=== PATIENT | female | born 1935 | race Caucasian/White ===

== ENCOUNTER 2017-09-15 11:22 | Emergency (ER) | payer OTHER ==
[~2017-09-15] VITALS: Ht 152.4 cm; Wt 72.0 kg
[2017-09-15 11:27] VITALS: TEMP 36.4; Ht 152.4 cm; Wt 72.0 kg
[2017-09-15] MEDS ORDERED: ALBUT/IPRATROP 3MG/0.5MG NEB 3 ML VIAL INH ONE (12:15)
[2017-09-15] MEDS ORDERED: VNTHFA/IN INH ×2 (12:16→14:04)
[2017-09-15] MEDS ORDERED: METF-841 PO (12:16)
[2017-09-15] MEDS ORDERED: FLUT115A INH (12:16)
[2017-09-15] MEDS ORDERED: ATOR-22 PO (12:16)
[2017-09-15] MEDS ORDERED: CARV6.252 PO (12:16)
[2017-09-15] MEDS ORDERED: INSU1INJ33 SQ (12:16)
[2017-09-15] MEDS ORDERED: CLOP1TAB15 PO (12:16)
[2017-09-15] MEDS ORDERED: LISI2.5T5 PO (12:16)
[2017-09-15] MEDS ORDERED: LEVO88TA PO (12:16)
[2017-09-15] MEDS ORDERED: CEFU1TAB33 PO (12:16)
--- NOTE | 2017-09-15 12:17 | EMERGENCY ROOM VISIT NOTE ---
History Report prepared by Anila: Jamir Ly Under the Supervision of: Dr. Edwin Pak M.D. First contact with patient: 11:57 Chief Complaint: FLU LIKE SX Stated Complaint: COUGH,CONGESTION,WEAKNESS,FEVER,BODY ACHES History of Present Illness The patient is an 81 year old female who presents to the Emergency Room with complaints of a constant illness for the past week. The patient is complaining of congestion, weakness, fever, body aches, and she states that she is coughing up green phlegm. The patient states that she was given cefuroxime three days ago , and she was negative for the flu. She additionally is on inhalers at home, though she is not on oxygen. The patient notes that she is having some abdominal soreness, and she is unsure if it is due to the coughing. She is currently on Plavix for her stents. The patient used to smoke, though she no longer does. Source of History: patient Onset: a week ago Position: other (global) Quality: other (illness) Timing: constant Associated Symptoms: + fevers, + cough, + weakness Note: Associated symptoms: congestion, body aches Review of Systems See HPI for pertinent positives & negatives. A total of 10 systems reviewed and were otherwise negative. Past Medical & Surgical Surgical Problems: (1) History of intravascular stent placement Family History Cancer Diabetes mellitus Hypertension Social History Smoking Status: Former Smoker Marital Status: Occupation Status: retired Current/Historical Medications Scheduled Albuterol Hfa (Ventolin Hfa), 2-4 PUFFS INH Q6H Atorvastatin (Lipitor), 20 MG PO DAILY Carvedilol (Coreg), 6.25 MG PO BID Cefuroxime Axetil (Cefuroxime Axetil), 250 MG PO BID Clopidogrel (Plavix), 75 MG PO DAILY Insulin Degludec (Tresiba Flextouch), 120 UNITS SQ DAILY Levothyroxine Sodium (Synthroid), 88 MCG PO DAILY Lisinopril (Lisinopril), 2.5 MG PO DAILY Metformin HCl (Metformin HCl ER), 1,000 MG PO HS Prednisone (Prednisone Tab), 0 PO DAILY Scheduled PRN Albuterol Hfa (Ventolin Hfa), 2-4 PUFFS INH Q6H PRN for SOB/Wheezing Fluticasone-Salmeterol 115/21 Mcg (Advair Hfa 115/21 Mcg), 1 PUFF INH BID PRN for SOB/Wheezing Hydrocodone W/ Homatropine (Hycodan 5/1.5MG 5 Ml), 5 ML PO HS PRN for Cough Allergies Coded Allergies: Amoxicillin (Unverified Allergy, Unknown, ., 09/15/17) Clavulanic Acid (Unverified Allergy, Unknown, ., 09/15/17) Vitamin E (Unverified Allergy, Unknown, ., 09/15/17) Physical Exam Vital Signs Date Time Temp Pulse Resp B/P (MAP) Pulse Ox O2 Delivery O2 Flow Rate FiO2 09/15/17 14:20 61 18 172/51 96 09/15/17 14:03 61 18 172/51 96 Room Air 09/15/17 13:59 Room Air 09/15/17 12:34 56 16 95 Room Air 09/15/17 12:20 Room Air 09/15/17 11:27 36.4 56 21 139/62 95 Room Air Physical Exam GENERAL: Patient is a healthy-appearing well-nourished female HEAD: Normocephalic atraumatic EYES: Ocular movements intact pupils equal and react to light OROPHARYNX mucous membranes are moist no exudates present no erythema or edema present NECK: Supple no nuchal rigidity CHEST: Good equal expansion LUNGS: Clear and equal to auscultation CARDIAC: Normal S1 and S2 ABDOMEN: Soft nontender no guarding BACK: No CVA tenderness EXTREMITIES: No pain upon palpation normal muscle strength in all groups no clubbing cyanosis or edema NEURO: Patient is following commands is answering questions appropriately. Alert and oriented x3 Cranial Nerves 2-12 grossly intact Medical Decision & Procedures ER Provider Diagnostic Interpretation: Radiology results as stated below per my review and radiologist interpretation: CHEST ONE VIEW PORTABLE HISTORY: Short of breath. COMPARISON: None. FINDINGS: Left subclavian stent is noted. Small linear scarlike density within the right upper lobe. The lungs are otherwise clear. The heart is normal in size. No pleural effusions. No pneumothorax. IMPRESSION: No acute process. Electronically signed by: Sunday Enciso M.D. 09/15/2017 12:33 PM Dictated Date/Time: 09/15/2017 12:32 PM Laboratory Results 09/15/17 12:30 Red Blood Count 4.84, Mean Corpuscular Volume 89.7, Mean Corpuscular Hemoglobin 30.2, Mean Corpuscular Hemoglobin Concent 33.6, Mean Platelet Volume 9.9, Neutrophils (%) (Auto) 56.5, Lymphocytes (%) (Auto) 29.9, Monocytes (%) (Auto) 9.3, Eosinophils (%) (Auto) 3.5, Basophils (%) (Auto) 0.3, Neutrophils # (Auto) 5.19, Lymphocytes # (Auto) 2.75, Monocytes # (Auto) 0.86, Eosinophils # (Auto) 0.32, Basophils # (Auto) 0.03 09/15/17 12:30 Test 09/15/17 12:15 09/15/17 12:23 09/15/17 12:30 Influenza Type A (RT-PCR) Neg for Influ A (NEG) Influenza Type A Antigen Neg for Influ A (NEG) Influenza Type B Antigen Neg for Influ B (NEG) Influenza Type B (RT-PCR) Neg for Influ B (NEG) White Blood Count 9.20 K/uL (4.8-10.8) Red Blood Count 4.84 M/uL (4.2-5.4) Hemoglobin 14.6 g/dL (12.0-16.0) Hematocrit 43.4 % (37-47) Mean Corpuscular Volume 89.7 fL (80-100) Mean Corpuscular Hemoglobin 30.2 pg (25-34) Mean Corpuscular Hemoglobin Concent 33.6 g/dl (32-36) Platelet Count 219 K/uL (130-400) Mean Platelet Volume 9.9 fL (7.4-10.4) Neutrophils (%) (Auto) 56.5 % Lymphocytes (%) (Auto) 29.9 % Monocytes (%) (Auto) 9.3 % Eosinophils (%) (Auto) 3.5 % Basophils (%) (Auto) 0.3 % Neutrophils # (Auto) 5.19 K/uL (1.4-6.5) Lymphocytes # (Auto) 2.75 K/uL (1.2-3.4) Monocytes # (Auto) 0.86 K/uL (0.11-0.59) Eosinophils # (Auto) 0.32 K/uL (0-0.5) Basophils # (Auto) 0.03 K/uL (0-0.2) RDW Standard Deviation 44.2 fL (36.4-46.3) RDW Coefficient of Variation 13.4 % (11.5-14.5) Immature Granulocyte % (Auto) 0.5 % Immature Granulocyte # (Auto) 0.05 K/uL (0.00-0.02) Anion Gap 6.0 mmol/L (3-11) Est Creatinine Clear Calc Drug Dose 40.5 ml/min Estimated GFR () 63.1 Estimated GFR (Non- 54.5 BUN/Creatinine Ratio 26.8 (10-20) Calcium Level 9.5 mg/dl (8.5-10.1) Total Bilirubin 0.6 mg/dl (0.2-1) Direct Bilirubin 0.2 mg/dl (0-0.2) Aspartate Amino Transf (AST/SGOT) 25 U/L (15-37) Alanine Aminotransferase (ALT/SGPT) 33 U/L (12-78) Alkaline Phosphatase 111 U/L (45-117) Total Creatine Kinase 92 U/L (26-192) Creatine Kinase MB 3.0 ng/ml (0.5-3.6) Creatine Kinase MB Ratio 3.3 (0-3.0) Troponin I 0.022 ng/ml (0-0.045) Pro-B-Type Natriuretic Peptide 99 pg/ml (0-1800) Total Protein 7.8 gm/dl (6.4-8.2) Albumin 3.7 gm/dl (3.4-5.0) Labs reviewed by ED physician. Medications Administered Medications (Trade) Dose Ordered Sig/Judy Route Start Time Stop Time Status Last Admin Dose Admin Albuterol/ Ipratropium (Duoneb) 12 ml ONE ONCE INH 09/15/17 12:15 09/15/17 12:16 DC 09/15/17 12:29 12 ML Methylprednisolone Sodium Succinate (Solu-Medrol IV) 60 mg NOW STAT IV 09/15/17 13:41 09/15/17 13:42 DC 09/15/17 13:59 60 MG ED Course 1157: Past medical records reviewed. The patient was evaluated in room B5. A complete history and physical examination was performed. 1215: DuoNeb 12ml INH 1341: Solu-Medrol 60mg IV 1410: Upon reexamination the patient is doing well. I discussed results and treatment plan with the patient. She verbalizes agreement and understanding. The patient is ready for discharge. Medical Decision Differential diagnosis: Etiologies such as infections, reactive airway disease, pneumonia, pneumothorax , COPD, CHF, cardiac ischemia, pulmonary embolism, musculoskeletal, gastrointestinal, as well as others were entertained. This is an 81-year-old female who presents emergency department complaining of respiratory like symptoms. The patient has had a cough for the past several days. She is already on cefepime. I will note that the patient is not tachycardic or hypoxic. She was given an hour-long breathing treatment in the emergency department. Her chest x-ray does not show any evidence of pneumonia and the patient does not have an elevation in her white blood cell count. I did discuss starting the patient on steroids and using shared medical decision- making the patient was in agreement with this. I reviewed the risks and benefits. I will put place her on a short steroid taper and encouraged her to continue her cefepime. Patient and daughter were in agreement with the treatment plan. Medication Reconcilliation Current Medication List: was personally reviewed by me Blood Pressure Screening Patient's blood pressure: Elevated blood pressure Blood pressure disposition: Referred to PCP Impression Primary Impression: Acute bronchitis Scribe Attestation The scribe's documentation has been prepared under my direction and personally reviewed by me in its entirety. I confirm that the note above accurately reflects all work, treatment, procedures, and medical decision making performed by me. Departure Information Dispostion Home / Self-Care Prescriptions Albuterol Hfa (VENTOLIN HFA) 200 Puffs/75729 Mcg Aers 2-4 PUFFS INH Q6H, #1 INHALER Prov: Edwin Pak MD 09/15/17 Hydrocodone W/ Homatropine (HYCODAN 5/1.5MG 5 ML) 1 Syp Syp 5 ML PO HS Y for Cough, #120 ML Prov: Edwin Pak MD 09/15/17 Prednisone (Prednisone Tab) 20 Mg Tab 0 PO DAILY, #7 TAB 2 TABS DAILY FOR 2 DAYS, THEN 1 TAB DAILY FOR 2 DAYS, THEN 1/2 TAB DAILY FOR 2 DAYS. Prov: Edwin Pak MD 09/15/17 Referrals Guido Valera M.D. (PCP) Forms HOME CARE DOCUMENTATION FORM, IMPORTANT VISIT INFORMATION, School Instructions, Work Instructions Patient Instructions Bronchitis Acute, [employer] Additional Instructions Use inhaler twice every 6 hours YetYou were found to have an elevated blood pressure today (>120 sytolic or >90 diastolic). Per medicare guidelines, you need to follow up with this blood pressure screening with your Primary Care Physician (PCP). For a new PCP call [phone]. You received narcotic or benzodiazepene medication while in the emergency room today. This is an addictive medication that may cause drowziness as well as constipation. Do not drive, operate heavy machinery, or drink alcohol under the influence of this medication. You have been examined and treated today on an emergency basis only. This is not a substitute for, or an effort to provide, complete comprehensive medical care. It is impossible to recognize and treat all injuries or illnesses in a single emergency department visit. It is therefore important that you follow up closely with Dr Valera. Call as soon as possible for an appointment. Thank you for your time and consideration. I look forward to speaking with you again soon. Please don't hesitate to call us if you have any questions. Problem Qualifiers Primary Impression: Acute bronchitis Bronchitis organism: unspecified organism Qualified Codes: J20.9 - Acute bronchitis, unspecified
[2017-09-15 12:34] VITALS: PULSE 56; O2SAT 95
--- NOTE | 2017-09-15 12:35 | DIAGNOSTIC IMAGING REPORT ---
CHEST ONE VIEW PORTABLE HISTORY: Short of breath. COMPARISON: None. FINDINGS: Left subclavian stent is noted. Small linear scarlike density within the right upper lobe. The lungs are otherwise clear. The heart is normal in size. No pleural effusions. No pneumothorax. IMPRESSION: No acute process. Electronically signed by: Sunday Enciso M.D. 09/15/2017 12:33 PM Dictated Date/Time: 09/15/2017 12:32 PM
[2017-09-15 13:06] LABS: BASO % 0.3 %; BASO ABS # 0.03 K/uL (0-0.2); COMPLETE YES; EOS % 3.5 %; HEMATOCRIT 43.4 % (37-47); IG% 0.5 %; LYMPH % 29.9 %; LYMPH ABS # 2.75 K/uL (1.2-3.4); MEAN CELL VOLUME 89.7 fL (80-100); MEAN CORPUSCULAR HEMOGLOBIN 30.2 pg (25-34); MEAN CORPUSCULAR HGB CONC 33.6 g/dl (32-36); MEAN PLATELET VOLUME 9.9 fL (7.4-10.4); MONO % 9.3 %; NEUT % 56.5 %; PLATELET COUNT 219 K/uL (130-400); RED BLOOD COUNT 4.84 M/uL (4.2-5.4)
[2017-09-15 13:23] LABS: BUN/CREATININE RATIO 26.8 (10-20); CALCIUM 9.5 mg/dl (8.5-10.1); CREATININE 0.98 mg/dl (0.60-1.20); POTASSIUM 4.7 mmol/L (3.5-5.1)
[2017-09-15 13:28] LABS: CKMB/CK RATIO 3.3 (0-3.0)
[2017-09-15] MEDS ORDERED: METHYLPREDNISOLONE 125 MG VIAL IV STA (13:41)
[2017-09-15] MEDS ORDERED: HYDR5SYP11 PO (14:02)
[2017-09-15] MEDS ORDERED: PRED20TA2 PO (14:02)
[2017-09-15 14:20] VITALS: BP 172/51; PULSE 61; O2SAT 96
[2017-09-15 14:48] LABS: INFLUENZA A PCR Neg for Influ A (NEG); INFLUENZA B PCR Neg for Influ B (NEG)
== END 2017-09-15 14:20 | disposition home or self-care (01) ==
LOC: C.EDB 11:25
DX: J20.9 Acute bronchitis, unspecified (principal); Z95.5 Presence of coronary angioplasty implant and graft; Z79.01 Long term (current) use of anticoagulants; Z87.891 Personal history of nicotine dependence; Z83.3 Family history of diabetes mellitus; Z82.49 Family history of ischemic heart disease and other diseases of the circulatory system; Z79.4 Long term (current) use of insulin; Z79.84 Long term (current) use of oral hypoglycemic drugs

== ENCOUNTER → 2018-02-13 | Outpatient (CLI) | payer OTHER ==
[~2018-02-13] MED LIST: ATOR-22 PO; CARV6.252 PO; CEFU1TAB33 PO; CLOP1TAB15 PO; FLUT115A INH; HYDR5SYP11 PO; INSU1INJ33 SQ; LEVO88TA PO; LISI-1116 PO; METF-841 PO; OPTIRAY 320 IV PRN; PRED20TA2 PO; VNTHFA/IN INH
--- NOTE | 2018-02-13 13:28 | DIAGNOSTIC IMAGING REPORT ---
[facility] RUNOFF CLINICAL HISTORY: 82 years-old Female presenting with CLAUDICATION B/L LEGS, extensive postsurgical changes of the vasculature with stenting. TECHNIQUE: Multidetector CT angiography of the abdomen and pelvis with bilateral lower extremity runoff was performed before and after the administration of intravenous contrast. 3-D volumetric and/or maximum intensity projection (MIP) images were subsequently reconstructed for review. IV contrast: 120 mL of Optiray 320. A dose lowering technique was used consistent with the principles of ALARA (as low as reasonably achievable). Stenosis measurements were based on NASCET-like criteria. COMPARISON: None. CT DOSE (mGy.cm): The estimated cumulative dose is 2559.67 mGy.cm. FINDINGS: Export Manager topogram: Unremarkable. Abdomen and pelvis vasculature: Abdominal aorta: Extensive calcified and noncalcified atherosclerotic plaque. Aneurysmal dilatation of the infrarenal portion measuring up to 3.6 cm in diameter. Celiac artery: Patent. Conventional hepatic arterial anatomy. No splenic arterial aneurysm. Superior mesenteric artery: Stent at the origin and proximal portion is patent. Remainder of the SMA also patent. Right renal artery: Atherosclerotic plaque narrows the origin of the single right main renal artery. The remainder of the vessel is patent. No aneurysm. Left renal artery: Atherosclerotic plaque narrows the origin (at least 50% stenosis). The remainder of the single left main renal artery is patent. Inferior mesenteric artery: Stenosis at the origin though the remainder of the vessel is patent. Right iliac arteries: Extensive plaque throughout the patent right common, external, and internal iliac arteries. However, nearly 50% stenosis of the right external iliac artery noted with a minimum diameter of less than 3 mm. Left iliac arteries: Patent stent in place in the left common iliac artery. Patent stent in place in the left external iliac artery. Extensive plaque throughout the patent left internal iliac artery. Right lower extremity vasculature: Right femoral arteries: Diminutive caliber with extensive atherosclerotic plaque of the right common femoral artery. Deep femoral artery patent. Superficial femoral artery occluded from the proximal to midportion and distally. The artery is reconstituted at the level of the abductor hiatus/proximal popliteal artery. Right popliteal artery: Extensive plaque though patent. Right lower leg arteries: Tibioperoneal trunk patent. Posterior tibial artery patent. Anterior tibial and peroneal arteries extremely diminutive and potentially occluded, especially in the distal portions. Right foot: Patent plantar vessels. Dorsalis pedis not opacified, possibly occluded. Left lower extremity vasculature: Left femoral arteries: Diminutive caliber with extensive atherosclerotic plaque of the left common femoral artery. Deep femoral artery patent. Superficial femoral artery patent in the proximal to midportion but occluded in the mid to distal portion. Reconstitution of minimal flow at the level of the abductor hiatus/proximal popliteal artery. Left popliteal artery: Extremely diminutive and irregular proximal popliteal artery with occlusion of the midportion at the level of surgical clips. The artery is reconstituted at the level of the knee joint, where it remains patent for the remainder of the course. Left lower leg arteries: Extensive plaque in the patent tibioperoneal trunk. Posterior tibial artery patent. Anterior tibial artery patent though extremely diminutive in the distal portion. Peroneal artery patent only to the midportion, where the artery is extremely diminutive and cannot be confirmed as patent in the remaining portion. Left foot: Plantar arteries patent. Dorsalis pedis not opacified and potentially occluded. Remaining abdomen and pelvis: Lung bases: Minimal basilar opacities, likely atelectasis. Normal heart size. No pericardial or pleural effusion. Liver: Normal morphology. No focal lesion allowing for arterial phase of contrast to menstrual hepatic arterial anatomy. Biliary: No gross evidence of intrahepatic or extra hepatic biliary ductal dilatation allowing for the phase of contrast. Gallbladder contains gallstones. Pancreas: Mild parenchymal atrophy. Spleen: Normal. Adrenal glands: Nodular thickening of the left adrenal gland, nonspecific. Right adrenal gland normal. Kidneys and ureters: Prominent well-defined hypodensity in the left kidney, likely simple cyst. No hydronephrosis. No nephrolithiasis. Bladder: Incompletely evaluated secondary to underdistention. Pelvic organs: Normal noncontrast appearance. Bowel: Diverticulosis of the sigmoid colon. No pericolonic inflammatory change. Scattered diverticula also noted throughout the colon. Appendiceal stump normal. No bowel obstruction. Peritoneal cavity: No free fluid or intraperitoneal gas. Lymph nodes: No enlarged lymph nodes in the abdomen or pelvis. Abdominal wall: Normal. Musculoskeletal: Degenerative changes of the spine. Osteopenia. IMPRESSION: 1. 3.6 cm infrarenal abdominal aortic aneurysm. 2. Patent SMA stent. 3. 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 4. Nearly 50% stenosis of the right external iliac artery with a minimum diameter of less than 3 mm. 5. Patent left common iliac artery stent. 6. Occluded right SFA from the proximal to midportion and distally with reconstitution at the right popliteal artery. 7. Extremely diminutive and potentially occluded right anterior tibial and peroneal arteries, especially in their distal portions. 8. Possibly occluded right dorsalis pedis artery. 9. Occluded left SFA in the mid to distal portion with reconstitution of flow at the left popliteal artery. 10. Occluded left popliteal artery at the level of surgical clips with distal reconstitution of flow. 11. Extremely diminutive or occluded left peroneal artery. 12. Possibly occluded left dorsalis pedis artery. Electronically signed by: Yoni Scherer M.D. 02/13/2018 1:22 PM Dictated Date/Time: 02/13/2018 12:59 PM
== END | disposition home or self-care (01) ==
LOC: C.CTS 12:05
PROVIDERS: ATTEND Surgery Vascular Surgery
DX: I73.9 Peripheral vascular disease, unspecified (principal); I71.4 Abdominal aortic aneurysm, without rupture; I70.1 Atherosclerosis of renal artery; I77.1 Stricture of artery; I74.3 Embolism and thrombosis of arteries of the lower extremities

== ENCOUNTER 2021-03-29 10:37 | Inpatient (IN) ==
[2021-03-29 12:15] LABS: Hematocrit (blood only) 23.4 % (37-47); Hemoglobin 6.9 g/dL (12.0-16.0); Mean Corpuscular Hemoglobin 24.5 pg (25-34); Mean Corpuscular Hgb Conc 29.5 g/dL (32-36); Mean Platelet Volume 10.8 fL (7.4-10.4); Platelet Count 102 K/uL (130-400); RDW Coefficient of Variation 16.4 % (11.5-14.5); RDW Standard Deviation 50.6 fL (36.4-46.3); Red Blood Count 2.82 M/uL (4.2-5.4); White Blood Count 4.25 K/uL (4.8-10.8)
[2021-03-29 12:16] LABS: Alanine Aminotransferase 30 U/L (12-78); Albumin Level 3.6 gm/dl (3.4-5.0); Aspartate Aminotransferase 17 U/L (15-37); Blood Urea Nitrogen 20 mg/dl (7-18); Calcium 9.3 mg/dl (8.5-10.1); Carbon Dioxide 18 mmol/L (21-32); Chloride 117 mmol/L (98-107); Est GFR (African American) 63.7 ml/min; Glucose 95 mg/dl (70-99); Lipase 182 U/L (73-393); Sodium 141 mmol/L (136-145)
[2021-03-29 12:20] LABS: Albumin Globulin Ratio 1.1 (0.9-2); Alkaline Phosphatase 81 U/L (45-117); Bilirubin,Total 0.7 mg/dl (0.2-1); Globulin 3.2 gm/dl (2.5-4.0); Total Protein 6.8 gm/dl (6.4-8.2); Troponin I < 0.015 ng/ml (0-0.045)
[2021-03-29] MEDS ORDERED: SODIUM CHLORIDE 0.9% 250 ML IV PRN ×2 (12:24→21:33)
[2021-03-29 12:34] LABS: Basophils # (auto) 0.01 K/uL (0-0.2); Basophils % (auto) 0.2 %; Eosinophils # (auto) 0.12 K/uL (0-0.5); Eosinophils % (auto) 2.8 %; Giant Platelets 1+; Hypochromasia Present; Lymphocytes # (auto) 1.33 K/uL (1.2-3.4); Lymphocytes % (auto) 31.3 %; Monocytes # (auto) 0.43 K/uL (0.11-0.59); Monocytes % (auto) 10.1 %; Neutrophils # (auto) 2.36 K/uL (1.4-6.5); Neutrophils % (auto) 55.6 %
--- NOTE | 2021-03-29 12:56 | CT Scan Report ---
CT SCAN OF THE ABDOMEN AND PELVIS WITHOUT IV CONTRAST CLINICAL HISTORY: Generalized abdominal pain. Left flank pain. COMPARISON STUDY: Abdominal CT dated 12/16/2020. TECHNIQUE: CT scan of the abdomen and pelvis is performed from the lung bases to the proximal femora. Images are reviewed in the axial, sagittal, and coronal planes. IV contrast was not administered for this examination. A dose lowering technique was utilized adhering to the principles of ALARA. CT DOSE: 527.98 mGy.cm FINDINGS: Lung bases: The heart is normal in size and without pericardial effusion. The coronary arteries are d ensely calcified. The lung bases are clear noting bibasilar scarring/atelectasis. There is a small hi atal hernia. Liver: The unenhanced liver is cirrhotic in morphology and heterogeneous in attenuation. There is nod ularity of the hepatic surface contour. There is no intrahepatic biliary ductal dilatation. Gallbladder: The gallbladder is mildly distended and there are numerous calcified gallstones. Althoug h gallstones are seen in the region of the gallbladder neck, there is no CT evidence of acute cholecy stitis. Spleen: The spleen is top normal in size measuring 13.1 cm in length. Pancreas: The unenhanced pancreas is moderately atrophic and grossly unremarkable. Adrenal glands: Unremarkable. Kidneys: The unenhanced kidneys are atrophic and without hydronephrosis. There are no renal calculi i dentified. A 3.6 cm cyst is noted in the interpolar left kidney. Abdominal vasculature: There is advanced atherosclerotic calcification of the abdominal aorta. An inf rarenal abdominal aortic aneurysm measures 3.7 x 3.9 cm (AP x transverse). Stents are noted in the hall perior mesenteric artery and the left iliac artery. Bowel: There is moderate colonic diverticulosis without CT evidence of acute diverticulitis. No bowel obstruction is identified. Fecal retention is noted in the right colon. The appendix is not identif ied and reported surgically absent. Peritoneum: No intraperitoneal free air is identified. There is trace abdominopelvic ascites. There i s a fat-containing umbilical hernia. Lymphadenopathy: None. Pelvic viscera: The bladder, uterus, and adnexa are normal as visualized. There is a fat-containing r ight inguinal hernia. Skeletal structures: The skeletal structures are osteopenic. There is mild to moderate lumbosacral sp ondylosis. No lytic or blastic lesions are seen. IMPRESSION: 1. Cirrhotic liver morphology. 2. Trace abdominopelvic ascites suggest portal hypertension. 3. The gallbladder is mildly distended with numerous calcified gallstones. Although there are gallsto alba in the region of the gallbladder neck, there is no clear CT evidence of acute cholecystitis. If t here is clinical concern for acute cholecystitis a right upper quadrant ultrasound should be consider ed. 4. Colonic diverticulosis without CT evidence of acute diverticulitis. 5. There is a 3.7 x 3.9 cm infrarenal abdominal aortic aneurysm. 6. Additional findings as above. ACT 112: Negative or not required by law. Electronically signed by: Luis Peña M.D. 03/29/2021 12:55 PM
--- NOTE | 2021-03-29 13:54 | Emergency Department Note ---
History of Present Illness General Chief complaint: Abdominal Pain Stated complaint: ABDOMINAL PAIN, BACK PAIN, TROUBLE BREATHING Time Seen by Provider: 03/29/21 11:46 Source: patient Mode of arrival: ambulatory Limitations: no limitations History of Present Illness Provider complaint: Abdominal pain Maximum Pain Intensity: 0 This is an 85-year-old female who presents to the ED with a chief complaint of some generalized abdominal pain. The patient states that her symptoms are worse with standing. The pain was initially in the right side and now is in the left flank area. She also states that she is primarily concerned about possible anemia. She states that she had anemia with similar symptoms back December. The patient had a EGD at that time that did not show any variceal bleeding. She was supposed to have a colonoscopy but this was not scheduled during her stay and is scheduled in April. The patient does not notice any blood in her stool. She does state that her symptoms that she is having today are similar to her symptoms back in December. Home Medications Medication Instructions Recorded Confirmed Type Tresiba FlexTouch U-200 60 unit SUBCUT QA 04/10/19 03/29/21 History albuterol sulfate [Ventolin HFA] 2 - 4 puff INHALATION Q4H PRN 04/10/19 03/29/21 History aspirin [Aspirin Low Dose] 81 mg PO QAM 04/10/19 03/29/21 History atorvastatin 20 mg PO QAM 04/10/19 03/29/21 History carvedilol 6.25 mg PO BID 04/10/19 03/29/21 History clopidogrel 75 mg PO QAM 04/10/19 03/29/21 History levothyroxine 88 mcg PO QAM 04/10/19 03/29/21 History losartan 50 mg PO HS 04/10/19 03/29/21 History metformin 1,000 mg PO ACHS 04/10/19 03/29/21 History ferrous sulfate [FeroSul] 325 mg PO DAILY #30 tab 12/21/20 03/29/21 Rx famotidine 40 mg PO HS 03/29/21 03/29/21 History Allergies Allergy/AdvReac Type Severity Reaction Status Date / Time amoxicillin Allergy Unknown . Unverified 03/29/21 11:47 clavulanic acid Allergy Unknown . Unverified 03/29/21 11:47 vitamin E (d-alpha Allergy Unknown . Unverified 03/29/21 11:47 tocopherol) Past Med/Surg History Medical History Anemia Emphysema Epigastric abdominal pain HLD (hyperlipidemia) Shortness of breath Surgical History History of appendectomy History of intravascular stent placement Reported Left subclavian, superior mesenteric artery, L iliac, L fempop bypass - Dr Lupe Mann [place] Family History Other Diabetes Hypertension Social History Smoking Status: Former smoker Hx Alcohol Use: No Hx Substance Use: No Preferred Language: Nepali Communication Ability: Effective Chief Scientist Required: No Beliefs That Will Affect Care: None Current Living Situation: Alone How many Children do You have: 4 Feels Safe at Home: Yes Assistive Devices: Denture - Upper and Denture - Lower Review of Systems A total of 10 systems reviewed and were otherwise negative Physical Exam Vital Signs Vital Signs - 24 hr 03/29/21 10:52 03/29/21 11:18 03/29/21 12:09 Temperature 36.5 C Temperature Source Temporal Artery Scan Pulse Rate 65 61 62 Pulse Rate from SpO2 Sensor 59 L 62 Respiratory Rate 17 18 19 Respiratory Effort / Characteristics Non-Labored Spontaneous Respiratory Depth Normal Respiratory Pattern Regular Blood Pressure 133/78 165/43 H 172/66 H Blood Pressure Mean 96 83 101 Blood Pressure Position Sitting Pulse Oximetry 97 98 100 Oxygen Delivery Method Room Air Sepsis Recent Fever Within 48 Hours No Sepsis New/Unexplained Change in Mental Status No Sepsis Action Taken by Nursing No Action Required 03/29/21 12:40 Temperature Temperature Source Pulse Rate 64 Pulse Rate from SpO2 Sensor 64 Respiratory Rate 18 Respiratory Effort / Characteristics Respiratory Depth Respiratory Pattern Blood Pressure 191/59 H Blood Pressure Mean 103 Blood Pressure Position Pulse Oximetry 99 Oxygen Delivery Method Sepsis Recent Fever Within 48 Hours Sepsis New/Unexplained Change in Mental Status Sepsis Action Taken by Nursing CONSTITUTIONAL/VITAL SIGNS: Reviewed / noted above. GENERAL: Non-toxic in appearance. INTEGUMENTARY: Warm, dry, and [place]. HEAD: Normocephalic. EYES: without scleral icterus or trauma. ENT/OROPHARYNX: clear and moist. LYMPHADENOPATHY/NECK: Is supple without lymphadenopathy or meningismus. RESPIRATORY: Lungs clear and equal. CARDIOVASCULAR: Regular rate and rhythm. GI/ABDOMEN: Soft and minimally tender diffusely.. No organomegaly or pulsatile mass. No rebound or guarding. Normal bowel sounds. EXTREMITIES: Warm and well perfused. BACK: No CVA tenderness. NEUROLOGICAL: Intact without focal deficits. PSYCHIATRIC: normal affect. MUSCULOSKELETAL: Normally developed with good muscle tone. TRIAGE NURSING DOCUMENTATION REVIEWED. Critical Care Time Critical Care Time: Yes Total Critical Care Time: 35 I have personally spent 35 minutes of critical care time in the direct management of this patient. This includes bedside care, interpretation of diagnostic studies, and testing, discussion with consultants, patient, and family members, and other required patient management activities. This 30 5minutes is in excess of all separately billable procedures. Medical Decision Making Differential Diagnosis Differential considered: pancreatitis, hepatitis, acute cholecystitis, AAA, UTI, pyelonephritis, kidney stones, appendicitis, diverticulitis, shingles, bowel obstruction, mesenteric ischemia, intussusception,hernia. Medical Records Attestation: I reviewed the patient's medical records. Home Medications Current Medication List: was personally reviewed by me Laboratory Data Attestation: I reviewed the patient's lab results. Result diagrams: 03/29/21 11:25 03/29/21 11:25 Lab Results 03/29/21 03/29/21 03/29/21 Range/Units 11:25 11:25 12:51 WBC 4.25 L (4.8-10.8) K/uL RBC 2.82 L (4.2-5.4) M/uL Hgb 6.9 L* (12.0-16.0) g/dL Hct 23.4 L (37-47) % MCV 83.0 (80-100) fL MCH 24.5 L (25-34) pg MCHC 29.5 L (32-36) g/dL RDW Std Deviation 50.6 H (36.4-46.3) fL RDW Coeff of Daniela 16.4 H (11.5-14.5) % Plt Count 102 L (130-400) K/uL MPV 10.8 H (7.4-10.4) fL Immature Gran % (Auto) 0.0 % Neut % (Auto) 55.6 % Lymph % (Auto) 31.3 % Gregory % (Auto) 10.1 % Eos % (Auto) 2.8 % Baso % (Auto) 0.2 % Neut # (Auto) 2.36 (1.4-6.5) K/uL Lymph # (Auto) 1.33 (1.2-3.4) K/uL Gregory # (Auto) 0.43 (0.11-0.59) K/uL Eos # (Auto) 0.12 (0-0.5) K/uL Baso # (Auto) 0.01 (0-0.2) K/uL Immature Gran # (Auto) 0.00 (0.00-0.02) K/uL Giant Platelets 1+ Hypochromasia Present Sodium 141 (136-145) mmol/L Potassium 6.0 H (3.5-5.1) mmol/L Chloride 117 H (98-107) mmol/L Carbon Dioxide 18 L (21-32) mmol/L Anion Gap 6.0 (3-11) BUN 20 H (7-18) mg/dl Creatinine 0.95 (0.6-1.2) mg/dl Est Cr Clr Drug Dosing Not Reportable Est GFR ( Amer) 63.7 ml/min Est GFR (Non-Af Amer) 55.0 ml/min BUN/Creatinine Ratio 21.0 H (10-20) Glucose 95 (70-99) mg/dl Calcium 9.3 (8.5-10.1) mg/dl Total Bilirubin 0.7 (0.2-1) mg/dl AST 17 (15-37) U/L ALT 30 (12-78) U/L Alkaline Phosphatase 81 (45-117) U/L Troponin I < 0.015 (0-0.045) ng/ml Total Protein 6.8 (6.4-8.2) gm/dl Albumin 3.6 (3.4-5.0) gm/dl Globulin 3.2 (2.5-4.0) gm/dl Albumin/Globulin Ratio 1.1 (0.9-2) Lipase 182 (73-393) U/L Blood Type B Positive Antibody Screen NEGATIVE Crossmatch See Detail Imaging Data Radiologist's Impression: Abdomen/Pelvis CT 03/29/21 11:58 CT SCAN OF THE ABDOMEN AND PELVIS WITHOUT IV CONTRAST CLINICAL HISTORY: Generalized abdominal pain. Left flank pain. COMPARISON STUDY: Abdominal CT dated 12/16/2020. TECHNIQUE: CT scan of the abdomen and pelvis is performed from the lung bases to the proximal femora. Images are reviewed in the axial, sagittal, and coronal planes. IV contrast was not administered for this examination. A dose lowering technique was utilized adhering to the principles of ALARA. CT DOSE: 527.98 mGy.cm FINDINGS: Lung bases: The heart is normal in size and without pericardial effusion. The coronary arteries are densely calcified. The lung bases are clear noting bibasilar scarring/atelectasis. There is a small hiatal hernia. Liver: The unenhanced liver is cirrhotic in morphology and heterogeneous in attenuation. There is nodularity of the hepatic surface contour. There is no intrahepatic biliary ductal dilatation. Gallbladder: The gallbladder is mildly distended and there are numerous calcified gallstones. Although gallstones are seen in the region of the gallbladder neck, there is no CT evidence of acute cholecystitis. Spleen: The spleen is top normal in size measuring 13.1 cm in length. Pancreas: The unenhanced pancreas is moderately atrophic and grossly unremarkable. Adrenal glands: Unremarkable. Kidneys: The unenhanced kidneys are atrophic and without hydronephrosis. There are no renal calculi identified. A 3.6 cm cyst is noted in the interpolar left kidney. Abdominal vasculature: There is advanced atherosclerotic calcification of the abdominal aorta. An infrarenal abdominal aortic aneurysm measures 3.7 x 3.9 cm (AP x transverse). Stents are noted in the superior mesenteric artery and the left iliac artery. Bowel: There is moderate colonic diverticulosis without CT evidence of acute diverticulitis. No bowel obstruction is identified. Fecal retention is noted in the right colon. The appendix is not identified and reported surgically absent. Peritoneum: No intraperitoneal free air is identified. There is trace abdominopelvic ascites. There is a fat-containing umbilical hernia. Lymphadenopathy: None. Pelvic viscera: The bladder, uterus, and adnexa are normal as visualized. There is a fat-containing right inguinal hernia. Skeletal structures: The skeletal structures are osteopenic. There is mild to moderate lumbosacral spondylosis. No lytic or blastic lesions are seen. IMPRESSION: 1. Cirrhotic liver morphology. 2. Trace abdominopelvic ascites suggest portal hypertension. 3. The gallbladder is mildly distended with numerous calcified gallstones. Although there are gallstones in the region of the gallbladder neck, there is no clear CT evidence of acute cholecystitis. If there is clinical concern for acute cholecystitis a right upper quadrant ultrasound should be considered. 4. Colonic diverticulosis without CT evidence of acute diverticulitis. 5. There is a 3.7 x 3.9 cm infrarenal abdominal aortic aneurysm. 6. Additional findings as above. ACT 112: Negative or not required by law. Electronically signed by: Luis Peña M.D. 03/29/2021 12:55 PM ECG Data Attestation: I personally reviewed and interpreted this ECG as follows: Indication: + abdominal pain Rate (beats per minute): 62 Rhythm: + normal sinus ECG Intervals/blocks: + First degree AV block and + Normal QT-c ECG ST segments: no ST elevation ECG Findings: no PVCs MDM Narrative Patient presents to the ED with a chief complaint of abdominal pain. Details listed above. The patient's hemoglobin today is 6.9. Chemistry panel shows a potassium of 6. EKG shows a normal sinus rhythm. Chemistry panel, troponin and lipase were unremarkable. CT scan of the abdomen pelvis reveals a cirrhotic liver. Gallbladder is mildly distended. Gallstones. No CT evidence of acute cholecystitis. The patient was typed and screened. She will be transfused 1 unit of blood in the emergency department. Guaiac testing of her stool shows trace guaiac positive but no significant amount of stool was obtained on testing. She did have a previous guaiac stool on her previous admission. She states that she was scheduled to have a colonoscopy in April. She was unable to have it back in December when she was here. Impression & Plan Anemia, Abdominal pain, GI bleed Discharge Plan Visit Data Chief Complaint: Abdominal Pain Stated Complaint: ABDOMINAL PAIN, BACK PAIN, TROUBLE BREATHING ED Provider: Edwin Armijo Discharge Problem: Anemia, Abdominal pain, GI bleed Patient Disposition: Being Evaluated by Hospitalist Forms Stand Alone Forms: My [facility] Prescriptions Prescriptions: No Action ferrous sulfate [FeroSul] 325 mg (65 mg iron) tablet 325 mg PO DAILY Qty: 30 RF: 0 losartan 50 mg tablet 50 mg PO HS RF: 0 metformin 500 mg tablet 1,000 mg PO ACHS RF: 0 carvedilol 6.25 mg tablet 6.25 mg PO BID RF: 0 atorvastatin 20 mg tablet 20 mg PO QAM RF: 0 clopidogrel 75 mg tablet 75 mg PO QAM RF: 0 aspirin [Aspirin Low Dose] 81 mg Tablet,Delayed Release (Dr/Ec) 81 mg PO QAM RF: 0 levothyroxine 88 mcg tablet 88 mcg PO QAM RF: 0 albuterol sulfate [Ventolin HFA] 90 mcg/actuation HFA aerosol inhaler 2 - 4 puff inhalation Q4H PRN (Reason: Shortness Of Breath) RF: 0 Tresiba FlexTouch U-200 200 unit/mL (3 mL) insulin pen 60 unit subcut QAM RF: 0 famotidine 40 mg tablet 40 mg PO HS RF: 0 Referrals Referrals: Guido Valera [Primary Care Provider] - Discharge Problem: Anemia Qualifiers: Anemia type: unspecified type Qualified Code(s): D64.9 - Anemia, unspecified Abdominal pain Qualifiers: Abdominal location: generalized Qualified Code(s): R10.84 - Generalized abdominal pain
--- NOTE | 2021-03-29 13:58 | History & Physical Report ---
Date of Service March 29, 2021 Assessment & Plan (1) Abdominal pain: -Admit to PCU for potential GI bleed, cirrhosis, anemia with hemoglobin of 6.9 -GI consulted for possible C-scope -Continue n.p.o., last time she ate was small bite of protein bar while in the ER this afternoon. Okay with sips and chips for now. -On Plavix and aspirin for history of stenting in Left subclavian, SMA, left iliac L fempop bypass, will continue due to risk of holding these medications -Guiac all stools, trace positive in the ER -Repeat hgb this evening (2) Anemia: -Hemoglobin of 6.9 on admission, previously 12 in October, required a unit of blood transfusion during her December hospitalization -Betsy and cross, blood consented -Continue ASA and plavix due to hx of stents for now since only trace heme positive on ELIO, no acute bloody stools, hematemesis (3) HLD (hyperlipidemia): -Continue atorvastatin 20 mg daily (4) PAD (peripheral artery disease): (5) History of intravascular stent placement: - hx of multiple stents (Left subclavian, SMA, left iliac L fempop bypass) by Dr. Pringle with [facility] - Will continue plavix and asa as above. - Continue carvedilol 6.25 mg BID, losartan 50 mg HS (6) Hyperkalemia: - elevated at 6.0 on admission - Glucose stable at ~120. Continue tresiba 60 U QAM. - EKG reviewed, T wave changes present compared to December. - Will order D50, calcium and insulin now. Recheck BMP this evening and hydrate with LR at 100 mL/hr. (7) COPD (chronic obstructive pulmonary disease): -History of such, does not wear O2 at baseline, continue nebulizer (8) Graves disease: -Continue levothyroid 88 mcg daily (9) DM II (diabetes mellitus, type II), controlled: -Continue ISS with Accu-Cheks AC at bedtime -Holding metformin -No longer on Januvia as outpatient -Cont tresiba 60 U QAM DVT ppx: - teds, scds, Plavix and aspirin as above CODE: Full code Dispo: From home, likely to remain in the hospital x 1-2 days. History of Present Illness Primary Care Provider: Guido Valera This is an 85-year-old female with PMHx of PAD s/p stent L subclavian, superior mesenteric artery, L iliac and fempop bypass, infrarenal AAA measuring 3.9 cm, HTN, HLD, CKD III, insulin dependent DM II, COPD, and Graves disease. She was previously admitted on December 18 through December 21 for chest pain, shortness of breath, abdominal pain and anemia. She is on Plavix and aspirin for history of stenting as mentioned above and follows with Dr. Pringle with [facility] vascular surgery. During her previous hospitalization at [facility], she required 1 unit of PRBCs and had an EGD completed showing grade 1 esophageal varices however did not have any evidence of active bleeding. This also showed cirrhosis. At that time she was recommended to have an outpatient colonoscopy as one was not able to be done in the inpatient setting, however that has not been scheduled until the end of April. Today the patient presents with similar abdominal pain as compared to her last admission. It began anterior on bilateral sides and seemed to wrap around to her back. She admits to lightheadedness and weakness over the past month worse whenever she goes from a sitting to standing position. Her appetite has been poor recently, and today felt nauseous, no vomiting. She denies any changes in stool, no diarrhea, no BRBPR, blood streaking or dark tarry stools. She is found to have a hemoglobin of 6.9 on admission and is ordered to get 1 unit PRBCs in the ER. She is trace guaiac positive on Hemoccult testing. Her daughter is present with her at bedside and helps support the history. Allergies Allergy/AdvReac Type Severity Reaction Status Date / Time amoxicillin Allergy Unknown . Unverified 03/29/21 11:47 clavulanic acid Allergy Unknown . Unverified 03/29/21 11:47 vitamin E (d-alpha Allergy Unknown . Unverified 03/29/21 11:47 tocopherol) Home Medications Medication Instructions Recorded Confirmed Type Tresiba FlexTouch U-200 60 unit SUBCUT QAM 04/10/19 03/29/21 History albuterol sulfate [Ventolin HFA] 2 - 4 puff INHALATION Q4H PRN 04/10/19 03/29/21 History aspirin [Aspirin Low Dose] 81 mg PO QAM 04/10/19 03/29/21 History atorvastatin 20 mg PO QAM 04/10/19 03/29/21 History carvedilol 6.25 mg PO BID 04/10/19 03/29/21 History clopidogrel 75 mg PO QAM 04/10/19 03/29/21 History levothyroxine 88 mcg PO QAM 04/10/19 03/29/21 History losartan 50 mg PO HS 04/10/19 03/29/21 History metformin 1,000 mg PO ACHS 04/10/19 03/29/21 History ferrous sulfate [FeroSul] 325 mg PO DAILY #30 tab 12/21/20 03/29/21 Rx famotidine 40 mg PO HS 03/29/21 03/29/21 History Past Med/Surg History Medical History Anemia Emphysema Epigastric abdominal pain HLD (hyperlipidemia) Shortness of breath Surgical History History of appendectomy History of intravascular stent placement Reported Left subclavian, superior mesenteric artery, L iliac, L fempop bypass - Dr Andrade [facility] Family History Other Diabetes Hypertension Social History Smoking Status: Former smoker Hx Alcohol Use: No Hx Substance Use: No Preferred Language: [place] Communication Ability: Effective Child Care Leader Required: No Beliefs That Will Affect Care: None Current Living Situation: Alone How many Children do You have: 4 Feels Safe at Home: Yes Assistive Devices: Denture - Upper and Denture - Lower Review of Systems Review of Systems: Constitutional: No fever, sweats or chills Eyes: No diplopia, no worsening or blurred vision ENT: normal hearing, no trouble swallowing Respiratory: No cough, sputum, dyspnea at rest or on exertion Cardiovascular: No chest pain, tightness or palpitations Abdomen: + As per HPI, + pain, + nausea, vomiting, no bowel changes or diarrhea or constipation, no blood Musculoskeletal: No joint pain, calf pain, swelling Neurologic: No weakness, numbness/tingling, or balance problems Psychiatric: No anxiety or depression Skin: No rash or itch Physical Exam Physical Exam: General: awake, alert, no apparent distress, + pallor Head: Normocephalic, atraumatic ENT: PERRL, EOMI, no pharyngeal exudate, mucous membranes moist Chest: Faint crackles at bases, on room air with O2 sats 99%, no wheezing or rails Cardiac: Regular rate and rhythm, no murmur, no JVD, normal peripheral pulses, good capillary refill Abdominal: NABS x 4 quadrants, soft, nondistended, + tender to palpation in epigastric region and suprapubic, no rebound or guarding, no flank pain or CVA tenderness Extremities: Normal inspection, no peripheral edema or erythema, calfs nontender to palpation Psych: Normal mood and affect Neuro: AAO x 3, strength intact bilaterally and rated 5/5, no motor deficits, speech is clear, no peripheral sensory deficits Results & Data Results & Data ([facility]) Vital Signs (Past 12 Hours) Vital Signs Temp Pulse Resp BP Pulse Ox 03/29/21 12:40 64 18 191/59 H 99 03/29/21 12:09 62 19 172/66 H 100 03/29/21 11:18 61 18 165/43 H 98 03/29/21 10:52 36.5 C 65 17 133/78 97 Diagnostic Findings Abdomen/Pelvis CT 03/29/21 11:58 CT SCAN OF THE ABDOMEN AND PELVIS WITHOUT IV CONTRAST CLINICAL HISTORY: Generalized abdominal pain. Left flank pain. COMPARISON STUDY: Abdominal CT dated 12/16/2020. TECHNIQUE: CT scan of the abdomen and pelvis is performed from the lung bases to the proximal femora. Images are reviewed in the axial, sagittal, and coronal planes. IV contrast was not administered for this examination. A dose lowering technique was utilized adhering to the principles of ALARA. CT DOSE: 527.98 mGy.cm FINDINGS: Lung bases: The heart is normal in size and without pericardial effusion. The c oronary arteries are densely calcified. The lung bases are clear noting bibasilar scarring/atelectasis. There is a small hiatal hernia. Liver: The unenhanced liver is cirrhotic in morphology and heterogeneous in attenuation. There is nodularity of the hepatic surface contour. There is no intrahepatic biliary ductal dilatation. Gallbladder: The gallbladder is mildly distended and there are numerous calcified gallstones. Although gallstones are seen in the region of the gallbladder neck, there is no CT evidence of acute cholecystitis. Spleen: The spleen is top normal in size measuring 13.1 cm in length. Pancreas: The unenhanced pancreas is moderately atrophic and grossly unremarkable. Adrenal glands: Unremarkable. Kidneys: The unenhanced kidneys are atrophic and without hydronephrosis. There are no renal calculi identified. A 3.6 cm cyst is noted in the interpolar left kidney. Abdominal vasculature: There is advanced atherosclerotic calcification of the abdominal aorta. An infrarenal abdominal aortic aneurysm measures 3.7 x 3.9 cm (AP x transverse). Stents are noted in the superior mesenteric artery and the left iliac artery. Bowel: There is moderate colonic diverticulosis without CT evidence of acute diverticulitis. No bowel obstruction is identified. Fecal retention is noted in the right colon. The appendix is not identified and reported surgically absent. Peritoneum: No intraperitoneal free air is identified. There is trace abdominopelvic ascites. There is a fat-containing umbilical hernia. Lymphadenopathy: None. Pelvic viscera: The bladder, uterus, and adnexa are normal as visualized. There is a fat-containing right inguinal hernia. Skeletal structures: The skeletal structures are osteopenic. There is mild to moderate lumbosacral spondylosis. No lytic or blastic lesions are seen. IMPRESSION: 1. Cirrhotic liver morphology. 2. Trace abdominopelvic ascites suggest portal hypertension. 3. The gallbladder is mildly distended with numerous calcified gallstones. Although there are gallstones in the region of the gallbladder neck, there is no clear CT evidence of acute cholecystitis. If there is clinical concern for acute cholecystitis a right upper quadrant ultrasound should be considered. 4. Colonic diverticulosis without CT evidence of acute diverticulitis. 5. There is a 3.7 x 3.9 cm infrarenal abdominal aortic aneurysm. 6. Additional findings as above. ACT 112: Negative or not required by law. Electronically signed by: Luis Peña M.D. 03/29/2021 12:55 PM ECG Additional Comments: Vent. Rate : 062 BPM Atrial Rate : 062 BPM P-R Int : 204 ms QRS Dur : 096 ms QT Int : 420 ms P-R-T Axes : 040 -13 104 degrees QTc Int : 426 ms Normal sinus rhythm Left ventricular hypertrophy with repolarization abnormality Abnormal ECG When compared with ECG of 17-DEC-2020 07:17, T wave inversion less evident in Lateral leads Code Status & VTE Plan Code Status Full code-discussed with patient and daughter at bedside Supervising Physician Co-Signing Physician Notes I saw this patient with the physician resident assistant, I participated in the history, physical, review of systems, and physical exam. I reviewed the medications with the patient and the physician resident assistant and helped reconcile the medications. I helped take a detailed family and social history as well. I formulated the assessment and plan personally with the physician resident assistant and went over it with the patient. Physical Exam Gen-AAO x 3, NAD, Afebrile Head-NCAT, EOMI, PERRLA, Anicteric Sclera, No Posterior Pharyngeal Erythema Neck-Supple, No JVD, No Thyromegaly, No Masses, No LAD, No Bruits Lungs-Clear to Auscultation Bilaterally, No Rales, No Rhonchi, No Wheezing, No Crepitus Chest-No S4, +S1, +S2, No S3, No Murmurs, No Rubs, No Gallops, No Ectopy Abdomen-Soft, Bowel Sounds Present, Non Tender, Non Distended, No Hepatomegaly, No Splenomegaly, No Palpable Masses, No Rebound, No Rigidity, No Guarding Musculoskeletal-Full Range of Motion Bilaterally, No CVAT Extremities-No Cyanosis, No Clubbing, No Edema Nuero-Cranial Nerves II-XII grossly intact, Motor WNL, DTRs WNL, Strength WNL, Non Focal Psych-Normal Mood (1) Anemia Anemia type: unspecified type Qualified Code(s): D64.9 - Anemia, unspecified (2) Abdominal pain Abdominal location: generalized Qualified Code(s): R10.84 - Generalized abdominal pain
--- NOTE | 2021-03-29 14:44 | Electrocardiogram Report ---
Test Reason : Blood Pressure : / mmHG Vent. Rate : 062 BPM Atrial Rate : 062 BPM P-R Int : 204 ms QRS Dur : 096 ms QT Int : 420 ms P-R-T Axes : 040 -13 104 degrees QTc Int : 426 ms Normal sinus rhythm Left ventricular hypertrophy with repolarization abnormality Abnormal ECG When compared with ECG of 17-DEC-2020 07:17, T wave inversion less evident in Lateral leads Confirmed by Evans Washington ([id number]) on 03/29/2021 2:44:24 PM Referred By: Confirmed By:Evans Washington
[2021-03-29] MEDS ORDERED: DEXTROSE 50% 50 ML SYRINGE IV ONE ×3 (15:12→23:10)
[2021-03-29] MEDS ORDERED: NovoLIN-R INSULIN PER UNIT CHARGE IV STA (15:12)
[2021-03-29] MEDS ORDERED: CALCIUM GLUCONATE 10% 10 ML VIAL IV STA (16:04)
[2021-03-29] MEDS ORDERED: CALCIUM GLUCONATE 1,000 MG/60 ML BAG IV STA (16:42)
[2021-03-29 17:48] LABS: Appearance Urine Clear (Clear); Bacteria Urine Automated 4+ (Negative); Bilirubin Urine Negative (Negative); Blood Urine Negative (Negative); Color Urine Yellow; Epithelial Cell Urine Auto >30 /lpf (0-5); Glucose Urine UA Negative (Negative); Ketones Urine Negative (Negative); Leukocyte Esterase Urine 2+ (Negative); Nitrite Urine Negative (Negative); Protein Urine 1+ (Negative); Specific Gravity Urine 1.015 (1.000-1.030); Urobilinogen Urine Negative (Negative); WBC Urine Automated >30 /hpf (0-5); pH Urine 6.5 (4.5-7.5)
[2021-03-29] MEDS ORDERED: DEXTROSE 50% 50 ML SYRINGE IV PRN (19:06)
[2021-03-29] MEDS ORDERED: CARBOHYDRATES FOR HYPOGLYCEMIA PO PRN (19:06)
[2021-03-29] MEDS ORDERED: GLUCAGON FOR INJ 1 MG VIAL SQ PRN (19:06)
[2021-03-29] MEDS ORDERED: GLUCOSE 10 TABS/TUBE PO PRN (19:06)
[2021-03-29] MEDS ORDERED: GLUCOSE 40% GEL 15 GM TUBE PO PRN (19:06)
[2021-03-29] MEDS ORDERED: ALBUTEROL HFA 8 GM INHALER INH PRN (19:06)
[2021-03-29] MEDS ORDERED: ONDANSETRON INJ 2 MG/ML 2 ML VIAL IV PRN (19:06)
[2021-03-29] MEDS ORDERED: LACTATED RINGER'S 1,000 ML IV SCH (20:00)
[2021-03-29] MEDS: INSULIN ASPART 100 UNITS/ML 3 ML PEN SC SCH ×2 (20:06→20:14)
[2021-03-29] MEDS: FAMOTIDINE 20 MG in SYRINGE 3 ML IV SCH (20:20)
[2021-03-29] MEDS: carvediloL 6.25 MG TAB PO SCH (20:31)
[2021-03-29] MEDS ORDERED: LOSARTAN POTASSIUM 50 MG TAB PO SCH (21:00)
[2021-03-29 21:26] LABS: Calcium 9.6 mg/dl (8.5-10.1); Creatinine Clr Calc Pharmacy 41.9 ml/min; Est GFR (African American) 71.9 ml/min
--- NOTE | 2021-03-29 21:48 | XRay Report ---
SINGLE VIEW CHEST CLINICAL HISTORY: Hypertension. FINDINGS: An AP, portable, upright chest radiograph is compared to chest x-ray and chest CT dated 12/07. The examination is degraded by portable technique and apical lordotic positioning. Vascular s tents project over the left thoracic outlet. The heart is mildly enlarged noting atherosclerotic calc ification of the thoracic aorta. Chronic interstitial thickening is similar to previous. There is bib asilar scarring/atelectasis. No airspace consolidation or large pleural effusion is identified. No pn eumothorax is seen. The skeletal structures are osteopenic. The bony thorax is grossly intact. Arthri tic change is noted in the shoulders. IMPRESSION: No acute cardiopulmonary abnormality. ACT 112: Negative or not required by law. Electronically signed by: Luis Peña M.D. 03/29/2021 9:47 PM
[2021-03-29 22:16] LABS: Potassium 4.9 mmol/L (3.5-5.1)
[2021-03-29] MEDS: D5W AND 1/2NSS 1,000 ML IV SCH (23:17)
[2021-03-29] MEDS: ACETAMINOPHEN 325 MG TAB PO PRN (23:28)
[2021-03-29] MEDS: amLODIPine BESYLATE 5 MG TAB PO SCH (23:56)
[2021-03-30] MEDS: LEVOTHYROXINE SODIUM 88 MCG TABLET PO SCH (06:17)
[2021-03-30 06:33] LABS: Mean Corpuscular Hemoglobin 25.4 pg (25-34); Mean Corpuscular Volume 81.9 fL (80-100); RDW Coefficient of Variation 15.5 % (11.5-14.5); RDW Standard Deviation 46.5 fL (36.4-46.3); Red Blood Count 3.54 M/uL (4.2-5.4); White Blood Count 4.55 K/uL (4.8-10.8)
[2021-03-30 07:06] LABS: Mean Platelet Volume 10.3 fL (7.4-10.4); Platelet Count 84 K/uL (130-400); Platelet Estimate Decreased (Normal)
[2021-03-30 07:07] LABS: Albumin Level 3.5 gm/dl (3.4-5.0); BUN Creatinine Ratio 21.5 (10-20); Calcium 9.7 mg/dl (8.5-10.1); Est GFR (African American) 82.2 ml/min; Est GFR (Non-African American) 70.9 ml/min; Magnesium 2.1 mg/dl (1.8-2.4); Potassium 5.3 mmol/L (3.5-5.1)
[2021-03-30 07:11] LABS: Albumin Globulin Ratio 1.1 (0.9-2); Bilirubin,Total 3.1 mg/dl (0.2-1); Globulin 3.1 gm/dl (2.5-4.0); Phosphorus 3.6 mg/dl (2.5-4.9); Total Protein 6.6 gm/dl (6.4-8.2)
[2021-03-30 07:15] LABS: Estimated Average Glucose 128 mg/dl; Hemoglobin A1C 6.1 % (4.5-5.6)
--- NOTE | 2021-03-30 07:28 | Communication Note ---
Date of Service: March 30, 2021 Late entry: Amlodipine added to Coreg for BP control while Losartan on hold secondary to hyperkalemia.
[2021-03-30] MEDS: INSULIN ASPART 100 UNITS/ML 3 ML PEN SC SCH ×4 (07:29→20:19)
[2021-03-30] MEDS: FAMOTIDINE 20 MG in SYRINGE 3 ML IV SCH ×2 (07:38→20:25)
[2021-03-30] MEDS: carvediloL 6.25 MG TAB PO SCH ×2 (07:39→20:26)
[2021-03-30] MEDS: ASPIRIN 81 MG ECTAB PO SCH (07:39)
[2021-03-30] MEDS: ATORVASTATIN 20 MG TAB PO SCH (07:39)
[2021-03-30] MEDS: FERROUS SULFATE 325 MG TAB PO SCH ×2 (07:39→07:46)
[2021-03-30] MEDS ORDERED: INSULIN GLARGINE SOLOSTAR 100 UNITS/ML 3 ML PEN SC ONE (09:00)
[2021-03-30] MEDS ORDERED: CLOPIDOGREL BISULFATE 75 MG TAB PO SCH (09:00)
--- NOTE | 2021-03-30 10:34 | History & Physical Report ---
Date of Service March 30, 2021 Assessment & Plan (1) Anemia: This is an 85 y/o female with h/o cirrhosis with G1EV, admitted with acute on chronic anemia and abd pain. Anemia has improved after 1 unit pRBC and she's not had any obvious GIB. Etiology for her presentation is unclear, however her tbili is elevated today raising the question of biliary source such as stone/sludge. She recently had EGD in December for anemia without source of GIB identified. She may have occult GIB from PHG or other source such as the SB or colon. - I discussed pt with her daughter Melany per pt wishes - Recommend US ABD today to evaluate biliary region and pt and daughter are agreeable. - Continue analgesia PRN - Supportive care with IVF - Please monitor and correct electrolytes - Trend H&H, transfuse PRN - Discussed possible endoscopy with pt and daughter; offered EGD however they decline; her daughter would like to proceed with colonoscopy during this admission to evaluate her anemia (rather than as an outpt next month has scheduled). However it was explained to her that she would need to have Plavix held for several days prior to procedure so would aim for later in the week. Her daughter states that she would like to take her mother home as soon as possible so she may not be agreeable to keeping her here for several more days to obtain inpt colonoscopy. As it doesn't appear she is actively bleeding, having an outpt colonoscopy as scheduled next month would seem appropriate depending on their wishes. - For now, would continue to hold Plavix until plans are more defined - Can have a diet after her US ABD - Further recommendations to follow US results Thank you for allowing us to participate in the care of this patient. Please call with any acute changes, questions or concerns. Please see addendum below with additional recommendation from my supervising physician. 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 On admission, labs notable for HGB 6.9 (was 9.9 in Feb), BUN not significantly elevated, no leukocytosis, hyperkalemia noted. She was transfused 1 unit pRBC. CTAP with gallstones but no IHDD. Today HGB 9.0; overnight tbili bumped to 3.1 with normal transaminases; still having some hyperkalemia. She states the pain can migrate along both sides of the abdomen and up into her chest; can be made worse with movement. She tells me she is scheduled for outpt colonoscopy next month however is not sure she will do this. She has chronic wheezing, dyspnea from her COPD; denies chest pain. Denies melena, hematochezia, hematemesis, fever, chills. EGD 12/18/20 for iron deficiency anemia by Dr. Burdick - Grade I esophageal varices. These were without any evidence of active or recent bleeding. - Portal hypertensive gastropathy. - Normal examined duodenum. - No specimens collected. Allergies Allergy/AdvReac Type Severity Reaction Status Date / Time amoxicillin Allergy Unknown . Unverified 03/29/21 11:47 clavulanic acid Allergy Unknown . Unverified 03/29/21 11:47 vitamin E (d-alpha Allergy Unknown . Unverified 03/29/21 11:47 tocopherol) Home Medications Medication Instructions Recorded Confirmed Type Tresiba FlexTouch U-200 60 unit SUBCUT QA 04/10/19 03/29/21 History albuterol sulfate [Ventolin HFA] 2 - 4 puff INHALATION Q4H PRN 04/10/19 03/29/21 History aspirin [Aspirin Low Dose] 81 mg PO QAM 04/10/19 03/29/21 History atorvastatin 20 mg PO QAM 04/10/19 03/29/21 History carvedilol 6.25 mg PO BID 04/10/19 03/29/21 History clopidogrel 75 mg PO QAM 04/10/19 03/29/21 History levothyroxine 88 mcg PO QAM 04/10/19 03/29/21 History losartan 50 mg PO HS 04/10/19 03/29/21 History metformin 1,000 mg PO ACHS 04/10/19 03/29/21 History ferrous sulfate [FeroSul] 325 mg PO DAILY #30 tab 12/21/20 03/29/21 Rx famotidine 40 mg PO HS 03/29/21 03/29/21 History Past Med/Surg History Medical History Anemia Emphysema Epigastric abdominal pain HLD (hyperlipidemia) Shortness of breath Surgical History History of appendectomy History of intravascular stent placement Reported Left subclavian, superior mesenteric artery, L iliac, L fempop bypass - Dr Andrade [facility], [place], [facility] Family History Other Diabetes Hypertension Social History Smoking Status: Former smoker Hx Alcohol Use: No Hx Substance Use: No Preferred Language: Togolese Communication Ability: Effective It Program Engagement Director Required: No Beliefs That Will Affect Care: None Current Living Situation: Alone How many Children do You have: 4 Other Information That Helps Us Care for You: No Feels Safe at Home: Yes Safety Concerns: Feels Safe At This Time Assistive Devices: Denture - Upper, Denture - Lower and Glasses Review of Systems All systems reviewed & are unremarkable except as noted in HPI & below Physical Exam Constitutional: WD/WN, vitals as above Eyes: + anicteric sclerae Respiratory: normal respiratory effort + scattered crackles Cardiovascular: RRR, no murmur, no edema Gastrointestinal (Abdomen): Inspection/Auscultation: abdomen normal to inspection and normal bowel sounds; abdomen not distended Percussion/Palpation: abdomen nontender and no guarding no significant ascites Skin: no rashes, warm and dry no jaundice Psychiatric: A+Ox3, euthymic affect Results & Data ([facility]) Vital Signs (Past 12 Hours) Vital Signs Temp Pulse Pulse Resp BP BP Pulse Ox 03/30/21 09:38 66 03/30/21 07:28 36.9 C 62 18 197/63 H 93 03/30/21 03:45 36.4 C L 66 18 179/61 H 93 03/30/21 01:36 36.5 C 64 20 208/71 H 93 03/30/21 00:54 36.6 C 54 L 18 199/73 H 93 03/30/21 00:35 66 03/29/21 23:54 36.4 C L 55 L 20 183/58 H 94 03/29/21 22:54 36.4 C L 54 L 20 95 03/29/21 22:26 35.8 C L 60 17 180/57 H 96 03/29/21 22:24 35.8 C L 60 18 180/57 H 96 Laboratory Results 03/30/21 03/30/21 03/30/21 Range/Units 07:27 06:09 06:09 WBC (4.8-10.8) K/uL RBC (4.2-5.4) M/uL Hgb (12.0-16.0) g/dL Hct (37-47) % MCV (80-100) fL MCH (25-34) pg MCHC (32-36) g/dL RDW Std Deviation (36.4-46.3) fL RDW Coeff of Daniela (11.5-14.5) % Plt Count (130-400) K/uL MPV (7.4-10.4) fL Immature Gran % (Auto) % Neut % (Auto) % Lymph % (Auto) % [place] % (Auto) % Eos % (Auto) % Baso % (Auto) % Neut # (Auto) (1.4-6.5) K/uL Lymph # (Auto) (1.2-3.4) K/uL [place] # (Auto) (0.11-0.59) K/uL Eos # (Auto) (0-0.5) K/uL Baso # (Auto) (0-0.2) K/uL Immature Gran # (Auto) (0.00-0.02) K/uL Platelet Estimate (Normal) Giant Platelets Hypochromasia Sodium 141 (136-145) mmol/L Potassium 5.3 H (3.5-5.1) mmol/L Chloride 116 H (98-107) mmol/L Carbon Dioxide 19 L (21-32) mmol/L Anion Gap 6.0 (3-11) BUN 16 (7-18) mg/dl Creatinine 0.77 (0.6-1.2) mg/dl Est Cr Clr Drug Dosing 46.0 Est GFR ( Amer) 82.2 ml/min Est GFR (Non-Af Amer) 70.9 ml/min BUN/Creatinine Ratio 21.5 H (10-20) Glucose 70 (70-99) mg/dl POC Glucose 79 (70-99) mg/dl Estimat Average Glucose 128 mg/dl Hemoglobin A1c 6.1 H (4.5-5.6) % Calcium 9.7 (8.5-10.1) mg/dl Phosphorus 3.6 (2.5-4.9) mg/dl Magnesium 2.1 (1.8-2.4) mg/dl Total Bilirubin 3.1 H D (0.2-1) mg/dl AST 17 (15-37) U/L ALT 27 (12-78) U/L Alkaline Phosphatase 80 (45-117) U/L Total Creatine Kinase (26-192) U/L Troponin I (0-0.045) ng/ml Total Protein 6.6 (6.4-8.2) gm/dl Albumin 3.5 (3.4-5.0) gm/dl Globulin 3.1 (2.5-4.0) gm/dl Albumin/Globulin Ratio 1.1 (0.9-2) Lipase (73-393) U/L Urine Color Urine Appearance (Clear) Urine pH (4.5-7.5) Ur Specific [place] (1.000-1.030) Urine Protein (Negative) Urine Glucose (UA) (Negative) Urine Ketones (Negative) Urine Blood (Negative) Urine Nitrite (Negative) Urine Bilirubin (Negative) Urine Urobilinogen (Negative) Ur Leukocyte Esterase (Negative) Urine WBC (Auto) (0-5) /hpf Urine RBC (Auto) (0-4) /hpf U Hyaline Cast (Auto) (0-5) /lpf U Epithel Cells (Auto) (0-5) /lpf Urine Bacteria (Auto) (Negative) COVID-19 Eval Order SARS-CoV-2 (PCR) (Negative) Blood Type Antibody Screen Crossmatch 03/30/21 03/30/21 03/29/21 Range/Units 06:09 04:18 23:57 WBC 4.55 L (4.8-10.8) K/uL RBC 3.54 L (4.2-5.4) M/uL Hgb 9.0 L (12.0-16.0) g/dL Hct 29.0 L (37-47) % MCV 81.9 (80-100) fL MCH 25.4 (25-34) pg MCHC 31.0 L (32-36) g/dL RDW Std Deviation 46.5 H (36.4-46.3) fL RDW Coeff of Daniela 15.5 H (11.5-14.5) % Plt Count 84 L (130-400) K/uL MPV 10.3 (7.4-10.4) fL Immature Gran % (Auto) % Neut % (Auto) % Lymph % (Auto) % Hudson % (Auto) % Eos % (Auto) % Baso % (Auto) % Neut # (Auto) (1.4-6.5) K/uL Lymph # (Auto) (1.2-3.4) K/uL [place] # (Auto) (0.11-0.59) K/uL Eos # (Auto) (0-0.5) K/uL Baso # (Auto) (0-0.2) K/uL Immature Gran # (Auto) (0.00-0.02) K/uL Platelet Estimate Decreased L (Normal) Giant Platelets Hypochromasia Sodium (136-145) mmol/L Potassium (3.5-5.1) mmol/L Chloride (98-107) mmol/L Carbon Dioxide (21-32) mmol/L Anion Gap (3-11) BUN (7-18) mg/dl Creatinine (0.6-1.2) mg/dl Est Cr Clr Drug Dosing Est GFR ( Amer) ml/min Est GFR (Non-Af Amer) ml/min BUN/Creatinine Ratio (10-20) Glucose (70-99) mg/dl POC Glucose 95 105 H (70-99) mg/dl Estimat Average Glucose mg/dl Hemoglobin A1c (4.5-5.6) % Calcium (8.5-10.1) mg/dl Phosphorus (2.5-4.9) mg/dl Magnesium (1.8-2.4) mg/dl Total Bilirubin (0.2-1) mg/dl AST (15-37) U/L ALT (12-78) U/L Alkaline Phosphatase (45-117) U/L Total Creatine Kinase (26-192) U/L Troponin I (0-0.045) ng/ml Total Protein (6.4-8.2) gm/dl Albumin (3.4-5.0) gm/dl Globulin (2.5-4.0) gm/dl Albumin/Globulin Ratio (0.9-2) Lipase (73-393) U/L Urine Color Urine Appearance (Clear) Urine pH (4.5-7.5) Ur Specific [place] (1.000-1.030) Urine Protein (Negative) Urine Glucose (UA) (Negative) Urine Ketones (Negative) Urine Blood (Negative) Urine Nitrite (Negative) Urine Bilirubin (Negative) Urine Urobilinogen (Negative) Ur Leukocyte Esterase (Negative) Urine WBC (Auto) (0-5) /hpf Urine RBC (Auto) (0-4) /hpf U Hyaline Cast (Auto) (0-5) /lpf U Epithel Cells (Auto) (0-5) /lpf Urine Bacteria (Auto) (Negative) COVID-19 Eval Order SARS-CoV-2 (PCR) (Negative) Blood Type Antibody Screen Crossmatch 03/29/21 03/29/21 03/29/21 Range/Units 23:27 22:45 22:41 WBC (4.8-10.8) K/uL RBC (4.2-5.4) M/uL Hgb (12.0-16.0) g/dL Hct (37-47) % MCV (80-100) fL MCH (25-34) pg MCHC (32-36) g/dL RDW Std Deviation (36.4-46.3) fL RDW Coeff of Daniela (11.5-14.5) % Plt Count (130-400) K/uL MPV (7.4-10.4) fL Immature Gran % (Auto) % Neut % (Auto) % Lymph % (Auto) % [place] % (Auto) % Eos % (Auto) % Baso % (Auto) % Neut # (Auto) (1.4-6.5) K/uL Lymph # (Auto) (1.2-3.4) K/uL [place] # (Auto) (0.11-0.59) K/uL Eos # (Auto) (0-0.5) K/uL Baso # (Auto) (0-0.2) K/uL Immature Gran # (Auto) (0.00-0.02) K/uL Platelet Estimate (Normal) Giant Platelets Hypochromasia Sodium (136-145) mmol/L Potassium (3.5-5.1) mmol/L Chloride (98-107) mmol/L Carbon Dioxide (21-32) mmol/L Anion Gap (3-11) BUN (7-18) mg/dl Creatinine (0.6-1.2) mg/dl Est Cr Clr Drug Dosing Est GFR ( Amer) ml/min Est GFR (Non-Af Amer) ml/min BUN/Creatinine Ratio (10-20) Glucose (70-99) mg/dl POC Glucose 125 H 61 L* 65 L* (70-99) mg/dl Estimat Average Glucose mg/dl Hemoglobin A1c (4.5-5.6) % Calcium (8.5-10.1) mg/dl Phosphorus (2.5-4.9) mg/dl Magnesium (1.8-2.4) mg/dl Total Bilirubin (0.2-1) mg/dl AST (15-37) U/L ALT (12-78) U/L Alkaline Phosphatase (45-117) U/L Total Creatine Kinase (26-192) U/L Troponin I (0-0.045) ng/ml Total Protein (6.4-8.2) gm/dl Albumin (3.4-5.0) gm/dl Globulin (2.5-4.0) gm/dl Albumin/Globulin Ratio (0.9-2) Lipase (73-393) U/L Urine Color Urine Appearance (Clear) Urine pH (4.5-7.5) Ur Specific [place] (1.000-1.030) Urine Protein (Negative) Urine Glucose (UA) (Negative) Urine Ketones (Negative) Urine Blood (Negative) Urine Nitrite (Negative) Urine Bilirubin (Negative) Urine Urobilinogen (Negative) Ur Leukocyte Esterase (Negative) Urine WBC (Auto) (0-5) /hpf Urine RBC (Auto) (0-4) /hpf U Hyaline Cast (Auto) (0-5) /lpf U Epithel Cells (Auto) (0-5) /lpf Urine Bacteria (Auto) (Negative) COVID-19 Eval Order SARS-CoV-2 (PCR) (Negative) Blood Type Antibody Screen Crossmatch 03/29/21 03/29/21 03/29/21 Range/Units 20:27 20:03 20:02 WBC (4.8-10.8) K/uL RBC (4.2-5.4) M/uL Hgb (12.0-16.0) g/dL Hct (37-47) % MCV (80-100) fL MCH (25-34) pg MCHC (32-36) g/dL RDW Std Deviation (36.4-46.3) fL RDW Coeff of Daniela (11.5-14.5) % Plt Count (130-400) K/uL MPV (7.4-10.4) fL Immature Gran % (Auto) % Neut % (Auto) % Lymph % (Auto) % [place] % (Auto) % Eos % (Auto) % Baso % (Auto) % Neut # (Auto) (1.4-6.5) K/uL Lymph # (Auto) (1.2-3.4) K/uL [place] # (Auto) (0.11-0.59) K/uL Eos # (Auto) (0-0.5) K/uL Baso # (Auto) (0-0.2) K/uL Immature Gran # (Auto) (0.00-0.02) K/uL Platelet Estimate (Normal) Giant Platelets Hypochromasia Sodium (136-145) mmol/L Potassium (3.5-5.1) mmol/L Chloride (98-107) mmol/L Carbon Dioxide (21-32) mmol/L Anion Gap (3-11) BUN (7-18) mg/dl Creatinine (0.6-1.2) mg/dl Est Cr Clr Drug Dosing Est GFR ( Amer) ml/min Est GFR (Non-Af Amer) ml/min BUN/Creatinine Ratio (10-20) Glucose (70-99) mg/dl POC Glucose 93 61 L* (70-99) mg/dl Estimat Average Glucose mg/dl Hemoglobin A1c (4.5-5.6) % Calcium (8.5-10.1) mg/dl Phosphorus (2.5-4.9) mg/dl Magnesium (1.8-2.4) mg/dl Total Bilirubin (0.2-1) mg/dl AST (15-37) U/L ALT (12-78) U/L Alkaline Phosphatase (45-117) U/L Total Creatine Kinase 39 (26-192) U/L Troponin I (0-0.045) ng/ml Total Protein (6.4-8.2) gm/dl Albumin (3.4-5.0) gm/dl Globulin (2.5-4.0) gm/dl Albumin/Globulin Ratio (0.9-2) Lipase (73-393) U/L Urine Color Urine Appearance (Clear) Urine pH (4.5-7.5) Ur Specific [place] (1.000-1.030) Urine Protein (Negative) Urine Glucose (UA) (Negative) Urine Ketones (Negative) Urine Blood (Negative) Urine Nitrite (Negative) Urine Bilirubin (Negative) Urine Urobilinogen (Negative) Ur Leukocyte Esterase (Negative) Urine WBC (Auto) (0-5) /hpf Urine RBC (Auto) (0-4) /hpf U Hyaline Cast (Auto) (0-5) /lpf U Epithel Cells (Auto) (0-5) /lpf Urine Bacteria (Auto) (Negative) COVID-19 Eval Order SARS-CoV-2 (PCR) (Negative) Blood Type Antibody Screen Crossmatch 03/29/21 03/29/21 03/29/21 Range/Units 20:02 20:02 20:01 WBC (4.8-10.8) K/uL RBC (4.2-5.4) M/uL Hgb 7.1 L (12.0-16.0) g/dL Hct (37-47) % MCV (80-100) fL MCH (25-34) pg MCHC (32-36) g/dL RDW Std Deviation (36.4-46.3) fL RDW Coeff of Daniela (11.5-14.5) % Plt Count (130-400) K/uL MPV (7.4-10.4) fL Immature Gran % (Auto) % Neut % (Auto) % Lymph % (Auto) % [place] % (Auto) % Eos % (Auto) % Baso % (Auto) % Neut # (Auto) (1.4-6.5) K/uL Lymph # (Auto) (1.2-3.4) K/uL [place] # (Auto) (0.11-0.59) K/uL Eos # (Auto) (0-0.5) K/uL Baso # (Auto) (0-0.2) K/uL Immature Gran # (Auto) (0.00-0.02) K/uL Platelet Estimate (Normal) Giant Platelets Hypochromasia Sodium 142 (136-145) mmol/L Potassium 4.9 D (3.5-5.1) mmol/L Chloride 116 H (98-107) mmol/L Carbon Dioxide 21 (21-32) mmol/L Anion Gap 5.0 (3-11) BUN 19 H (7-18) mg/dl Creatinine 0.86 (0.6-1.2) mg/dl Est Cr Clr Drug Dosing 41.9 Est GFR ( Amer) 71.9 ml/min Est GFR (Non-Af Amer) 62.0 ml/min BUN/Creatinine Ratio 22.0 H (10-20) Glucose 51 L* (70-99) mg/dl POC Glucose 59 L* (70-99) mg/dl Estimat Average Glucose mg/dl Hemoglobin A1c (4.5-5.6) % Calcium 9.6 (8.5-10.1) mg/dl Phosphorus (2.5-4.9) mg/dl Magnesium (1.8-2.4) mg/dl Total Bilirubin (0.2-1) mg/dl AST (15-37) U/L ALT (12-78) U/L Alkaline Phosphatase (45-117) U/L Total Creatine Kinase (26-192) U/L Troponin I (0-0.045) ng/ml Total Protein (6.4-8.2) gm/dl Albumin (3.4-5.0) gm/dl Globulin (2.5-4.0) gm/dl Albumin/Globulin Ratio (0.9-2) Lipase (73-393) U/L Urine Color Urine Appearance (Clear) Urine pH (4.5-7.5) Ur Specific [place] (1.000-1.030) Urine Protein (Negative) Urine Glucose (UA) (Negative) Urine Ketones (Negative) Urine Blood (Negative) Urine Nitrite (Negative) Urine Bilirubin (Negative) Urine Urobilinogen (Negative) Ur Leukocyte Esterase (Negative) Urine WBC (Auto) (0-5) /hpf Urine RBC (Auto) (0-4) /hpf U Hyaline Cast (Auto) (0-5) /lpf U Epithel Cells (Auto) (0-5) /lpf Urine Bacteria (Auto) (Negative) COVID-19 Eval Order SARS-CoV-2 (PCR) (Negative) Blood Type Antibody Screen Crossmatch 03/29/21 03/29/21 03/29/21 Range/Units 17:54 17:36 17:21 WBC (4.8-10.8) K/uL RBC (4.2-5.4) M/uL Hgb (12.0-16.0) g/dL Hct (37-47) % MCV (80-100) fL MCH (25-34) pg MCHC (32-36) g/dL RDW Std Deviation (36.4-46.3) fL RDW Coeff of Daniela (11.5-14.5) % Plt Count (130-400) K/uL MPV (7.4-10.4) fL Immature Gran % (Auto) % Neut % (Auto) % Lymph % (Auto) % [place] % (Auto) % Eos % (Auto) % Baso % (Auto) % Neut # (Auto) (1.4-6.5) K/uL Lymph # (Auto) (1.2-3.4) K/uL [place] # (Auto) (0.11-0.59) K/uL Eos # (Auto) (0-0.5) K/uL Baso # (Auto) (0-0.2) K/uL Immature Gran # (Auto) (0.00-0.02) K/uL Platelet Estimate (Normal) Giant Platelets Hypochromasia Sodium (136-145) mmol/L Potassium (3.5-5.1) mmol/L Chloride (98-107) mmol/L Carbon Dioxide (21-32) mmol/L Anion Gap (3-11) BUN (7-18) mg/dl Creatinine (0.6-1.2) mg/dl Est Cr Clr Drug Dosing Est GFR ( Amer) ml/min Est GFR (Non-Af Amer) ml/min BUN/Creatinine Ratio (10-20) Glucose (70-99) mg/dl POC Glucose 196 H 98 (70-99) mg/dl Estimat Average Glucose mg/dl Hemoglobin A1c (4.5-5.6) % Calcium (8.5-10.1) mg/dl Phosphorus (2.5-4.9) mg/dl Magnesium (1.8-2.4) mg/dl Total Bilirubin (0.2-1) mg/dl AST (15-37) U/L ALT (12-78) U/L Alkaline Phosphatase (45-117) U/L Total Creatine Kinase (26-192) U/L Troponin I (0-0.045) ng/ml Total Protein (6.4-8.2) gm/dl Albumin (3.4-5.0) gm/dl Globulin (2.5-4.0) gm/dl Albumin/Globulin Ratio (0.9-2) Lipase (73-393) U/L Urine Color Yellow Urine Appearance Clear (Clear) Urine pH 6.5 (4.5-7.5) Ur Specific [place] 1.015 (1.000-1.030) Urine Protein 1+ H (Negative) Urine Glucose (UA) Negative (Negative) Urine Ketones Negative (Negative) Urine Blood Negative (Negative) Urine Nitrite Negative (Negative) Urine Bilirubin Negative (Negative) Urine Urobilinogen Negative (Negative) Ur Leukocyte Esterase 2+ H (Negative) Urine WBC (Auto) >30 H (0-5) /hpf Urine RBC (Auto) 10-30 H (0-4) /hpf U Hyaline Cast (Auto) 1-5 (0-5) /lpf U Epithel Cells (Auto) >30 H (0-5) /lpf Urine Bacteria (Auto) 4+ H (Negative) COVID-19 Eval Order SARS-CoV-2 (PCR) (Negative) Blood Type Antibody Screen Crossmatch 03/29/21 03/29/21 03/29/21 Range/Units 17:03 14:40 14:40 WBC (4.8-10.8) K/uL RBC (4.2-5.4) M/uL Hgb (12.0-16.0) g/dL Hct (37-47) % MCV (80-100) fL MCH (25-34) pg MCHC (32-36) g/dL RDW Std Deviation (36.4-46.3) fL RDW Coeff of Daniela (11.5-14.5) % Plt Count (130-400) K/uL MPV (7.4-10.4) fL Immature Gran % (Auto) % Neut % (Auto) % Lymph % (Auto) % [place] % (Auto) % Eos % (Auto) % Baso % (Auto) % Neut # (Auto) (1.4-6.5) K/uL Lymph # (Auto) (1.2-3.4) K/uL [place] # (Auto) (0.11-0.59) K/uL Eos # (Auto) (0-0.5) K/uL Baso # (Auto) (0-0.2) K/uL Immature Gran # (Auto) (0.00-0.02) K/uL Platelet Estimate (Normal) Giant Platelets Hypochromasia Sodium (136-145) mmol/L Potassium (3.5-5.1) mmol/L Chloride (98-107) mmol/L Carbon Dioxide (21-32) mmol/L Anion Gap (3-11) BUN (7-18) mg/dl Creatinine (0.6-1.2) mg/dl Est Cr Clr Drug Dosing Est GFR ( Amer) ml/min Est GFR (Non-Af Amer) ml/min BUN/Creatinine Ratio (10-20) Glucose (70-99) mg/dl POC Glucose 60 L* (70-99) mg/dl Estimat Average Glucose mg/dl Hemoglobin A1c (4.5-5.6) % Calcium (8.5-10.1) mg/dl Phosphorus (2.5-4.9) mg/dl Magnesium (1.8-2.4) mg/dl Total Bilirubin (0.2-1) mg/dl AST (15-37) U/L ALT (12-78) U/L Alkaline Phosphatase (45-117) U/L Total Creatine Kinase (26-192) U/L Troponin I (0-0.045) ng/ml Total Protein (6.4-8.2) gm/dl Albumin (3.4-5.0) gm/dl Globulin (2.5-4.0) gm/dl Albumin/Globulin Ratio (0.9-2) Lipase (73-393) U/L Urine Color Urine Appearance (Clear) Urine pH (4.5-7.5) Ur Specific [place] (1.000-1.030) Urine Protein (Negative) Urine Glucose (UA) (Negative) Urine Ketones (Negative) Urine Blood (Negative) Urine Nitrite (Negative) Urine Bilirubin (Negative) Urine Urobilinogen (Negative) Ur Leukocyte Esterase (Negative) Urine WBC (Auto) (0-5) /hpf Urine RBC (Auto) (0-4) /hpf U Hyaline Cast (Auto) (0-5) /lpf U Epithel Cells (Auto) (0-5) /lpf Urine Bacteria (Auto) (Negative) COVID-19 Eval Order Covid19 at [facility] SARS-CoV-2 (PCR) NEGATIVE (Negative) Blood Type Antibody Screen Crossmatch 03/29/21 03/29/21 03/29/21 Range/Units 12:51 11:25 11:25 WBC 4.25 L (4.8-10.8) K/uL RBC 2.82 L (4.2-5.4) M/uL Hgb 6.9 L* (12.0-16.0) g/dL Hct 23.4 L (37-47) % MCV 83.0 (80-100) fL MCH 24.5 L (25-34) pg MCHC 29.5 L (32-36) g/dL RDW Std Deviation 50.6 H (36.4-46.3) fL RDW Coeff of Daniela 16.4 H (11.5-14.5) % Plt Count 102 L (130-400) K/uL MPV 10.8 H (7.4-10.4) fL Immature Gran % (Auto) 0.0 % Neut % (Auto) 55.6 % Lymph % (Auto) 31.3 % [place] % (Auto) 10.1 % Eos % (Auto) 2.8 % Baso % (Auto) 0.2 % Neut # (Auto) 2.36 (1.4-6.5) K/uL Lymph # (Auto) 1.33 (1.2-3.4) K/uL [place] # (Auto) 0.43 (0.11-0.59) K/uL Eos # (Auto) 0.12 (0-0.5) K/uL Baso # (Auto) 0.01 (0-0.2) K/uL Immature Gran # (Auto) 0.00 (0.00-0.02) K/uL Platelet Estimate (Normal) Giant Platelets 1+ Hypochromasia Present Sodium 141 (136-145) mmol/L Potassium 6.0 H (3.5-5.1) mmol/L Chloride 117 H (98-107) mmol/L Carbon Dioxide 18 L (21-32) mmol/L Anion Gap 6.0 (3-11) BUN 20 H (7-18) mg/dl Creatinine 0.95 (0.6-1.2) mg/dl Est Cr Clr Drug Dosing Not Reportable Est GFR ( Amer) 63.7 ml/min Est GFR (Non-Af Amer) 55.0 ml/min BUN/Creatinine Ratio 21.0 H (10-20) Glucose 95 (70-99) mg/dl POC Glucose (70-99) mg/dl Estimat Average Glucose mg/dl Hemoglobin A1c (4.5-5.6) % Calcium 9.3 (8.5-10.1) mg/dl Phosphorus (2.5-4.9) mg/dl Magnesium (1.8-2.4) mg/dl Total Bilirubin 0.7 (0.2-1) mg/dl AST 17 (15-37) U/L ALT 30 (12-78) U/L Alkaline Phosphatase 81 (45-117) U/L Total Creatine Kinase (26-192) U/L Troponin I < 0.015 (0-0.045) ng/ml Total Protein 6.8 (6.4-8.2) gm/dl Albumin 3.6 (3.4-5.0) gm/dl Globulin 3.2 (2.5-4.0) gm/dl Albumin/Globulin Ratio 1.1 (0.9-2) Lipase 182 (73-393) U/L Urine Color Urine Appearance (Clear) Urine pH (4.5-7.5) Ur Specific [place] (1.000-1.030) Urine Protein (Negative) Urine Glucose (UA) (Negative) Urine Ketones (Negative) Urine Blood (Negative) Urine Nitrite (Negative) Urine Bilirubin (Negative) Urine Urobilinogen (Negative) Ur Leukocyte Esterase (Negative) Urine WBC (Auto) (0-5) /hpf Urine RBC (Auto) (0-4) /hpf U Hyaline Cast (Auto) (0-5) /lpf U Epithel Cells (Auto) (0-5) /lpf Urine Bacteria (Auto) (Negative) COVID-19 Eval Order SARS-CoV-2 (PCR) (Negative) Blood Type B Positive Antibody Screen NEGATIVE Crossmatch See Detail Diagnostic Findings CTAP: 1. Cirrhotic liver morphology. 2. Trace abdominopelvic ascites suggest portal hypertension. 3. The gallbladder is mildly distended with numerous calcified gallstones. Although there are gallstones in the region of the gallbladder neck, there is no clear CT evidence of acute cholecystitis. If there is clinical concern for acute cholecystitis a right upper quadrant ultrasound should be considered. 4. Colonic diverticulosis without CT evidence of acute diverticulitis. 5. There is a 3.7 x 3.9 cm infrarenal abdominal aortic aneurysm. 6. Additional findings as above. CXR: IMPRESSION: No acute cardiopulmonary abnormality. Supervising Physician Co-Signing Physician Notes I have seen and examined the patient and discussed the management with Yoana Borrego PA-C. 85 yo with pertinent gi history of being on aspirin and plavix, cirrhosis (thought to be from [place]) with g1ev and phg per last egd done 3 months ago in 12/27. Admitted with abdominal pain- vague in description, ct a/p showing gallstones, labs sig for bili rise, also noted to be anemic without evidence of active gi bleeding and normal bun. PE - alert and oriented elderly fm in nad, no scleral icterus, no palpable ascites or localized ttp in her abdomen Labs reviewed sig for anemia that has improved after 1 unit of prbc, no bun rise, tb elevation with normal lft's CT a/p reviewed during this admission Last egd from 12/27 reviewed Cirrhotic with higher meld currently given bili rise, no ascites on exam or imaging- given gallstones, would obtain abd [facility] Offered egd for further evaluation of anemia though suspect it would be low yield given on reports of active gi bleeding or bun rise- family declined (patient asked we speak with the daughter) would continue with ppi once daily. She has an outpatient appt for a colonoscopy and after discussion with her daughter- this outpt appt will be kept for now which is in a few weeks for further evaluation of anemia. Would empirically hold plavix today. (1) Anemia Anemia type: unspecified type Qualified Code(s): D64.9 - Anemia, unspecified (2) Abdominal pain Abdominal location: generalized Qualified Code(s): R10.84 - Generalized abdominal pain
--- NOTE | 2021-03-30 13:55 | Hospitalist Progress Note ---
Date of Service March 30, 2021 Assessment & Plan (1) Abdominal pain: Present on admission with abdominal tenderness radiated to her back CT abd/pelvis showed gallbladder is mildly distended with numerous calcified gallstones with no clear CT evidence of acute cholecystitis. Colonic diverticu losis without CT evidence of acute diverticulitis. gastro on board Recommended to get an u/s due to elevated bilirubin U/S showed cholelithiasis. Distended gallbladder. Trace pericholecystic fluid. Suboptimal visualization of the common bile duct which measures 7 mm. If there is clinical concern over the presence of a common bile duct calculus U/S finding discussed with patient and daughter at bedside Starting on clear liquid diet Will get an MRCP Unfortunately pt said that she cannot get an MRI because she had stitches in her mouth by Dr. Malone 30 yrs ago and stents placed [address] Henao. Pt said that Dr. Malone and Dr. Henao told her that she could not get an MRI. Daughter will look for the card that radiology can check if compatible to proceed with the MRI Continue monitor closely (2) Anemia: Hemoglobin on admission 6.9 S/P 1 unit PRBC on 03/29/21 Repeat hgb 9 today denies any bloody stool Last EGD on 12/27 showed Grade I esophageal varices. These were without any evidence of active or recent bleeding. Gastro offered to repeat EGD on this admission, but daughter declined Continue PPI daily GI recommended to hold plavix today Family would like pt to get a colonoscopy during this admission, will defer to GI Pt has a colonoscopy schedule outpatient for next month Continue monitor CBC (3) UTI (urinary tract infection): Urine cx grew gram negative bacilli Will start on Azactam since pt is allergy with amoxicillin (Son said that he does not know what was the allergy with the amoxicillin ) (4) HLD (hyperlipidemia): Continue atorvastatin 20 mg daily (5) PAD (peripheral artery disease): (6) History of intravascular stent placement: Hx of multiple stents (Left subclavian, SMA, left iliac L fempop bypass) by Dr. Pringle with [facility] GI suggested to hold plavix for today for possible colonoscopy during this admission Continue carvedilol 6.25 mg BID and aspirin for now (7) Hyperkalemia: Elevated at 6.0 on admission EKG on admission showed T wave changes compared to December. Received D50, calcium and insulin now on admission K 5.2 today Continue monitor BMP (8) COPD (chronic obstructive pulmonary disease): continue nebulizer (9) Graves disease: Continue levothyroid 88 mcg daily (10) DM II (diabetes mellitus, type II), controlled: Continue to holding metformin No longer on Januvia as outpatient Continue insulin sliding scale and Glargine DVT ppx SCD due to low hgb on admission CODE: Full code Disposition Will discharge once medically stable Admission and Anticipated Discharge Date Admission Date: March 29, 2021 Subjective Pt was seen and examined for follow up appointment for abdominal pain and low hemoglobin Lying in bed with no distress. Pt said that she is hungry She said that she continues to have some abdominal tenderness and back pain GI spoke to daughter over the phone and updated her Spoke to son as well over the phone and provided with updates Denies any chest pain, palpitation, dizziness and SOB Review of Systems Review of Systems: All systems reviewed & are unremarkable except as noted in Subjective Physical Exam Physical Exam: General- No acute distress Head- atraumatic Eyes- PERRL, EOMI, ENT- oropharynx clear Neck- supple, no JVD Lungs- clear to auscultation Heart- regular rhythm; no murmur Abdomen- normal bowel sounds, +tenderness Extremities- no calf tenderness Neuro- alert, oriented x 3; PERRL, EOMI; no facial palsy; no dysarthria Skin- warm & dry Results & Data Results & Data ([facility]) Vital Signs (Past 12 Hours) Vital Signs Temp Pulse Pulse Resp BP Pulse Ox 03/30/21 11:44 36.8 C 70 18 161/66 H 96 03/30/21 09:38 66 03/30/21 07:28 36.9 C 62 18 197/63 H 93 03/30/21 03:45 36.4 C L 66 18 179/61 H 93 (1) Anemia Anemia type: unspecified type Qualified Code(s): D64.9 - Anemia, unspecified (2) Abdominal pain Abdominal location: generalized Qualified Code(s): R10.84 - Generalized abdominal pain
--- NOTE | 2021-03-30 14:42 | Ultrasound Report ---
BILIARY ULTRASOUND CLINICAL HISTORY: elevated bilirubin, ? CBD stone COMPARISON STUDY: CT scan dated 03/29/2021, gallbladder ultrasound dated 12/16/2020 FINDINGS: The liver is heterogeneous in appearance with a nodular serosal surface suspicious for cirrhosis. The re is trace perihepatic ascites. No focal hepatic masses are visualized. The pancreas appears sonographically normal. There are multiple gallstones. There is trace pericholecystic fluid. The gallbladder is distended. Only a small portion of the common bile duct was visualized. This measured 7 mm. If there is clinical concern over the presence of a common bile duct calculus, an MRCP would be consi dered the noninvasive test of choice. IMPRESSION: 1. Cholelithiasis. Distended gallbladder. Trace pericholecystic fluid. 2. Suboptimal visualization of the common bile duct which measures 7 mm. If there is clinical concern over the presence of a common bile duct calculus, an MRCP could be obtained in follow-up 3. Cirrhotic liver morphology. Trace perihepatic fluid. ACT 112: Negative or not required by law. Electronically signed by: Rich Julien M.D. 03/30/2021 2:41 PM
[2021-03-30] MEDS: LIDOCAINE 5% 1 PATCH TD SCH (16:30)
[2021-03-30] MEDS: AZTREONAM 1,000 MG in DEXTROSE 5% 100 ML IV SCH (19:28)
[2021-03-30] MEDS: amLODIPine BESYLATE 5 MG TAB PO SCH (20:26)
[2021-03-31] MEDS: D5W AND 1/2NSS 1,000 ML IV SCH (00:01)
[2021-03-31] MEDS: AZTREONAM 1,000 MG in DEXTROSE 5% 100 ML IV SCH ×2 (02:09→11:48)
[2021-03-31] MEDS: LEVOTHYROXINE SODIUM 88 MCG TABLET PO SCH (06:17)
[2021-03-31 06:42] LABS: Hematocrit (blood only) 29.4 % (37-47); Hemoglobin 9.2 g/dL (12.0-16.0); Mean Corpuscular Hemoglobin 25.5 pg (25-34); Mean Corpuscular Hgb Conc 31.3 g/dL (32-36); Mean Corpuscular Volume 81.4 fL (80-100); RDW Standard Deviation 47.6 fL (36.4-46.3); Red Blood Count 3.61 M/uL (4.2-5.4); White Blood Count 5.01 K/uL (4.8-10.8)
[2021-03-31 06:43] LABS: Mean Platelet Volume 10.7 fL (7.4-10.4); Platelet Count 98 K/uL (130-400)
[2021-03-31 07:15] LABS: Albumin Level 3.4 gm/dl (3.4-5.0); BUN Creatinine Ratio 16.4 (10-20); Calcium 9.8 mg/dl (8.5-10.1); Creatinine Clr Calc Pharmacy 38.5 ml/min; Est GFR (African American) 67.1 ml/min; Est GFR (Non-African American) 57.9 ml/min; Potassium 4.7 mmol/L (3.5-5.1)
[2021-03-31 07:19] LABS: Bilirubin,Total 1.5 mg/dl (0.2-1); Globulin 3.4 gm/dl (2.5-4.0); Total Protein 6.8 gm/dl (6.4-8.2)
[2021-03-31] MEDS: ATORVASTATIN 20 MG TAB PO SCH (07:50)
[2021-03-31] MEDS: carvediloL 6.25 MG TAB PO SCH (07:50)
[2021-03-31] MEDS: FERROUS SULFATE 325 MG TAB PO SCH (07:50)
[2021-03-31] MEDS: ASPIRIN 81 MG ECTAB PO SCH (07:50)
[2021-03-31] MEDS: LIDOCAINE 5% 1 PATCH TD SCH (07:51)
[2021-03-31] MEDS: FAMOTIDINE 20 MG in SYRINGE 3 ML IV SCH (07:59)
[2021-03-31] MEDS ORDERED: INSULIN GLARGINE SOLOSTAR 100 UNITS/ML 3 ML PEN SC SCH (09:00)
--- NOTE | 2021-03-31 09:14 | Gastroenterology Progress Note ---
Date of Service March 31, 2021 Assessment & Plan (1) Anemia: This is an 85 y/o female with h/o cirrhosis with G1EV, admitted with acute on chronic anemia and abd pain. Anemia has improved after 1 unit pRBC. She had a bump in her tbili and there was concern for biliary source such as stone/slu dge. US ABd yest = cholelithiasis and distended gallbladder, no significant ascites, suboptimal visualization of the CBD measuring at 7 mm. MRCP was ordered however, patient informed us that she was told she was not to have an MRI due to placement of stents and stitches in the past. Today, bilirubin has improved to 1.5, and she seems to be having moreso low back discomfort than abd discomfort. She's not had any overt GIB and HGB remains stable; abd is soft. - She recently had EGD in December for anemia without source of GIB identified. She may have had occult GIB from PHG or other source such as the SB or colon - Pt is scheduled for outpt colonoscopy next month for h/o anemia. This would be reasonable to keep this appt unless she would have worsening of anemia or obvious GIB. - Would continue to monitor HGB and GI output - With regard to her h/o abd pain and elevated bilirubin, ideally would obtain MRCP however it seems this may not be possible. Could consider EUS if bilirubin rises again or pain worsens. She only had trace ascites on imaging and unlikely to have SBP. Elevated bilirubin may be related to underlying cirrhosis. Thank you for allowing us to participate in the care of this patient. Please call with any acute changes, questions or concerns. Please see addendum below with additional recommendation from my supervising physician. (2) Abdominal pain: Admission and Anticipated Discharge Date Admission Date: March 29, 2021 Supervising Physician Co-Signing Physician Notes No acute changes from yesterday- declined mrcp as abd alix was suboptimal. PE unchanged. hgb remains stable without overt signs of gi bleeding. consider fractionating bilirubin. MRCP if agreeable for further workup, consider blood cultures as well as tbili could be high from infection. Despite gallstones and distended gallbladder on imaging, lft's remains normal. On pepcid and aztreonam Agree with futher plan of care as below. Subjective Patient seen and examined, chart reviewed. She is feeling about the same today; no acute events overnight. MRCP was ordered yesterday for elevated bilirubin, however, this was not done as patient informed staff that when she had intervascular stents placed and also oral stitches some years ago, she was not to have an MRI in the future. She states abdominal pain tends to come and go and more so has some back pain with laying in the hospital bed. Bilirubin has improved to 1.5, HGB stable at 9.2. She had a formed brown BM this AM. Denies nausea vomiting, hematemesis, melena or hematochezia, fevers or chills. Review of Systems Review of Systems: All systems reviewed & are unremarkable except as noted in HPI & below Physical Exam Constitutional: WD/WN, vitals as above Eyes: + anicteric sclerae Respiratory: normal respiratory effort Cardiovascular: RRR, no murmur, no edema Gastrointestinal (Abdomen): Inspection/Auscultation: abdomen normal to inspection and normal bowel sounds; abdomen not distended Percussion/Palpation: abdomen soft; abdomen nontender and no guarding Skin: no rashes, warm and dry no jaundice Psychiatric: A+Ox3, euthymic affect Results & Data ([facility]) Vital Signs (Past 12 Hours) Vital Signs Temp Pulse Pulse Resp BP Pulse Ox 03/31/21 07:07 36.4 C L 60 18 170/60 H 96 03/31/21 03:00 36.8 C 62 18 178/48 H 94 03/30/21 23:45 56 L 03/30/21 22:47 36.5 C 56 L 19 151/81 H 95 Laboratory Results 03/31/21 03/31/21 03/31/21 Range/Units 07:36 06:04 06:04 WBC 5.01 (4.8-10.8) K/uL RBC 3.61 L (4.2-5.4) M/uL Hgb 9.2 L (12.0-16.0) g/dL Hct 29.4 L (37-47) % MCV 81.4 (80-100) fL MCH 25.5 (25-34) pg MCHC 31.3 L (32-36) g/dL RDW Std Deviation 47.6 H (36.4-46.3) fL RDW Coeff of Daniela 16.0 H (11.5-14.5) % Plt Count 98 L (130-400) K/uL MPV 10.7 H (7.4-10.4) fL Sodium 140 (136-145) mmol/L Potassium 4.7 (3.5-5.1) mmol/L Chloride 113 H (98-107) mmol/L Carbon Dioxide 22 (21-32) mmol/L Anion Gap 5.0 (3-11) BUN 15 (7-18) mg/dl Creatinine 0.91 (0.6-1.2) mg/dl Est Cr Clr Drug Dosing 38.5 ml/min Est GFR ( Amer) 67.1 ml/min Est GFR (Non-Af Amer) 57.9 ml/min BUN/Creatinine Ratio 16.4 (10-20) Glucose 89 (70-99) mg/dl POC Glucose 105 H (70-99) mg/dl Calcium 9.8 (8.5-10.1) mg/dl Total Bilirubin 1.5 H D (0.2-1) mg/dl AST 20 (15-37) U/L ALT 26 (12-78) U/L Alkaline Phosphatase 77 (45-117) U/L Total Protein 6.8 (6.4-8.2) gm/dl Albumin 3.4 (3.4-5.0) gm/dl Globulin 3.4 (2.5-4.0) gm/dl Albumin/Globulin Ratio 1.0 (0.9-2) 03/30/21 03/30/21 03/30/21 Range/Units 20:04 16:32 11:22 WBC (4.8-10.8) K/uL RBC (4.2-5.4) M/uL Hgb (12.0-16.0) g/dL Hct (37-47) % MCV (80-100) fL MCH (25-34) pg MCHC (32-36) g/dL RDW Std Deviation (36.4-46.3) fL RDW Coeff of Daniela (11.5-14.5) % Plt Count (130-400) K/uL MPV (7.4-10.4) fL Sodium (136-145) mmol/L Potassium (3.5-5.1) mmol/L Chloride (98-107) mmol/L Carbon Dioxide (21-32) mmol/L Anion Gap (3-11) BUN (7-18) mg/dl Creatinine (0.6-1.2) mg/dl Est Cr Clr Drug Dosing ml/min Est GFR ( Amer) ml/min Est GFR (Non-Af Amer) ml/min BUN/Creatinine Ratio (10-20) Glucose (70-99) mg/dl POC Glucose 161 H 287 H 80 (70-99) mg/dl Calcium (8.5-10.1) mg/dl Total Bilirubin (0.2-1) mg/dl AST (15-37) U/L ALT (12-78) U/L Alkaline Phosphatase (45-117) U/L Total Protein (6.4-8.2) gm/dl Albumin (3.4-5.0) gm/dl Globulin (2.5-4.0) gm/dl Albumin/Globulin Ratio (0.9-2) Diagnostic Findings US ABD: 1. Cholelithiasis. Distended gallbladder. Trace pericholecystic fluid. 2. Suboptimal visualization of the common bile duct which measures 7 mm. If there is clinical concern over the presence of a common bile duct calculus, an MRCP could be obtained in follow-up 3. Cirrhotic liver morphology. Trace perihepatic fluid. (1) Anemia Anemia type: unspecified type Qualified Code(s): D64.9 - Anemia, unspecified (2) Abdominal pain Abdominal location: generalized Qualified Code(s): R10.84 - Generalized abdominal pain
[2021-03-31 12:35] LABS: Bilirubin Direct 0.2 mg/dl (0-0.2)
[2021-03-31] MEDS ORDERED: amLODIPine BESYLATE 5 MG TAB PO ONE (12:40)
[2021-03-31] MEDS ORDERED: LOSARTAN POTASSIUM 50 MG TAB PO SCH (12:45)
[2021-03-31] MEDS ORDERED: cephALEXin 500 MG CAP PO ONE (14:00)
--- NOTE | 2021-03-31 14:26 | Hospitalist Progress Note ---
Date of Service March 31, 2021 Assessment & Plan (1) Abdominal pain: Present on admission with abdominal tenderness radiated to her back Possible biliary colic? Symptoms has completely resolved, no nausea no post prandial discomfort CT abd/pelvis showed gallbladder is mildly distended with numerous calcified gallstones with no clear CT evidence of acute cholecystitis. Colonic diverticulosis without CT evidence of acute diverticulitis. Patient follows with [facility] gastrology for chronic liver disease. Gastroenterology consulted, appreciate input Gallbladder ultrasound: Cholelithiasis. Distended gallbladder. Trace pericholecystic fluid. Suboptimal visualization of the common bile duct which measures 7 mm. If there is clinical concern over the presence of a common bile duct calculus Patient has metallic anderson in her mouth by ENT Not a candidate for MRCP [facility] gastroenterology updated. Patient is ordered diet, plan for outpatient clinic follow-up, Patient may benefit with a possible HIDA scan, GI will discussed the indication for test after clinic visit Stable to be discharged home today (2) Anemia: Chronic iron deficiency anemia, low MCV No evidence of any active GI bleed on admission. No hematemesis or melena Hemoglobin on admission 6.9 S/P 1 unit PRBC on 03/29/21 Last EGD on 12/27 showed Grade I esophageal varices. These were without any evidence of active or recent bleeding. Gastro offered to repeat EGD on this admission, but daughter declined Hemoglobin has been stable posttransfusion, no dark or tarry stool Stable hemodynamically Patient is scheduled for outpatient colonoscopy on 04/27/2021. Daughter updated, and urethral outpatient procedure, (3) UTI (urinary tract infection): Urine culture: Gram-negative bacilli/Proteus Started on p.o. Keflex per sensitivity (4) HLD (hyperlipidemia): Continue atorvastatin 20 mg daily (5) PAD (peripheral artery disease): (6) History of intravascular stent placement: Hx of multiple stents (Left subclavian, SMA, left iliac L fempop bypass) by Dr. Pringle with [facility] Patient is on aspirin and Plavix which is continued (7) Hyperkalemia: Resolved, patient was given insulin and dextrose Losartan kept on hold, Potassium level normalized today, with stable creatinine Losartan resumed on discharge Hypertensive urgency: Possible due to holding home dose of losartan 50 mg daily? Losartan resumed, added Norvasc 5 mg daily, Continue Coreg 6.25 mg twice daily (8) COPD (chronic obstructive pulmonary disease): He has chronically scrotal patient's baseline continue nebulizer (9) Graves disease: Continue levothyroid 88 mcg daily (10) DM II (diabetes mellitus, type II), controlled: Patient had hypoglycemic episodes at home Appreciate input from life educator, Metformin dose reduced to 500 mg twice daily, Tresiba dose reduced to 42 units daily Follow-up with family physician clinic DVT ppx SCD due to low hgb on admission CODE: Full code Disposition Stable to be discharged home today Admission and Anticipated Discharge Date Admission Date: March 29, 2021 Subjective Follow-up visit for abdominal pain, anemia Patient reports feeling fine, does not have any abdominal pain, no nausea, had normal bowel movement today, Fever or chills no shortness of breath Wants to be discharged home today, Review of Systems Review of Systems: All systems reviewed & are unremarkable except as noted in Subjective Physical Exam Physical Exam: Physical exam: General: No acute distress, alert awake oriented x3 HEENT: PERRLA, EOMI, Heart: Regular S1-S2, no carotid bruit, no JVD, no lower extremity edema Lungs: Clear to auscultate, no wheeze or rales Abdomen: Soft nontender, mildly distended Extremity: No cyanosis, no deformity, normal strength 5 out of 5 with upper and lower Neuro: No focal neurological deficit normal speech, normal visual field, Motor strength : normal both upper and lower extremity, sensation intact Psych: Alert awake oriented x3, normal affect Results & Data Results & Data ([facility]) Vital Signs (Past 12 Hours) Vital Signs Temp Pulse Resp BP Pulse Ox 03/31/21 13:39 36.3 C L 58 L 18 171/71 H 96 03/31/21 11:09 36.3 C L 58 L 18 171/71 H 96 03/31/21 07:07 36.4 C L 60 18 170/60 H 96 03/31/21 03:00 36.8 C 62 18 178/48 H 94 (1) Abdominal pain Abdominal location: generalized Qualified Code(s): R10.84 - Generalized abdominal pain (2) Anemia Anemia type: unspecified type Qualified Code(s): D64.9 - Anemia, unspecified
--- NOTE | 2021-03-31 14:28 | Discharge Summary ---
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 On admission, labs notable for HGB 6.9 (was 9.9 in Feb), BUN not significantly elevated, no leukocytosis, hyperkalemia noted. She was transfused 1 unit pRBC. CTAP with gallstones but no IHDD. Today HGB 9.0; overnight tbili bumped to 3.1 with normal transaminases; still having some hyperkalemia. She states the pain can migrate along both sides of the abdomen and up into her chest; can be made worse with movement. She tells me she is scheduled for outpt colonoscopy next month however is not sure she will do this. She has chronic wheezing, dyspnea from her COPD; denies chest pain. Denies melena, hematochezia, hematemesis, fever, chills. EGD 12/18/20 for iron deficiency anemia by Dr. Burdick - Grade I esophageal varices. These were without any evidence of active or recent bleeding. - Portal hypertensive gastropathy. - Normal examined duodenum. - No specimens collected. Principal Diagnosis Urine tract infection: Proteus Type 2 diabetes Abdominal pain Anemia COPD Chronic emphysema Peripheral vascular disease Discharge Exam Constitutional WD/WN, vitals as above Eyes + anicteric sclerae Respiratory normal respiratory effort Cardiovascular RRR, no murmur, no edema Gastrointestinal (Abdomen) Inspection/Auscultation: abdomen normal to inspection and normal bowel sounds; abdomen not distended Percussion/Palpation: abdomen soft; abdomen nontender and no guarding Skin no rashes, warm and dry no jaundice Psychiatric A+Ox3, euthymic affect Discharge Data Allergies Allergy/AdvReac Type Severity Reaction Status Date / Time amoxicillin Allergy Unknown . Unverified 03/29/21 11:47 clavulanic acid Allergy Unknown . Unverified 03/29/21 11:47 vitamin E (d-alpha Allergy Unknown . Unverified 03/29/21 11:47 tocopherol) Consultations 03/29/21 14:12 ED Decision to Admit Stat 03/29/21 19:06 Consult Gastroenterology Routine Ordered Studies 03/29/21 11:58 CT abd pelvis wo con Stat 03/30/21 14:00 US abdomen limited Urgent Hospital Course (1) Abdominal pain: Present on admission with abdominal tenderness radiated to her back Possible biliary colic? Symptoms has completely resolved, no nausea no post prandial discomfort CT abd/pelvis showed gallbladder is mildly distended with numerous calcified gallstones with no clear CT evidence of acute cholecystitis. Colonic diverticulosis without CT evidence of acute diverticulitis. Patient follows with [facility] gastrology for chronic liver disease. Gastroenterology consulted, appreciate input Gallbladder ultrasound: Cholelithiasis. Distended gallbladder. Trace pericholecystic fluid. Suboptimal visualization of the common bile duct which measures 7 mm. If there is clinical concern over the presence of a common bile duct calculus Patient has metallic anderson in her mouth by ENT Not a candidate for MRCP [facility] gastroenterology updated. Patient is ordered diet, plan for outpatient clinic follow-up, Patient may benefit with a possible HIDA scan, GI will discussed the indication for test after clinic visit Stable to be discharged home today (2) Anemia: Patient for acute blood loss anemia, with possible GI bleed No evidence of any active GI bleed on admission. No hematemesis or melena Hemoglobin on admission 6.9 S/P 1 unit PRBC on 03/29/21 Hemoglobin has been stable posttransfusion, no dark or tarry stool Stable hemodynamically Last EGD on 12/27 showed Grade I esophageal varices. These were without any evidence of active or recent bleeding. Gastro offered to repeat EGD on this admission, but daughter declined Patient is scheduled for outpatient colonoscopy on 04/27/2021. Daughter updated, and urethral outpatient procedure, (3) UTI (urinary tract infection): Urine culture: Gram-negative bacilli/Proteus Started on p.o. Keflex per sensitivity (4) HLD (hyperlipidemia): Continue atorvastatin 20 mg daily (5) PAD (peripheral artery disease): (6) History of intravascular stent placement: Hx of multiple stents (Left subclavian, SMA, left iliac L fempop bypass) by Dr. Pringle with [facility] Patient is on aspirin and Plavix which is continued (7) Hyperkalemia: Resolved, patient was given insulin and dextrose Losartan kept on hold, Potassium level normalized today, with stable creatinine Losartan resumed on discharge Hypertensive urgency: Possible due to holding home dose of losartan 50 mg daily? Losartan resumed, added Norvasc 5 mg daily, Continue Coreg 6.25 mg twice daily (8) COPD (chronic obstructive pulmonary disease): He has chronically scrotal patient's baseline continue nebulizer (9) Graves disease: Continue levothyroid 88 mcg daily (10) DM II (diabetes mellitus, type II), controlled: Patient had hypoglycemic episodes at home Appreciate input from cosmetology educator, Metformin dose reduced to 500 mg twice daily, Tresiba dose reduced to 42 units daily Follow-up with family physician clinic DVT ppx SCD due to low hgb on admission CODE: Full code Disposition Stable to be discharged home today Total Time Total Time Spent Total Time Spent (In Minutes): 35 minutes Total Time Includes: Examination of the Patient, Discharge Planning and Medication Reconciliation Discharge Plan Discharge Items Patient Disposition: Home - Self-Care Reason For Visit: AB PAIN, ANEMIA Discharge Diagnosis: Urine tract infection: Proteus Type 2 diabetes Abdominal pain Anemia COPD Chronic emphysema Peripheral vascular disease Activity: Resume your previous activity Non-emergency contact: Primary Care Provider Call non-emergency contact if: you have any medication questions Follow-up/Referrals: Terell Quijano MD [Physician] - (You are scheduled to have a colonoscopy at 9 AM on 04/27/2021 at [facility] endoscopy suite) Guido Valera [Primary Care Provider] - 04/07/21 10:45 am (Please follow up with Dr. Valera on Monday04/07/21 at 10:45 am. Please arrive to the office at 10:30 am for your appointment. If you are unable to keep this appointment, please call the office to reschedule at [phone].) Diet: Carb Consistent or DM2 Addtl Attending Provider Instructions: Please take all medications as instructed on discharge list below. It is recommended that you follow-up with your primary care physician within 1-2 weeks of hospital discharge to ensure you are still doing well. Please call if you have any questions or problems. You can reach a [facility] hospitalist on duty at [facility] 24 hours a day by calling [phone] Addtl Acid Purifier Provider Instructions: Your blood sugar has been persistently low, Metformin dose reduced to 500 mg 1 tablet twice daily Tresiba dose reduced to 42 Units Please call your family doctor if your blood sugar remains below 100 Antibiotic: Keflex 500 mg 1 capsule twice daily for urine tract infection need 5 days of treatment PLEASE TAKE PROBIOTICS ( OVER THE COUNTER ) WHILE TAKING ANTIBIOTICS TO PREVENT DIARRHEA /LOOSE STOOL Follow-up with gastroenterology in 2-3 weeks, please call to schedule an appointment Gastroenterology team would discuss with you about the indication for HIDA scan test in clinic You are scheduled for routine colonoscopy on 04/27/2021 at 9 AM Do not take group of medications belonging to NSAIDs group CAN CAUSE BLEEDING IN STOMACH AND ANEMIA List Of these medications includes but not limited to: Diclofenac Ibuprofen, Motrin, Advil Toradol,ketorolac Naproxen, Aleve, Naprosyn You can take Tylenol as needed for pain or fever When buying [id number] pain medications please consult with pharmacy if you are not sure regarding ingredients, as a lot of the pain medications have combination of NSAIDs and Tylenol. Pending Studies at Discharge: No Stand-Alone Forms: My [facility], Smoking Cessation Medications and DC Order Prescriptions: New lidocaine 4 % adhesive patch,medicated 1 patch topical DAILY 30 Days Qty: 30 RF: 2 amlodipine [Norvasc] 5 mg tablet 5 mg PO DAILY Qty: 30 RF: 0 cephalexin 500 mg capsule 500 mg PO BID 5 Days Qty: 10 RF: 0 Continued ferrous sulfate [FeroSul] 325 mg (65 mg iron) tablet 325 mg PO DAILY Qty: 30 RF: 0 losartan 50 mg tablet 50 mg PO HS RF: 0 carvedilol 6.25 mg tablet 6.25 mg PO BID RF: 0 atorvastatin 20 mg tablet 20 mg PO QAM RF: 0 clopidogrel 75 mg tablet 75 mg PO QAM RF: 0 aspirin [Aspirin Low Dose] 81 mg Tablet,Delayed Release (Dr/Ec) 81 mg PO QAM RF: 0 levothyroxine 88 mcg tablet 88 mcg PO QAM RF: 0 albuterol sulfate [Ventolin HFA] 90 mcg/actuation HFA aerosol inhaler 2 - 4 puff inhalation Q4H PRN (Reason: Shortness Of Breath) RF: 0 famotidine 40 mg tablet 40 mg PO HS RF: 0 Changed Tresiba FlexTouch U-200 200 unit/mL (3 mL) insulin pen 42 unit subcut QAM Qty: 0 RF: 0 metformin 500 mg tablet 500 mg PO BID Qty: 0 RF: 0 Discharge Orders: Discharge Order (Routine); Ordered 03/31/21 Ordered By: Milady Mcclellan/Other Patient Handouts: Managing Type 2 Diabetes, A1C Admission Data Admit Date/Time: 03/29/21 14:58 Attending Provider: Milady Frank Admit Provider: Kike Barber Primary Care Provider: Guido Valera Other Providers: Amina Lopez ; Kike Barber ; Alice Hernández Other Interventions: Discharge Summary Assessment (RN) Last Done: 03/31/21 15:30
[2021-03-31] MEDS: ACETAMINOPHEN 325 MG TAB PO PRN (14:33)
[2021-03-31] MEDS: INSULIN ASPART 100 UNITS/ML 3 ML PEN SC SCH ×2 (17:37→17:38)
[2021-03-31] MEDS ORDERED: amLODIPine BESYLATE 5 MG TAB PO SCH (21:00)
[2021-03-31] MEDS ORDERED: FAMOTIDINE 40 MG TABLET PO SCH (21:00)
== END 2021-03-31 16:30 | disposition home or self-care (01) | DRG 445 ==
LOC: ED 10:37 → 2S 14:58 → SUATTDRO 14:58 → 2S 18:05

== ENCOUNTER 2021-11-08 14:38 | Inpatient (IN) ==
--- NOTE | 2021-11-08 14:57 | Emergency Department Note ---
Impression & Plan Pneumonia, AMS (altered mental status), Metabolic acidosis, EARL (acute kidney injury), Acute dehydration, Thrombocytopenia ED Provider Note NAME: JIMENEZ SIMMONS AGE: 86 SEX: F : 1935 ARRIVES VIA: Ambulance INFORMANT: Patient, EMS ED PROVIDER(S): Evans Grady DO CHIEF COMPLAINT: Found on the floor HPI: The patient is an 86-year-old female who presented to emergency department for an evaluation of possible injury. The patient was not heard from from her relatives since Monday. They went to check on her today and found her lying on the floor. It is unclear if the patient fell. The patient was confused. She was covered in stool and appeared to be incontinent of stool and urine. There was no reported fever. The patient does not complain of any pain but appears to be somewhat confused. It is unclear if the patient was taking her outpatient medications. Her blood pressure was found be very elevated by prehospital personnel. She was treated with a small fluid bolus. The patient herself denies having any chest pain or difficulty breathing. She denies having any recent fevers. She denies having any abdominal pain. She denies having any extremity pain but reportedly she was unable to stand when the prehospital personnel arrived. The patient reportedly had hypoxia prior to arrival. ROS: See above HPI for pertinent positives & negatives. A total of 10 systems reviewed and were otherwise negative. PAST MEDICAL HISTORY: See Below PAST SURGICAL HISTORY: See Below FAMILY HISTORY: See Below SOCIAL HISTORY: See Below HOME MEDICATIONS: See Below ALLERGIES: See Below VITALS: See Below PHYSICAL EXAMINATION: GENERAL: The patient was awake and looking around the room. She does answer to her name but appears somewhat anxious. EYES: The conjunctivae are clear. The pupils are round and reactive. EARS, NOSE, MOUTH AND THROAT: The nose is without any evidence of any deformity. Mucous membranes are dry. NECK: The neck is nontender and supple. RESPIRATORY: Normal respiratory effort is noted there is no evidence of wheezing rhonchi or rales CARDIOVASCULAR: Regular rate and rhythm noted there no murmurs rubs or gallops normal S1 normal S2. GASTROINTESTINAL: The abdomen is mildly distended. There is no specific guarding or rigidity but the abdomen does appear to be tender to palpation. BACK: No ecchymosis or palpable midline tenderness was appreciated. MUSCULOSKELETAL/EXTREMITIES: There is no evidence of gross deformity full range of motion is noted in the hips and shoulders. SKIN: Skin is cold and mottled. Pulses are symmetric in both feet but diminished bilaterally. NEUROLOGIC: Patient is awake and oriented to person but not place time or situation. The patient moves all extremities well. MEDICAL DECISION MAKING: The patient is an 86-year-old female who presented to emergency department for evaluation of altered mental status. The patient arrived via ambulance. History was obtained from the prehospital personnel. Apparently the patient was found by her family member today. The last time they had seen her was last Monday. The patient normally is awake and alert and able to ambulate on her own. She is able to converse on her own and normally cares for herself. She was very confused upon arrival. The patient was treated with IV fluids and IV antibiotics. A Garza catheter was placed. The patient's condition slowly improved while she was in the emergency department. Family members arrived to be with her and states that she still appears to be somewhat confused compared to her baseline. I [facility] the [facility] have agreed to evaluate the patient in the emergency department for further management and disposition. Triage Nursing notes reviewed. Prior medical records reviewed Vital Signs: reviewed and remarkable for hypertension as well as tachycardia and tachypnea. The patient was also hypoxic. Differential diagnosis: Infection, hypoglycemia, electrolyte abnormalities, overdose, toxicologic, cardiac sources, intracerebral event, neurologic, trauma, as well as other pathologies. ER treatment provided: See below Diagnostics interpreted by me: ECG: EKG was obtained in the emergency department. My interpretation is sinus tachycardia with first-degree AV block. No PVCs were noted. Nonspecific ST se gment abnormalities were noted. This was compared to a tracing from July 022020. No significant changes were noted. Cardiac Monitoring: An order was placed for continuous cardiac monitoring. The monitor shows a rate of 91 bpm with sinus rhythm. Laboratory studies: As stated above and show below. Imaging studies: See below Consultation(s): I discussed this case with Rachel Vieyra who [facility] They will evaluate the patient in the emergency department. Past Med/Surg History Medical History Anemia Emphysema Epigastric abdominal pain HLD (hyperlipidemia) Shortness of breath Surgical History History of appendectomy History of intravascular stent placement Reported Left subclavian, superior mesenteric artery, L iliac, L fempop bypass - Dr Andrade [facility] Family History Other Diabetes Hypertension Social History Smoking Status: Smoker, status unknown Hx Alcohol Use: No Hx Substance Use: No Preferred Language: Romanian Communication Ability: Effective Medical Care Manager Required: No Beliefs That Will Affect Care: None Current Living Situation: Alone How many Children do You have: 4 Feels Safe at Home: Yes Assistive Devices: Glasses Allergies Allergies Allergy/AdvReac Type Severity Reaction Status Date / Time amoxicillin Allergy Intermediate STOMACH Unverified 11/08/21 15:25 UPSET--PER [facility] 09/21/21 ENCOUNTER clavulanic acid Allergy Intermediate STOMACH Unverified 11/08/21 15:25 UPSET--PER [facility] 09/21/21 ENCOUNTER vitamin E (d-alpha Allergy Intermediate ITCHY Unverified 11/08/21 15:25 tocopherol) RASH, HIVES--PER [facility] 09/21/21 ENCOUNTER Home Meds Home Medications Medication Instructions Recorded Confirmed albuterol sulfate 90 mcg/actuation 2 puff INHALATION Q4H PRN 04/10/19 11/08/21 aerosol inhaler (Ventolin HFA) aspirin 81 mg tablet,delayed 81 mg PO QAM 04/10/19 11/08/21 release (Aspirin Low Dose) atorvastatin 20 mg tablet 20 mg PO QAM 04/10/19 11/08/21 carvedilol 6.25 mg tablet 6.25 mg PO BID 04/10/19 11/08/21 clopidogrel 75 mg tablet 75 mg PO QAM 04/10/19 11/08/21 levothyroxine 88 mcg tablet 88 mcg PO QAM 04/10/19 11/08/21 losartan 50 mg tablet 50 mg PO 04/10/19 11/08/21 famotidine 40 mg tablet 40 mg PO HS 03/29/21 11/08/21 gabapentin 300 mg capsule 600 mg PO TID 11/08/21 11/08/21 insulin degludec 200 unit/mL (3 15 unit SUBCUT QAM 11/08/21 11/08/21 mL) subcutaneous pen (Tresiba FlexTouch U-200 insulin) ipratropium 0.5 mg-albuterol 3 mg 3 ml INHALATION DIRECTED 11/08/21 11/08/21 (2.5 mg base)/3 mL nebulization soln potassium chloride 10 mEq 10 meq PO DAILY 11/08/21 11/08/21 capsule,extended release sitagliptin 100 mg tablet (Januvia) 100 mg PO DAILY 11/08/21 11/08/21 umeclidinium 62.5 mcg-vilanterol 1 inh INHALATION DAILY 11/08/21 11/08/21 25 mcg/actuation powdr for inhalation (Anoro Ellipta) Previous Rx's Medication Instructions Recorded ferrous sulfate 325 mg (65 mg 325 mg PO DAILY #30 tab 12/21/20 iron) tablet (FeroSul) lidocaine 4 % topical patch 1 patch TOPICAL DAILY 30 Days #30 03/31/21 ea Results & Data (ED) Vital Signs Vital Signs - 24 hr 11/08/21 14:43 11/08/21 14:54 11/08/21 15:00 Pulse Rate 112 H 103 H 105 H Pulse Rate [Apical] Pulse Rate from SpO2 Sensor 110 H 104 H 105 H Respiratory Rate 19 25 H 17 Respiratory Effort / Characteristics Blood Pressure 187/86 H Blood Pressure [Left Arm] Blood Pressure Mean 119 Blood Pressure Mean [Left Arm] Pulse Oximetry 94 94 93 Oxygen Delivery Method Oxygen Flow Rate Sepsis Recent Fever Within 48 Hours Sepsis New/Unexplained Change in Mental Status Sepsis Action Taken by Nursing 11/08/21 15:11 11/08/21 15:13 11/08/21 15:18 Pulse Rate 106 H Pulse Rate [Apical] 106 H Pulse Rate from SpO2 Sensor Respiratory Rate 24 23 25 H Respiratory Effort / Characteristics Labored Short of Breath Accessory Muscle Use Labored Short of Breath Blood Pressure 187/86 H Blood Pressure [Left Arm] 187/86 H Blood Pressure Mean 119 Blood Pressure Mean [Left Arm] 119 Pulse Oximetry 91 84 L 91 Oxygen Delivery Method Nasal Cannula Room Air Nasal Cannula Oxygen Flow Rate 4 4 Sepsis Recent Fever Within 48 Hours No Sepsis New/Unexplained Change in Mental Status Yes Sepsis Action Taken by Nursing Previously Notified 11/08/21 15:19 11/08/21 15:24 11/08/21 15:27 Pulse Rate 96 H Pulse Rate [Apical] 105 H Pulse Rate from SpO2 Sensor 97 H Respiratory Rate 25 H 35 H Respiratory Effort / Characteristics Blood Pressure 163/112 H Blood Pressure [Left Arm] Blood Pressure Mean 129 Blood Pressure Mean [Left Arm] Pulse Oximetry 91 93 93 Oxygen Delivery Method Nasal Cannula Nasal Cannula Oxygen Flow Rate 4 Sepsis Recent Fever Within 48 Hours Sepsis New/Unexplained Change in Mental Status Sepsis Action Taken by Nursing 11/08/21 15:49 11/08/21 16:00 11/08/21 16:09 Pulse Rate 96 H Pulse Rate [Apical] 96 H Pulse Rate from SpO2 Sensor 96 H 96 H Respiratory Rate 34 H 24 Respiratory Effort / Characteristics Blood Pressure Blood Pressure [Left Arm] 163/112 H Blood Pressure Mean Blood Pressure Mean [Left Arm] 129 Pulse Oximetry 92 94 93 Oxygen Delivery Method Nasal Cannula Oxygen Flow Rate 4 Sepsis Recent Fever Within 48 Hours Sepsis New/Unexplained Change in Mental Status Sepsis Action Taken by Nursing 11/08/21 16:16 11/08/21 16:21 11/08/21 16:23 Pulse Rate 93 H 92 H Pulse Rate [Apical] 96 H Pulse Rate from SpO2 Sensor 93 H 92 H Respiratory Rate 24 25 H 23 Respiratory Effort / Characteristics Labored Short of Breath Blood Pressure 102/59 L 140/37 L Blood Pressure [Left Arm] Blood Pressure Mean 73 71 Blood Pressure Mean [Left Arm] Pulse Oximetry 94 95 95 Oxygen Delivery Method Nasal Cannula Oxygen Flow Rate 4 Sepsis Recent Fever Within 48 Hours Sepsis New/Unexplained Change in Mental Status Sepsis Action Taken by Nursing 11/08/21 16:24 11/08/21 16:30 11/08/21 16:38 Pulse Rate 93 H 93 H Pulse Rate [Apical] 93 H Pulse Rate from SpO2 Sensor 93 H 93 H Respiratory Rate 29 H 36 H Respiratory Effort / Characteristics Labored Blood Pressure 125/47 L Blood Pressure [Left Arm] 140/37 L 125/47 L Blood Pressure Mean 73 Blood Pressure Mean [Left Arm] 71 73 Pulse Oximetry 95 94 Oxygen Delivery Method Nasal Cannula Oxygen Flow Rate 4 Sepsis Recent Fever Within 48 Hours Sepsis New/Unexplained Change in Mental Status Sepsis Action Taken by Nursing 11/08/21 17:00 11/08/21 17:09 11/08/21 17:10 Pulse Rate 98 H Pulse Rate [Apical] 96 H Pulse Rate from SpO2 Sensor 98 H Respiratory Rate 25 H 25 H Respiratory Effort / Characteristics Blood Pressure Blood Pressure [Left Arm] 125/47 L Blood Pressure Mean Blood Pressure Mean [Left Arm] 73 Pulse Oximetry 94 93 92 Oxygen Delivery Method Nasal Cannula Nasal Cannula Oxygen Flow Rate 4 4 Sepsis Recent Fever Within 48 Hours Sepsis New/Unexplained Change in Mental Status Sepsis Action Taken by Nursing 11/08/21 17:30 11/08/21 17:31 11/08/21 18:00 Pulse Rate 103 H Pulse Rate [Apical] Pulse Rate from SpO2 Sensor 99 H 99 H 104 H Respiratory Rate Respiratory Effort / Characteristics Blood Pressure 171/63 H Blood Pressure [Left Arm] Blood Pressure Mean 99 Blood Pressure Mean [Left Arm] Pulse Oximetry 90 88 L 92 Oxygen Delivery Method Oxygen Flow Rate Sepsis Recent Fever Within 48 Hours Sepsis New/Unexplained Change in Mental Status Sepsis Action Taken by Nursing 11/08/21 18:30 11/08/21 19:00 Pulse Rate 94 H 91 H Pulse Rate [Apical] Pulse Rate from SpO2 Sensor 94 H 91 H Respiratory Rate 49 H 26 H Respiratory Effort / Characteristics Blood Pressure Blood Pressure [Left Arm] Blood Pressure Mean Blood Pressure Mean [Left Arm] Pulse Oximetry 95 92 Oxygen Delivery Method Oxygen Flow Rate Sepsis Recent Fever Within 48 Hours Sepsis New/Unexplained Change in Mental Status Sepsis Action Taken by [facility] Medications Current Medication List: was personally reviewed by me Laboratory Data Attestation: I reviewed the patient's lab results. Result diagrams: 11/08/21 14:50 11/08/21 16:15 Lab Results 11/08/21 11/08/21 11/08/21 Range/Units 14:50 14:50 14:50 WBC 22.27 H (4.8-10.8) K/uL RBC 4.39 (4.2-5.4) M/uL Hgb 12.0 (12.0-16.0) g/dL Hct 37.4 (37-47) % MCV 85.2 (80-100) fL MCH 27.3 (25-34) pg MCHC 32.1 (32-36) g/dL RDW Std Deviation 71.2 H (36.4-46.3) fL RDW Coeff of Daniela 23.1 H (11.5-14.5) % Plt Count 101 L (130-400) K/uL Immature Gran % (Auto) 7.5 % Neut % (Auto) 82.7 % Lymph % (Auto) 5.0 % [place] % (Auto) 4.5 % Eos % (Auto) 0.1 % Baso % (Auto) 0.2 % Neut # (Auto) 18.41 H (1.4-6.5) K/uL Lymph # (Auto) 1.12 L (1.2-3.4) K/uL [place] # (Auto) 1.01 H (0.11-0.59) K/uL Eos # (Auto) 0.03 (0-0.5) K/uL Baso # (Auto) 0.04 (0-0.2) K/uL Immature Gran # (Auto) 1.66 H (0.00-0.02) K/uL Toxic Vacuolation 2+ Platelet Estimate Decreased L (Normal) Anisocytosis Present Echinocytes 1+ PT INR APTT PTT Ratio ABG pH (7.35-7.45) ABG pCO2 (35-46) mmHg ABG pO2 (80-95) mmHg ABG HCO3 (19-24) mmol/L ABG O2 Saturation (90-95) % ABG Base Excess (-9-1.8) mEq/L Alan Test (Pos) Barometric Pressure mm/Hg Oxygen Given Sodium Cancelled Potassium Cancelled Chloride Cancelled Carbon Dioxide Cancelled Anion Gap Cancelled BUN Cancelled Creatinine Cancelled Est Cr Clr Drug Dosing Cancelled Est GFR ( Amer) Cancelled Est GFR (Non-Af Amer) Cancelled BUN/Creatinine Ratio Cancelled Glucose Cancelled Lactate Calcium Cancelled Magnesium Cancelled Total Bilirubin Cancelled Direct Bilirubin Cancelled AST Cancelled ALT Cancelled Alkaline Phosphatase Cancelled Total Creatine Kinase Cancelled CK-MB (CK-2) Cancelled CK/CKMB % Calc Cancelled Troponin I Cancelled Total Protein Cancelled Albumin Cancelled Globulin Cancelled Albumin/Globulin Ratio Cancelled Procalcitonin Cancelled TSH Cancelled Urine Color Urine Appearance (Clear) Urine pH (4.5-7.5) Ur Specific [place] (1.000-1.030) Urine Protein (Negative) Urine Glucose (UA) (Negative) Urine Ketones (Negative) Urine Blood (Negative) Urine Nitrite (Negative) Urine Bilirubin (Negative) Urine Urobilinogen (Negative) Ur Leukocyte Esterase (Negative) Urine WBC (Auto) (0-5) /hpf Urine RBC (Auto) (0-4) /hpf U Hyaline Cast (Auto) (0-5) /lpf U Epithel Cells (Auto) (0-5) /lpf Urine Bacteria (Auto) (Negative) Ur Renal Epithelial Cell (0-5) /lpf Urine Yeast SARS-CoV-2 (PCR) (Negative) Influenza Type A (PCR) (Neg) Influenza Type B (PCR) (Neg) RSV (RT-PCR) (Neg) 11/08/21 11/08/21 11/08/21 Range/Units 14:50 14:50 15:12 WBC (4.8-10.8) K/uL RBC (4.2-5.4) M/uL Hgb (12.0-16.0) g/dL Hct (37-47) % MCV (80-100) fL MCH (25-34) pg MCHC (32-36) g/dL RDW Std Deviation (36.4-46.3) fL RDW Coeff of Daniela (11.5-14.5) % Plt Count (130-400) K/uL Immature Gran % (Auto) % Neut % (Auto) % Lymph % (Auto) % [place] % (Auto) % Eos % (Auto) % Baso % (Auto) % Neut # (Auto) (1.4-6.5) K/uL Lymph # (Auto) (1.2-3.4) K/uL [place] # (Auto) (0.11-0.59) K/uL Eos # (Auto) (0-0.5) K/uL Baso # (Auto) (0-0.2) K/uL Immature Gran # (Auto) (0.00-0.02) K/uL Toxic Vacuolation Platelet Estimate (Normal) Anisocytosis Echinocytes PT Cancelled INR Cancelled APTT Cancelled PTT Ratio Cancelled ABG pH (7.35-7.45) ABG pCO2 (35-46) mmHg ABG pO2 (80-95) mmHg ABG HCO3 (19-24) mmol/L ABG O2 Saturation (90-95) % ABG Base Excess (-9-1.8) mEq/L Alan Test (Pos) Barometric Pressure mm/Hg Oxygen Given Sodium Potassium Chloride Carbon Dioxide Anion Gap BUN Creatinine Est Cr Clr Drug Dosing Est GFR ( Amer) Est GFR (Non-Af Amer) BUN/Creatinine Ratio Glucose Lactate Cancelled Calcium Magnesium Total Bilirubin Direct Bilirubin AST ALT Alkaline Phosphatase Total Creatine Kinase CK-MB (CK-2) CK/CKMB % Calc Troponin I Total Protein Albumin Globulin Albumin/Globulin Ratio Procalcitonin TSH Urine Color Urine Appearance (Clear) Urine pH (4.5-7.5) Ur Specific [place] (1.000-1.030) Urine Protein (Negative) Urine Glucose (UA) (Negative) Urine Ketones (Negative) Urine Blood (Negative) Urine Nitrite (Negative) Urine Bilirubin (Negative) Urine Urobilinogen (Negative) Ur Leukocyte Esterase (Negative) Urine WBC (Auto) (0-5) /hpf Urine RBC (Auto) (0-4) /hpf U Hyaline Cast (Auto) (0-5) /lpf U Epithel Cells (Auto) (0-5) /lpf Urine Bacteria (Auto) (Negative) Ur Renal Epithelial Cell (0-5) /lpf Urine Yeast SARS-CoV-2 (PCR) NEGATIVE (Negative) Influenza Type A (PCR) Negative (Neg) Influenza Type B (PCR) Negative (Neg) RSV (RT-PCR) Negative (Neg) 11/08/21 11/08/21 11/08/21 Range/Units 16:00 16:12 16:15 WBC (4.8-10.8) K/uL RBC (4.2-5.4) M/uL Hgb (12.0-16.0) g/dL Hct (37-47) % MCV (80-100) fL MCH (25-34) pg MCHC (32-36) g/dL RDW Std Deviation (36.4-46.3) fL RDW Coeff of Daniela (11.5-14.5) % Plt Count (130-400) K/uL Immature Gran % (Auto) % Neut % (Auto) % Lymph % (Auto) % [place] % (Auto) % Eos % (Auto) % Baso % (Auto) % Neut # (Auto) (1.4-6.5) K/uL Lymph # (Auto) (1.2-3.4) K/uL [place] # (Auto) (0.11-0.59) K/uL Eos # (Auto) (0-0.5) K/uL Baso # (Auto) (0-0.2) K/uL Immature Gran # (Auto) (0.00-0.02) K/uL Toxic Vacuolation Platelet Estimate (Normal) Anisocytosis Echinocytes PT 11.9 INR 1.2 H APTT 35.8 H PTT Ratio 1.4 ABG pH 7.36 (7.35-7.45) ABG pCO2 32 L (35-46) mmHg ABG pO2 84 (80-95) mmHg ABG HCO3 18 L (19-24) mmol/L ABG O2 Saturation 96.5 H (90-95) % ABG Base Excess -6.6 (-9-1.8) mEq/L Alan Test POS (Pos) Barometric Pressure 735.9 mm/Hg Oxygen Given ROOM AIR Sodium Potassium Chloride Carbon Dioxide Anion Gap BUN Creatinine Est Cr Clr Drug Dosing Est GFR ( Amer) Est GFR (Non-Af Amer) BUN/Creatinine Ratio Glucose Lactate Calcium Magnesium Total Bilirubin Direct Bilirubin AST ALT Alkaline Phosphatase Total Creatine Kinase CK-MB (CK-2) CK/CKMB % Calc Troponin I Total Protein Albumin Globulin Albumin/Globulin Ratio Procalcitonin TSH Urine Color Dark Yellow Urine Appearance Cloudy A (Clear) Urine pH 5.0 (4.5-7.5) Ur Specific [place] 1.022 (1.000-1.030) Urine Protein 3+ H (Negative) Urine Glucose (UA) Negative (Negative) Urine Ketones Trace H (Negative) Urine Blood 2+ H (Negative) Urine Nitrite Negative (Negative) Urine Bilirubin Negative (Negative) Urine Urobilinogen Negative (Negative) Ur Leukocyte Esterase Trace H (Negative) Urine WBC (Auto) 10-30 H (0-5) /hpf Urine RBC (Auto) 0-4 (0-4) /hpf U Hyaline Cast (Auto) 5-10 H (0-5) /lpf U Epithel Cells (Auto) >30 H (0-5) /lpf Urine Bacteria (Auto) 1+ H (Negative) Ur Renal Epithelial Cell 0-5 (0-5) /lpf Urine Yeast Not Reportable SARS-CoV-2 (PCR) (Negative) Influenza Type A (PCR) (Neg) Influenza Type B (PCR) (Neg) RSV (RT-PCR) (Neg) 11/08/21 11/08/21 11/08/21 Range/Units 16:15 16:15 17:28 WBC (4.8-10.8) K/uL RBC (4.2-5.4) M/uL Hgb (12.0-16.0) g/dL Hct (37-47) % MCV (80-100) fL MCH (25-34) pg MCHC (32-36) g/dL RDW Std Deviation (36.4-46.3) fL RDW Coeff of Daniela (11.5-14.5) % Plt Count (130-400) K/uL Immature Gran % (Auto) % Neut % (Auto) % Lymph % (Auto) % [place] % (Auto) % Eos % (Auto) % Baso % (Auto) % Neut # (Auto) (1.4-6.5) K/uL Lymph # (Auto) (1.2-3.4) K/uL [place] # (Auto) (0.11-0.59) K/uL Eos # (Auto) (0-0.5) K/uL Baso # (Auto) (0-0.2) K/uL Immature Gran # (Auto) (0.00-0.02) K/uL Toxic Vacuolation Platelet Estimate (Normal) Anisocytosis Echinocytes PT INR APTT PTT Ratio ABG pH (7.35-7.45) ABG pCO2 (35-46) mmHg ABG pO2 (80-95) mmHg ABG HCO3 (19-24) mmol/L ABG O2 Saturation (90-95) % ABG Base Excess (-9-1.8) mEq/L Alan Test (Pos) Barometric Pressure mm/Hg Oxygen Given Sodium 143 Potassium 3.3 L Chloride 114 H Carbon Dioxide 17 L Anion Gap 12.0 H BUN 43 H Creatinine 1.36 H Est Cr Clr Drug Dosing 25.1 Est GFR ( Amer) 41.0 Est GFR (Non-Af Amer) 35.4 BUN/Creatinine Ratio 31.3 H Glucose 111 H Lactate 2.6 H* Calcium 9.4 Magnesium 1.9 Total Bilirubin 3.3 H Direct Bilirubin AST 34 ALT 31 Alkaline Phosphatase 78 D Total Creatine Kinase CK-MB (CK-2) CK/CKMB % Calc Troponin I 0.033 Total Protein 6.9 Albumin 2.7 L Globulin 4.2 H Albumin/Globulin Ratio 0.6 L Procalcitonin 15.79 H TSH Urine Color Urine Appearance (Clear) Urine pH (4.5-7.5) Ur Specific [place] (1.000-1.030) Urine Protein (Negative) Urine Glucose (UA) (Negative) Urine Ketones (Negative) Urine Blood (Negative) Urine Nitrite (Negative) Urine Bilirubin (Negative) Urine Urobilinogen (Negative) Ur Leukocyte Esterase (Negative) Urine WBC (Auto) (0-5) /hpf Urine RBC (Auto) (0-4) /hpf U Hyaline Cast (Auto) (0-5) /lpf U Epithel Cells (Auto) (0-5) /lpf Urine Bacteria (Auto) (Negative) Ur Renal Epithelial Cell (0-5) /lpf Urine Yeast SARS-CoV-2 (PCR) (Negative) Influenza Type A (PCR) (Neg) Influenza Type B (PCR) (Neg) RSV (RT-PCR) (Neg) Administered Medications Discontinued Medications Piperacillin Sod/Tazobactam Sod (Zosyn) 4.5 gm in 120 mls @ 240 mls/hr IV NOW ONE Stop: 11/08/21 16:01 Last Infusion: 11/08/21 17:11 Dose: 0 mls/hr Documented by: [id number] Admin: 11/08/21 16:14 Dose: 240 mls/hr Documented by: [id number] Sodium Chloride (Nss 1000ml) 1,000 mls @ 999 mls/hr IV .Q1H1M ONE Stop: 11/08/21 19:50 Last Admin: 11/08/21 18:52 Dose: 999 mls/hr Documented by: [id number] Imaging Data Radiologist's Impression: Cervical Spine CT 11/08/21 14:38 CT cervical spine wo con CLINICAL HISTORY: 86 years-old Female with fall. Acute head and neck injury status post fall COMPARISON: Head CT of same day TECHNIQUE: Multiple axial CT images of the cervical spine were obtained without contrast. A dose lowering technique was utilized adhering to the principles of ALARA. FINDINGS: Demineralized appearance of the bones. Grade 1 anterolisthesis C3 on C4, C4 on C5, C7 on T1, and T1 on T2 is likely degenerative. Severe degeneration at C1-C2. Multilevel intervertebral disc space narrowing, severe at C5-C6 and C6 or C7. Severe multilevel facet arthrosis. Nuchal ligament calcifications. Multilevel neural foraminal narrowing. No acute fracture or subluxation. Left subclavian endograft. Biapical pleural-parenchymal scarring. Unremarkable soft tissues. There is no prevertebral edema. Calcified plaque of the carotid arteries. Volume loss with partial opacification of the left maxillary sinus. IMPRESSION: No acute cervical spine fracture or subluxation. ACT 112: Negative or not required by law. The above report was generated using voice recognition software. It may contain grammatical, syntax or spelling errors. Electronically signed by: Hector Talamantes M.D. 11/08/2021 4:[address] 11/08/21 14:38 CT head/brain wo con CLINICAL HISTORY: fall Technique: Contiguous axial CT images of the head were acquired from the base of the skull to the vertex without intravenous contrast administration. Images were viewed in brain, subdural and bone windows. Automated dose lowering techniques and/or adjustment according to patient size were utilized for this exam. Comparison: None available at the time of this dictation. Findings: The ventricles, basal cisterns, and cerebral sulci are normal. There is no acute intracranial hemorrhage or evidence of acute territorial infarction. Neither mass effect, shift of the midline structures, nor abnormal extra-axial fluid collections are shown. Imaged portions of the paranasal sinuses and mastoid air cells are clear. The orbits appear normal. There are no acute fractures of the calvaria or scalp swelling. Impression: No acute intracranial hemorrhage, no evidence of acute territorial infarction or other acute intracranial disease process. ACT 112: Negative or not required by law. Electronically signed by: Ayden Patterson M.D. 11/08/2021 4:01 PM Chest X-Ray 11/08/21 14:39 XR chest 1V portable HISTORY: 86 years-old Female SEPSIS acute sepsis COMPARISON: Chest radiograph 03/29/2021 TECHNIQUE: Supine AP view of the chest FINDINGS: Cardiac silhouette is upper limits of normal in size. Calcified plaque the thoracic aorta. Vascular graft the left subclavian distribution redemonstrated. No pneumothorax or large pleural effusion. Asymmetric right hilar prominence. Dense airspace consolidation of the right lung base and right midlung. The left lung is clear. Degenerative changes of the shoulders and spine. IMPRESSION: 1. Dense airspace consolidation of the right midlung and right lung base is suggestive of pneumonia. Follow-up imaging to document resolution is needed. 2. Asymmetric right hilar prominence may represent associated adenopathy. ACT 112: Negative or not required by law. The above report was generated using voice recognition software. It may contain grammatical, syntax or spelling errors. Electronically signed by: Hector Talamantes M.D. 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 Patient is slightly rotated. No acute fracture, dislocation or avascular necrosis. Left iliac vascular stents. Surgical clips of the left inguinal region. IMPRESSION: No acute fracture. ACT 112: Negative or not required by law. The above report was generated using voice recognition software. It may contain grammatical, syntax or spelling errors. Electronically signed by: Hector Talamantes M.D. 11/08/2021 3:[address] 11/08/21 15:36 CT chest diagnostic wo con CLINICAL HISTORY: right sided mass TECHNIQUE: Multidetector row helical CT of the chest was performed. Coronal and sagittal reformations were obtained. Automated dose lowering techniques and/or adjustment according to patient size were utilized for this exam. Comparison: Comparison is made to CT chest 12/16/2020 FINDINGS: Lungs and pleura: There is consolidative opacity at the right lower lobe without significant volume loss. Biapical scarring is seen. Heart and pericardium: Heart size is normal. No pericardial effusion. Vessels: Severe atherosclerotic changes in the aorta and coronary arteries. Mediastinum and didier: Subcentimeter lymph nodes are seen. Chest wall and lower neck: Unremarkable. Abdomen: Cirrhotic morphology of the liver is noted. Bones: Degenerative changes in the thoracic spine. Compression fractures of T6 and T10 are progressed from prior exam. IMPRESSION: 1. Right lower lobe consolidative opacities concerning for pneumonia and/or aspiration. 2. Severe atherosclerotic disease. 3. Compression deformities in the thoracic spine which increased from prior exam. ACT 112: Negative or not required by law. Electronically signed by: Ayden Patterson M.D. 11/08/2021 3:57 PM Discharge Plan Visit Data Chief Complaint: Fall ED Provider: Evans Grady Discharge Problem: Pneumonia, AMS (altered mental status), Metabolic acidosis, EARL (acute kidney injury), Acute dehydration, Thrombocytopenia Patient Disposition: Being Evaluated by Hospitalist Forms Stand Alone Forms: My [facility] Prescriptions Prescriptions: No Action ferrous sulfate [FeroSul] 325 mg (65 mg iron) tablet 325 mg PO DAILY Qty: 30 RF: 0 losartan 50 mg tablet 50 mg PO HS RF: 0 carvedilol 6.25 mg tablet 6.25 mg PO BID RF: 0 atorvastatin 20 mg tablet 20 mg PO QAM RF: 0 clopidogrel 75 mg tablet 75 mg PO QAM RF: 0 aspirin [Aspirin Low Dose] 81 mg Tablet,Delayed Release (Dr/Ec) 81 mg PO QAM RF: 0 levothyroxine 88 mcg tablet 88 mcg PO QAM RF: 0 albuterol sulfate [Ventolin HFA] 90 mcg/actuation HFA aerosol inhaler 2 puff inhalation Q4H PRN (Reason: Wheezing) RF: 0 famotidine 40 mg tablet 40 mg PO HS RF: 0 lidocaine 4 % adhesive patch,medicated 1 patch topical DAILY 30 Days Qty: 30 RF: 2 ipratropium-albuterol 0.5 mg-3 mg(2.5 mg base)/3 mL solution for nebulization 3 ml INHALATION DIRECTED RF: 0 gabapentin 300 mg Capsule 600 mg PO TID RF: 0 potassium chloride 10 mEq Capsule, Extended Release 10 meq PO DAILY RF: 0 Januvia 100 mg Tablet 100 mg PO DAILY RF: 0 Anoro Ellipta 62.5-25 mcg/actuation Blister With Device 1 inh INHALATION DAILY RF: 0 Tresiba FlexTouch U-200 200 unit/mL (3 mL) insulin pen 15 unit subcut QAM RF: 0 Referrals Referrals: Guiod Valera [Primary Care Provider] -
[2021-11-08 15:08] LABS: Mean Corpuscular Hgb Conc 32.1 g/dL (32-36)
--- NOTE | 2021-11-08 15:14 | XRay Report ---
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 Patient is slightly rotated. No acute fracture, dislocation or avascular necrosis. Left iliac vascular stents. Surgical clips of the left inguinal r egion. IMPRESSION: No acute fracture. ACT 112: Negative or not required by law. The above report was generated using voice recognition software. It may contain grammatical, syntax o r spelling errors. Electronically signed by: Hector Talamantes M.D. 11/08/2021 3:12 PM
--- NOTE | 2021-11-08 15:15 | XRay Report ---
XR chest 1V portable HISTORY: 86 years-old Female SEPSIS acute sepsis COMPARISON: Chest radiograph 03/29/2021 TECHNIQUE: Supine AP view of the chest FINDINGS: Cardiac silhouette is upper limits of normal in size. Calcified plaque the thoracic aorta. Vascular g raft the left subclavian distribution redemonstrated. No pneumothorax or large pleural effusion. Asym metric right hilar prominence. Dense airspace consolidation of the right lung base and right midlung. The left lung is clear. Degenerative changes of the shoulders and spine. IMPRESSION: 1. Dense airspace consolidation of the right midlung and right lung base is suggestive of pneumonia. Follow-up imaging to document resolution is needed. 2. Asymmetric right hilar prominence may represent associated adenopathy. ACT 112: Negative or not required by law. The above report was generated using voice recognition software. It may contain grammatical, syntax o r spelling errors. Electronically signed by: Hector Talamantes M.D. 11/08/2021 3:14 PM
[2021-11-08 15:17] LABS: Hematocrit (blood only) 37.4 % (37-47); Mean Corpuscular Hemoglobin 27.3 pg (25-34); Mean Corpuscular Volume 85.2 fL (80-100); RDW Coefficient of Variation 23.1 % (11.5-14.5); RDW Standard Deviation 71.2 fL (36.4-46.3); Red Blood Count 4.39 M/uL (4.2-5.4); White Blood Count 22.27 K/uL (4.8-10.8)
[2021-11-08 15:32] LABS: Platelet Count 101 K/uL (130-400)
[2021-11-08] MEDS ORDERED: PIPERACILL/TAZOBAC CONSULT ACTIVE PRN (15:32)
[2021-11-08] MEDS ORDERED: PIPERACILLIN/TAZOBACTAM 4.5 GM/120 ML BAG IV ONE (15:32)
[2021-11-08 15:33] LABS: Anisocytosis Present; Basophils # (auto) 0.04 K/uL (0-0.2); Basophils % (auto) 0.2 %; Echinocytes 1+; Eosinophils # (auto) 0.03 K/uL (0-0.5); Eosinophils % (auto) 0.1 %; Immature Granulocytes # (auto) 1.66 K/uL (0.00-0.02); Immature Granulocytes % (auto) 7.5 %; Lymphocytes # (auto) 1.12 K/uL (1.2-3.4); Monocytes # (auto) 1.01 K/uL (0.11-0.59); Monocytes % (auto) 4.5 %; Neutrophils # (auto) 18.41 K/uL (1.4-6.5); Neutrophils % (auto) 82.7 %; Platelet Estimate Decreased (Normal); Toxic Vacuolation 2+
--- NOTE | 2021-11-08 15:58 | CT Scan Report ---
CT chest diagnostic wo con CLINICAL HISTORY: right sided mass TECHNIQUE: Multidetector row helical CT of the chest was performed. Coronal and sagittal reformations were obtained. Automated dose lowering techniques and/or adjustment according to patient size were u tilized for this exam. Comparison: Comparison is made to CT chest 12/16/2020 FINDINGS: Lungs and pleura: There is consolidative opacity at the right lower lobe without significant volume l oss. Biapical scarring is seen. Heart and pericardium: Heart size is normal. No pericardial effusion. Vessels: Severe atherosclerotic changes in the aorta and coronary arteries. Mediastinum and didier: Subcentimeter lymph nodes are seen. Chest wall and lower neck: Unremarkable. Abdomen: Cirrhotic morphology of the liver is noted. Bones: Degenerative changes in the thoracic spine. Compression fractures of T6 and T10 are progressed from prior exam. IMPRESSION: 1. Right lower lobe consolidative opacities concerning for pneumonia and/or aspiration. 2. Severe atherosclerotic disease. 3. Compression deformities in the thoracic spine which increased from prior exam. ACT 112: Negative or not required by law. Electronically signed by: Ayden Patterson M.D. 11/08/2021 3:57 PM
--- NOTE | 2021-11-08 16:03 | CT Scan Report ---
CT head/brain wo con CLINICAL HISTORY: fall Technique: Contiguous axial CT images of the head were acquired from the base of the skull to the vish amaury without intravenous contrast administration. Images were viewed in brain, subdural and bone [facility]. Automated dose lowering techniques and/or adjustment according to patient size were utilized for this exam. Comparison: None available at the time of this dictation. Findings: The ventricles, basal cisterns, and cerebral sulci are normal. There is no acute intracranial hemorrh age or evidence of acute territorial infarction. Neither mass effect, shift of the midline structures , nor abnormal extra-axial fluid collections are shown. Imaged portions of the paranasal sinuses and mastoid air cells are clear. The orbits appear normal. There are no acute fractures of the calvaria or scalp swelling. Impression: No acute intracranial hemorrhage, no evidence of acute territorial infarction or other acute intracra nial disease process. ACT 112: Negative or not required by law. Electronically signed by: Ayden Patterson M.D. 11/08/2021 4:01 PM
--- NOTE | 2021-11-08 16:03 | CT Scan Report ---
CT cervical spine wo con CLINICAL HISTORY: 86 years-old Female with fall. Acute head and neck injury status post fall COMPARISON: Head CT of same day TECHNIQUE: Multiple axial CT images of the cervical spine were obtained without contrast. A dose low ering technique was utilized adhering to the principles of ALARA. FINDINGS: Demineralized appearance of the bones. Grade 1 anterolisthesis C3 on C4, C4 on C5, C7 on T1 , and T1 on T2 is likely degenerative. Severe degeneration at C1-C2. Multilevel intervertebral disc s pace narrowing, severe at C5-C6 and C6 or C7. Severe multilevel facet arthrosis. Nuchal ligament calc ifications. Multilevel neural foraminal narrowing. No acute fracture or subluxation. Left subclavian endograft. Biapical pleural-parenchymal scarring. Unremarkable soft tissues. There is no prevertebral edema. Santos cified plaque of the carotid arteries. Volume loss with partial opacification of the left maxillary s inus. IMPRESSION: No acute cervical spine fracture or subluxation. ACT 112: Negative or not required by law. The above report was generated using voice recognition software. It may contain grammatical, syntax o r spelling errors. Electronically signed by: Hector Talamantes M.D. 11/08/2021 4:02 PM
[2021-11-08 16:05] LABS: Influenza A virus by PCR Negative (Neg); Influenza B virus by PCR Negative (Neg); RSV by PCR Negative (Neg); SARS CoV2 RNA(COVID-19) InHosp NEGATIVE (Negative)
[2021-11-08 16:19] LABS: Appearance Urine Cloudy (Clear); Bacteria Urine Automated 1+ (Negative); Bilirubin Urine Negative (Negative); Blood Urine 2+ (Negative); Color Urine Dark Yellow; Epithelial Cell Urine Auto >30 /lpf (0-5); Glucose Urine UA Negative (Negative); Ketones Urine Trace (Negative); Leukocyte Esterase Urine Trace (Negative); Nitrite Urine Negative (Negative); Protein Urine 3+ (Negative); RBC Urine Automated 0-4 /hpf (0-4); Specific Gravity Urine 1.022 (1.000-1.030); Urobilinogen Urine Negative (Negative)
[2021-11-08 16:33] LABS: Allen Test POS (Pos); Base Excess ABG -6.6 mEq/L (-9-1.8); HCO3 ABG 18 mmol/L (19-24); Oxygen Saturation ABG 96.5 % (90-95); PCO2 ABG 32 mmHg (35-46); PO2 ABG 84 mmHg (80-95); pH ABG 7.36 (7.35-7.45)
[2021-11-08 16:38] LABS: Renal Epithelial Cells Urine 0-5 /lpf (0-5)
[2021-11-08] MEDS ORDERED: SODIUM CHLORIDE 0.9% 1000ML 1,000 ML IV ONE (18:50)
[2021-11-08 19:09] LABS: INR 1.2 (0.9-1.1); Partial Thromboplastin Ratio 1.4; Partial Thromboplastin Time 35.8 Seconds (21.0-31.0); Prothrombin Time 11.9 Seconds (9.0-12.0)
[2021-11-08 19:11] LABS: Albumin Level 2.7 gm/dl (3.4-5.0); BUN Creatinine Ratio 31.3 (10-20); Calcium 9.4 mg/dl (8.5-10.1); Creatinine Clr Calc Pharmacy 25.1 ml/min; Est GFR (Non-African American) 35.4 ml/min; Magnesium 1.9 mg/dl (1.8-2.4); Potassium 3.3 mmol/L (3.5-5.1)
[2021-11-08 19:16] LABS: Albumin Globulin Ratio 0.6 (0.9-2); Bilirubin,Total 3.3 mg/dl (0.2-1); Globulin 4.2 gm/dl (2.5-4.0); Total Protein 6.9 gm/dl (6.4-8.2); Troponin I 0.033 ng/ml (0-0.045)
[2021-11-08] MEDS ORDERED: CONSULT PHARMACY STA (20:18)
--- NOTE | 2021-11-08 20:24 | History & Physical Report ---
Date of Service November 08, 2021 Assessment & Plan (1) Acute metabolic encephalopathy: (2) Hypoxia: (3) Sepsis: (4) Pneumonia: Plan: This is an 86yo F with a PMH of PAD s/p stent L subclavian, superior mesenteric artery, L iliac and fempop bypass, infrarenal AAA measuring 3.9 cm, HTN, HLD, CKD III, insulin dependent DM II, COPD, hypothyroidism, history of C. difficile in May 2021 and other medical problems who presents after unwitnessed fall with acute metabolic encephalopathy, sepsis and pneumonia. Saturating at 91% on 5L NC (does not require home O2), leukocytosis of 22.27, lactate 2.6, procalcitonin 15.79 Covid, flu A/B, RSV PCR negative CT chest with right lower lobe consolidative opacities concerning for pneumonia and/or aspiration Started on empiric Zosyn, adding vanco. Follow blood, sputum and urine cultures Expect improvement to mentation with IV fluids and abx. If no improvement by tomorrow, consider brain MRI Continue supplemental O2, nebs as needed (5) Fall: Plan: Unwitnessed fall at home, found on the ground. Likely there for an extended period of time Total creatinine kinase elevated at 328 CT head, cervical spine CT, chest CT, pelvic XR without evidence of acute trauma or fracture Fall precautions, PT OT evaluation (6) Acute kidney injury superimposed on chronic kidney disease: Plan: Cr elevated at 1.36 (baseline ~ 0.9) in setting of dehydration, elevated CK from fall Expect improvement with IV fluids. Avoid nephrotoxic agents. Repeat BMP in the morning (7) PAD (peripheral artery disease): Plan: S/p stent L subclavian, superior mesenteric artery, L iliac and fempop bypass Follows with Dr. Andrade of vascular surgery in [place] Continue aspirin, plavix, statin (8) Cirrhosis: Plan: Diagnosed in January 2021, [place] Last abdominal us in April 2017 with cholelithiasis without cholecystitis, hepatic cirrhosis Will obtain repeat abdominal ultrasound due to abdominal TTP on exam, tbili 3.3, AST,ALT and alk phos wnl (9) DM II (diabetes mellitus, type II), controlled: Plan: A1c 7.8 in Jun 2021. Repeat a1c ordered for AM Basal/bolus insulin while in-patient BSG AC HS (10) COPD (chronic obstructive pulmonary disease): Plan: Does not require O2 at baseline. Former smoker. Continue Anoro Ellipda, Albuterol inh PRN (11) Hypothyroidism: Plan: Continue levothyroxine DVT Ppx: SCDs for now given thrombocytopenia Code status: FULL (discussed with 2 brothers, who confirmed her wishes for full code. Attempted to contact daughter Melany (POElisa) by phone but unable to reach this evening. PCP: [place] Dispo: Admitted to PCU Patient seen in collaboration with Dr. Snigh. Please see addendum. History of Present Illness Chief Complaint: Confusion, unwitnessed fall at home Primary Care Provider: Guido Camarenamohan This is an 86yo F with a PMH of PAD s/p stent L subclavian, superior mesenteric artery, L iliac and fempop bypass, infrarenal AAA measuring 3.9 cm, HTN, HLD, CKD III, insulin dependent DM II, COPD, hypothyroidism, history of C. difficile in May 2021 and other medical problems as a below who presents after being found at her home on the floor by son earlier today. At baseline, patient is independent and lives alone. Has 2 sons and [id number] who are involved in care. Last spoke to her on the phone on Monday and she was in normal state of health. Called multiple times today to no answer, so son stopped by and found patient lying on the floor next to her bed covered with stool and urine. Noted to have significant confusion. Was unable to tell him about nature of fall. Knows who she is but answered other questions with jumbled words, which is very unusual for her. ROS unreliable due to confusion. Follows with Dr. Andrade in [place] for vascular surgery and Dr. Valera for primary care. Allergies Allergy/AdvReac Type Severity Reaction Status Date / Time amoxicillin Allergy Intermediate STOMACH Unverified 11/08/21 15:25 UPSET--PER [facility] 09/21/21 ENCOUNTER clavulanic acid Allergy Intermediate STOMACH Unverified 11/08/21 15:25 UPSET--PER [facility] 09/21/21 ENCOUNTER vitamin E (d-alpha Allergy Intermediate ITCHY Unverified 11/08/21 15:25 tocopherol) RASH, HIVES--PER [facility] 09/21/21 ENCOUNTER Home Medications Medication Instructions Recorded Confirmed Type albuterol sulfate 90 mcg/actuation 2 puff INHALATION Q4H PRN 04/10/19 11/08/21 History aerosol inhaler (Ventolin HFA) aspirin 81 mg tablet,delayed 81 mg PO QAM 04/10/19 11/08/21 History release (Aspirin Low Dose) atorvastatin 20 mg tablet 20 mg PO QAM 04/10/19 11/08/21 History carvedilol 6.25 mg tablet 6.25 mg PO BID 04/10/19 11/08/21 History clopidogrel 75 mg tablet 75 mg PO QAM 04/10/19 11/08/21 History levothyroxine 88 mcg tablet 88 mcg PO QAM 04/10/19 11/08/21 History losartan 50 mg tablet 50 mg PO HS 04/10/19 11/08/21 History ferrous sulfate 325 mg (65 mg 325 mg PO DAILY #30 tab 12/21/20 11/08/21 Rx iron) tablet (FeroSul) famotidine 40 mg tablet 40 mg PO HS 03/29/21 11/08/21 History lidocaine 4 % topical patch 1 patch TOPICAL DAILY 30 Days #30 03/31/21 11/08/21 Rx ea gabapentin 300 mg capsule 600 mg PO TID 11/08/21 11/08/21 History insulin degludec 200 unit/mL (3 15 unit SUBCUT QAM 11/08/21 11/08/21 History mL) subcutaneous pen (Tresiba FlexTouch U-200 insulin) ipratropium 0.5 mg-albuterol 3 mg 3 ml INHALATION DIRECTED 11/08/21 11/08/21 History (2.5 mg base)/3 mL nebulization soln potassium chloride 10 mEq 10 meq PO DAILY 11/08/21 11/08/21 History capsule,extended release sitagliptin 100 mg tablet (Januvia) 100 mg PO DAILY 11/08/21 11/08/21 History umeclidinium 62.5 mcg-vilanterol 1 inh INHALATION DAILY 11/08/21 11/08/21 History 25 mcg/actuation powdr for inhalation (Anoro Ellipta) Past Med/Surg History Medical History (Updated 11/08/21 @ 22:01 by Rachel Vieyra PA-C) Anemia Cirrhosis DM II (diabetes mellitus, type II), controlled Emphysema Epigastric abdominal pain HLD (hyperlipidemia) Hypothyroidism PAD (peripheral artery disease) Shortness of breath Surgical History History of appendectomy History of intravascular stent placement Reported Left subclavian, superior mesenteric artery, L iliac, L fempop bypass - Dr Andrade - [place] Family History Other Diabetes Hypertension Social History Smoking Status: Former smoker Hx Alcohol Use: No Hx Substance Use: No Preferred Language: Swedish Communication Ability: Effective 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 Physical Exam Physical Exam: General Appearance: WD/WN, vitals as above, disheveled appearance, confused, able to follow some commands Head: normocephalic, atraumatic Eyes: normal inspection, PERRL, conjunctivae normal, anicteric sclerae ENT: external ear and nose normal, oropharynx normal Neck: normal visual inspection, trachea midline, no thyromegaly Respiratory: normal respiratory effort, lungs clear to auscultation, no wheeze, rales, rhonchi. No accessory muscle use Cardiovascular: tachycardic rate, regular rhythm, no murmur, normal peripheral pulses, no BLE edema. Vessels: no JVD Chest: normal inspection of chest Abdomen/GI: normal bowel sounds, soft, TTP RUQ, no hepatosplenomegaly Extremities/Musculoskeletal: no cyanosis or clubbing, RUE and RLE 5/5, LUE 5/5, LLE 4/5 (chronic) Neurologic: PERRL, EOMI, accommodation nl, no face palsy, garbling words intermittently, CN's II-XI intact bilaterally and moves all extremities Psychiatric: Alert and oriented to person but not place or time. Skin: no rashes, normal color, warm/dry Results & Data Results & Data ([facility]) Vital Signs (Past 12 Hours) Vital Signs Pulse Pulse Resp BP BP Pulse Ox 11/08/21 19:00 91 H 26 H 92 11/08/21 18:30 94 H 49 H 95 11/08/21 18:00 103 H 92 11/08/21 17:31 171/63 H 88 L 11/08/21 17:30 90 11/08/21 17:10 96 H 25 H 125/47 L 92 11/08/21 17:09 25 H 93 11/08/21 17:00 98 H 94 11/08/21 16:38 93 H 93 H 36 H 125/47 L 125/47 L 94 11/08/21 16:30 93 H 29 H 95 11/08/21 16:24 140/37 L 11/08/21 16:23 92 H 23 140/37 L 95 11/08/21 16:21 93 H 25 H 102/59 L 95 11/08/21 16:16 96 H 24 94 11/08/21 16:09 96 H 24 163/112 H 93 11/08/21 16:00 96 H 34 H 94 11/08/21 15:49 92 11/08/21 15:27 96 H 35 H 163/112 H 93 11/08/21 15:24 93 11/08/21 15:19 105 H 25 H 91 11/08/21 15:18 25 H 91 11/08/21 15:13 106 H 23 187/86 H 84 L 11/08/21 15:11 106 H 24 187/86 H 91 11/08/21 15:00 105 H 17 93 11/08/21 14:54 103 H 25 H 187/86 H 94 11/08/21 14:43 112 H 19 94 Laboratory Results Short CBC 11/08/21 Range/Units 14:50 WBC 22.27 H (4.8-10.8) K/uL Hgb 12.0 (12.0-16.0) g/dL Hct 37.4 (37-47) % Plt Count 101 L (130-400) K/uL BMP 11/08/21 11/08/21 14:50 16:15 Sodium Cancelled 143 Potassium Cancelled 3.3 L Chloride Cancelled 114 H Carbon Dioxide Cancelled 17 L BUN Cancelled 43 H Creatinine Cancelled 1.36 H Glucose Cancelled 111 H Calcium Cancelled 9.4 Cardiac Enzymes 11/08/21 11/08/21 Range/Units 14:50 16:15 Total Creatine Kinase Cancelled 328 H CK-MB (CK-2) Cancelled Troponin I Cancelled 0.033 Liver Function 11/08/21 11/08/21 Range/Units 14:50 16:15 Total Bilirubin Cancelled 3.3 H Direct Bilirubin Cancelled AST Cancelled 34 ALT Cancelled 31 Alkaline Phosphatase Cancelled 78 D Albumin Cancelled 2.7 L Urine 11/08/21 Range/Units 16:00 Urine Color Dark Yellow Urine Appearance Cloudy A (Clear) Urine pH 5.0 (4.5-7.5) Ur Specific [place] 1.022 (1.000-1.030) Urine Protein 3+ H (Negative) Urine Glucose (UA) Negative (Negative) Diagnostic Findings Cervical Spine CT 11/08/21 14:38 CT cervical spine wo con CLINICAL HISTORY: 86 years-old Female with fall. Acute head and neck injury status post fall COMPARISON: Head CT of same day TECHNIQUE: Multiple axial CT images of the cervical spine were obtained without contrast. A dose lowering technique was utilized adhering to the principles of ALARA. FINDINGS: Demineralized appearance of the bones. Grade 1 anterolisthesis C3 on C4, C4 on C5, C7 on T1, and T1 on T2 is likely degenerative. Severe degeneration at C1-C2. Multilevel intervertebral disc space narrowing, severe at C5-C6 and C6 or C7. Severe multilevel facet arthrosis. Nuchal ligament calcifications. Multilevel neural foraminal narrowing. No acute fracture or subluxation. Left subclavian endograft. Biapical pleural-parenchymal scarring. Unremarkable soft tissues. There is no prevertebral edema. Calcified plaque of the carotid arteries. Volume loss with partial opacification of the left maxillary sinus. IMPRESSION: No acute cervical spine fracture or subluxation. ACT 112: Negative or not required by law. The above report was generated using voice recognition software. It may contain grammatical, syntax or spelling errors. Electronically signed by: Hector Talamantes M.D. 11/08/2021 4:[address] 11/08/21 14:38 CT head/brain wo con CLINICAL HISTORY: fall Technique: Contiguous axial CT images of the head were acquired from the base of the skull to the vertex without intravenous contrast administration. Images were viewed in brain, subdural and bone windows. Automated dose lowering techniques and/or adjustment according to patient size were utilized for this exam. Comparison: None available at the time of this dictation. Findings: The ventricles, basal cisterns, and cerebral sulci are normal. There is no acute intracranial hemorrhage or evidence of acute territorial infarction. Neither mass effect, shift of the midline structures, nor abnormal extra-axial fluid collections are shown. Imaged portions of the paranasal sinuses and mastoid air cells are clear. The orbits appear normal. There are no acute fractures of the calvaria or scalp swelling. Impression: No acute intracranial hemorrhage, no evidence of acute territorial infarction or other acute intracranial disease process. ACT 112: Negative or not required by law. Electronically signed by: Ayden Patterson M.D. 11/08/2021 4:01 PM Chest X-Ray 11/08/21 14:39 XR chest 1V portable HISTORY: 86 years-old Female SEPSIS acute sepsis COMPARISON: Chest radiograph 03/29/2021 TECHNIQUE: Supine AP view of the chest FINDINGS: Cardiac silhouette is upper limits of normal in size. Calcified plaque the thoracic aorta. Vascular graft the left subclavian distribution redemonstrated. No pneumothorax or large pleural effusion. Asymmetric right hilar prominence. Dense airspace consolidation of the right lung base and right midlung. The left lung is clear. Degenerative changes of the shoulders and spine. IMPRESSION: 1. Dense airspace consolidation of the right midlung and right lung base is suggestive of pneumonia. Follow-up imaging to document resolution is needed. 2. Asymmetric right hilar prominence may represent associated adenopathy. ACT 112: Negative or not required by law. The above report was generated using voice recognition software. It may contain grammatical, syntax or spelling errors. Electronically signed by: Hector Talamantes M.D. 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 Patient is slightly rotated. No acute fracture, dislocation or avascular necrosis. Left iliac vascular stents. Surgical clips of the left inguinal region. IMPRESSION: No acute fracture. ACT 112: Negative or not required by law. The above report was generated using voice recognition software. It may contain grammatical, syntax or spelling errors. Electronically signed by: Hector Talamantes M.D. 11/08/2021 3:[address] 11/08/21 15:36 CT chest diagnostic wo con CLINICAL HISTORY: right sided mass TECHNIQUE: Multidetector row helical CT of the chest was performed. Coronal and sagittal reformations were obtained. Automated dose lowering techniques and/or adjustment according to patient size were utilized for this exam. Comparison: Comparison is made to CT chest 12/16/2020 FINDINGS: Lungs and pleura: There is consolidative opacity at the right lower lobe without significant volume loss. Biapical scarring is seen. Heart and pericardium: Heart size is normal. No pericardial effusion. Vessels: Severe atherosclerotic changes in the aorta and coronary arteries. Mediastinum and didier: Subcentimeter lymph nodes are seen. Chest wall and lower neck: Unremarkable. Abdomen: Cirrhotic morphology of the liver is noted. Bones: Degenerative changes in the thoracic spine. Compression fractures of T6 and T10 are progressed from prior exam. IMPRESSION: 1. Right lower lobe consolidative opacities concerning for pneumonia and/or aspiration. 2. Severe atherosclerotic disease. 3. Compression deformities in the thoracic spine which increased from prior exam. ACT 112: Negative or not required by law. Electronically signed by: Ayden Patterson M.D. 11/08/2021 3:57 PM Code Status & VTE Plan VTE Prophylaxis Plan VTE Prophylaxis will be ordered: Yes Supervising Physician Co-Signing Physician Notes I have seen and examined the patient and have discussed the case with the provider above. I agree with the assessment and plan as stated. 86 yo F with acute metabolic encephalopathy, likely related to UTI and/or pna. Sepsis present, cont resuscitation efforts and trend lactate overnight. Cont broad spectrum antibiotics This patient was confused and confabulating when I attempted to speak with her. Therefore, ROS was unobtainable. No gross focal d eficits can be seen. Physical reveals a WNWD female who is ill appearing but in no acute distress. Lungs clear but limited exam as patient unable to follow instructions. PERRL, mucous membranes appear dry, cardiac auscultation reveals S1/2 without m/g/r. No peripheral edema and extremities are warm and well perfused. Neuro exam is grossly nonfocal with delirium present. Alert but unable to follow instructions. Cont with sepsis resuscitation efforts overnight and monitor clinical response and cultures which are pending. DO Francisco (1) Pneumonia Laterality: right Lung location: unspecified part of lung Pneumonia type: due to unspecified organism Qualified Code(s): J18.9 - Pneumonia, unspecified organism
[2021-11-08] MEDS ORDERED: VANCOMYCIN CONSULT ACTIVE PRN (20:32)
[2021-11-08] MEDS ORDERED: VANCOMYCIN HCL 1,250 MG in SODIUM CHLORIDE 0.9% 250 ML IV ONE (20:45)
[2021-11-08] MEDS: PIPERACILLIN/TAZOBACTAM 3.375 GM in DEXTROSE 5% 100 ML IV SCH (21:33)
[2021-11-08] MEDS ORDERED: GLUCOSE 10 TABS/TUBE PO PRN (22:18)
[2021-11-08] MEDS ORDERED: GLUCOSE 40% GEL 15 GM TUBE PO PRN (22:18)
[2021-11-08] MEDS ORDERED: PHARMACY GLYCEMIC MGMT CONSULT PRN (22:18)
[2021-11-08] MEDS ORDERED: GLUCAGON FOR INJ 1 MG VIAL SQ PRN (22:18)
[2021-11-08] MEDS ORDERED: CARBOHYDRATES FOR HYPOGLYCEMIA PO PRN (22:18)
[2021-11-08] MEDS ORDERED: DEXTROSE 50% 50 ML SYRINGE IV PRN (22:18)
[2021-11-08] MEDS ORDERED: POTASSIUM CHLORIDE 40 MEQ in SODIUM CHLORIDE 0.9% 1000ML 1,000 ML IV SCH (22:30)
[2021-11-08] MEDS ORDERED: ONDANSETRON INJ 2 MG/ML 2 ML VIAL IV PRN (22:38)
[2021-11-08] MEDS ORDERED: ALBUT/IPRATROP 3MG/0.5MG NEB 3 ML VIAL INH PRN (22:38)
[2021-11-08] MEDS ORDERED: ALBUTEROL HFA 8 GM INHALER INH PRN (22:38)
[2021-11-08] MEDS ORDERED: POLYETHYLENE (MIRALAX) 17 GM PACK PO PRN (22:38)
[2021-11-08] MEDS ORDERED: POTASSIUM CHLORIDE 40 MEQ in SODIUM CHLORIDE 0.45 % 1,000 ML IV SCH (23:45)
[2021-11-09] MEDS ORDERED: methylPREDNISolone 40 MG in SYRINGE 0 ML IV STA (01:28)
[2021-11-09] MEDS ORDERED: XOPENEX/ATROVENT 1.25mg/0.5MG NEB COMBO NEB STA (01:31)
[2021-11-09] MEDS ORDERED: LEVALBUTEROL 1.25MG/0.5ML NEB INH STA (01:34)
[2021-11-09] MEDS ORDERED: IPRATROPIUM BROMIDE NEB SOLN 0.02% 2.5 ML VIAL INH STA (01:34)
[2021-11-09 01:44] LABS: Mean Corpuscular Hgb Conc 32.4 g/dL (32-36)
[2021-11-09] MEDS ORDERED: MAGNESIUM SULFATE / D5W 1 GM/100 ML BAG IV ONE (01:45)
[2021-11-09 02:00] LABS: Hematocrit (blood only) 35.2 % (37-47); Hemoglobin 11.4 g/dL (12.0-16.0); Mean Corpuscular Hemoglobin 27.5 pg (25-34); RDW Coefficient of Variation 22.5 % (11.5-14.5); RDW Standard Deviation 69.1 fL (36.4-46.3); Red Blood Count 4.14 M/uL (4.2-5.4); White Blood Count 15.03 K/uL (4.8-10.8)
[2021-11-09 02:09] LABS: Albumin Globulin Ratio 0.6 (0.9-2); Albumin Level 2.5 gm/dl (3.4-5.0); BUN Creatinine Ratio 29.8 (10-20); Bilirubin,Total 3.6 mg/dl (0.2-1); Creatinine Clr Calc Pharmacy 22.3 ml/min; Est GFR (African American) 35.6 ml/min; Est GFR (Non-African American) 30.7 ml/min; Globulin 4.1 gm/dl (2.5-4.0); Potassium 3.8 mmol/L (3.5-5.1); Total Protein 6.6 gm/dl (6.4-8.2)
[2021-11-09 02:11] LABS: Mean Platelet Volume 10.9 fL (7.4-10.4); Platelet Count 89 K/uL (130-400)
[2021-11-09 02:12] LABS: Platelet Estimate Decreased (Normal)
[2021-11-09] MEDS ORDERED: METOPROLOL TARTRATE 1 MG/ML VIAL IV STA (02:42)
[2021-11-09] MEDS ORDERED: XOPENEX/ATROVENT 1.25mg/0.5MG NEB COMBO NEB PRN (02:43)
[2021-11-09] MEDS ORDERED: LEVALBUTEROL 1.25MG/0.5ML NEB INH PRN (02:45)
[2021-11-09] MEDS ORDERED: IPRATROPIUM BROMIDE NEB SOLN 0.02% 2.5 ML VIAL INH PRN (02:45)
[2021-11-09] MEDS: PIPERACILLIN/TAZOBACTAM 3.375 GM in DEXTROSE 5% 100 ML IV SCH (06:16)
[2021-11-09] MEDS: LEVOTHYROXINE SODIUM 88 MCG TABLET PO SCH (06:30)
--- NOTE | 2021-11-09 07:06 | Ultrasound Report ---
ULTRASOUND RIGHT UPPER QUADRANT ABDOMEN CLINICAL HISTORY: Right upper quadrant abdominal pain. Cirrhosis.. COMPARISON STUDY: Abdominal CT dated 03/29/2021. TECHNIQUE: Real-time, grayscale, and color flow sonography of the right upper quadrant of the abdomen was performed. Images are reviewed in the transverse and longitudinal planes. FINDINGS: Liver: The liver is cirrhotic in morphology and heterogeneous in echotexture. There is nodularity of the hepatic surface contour. There is no intrahepatic biliary ductal dilatation. The main portal vein is patent. Gallbladder: The gallbladder is mildly distended. Shadowing gallstones are noted. The gallbladder wal l is top normal in thickness measuring up to 3 mm. Trace pericholecystic fluid is noted. A sonographi c Pitts's sign is reportedly absent. The common bile duct measures up to 0.4 cm in diameter. Pancreas: Visualized portions of the pancreatic head are normal in appearance. The majority of the pa ncreas was not visualized due to overlying bowel gas. Right kidney: Survey images of the right kidney demonstrate cortical atrophy. There is no hydronephro sis. Ascites: None. IMPRESSION: 1. Cholelithiasis within a distended gallbladder. There is no convincing sonographic evidence of acut e cholecystitis. If there is strong clinical concern a nuclear hepatobiliary scan should be considere d. 2. The gallbladder wall is top normal in thickness, likely related to adjacent hepatocellular disease . 3. Cirrhotic liver morphology. ACT 112: Negative or not required by law. Electronically signed by: Luis Peña M.D. 11/09/2021 7:05 AM
[2021-11-09 07:22] LABS: Estimated Average Glucose 223 mg/dl; Hemoglobin A1C 9.4 % (4.5-5.6)
--- NOTE | 2021-11-09 07:24 | XRay Report ---
XR chest 1V portable CLINICAL HISTORY: pneumonia TECHNIQUE: Single frontal radiograph of the chest was obtained. Comparison: Comparison is made to CT chest 11/08/2021 FINDINGS: Left subclavian stent is unchanged. Calcified aortic knob is seen. Lungs are underinflated. There is interval increase in left lower lung airspace opacity. No pneumothorax is seen. A left effusion canno t be entirely excluded although no effusion was seen on prior exam. IMPRESSION: Stability to mild increase in right lower lung airspace opacity. ACT 112: Negative or not required by law. Electronically signed by: Ayden Patterson M.D. 11/09/2021 7:23 AM
[2021-11-09] MEDS ORDERED: GABAPENTIN 600 MG TAB PO SCH (09:00)
[2021-11-09] MEDS: INSULIN ASPART PER UNIT SC SCH ×4 (09:15→20:56)
[2021-11-09] MEDS: CEFEPIME 1,000 MG in SYRINGE 0 ML IV SCH ×2 (09:43→20:47)
[2021-11-09] MEDS: UMECLIDINIUM/VILANTEROL 62.5/25MCG 7 PUFFS/INHALER INH SCH (09:45)
[2021-11-09] MEDS: POTASSIUM CHLORIDE 10 MEQ TABCR PO SCH (09:47)
[2021-11-09] MEDS: FERROUS SULFATE 325 MG TAB PO SCH (09:47)
[2021-11-09] MEDS: CLOPIDOGREL BISULFATE 75 MG TAB PO SCH (09:47)
[2021-11-09] MEDS: ASPIRIN 81 MG ECTAB PO SCH (09:47)
[2021-11-09] MEDS: ATORVASTATIN 20 MG TAB PO SCH (09:47)
[2021-11-09] MEDS: carvediloL 6.25 MG TAB PO SCH ×2 (09:47→20:47)
[2021-11-09] MEDS: LIDOCAINE 5% 1 PATCH TD SCH (09:55)
[2021-11-09] MEDS: INSULIN GLARGINE SOLOSTAR 100 UNITS/ML 3 ML PEN SC SCH ×2 (10:02→20:56)
[2021-11-09] MEDS ORDERED: OPTIRAY 320 100ml IV ONE (11:37)
--- NOTE | 2021-11-09 11:38 | Electrocardiogram Report ---
Test Reason : Blood Pressure : / mmHG Vent. Rate : 104 BPM Atrial Rate : 104 BPM P-R Int : 216 ms QRS Dur : 102 ms QT Int : 334 ms P-R-T Axes : 085 -39 090 degrees QTc Int : 439 ms Sinus tachycardia with 1st degree A-V block Left atrial enlargement Left axis deviation Incomplete right bundle branch block Septal infarct (cited on or before 02-JUL-2021) Abnormal ECG When compared with ECG of 02-JUL-2021 15:02, Vent. rate has increased BY 40 BPM Incomplete right bundle branch block is now Present Questionable change in initial forces of Septal leads Confirmed by Evans Washington ([id number]) on 11/09/2021 11:38:43 AM Referred By: Confirmed By:Evans Washington
--- NOTE | 2021-11-09 12:06 | CT Scan Report ---
CT SCAN OF THE ABDOMEN AND PELVIS WITH IV CONTRAST CLINICAL HISTORY: Right lower quadrant abdominal pain. COMPARISON STUDY: Abdominal CT dated 03/29/2021. TECHNIQUE: Following the IV administration of 95 cc of Optiray 320, CT scan of the abdomen and pelvi s is performed from the lung bases to the proximal femora. Images are reviewed in the axial, sagittal , and coronal planes. IV contrast was administered without complication. A dose lowering technique wa s utilized adhering to the principles of ALARA. The Examination is degraded by motion artifact, as we ll as by streak artifact from the arms which could not be elevated above the abdomen. CT DOSE: 604.39 mGy.cm FINDINGS: Lung bases: The heart is mildly enlarged and without pericardial effusion. The coronary arteries are densely calcified. There is dense airspace consolidation throughout the right lower lobe. Atelectasis /consolidation is also seen in the lingula. Dependent atelectasis is noted on the left. No pleural ef fusion is identified. A small hiatal hernia is noted. Esophageal varices are identified. Liver: The contrast-enhanced liver is cirrhotic in morphology and heterogeneous in attenuation. There is nodularity of the hepatic surface contour and hypertrophy of the left lobe. There is no intrahepa tic biliary ductal dilatation. The hepatic veins and portal veins are patent. Gallbladder: The gallbladder is distended, and there are calcified gallstones in the region of the ga llbladder neck. There is mild pericholecystic infiltration. Spleen: The spleen is enlarged measuring 15.2 cm in length. Pancreas: Unremarkable. Adrenal glands: The adrenal glands appear hyperemic. Kidneys: The contrast enhanced kidneys are atrophic and without hydronephrosis. The kidneys enhance s ymmetrically. A 3.5 cm cyst is noted on the left. Abdominal vasculature: There is advanced atherosclerotic calcification of the abdominal aorta. An inf rarenal abdominal aortic aneurysm measures 3.6 x 3.8 cm (AP x transverse). Stents are noted in the hall perior mesenteric artery and the left external iliac artery. Bowel: There is mild to moderate colonic diverticulosis without CT evidence of acute diverticulitis. No bowel obstruction is seen. Wall thickening and pericolonic infiltration is suggested involving the right colon. The appendix is not visualized. Peritoneum: Typical for pneumonia. There is trace perisplenic ascites, trace free fluid in the left p aracolic gutter, and a small volume of Pelvic ascites. No intraperitoneal free air is identified. Lymphadenopathy: None. Pelvic viscera: The bladder is decompressed around a Garza catheter and not well evaluated. The endom etrium appears thickened for age measuring up to 1.5 cm. Fibroids are suggested. No adnexal lesion is seen. Skeletal structures: The skeletal structures are osteopenic. There is a mild acute to subacute inferi or endplate compression fracture of T10. Mild to moderate lumbosacral spondylosis is observed. No lyt ic or blastic lesions are seen. IMPRESSION: 1. Streak and motion compromised examination. 2. There is dense airspace consolidation throughout the right lower lobe typical for pneumonia. 3. The gallbladder is distended and there are calcified gallstones in the region of the gallbladder n ivette. There is mild pericholecystic infiltration. Correlate with clinical and laboratory findings for evidence of acute cholecystitis. Right upper quadrant ultrasound could be considered for further asse ssment. 4. There is an acute to subacute inferior endplate compression fracture of T10. 5. The liver is cirrhotic in morphology and heterogeneous in attenuation. 6. Esophageal varices, a small volume of abdominopelvic ascites, and splenomegaly indicate portal hyp ertension. 7. There is wall thickening of the right colon with mild pericolonic infiltration. This could represe nt portal colopathy versus a nonspecific colitis. Clinical correlation will be required. 8. There is a 3.6 x 3.8 cm infrarenal abdominal aortic aneurysm. 9. The endometrium is abnormally thickened for age measuring up to 15 mm. This is not well evaluated by CT. Nonemergent pelvic ultrasound and gynecology evaluation is recommended for further assessment. 10. Additional findings as above. ACT 112: Positive. There are findings on this exam that require communication between the performing entity and the patient following Patient Test Result Information Act ([place] Act 112) guidelines. Electronically signed by: Luis Peña M.D. 11/09/2021 12:05 PM
--- NOTE | 2021-11-09 12:15 | Hospitalist Progress Note ---
Date of Service November 09, 2021 Assessment & Plan (1) Acute metabolic encephalopathy: Plan: appears to be resolved, likely related to sepsis (2) Abdominal pain: Plan: Right upper quadrant pain last night which appears to be improved today followed by left lower quadrant pain today. Abdomen is protuberant but not distended. In setting of cirrhosis and recent sepsis, additional evaluation with CT abdomen pelvis with IV contrast was performed. This revealed distended gallbladder with calcified gallstones in the region of the gallbladder neck. Consulted gastroenterology and general surgery for further recommendations. Additional findings included esophageal varices with a small volume of abdominal pelvic ascites and splenomegaly indicating portal hypertension is present. There is also wall thickening of the right colon with mild pericolic infiltration which could present a nonspecific colitis. She continues on antibiotics and would appreciate gastroenterology thoughts on this. Endometrium is abnormally thickened for age which will be not emergently evaluated with a pelvic ultrasound and [employer] evaluation as outpatient. Cont abx and followup specialty recommendations. (3) Hypoxia: Plan: 2/2 pneumonia. Cont current antibiotics including Vanc and cefepime pending culture results. Pulmonary toilet efforts with incentive spirometer and flutter valve as tolerated. When able ok to ambulate with assistance. Wean oxygen as tolerated. (4) Sepsis: Plan: Leukocytosis improved, potassium improved after replacement. Overall mental status improved and she remains afebrile. With expected hypoxia currently 93% on 6 L/min via nasal cannula. Mental status is oriented but she is not well enough to jump out of bed yet. Continue broad-spectrum antibiotics pending sputum blood and urine culture results which are starting to return. (5) Pneumonia: Plan: Covid, flu A/B, RSV PCR negative, hypoxia as above. CT chest with right lower lobe consolidative opacities concerning for pneumonia and/or aspiration. Started on vanc and Zosyn. Out of concerns for EARL, changed Zosyn to cefepime. Consider adding flagyl if no improvement. Oxygen supplementation, wean as tolerated. Speech evaluation requested out of concern for possible aspiration. (6) Fall: Plan: Patient remembers falling out of her bed -likely related to weakness in setting of metabolic encephalopathy which is now clearing. Min CK elevation expected. Likely improved after IVF resuscitation. CT head, cervical spine CT, chest CT, pelvic XR without evidence of acute trauma or fracture. Cont with Fall precautions, PT OT evaluation (7) Acute kidney injury superimposed on chronic kidney disease: Plan: Cr elevated at 1.36 (baseline ~ 0.9) in setting of dehydration and sepsis. Slightly progressed to 1.5, but this is not unexpected. Cont with IVF periodically and repeat BMP in am. (8) PAD (peripheral artery disease): Plan: chronic, stable. S/p stent L subclavian, superior mesenteric artery, L iliac and fempop bypass Follows with Dr. Andrade of vascular surgery in [place] Continue aspirin, plavix, statin (9) Cirrhosis: Plan: Diagnosed in January 2021, [place] Last abdominal us in April 2017 with cholelithiasis without cholecystitis, hepatic cirrhosis Some initial TTP in RUQ which is not present today prompted RUQ us. This re veals Cholelithiasis and a distended gallbladder with no convincing evidence of cholecystitis. Cirrhotic liver morphology is 3 demonstrated. Persistent abdominal pain today prompted CT a/p with IV contrast today. Results as above. Appreciate GI thoughts. (10) DM II (diabetes mellitus, type II), controlled: Plan: A1c 9.4 reflecting poor overall control. Cont basal/bolus insulin while in- patient. BSG AC HS (11) COPD (chronic obstructive pulmonary disease): Plan: chronic, stable-no wheezing. Does not require O2 at baseline. Former smoker. Continue Anoro Ellipda, Albuterol inh PRN (12) Hypothyroidism: Plan: Continue levothyroxine per home regimen. (13) Thickened endometrium: Plan: Esophageal varices with a small volume of abdominal pelvic ascites and splenomegaly indicating portal hypertension is present. There is also wall thickening of the right colon with mild pericolic infiltration which could present a nonspecific colitis. She continues on antibiotics and would appreciate gastroenterology thoughts on this. Endometrium is abnormally thickened for age which will be not emergently evaluated with a pelvic ultrasound and [employer]ER evaluation as outpatient. (14) Aneurysm of infrarenal abdominal aorta: Plan: incidental finding on CT scan. Follow-up as outpatient for monitoring. (15) DVT prophylaxis: Plan: DVT Ppx: SCDs for now given thrombocytopenia Code status: FULL Dispo-cont PCU, discussed case with Melany, her daughter who is fine with her plan for now and will let me know if there are any further wishes to attempt to transfer her to another facility which was an initial request. Surekha Singh DO [facility] and [facility]tic[facility]ated Discharge Date Admission Date: November 08, 2021 Subjective 86-year-old female presented with acute metabolic encephalopathy secondary to pneumonia and urinary tract infection She is improved today and is mentating closer to her baseline. She is oriented. She denies any pain however there was pain on her left lower quadrant in her abdomen. She reports no history of pain. She also reports not feeling ill prior to becoming sick. She has no history of coughing fevers or chills leading up to this event. She also denies any dysuria or other urinary tract symptoms. I spoke with daughter by phone and she corroborates this and states mom was healthy for the holidays and feeling well. I discussed the case and the care plan with her daughter who verbalized understanding and all questions were answered to her satisfaction. Review of Systems Review of Systems: All systems were reviewed and negative except as indicated above. Physical Exam Physical Exam: CONSTITUTIONAL: WNWD, vitals as above, generally NAD EYES: pupils are round and equal bilaterally, normal conjunctivae, no scleral icterus ENT: external ear and nose normal, producing thick green sputum while talking NECK: trachea midline RESPIRATORY: clear to auscultation bilaterally, no crackles, rales or wheezes, normal respiratory effort CARDIOVASCULAR: regular rate and rhythm, S1 and 2 heard without murmurs, gallops or rubs, no JVD, no peripheral edema GASTROINTESTINAL: soft, protuberant but nondistended, LLQ pain and slight guarding. MUSCULOSKELETAL: strength 5/5 throughout, head is normocephalic and atraumatic SKIN: warm and dry NEUROLOGIC: CN 2-12 grossly intact, no sensory deficit, normal cognition, normal speech, no tremor, no gross focal deficits. PSYCHIATRIC: alert cooperative and oriented to person, place and time. Results & Data Results & Data ([facility]) Vital Signs (Past 12 Hours) Vital Signs Pulse Resp BP Pulse Ox 11/09/21 07:00 82 20 135/61 93 11/09/21 06:00 87 29 H 123/58 L 96 11/09/21 05:00 85 29 H 118/41 L 91 11/09/21 03:30 141/58 H 11/09/21 03:03 90 27 H 131/50 L 92 11/09/21 02:02 108 H 27 H 171/56 H 95 11/09/21 01:59 109 H 25 H 93 11/09/21 01:00 99 H 30 H 138/46 L 92 11/09/21 00:48 32 H 92 Laboratory Results Short CBC 11/08/21 11/09/21 Range/Units 14:50 01:36 WBC 22.27 H 15.03 H (4.8-10.8) K/uL Hgb 12.0 11.4 L (12.0-16.0) g/dL Hct 37.4 35.2 L (37-47) % Plt Count 101 L 89 L (130-400) K/uL BMP 11/08/21 11/08/21 11/09/21 14:50 16:15 01:36 Sodium Cancelled 143 144 Potassium Cancelled 3.3 L 3.8 D Chloride Cancelled 114 H 116 H Carbon Dioxide Cancelled 17 L 18 L BUN Cancelled 43 H 46 H Creatinine Cancelled 1.36 H 1.53 H Glucose Cancelled 111 H 111 H Calcium Cancelled 9.4 9.0 Cardiac Enzymes 11/08/21 11/08/21 Range/Units 14:50 16:15 Total Creatine Kinase Cancelled 328 H CK-MB (CK-2) Cancelled Troponin I Cancelled 0.033 Liver Function 11/08/21 11/08/21 11/09/21 Range/Units 14:50 16:15 01:36 Total Bilirubin Cancelled 3.3 H 3.6 H Direct Bilirubin Cancelled AST Cancelled 34 39 H ALT Cancelled 31 28 Alkaline Phosphatase Cancelled 78 D 60 Albumin Cancelled 2.7 L 2.5 L Urine 11/08/21 Range/Units 16:00 Urine Color Dark Yellow Urine Appearance Cloudy A (Clear) Urine pH 5.0 (4.5-7.5) Ur Specific [place] 1.022 (1.000-1.030) Urine Protein 3+ H (Negative) Urine Glucose (UA) Negative (Negative) Diagnostic Findings Liver Ultrasound 11/08/21 22:38 ULTRASOUND RIGHT UPPER QUADRANT ABDOMEN CLINICAL HISTORY: Right upper quadrant abdominal pain. Cirrhosis.. COMPARISON STUDY: Abdominal CT dated 03/29/2021. TECHNIQUE: Real-time, grayscale, and color flow sonography of the right upper quadrant of the abdomen was performed. Images are reviewed in the transverse and longitudinal planes. FINDINGS: Liver: The liver is cirrhotic in morphology and heterogeneous in echotexture. There is nodularity of the hepatic surface contour. There is no intrahepatic biliary ductal dilatation. The main portal vein is patent. Gallbladder: The gallbladder is mildly distended. Shadowing gallstones are noted. The gallbladder wall is top normal in thickness measuring up to 3 mm. Trace pericholecystic fluid is noted. A sonographic Pitts's sign is reportedly absent. The common bile duct measures up to 0.4 cm in diameter. Pancreas: Visualized portions of the pancreatic head are normal in appearance. The majority of the pancreas was not visualized due to overlying bowel gas. Right kidney: Survey images of the right kidney demonstrate cortical atrophy. There is no hydronephrosis. Ascites: None. IMPRESSION: 1. Cholelithiasis within a distended gallbladder. There is no convincing sonographic evidence of acute cholecystitis. If there is strong clinical concern a nuclear hepatobiliary scan should be considered. 2. The gallbladder wall is top normal in thickness, likely related to adjacent hepatocellular disease. 3. Cirrhotic liver morphology. ACT 112: Negative or not required by law. Electronically signed by: Luis Peña M.D. 11/09/2021 7:05 AM Chest X-Ray 11/09/21 07:00 XR chest 1V portable CLINICAL HISTORY: pneumonia TECHNIQUE: Single frontal radiograph of the chest was obtained. Comparison: Comparison is made to CT chest 11/08/2021 FINDINGS: Left subclavian stent is unchanged. Calcified aortic knob is seen. Lungs are underinflated. There is interval increase in left lower lung airspace opacity. No pneumothorax is seen. A left effusion cannot be entirely excluded although no effusion was seen on prior exam. IMPRESSION: Stability to mild increase in right lower lung airspace opacity. ACT 112: Negative or not required by law. Electronically signed by: Ayden Patterson M.D. 11/09/2021 7:23 AM Abdomen/Pelvis CT 11/09/21 10:25 CT SCAN OF THE ABDOMEN AND PELVIS WITH IV CONTRAST CLINICAL HISTORY: Right lower quadrant abdominal pain. COMPARISON STUDY: Abdominal CT dated 03/29/2021. TECHNIQUE: Following the IV administration of 95 cc of Optiray 320, CT scan of the abdomen and pelvis is performed from the lung bases to the proximal femora. Images are reviewed in the axial, sagittal, and coronal planes. IV contrast was administered without complication. A dose lowering technique was utilized adhering to the principles of ALARA. The Examination is degraded by motion artifact, as well as by streak artifact from the arms which could not be elevated above the abdomen. CT DOSE: 604.39 mGy.cm FINDINGS: Lung bases: The heart is mildly enlarged and without pericardial effusion. The coronary arteries are densely calcified. There is dense airspace consolidation throughout the right lower lobe. Atelectasis/consolidation is also seen in the lingula. Dependent atelectasis is noted on the left. No pleural effusion is identified. A small hiatal hernia is noted. Esophageal varices are identified. Liver: The contrast-enhanced liver is cirrhotic in morphology and heterogeneous in attenuation. There is nodularity of the hepatic surface contour and hypertrophy of the left lobe. There is no intrahepatic biliary ductal dilatation. The hepatic veins and portal veins are patent. Gallbladder: The gallbladder is distended, and there are calcified gallstones in the region of the gallbladder neck. There is mild pericholecystic infiltration. Spleen: The spleen is enlarged measuring 15.2 cm in length. Pancreas: Unremarkable. Adrenal glands: The adrenal glands appear hyperemic. Kidneys: The contrast enhanced kidneys are atrophic and without hydronephrosis. The kidneys enhance symmetrically. A 3.5 cm cyst is noted on the left. Abdominal vasculature: There is advanced atherosclerotic calcification of the abdominal aorta. An infrarenal abdominal aortic aneurysm measures 3.6 x 3.8 cm (AP x transverse). Stents are noted in the superior mesenteric artery and the left external iliac artery. Bowel: There is mild to moderate colonic diverticulosis without CT evidence of acute diverticulitis. No bowel obstruction is seen. Wall thickening and pericolonic infiltration is suggested involving the right colon. The appendix is not visualized. Peritoneum: Typical for pneumonia. There is trace perisplenic ascites, trace free fluid in the left paracolic gutter, and a small volume of Pelvic ascites. No intraperitoneal free air is identified. Lymphadenopathy: None. Pelvic viscera: The bladder is decompressed around a Garza catheter and not well evaluated. The endometrium appears thickened for age measuring up to 1.5 cm. Fibroids are suggested. No adnexal lesion is seen. Skeletal structures: The skeletal structures are osteopenic. There is a mild acute to subacute inferior endplate compression fracture of T10. Mild to moderate lumbosacral spondylosis is observed. No lytic or blastic lesions are seen. IMPRESSION: 1. Streak and motion compromised examination. 2. There is dense airspace consolidation throughout the right lower lobe typical for pneumonia. 3. The gallbladder is distended and there are calcified gallstones in the region of the gallbladder neck. There is mild pericholecystic infiltration. Correlate with clinical and laboratory findings for evidence of acute cholecystitis. Right upper quadrant ultrasound could be considered for further assessment. 4. There is an acute to subacute inferior endplate compression fracture of T10. 5. The liver is cirrhotic in morphology and heterogeneous in attenuation. 6. Esophageal varices, a small volume of abdominopelvic ascites, and splenomegaly indicate portal hypertension. 7. There is wall thickening of the right colon with mild pericolonic infiltration. This could represent portal colopathy versus a nonspecific colitis. Clinical correlation will be required. 8. There is a 3.6 x 3.8 cm infrarenal abdominal aortic aneurysm. 9. The endometrium is abnormally thickened for age measuring up to 15 mm. This is not well evaluated by CT. Nonemergent pelvic ultrasound and gynecology ev aluation is recommended for further assessment. 10. Additional findings as above. ACT 112: Positive. There are findings on this exam that require communication between the performing entity and the patient following Patient Test Result Information Act ([place] Act 112) guidelines. Electronically signed by: Luis Peña M.D. 11/09/2021 12:05 PM Medications Administered Current Inpatient Medications Acetaminophen (Acetaminophen 325 Mg Tab) 650 mg PO Q4H PRN PRN Reason: Pain or Fever Stop: 12/08/21 22:37 Albuterol (Albuterol Hfa 8 Gm Inhaler) 2 puffs INH Q4H PRN PRN Reason: Wheezing Stop: 12/08/21 22:37 Aspirin (Aspirin 81 Mg Ectab) [facility] [place] Stop: 12/09/21 08:59 Last Admin: 11/09/21 09:47 Dose: 81 mg Documented by: Atorvastatin Calcium (Atorvastatin 20 Mg Tab) 20 mg PO QAM [facility] Stop: 12/09/21 08:59 Last Admin: 11/09/21 09:47 Dose: 20 mg Documented by: Carvedilol (Carvedilol 6.25 Mg Tab) 6.25 mg PO BID [facility] Stop: 12/09/21 08:59 Last Admin: 11/09/21 09:47 Dose: 6.25 mg Documented by: Clopidogrel Bisulfate (Clopidogrel Bisulfate 75 Mg Tab) 75 mg PO QAM [facility] Stop: 12/09/21 08:59 Last Admin: 11/09/21 09:47 Dose: 75 mg Documented by: Dextrose (Dextrose 50% 50 Ml Syringe) 25 - 50 ml IV UD PRN; Protocol PRN Reason: Hypoglycemia Protocol Stop: 12/08/21 22:17 Famotidine (Famotidine 40 Mg Tablet) 40 mg PO HS [facility] Stop: 12/09/21 20:59 Ferrous Sulfate (Ferrous Sulfate 325 Mg Tab) 325 mg PO DAILY [facility] Stop: 12/09/21 08:59 Last Admin: 11/09/21 09:47 Dose: 325 mg Documented by: Glucagon (Glucagon For Inj 1 Mg Vial) 1 mg SQ UD PRN; Protocol PRN Reason: Hypoglycemia Protocol Stop: 12/08/21 22:17 Glucose (Glucose 10 Tabs/Tube) 4 - 8 tabs PO UD PRN; Protocol PRN Reason: Hypoglycemia Protocol Stop: 12/08/21 22:17 Glucose (Glucose 40% Gel 15 Gm Tube) 15 - 30 gm PO UD PRN; Protocol PRN Reason: Hypoglycemia Protocol Stop: 12/08/21 22:17 Cefepime HCl 1,000 mg/ Syringe 11.3 mls @ 5.5 mls/min IV Q12H [facility] Stop: 11/16/21 08:59 Last Admin: 11/09/21 09:43 Dose: 5.5 mls/min Documented by: Insulin Aspart (Insulin Aspart Per Unit) 0 units SC ACHS [facility] Stop: 12/09/21 07:29 Last Admin: 11/09/21 09:15 Dose: Not Given Documented by: Insulin Glargine (Insulin Glargine Solostar 100 Units/Ml 3 Ml Pen) 0 - 8 units SC BID [facility]; Protocol Stop: 12/09/21 08:59 Last Admin: 11/09/21 10:02 Dose: Not Given Documented by: Ipratropium [place] (Ipratropium [place] Neb Soln 0.02% 2.5 Ml Vial) 0.5 mg INH Q4H PRN PRN Reason: SOB, WHEEZE Stop: 12/09/21 02:44 Levalbuterol HCl (Levalbuterol 1.25mg/0.5ml Neb) 1.25 mg INH Q4H PRN PRN Reason: SOB, WHEEZE Stop: 12/09/21 02:44 Levothyroxine Sodium (Levothyroxine Sodium 88 Mcg Tablet) 88 mcg PO DAILYBB [facility] Stop: 12/09/21 06:29 Last Admin: 11/09/21 06:30 Dose: 88 mcg Documented by: Lidocaine (Lidocaine 5% 1 Patch) 1 patch TD DAILY [facility] Stop: 12/09/21 08:59 Last Admin: 11/09/21 09:55 Dose: Not Given Documented by: Miscellaneous (Carbohydrates For Hypoglycemia ) 15 - 30 gm PO UD PRN PRN Reason: Hypoglycemia Protocol Stop: 12/08/21 22:17 Miscellaneous (Remove Lidoderm Patch) 1 ea N/A DAILY@2100 [facility] Stop: 12/09/21 20:59 Miscellaneous Information (Vancomycin Consult Active) 1 ea N/A UD PRN PRN Reason: Consult Stop: 12/08/21 20:31 Ondansetron HCl (Ondansetron Inj 2 Mg/Ml 2 Ml Vial) 4 mg IV Q6H PRN PRN Reason: Nausea Stop: 12/08/21 22:37 Polyethylene Glycol (Polyethylene (Miralax) 17 Gm Pack) 17 gm PO DAILY PRN PRN Reason: Constipation Stop: 12/08/21 22:37 Potassium Chloride (Potassium Chloride 10 Meq Tabcr) 10 meq PO DAILY [facility] Stop: 12/09/21 08:59 Last Admin: 11/09/21 09:47 Dose: 10 meq Documented by: Umeclidinium/Vilanterol (Umeclidinium/Vilanterol 62.5/25mcg 7 Puffs/Inhaler) 1 puffs INH DAILY [facility] Stop: 12/09/21 08:59 Last Admin: 11/09/21 09:45 Dose: 1 puffs Documented by: (1) Pneumonia Laterality: right Lung location: unspecified part of lung Pneumonia type: due to unspecified organism Qualified Code(s): J18.9 - Pneumonia, unspecified organism
--- NOTE | 2021-11-09 13:36 | Gastrointestinal Consultation ---
Date of Consultation November 09, 2021 Assessment & Plan (1) Cholelithiasis: (2) Cirrhosis: (3) Total bilirubin, elevated: Her elevated total bili and tender abd may be secondary to infection/sepsis (pneumonia, UTI) vs decompensated cirrhosis. Would expect to improve with tx of infection/sepsis. She may also have mild rhabdo (was found laying on the floor - unsure how long and CK and creatinine are elevated) though with rhabdo would expect transaminase elevation. Regarding possible cholecystitis, she may have cholecystitis and OP records mention that she has been seen by surgery in the past at an [facility] for abd pain and cholecystectomy was deferred due to cirrhosis. As she improves from the pneumonia and UTI if RUQ pain becomes apparent, then would consider HIDA scan to r/o acute cholecystitis, but at this time, no compelling evidence of cholecystitis. Her bile ducts are normal on imaging, thus no signs of cholelithiasis. If cholecystitis becomes apparent that she would be a candidate for Axios stent placement to drain the gallbladder but would tx pneumonia/ and UTI first. Regarding CT suggesting right sided colon wall thickening, this is likely secondary to portal colopathy. - Would check LFTs tomorrow with a direct bilirubin level. - Appreciate hospitalists management of pneumonia/UTI. - No current plan for GI procedures so no GI contraindication to eating though with her confusions likely a risk for aspiration. - If pain/tenderness more clearly RUQ then would check A HIDA w/o CCK. Will follow along. History of Present Illness Reason for Consultation: cirrhotic with abd pain, ascites, colitis? Requesting Physician: Dr. Singh Attending Physician: Surekha Singh, DO History of Present Illness Ms. Jenkins is an 86 yr old female pt of Dr. Valera with a hx of HTN, DM-2 CKD-3, PVD, 3.9cm infrarenal AAA measuring 3.9 cm, HTN, HLD, CKD III, COPD, hypothyroidism, diverticulitis and C-diff in April 2021. She was seen once in 2020 in the [facility] clinic for [place] cirrhosis. EGD at that time with Grade I EV and PHG. Records state that she was found by relatives yesterday morning, laying on the floor of her home, having been incontinent of stool and urine, w/o evidence of trauma. 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 She was transported to [facility] ED and admitted on 11/08/20. On arrival, CT with gallstones, distended gallbladder, elevated total bili at 3.6->3.3 today though transaminases and alk phos w/o significant elevation. Bile ducts appear normal on CT. Leukocytosis present at 22->15. Lactate elevated. CXR with right sided pneumonia, urine WBCs/bacteria and cx growing entercoccus. Blood Cx (-) thus far. D bili hasn't been measured. On exam, she is awake, alert, responsive but only able to give me her first name, not able to tell me where she is etc. Abd is mildly distended and moderately tender throughout, but no more tender in the RUQ than elsewhere. She is being tx with cefepime and Vanco. Allergies Allergy/AdvReac Type Severity Reaction Status Date / Time amoxicillin Allergy Intermediate STOMACH Unverified 11/08/21 15:25 UPSET--PER [facility] 09/21/21 ENCOUNTER clavulanic acid Allergy Intermediate STOMACH Unverified 11/08/21 15:25 UPSET--PER [facility] 09/21/21 ENCOUNTER vitamin E (d-alpha Allergy Intermediate ITCHY Unverified 11/08/21 15:25 tocopherol) RASH, HIVES--PER [facility] 09/21/21 ENCOUNTER Home Medications Medication Instructions Recorded Confirmed Type albuterol sulfate 90 mcg/actuation 2 puff INHALATION Q4H PRN 04/10/19 11/08/21 History aerosol inhaler (Ventolin HFA) aspirin 81 mg tablet,delayed 81 mg PO QAM 04/10/19 11/08/21 History release (Aspirin Low Dose) atorvastatin 20 mg tablet 20 mg PO QAM 04/10/19 11/08/21 History carvedilol 6.25 mg tablet 6.25 mg PO BID 04/10/19 11/08/21 History clopidogrel 75 mg tablet 75 mg PO QAM 04/10/19 11/08/21 History levothyroxine 88 mcg tablet 88 mcg PO QAM 04/10/19 11/08/21 History losartan 50 mg tablet 50 mg PO HS 04/10/19 11/08/21 History ferrous sulfate 325 mg (65 mg 325 mg PO DAILY #30 tab 12/21/20 11/08/21 Rx iron) tablet (FeroSul) famotidine 40 mg tablet 40 mg PO HS 03/29/21 11/08/21 History lidocaine 4 % topical patch 1 patch TOPICAL DAILY 30 Days #30 03/31/21 11/08/21 Rx ea gabapentin 300 mg capsule 600 mg PO TID 11/08/21 11/08/21 History insulin degludec 200 unit/mL (3 15 unit SUBCUT QAM 11/08/21 11/08/21 History mL) subcutaneous pen (Tresiba FlexTouch U-200 insulin) ipratropium 0.5 mg-albuterol 3 mg 3 ml INHALATION DIRECTED 11/08/21 11/08/21 History (2.5 mg base)/3 mL nebulization soln potassium chloride 10 mEq 10 meq PO DAILY 11/08/21 11/08/21 History capsule,extended release sitagliptin 100 mg tablet (Januvia) 100 mg PO DAILY 11/08/21 11/08/21 History umeclidinium 62.5 mcg-vilanterol 1 inh INHALATION DAILY 11/08/21 11/08/21 History 25 mcg/actuation powdr for inhalation (Anoro Ellipta) Patient History Medical History Abdominal pain Anemia Cirrhosis DM II (diabetes mellitus, type II), controlled Emphysema Epigastric abdominal pain HLD (hyperlipidemia) Hypothyroidism PAD (peripheral artery disease) Shortness of breath Surgical History History of appendectomy History of intravascular stent placement Reported Left subclavian, superior mesenteric artery, L iliac, L fempop bypass - [facility] Andrade [facility] Family History Other Diabetes Hypertension Social History Smoking Status: Former smoker Hx Alcohol Use: No Hx Substance Use: No Preferred Language: Kazakh Communication Ability: Effective Telephone Maintainer Required: No Beliefs That Will Affect Care: None marital status: / Current Living Situation: Alone How many Children do You have: 3 Feels Safe at Home: Yes Assistive Devices: Nebulizer Review of Systems Review of Systems: Unable to obtain ROS from the pt. Physical Exam Constitutional: well developed, + ill appearing, + thin and cooperative Eyes: PERRL, conjunctivae normal, anicteric sclerae ENMT: external ear and nose normal, oropharynx normal Neck: trachea midline, no thyromegaly Respiratory: normal respiratory effort (on 6L O2 by NC); no respiratory distress, no labored breathing, does not use accessory muscles and no cough Cardiovascular: RRR, no murmur, no edema Gastrointestinal (Abdomen): Inspection/Auscultation: + abdomen distended (mildly) and + hypoactive bowel sounds Percussion/Palpation: + abdomen tender (diffuse/moderate tenderness over the entire abdomen); no guarding, no hepatosplenomegaly and no ascites Skin: normal turgor and + jaundice Neurologic: awake Psychiatric: Orientation: alert and cooperative Results & Data ([facility]) Vital Signs (Past 12 Hours) Vital Signs Pulse Resp BP Pulse Ox 11/09/21 07:00 82 20 135/61 93 11/09/21 06:00 87 29 H 123/58 L 96 11/09/21 05:00 85 29 H 118/41 L 91 11/09/21 03:30 141/58 H 11/09/21 03:03 90 27 H 131/50 L 92 11/09/21 02:02 108 H 27 H 171/56 H 95 11/09/21 01:59 109 H 25 H 93 Laboratory Results WBC 15, Hb 11, Hct 35, Plts 89, PT 35, INR 12, Na 144, K 3.8, Cl 116, CO2 18, BUN 46, Cr 1.53, glucose 111. Diagnostic Findings CTA 11/09/2021: 1. Streak and motion compromised examination. 2. There is dense airspace consolidation throughout the right lower lobe typical for pneumonia. 3. The gallbladder is distended and there are calcified gallstones in the region of the gallbladder neck. There is mild pericholecystic infiltration. Correlate with clinical and laboratory findings for evidence of acute cholecystitis. Right upper quadrant ultrasound could be considered for further assessment. 4. There is an acute to subacute inferior endplate compression fracture of T10. 5. The liver is cirrhotic in morphology and heterogeneous in attenuation. 6. Esophageal varices, a small volume of abdominopelvic ascites, and splenomegaly indicate portal hypertension. 7. There is wall thickening of the right colon with mild pericolonic infiltration. This could represent portal colopathy versus a nonspecific colitis. Clinical correlation will be required. 8. There is a 3.6 x 3.8 cm infrarenal abdominal aortic aneurysm. 9. The endometrium is abnormally thickened for age measuring up to 15 mm. This is not well evaluated by CT. Nonemergent pelvic ultrasound and gynecology evalua tion is recommended for further assessment. 10. Additional findings as above.
--- NOTE | 2021-11-09 13:37 | Surgery Consultation ---
Date of Consultation November 09, 2021 Assessment & Plan (1) Cholelithiasis: This is an 86y F with multiple medical issues including PAD w/ history of vascular stenting on plavix, HTN, DM2, CKD, COPD, cirrhosis who presented to the [facility] ED on 11/08 after being found down from a fall. She is currently being treated with abx for pneumonia and UTI. Imaging with RUQ US and CT a/p show a distended gallbladder with cholelithiasis and mild pericholecystic infiltration, without convincing evidence of acute cholecystitis. Looking back at her prior imaging these findings are consistent with an US and CT performed back in march. She tells me that she previously has not had any trouble eating or belly pain. On exam she does have some tenderness in the RUQ, this could be related to her cirrhosis and colitis. LFTs are elevated Tb:3.6, AST: 39, ALT: 28, AlkP:60. GI has been consulted and we will await their input. Regardless we do not plan on surgical intervention at this time. We will continue to follow for the meantime. She may continue a diet and plavix for now from our standpoint. History of Present Illness Attending Physician: Surekha Singh, History of Present Illness This is an 86y F with multiple medical issues including PAD w/ history of vascular stenting on plavix, HTN, DM2, CKD, COPD, cirrhosis who presented to the [facility] on 11/08 after being found down from a fall. Workup found she is + for pneumonia and a UTI which she is being treated for. Surgery was consulted today for concern of belly pain and distended gallbladder with stones found on im aging. On interview patient is somnolent but says she does not have any belly pain. Reports previously tolerating a regular diet. She has been aware she has gallstones. She denies f/c, n/v, cp/sob. Imaging with RUQ US and CT a/p show a distended gallbladder with cholelithiasis and mild pericholecystic infiltration, without convincing evidence of acute cholecystitis. Allergies Allergy/AdvReac Type Severity Reaction Status Date / Time amoxicillin Allergy Intermediate STOMACH Unverified 11/08/21 15:25 UPSET--PER [facility] 09/21/21 ENCOUNTER clavulanic acid Allergy Intermediate STOMACH Unverified 11/08/21 15:25 UPSET--PER [facility] 09/21/21 ENCOUNTER vitamin E (d-alpha Allergy Intermediate ITCHY Unverified 11/08/21 15:25 tocopherol) RASH, HIVES--PER [facility] 09/21/21 ENCOUNTER Home Medications Medication Instructions Recorded Confirmed Type albuterol sulfate 90 mcg/actuation 2 puff INHALATION Q4H PRN 04/10/19 11/08/21 History aerosol inhaler (Ventolin HFA) aspirin 81 mg tablet,delayed 81 mg PO QAM 04/10/19 11/08/21 History release (Aspirin Low Dose) atorvastatin 20 mg tablet 20 mg PO QAM 04/10/19 11/08/21 History carvedilol 6.25 mg tablet 6.25 mg PO BID 04/10/19 11/08/21 History clopidogrel 75 mg tablet 75 mg PO QAM 04/10/19 11/08/21 History levothyroxine 88 mcg tablet 88 mcg PO QAM 04/10/19 11/08/21 History losartan 50 mg tablet 50 mg PO HS 04/10/19 11/08/21 History ferrous sulfate 325 mg (65 mg 325 mg PO DAILY #30 tab 12/21/20 11/08/21 Rx iron) tablet (FeroSul) famotidine 40 mg tablet 40 mg PO HS 03/29/21 11/08/21 History lidocaine 4 % topical patch 1 patch TOPICAL DAILY 30 Days #30 03/31/21 11/08/21 Rx ea gabapentin 300 mg capsule 600 mg PO TID 11/08/21 11/08/21 History insulin degludec 200 unit/mL (3 15 unit SUBCUT QAM 11/08/21 11/08/21 History mL) subcutaneous pen (Tresiba FlexTouch U-200 insulin) ipratropium 0.5 mg-albuterol 3 mg 3 ml INHALATION DIRECTED 11/08/21 11/08/21 History (2.5 mg base)/3 mL nebulization soln potassium chloride 10 mEq 10 meq PO DAILY 11/08/21 11/08/21 History capsule,extended release sitagliptin 100 mg tablet (Januvia) 100 mg PO DAILY 11/08/21 11/08/21 History umeclidinium 62.5 mcg-vilanterol 1 inh INHALATION DAILY 11/08/21 11/08/21 History 25 mcg/actuation powdr for inhalation (Anoro Ellipta) Patient History Medical History Abdominal pain Anemia Cirrhosis DM II (diabetes mellitus, type II), controlled Emphysema Epigastric abdominal pain HLD (hyperlipidemia) Hypothyroidism PAD (peripheral artery disease) Shortness of breath Surgical History History of appendectomy History of intravascular stent placement Reported Left subclavian, superior mesenteric artery, L iliac, L fempop bypass - [facility] Andrade [facility] Family History Other Diabetes Hypertension Social History Smoking Status: Unknown if ever smoked Hx Alcohol Use: No Hx Substance Use: No Preferred Language: Tajik Communication Ability: Effective 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 [employer] 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 Beliefs That Will Affect Care: None marital status: / Current Living Situation: Alone Current Living Situation Comment: unable to determine How many Children do You have: 3 Feels Safe at Home: Yes Assistive Devices: Nebulizer and Oxygen - Continuous Review of Systems Respiratory: no dyspnea Cardiovascular: no chest pain Gastrointestinal: + abdominal pain (no pain at rest); no nausea, no vomiting and no change in bowel habits Physical Exam Physical Exam: somnolent Gastrointestinal (Abdomen): Inspection/Auscultation: abdomen not distended Percussion/Palpation: + abdomen tender (some discomfort elicited to palpation in RUQ/epigastric region) and abdomen soft Results & Data ([facility]) Vital Signs (Past 12 Hours) Vital Signs Pulse Resp BP Pulse Ox 11/09/21 07:00 82 20 135/61 93 11/09/21 06:00 87 29 H 123/58 L 96 11/09/21 05:00 85 29 H 118/41 L 91 11/09/21 03:30 141/58 H 11/09/21 03:03 90 27 H 131/50 L 92 11/09/21 02:02 108 H 27 H 171/56 H 95 11/09/21 01:59 109 H 25 H 93 Diagnostic Findings ULTRASOUND RIGHT UPPER QUADRANT ABDOMEN CLINICAL HISTORY: Right upper quadrant abdominal pain. Cirrhosis.. COMPARISON STUDY: Abdominal CT dated 03/29/2021. TECHNIQUE: Real-time, grayscale, and color flow sonography of the right upper quadrant of the abdomen was performed. Images are reviewed in the transverse and longitudinal planes. FINDINGS: Liver: The liver is cirrhotic in morphology and heterogeneous in echotexture. There is nodularity of the hepatic surface contour. There is no intrahepatic biliary ductal dilatation. The main portal vein is patent. Gallbladder: The gallbladder is mildly distended. Shadowing gallstones are noted. The gallbladder wall is top normal in thickness measuring up to 3 mm. Trace pericholecystic fluid is noted. A sonographic Pitts's sign is reportedly absent. The common bile duct measures up to 0.4 cm in diameter. Pancreas: Visualized portions of the pancreatic head are normal in appearance. The majority of the pancreas was not visualized due to overlying bowel gas. Right kidney: Survey images of the right kidney demonstrate cortical atrophy. There is no hydronephrosis. Ascites: None. IMPRESSION: 1. Cholelithiasis within a distended gallbladder. There is no convincing sonographic evidence of acute cholecystitis. If there is strong clinical concern a nuclear hepatobiliary scan should be considered. 2. The gallbladder wall is top normal in thickness, likely related to adjacent hepatocellular disease. 3. Cirrhotic liver morphology. ACT 112: Negative or not required by law. Electronically signed by: Luis Peña M.D. 11/09/2021 7:[address] SCAN OF THE ABDOMEN AND PELVIS WITH IV CONTRAST CLINICAL HISTORY: Right lower quadrant abdominal pain. COMPARISON STUDY: Abdominal CT dated 03/29/2021. TECHNIQUE: Following the IV administration of 95 cc of Optiray 320, CT scan of the abdomen and pelvis is performed from the lung bases to the proximal femora. Images are reviewed in the axial, sagittal, and coronal planes. IV contrast was administered without complication. A dose lowering technique was utilized adhering to the principles of ALARA. The Examination is degraded by motion artifact, as well as by streak artifact from the arms which could not be elevated above the abdomen. CT DOSE: 604.39 mGy.cm FINDINGS: Lung bases: The heart is mildly enlarged and without pericardial effusion. The coronary arteries are densely calcified. There is dense airspace consolidation throughout the right lower lobe. Atelectasis/consolidation is also seen in the lingula. Dependent atelectasis is noted on the left. No pleural effusion is identified. A small hiatal hernia is noted. Esophageal varices are identified. Liver: The contrast-enhanced liver is cirrhotic in morphology and heterogeneous in attenuation. There is nodularity of the hepatic surface contour and hypertrophy of the left lobe. There is no intrahepatic biliary ductal dilatation. The hepatic veins and portal veins are patent. Gallbladder: The gallbladder is distended, and there are calcified gallstones in the region of the gallbladder neck. There is mild pericholecystic infiltration. Spleen: The spleen is enlarged measuring 15.2 cm in length. Pancreas: Unremarkable. Adrenal glands: The adrenal glands appear hyperemic. Kidneys: The contrast enhanced kidneys are atrophic and without hydronephrosis. The kidneys enhance symmetrically. A 3.5 cm cyst is noted on the left. Abdominal vasculature: There is advanced atherosclerotic calcification of the abdominal aorta. An infrarenal abdominal aortic aneurysm measures 3.6 x 3.8 cm (AP x transverse). Stents are noted in the superior mesenteric artery and the left external iliac artery. Bowel: There is mild to moderate colonic diverticulosis without CT evidence of acute diverticulitis. No bowel obstruction is seen. Wall thickening and pericolonic infiltration is suggested involving the right colon. The appendix is not visualized. Peritoneum: Typical for pneumonia. There is trace perisplenic ascites, trace free fluid in the left paracolic gutter, and a small volume of Pelvic ascites. No intraperitoneal free air is identified. Lymphadenopathy: None. Pelvic viscera: The bladder is decompressed around a Garza catheter and not well evaluated. The endometrium appears thickened for age measuring up to 1.5 cm. Fibroids are suggested. No adnexal lesion is seen. Skeletal structures: The skeletal structures are osteopenic. There is a mild acute to subacute inferior endplate compression fracture of T10. Mild to moderate lumbosacral spondylosis is observed. No lytic or blastic lesions are seen. IMPRESSION: 1. Streak and motion compromised examination. 2. There is dense airspace consolidation throughout the right lower lobe typical for pneumonia. 3. The gallbladder is distended and there are calcified gallstones in the region of the gallbladder neck. There is mild pericholecystic infiltration. Correlate with clinical and laboratory findings for evidence of acute cholecystitis. Right upper quadrant ultrasound could be considered for further assessment. 4. There is an acute to subacute inferior endplate compression fracture of T10. 5. The liver is cirrhotic in morphology and heterogeneous in attenuation. 6. Esophageal varices, a small volume of abdominopelvic ascites, and splenomegaly indicate portal hypertension. 7. There is wall thickening of the right colon with mild pericolonic infiltration. This could represent portal colopathy versus a nonspecific colitis. Clinical correlation will be required. 8. There is a 3.6 x 3.8 cm infrarenal abdominal aortic aneurysm. 9. The endometrium is abnormally thickened for age measuring up to 15 mm. This is not well evaluated by CT. Nonemergent pelvic ultrasound and gynecology evaluation is recommended for further assessment. 10. Additional findings as above. ACT 112: Positive. There are findings on this exam that require communication between the performing entity and the patient following Patient Test Result Information Act ([place] Act 112) guidelines. Electronically signed by: Luis Peña M.D. 11/09/2021 12:05 PM PG Care Time/CCT Total # of Minutes Spent Total Time Spent with Patient: Total time spent is greater than 50% in coordination of care (as documented) at patient's floor/unit and/or counseling patient: Coding Level of Care Code 40453 Initial Inpt Care Lvl 3 Diagnoses Cholelithiasis K80.20
--- NOTE | 2021-11-09 13:47 | Pharmacy Report ---
Pharmacy Abx Dose Short Note - Date of Service November 09, 2021 - Assessment & Plan Assessment 86 year old F receiving VANCOMYCIN + CEFEPIME for treatment of sepsis secondary to PNA vs UTI vs intraabd process MRSA nasal swab negative, making MRSA pneumonia unlikely Urine cx growing probable enterococcus BLCX's and sputum cx pending EARL present on admission and slightly worse today SCr 1.36 --> 1.53 (baseline ~0.9) MAPs > 35, however lactate remains elevated (+h/o cirrhosis/[place]) Plan Vancomycin * 1250mg load given last PM at 2128 (~20mg/kg) * Random level drawn this AM ~ 11 hrs later = 11.6 indicating need for redosing * Maint dose: 750mg IV Q 24 hrs is predicted to achieve goal AUC/ARUN of 400-600 (with current renal impairment) with a predicted 14% risk of nephrotoxicity * Will check level prior to 2nd dose given EARL CEFEPIME * eCrCl 11-29cc/min; 1gm IV Q 12 hrs recommended as this regimen achieves better p'kinetic targets vs 2gm Q 24 hr regimen Pharmacy will continue to follow and will adjust dose/frequency as necessary. Thank you.
[2021-11-09 13:53] LABS: iSTAT Blood Urea Nitrogen 42 mg/dl (7-18); iSTAT Carbon Dioxide 18 mmol/L (24-31); iSTAT Chloride 98 mmol/L (101-112); iSTAT Creatinine 1.2 mg/dl (0.6-1.3); iSTAT Hematocrit 31 % (37-47); iSTAT Hemoglobin 10.5 g/dl (12.0-16.0); iSTAT Ionized Calcium 1.05 mmol/l (1.12-1.32); iSTAT Potassium 3.4 mmol/L (3.3-5.0); iSTAT Sodium 136 mmol/L (135-144)
[2021-11-09] MEDS: VANCOMYCIN HCL 750 MG in SODIUM CHLORIDE 0.9% 250 ML IV SCH (15:34)
[2021-11-09] MEDS: FAMOTIDINE 40 MG TABLET PO SCH (20:47)
[2021-11-09 21:00] LABS: Mean Corpuscular Hgb Conc 31.6 g/dL (32-36)
[2021-11-09] MEDS ORDERED: LOSARTAN POTASSIUM 50 MG TAB PO SCH (21:00)
[2021-11-09 21:16] LABS: Hematocrit (blood only) 31.6 % (37-47); Mean Corpuscular Volume 85.4 fL (80-100); RDW Coefficient of Variation 22.5 % (11.5-14.5); White Blood Count 6.82 K/uL (4.8-10.8)
[2021-11-09 21:27] LABS: BUN Creatinine Ratio 36.2 (10-20); Calcium 8.7 mg/dl (8.5-10.1); Creatinine Clr Calc Pharmacy 20.7 ml/min; Est GFR (African American) 32.5 ml/min; Potassium 4.3 mmol/L (3.5-5.1)
[2021-11-09 21:30] LABS: Platelet Count 77 K/uL (130-400); Platelet Estimate Decreased (Normal)
[2021-11-09] MEDS: SODIUM CHLORIDE 0.9% 1000ML 1,000 ML IV SCH (21:59)
[2021-11-10 04:29] LABS: Mean Corpuscular Hgb Conc 31.6 g/dL (32-36)
[2021-11-10 04:50] LABS: Hematocrit (blood only) 32.6 % (37-47); Hemoglobin 10.3 g/dL (12.0-16.0); Mean Corpuscular Hemoglobin 27.2 pg (25-34); Mean Corpuscular Volume 86.2 fL (80-100); RDW Coefficient of Variation 22.7 % (11.5-14.5); RDW Standard Deviation 70.4 fL (36.4-46.3); Red Blood Count 3.78 M/uL (4.2-5.4)
[2021-11-10 04:57] LABS: Platelet Count 67 K/uL (130-400)
[2021-11-10 05:01] LABS: BUN Creatinine Ratio 40.6 (10-20); Creatinine Clr Calc Pharmacy 22.2 ml/min; Est GFR (African American) 35.6 ml/min; Est GFR (Non-African American) 30.7 ml/min; Magnesium 2.5 mg/dl (1.8-2.4); Potassium 4.1 mmol/L (3.5-5.1)
[2021-11-10 05:02] LABS: Platelet Estimate Decreased (Normal)
[2021-11-10 05:09] LABS: Albumin Globulin Ratio 0.5 (0.9-2); Bilirubin,Total 2.2 mg/dl (0.2-1); Globulin 4.4 gm/dl (2.5-4.0); Phosphorus 3.8 mg/dl (2.5-4.9); Total Protein 6.4 gm/dl (6.4-8.2)
[2021-11-10] MEDS: SODIUM CHLORIDE 0.9% 1000ML 1,000 ML IV SCH ×2 (06:05→14:04)
[2021-11-10] MEDS: LEVOTHYROXINE SODIUM 88 MCG TABLET PO SCH (06:07)
--- NOTE | 2021-11-10 08:00 | Surgery Progress Note ---
Date of Service November 10, 2021 Assessment & Plan (1) Total bilirubin, elevated: Plan: LFT's improving I do not believe she has acute cholecystitis. wbc now normal. risk/benefit would not warrant cholecystectomy at this time will s/o. please call if any questions/concerns. (2) Cholelithiasis: Admission and Anticipated Discharge Date Admission Date: November 08, 2021 Subjective pt seen. arousable and will answer some questions but somewhat somnolent. Physical Exam Constitutional: WD/WN, vitals as above no acute distress and not ill appearing Eyes: PERRL, conjunctivae normal, anicteric sclerae EOM intact bilaterally ENMT: external ear and nose normal, oropharynx normal Ears: no hearing impairment Neck: trachea midline, no thyromegaly Respiratory: normal respiratory effort; no respiratory distress and does not use accessory muscles Cardiovascular: Rate/Rhythm: regular rate and regular rhythm Gastrointestinal (Abdomen): soft. tenderness equal in all 4 quadrants. no peritoneal signs. Skin: no rashes, warm and dry Psychiatric: Orientation: alert, oriented x 3 and cooperative Results & Data ([facility]) Vital Signs (Past 12 Hours) Vital Signs Temp Pulse Pulse Resp BP BP Pulse Ox 11/10/21 04:00 36.6 C 66 22 117/39 L 94 11/10/21 02:00 70 19 133/40 L 96 11/10/21 00:00 36.8 C 70 22 130/44 L 94 11/09/21 22:00 66 21 102/34 L 94 11/09/21 21:43 36.7 C 71 20 105/29 L 92 PG Care Time/CCT Total # of Minutes Spent Total Time Spent with Patient: Total time spent is greater than 50% in coordination of care (as documented) at patient's floor/unit and/or counseling patient: Coding Level of Care Code 82811 Subseq Hosp Care Lvl 3 Diagnoses Total bilirubin, elevated R17 Cholelithiasis K80.20
--- NOTE | 2021-11-10 09:43 | Gastroenterology Progress Note ---
Date of Service November 10, 2021 Assessment & Plan (1) Cholelithiasis: Plan: 86 year old female w/ history of HTN, DM, CKD, COPD, cirrhosis admitted w/ metabolic encephalopathy, EARL and fall - GI asked to evaluate for elevated LFTs DDX including secondary to infection/sepsis (pneumonia, UTI) vs decompensated cirrhosis. Regarding CT suggesting right sided colon wall thickening, this is likely secondary to portal colopathy, there is no evidence of biliary obstruction on imaging. - Appreciate hospitalists management of pneumonia/UTI - No current plan for GI procedures - If pain/tenderness more clearly RUQ then would check A HIDA w/o CCK - Can use lactulose titrated to 2-4 BMs daily - Consider Xifaxan 550 BID - Complete infectious workup Thank you for allowing us to participate in the care of this patient. Please call with any acute changes, questions or concerns. Please see addendum below with additional recommendation from my supervising physician. (2) Cirrhosis: (3) Total bilirubin, elevated: Plan: Will follow along. Admission and Anticipated Discharge Date Admission Date: November 08, 2021 Supervising Physician Co-Signing Physician Notes Attending attestation I have seen, examined this patient, and agree with the findings and above by our mid-level provider ADAM Chicas, with the following additions: - Adm with AMS, no overt asterixis on exam. - Etiology may be known infections, LFTs can be explained by underlying disease, cholestasis of sepsis given infection, possibly chronic cholecystitis. May need a HIDA to exclude, will defer to Surgery - Had 4 BM's yesterday, none today, will attempt xifaxin if can not take PO then may need lactulose enemas - Otherwise no signs of obstruction - If has diarrhea check c-diff given yesterdays history and thickening on CT Subjective Pt was seen and evaluated, chart reviewed. She is awake, alert, responding to yes no questions. Unable to provide any history. Review of Systems Review of Systems: Unobtainable due to cognitive status Physical Exam Constitutional: WD/WN, vitals as above Neck: trachea midline; no tracheal deviation Respiratory: normal respiratory effort Cardiovascular: Rate/Rhythm: regular rate and regular rhythm Gastrointestinal (Abdomen): normal bowel sounds, soft, nontender, no hepatosplenomegaly Skin: no rashes, warm and dry Results & Data ([place]) Vital Signs (Past 12 Hours) Vital Signs Temp Pulse Pulse Resp BP BP Pulse Ox 11/10/21 04:00 36.6 C 66 22 117/39 L 94 11/10/21 02:00 70 19 133/40 L 96 11/10/21 00:00 36.8 C 70 22 130/44 L 94 11/09/21 22:00 66 21 102/34 L 94 11/09/21 21:43 36.7 C 71 20 105/29 L 92 Laboratory Results 11/10/21 11/10/21 11/10/21 Range/Units 07:26 04:19 04:19 WBC 6.30 (4.8-10.8) K/uL RBC 3.78 L (4.2-5.4) M/uL Hgb 10.3 L (12.0-16.0) g/dL POC Hgb (12.0-16.0) g/dl Hct 32.6 L (37-47) % POC Hct (37-47) % MCV 86.2 (80-100) fL MCH 27.2 (25-34) pg MCHC 31.6 L (32-36) g/dL RDW Std Deviation 70.4 H (36.4-46.3) fL RDW Coeff of Daniela 22.7 H (11.5-14.5) % Plt Count 67 L (130-400) K/uL Platelet Estimate Decreased L (Normal) POC Sodium (135-144) mmol/L Sodium (136-145) mmol/L POC Potassium (3.3-5.0) mmol/L Potassium (3.5-5.1) mmol/L POC Chloride (101-112) mmol/L Chloride (98-107) mmol/L Carbon Dioxide (21-32) mmol/L POC Total CO2 (24-31) mmol/L Anion Gap (3-11) POC Anion Gap (16-25) mmol/L POC BUN (7-18) mg/dl BUN (7-18) mg/dl Creatinine (0.6-1.2) mg/dl POC Creatinine (0.6-1.3) mg/dl Est Cr Clr Drug Dosing ml/min Est GFR ( Amer) ml/min Est GFR (Non-Af Amer) ml/min BUN/Creatinine Ratio (10-20) Glucose (70-99) mg/dl POC Glucose 121 H (70-99) mg/dl POC Glucose (other) Lactate Calcium (8.5-10.1) mg/dl POC Ioniz Calcium Dimple (1.12-1.32) mmol/l Phosphorus (2.5-4.9) mg/dl Magnesium (1.8-2.4) mg/dl Total Bilirubin (0.2-1) mg/dl Direct Bilirubin (0-0.2) mg/dl AST (15-37) U/L ALT (12-78) Alkaline Phosphatase (45-117) U/L Total Protein (6.4-8.2) gm/dl Albumin (3.4-5.0) gm/dl Globulin (2.5-4.0) gm/dl Albumin/Globulin Ratio (0.9-2) Procalcitonin 39.05 H (0-0.5) ng/ml 11/10/21 11/09/21 11/09/21 Range/Units 04:19 20:53 20:53 WBC 6.82 (4.8-10.8) K/uL RBC 3.70 L (4.2-5.4) M/uL Hgb 10.0 L (12.0-16.0) g/dL POC Hgb (12.0-16.0) g/dl Hct 31.6 L (37-47) % POC Hct (37-47) % MCV 85.4 (80-100) fL MCH 27.0 (25-34) pg MCHC 31.6 L (32-36) g/dL RDW Std Deviation 69.0 H (36.4-46.3) fL RDW Coeff of Daniela 22.5 H (11.5-14.5) % Plt Count 77 L (130-400) K/uL Platelet Estimate Decreased L (Normal) POC Sodium (135-144) mmol/L Sodium 144 144 (136-145) mmol/L POC Potassium (3.3-5.0) mmol/L Potassium 4.1 4.3 (3.5-5.1) mmol/L POC Chloride (101-112) mmol/L Chloride 120 H 119 H (98-107) mmol/L Carbon Dioxide 19 L 18 L (21-32) mmol/L POC Total CO2 (24-31) mmol/L Anion Gap 5.0 8.0 (3-11) POC Anion Gap (16-25) mmol/L POC BUN (7-18) mg/dl BUN 62 H 60 H (7-18) mg/dl Creatinine 1.53 H 1.65 H (0.6-1.2) mg/dl POC Creatinine (0.6-1.3) mg/dl Est Cr Clr Drug Dosing 22.2 20.7 ml/min Est GFR ( Amer) 35.6 32.5 ml/min Est GFR (Non-Af Amer) 30.7 28.0 ml/min BUN/Creatinine Ratio 40.6 H 36.2 H (10-20) Glucose 138 H 184 H (70-99) mg/dl POC Glucose (70-99) mg/dl POC Glucose (other) Lactate Calcium 9.0 8.7 (8.5-10.1) mg/dl POC Ioniz Calcium Dimple (1.12-1.32) mmol/l Phosphorus 3.8 (2.5-4.9) mg/dl Magnesium 2.5 H (1.8-2.4) mg/dl Total Bilirubin 2.2 H (0.2-1) mg/dl Direct Bilirubin 1.0 H (0-0.2) mg/dl AST 36 (15-37) U/L ALT 27 (12-78) Alkaline Phosphatase 43 L (45-117) U/L Total Protein 6.4 (6.4-8.2) gm/dl Albumin 2.0 L (3.4-5.0) gm/dl Globulin 4.4 H (2.5-4.0) gm/dl Albumin/Globulin Ratio 0.5 L (0.9-2) Procalcitonin (0-0.5) ng/ml 11/09/21 11/09/21 11/09/21 Range/Units 20:53 20:44 17:20 WBC (4.8-10.8) K/uL RBC (4.2-5.4) M/uL Hgb (12.0-16.0) g/dL POC Hgb (12.0-16.0) g/dl Hct (37-47) % POC Hct (37-47) % MCV (80-100) fL MCH (25-34) pg MCHC (32-36) g/dL RDW Std Deviation (36.4-46.3) fL RDW Coeff of Daniela (11.5-14.5) % Plt Count (130-400) K/uL Platelet Estimate (Normal) POC Sodium (135-144) mmol/L Sodium (136-145) mmol/L POC Potassium (3.3-5.0) mmol/L Potassium (3.5-5.1) mmol/L POC Chloride (101-112) mmol/L Chloride (98-107) mmol/L Carbon Dioxide (21-32) mmol/L POC Total CO2 (24-31) mmol/L Anion Gap (3-11) POC Anion Gap (16-25) mmol/L POC BUN (7-18) mg/dl BUN (7-18) mg/dl Creatinine (0.6-1.2) mg/dl POC Creatinine (0.6-1.3) mg/dl Est Cr Clr Drug Dosing ml/min Est GFR ( Amer) ml/min Est GFR (Non-Af Amer) ml/min BUN/Creatinine Ratio (10-20) Glucose (70-99) mg/dl POC Glucose 166 H 160 H (70-99) mg/dl POC Glucose (other) Lactate 1.4 Calcium (8.5-10.1) mg/dl POC Ioniz Calcium Dimple (1.12-1.32) mmol/l Phosphorus (2.5-4.9) mg/dl Magnesium (1.8-2.4) mg/dl Total Bilirubin (0.2-1) mg/dl Direct Bilirubin (0-0.2) mg/dl AST (15-37) U/L ALT (12-78) Alkaline Phosphatase (45-117) U/L Total Protein (6.4-8.2) gm/dl Albumin (3.4-5.0) gm/dl Globulin (2.5-4.0) gm/dl Albumin/Globulin Ratio (0.9-2) Procalcitonin (0-0.5) ng/ml 11/09/21 11/09/21 11/09/21 Range/Units 12:24 12:23 09:59 WBC (4.8-10.8) K/uL RBC (4.2-5.4) M/uL Hgb (12.0-16.0) g/dL POC Hgb (12.0-16.0) g/dl Hct (37-47) % POC Hct (37-47) % MCV (80-100) fL MCH (25-34) pg MCHC (32-36) g/dL RDW Std Deviation (36.4-46.3) fL RDW Coeff of Daniela (11.5-14.5) % Plt Count (130-400) K/uL Platelet Estimate (Normal) POC Sodium (135-144) mmol/L Sodium (136-145) mmol/L POC Potassium (3.3-5.0) mmol/L Potassium (3.5-5.1) mmol/L POC Chloride (101-112) mmol/L Chloride (98-107) mmol/L Carbon Dioxide (21-32) mmol/L POC Total CO2 (24-31) mmol/L Anion Gap (3-11) POC Anion Gap (16-25) mmol/L POC BUN (7-18) mg/dl BUN (7-18) mg/dl Creatinine (0.6-1.2) mg/dl POC Creatinine (0.6-1.3) mg/dl Est Cr Clr Drug Dosing ml/min Est GFR ( Amer) ml/min Est GFR (Non-Af Amer) ml/min BUN/Creatinine Ratio (10-20) Glucose (70-99) mg/dl POC Glucose 131 H (70-99) mg/dl POC Glucose (other) Lactate 3.7 H* Cancelled Calcium (8.5-10.1) mg/dl POC Ioniz Calcium Dimple (1.12-1.32) mmol/l Phosphorus (2.5-4.9) mg/dl Magnesium (1.8-2.4) mg/dl Total Bilirubin (0.2-1) mg/dl Direct Bilirubin (0-0.2) mg/dl AST (15-37) U/L ALT (12-78) Alkaline Phosphatase (45-117) U/L Total Protein (6.4-8.2) gm/dl Albumin (3.4-5.0) gm/dl Globulin (2.5-4.0) gm/dl Albumin/Globulin Ratio (0.9-2) Procalcitonin (0-0.5) ng/ml 11/08/21 Range/Units 16:58 WBC (4.8-10.8) K/uL RBC (4.2-5.4) M/uL Hgb (12.0-16.0) g/dL POC Hgb 10.5 L (12.0-16.0) g/dl Hct (37-47) % POC Hct 31 L (37-47) % MCV (80-100) fL MCH (25-34) pg MCHC (32-36) g/dL RDW Std Deviation (36.4-46.3) fL RDW Coeff of Daniela (11.5-14.5) % Plt Count (130-400) K/uL Platelet Estimate (Normal) POC Sodium 136 (135-144) mmol/L Sodium (136-145) mmol/L POC Potassium 3.4 (3.3-5.0) mmol/L Potassium (3.5-5.1) mmol/L POC Chloride 98 L (101-112) mmol/L Chloride (98-107) mmol/L Carbon Dioxide (21-32) mmol/L POC Total CO2 18 L (24-31) mmol/L Anion Gap (3-11) POC Anion Gap 24.0 (16-25) mmol/L POC BUN 42 H (7-18) mg/dl BUN (7-18) mg/dl Creatinine (0.6-1.2) mg/dl POC Creatinine 1.2 (0.6-1.3) mg/dl Est Cr Clr Drug Dosing ml/min Est GFR ( Amer) ml/min Est GFR (Non-Af Amer) ml/min BUN/Creatinine Ratio (10-20) Glucose (70-99) mg/dl POC Glucose (70-99) mg/dl POC Glucose (other) TNP Lactate Calcium (8.5-10.1) mg/dl POC Ioniz Calcium Dimple 1.05 L (1.12-1.32) mmol/l Phosphorus (2.5-4.9) mg/dl Magnesium (1.8-2.4) mg/dl Total Bilirubin (0.2-1) mg/dl Direct Bilirubin (0-0.2) mg/dl AST (15-37) U/L ALT (12-78) Alkaline Phosphatase (45-117) U/L Total Protein (6.4-8.2) gm/dl Albumin (3.4-5.0) gm/dl Globulin (2.5-4.0) gm/dl Albumin/Globulin Ratio (0.9-2) Procalcitonin (0-0.5) ng/ml
[2021-11-10] MEDS: INSULIN ASPART PER UNIT SC SCH ×4 (09:59→20:25)
[2021-11-10] MEDS: carvediloL 6.25 MG TAB PO SCH ×2 (10:18→19:33)
[2021-11-10] MEDS: CLOPIDOGREL BISULFATE 75 MG TAB PO SCH (10:18)
[2021-11-10] MEDS: POTASSIUM CHLORIDE 10 MEQ TABCR PO SCH (10:18)
[2021-11-10] MEDS: FERROUS SULFATE 325 MG TAB PO SCH (10:18)
[2021-11-10] MEDS: ASPIRIN 81 MG ECTAB PO SCH (10:19)
[2021-11-10] MEDS: CEFEPIME 1,000 MG in SYRINGE 0 ML IV SCH ×2 (10:19→21:08)
[2021-11-10] MEDS: ATORVASTATIN 20 MG TAB PO SCH (10:19)
[2021-11-10] MEDS: LIDOCAINE 5% 1 PATCH TD SCH (10:20)
[2021-11-10] MEDS: INSULIN GLARGINE SOLOSTAR 100 UNITS/ML 3 ML PEN SC SCH ×2 (10:20→20:25)
[2021-11-10] MEDS: UMECLIDINIUM/VILANTEROL 62.5/25MCG 7 PUFFS/INHALER INH SCH (10:21)
--- NOTE | 2021-11-10 12:17 | Hospitalist Progress Note ---
Date of Service November 10, 2021 Assessment & Plan (1) Acute metabolic encephalopathy: Plan: appears to be resolved, was likely related to sepsis. Still somnolent but is oriented. (2) Abdominal pain: Plan: Resolved. There was a question of acute cholecystitis based on imaging findings, however, she does not clinically appear to be this per general surgery who has evaluated her. She does have cholelithiasis that appears to be asymptomatic. In the setting of abdominal pain with cirrhosis, hyperbilirubinemia and cholelithiasis she was also seen by gastroenterology. Her elevated total biliru bin and tender abdomen was thought to be possibly secondary to infection or sepsis versus decompensated cirrhosis. As this has improved with treatment of her infection and it was more likely the former. At this point with resolution of pain no further work-up is warranted. CT also found that endometrium is abnormally thickened for age which will be not emergently evaluated with a pelvic ultrasound and [employer] evaluation as outpatient. (3) Hypoxia: Plan: 2/2 pneumonia. Cont current antibiotics including Vanc and cefepime pending culture results. Pulmonary toilet efforts with incentive spirometer and flutter valve as tolerated. When able ok to ambulate with assistance. Wean oxygen as tolerated. (4) Sepsis: Plan: Resuscitated. Continue treatment of pneumonia per plan below. (5) Pneumonia: Plan: Covid, flu A/B, RSV PCR negative, hypoxia as above. CT chest with right lower lobe consolidative opacities concerning for pneumonia and/or aspiration. Started on vanc and Zosyn. Out of concerns for EARL, changed Zosyn to cefepime. Consider adding flagyl if no improvement. Oxygen supplementation, wean as tolerated. Speech evaluation revealed no concerns for aspiration. (6) Fall: Plan: Patient remembers falling out of her bed -likely related to weakness in setting of metabolic encephalopathy which is now clearing. Min CK elevation expected. Likely improved after IVF resuscitation. CT head, cervical spine CT, chest CT, pelvic XR without evidence of acute trauma or fracture. Cont with Fall precautions, PT OT evaluation (7) Acute kidney injury superimposed on chronic kidney disease: Plan: Cr elevated at 1.36 (baseline ~ 0.9) in setting of dehydration and sepsis. Remains 1.5 today, cont with IVF periodically and repeat BMP in am. (8) PAD (peripheral artery disease): Plan: chronic, stable. S/p stent L subclavian, superior mesenteric artery, L iliac and fempop bypass Follows with Dr. Andrade of vascular surgery in [place] Continue aspirin, plavix, statin (9) Cirrhosis: Plan: Diagnosed in January 2021, [place], She is at risk for hypervolemia so we will be cautious with IV fluids. Last abdominal us in April 2017 with cholelithiasis without cholecystitis, hepatic cirrhosis With somnolence this morning we will check an ammonia level. (10) DM II (diabetes mellitus, type II), controlled: Plan: A1c 9.4 reflecting poor overall control. Cont basal/bolus insulin while in- patient. BSG AC HS (11) COPD (chronic obstructive pulmonary disease): Plan: chronic, stable-no wheezing. Does not require O2 at baseline. Former smoker. Continue Anoro Ellipda, Albuterol inh PRN (12) Hypothyroidism: Plan: Continue levothyroxine per home regimen. (13) Thickened endometrium: Plan: Esophageal varices with a small volume of abdominal pelvic ascites and splenomegaly indicating portal hypertension is present. There is also wall thickening of the right colon with mild pericolic infiltration which could present a nonspecific colitis. She continues on antibiotics and would appreciate gastroenterology thoughts on this. Endometrium is abnormally thickened for age which will be not emergently evaluated with a pelvic ultrasound and [employer] evaluation as outpatient. (14) Aneurysm of infrarenal abdominal aorta: Plan: incidental finding on CT scan. Follow-up as outpatient for monitoring. (15) DVT prophylaxis: Plan: DVT Ppx: SCDs for now given thrombocytopenia Code status: FULL Dispo-cont PCU, Surekha Singh DO [facility] Hospitalist Admission and Anticipated Discharge Date Admission Date: November 08, 2021 Subjective 86-year-old female presented with acute metabolic encephalopathy secondary to pneumonia and urinary tract infection She is somnolent and moaning on occasion. She is answering minimal questions and oriented to person and place. She is unwilling to answer all questions and frequently is frustrated with line of questioning and examination. She does deny pain, specifically denying any abdominal pain. Review of Systems Review of Systems: All systems were reviewed and negative except as in indicated above. Physical Exam Physical Exam: CONSTITUTIONAL: WNWD, vitals as above, generally ill-appearing and somnolent. EYES: pupils are round and equal bilaterally, normal conjunctivae, no scleral icterus ENT: external ear and nose normal, producing thick green sputum while talking NECK: trachea midline RESPIRATORY: clear to auscultation bilaterally, no crackles, rales or wheezes, normal respiratory effort CARDIOVASCULAR: regular rate and rhythm, S1 and 2 heard without murmurs, gallops or rubs, no JVD, no peripheral edema GASTROINTESTINAL: soft, protuberant but nondistended, LLQ pain and slight guarding. MUSCULOSKELETAL: strength 5/5 throughout, head is normocephalic and atraumatic SKIN: warm and dry NEUROLOGIC: CN 2-12 grossly intact, no sensory deficit, normal cognition, normal speech, no tremor, no gross focal deficits. PSYCHIATRIC: alert cooperative and oriented to person, place and time. Results & Data Results & Data ([facility]) Vital Signs (Past 12 Hours) Vital Signs Temp Pulse Resp BP Pulse Ox 11/10/21 08:00 37.4 C 66 22 92 11/10/21 04:00 36.6 C 66 22 117/39 L 94 11/10/21 02:00 70 19 133/40 L 96 Laboratory Results Short CBC 11/09/21 11/10/21 Range/Units 20:53 04:19 WBC 6.82 6.30 (4.8-10.8) K/uL Hgb 10.0 L 10.3 L (12.0-16.0) g/dL Hct 31.6 L 32.6 L (37-47) % Plt Count 77 L 67 L (130-400) K/uL BMP 11/09/21 11/10/21 20:53 04:19 Sodium 144 144 Potassium 4.3 4.1 Chloride 119 H 120 H Carbon Dioxide 18 L 19 L BUN 60 H 62 H Creatinine 1.65 H 1.53 H Glucose 184 H 138 H Calcium 8.7 9.0 Liver Function 11/10/21 Range/Units 04:19 Total Bilirubin 2.2 H (0.2-1) mg/dl Direct Bilirubin 1.0 H (0-0.2) mg/dl AST 36 (15-37) U/L ALT 27 (12-78) Alkaline Phosphatase 43 L (45-117) U/L Albumin 2.0 L (3.4-5.0) gm/dl Medications Administered Current Inpatient Medications Acetaminophen (Acetaminophen 325 Mg Tab) 650 mg PO Q4H PRN PRN Reason: Pain or Fever Stop: 12/08/21 22:37 Albuterol (Albuterol Hfa 8 Gm Inhaler) 2 puffs INH Q4H PRN PRN Reason: Wheezing Stop: 12/08/21 22:37 Aspirin (Aspirin 81 Mg Ectab) 81 mg PO QAM [facility] Stop: 12/09/21 08:59 Last Admin: 11/10/21 10:19 Dose: 81 mg Documented by: Atorvastatin Calcium (Atorvastatin 20 Mg Tab) [facility] [place] Stop: 12/09/21 08:59 Last Admin: 11/10/21 10:19 Dose: 20 mg Documented by: Carvedilol (Carvedilol 6.25 Mg Tab) 6.25 mg PO BID [facility] Stop: 12/09/21 08:59 Last Admin: 11/10/21 10:18 Dose: 6.25 mg Documented by: Clopidogrel Bisulfate (Clopidogrel Bisulfate 75 Mg Tab) [facility] [place] Stop: 12/09/21 08:59 Last Admin: 11/10/21 10:18 Dose: 75 mg Documented by: Dextrose (Dextrose 50% 50 Ml Syringe) 25 - 50 ml IV UD PRN; Protocol PRN Reason: Hypoglycemia Protocol Stop: 12/08/21 22:17 Famotidine (Famotidine 40 Mg Tablet) 40 mg PO [facility] Stop: 12/09/21 20:59 Last Admin: 11/09/21 20:47 Dose: 40 mg Documented by: Ferrous Sulfate (Ferrous Sulfate 325 Mg Tab) 325 mg PO DAILY [facility] Stop: 12/09/21 08:59 Last Admin: 11/10/21 10:18 Dose: 325 mg Documented by: Glucagon (Glucagon For Inj 1 Mg Vial) 1 mg SQ UD PRN; Protocol PRN Reason: Hypoglycemia Protocol Stop: 12/08/21 22:17 Glucose (Glucose 10 Tabs/Tube) 4 - 8 tabs PO UD PRN; Protocol PRN Reason: Hypoglycemia Protocol Stop: 12/08/21 22:17 Glucose (Glucose 40% Gel 15 Gm Tube) 15 - 30 gm PO UD PRN; Protocol PRN Reason: Hypoglycemia Protocol Stop: 12/08/21 22:17 Cefepime HCl 1,000 mg/ Syringe 11.3 mls @ 5.5 mls/min IV Q12H [facility] Stop: 11/16/21 08:59 Last Admin: 11/10/21 10:19 Dose: 5.5 mls/min Documented by: Vancomycin HCl 750 mg/ Sodium (Chloride) 265 mls @ 200 mls/hr IV Q24H [facility] Stop: 11/16/21 13:59 Last Infusion: 11/09/21 19:45 Dose: Infused Documented by: Sodium Chloride (Nss 1000ml) 1,000 mls @ 125 mls/hr IV .Q8H [facility] Stop: 11/10/21 21:14 Last Admin: 11/10/21 06:05 Dose: 125 mls/hr Documented by: Insulin Aspart (Insulin Aspart Per Unit) 0 units SC ACHS [facility] Stop: 12/09/21 07:29 Last Admin: 11/10/21 09:59 Dose: Not Given Documented by: Insulin Glargine (Insulin Glargine Solostar 100 Units/Ml 3 Ml Pen) 0 - 8 units SC BID [facility]; Protocol Stop: 12/09/21 08:59 Last Admin: 11/10/21 10:20 Dose: 5 units Documented by: Ipratropium [place] (Ipratropium [place] Neb Soln 0.02% 2.5 Ml Vial) 0.5 mg INH Q4H PRN PRN Reason: SOB, WHEEZE Stop: 12/09/21 02:44 Levalbuterol HCl (Levalbuterol 1.25mg/0.5ml Neb) 1.25 mg INH Q4H PRN PRN Reason: SOB, WHEEZE Stop: 12/09/21 02:44 Levothyroxine Sodium (Levothyroxine Sodium 88 Mcg Tablet) 88 mcg PO DAILYBB [facility] Stop: 12/09/21 06:29 Last Admin: 11/10/21 06:07 Dose: 88 mcg Documented by: Lidocaine (Lidocaine 5% 1 Patch) 1 patch TD DAILY [facility] Stop: 12/09/21 08:59 Last Admin: 11/10/21 10:20 Dose: 1 patch Documented by: Miscellaneous (Carbohydrates For Hypoglycemia ) 15 - 30 gm PO UD PRN PRN Reason: Hypoglycemia Protocol Stop: 12/08/21 22:17 Miscellaneous (Remove Lidoderm Patch) 1 ea N/A DAILY@2100 [facility] Stop: 12/09/21 20:59 Last Admin: 11/09/21 20:39 Dose: Not Given Documented by: Miscellaneous Information (Vancomycin Consult Active) 1 ea N/A UD PRN PRN Reason: Consult Stop: 12/08/21 20:31 Ondansetron HCl (Ondansetron Inj 2 Mg/Ml 2 Ml Vial) 4 mg IV Q6H PRN PRN Reason: Nausea Stop: 12/08/21 22:37 Polyethylene Glycol (Polyethylene (Miralax) 17 Gm Pack) 17 gm PO DAILY PRN PRN Reason: Constipation Stop: 12/08/21 22:37 Potassium Chloride (Potassium Chloride 10 Meq Tabcr) 10 meq PO DAILY [facility] Stop: 12/09/21 08:59 Last Admin: 11/10/21 10:18 Dose: 10 meq Documented by: Umeclidinium/Vilanterol (Umeclidinium/Vilanterol 62.5/25mcg 7 Puffs/Inhaler) 1 puffs INH DAILY [facility] Stop: 12/09/21 08:59 Last Admin: 11/10/21 10:21 Dose: 1 puffs Documented by: (1) Pneumonia Laterality: right Lung location: unspecified part of lung Pneumonia type: due to unspecified organism Qualified Code(s): J18.9 - Pneumonia, unspecified organism
[2021-11-10] MEDS ORDERED: VANCOMYCIN TROUGH ONE (13:30)
[2021-11-10] MEDS: VANCOMYCIN HCL 750 MG in SODIUM CHLORIDE 0.9% 250 ML IV SCH (14:42)
--- NOTE | 2021-11-10 14:54 | Pharmacy Report ---
Pharmacy Vanc AUC Short Note - Date of Service November 10, 2021 - Assessment & Plan Assessment 86 year old F receiving VANCOMYCIN + CEFEPIME for treatment of sepsis secondary to PNA vs UTI vs intraabd process MRSA nasal swab negative, making MRSA pneumonia unlikely Urine cx growing enterococcus faecalis (sensitive to pcn's, vanco, dapo, and nitrofurantoin) Sputum cx growing both strep pn and staph species, sensitivities pending EARL present on admission and appears stable SCr 1.36 --> 1.53-->1.65-->1.53 (baseline ~0.9) Plan Vancomycin * Currently receiving maint dose 750mg IV Q 24 hrs. Trough level prior to today's dose = 10.3. This dose is still predicted to achieve goal AUC/ARUN of 400-600 (with current renal impairment) at steady state with a predicted 13% risk of nephrotoxicity. Will given next dose 6 hours early however as AUC/ARUN would remain less than 400 if next dose not moved forward. * Will check level again in 2-3 days if therapy to continue CEFEPIME * eCrCl 11-29cc/min; 1gm IV Q 12 hrs recommended for pulm infnx as this regimen achieves better p'kinetic targets vs 2gm Q 24 hr regimen Pharmacy will continue to follow and will adjust dose/frequency as necessary. Thank you.
[2021-11-10] MEDS ORDERED: METOPROLOL TARTRATE 1 MG/ML VIAL IV PRN (19:29)
[2021-11-10] MEDS: FAMOTIDINE 40 MG TABLET PO SCH (19:33)
[2021-11-10] MEDS ORDERED: FUROSEMIDE INJ 20 MG/2 ML VIAL IV ONE (19:51)
--- NOTE | 2021-11-10 20:41 | XRay Report ---
SINGLE VIEW CHEST CLINICAL HISTORY: Hypoxia. FINDINGS: An AP, portable, upright chest radiograph is compared to study dated 11/09/2021 and correlate d with chest CT dated 11/08/2021. The examination is degraded by portable technique, apical lordotic po sitioning, and patient rotation. Stents project over the left thoracic outlet. The heart is mildly en larged noting atherosclerotic calcification of the thoracic aorta. There is prominence of the pulmona ry vasculature. Chronic interstitial thickening is similar to previous. There is right basilar consol idation and a small right pleural effusion. Atelectasis is noted at the left lung base. No pneumothor ax is seen. The skeletal structures are osteopenic. There are healed left-sided rib fractures. Arthri tic change is noted in the shoulders. Advanced atherosclerotic calcification is noted in the left car otid bulb. IMPRESSION: 1. Again seen is dense right basilar consolidation with a small right pleural effusion. This is uncha nged to modestly cleared as compared to yesterday. 2. Cardiomegaly with prominence of the pulmonary vasculature. Correlate clinically for evidence of fl uid overload/mild congestive failure. ACT 112: Negative or not required by law. Electronically signed by: Luis Peña M.D. 11/10/2021 8:40 PM
[2021-11-10 22:16] LABS: Alanine Aminotransferase 31 (12-78); Albumin Level 1.9 gm/dl (3.4-5.0); Aspartate Aminotransferase 49 U/L (15-37); BUN Creatinine Ratio 37.8 (10-20); Blood Urea Nitrogen 56 mg/dl (7-18); Calcium 9.1 mg/dl (8.5-10.1); Carbon Dioxide 15 mmol/L (21-32); Chloride 126 mmol/L (98-107); Creatinine Clr Calc Pharmacy 23.1 ml/min; Glucose 90 mg/dl (70-99); Magnesium 2.6 mg/dl (1.8-2.4); Potassium 4.1 mmol/L (3.5-5.1); Sodium 150 mmol/L (136-145)
[2021-11-10 22:21] LABS: Albumin Globulin Ratio 0.4 (0.9-2); Alkaline Phosphatase 68 U/L (45-117); Globulin 4.7 gm/dl (2.5-4.0); Total Protein 6.6 gm/dl (6.4-8.2); Troponin I < 0.015 ng/ml (0-0.045)
[2021-11-10 23:19] LABS: Bilirubin,Total 1.7 mg/dl (0.2-1)
[2021-11-10 23:56] LABS: HCO3 ABG 16 mmol/L (19-24); PCO2 ABG 29 mmHg (35-46); PO2 ABG 75 mmHg (80-95); pH ABG 7.34 (7.35-7.45)
[2021-11-10 23:57] LABS: Allen Test Pos (Pos)
[2021-11-11] MEDS ORDERED: DEXTROSE 5% 1,000 ML IV SCH (00:30)
[2021-11-11] MEDS ORDERED: SODIUM BICARB 8.4% INJ 50 MEQ/50 ML SYR IV STA (00:43)
[2021-11-11] MEDS ORDERED: FUROSEMIDE INJ 20 MG/2 ML VIAL IV ONE (01:17)
[2021-11-11] MEDS ORDERED: METOPROLOL TARTRATE 1 MG/ML VIAL IV PRN (03:15)
[2021-11-11] MEDS ORDERED: METOPROLOL TARTRATE 1 MG/ML VIAL IV ONE (03:26)
[2021-11-11 04:46] LABS: Mean Corpuscular Hgb Conc 32.1 g/dL (32-36)
[2021-11-11 05:00] LABS: Hematocrit (blood only) 35.8 % (37-47); Hemoglobin 11.5 g/dL (12.0-16.0); Mean Corpuscular Hemoglobin 27.4 pg (25-34); Mean Corpuscular Volume 85.4 fL (80-100); RDW Standard Deviation 70.5 fL (36.4-46.3); Red Blood Count 4.19 M/uL (4.2-5.4); White Blood Count 8.16 K/uL (4.8-10.8)
[2021-11-11 05:02] LABS: BUN Creatinine Ratio 38.2 (10-20); Calcium 9.1 mg/dl (8.5-10.1); Est GFR (Non-African American) 30.2 ml/min; Magnesium 2.5 mg/dl (1.8-2.4); Potassium 3.9 mmol/L (3.5-5.1)
[2021-11-11 05:08] LABS: Phosphorus 3.6 mg/dl (2.5-4.9); Troponin I 0.079 ng/ml (0-0.045)
[2021-11-11 05:10] LABS: Platelet Count 76 K/uL (130-400)
[2021-11-11 05:12] LABS: Anisocytosis Present; Basophils # (auto) 0.01 K/uL (0-0.2); Basophils % (auto) 0.1 %; Dohle Bodies 1+; Echinocytes 1+; Immature Granulocytes # (auto) 0.12 K/uL (0.00-0.02); Immature Granulocytes % (auto) 1.5 %; Lymphocytes # (auto) 0.37 K/uL (1.2-3.4); Lymphocytes % (auto) 4.5 %; Monocytes # (auto) 0.44 K/uL (0.11-0.59); Monocytes % (auto) 5.4 %; Neutrophils # (auto) 7.22 K/uL (1.4-6.5); Neutrophils % (auto) 88.5 %; Platelet Estimate Decreased (Normal); Toxic Granulation 1+; Toxic Vacuolation 1+
[2021-11-11] MEDS: LEVOTHYROXINE SODIUM 88 MCG TABLET PO SCH (05:49)
[2021-11-11] MEDS ORDERED: DIGOXIN 125 MCG in SYRINGE 9.5 ML IV STA (06:52)
[2021-11-11] MEDS ORDERED: DIGOXIN 500 MCG/2 ML AMP IV ONE (07:19)
[2021-11-11] MEDS: ATORVASTATIN 20 MG TAB PO SCH (07:41)
[2021-11-11] MEDS: carvediloL 6.25 MG TAB PO SCH ×2 (07:41→21:18)
[2021-11-11] MEDS: ASPIRIN 81 MG ECTAB PO SCH (07:42)
--- NOTE | 2021-11-11 07:47 | Hospitalist Progress Note ---
Date of Service November 11, 2021 Assessment & Plan Admission and Anticipated Discharge Date Admission Date: November 08, 2021 Subjective Sharifa Boone, was requiring more oxygen and she went into rapid a fib Last night. After her home coreq her HR stayed around 110;s. Ordered echo and cardiology consult for am. Didnot ordered anticoagulation because of low platelets. CXR looked same to me . Intially didnot give any lasix as BP was soft. As she was having bigemny on monitor ordered labs and it showed NA 150 and bicarb 15. Ordered abg ph 7.34. Looks like hypercholermic non anion gap metabolic acidosis(? dilutional acidosis) as she seems hyperventilating gave half amp of sodium bicarb and started on d5w@50ml/hr. As BP was better also received a dose of iv lasix 20mg and ordered lopressor prn. Seems drained about 700ml urine but still requiring 12lts oxygen and tachycardic. Talked with son(around 6am) about getting ct chest with contrast to rule out PE. He said he is going to come to hospital by 8am, to call him if anything changes. Discussed with Shahid ICU physicial assistant import manager.Mostly volume overload and recommended bipap and consider lasix with albumin for now and monitor. didnot give any more lasix as BP is on lower side. Consulted Nephrology for hypernatremia and acidosis. Morning labs Na 149, bicarb 18 cr 1.5. Also ordered a dose of digoxin as heart rates were going up .Continue to close monitor Thank you 7:16 AM Results & Data Results & Data ([facility]) Vital Signs (Past 12 Hours) Vital Signs Temp Pulse Resp BP Pulse Ox 11/11/21 07:24 104 H 11/11/21 06:15 116 H 24 94 11/11/21 06:00 117 H 31 H 91/47 L 96 11/11/21 05:43 113 H 29 H 87/44 L 97 11/11/21 05:00 117 H 28 H 133/58 L 88 L 11/11/21 04:00 117 H 25 H 101/54 L 91 11/11/21 03:46 36.7 C 11/11/21 03:29 123 H 127/52 L 11/11/21 03:25 118 H 28 H 127/52 L 90 11/11/21 02:02 106 H 30 H 88 L 11/11/21 02:00 92 H 30 H 108/42 L 89 L 11/11/21 01:43 89 30 H 124/41 L 90 11/11/21 01:13 88 17 158/45 H 92 11/11/21 00:01 92 H 15 131/61 93 11/10/21 23:59 36.9 C 90 11/10/21 22:01 88 28 H 120/36 L 94 11/10/21 21:44 90 20 109/35 L 93 11/10/21 21:25 78 28 H 125/65 93 11/10/21 20:31 111 H 24 117/61 91 11/10/21 20:00 122 H 23 109/66 91 11/10/21 19:56 117 H 26 H 68/49 L 94 11/10/21 19:48 119 H 21 78/55 L 89 L
[2021-11-11] MEDS: VANCOMYCIN HCL 750 MG in SODIUM CHLORIDE 0.9% 250 ML IV SCH (07:49)
[2021-11-11] MEDS: CEFEPIME 1,000 MG in SYRINGE 0 ML IV SCH (07:50)
[2021-11-11] MEDS: FERROUS SULFATE 325 MG TAB PO SCH (07:50)
[2021-11-11] MEDS: POTASSIUM CHLORIDE 10 MEQ TABCR PO SCH (07:50)
[2021-11-11] MEDS: UMECLIDINIUM/VILANTEROL 62.5/25MCG 7 PUFFS/INHALER INH SCH (07:50)
[2021-11-11] MEDS: LIDOCAINE 5% 1 PATCH TD SCH (07:51)
[2021-11-11] MEDS: INSULIN ASPART PER UNIT SC SCH ×3 (08:04→18:15)
[2021-11-11] MEDS ORDERED: STAT IV Infusion **Titration per Protocol STA (08:37)
--- NOTE | 2021-11-11 09:07 | Hospitalist Progress Note ---
Date of Service November 11, 2021 Assessment & Plan (1) Acute metabolic encephalopathy: Plan: Initially resolved after sepsis resuscitation, however, she has become obtunded overnight. Multiple factors likely contributing with worsening hypoxia, hypernatremia, and ongoing infections-not an exhaustive list of contributing factors. (2) Hypoxia: Plan: 2/2 pneumonia. Currently on vanc and cefepime. Notably aspiration was considered, however, speech reported no issues wtih aspiration on her examination and she initially improved on abx. Therefore, flagyl was not added. Now further hypoxia is possibly 2/2 fluid overload after resuscitation efforts and she has already received some Lasix overnight BP is low and she is hypernatremia. On dextrose at a low rate. Echo ordered for this am. Tr ansferred to ICU and phenylephrine started. Cont further management per radio time buyer. (3) Atrial fibrillation with rapid ventricular response: Plan: New onset atrial fibrillation with RVR overnight in setting of pulmonary illness and possible fluid overload after resuscitation from sepsis. Rate in in the low 100s. PE considered as she has not been on anticoagulation this admission 2/2 thrombocytopenia and has an elevated risk of DVT. However, she is too unstable to go to the CT scanner at this point. Cont rate control with metoprolol IV as needed. Echo pending and cardiology was consulted. (4) Pneumonia: Plan: Covid, flu A/B, RSV PCR negative, hypoxia as above. CT chest with right lower lobe consolidative opacities concerning for pneumonia and/or aspiration. Initially was started on vanc and Zosyn. Out of concerns for EARL, changed Zosyn to cefepime. Oxygen supplementation, wean as tolerated. Speech evaluation revealed no concerns for aspiration. Sputum culture reveals strep pneumo and MSSA. Remains on vanc and Cefepime. Antibiotic changes per ICU team at this point. (5) UTI (urinary tract infection): Plan: Vanc sensitive enterococcus. Cont abx with de-escalation per ICU team as able. (6) Sepsis: Plan: Resuscitated. Cont antibiotics. (7) Abdominal pain: Plan: Initially was resolved, however, appeared to withdraw from pain during exam this morning. She is altered and on BIPAP, actively trying to remove her mask and wi th mitts on. She is not a reliable historian at this time. During this admission, in the setting of abdominal pain with cirrhosis, hyperbilirubinemia and cholelithiasis she was also seen by gastroenterology and surgery who felt no further workup or treatments were warranted. Her elevated total bilirubin and tender abdomen was thought to be possibly secondary to infection or sepsis versus decompensated cirrhosis. As this has improved with treatment of her infection and it was more likely the former. Defer further workup to ICU team as needed. CT also found that endometrium is abnormally thickened for age which will be not emergently evaluated with a pelvic ultrasound and HOME M[employer] DISCLOSURE ACT SPECIALIST evaluation as outpatient. (8) Fall: Plan: Patient remembers falling out of her bed -likely related to weakness in setting of metabolic encephalopathy which is now clearing. Min CK elevation expected. Likely improved after IVF resuscitation. CT head, cervical spine CT, chest CT, pelvic XR without evidence of acute trauma or fracture. Cont with Fall precautions, PT OT evaluation (9) Acute kidney injury superimposed on chronic kidney disease: Plan: Cr elevated at 1.36 (baseline ~ 0.9) in setting of dehydration and sepsis. Remains 1.5 today. Lasix given overnight. Would repeat BMP q12h but defer to ICU team (10) PAD (peripheral artery disease): Plan: chronic, stable. S/p stent L subclavian, superior mesenteric artery, L iliac and fempop bypass Follows with Dr. Andrade of vascular surgery in [place] Continue aspirin, plavix, statin (11) Cirrhosis: Plan: Diagnosed in January 2021, [place], She is at risk for hypervolemia so we will be cautious with IV fluids. Possibly more hypervolemic now. Ammonia level was checked yesterday and was <10, so somnolence was not thought to be related to hepatic encephalopathy, however, this could be reassessed with declined mental status today. (12) DM II (diabetes mellitus, type II), controlled: Plan: A1c 9.4 reflecting poor overall control. Cont basal/bolus insulin while in- patient. BSG AC HS, holding Lantus at this time as she is too weak and altered to eat anything. Cont with ICU regimen for glucose control on transition to ICU care. (13) COPD (chronic obstructive pulmonary disease): Plan: chronic, stable-no wheezing. Does not require O2 at baseline. Former smoker. Continue Anoro Ellipda, Albuterol inh PRN (14) Hypothyroidism: Plan: Continue levothyroxine per home regimen. (15) Thickened endometrium: Plan: Esophageal varices with a small volume of abdominal pelvic ascites and splenomegaly indicating portal hypertension is present. There is also wall thickening of the right colon with mild pericolic infiltration which could present a nonspecific colitis. She continues on antibiotics and would appreciate gastroenterology thoughts on this. Endometrium is abnormally thickened for age which will be not emergently evaluated with a pelvic ultrasound and HOME M[employer] DISCLOSURE ACT SPECIALIST evaluation as outpatient. 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 Follow-up as outpatient for monitoring. (17) DVT prophylaxis: Plan: DVT Ppx: SCDs for now given thrombocytopenia Code status: FULL Dispo-transfer to ICU [facility] and Anticipated Discharge Date Admission Date: November 08, 2021 Subjective 86-year-old female presented with acute metabolic encephalopathy secondary to pneumonia and urinary tract infection Overnight events include worsening hypoxia with progression to BIPAP. She converted into atrial fibrillation with anticoagulation held because of low plat elets. CXR last evening appeared unchanged with persistent right sided pneumonia. Her mental status declined and labs revealed hypernatremia at 150; she was started on dextrose around midnight. She was hyperventilating at the time of the ABG and CO2 was low, pH low at 7.34. NAGMA also noted on BMP. She was given a bicarb push and was also given Lasix 20mg IV. Lactate increased to 2.1. Creatinine is still elevated around 1.5 without worsening. Two sons are at the bedside, called in by alonzo to discuss next steps. I explained to them that she was needing additional breathing support in the form of mechanical ventilation. I explained that as a full code, if resuscitation efforts were needed, she would be given compressions that may cause rib fractures and possible shocks to her heart to restart it. I explained that should she be unable to come off of a breathing machine, she may need a tracheostomy, and i explained what that meant. I explained that if we didn't do this, she has a high likelihood of mortality given her age, comorbidities and ongoing infections with new complications. As I was examining her she moaned when I palpated her abdomen, and her sons reacted as if there was something we needed to look into here. I explained to them that we had imaged her abdomen and that the GI and surgical specialists also weighed in because of some migrating abdominal tenderness since she arrived. I explained that we found her gallbladder had stones in it but no one felt this was an infection or should be further addressed. One son pointed out to me that there was a significant workup on her gallbladder last year and ultimately no one thought it should be removed. (CT further suggested R sided colon wall thickening which was felt to be portal colopathy.) When I mentioned that she was tolerating food, having nonbloody BMs and her abdomen was not distended as some of the ways we monitor how someone's abdomen is doing, one son was very quick to question her eating. I mentioned the nurse had fed her some breakfast yesterday, and that her food intake was not likely robust but that was also expected given her level of illness. He became angry and said that she looked worse yesterday than she did when he found her lying on the floor obtunded prior to admission. I tried to express empathy that I understand he would know her better than I, especially r egarding her baseline. He pointed his finger in my face and said "you are bull shitting!, you are a bull shitter!" It was around this same time that the other son mentioned they had wanted her to be at [facility] [place] from the start of the admission. After walking out of the room and informing Dr. Pena of the consult/reviewing the case with him, I went back into the room after ten minutes and asked if keren hawthorne was ok now? The son who had screamed earlier again pointed in my face and said "No! If it were up to me you would be gone!" I asked the other son to join me in the hallway and explained to him that I'm not going to be in the presence of verbal abuse. I further explained to him that regarding the transfer to [facility], I had spoken with sister Melany who was given the option and chose to keep mom there. I had informed her on HD2 when I had that conversation with her, that after she spoke with her brothers, if everyone decided to request the transfer, I would be happy to request it. I explained to him that it was the family who made the decision to keep her here. He asked me not to take it personally, and I explained to him that I care about her as my patient and it is personal. This is a very personal thing, when a family member is sick in the hospital and having complications. It is important for families to be on the same page and for me to communicate what I know about the situation as issues arise, which was what we were trying to accomplish this morning. I further updated him that Dr. Pena would be in to discuss next steps in care, and that I would be transferring her care to a different attending physician. Review of Systems Review of Systems: The patient was unable to give a ROS as she was obtunded. Physical Exam Physical Exam: CONSTITUTIONAL: WNWD, vitals as above, ill appearing, obtunded. EYES: pupils are round and equal bilaterally, normal conjunctivae, no scleral icterus ENT: external ear and nose normal NECK: trachea midline RESPIRATORY: clear to auscultation bilaterally, no crackles, rales or wheezes, normal respiratory effort CARDIOVASCULAR: regular rate and rhythm, S1 and 2 heard without murmurs, gallops or rubs, no JVD, no peripheral edema GASTROINTESTINAL: soft, protuberant but nondistended, RLQ pain to palpation. MUSCULOSKELETAL: strength 5/5 throughout, head is normocephalic and atraumatic SKIN: warm and dry NEUROLOGIC: CN 2-12 grossly intact, no sensory deficit, normal cognition, normal speech, no tremor, no gross focal deficits. PSYCHIATRIC: alert cooperative and oriented to person, place and time. Results & Data Results & Data ([facility]) Vital Signs (Past 12 Hours) Vital Signs Temp Pulse Resp BP Pulse Ox 11/11/21 07:24 104 H 11/11/21 06:15 116 H 24 94 11/11/21 06:00 117 H 31 H 91/47 L 96 11/11/21 05:43 113 H 29 H 87/44 L 97 11/11/21 05:00 117 H 28 H 133/58 L 88 L 11/11/21 04:00 117 H 25 H 101/54 L 91 11/11/21 03:46 36.7 C 11/11/21 03:29 123 H 127/52 L 11/11/21 03:25 118 H 28 H 127/52 L 90 11/11/21 02:02 106 H 30 H 88 L 11/11/21 02:00 92 H 30 H 108/42 L 89 L 11/11/21 01:43 89 30 H 124/41 L 90 11/11/21 01:13 88 17 158/45 H 92 11/11/21 00:01 92 H 15 131/61 93 11/10/21 23:59 36.9 C 90 11/10/21 22:01 88 28 H 120/36 L 94 11/10/21 21:44 90 20 109/35 L 93 11/10/21 21:25 78 28 H 125/65 93 Laboratory Results Short CBC 11/11/21 Range/Units 04:35 WBC 8.16 (4.8-10.8) K/uL Hgb 11.5 L (12.0-16.0) g/dL Hct 35.8 L (37-47) % Plt Count 76 L (130-400) K/uL BMP 11/10/21 11/11/21 21:46 04:35 Sodium 150 H 149 H Potassium 4.1 3.9 Chloride 126 H 123 H Carbon Dioxide 15 L 18 L BUN 56 H 59 H Creatinine 1.48 H 1.55 H Glucose 90 135 H Calcium 9.1 9.1 Cardiac Enzymes 11/10/21 11/11/21 Range/Units 21:46 04:35 Troponin I < 0.015 0.079 H* (0-0.045) ng/ml Liver Function 11/10/21 Range/Units 21:46 Total Bilirubin 1.7 H (0.2-1) mg/dl AST 49 H (15-37) U/L ALT 31 (12-78) Alkaline Phosphatase 68 (45-117) U/L Albumin 1.9 L (3.4-5.0) gm/dl Medications Administered Current Inpatient Medications Acetaminophen (Acetaminophen 325 Mg Tab) 650 mg PO Q4H PRN PRN Reason: Pain or Fever Stop: 12/08/21 22:37 Albuterol (Albuterol Hfa 8 Gm Inhaler) 2 puffs INH Q4H PRN PRN Reason: Wheezing Stop: 12/08/21 22:37 Aspirin (Aspirin 81 Mg Ectab) [facility] Stop: 12/09/21 08:59 Last Admin: 11/11/21 07:42 Dose: Not Given Documented by: Atorvastatin Calcium (Atorvastatin 20 Mg Tab) 20 mg PO QAM [facility] Stop: 12/09/21 08:59 Last Admin: 11/11/21 07:41 Dose: Not Given Documented by: Carvedilol (Carvedilol 6.25 Mg Tab) 6.25 mg PO BID [facility] Stop: 12/09/21 08:59 Last Admin: 11/11/21 07:41 Dose: Not Given Documented by: Clopidogrel Bisulfate (Clopidogrel Bisulfate 75 Mg Tab) 75 mg PO QAM [facility] Stop: 12/09/21 08:59 Last Admin: 11/11/21 09:40 Dose: Not Given Documented by: Dextrose (Dextrose 50% 50 Ml Syringe) 25 - 50 ml IV UD PRN; Protocol PRN Reason: Hypoglycemia Protocol Stop: 12/08/21 22:17 Famotidine (Famotidine 40 Mg Tablet) 40 mg PO HS [facility] Stop: 12/09/21 20:59 Last Admin: 11/10/21 19:33 Dose: 40 mg Documented by: Glucagon (Glucagon For Inj 1 Mg Vial) 1 mg SQ UD PRN; Protocol PRN Reason: Hypoglycemia Protocol Stop: 12/08/21 22:17 Glucose (Glucose 10 Tabs/Tube) 4 - 8 tabs PO UD PRN; Protocol PRN Reason: Hypoglycemia Protocol Stop: 12/08/21 22:17 Glucose (Glucose 40% Gel 15 Gm Tube) 15 - 30 gm PO UD PRN; Protocol PRN Reason: Hypoglycemia Protocol Stop: 12/08/21 22:17 Cefepime HCl 1,000 mg/ Syringe 11.3 mls @ 5.5 mls/min IV Q12H [facility] Stop: 11/16/21 08:59 Last Admin: 11/11/21 07:50 Dose: 5.5 mls/min Documented by: Vancomycin HCl 750 mg/ Sodium (Chloride) 265 mls @ 200 mls/hr IV Q24H [facility] Stop: 11/16/21 13:59 Last Admin: 11/11/21 07:49 Dose: 200 mls/hr Documented by: Dextrose (D5w) 1,000 mls @ 50 mls/hr IV .Q20H [facility] Stop: 12/11/21 00:29 Last Infusion: 11/11/21 02:09 Dose: 50 mls/hr Documented by: Phenylephrine HCl 20 mg/ (Dextrose) 502 mls @ 49.02 mls/hr IV .[id number] [facility]; Protocol Stop: 12/11/21 08:44 Insulin Aspart (Insulin Aspart Per Unit) 0 units SC ACHS [facility] Stop: 12/09/21 07:29 Last Admin: 11/11/21 08:04 Dose: Not Given Documented by: Insulin Glargine (Insulin Glargine Solostar 100 Units/Ml 3 Ml Pen) 0 - 8 units SC BID [facility]; Protocol Stop: 12/09/21 08:59 Last Admin: 11/11/21 09:39 Dose: Not Given Documented by: Ipratropium [place] (Ipratropium [place] Neb Soln 0.02% 2.5 Ml Vial) 0.5 mg INH Q4H PRN PRN Reason: SOB, WHEEZE Stop: 12/09/21 02:44 Levalbuterol HCl (Levalbuterol 1.25mg/0.5ml Neb) 1.25 mg INH Q4H PRN PRN Reason: SOB, WHEEZE Stop: 12/09/21 02:44 Levothyroxine Sodium (Levothyroxine Sodium 88 Mcg Tablet) 88 mcg PO DAILYBB [facility] Stop: 12/09/21 06:29 Last Admin: 11/11/21 05:49 Dose: Not Given Documented by: Metoprolol Tartrate (Metoprolol Tartrate 1 Mg/Ml Vial) 2.5 mg IV Q6H PRN PRN Reason: Tachycardia Stop: 12/11/21 03:14 Miscellaneous (Carbohydrates For Hypoglycemia ) 15 - 30 gm PO UD PRN PRN Reason: Hypoglycemia Protocol Stop: 12/08/21 22:17 Miscellaneous (Icu Protocol For Hyperglycemia) 1 ea N/A PRN PRN; Protocol PRN Reason: Hyperglycemia Protocol Stop: 11/13/21 09:17 Miscellaneous Information (Vancomycin Consult Active) 1 ea N/A UD PRN PRN Reason: Consult Stop: 12/08/21 20:31 Ondansetron HCl (Ondansetron Inj 2 Mg/Ml 2 Ml Vial) 4 mg IV Q6H PRN PRN Reason: Nausea Stop: 12/08/21 22:37 Polyethylene Glycol (Polyethylene (Miralax) 17 Gm Pack) 17 gm PO DAILY PRN PRN Reason: Constipation Stop: 12/08/21 22:37 Potassium Chloride (Potassium Chloride 10 Meq Tabcr) 10 meq PO DAILY AAKASH Stop: 12/09/21 08:59 Last Admin: 11/11/21 07:50 Dose: Not Given Documented by: Umeclidinium/Vilanterol (Umeclidinium/Vilanterol 62.5/25mcg 7 Puffs/Inhaler) 1 puffs INH DAILY AAKASH Stop: 12/09/21 08:59 Last Admin: 11/11/21 07:50 Dose: Not Given Documented by: (1) Pneumonia Laterality: right Lung location: unspecified part of lung Pneumonia type: due to unspecified organism Qualified Code(s): J18.9 - Pneumonia, unspecified organism
--- NOTE | 2021-11-11 09:17 | Gastroenterology Progress Note ---
Date of Service November 11, 2021 Assessment & Plan (1) Cholelithiasis: Plan: 86 year old female w/ history of HTN, DM, CKD, COPD, cirrhosis admitted w/ metabolic encephalopathy, EARL and fall - GI asked to evaluate for elevated LFTs DDX including secondary to infection/sepsis (pneumonia, UTI) vs decompensated cirrhosis. Regarding CT suggesting right sided colon wall thickening, this is likely secondary to portal colopathy, there is no evidence of biliary obstruction on imaging. - Appreciate hospitalists management of pneumonia/UTI - No current plan for GI procedures - If pain/tenderness more clearly RUQ then would check A HIDA w/o CCK - Can use lactulose titrated to 2-4 BMs daily - Consider Xifaxan 550 BID - Complete infectious workup Recall GI as needed. Thank you for allowing us to participate in the care of this patient. Please call with any acute changes, questions or concerns. Please see addendum below with additional recommendation from my supervising physician. (2) Cirrhosis: (3) Total bilirubin, elevated: Plan: Will follow along. Admission and Anticipated Discharge Date Admission Date: November 08, 2021 Supervising Physician Co-Signing Physician Notes Attending attestation I have seen, examined this patient, and agree with the findings and above by our mid-level provider ADAM Chicas, with the following additions: - Adm with AMS, no overt asterixis on exam. Now with worsened O2 requirements, MS likely due to metabolic issues with Na and infection - Etiology may be known infections, LFTs can be explained by underlying disease, cholestasis of sepsis given infection, possibly chronic cholecystitis. May need a HIDA to exclude, will defer to Surgery, has improved - Had 4 BM's yesterday, none today, will attempt xifaxin if can not take PO then may need lactulose enemas - Otherwise no signs of obstruction - If has diarrhea check c-diff given yesterdays history and thickening on CT Subjective Pt was seen, chart reviewed Sons at bedside. No acute changes from liver standpoint. Requiring more O2 overnight. Review of Systems Review of Systems: Unobtainable due to cognitive status Physical Exam Constitutional: WD/WN, vitals as above Respiratory: + labored breathing; no respiratory distress Cardiovascular: Rate/Rhythm: + tachycardic Results & Data ([facility]) Vital Signs (Past 12 Hours) Vital Signs Temp Pulse Resp BP Pulse Ox 11/11/21 07:24 104 H 11/11/21 06:15 116 H 24 94 11/11/21 06:00 117 H 31 H 91/47 L 96 11/11/21 05:43 113 H 29 H 87/44 L 97 11/11/21 05:00 117 H 28 H 133/58 L 88 L 11/11/21 04:00 117 H 25 H 101/54 L 91 11/11/21 03:46 36.7 C 11/11/21 03:29 123 H 127/52 L 11/11/21 03:25 118 H 28 H 127/52 L 90 11/11/21 02:02 106 H 30 H 88 L 11/11/21 02:00 92 H 30 H 108/42 L 89 L 11/11/21 01:43 89 30 H 124/41 L 90 11/11/21 01:13 88 17 158/45 H 92 11/11/21 00:01 92 H 15 131/61 93 11/10/21 23:59 36.9 C 90 11/10/21 22:01 88 28 H 120/36 L 94 11/10/21 21:44 90 20 109/35 L 93 11/10/21 21:25 78 28 H 125/65 93 Laboratory Results 11/11/21 11/11/21 11/11/21 Range/Units 07:59 06:10 04:35 WBC 8.16 (4.8-10.8) K/uL RBC 4.19 L (4.2-5.4) M/uL Hgb 11.5 L (12.0-16.0) g/dL Hct 35.8 L (37-47) % MCV 85.4 (80-100) fL MCH 27.4 (25-34) pg MCHC 32.1 (32-36) g/dL RDW Std Deviation 70.5 H (36.4-46.3) fL RDW Coeff of Daniela 23.0 H (11.5-14.5) % Plt Count 76 L (130-400) K/uL Immature Gran % (Auto) 1.5 % Neut % (Auto) 88.5 % Lymph % (Auto) 4.5 % [place] % (Auto) 5.4 % Eos % (Auto) 0.0 % Baso % (Auto) 0.1 % Neut # (Auto) 7.22 H (1.4-6.5) K/uL Lymph # (Auto) 0.37 L (1.2-3.4) K/uL [place] # (Auto) 0.44 (0.11-0.59) K/uL Eos # (Auto) 0.00 (0-0.5) K/uL Baso # (Auto) 0.01 (0-0.2) K/uL Immature Gran # (Auto) 0.12 H (0.00-0.02) K/uL Toxic Granulation 1+ Toxic Vacuolation 1+ Dohle Bodies 1+ Platelet Estimate Decreased L (Normal) Anisocytosis Present Echinocytes 1+ ABG pH (7.35-7.45) ABG pCO2 (35-46) mmHg ABG pO2 (80-95) mmHg ABG HCO3 (19-24) mmol/L ABG O2 Saturation (90-95) % ABG Base Excess (-9-1.8) mEq/L Alan Test (Pos) Oxygen Given Sodium (136-145) mmol/L Potassium (3.5-5.1) mmol/L Chloride (98-107) mmol/L Carbon Dioxide (21-32) mmol/L Anion Gap (3-11) BUN (7-18) mg/dl Creatinine (0.6-1.2) mg/dl Est Cr Clr Drug Dosing ml/min Est GFR ( Amer) ml/min Est GFR (Non-Af Amer) ml/min BUN/Creatinine Ratio (10-20) Glucose (70-99) mg/dl POC Glucose 130 H (70-99) mg/dl Lactate 2.1 H* (0.4-2.0) mmol/L Calcium (8.5-10.1) mg/dl Phosphorus (2.5-4.9) mg/dl Magnesium (1.8-2.4) mg/dl Total Bilirubin (0.2-1) mg/dl AST (15-37) U/L ALT (12-78) Alkaline Phosphatase (45-117) U/L Ammonia (11-32) umol/L Troponin I (0-0.045) ng/ml Total Protein (6.4-8.2) gm/dl Albumin (3.4-5.0) gm/dl Globulin (2.5-4.0) gm/dl Albumin/Globulin Ratio (0.9-2) TSH Vancomycin Trough (See Comment) mcg/ml 11/11/21 11/11/21 11/10/21 Range/Units 04:35 04:35 23:35 WBC (4.8-10.8) K/uL RBC (4.2-5.4) M/uL Hgb (12.0-16.0) g/dL Hct (37-47) % MCV (80-100) fL MCH (25-34) pg MCHC (32-36) g/dL RDW Std Deviation (36.4-46.3) fL RDW Coeff of Daniela (11.5-14.5) % Plt Count (130-400) K/uL Immature Gran % (Auto) % Neut % (Auto) % Lymph % (Auto) % [place] % (Auto) % Eos % (Auto) % Baso % (Auto) % Neut # (Auto) (1.4-6.5) K/uL Lymph # (Auto) (1.2-3.4) K/uL [place] # (Auto) (0.11-0.59) K/uL Eos # (Auto) (0-0.5) K/uL Baso # (Auto) (0-0.2) K/uL Immature Gran # (Auto) (0.00-0.02) K/uL Toxic Granulation Toxic Vacuolation Dohle Bodies Platelet Estimate (Normal) Anisocytosis Echinocytes ABG pH 7.34 L (7.35-7.45) ABG pCO2 29 L (35-46) mmHg ABG pO2 75 L (80-95) mmHg ABG HCO3 16 L (19-24) mmol/L ABG O2 Saturation 95.0 (90-95) % ABG Base Excess -9.0 (-9-1.8) mEq/L Alan Test Pos (Pos) Oxygen Given 11L Sodium 149 H (136-145) mmol/L Potassium 3.9 (3.5-5.1) mmol/L Chloride 123 H (98-107) mmol/L Carbon Dioxide 18 L (21-32) mmol/L Anion Gap 8.0 (3-11) BUN 59 H (7-18) mg/dl Creatinine 1.55 H (0.6-1.2) mg/dl Est Cr Clr Drug Dosing 22.0 ml/min Est GFR ( Amer) 35.0 ml/min Est GFR (Non-Af Amer) 30.2 ml/min BUN/Creatinine Ratio 38.2 H (10-20) Glucose 135 H (70-99) mg/dl POC Glucose (70-99) mg/dl Lactate (0.4-2.0) mmol/L Calcium 9.1 (8.5-10.1) mg/dl Phosphorus 3.6 (2.5-4.9) mg/dl Magnesium 2.5 H (1.8-2.4) mg/dl Total Bilirubin (0.2-1) mg/dl AST (15-37) U/L ALT (12-78) Alkaline Phosphatase (45-117) U/L Ammonia (11-32) umol/L Troponin I Pending 0.079 H* (0-0.045) ng/ml Total Protein (6.4-8.2) gm/dl Albumin (3.4-5.0) gm/dl Globulin (2.5-4.0) gm/dl Albumin/Globulin Ratio (0.9-2) TSH Pending Vancomycin Trough (See Comment) mcg/ml 11/10/21 11/10/21 11/10/21 Range/Units 21:46 20:24 18:20 WBC (4.8-10.8) K/uL RBC (4.2-5.4) M/uL Hgb (12.0-16.0) g/dL Hct (37-47) % MCV (80-100) fL MCH (25-34) pg MCHC (32-36) g/dL RDW Std Deviation (36.4-46.3) fL RDW Coeff of Daniela (11.5-14.5) % Plt Count (130-400) K/uL Immature Gran % (Auto) % Neut % (Auto) % Lymph % (Auto) % [place] % (Auto) % Eos % (Auto) % Baso % (Auto) % Neut # (Auto) (1.4-6.5) K/uL Lymph # (Auto) (1.2-3.4) K/uL [place] # (Auto) (0.11-0.59) K/uL Eos # (Auto) (0-0.5) K/uL Baso # (Auto) (0-0.2) K/uL Immature Gran # (Auto) (0.00-0.02) K/uL Toxic Granulation Toxic Vacuolation Dohle Bodies Platelet Estimate (Normal) Anisocytosis Echinocytes ABG pH (7.35-7.45) ABG pCO2 (35-46) mmHg ABG pO2 (80-95) mmHg ABG HCO3 (19-24) mmol/L ABG O2 Saturation (90-95) % ABG Base Excess (-9-1.8) mEq/L Alan Test (Pos) Oxygen Given Sodium 150 H (136-145) mmol/L Potassium 4.1 (3.5-5.1) mmol/L Chloride 126 H (98-107) mmol/L Carbon Dioxide 15 L (21-32) mmol/L Anion Gap 9.0 (3-11) BUN 56 H (7-18) mg/dl Creatinine 1.48 H (0.6-1.2) mg/dl Est Cr Clr Drug Dosing 23.1 ml/min Est GFR ( Amer) 37.0 ml/min Est GFR (Non-Af Amer) 32.0 ml/min BUN/Creatinine Ratio 37.8 H (10-20) Glucose 90 (70-99) mg/dl POC Glucose 103 H 114 H (70-99) mg/dl Lactate (0.4-2.0) mmol/L Calcium 9.1 (8.5-10.1) mg/dl Phosphorus (2.5-4.9) mg/dl Magnesium 2.6 H (1.8-2.4) mg/dl Total Bilirubin 1.7 H (0.2-1) mg/dl AST 49 H (15-37) U/L ALT 31 (12-78) Alkaline Phosphatase 68 (45-117) U/L Ammonia (11-32) umol/L Troponin I < 0.015 (0-0.045) ng/ml Total Protein 6.6 (6.4-8.2) gm/dl Albumin 1.9 L (3.4-5.0) gm/dl Globulin 4.7 H (2.5-4.0) gm/dl Albumin/Globulin Ratio 0.4 L (0.9-2) TSH Vancomycin Trough (See Comment) mcg/ml 11/10/21 11/10/21 11/10/21 Range/Units 13:14 12:32 11:33 WBC (4.8-10.8) K/uL RBC (4.2-5.4) M/uL Hgb (12.0-16.0) g/dL Hct (37-47) % MCV (80-100) fL MCH (25-34) pg MCHC (32-36) g/dL RDW Std Deviation (36.4-46.3) fL RDW Coeff of Daniela (11.5-14.5) % Plt Count (130-400) K/uL Immature Gran % (Auto) % Neut % (Auto) % Lymph % (Auto) % [place] % (Auto) % Eos % (Auto) % Baso % (Auto) % Neut # (Auto) (1.4-6.5) K/uL Lymph # (Auto) (1.2-3.4) K/uL [place] # (Auto) (0.11-0.59) K/uL Eos # (Auto) (0-0.5) K/uL Baso # (Auto) (0-0.2) K/uL Immature Gran # (Auto) (0.00-0.02) K/uL Toxic Granulation Toxic Vacuolation Dohle Bodies Platelet Estimate (Normal) Anisocytosis Echinocytes ABG pH (7.35-7.45) ABG pCO2 (35-46) mmHg ABG pO2 (80-95) mmHg ABG HCO3 (19-24) mmol/L ABG O2 Saturation (90-95) % ABG Base Excess (-9-1.8) mEq/L Alan Test (Pos) Oxygen Given Sodium (136-145) mmol/L Potassium (3.5-5.1) mmol/L Chloride (98-107) mmol/L Carbon Dioxide (21-32) mmol/L Anion Gap (3-11) BUN (7-18) mg/dl Creatinine (0.6-1.2) mg/dl Est Cr Clr Drug Dosing ml/min Est GFR ( Amer) ml/min Est GFR (Non-Af Amer) ml/min BUN/Creatinine Ratio (10-20) Glucose (70-99) mg/dl POC Glucose 102 H (70-99) mg/dl Lactate (0.4-2.0) mmol/L Calcium (8.5-10.1) mg/dl Phosphorus (2.5-4.9) mg/dl Magnesium (1.8-2.4) mg/dl Total Bilirubin (0.2-1) mg/dl AST (15-37) U/L ALT (12-78) Alkaline Phosphatase (45-117) U/L Ammonia < 10.0 L (11-32) umol/L Troponin I (0-0.045) ng/ml Total Protein (6.4-8.2) gm/dl Albumin (3.4-5.0) gm/dl Globulin (2.5-4.0) gm/dl Albumin/Globulin Ratio (0.9-2) TSH Vancomycin Trough 10.3 (See Comment) mcg/ml
[2021-11-11] MEDS ORDERED: ICU PROTOCOL FOR HYPERGLYCEMIA PRN (09:18)
--- NOTE | 2021-11-11 09:38 | Nephrology Consultation ---
Date of Consultation November 11, 2021 Assessment & Plan (1) Acute kidney injury superimposed on chronic kidney disease: stable nonoliguric stage 1 erin on early CKD 3 w/ creatinine hovering since admission mid ones and baseline about one. -supportive care including as below (2) Metabolic acidosis: minimal acidemia in the setting of sepsis > favor combined etiologies of lactic acidosis and NAGMA from saline -treat pneumonia -if further hydration indicated avoid chloride rich fluids > favor bicarb gtt to start based on today's chemistries if indicated (3) Disorder of fluid or electrolyte: hypernatremia is from relative dehydration in setting of sepsis; not likely to tolerate more aggressive fluids d/t respiratory status however. -cont D5W; avoid NS as above -monitor bmp q12-24 hr History of Present Illness Reason for Consultation: Hypernatremia, acidosis Requesting Physician: Dr. Sykes Attending Physician: Surekha Singh, History of Present Illness 86-year-old female whom I am asked to evaluate for hypernatremia and acidosis was admitted November 08 for pneumonia with sepsis and metabolic encephalopathy. Past medical history includes CKD 3 a with baseline creatinine most recently 1.0, Bullock cirrhosis, DM 2, COPD referral arterial disease status post left subc lavian, superior mesenteric artery, left iliac and femoropopliteal interventions. She was brought to the hospital after an unwitnessed fall at home, duration of time on the ground unknown. CK levels on admission 328, creatinine 1.4 and holding in the mid ones ever since; serum sodium within normal limits to last evening when it was noted to be 150, at 149 this morning. Serum bicarbonate has run in the high teens since admission. Chloride has climbed from 114 at admission to 123 today, peaked at 126 last evening. pH on ABG 7.34. Patient with chronic hyperchloremia generally just over 110 as an outpatient. Patient has had elevated LFTs treated to sepsis versus decompensated cirrhosis. GI evaluated patient and signed off. No convincing evidence of acute cholecystitis. she is currently on bipap, vanco, cefepime, D5W@ 50 ml/hr. She had 3L NS from 1/4 PM -1/5 PM. phenylephrine had been ordered but not started when I saw her at about 10 AM. She has had SBP in 60-120s range but generally 80-90s. Allergies Allergy/AdvReac Type Severity Reaction Status Date / Time vitamin E (d-alpha Allergy Intermediate ITCHY Unverified 11/08/21 15:25 tocopherol) RASH, HIVES--PER [facility] 09/21/21 ENCOUNTER amoxicillin AdvReac Intermediate STOMACH Unverified 11/10/21 14:44 UPSET--PER [facility] 09/21/21 ENCOUNTER clavulanic acid AdvReac Intermediate STOMACH Unverified 11/10/21 14:44 UPSET--PER [facility] 09/21/21 ENCOUNTER Home Medications Medication Instructions Recorded Confirmed Type albuterol sulfate 90 mcg/actuation 2 puff INHALATION Q4H PRN 04/10/19 11/08/21 History aerosol inhaler (Ventolin HFA) aspirin 81 mg tablet,delayed 81 mg PO QAM 04/10/19 11/08/21 History release (Aspirin Low Dose) atorvastatin 20 mg tablet 20 mg PO QAM 04/10/19 11/08/21 History carvedilol 6.25 mg tablet 6.25 mg PO BID 04/10/19 11/08/21 History clopidogrel 75 mg tablet 75 mg PO QAM 04/10/19 11/08/21 History levothyroxine 88 mcg tablet 88 mcg PO QAM 04/10/19 11/08/21 History losartan 50 mg tablet 50 mg PO HS 04/10/19 11/08/21 History ferrous sulfate 325 mg (65 mg 325 mg PO DAILY #30 tab 12/21/20 11/08/21 Rx iron) tablet (FeroSul) famotidine 40 mg tablet 40 mg PO HS 03/29/21 11/08/21 History lidocaine 4 % topical patch 1 patch TOPICAL DAILY 30 Days #30 03/31/21 11/08/21 Rx ea gabapentin 300 mg capsule 600 mg PO TID 11/08/21 11/08/21 History insulin degludec 200 unit/mL (3 15 unit SUBCUT QAM 11/08/21 11/08/21 History mL) subcutaneous pen (Tresiba FlexTouch U-200 insulin) ipratropium 0.5 mg-albuterol 3 mg 3 ml INHALATION DIRECTED 11/08/21 11/08/21 History (2.5 mg base)/3 mL nebulization soln potassium chloride 10 mEq 10 meq PO DAILY 11/08/21 11/08/21 History capsule,extended release sitagliptin 100 mg tablet (Januvia) 100 mg PO DAILY 11/08/21 11/08/21 History umeclidinium 62.5 mcg-vilanterol 1 inh INHALATION DAILY 11/08/21 11/08/21 History 25 mcg/actuation powdr for inhalation (Anoro Ellipta) Patient History Medical History Abdominal pain Anemia Cirrhosis DM II (diabetes mellitus, type II), controlled Emphysema Epigastric abdominal pain HLD (hyperlipidemia) Hypothyroidism PAD (peripheral artery disease) Shortness of breath Surgical History History of appendectomy History of intravascular stent placement Reported Left subclavian, superior mesenteric artery, L iliac, L fempop bypass - [facility] Andrade [facility] Family History Other Diabetes Hypertension Social History Smoking Status: Unknown if ever smoked Hx Alcohol Use: No Hx Substance Use: No Preferred Language: Kittitian Communication Ability: Effective 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 Beliefs That Will Affect Care: None marital status: / Current Living Situation: Alone Current Living Situation Comment: unable to determine How many Children do You have: 3 Feels Safe at Home: Yes Assistive Devices: Nebulizer and Oxygen - Continuous Review of Systems Review of Systems: Unobtainable due to reduced consciousness Physical Exam Constitutional: well developed, well nourished and + mechanically ventilated (on bipap); no acute distress Eyes: EOM intact bilaterally ENMT: Ears: no external ear abnormality Nose: no external nose abnormality Mouth: + dry oral mucous membranes Neck: no nuchal rigidity Respiratory: normal respiratory effort Auscultation: + diminished lung sounds Cardiovascular: RRR, no murmur, no edema Gastrointestinal (Abdomen): Inspection/Auscultation: normal bowel sounds Percussion/Palpation: abdomen soft; abdomen nontender Musculoskeletal: Extremities: strength 5/5 throughout Skin: no rashes, warm and dry Neurologic: shay, fluent speech, no tremor Genitourinary: isaacs w/ ample urine Results & Data ([facility]) Vital Signs (Past 12 Hours) Vital Signs Temp Pulse Resp BP Pulse Ox 11/11/21 07:24 104 H 11/11/21 06:15 116 H 24 94 11/11/21 06:00 117 H 31 H 91/47 L 96 11/11/21 05:43 113 H 29 H 87/44 L 97 11/11/21 05:00 117 H 28 H 133/58 L 88 L 11/11/21 04:00 117 H 25 H 101/54 L 91 11/11/21 03:46 36.7 C 11/11/21 03:29 123 H 127/52 L 11/11/21 03:25 118 H 28 H 127/52 L 90 11/11/21 02:02 106 H 30 H 88 L 11/11/21 02:00 92 H 30 H 108/42 L 89 L 11/11/21 01:43 89 30 H 124/41 L 90 11/11/21 01:13 88 17 158/45 H 92 11/11/21 00:01 92 H 15 131/61 93 11/10/21 23:59 36.9 C 90 11/10/21 22:01 88 28 H 120/36 L 94 11/10/21 21:44 90 20 109/35 L 93 Laboratory Results 11/11/21 04:35 11/11/21 04:35 Diagnostic Findings TTE this admission Moderate cLVH, EF 55 to 60%, no significant valvular pathology CT abdomen pelvis with IV contrast admission Lung bases: The heart is mildly enlarged and without pericardial effusion. The coronary arteries are densely calcified. There is dense airspace consolidation throughout the right lower lobe. Atelectasis/consolidation is also seen in the lingula. Dependent atelectasis is noted on the left. No pleural effusion is id entified. A small hiatal hernia is noted. Esophageal varices are identified. Liver: The contrast-enhanced liver is cirrhotic in morphology and heterogeneous in attenuation. There is nodularity of the hepatic surface contour and hypertrophy of the left lobe. There is no intrahepatic biliary ductal di latation. The hepatic veins and portal veins are patent. Gallbladder: The gallbladder is distended, and there are calcified gallstones in the region of the gallbladder neck. There is mild pericholecystic infiltration. Spleen: The spleen is enlarged measuring 15.2 cm in length. Pancreas: Unremarkable. Adrenal glands: The adrenal glands appear hyperemic. Kidneys: The contrast enhanced kidneys are atrophic and without hydronephrosis. The kidneys enhance symmetrically. A 3.5 cm cyst is noted on the left. Abdominal vasculature: There is advanced atherosclerotic calcification of the abdominal aorta. An infrarenal abdominal aortic aneurysm measures 3.6 x 3.8 cm (AP x transverse). Stents are noted in the superior mesenteric artery and the left external iliac artery. Bowel: There is mild to moderate colonic diverticulosis without CT evidence of acute diverticulitis. No bowel obstruction is seen. Wall thickening and pericolonic infiltration is suggested involving the right colon. The appendix is not visualized. Peritoneum: Typical for pneumonia. There is trace perisplenic ascites, trace free fluid in the left paracolic gutter, and a small volume of Pelvic ascites. No intraperitoneal free air is identified. Lymphadenopathy: None. Pelvic viscera: The bladder is decompressed around a Isaacs catheter and not well evaluated. The endometrium appears thickened for age measuring up to 1.5 cm. Fi broids are suggested. No adnexal lesion is seen. Skeletal structures: The skeletal structures are osteopenic. There is a mild acute to subacute inferior endplate compression fracture of T10. Mild to m oderate lumbosacral spondylosis is observed. No lytic or blastic lesions are seen. IMPRESSION: 1. Streak and motion compromised examination. 2. There is dense airspace consolidation throughout the right lower lobe typical for pneumonia. 3. The gallbladder is distended and there are calcified gallstones in the region of the gallbladder neck. There is mild pericholecystic infiltration. Correlate with clinical and laboratory findings for evidence of acute cholecystitis. Right upper quadrant ultrasound could be considered for further assessment. 4. There is an acute to subacute inferior endplate compression fracture of T10. 5. The liver is cirrhotic in morphology and heterogeneous in attenuation. 6. Esophageal varices, a small volume of abdominopelvic ascites, and splenomegaly indicate portal hypertension. 7. There is wall thickening of the right colon with mild pericolonic infiltration. This could represent portal colopathy versus a nonspecific colitis. Clinical correlation will be required. 8. There is a 3.6 x 3.8 cm infrarenal abdominal aortic aneurysm. 9. The endometrium is abnormally thickened for age measuring up to 15 mm. This is not well evaluated by CT. Nonemergent pelvic ultrasound and gynecology evaluation is recommended for further assessment. 10. Additional findings as above. cxr 11/10 FINDINGS: An AP, portable, upright chest radiograph is compared to study dated 11/09/2021 and correlated with chest CT dated 11/08/2021. The examination is degraded by portable technique, apical lordotic positioning, and patient rotation. Stents project over the left thoracic outlet. The heart is mildly enlarged noting atherosclerotic calcification of the thoracic aorta. There is prominence of the pulmonary vasculature. Chronic interstitial thickening is similar to previous. There is right basilar consolidation and a small right pleural effusion. Atelectasis is noted at the left lung base. No pneumothorax is seen. The skeletal structures are osteopenic. There are healed left-sided rib fractures. Arthritic change is noted in the shoulders. Advanced atherosclerotic calcification is noted in the left carotid bulb. IMPRESSION: 1. Again seen is dense right basilar consolidation with a small right pleural effusion. This is unchanged to modestly cleared as compared to yesterday. 2. Cardiomegaly with prominence of the pulmonary vasculature. Correlate clinically for evidence of fluid overload/mild congestive failure.
[2021-11-11] MEDS: INSULIN GLARGINE SOLOSTAR 100 UNITS/ML 3 ML PEN SC SCH ×2 (09:39→21:17)
[2021-11-11] MEDS: CLOPIDOGREL BISULFATE 75 MG TAB PO SCH (09:40)
--- NOTE | 2021-11-11 09:51 | Cardiology Consultation ---
Date of Consultation November 11, 2021 Assessment & Plan (1) Atrial fibrillation with rapid ventricular response: (2) Disorder of fluid or electrolyte: (3) Sepsis: (4) Cirrhosis: (5) Acute metabolic encephalopathy: (6) PAD (peripheral artery disease): (7) DM II (diabetes mellitus, type II), controlled: The patient spontaneously converted to normal sinus rhythm. Of note is that she is n.p.o. and not taking any of her oral medications including carvedilol. She has not been able to take Plavix and is on no current anticoagulation even DVT prophylaxis. I will speak to the primary service regarding the above. History of Present Illness Attending Physician: Surekha Singh, History of Present Illness This is an 86-year-old female who lives independently and was in her usual state of health. She has good family support and when her sons could not contact her they went to investigate and found her on the floor. She was not unconscious but just could not get off the floor. Apparently fell out of bed and was too weak to get up. She has been admitted to the hospital. She does have an extensive history of peripheral vascular disease but no cardiac history. The patient has been here for several days being worked up for metabolic encephalopathy. Consideration has been given for pneumonia, UTI and cholecystitis. Last night she went into atrial fibrillation for which we were asked to see her. This morning she spontaneously converted to normal sinus rhythm. She is currently hemodynamically stable on BiPAP. Her sons are at the bedside. She appears to be in no acute distress. Allergies Allergy/AdvReac Type Severity Reaction Status Date / Time vitamin E (d-alpha Allergy Intermediate ITCHY Unverified 11/08/21 15:25 tocopherol) RASH, HIVES--PER [facility] 09/21/21 ENCOUNTER amoxicillin AdvReac Intermediate STOMACH Unverified 11/10/21 14:44 UPSET--PER [facility] 09/21/21 ENCOUNTER clavulanic acid AdvReac Intermediate STOMACH Unverified 11/10/21 14:44 UPSET--PER [facility] 09/21/21 ENCOUNTER Home Medications Medication Instructions Recorded Confirmed Type albuterol sulfate 90 mcg/actuation 2 puff INHALATION Q4H PRN 04/10/19 11/08/21 History aerosol inhaler (Ventolin HFA) aspirin 81 mg tablet,delayed 81 mg PO QAM 04/10/19 11/08/21 History release (Aspirin Low Dose) atorvastatin 20 mg tablet 20 mg PO QAM 04/10/19 11/08/21 History carvedilol 6.25 mg tablet 6.25 mg PO BID 04/10/19 11/08/21 History clopidogrel 75 mg tablet 75 mg PO QAM 04/10/19 11/08/21 History levothyroxine 88 mcg tablet 88 mcg PO QAM 04/10/19 11/08/21 History losartan 50 mg tablet 50 mg PO HS 04/10/19 11/08/21 History ferrous sulfate 325 mg (65 mg 325 mg PO DAILY #30 tab 12/21/20 11/08/21 Rx iron) tablet (FeroSul) famotidine 40 mg tablet 40 mg PO HS 03/29/21 11/08/21 History lidocaine 4 % topical patch 1 patch TOPICAL DAILY 30 Days #30 03/31/21 11/08/21 Rx ea gabapentin 300 mg capsule 600 mg PO TID 11/08/21 11/08/21 History insulin degludec 200 unit/mL (3 15 unit SUBCUT QAM 11/08/21 11/08/21 History mL) subcutaneous pen (Tresiba FlexTouch U-200 insulin) ipratropium 0.5 mg-albuterol 3 mg 3 ml INHALATION DIRECTED 11/08/21 11/08/21 History (2.5 mg base)/3 mL nebulization soln potassium chloride 10 mEq 10 meq PO DAILY 11/08/21 11/08/21 History capsule,extended release sitagliptin 100 mg tablet (Januvia) 100 mg PO DAILY 11/08/21 11/08/21 History umeclidinium 62.5 mcg-vilanterol 1 inh INHALATION DAILY 11/08/21 11/08/21 History 25 mcg/actuation powdr for inhalation (Anoro Ellipta) Patient History Medical History Abdominal pain Anemia Cirrhosis DM II (diabetes mellitus, type II), controlled Emphysema Epigastric abdominal pain HLD (hyperlipidemia) Hypothyroidism PAD (peripheral artery disease) Shortness of breath Surgical History History of appendectomy History of intravascular stent placement Reported Left subclavian, superior mesenteric artery, L iliac, L fempop bypass - Dr Andrade - [place] Family History Other Diabetes Hypertension Social History Smoking Status: Unknown if ever smoked Hx Alcohol Use: No Hx Substance Use: No Preferred Language: Burmese Communication Ability: Effective Application Support Analyst Required: No Beliefs That Will Affect Care: None marital status: / Current Living Situation: Alone Current Living Situation Comment: unable to determine How many Children do You have: 3 Feels Safe at Home: Yes Assistive Devices: Oxygen - Continuous Review of Systems Review of Systems: Review of Systems: See HPI for pertinent positives. All other 10 point review of systems are negative. Physical Exam Physical Exam: General: On BiPAP Head: normocephalic, no masses, lesions, tenderness or abnormalities Eyes: conjunctiva are pink and non-injected, sclera clear Neck: supple, no adenopathy, no bruits, normal jugular venous pulse, no hepatojugular reflux Chest: normal shape and normal respiratory effort Lungs: clear to auscultation and percussion Cardiac Exam: - regular rate & rhythm, no murmurs gallops or rubs - normal S1, normal S2 Pulses: 2(+) throughout Abdomen: abdomen soft, non-tender, no abnormal masses and no hepatosplenomegaly Musculoskeletal: no gait disturbance, no joint inflammation, no deforming arthritis Extremities: no edema and no cyanosis Neuro: grossly normal exam Results & Data ([facility]) Vital Signs (Past 12 Hours) Vital Signs Temp Pulse Resp BP Pulse Ox 11/11/21 09:30 72 27 H 103/52 L 93 11/11/21 09:15 96 H 24 94 11/11/21 09:10 107 H 22 103/52 L 95 11/11/21 09:00 110 H 46 H 102/55 L 96 11/11/21 08:45 119 H 22 90 11/11/21 08:30 116 H 25 H 128/71 88 L 11/11/21 08:15 122 H 23 88 L 11/11/21 08:08 112 H 26 H 122/87 89 L 11/11/21 08:00 36.5 C 116 H 23 66/50 L 91 11/11/21 07:45 100 H 24 96 11/11/21 07:30 95 H 24 61/35 L 95 11/11/21 07:24 104 H 11/11/21 07:15 110 H 26 H 94 11/11/21 06:15 116 H 24 94 11/11/21 06:00 117 H 31 H 91/47 L 96 11/11/21 05:43 113 H 29 H 87/44 L 97 11/11/21 05:00 117 H 28 H 133/58 L 88 L 11/11/21 04:00 117 H 25 H 101/54 L 91 11/11/21 03:46 36.7 C 11/11/21 03:29 123 H 127/52 L 11/11/21 03:25 118 H 28 H 127/52 L 90 11/11/21 02:02 106 H 30 H 88 L 11/11/21 02:00 92 H 30 H 108/42 L 89 L 11/11/21 01:43 89 30 H 124/41 L 90 11/11/21 01:13 88 17 158/45 H 92 11/11/21 00:01 92 H 15 131/61 93 11/10/21 23:59 36.9 C 90 11/10/21 22:01 88 28 H 120/36 L 94 Laboratory Results Laboratory Results - last 24 hr 11/10/21 11/10/21 11/10/21 11:33 12:32 13:14 WBC RBC Hgb Hct MCV MCH MCHC RDW Std Deviation RDW Coeff of Daniela Plt Count Immature Gran % (Auto) Neut % (Auto) Lymph % (Auto) Pine % (Auto) Eos % (Auto) Baso % (Auto) Neut # (Auto) Lymph # (Auto) Pine # (Auto) Eos # (Auto) Baso # (Auto) Immature Gran # (Auto) Toxic Granulation Toxic Vacuolation Dohle Bodies Platelet Estimate Anisocytosis Echinocytes ABG pH ABG pCO2 ABG pO2 ABG HCO3 ABG O2 Saturation ABG Base Excess Alan Test Oxygen Given Sodium Potassium Chloride Carbon Dioxide Anion Gap BUN Creatinine Est Cr Clr Drug Dosing Est GFR ( Amer) Est GFR (Non-Af Amer) BUN/Creatinine Ratio Glucose POC Glucose 102 H Lactate Calcium Phosphorus Magnesium Total Bilirubin AST ALT Alkaline Phosphatase Ammonia < 10.0 L Troponin I Total Protein Albumin Globulin Albumin/Globulin Ratio TSH Vancomycin Trough 10.3 11/10/21 11/10/21 11/10/21 18:20 20:24 21:46 WBC RBC Hgb Hct MCV MCH MCHC RDW Std Deviation RDW Coeff of Daniela Plt Count Immature Gran % (Auto) Neut % (Auto) Lymph % (Auto) Pine % (Auto) Eos % (Auto) Baso % (Auto) Neut # (Auto) Lymph # (Auto) Pine # (Auto) Eos # (Auto) Baso # (Auto) Immature Gran # (Auto) Toxic Granulation Toxic Vacuolation Dohle Bodies Platelet Estimate Anisocytosis Echinocytes ABG pH ABG pCO2 ABG pO2 ABG HCO3 ABG O2 Saturation ABG Base Excess Alan Test Oxygen Given Sodium 150 H Potassium 4.1 Chloride 126 H Carbon Dioxide 15 L Anion Gap 9.0 BUN 56 H Creatinine 1.48 H Est Cr Clr Drug Dosing 23.1 Est GFR ( Amer) 37.0 Est GFR (Non-Af Amer) 32.0 BUN/Creatinine Ratio 37.8 H Glucose 90 POC Glucose 114 H 103 H Lactate Calcium 9.1 Phosphorus Magnesium 2.6 H Total Bilirubin 1.7 H AST 49 H ALT 31 Alkaline Phosphatase 68 Ammonia Troponin I < 0.015 Total Protein 6.6 Albumin 1.9 L Globulin 4.7 H Albumin/Globulin Ratio 0.4 L TSH Vancomycin Trough 11/10/21 11/11/21 11/11/21 23:35 04:35 04:35 WBC RBC Hgb Hct MCV MCH MCHC RDW Std Deviation RDW Coeff of Daniela Plt Count Immature Gran % (Auto) Neut % (Auto) Lymph % (Auto) Pine % (Auto) Eos % (Auto) Baso % (Auto) Neut # (Auto) Lymph # (Auto) Pine # (Auto) Eos # (Auto) Baso # (Auto) Immature Gran # (Auto) Toxic Granulation Toxic Vacuolation Dohle Bodies Platelet Estimate Anisocytosis Echinocytes ABG pH 7.34 L ABG pCO2 29 L ABG pO2 75 L ABG HCO3 16 L ABG O2 Saturation 95.0 ABG Base Excess -9.0 Alan Test Pos Oxygen Given 11L Sodium 149 H Potassium 3.9 Chloride 123 H Carbon Dioxide 18 L Anion Gap 8.0 BUN 59 H Creatinine 1.55 H Est Cr Clr Drug Dosing 22.0 Est GFR ( Amer) 35.0 Est GFR (Non-Af Amer) 30.2 BUN/Creatinine Ratio 38.2 H Glucose 135 H POC Glucose Lactate Calcium 9.1 Phosphorus 3.6 Magnesium 2.5 H Total Bilirubin AST ALT Alkaline Phosphatase Ammonia Troponin I 0.079 H* Pending Total Protein Albumin Globulin Albumin/Globulin Ratio TSH Pending Vancomycin Trough 11/11/21 11/11/21 11/11/21 04:35 06:10 07:59 WBC 8.16 RBC 4.19 L Hgb 11.5 L Hct 35.8 L MCV 85.4 MCH 27.4 MCHC 32.1 RDW Std Deviation 70.5 H RDW Coeff of Daniela 23.0 H Plt Count 76 L Immature Gran % (Auto) 1.5 Neut % (Auto) 88.5 Lymph % (Auto) 4.5 Pine % (Auto) 5.4 Eos % (Auto) 0.0 Baso % (Auto) 0.1 Neut # (Auto) 7.22 H Lymph # (Auto) 0.37 L Pine # (Auto) 0.44 Eos # (Auto) 0.00 Baso # (Auto) 0.01 Immature Gran # (Auto) 0.12 H Toxic Granulation 1+ Toxic Vacuolation 1+ Dohle Bodies 1+ Platelet Estimate Decreased L Anisocytosis Present Echinocytes 1+ ABG pH ABG pCO2 ABG pO2 ABG HCO3 ABG O2 Saturation ABG Base Excess Alan Test Oxygen Given Sodium Potassium Chloride Carbon Dioxide Anion Gap BUN Creatinine Est Cr Clr Drug Dosing Est GFR ( Amer) Est GFR (Non-Af Amer) BUN/Creatinine Ratio Glucose POC Glucose 130 H Lactate 2.1 H* Calcium Phosphorus Magnesium Total Bilirubin AST ALT Alkaline Phosphatase Ammonia Troponin I Total Protein Albumin Globulin Albumin/Globulin Ratio TSH Vancomycin Trough Medications Administered Current Inpatient Medications Acetaminophen (Acetaminophen 325 Mg Tab) 650 mg PO Q4H PRN PRN Reason: Pain or Fever Stop: 12/08/21 22:37 Albuterol (Albuterol Hfa 8 Gm Inhaler) 2 puffs INH Q4H PRN PRN Reason: Wheezing Stop: 12/08/21 22:37 Aspirin (Aspirin 81 Mg Ectab) 81 mg PO [facility] Stop: 12/09/21 08:59 Last Admin: 11/11/21 07:42 Dose: Not Given Documented by: Atorvastatin Calcium (Atorvastatin 20 Mg Tab) [facility] [place] Stop: 12/09/21 08:59 Last Admin: 11/11/21 07:41 Dose: Not Given Documented by: Carvedilol (Carvedilol 6.25 Mg Tab) 6.25 mg PO BID [facility] Stop: 12/09/21 08:59 Last Admin: 11/11/21 07:41 Dose: Not Given Documented by: Clopidogrel Bisulfate (Clopidogrel Bisulfate 75 Mg Tab) 75 mg PO QAM [facility] Stop: 12/09/21 08:59 Last Admin: 11/11/21 09:40 Dose: Not Given Documented by: Dextrose (Dextrose 50% 50 Ml Syringe) 25 - 50 ml IV UD PRN; Protocol PRN Reason: Hypoglycemia Protocol Stop: 12/08/21 22:17 Famotidine (Famotidine 40 Mg Tablet) 40 mg PO HS [facility] Stop: 12/09/21 20:59 Last Admin: 11/10/21 19:33 Dose: 40 mg Documented by: Glucagon (Glucagon For Inj 1 Mg Vial) 1 mg SQ UD PRN; Protocol PRN Reason: Hypoglycemia Protocol Stop: 12/08/21 22:17 Glucose (Glucose 10 Tabs/Tube) 4 - 8 tabs PO UD PRN; Protocol PRN Reason: Hypoglycemia Protocol Stop: 12/08/21 22:17 Glucose (Glucose 40% Gel 15 Gm Tube) 15 - 30 gm PO UD PRN; Protocol PRN Reason: Hypoglycemia Protocol Stop: 12/08/21 22:17 Cefepime HCl 1,000 mg/ Syringe 11.3 mls @ 5.5 mls/min IV Q12H AAKASH Stop: 11/16/21 08:59 Last Admin: 11/11/21 07:50 Dose: 5.5 mls/min Documented by: Vancomycin HCl 750 mg/ Sodium (Chloride) 265 mls @ 200 mls/hr IV Q24H AAKASH Stop: 11/16/21 13:59 Last Admin: 11/11/21 07:49 Dose: 200 mls/hr Documented by: Dextrose (D5w) 1,000 mls @ 50 mls/hr IV .Q20H [facility] Stop: 12/11/21 00:29 Last Infusion: 11/11/21 02:09 Dose: 50 mls/hr Documented by: Phenylephrine HCl 20 mg/ (Dextrose) 502 mls @ 49.02 mls/hr IV .[id number] [facility]; Protocol Stop: 12/11/21 08:44 Insulin Aspart (Insulin Aspart Per Unit) 0 units SC ACHS [facility] Stop: 12/09/21 07:29 Last Admin: 11/11/21 08:04 Dose: Not Given Documented by: Insulin Glargine (Insulin Glargine Solostar 100 Units/Ml 3 Ml Pen) 0 - 8 units SC BID [facility]; Protocol Stop: 12/09/21 08:59 Last Admin: 11/11/21 09:39 Dose: Not Given Documented by: Ipratropium [place] (Ipratropium [place] Neb Soln 0.02% 2.5 Ml Vial) 0.5 mg INH Q4H PRN PRN Reason: SOB, WHEEZE Stop: 12/09/21 02:44 Levalbuterol HCl (Levalbuterol 1.25mg/0.5ml Neb) 1.25 mg INH Q4H PRN PRN Reason: SOB, WHEEZE Stop: 12/09/21 02:44 Levothyroxine Sodium (Levothyroxine Sodium 88 Mcg Tablet) [facility]: 12/09/21 06:29 Last Admin: 11/11/21 05:49 Dose: Not Given Documented by: Metoprolol Tartrate (Metoprolol Tartrate 1 Mg/Ml Vial) 2.5 mg IV Q6H PRN PRN Reason: Tachycardia Stop: 12/11/21 03:14 Miscellaneous (Carbohydrates For Hypoglycemia ) 15 - 30 gm PO UD PRN PRN Reason: Hypoglycemia Protocol Stop: 12/08/21 22:17 Miscellaneous (Icu Protocol For Hyperglycemia) 1 ea N/A PRN PRN; Protocol PRN Reason: Hyperglycemia Protocol Stop: 11/13/21 09:17 Miscellaneous Information (Vancomycin Consult Active) 1 ea N/A UD PRN PRN Reason: Consult Stop: 12/08/21 20:31 Ondansetron HCl (Ondansetron Inj 2 Mg/Ml 2 Ml Vial) 4 mg IV Q6H PRN PRN Reason: Nausea Stop: 12/08/21 22:37 Polyethylene Glycol (Polyethylene (Miralax) 17 Gm Pack) 17 gm PO DAILY PRN PRN Reason: Constipation Stop: 12/08/21 22:37 Potassium Chloride (Potassium Chloride 10 Meq Tabcr) 10 meq PO DAILY [facility] Stop: 12/09/21 08:59 Last Admin: 11/11/21 07:50 Dose: Not Given Documented by: Umeclidinium/Vilanterol (Umeclidinium/Vilanterol 62.5/25mcg 7 Puffs/Inhaler) 1 puffs INH DAILY [facility]AKASH Stop: 12/09/21 08:59 Last Admin: 11/11/21 07:50 Dose: Not Given Documented by:
[2021-11-11 11:04] LABS: Thyroid Stimulating Hormone 1.04 uIu/ml (0.300-4.500); Troponin I 0.077 ng/ml (0-0.045)
--- NOTE | 2021-11-11 11:17 | Critical Care Consultation ---
Date of Consultation November 11, 2021 Assessment & Plan (1) UTI (urinary tract infection): (2) Atrial fibrillation with rapid ventricular response: (3) Acute metabolic encephalopathy: (4) COPD (chronic obstructive pulmonary disease): --Acute hypoxic respiratory failure Secondary to multilobar pneumonia with right-sided pleural effusion Sputum culture growing strep as well as MSSA COVID-19 PCR negative Influenza A/B negative RSV negative Continue with antibiotics --Metabolic encephalopathy Multifactorial likely from underlying sepsis Ammonia level negative Head CT at a time of presentation 11/08/2021 was negative for any active issues Aspiration precautions -- EARL on CKD Likely from sepsis Monitor BUN/creatinine Avoid nephrotoxic medications Strict ins and outs --A. fib with RVR Patient spontaneously converted to sinus rhythm after a sinus pause Continue with beta-blockers for rate control --Liver cirrhosis CT of the abdomen pelvis shows liver with cirrhotic morphology Splenomegaly as well as esophageal varices are appreciated on the CAT scan Patient's labs also go to her cirrhosis --Thrombocytopenia Likely from underlying cirrhosis Continue to monitor --Hypernatremia with hyperchloremia Not a good prognostic sign in the patient with cirrhotic-like features Continue with D5 water --Prophylaxis VTE: IPC GI: Pepcid Lines: Peripheral Diet: N.p.o. Plan: Change antibiotics to Unasyn Aspiration precautions. Patient ammonia is negative. Continue with D5 water Continue with BiPAP right now If there is a clinical worsening will intubate the patient. Case was discussed with family with bedside Case was also discussed with Dr. Singh I have personally spent 61 minutes of critical care time in the direct management of this patient. This is a life/limb threatening event. This includes time spent evaluating patient, direct bedside care, chart review, placing orders, interpretation of diagnostic studies, discussion with consultants, patient, and family members, as well as other required patient management activities. This time is exclusive of all separately billable procedures, and teaching time and separate from and in addition to any other critical care service time. Please note the above document was generated using voice recognition software. It may contain grammatical, syntax or spelling errors. History of Present Illness Attending Physician: Surekha Singh, DO History of Present Illness 86-year-old female past medical history of peripheral artery disease s/p stent to the left subclavian as well as supra mesenteric artery, left iliac and femoropopliteal bypass, hypertension, dyslipidemia, CKD, diabetes, COPD was admitted to the hospital because of sepsis from right lower lobe pneumonia as well as possible cholecystitis and UTI Patient was getting antibiotics on the floor but she was getting more confused and this reason she was transferred to the ICU At the time of examination patient's family which included 2 sons were in the room. She was on BiPAP breathing in the low 20s saturating 91-92% on 40% FiO2 She was waking up but not following commands She denied any headache, no chest pain She had a Garza catheter in place. She was not A. fib. She did have soft blood pressure prior to me seeing her but at the time of examination her map was in the high 60s. Patient is a poor historian. History obtained from family as well as the previous chart Allergies Allergy/AdvReac Type Severity Reaction Status Date / Time vitamin E (d-alpha Allergy Intermediate ITCHY Unverified 11/08/21 15:25 tocopherol) RASH, HIVES--PER [facility] 09/21/21 ENCOUNTER amoxicillin AdvReac Intermediate STOMACH Unverified 11/10/21 14:44 UPSET--PER [facility] 09/21/21 ENCOUNTER clavulanic acid AdvReac Intermediate STOMACH Unverified 11/10/21 14:44 UPSET--PER [facility] 09/21/21 ENCOUNTER Home Medications Medication Instructions Recorded Confirmed Type albuterol sulfate 90 mcg/actuation 2 puff INHALATION Q4H PRN 04/10/19 11/08/21 History aerosol inhaler (Ventolin HFA) aspirin 81 mg tablet,delayed 81 mg PO QAM 04/10/19 11/08/21 History release (Aspirin Low Dose) atorvastatin 20 mg tablet 20 mg PO QAM 04/10/19 11/08/21 History carvedilol 6.25 mg tablet 6.25 mg PO BID 04/10/19 11/08/21 History clopidogrel 75 mg tablet 75 mg PO QAM 04/10/19 11/08/21 History levothyroxine 88 mcg tablet 88 mcg PO QAM 04/10/19 11/08/21 History losartan 50 mg tablet 50 mg PO HS 04/10/19 11/08/21 History ferrous sulfate 325 mg (65 mg 325 mg PO DAILY #30 tab 12/21/20 11/08/21 Rx iron) tablet (FeroSul) famotidine 40 mg tablet 40 mg PO HS 03/29/21 11/08/21 History lidocaine 4 % topical patch 1 patch TOPICAL DAILY 30 Days #30 03/31/21 11/08/21 Rx ea gabapentin 300 mg capsule 600 mg PO TID 11/08/21 11/08/21 History insulin degludec 200 unit/mL (3 15 unit SUBCUT QAM 11/08/21 11/08/21 History mL) subcutaneous pen (Tresiba FlexTouch U-200 insulin) ipratropium 0.5 mg-albuterol 3 mg 3 ml INHALATION DIRECTED 11/08/21 11/08/21 History (2.5 mg base)/3 mL nebulization soln potassium chloride 10 mEq 10 meq PO DAILY 11/08/21 11/08/21 History capsule,extended release sitagliptin 100 mg tablet (Januvia) 100 mg PO DAILY 11/08/21 11/08/21 History umeclidinium 62.5 mcg-vilanterol 1 inh INHALATION DAILY 11/08/21 11/08/21 History 25 mcg/actuation powdr for inhalation (Anoro Ellipta) Patient History Medical History Abdominal pain Anemia Cirrhosis DM II (diabetes mellitus, type II), controlled Emphysema Epigastric abdominal pain HLD (hyperlipidemia) Hypothyroidism PAD (peripheral artery disease) Shortness of breath Surgical History History of appendectomy History of intravascular stent placement Reported Left subclavian, superior mesenteric artery, L iliac, L fempop bypass - 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 Beliefs That Will Affect Care: None marital status: / Current Living Situation: Alone Current Living Situation Comment: unable to determine How many Children do You have: 3 Feels Safe at Home: Yes Assistive Devices: Oxygen - Continuous Review of Systems Review of Systems: Unobtainable due to cognitive status Physical Exam Physical Exam: Constitutional: No acute distress HEENT: EOMI, PERRLA Respiratory system: Decreased air entry bilaterally, no wheeze, rhonchi, positive crackles bilateral lower lobes more on the right side CVS: S1-S2 positive, no murmurs or gallops, irregular Abdomen: Soft, nontender, nondistended, positive bowel sounds x4 Extremities: +2 pulses bilaterally radialis/ dorsalis pedis, no cyanosis, +1 pitting edema Neuro: Opens her eyes to voice but does not follow commands Psych: Unable to assess G/U: Positive Garza Skin: no rashes, warm and dry Lymphatic: no cervical or axillary lymphadenopathy Results & Data Results & Data ([facility]) Vital Signs (Past 12 Hours) Vital Signs Temp Pulse Resp BP Pulse Ox 11/11/21 09:30 72 27 H 103/52 L 93 11/11/21 09:15 96 H 24 94 11/11/21 09:10 107 H 22 103/52 L 95 11/11/21 09:00 110 H 46 H 102/55 L 96 11/11/21 08:45 119 H 22 90 11/11/21 08:30 116 H 25 H 128/71 88 L 11/11/21 08:15 122 H 23 88 L 11/11/21 08:08 112 H 26 H 122/87 89 L 11/11/21 08:00 36.5 C 116 H 23 66/50 L 91 11/11/21 07:45 100 H 24 96 11/11/21 07:30 95 H 24 61/35 L 95 11/11/21 07:24 104 H 11/11/21 07:15 110 H 26 H 94 11/11/21 06:15 116 H 24 94 11/11/21 06:00 117 H 31 H 91/47 L 96 11/11/21 05:43 113 H 29 H 87/44 L 97 11/11/21 05:00 117 H 28 H 133/58 L 88 L 11/11/21 04:00 117 H 25 H 101/54 L 91 11/11/21 03:46 36.7 C 11/11/21 03:29 123 H 127/52 L 11/11/21 03:25 118 H 28 H 127/52 L 90 11/11/21 02:02 106 H 30 H 88 L 01/06/22 02:00 92 H 30 H 108/42 L 89 L 11/11/21 01:43 89 30 H 124/41 L 90 11/11/21 01:13 88 17 158/45 H 92 11/11/21 00:01 92 H 15 131/61 93 11/10/21 23:59 36.9 C 90 Laboratory Results 11/11/21 04:35 11/11/21 04:35 Coding Level of Care Code Critical Care 1st 30-74 mins Diagnoses UTI (urinary tract infection) N39.0 Atrial fibrillation with rapid ventricular response I48.91 Acute metabolic encephalopathy G93.41 COPD (chronic obstructive pulmonary disease) J44.9 Time Spent (min) 61
[2021-11-11] MEDS: AMPICILLIN/SULBACTAM SOD 3,000 MG in 0.9 % SODIUM CHLORIDE 100 ML IV SCH (11:51)
[2021-11-11] MEDS: FAMOTIDINE 40 MG TABLET PO SCH (21:17)
--- NOTE | 2021-11-11 21:47 | Electrocardiogram Report ---
Test Reason : Blood Pressure : / mmHG Vent. Rate : 127 BPM Atrial Rate : 107 BPM P-R Int : 000 ms QRS Dur : 096 ms QT Int : 314 ms P-R-T Axes : 000 -28 078 degrees QTc Int : 456 ms Atrial fibrillation with rapid ventricular response Possible Septal infarct (cited on or before 02-JUL-2021) Abnormal ECG When compared with ECG of 08-NOV-2021 15:03, Atrial fibrillation has replaced Sinus rhythm Incomplete right bundle branch block is no longer Present Questionable change in initial forces of Septal leads Confirmed by Marquise Silva ([id number]) on 11/11/2021 9:46:57 PM Referred By: REFERRED SELF Confirmed By:Marquise Silva
[2021-11-12] MEDS: AMPICILLIN/SULBACTAM SOD 3,000 MG in 0.9 % SODIUM CHLORIDE 100 ML IV SCH ×3 (00:04→23:44)
[2021-11-12] MEDS: INSULIN ASPART PER UNIT SC SCH ×7 (00:04→23:43)
[2021-11-12 00:32] LABS: Cdiff Antigen Positive; Cdiff Toxin A+B Negative Cdiff Toxin (Negative)
[2021-11-12 04:56] LABS: Mean Corpuscular Hgb Conc 30.9 g/dL (32-36); Nucleated RBC # (auto) 0.03 K/uL (0-0); Nucleated RBC % (auto) 0.5 %
[2021-11-12 05:13] LABS: Hematocrit (blood only) 33.7 % (37-47); Hemoglobin 10.4 g/dL (12.0-16.0); Mean Corpuscular Volume 87.5 fL (80-100); RDW Coefficient of Variation 23.3 % (11.5-14.5); RDW Standard Deviation 73.3 fL (36.4-46.3); Red Blood Count 3.85 M/uL (4.2-5.4); White Blood Count 6.28 K/uL (4.8-10.8)
[2021-11-12 05:16] LABS: BUN Creatinine Ratio 36.5 (10-20); Calcium 9.5 mg/dl (8.5-10.1); Creatinine Clr Calc Pharmacy 21.1 ml/min; Est GFR (African American) 32.7 ml/min; Est GFR (Non-African American) 28.2 ml/min; Magnesium 2.7 mg/dl (1.8-2.4); Phosphorus 3.2 mg/dl (2.5-4.9); Potassium 3.4 mmol/L (3.5-5.1)
[2021-11-12 05:31] LABS: Platelet Count 79 K/uL (130-400)
[2021-11-12 05:33] LABS: Anisocytosis Present; Basophils # (auto) 0.01 K/uL (0-0.2); Basophils % (auto) 0.2 %; Echinocytes 1+; Eosinophils # (auto) 0.01 K/uL (0-0.5); Eosinophils % (auto) 0.2 %; Immature Granulocytes # (auto) 0.02 K/uL (0.00-0.02); Immature Granulocytes % (auto) 0.3 %; Lymphocytes # (auto) 0.46 K/uL (1.2-3.4); Lymphocytes % (auto) 7.3 %; Monocytes # (auto) 0.43 K/uL (0.11-0.59); Monocytes % (auto) 6.8 %; Neutrophils # (auto) 5.35 K/uL (1.4-6.5); Neutrophils % (auto) 85.2 %; Platelet Estimate Decreased (Normal)
[2021-11-12] MEDS: POTASSIUM CHLORIDE / WTR 10 MEQ/100 ML PLCT IV SCH ×2 (06:36→08:07)
[2021-11-12] MEDS: LEVOTHYROXINE SODIUM 88 MCG TABLET PO SCH (06:37)
--- NOTE | 2021-11-12 07:59 | XRay Report ---
SINGLE VIEW CHEST CLINICAL HISTORY: Follow-up pleural effusion. FINDINGS: An AP, portable, upright chest radiograph is compared to study dated 11/10/2021 and correlate d with chest CT dated 11/08/2021. The examination is degraded by portable technique, apical lordotic po sitioning, and patient rotation. Stents project over the left thoracic outlet. The heart is mildly en larged noting atherosclerotic calcification of the thoracic aorta. There is prominence of the pulmona ry vasculature. Chronic interstitial thickening is similar to previous. There is a layering right ple ural effusion with airspace consolidation throughout the right lung. Milder consolidation/atelectasis is seen at the left lung base. No pneumothorax is seen. The skeletal structures are osteopenic. Ther e are healed left-sided rib fractures. Arthritic change is noted in the shoulders. IMPRESSION: 1. Again seen is a layering right pleural effusion with airspace consolidation throughout the right l [place]. This has increased as compared to 11/10/2021. 2. Cardiomegaly with prominence of the pulmonary vasculature. Correlate clinically for evidence of fl uid overload/mild congestive failure. 3. Left basilar opacities are unchanged. ACT 112: Negative or not required by law. Electronically signed by: Luis Peña M.D. 11/12/2021 7:58 AM
[2021-11-12] MEDS: ATORVASTATIN 20 MG TAB PO SCH (08:07)
[2021-11-12] MEDS: carvediloL 6.25 MG TAB PO SCH ×2 (08:07→20:29)
[2021-11-12] MEDS: ASPIRIN 81 MG ECTAB PO SCH (08:07)
[2021-11-12] MEDS: CLOPIDOGREL BISULFATE 75 MG TAB PO SCH (08:08)
[2021-11-12] MEDS: INSULIN GLARGINE SOLOSTAR 100 UNITS/ML 3 ML PEN SC SCH ×2 (08:08→20:29)
[2021-11-12] MEDS: UMECLIDINIUM/VILANTEROL 62.5/25MCG 7 PUFFS/INHALER INH SCH (08:08)
[2021-11-12] MEDS: POTASSIUM CHLORIDE 10 MEQ TABCR PO SCH (08:08)
[2021-11-12] MEDS ORDERED: WATER STERILE IV ONE (08:33)
--- NOTE | 2021-11-12 08:48 | Nephrology Progress Note ---
Date of Service November 12, 2021 Assessment & Plan (1) Acute kidney injury superimposed on chronic kidney disease: Plan: stable nonoliguric stage 1 erin on early CKD 3 w/ creatinine hovering since admission mid ones and baseline about one. -supportive care including as below (2) Metabolic acidosis: Plan: minimal acidemia in the setting of sepsis > favor combined etiologies of lactic acidosis and NAGMA from saline; chemistries improved slightly -treat pneumonia -if further hydration indicated avoid chloride rich fluids > favor bicarb gtt to start based on today's chemistries if indicated (3) Disorder of fluid or electrolyte: Plan: hypernatremia is from relative dehydration in setting of sepsis; not likely to tolerate more aggressive fluids d/t respiratory status however. >changed IVF orders this am to D5W w/ 50 mEq/L sodium bicarb and 40 mEq/L K at 125 mL/hr -defer to critical care or primary to monitor BMP q12-24 hr; repeat ordered for 1600 Admission and Anticipated Discharge Date Admission Date: November 08, 2021 Subjective off of bipap and on 02nc when I saw her this am; opens eyes to noxious stimuli; minimally interactive Review of Systems Review of Systems: All systems reviewed & are unremarkable except as noted in Subjective Physical Exam Constitutional: well developed, well nourished and + lethargic; no acute distress Eyes: EOM intact bilaterally ENMT: Ears: no external ear abnormality Nose: no external nose abnormality Mouth: + dry oral mucous membranes Neck: no nuchal rigidity Respiratory: normal respiratory effort Auscultation: + diminished lung sounds Cardiovascular: RRR, no murmur, no edema Gastrointestinal (Abdomen): Inspection/Auscultation: normal bowel sounds Percussion/Palpation: abdomen soft; abdomen nontender Musculoskeletal: Extremities: strength 5/5 throughout Skin: no rashes, warm and dry Neurologic: shay, does not speak Genitourinary: isaacs w/ ample urine Results & Data ([facility]) Vital Signs (Past 12 Hours) Vital Signs Temp Pulse Resp BP Pulse Ox 11/12/21 08:00 61 11/12/21 06:19 37.0 C 11/12/21 06:01 58 L 15 144/48 H 95 11/12/21 05:30 61 16 143/40 H 96 11/12/21 05:00 61 18 150/39 H 95 11/12/21 04:00 60 16 139/49 L 95 11/12/21 03:44 60 29 H 95 11/12/21 03:31 58 L 16 147/63 H 89 L 11/12/21 02:31 58 L 15 115/55 L 95 11/12/21 02:01 63 18 141/68 H 95 11/12/21 01:30 65 18 129/59 L 95 11/12/21 01:00 68 18 174/70 H 94 11/12/21 00:01 66 18 150/66 H 94 11/12/21 00:00 36.8 C 11/11/21 23:59 68 11/11/21 23:30 65 20 148/60 H 94 11/11/21 23:01 59 L 20 95 11/11/21 22:30 63 19 123/49 L 94 11/11/21 22:00 68 17 134/54 L 91 11/11/21 21:31 72 19 159/40 H 93 11/11/21 21:00 74 15 115/85 92 Laboratory Results 11/12/21 03:51 11/12/21 03:51
--- NOTE | 2021-11-12 09:44 | Cardiology Progress Note ---
Date of Service November 12, 2021 Assessment & Plan (1) Disorder of fluid or electrolyte: (2) Sepsis: (3) Cirrhosis: (4) Acute metabolic encephalopathy: (5) PAD (peripheral artery disease): (6) DM II (diabetes mellitus, type II), controlled: (7) PAF (paroxysmal atrial fibrillation): Plan: The patient has been in normal sinus rhythm for 24 hours. The echocardiogram results are on the chart. LV function is well-preserved and no significant valvular pathology. No additional recommendations at this time. Admission and Anticipated Discharge Date Admission Date: November 08, 2021 Subjective The patient remains confused. Review of Systems Review of Systems: Not obtainable Physical Exam Physical Exam: General: Confused Head: normocephalic, no masses, lesions, tenderness or abnormalities Eyes: conjunctiva are pink and non-injected, sclera clear Neck: supple, no adenopathy, no bruits, normal jugular venous pulse, no hepatojugular reflux Chest: normal shape and normal respiratory effort Lungs: clear to auscultation and percussion Cardiac Exam: - regular rate & rhythm, no murmurs gallops or rubs - normal S1, normal S2 Pulses: 2(+) throughout Abdomen: abdomen soft, non-tender, no abnormal masses and no hepatosplenomegaly Musculoskeletal: no gait disturbance, no joint inflammation, no deforming arthritis Extremities: no edema and no cyanosis Neuro: grossly normal exam Results & Data ([facility]) Vital Signs (Past 12 Hours) Vital Signs Temp Pulse Resp BP Pulse Ox 11/12/21 08:00 61 11/12/21 06:19 37.0 C 11/12/21 06:01 58 L 15 144/48 H 95 11/12/21 05:30 61 16 143/40 H 96 11/12/21 05:00 61 18 150/39 H 95 11/12/21 04:00 60 16 139/49 L 95 11/12/21 03:44 60 29 H 95 11/12/21 03:31 58 L 16 147/63 H 89 L 11/12/21 02:31 58 L 15 115/55 L 95 11/12/21 02:01 63 18 141/68 H 95 11/12/21 01:30 65 18 129/59 L 95 11/12/21 01:00 68 18 174/70 H 94 11/12/21 00:01 66 18 150/66 H 94 11/12/21 00:00 36.8 C 11/11/21 23:59 68 11/11/21 23:30 65 20 148/60 H 94 11/11/21 23:01 59 L 20 95 11/11/21 22:30 63 19 123/49 L 94 11/11/21 22:00 68 17 134/54 L 91 Laboratory Results Laboratory Results - last 24 hr 11/11/21 11/11/21 11/11/21 09:37 10:19 11:49 WBC RBC Hgb Hct MCV MCH MCHC RDW Std Deviation RDW Coeff of Daniela Plt Count Immature Gran % (Auto) Neut % (Auto) Lymph % (Auto) Blaine % (Auto) Eos % (Auto) Baso % (Auto) Neut # (Auto) Lymph # (Auto) Blaine # (Auto) Eos # (Auto) Baso # (Auto) Immature Gran # (Auto) Absolute Nucleated RBC Nucleated RBC % (auto) Platelet Estimate Anisocytosis Echinocytes Sodium Potassium Chloride Carbon Dioxide Anion Gap BUN Creatinine Est Cr Clr Drug Dosing Est GFR ( Amer) Est GFR (Non-Af Amer) BUN/Creatinine Ratio Glucose POC Glucose 166 H Calcium Phosphorus Magnesium Ammonia < 10.0 L Troponin I 0.077 H* Procalcitonin TSH 1.040 Stl C. diff Tox B Gene Stl C.difficile Tox A&B 11/11/21 11/11/21 11/11/21 18:09 18:10 21:14 WBC RBC Hgb Hct MCV MCH MCHC RDW Std Deviation RDW Coeff of Daniela Plt Count Immature Gran % (Auto) Neut % (Auto) Lymph % (Auto) Blaine % (Auto) Eos % (Auto) Baso % (Auto) Neut # (Auto) Lymph # (Auto) Blaine # (Auto) Eos # (Auto) Baso # (Auto) Immature Gran # (Auto) Absolute Nucleated RBC Nucleated RBC % (auto) Platelet Estimate Anisocytosis Echinocytes Sodium Potassium Chloride Carbon Dioxide Anion Gap BUN Creatinine Est Cr Clr Drug Dosing Est GFR ( Amer) Est GFR (Non-Af Amer) BUN/Creatinine Ratio Glucose POC Glucose 241 H 255 H 235 H Calcium Phosphorus Magnesium Ammonia Troponin I Procalcitonin TSH Stl C. diff Tox B Gene Stl C.difficile Tox A&B 11/11/21 11/11/2122 22:30 23:59 03:51 WBC RBC Hgb Hct MCV MCH MCHC RDW Std Deviation RDW Coeff of Daniela Plt Count Immature Gran % (Auto) Neut % (Auto) Lymph % (Auto) Blaine % (Auto) Eos % (Auto) Baso % (Auto) Neut # (Auto) Lymph # (Auto) Blaine # (Auto) Eos # (Auto) Baso # (Auto) Immature Gran # (Auto) Absolute Nucleated RBC Nucleated RBC % (auto) Platelet Estimate Anisocytosis Echinocytes Sodium 148 H Potassium 3.4 L Chloride 121 H Carbon Dioxide 20 L Anion Gap 7.0 BUN 60 H Creatinine 1.64 H Est Cr Clr Drug Dosing 21.1 Est GFR ( Amer) 32.7 Est GFR (Non-Af Amer) 28.2 BUN/Creatinine Ratio 36.5 H Glucose 167 H POC Glucose 199 H Calcium 9.5 Phosphorus 3.2 Magnesium 2.7 H Ammonia Troponin I Procalcitonin TSH Stl C. diff Tox B Gene Positive Cdiff Gene H Stl C.difficile Tox A&B Negative Cdiff Toxin 11/12/21 11/12/21 11/12/21 03:51 03:51 04:00 WBC 6.28 RBC 3.85 L Hgb 10.4 L Hct 33.7 L MCV 87.5 MCH 27.0 MCHC 30.9 L RDW Std Deviation 73.3 H RDW Coeff of Daniela 23.3 H Plt Count 79 L Immature Gran % (Auto) 0.3 Neut % (Auto) 85.2 Lymph % (Auto) 7.3 Blaine % (Auto) 6.8 Eos % (Auto) 0.2 Baso % (Auto) 0.2 Neut # (Auto) 5.35 Lymph # (Auto) 0.46 L Blaine # (Auto) 0.43 Eos # (Auto) 0.01 Baso # (Auto) 0.01 Immature Gran # (Auto) 0.02 Absolute Nucleated RBC 0.03 H Nucleated RBC % (auto) 0.5 Platelet Estimate Decreased L Anisocytosis Present Echinocytes 1+ Sodium Potassium Chloride Carbon Dioxide Anion Gap BUN Creatinine Est Cr Clr Drug Dosing Est GFR ( Amer) Est GFR (Non-Af Amer) BUN/Creatinine Ratio Glucose POC Glucose 153 H Calcium Phosphorus Magnesium Ammonia Troponin I Procalcitonin 13.16 H TSH Stl C. diff Tox B Gene Stl C.difficile Tox A&B 11/12/21 07:43 WBC RBC Hgb Hct MCV MCH MCHC RDW Std Deviation RDW Coeff of Daniela Plt Count Immature Gran % (Auto) Neut % (Auto) Lymph % (Auto) Blaine % (Auto) Eos % (Auto) Baso % (Auto) Neut # (Auto) Lymph # (Auto) Blaine # (Auto) Eos # (Auto) Baso # (Auto) Immature Gran # (Auto) Absolute Nucleated RBC Nucleated RBC % (auto) Platelet Estimate Anisocytosis Echinocytes Sodium Potassium Chloride Carbon Dioxide Anion Gap BUN Creatinine Est Cr Clr Drug Dosing Est GFR ( Amer) Est GFR (Non-Af Amer) BUN/Creatinine Ratio Glucose POC Glucose 156 H Calcium Phosphorus Magnesium Ammonia Troponin I Procalcitonin TSH Stl C. diff Tox B Gene Stl C.difficile Tox A&B Medications Administered Current Inpatient Medications Acetaminophen (Acetaminophen 325 Mg Tab) 650 mg PO Q4H PRN PRN Reason: Pain or Fever Stop: 12/08/21 22:37 Albuterol (Albuterol Hfa 8 Gm Inhaler) 2 puffs INH Q4H PRN PRN Reason: Wheezing Stop: 12/08/21 22:37 Aspirin (Aspirin 81 Mg Ectab) 81 mg PO QAM [facility] Stop: 12/09/21 08:59 Last Admin: 11/12/21 08:07 Dose: Not Given Documented by: Atorvastatin Calcium (Atorvastatin 20 Mg Tab) 20 mg PO QAM [facility] Stop: 12/09/21 08:59 Last Admin: 11/12/21 08:07 Dose: Not Given Documented by: Carvedilol (Carvedilol 6.25 Mg Tab) 6.25 mg PO BID [facility] Stop: 12/09/21 08:59 Last Admin: 11/12/21 08:07 Dose: Not Given Documented by: Clopidogrel Bisulfate (Clopidogrel Bisulfate 75 Mg Tab) 75 mg PO QAM [facility] Stop: 12/09/21 08:59 Last Admin: 11/12/21 08:08 Dose: Not Given Documented by: Dextrose (Dextrose 50% 50 Ml Syringe) 25 - 50 ml IV UD PRN; Protocol PRN Reason: Hypoglycemia Protocol Stop: 12/08/21 22:17 Famotidine (Famotidine 40 Mg Tablet) 40 mg PO HS [facility] Stop: 12/09/21 20:59 Last Admin: 11/11/21 21:17 Dose: Not Given Documented by: Glucagon (Glucagon For Inj 1 Mg Vial) 1 mg SQ UD PRN; Protocol PRN Reason: Hypoglycemia Protocol Stop: 12/08/21 22:17 Glucose (Glucose 10 Tabs/Tube) 4 - 8 tabs PO UD PRN; Protocol PRN Reason: Hypoglycemia Protocol Stop: 12/08/21 22:17 Glucose (Glucose 40% Gel 15 Gm Tube) 15 - 30 gm PO UD PRN; Protocol PRN Reason: Hypoglycemia Protocol Stop: 12/08/21 22:17 Heparin Sodium (Porcine) (Heparin Sod 5,000 Unit/0.5 Ml Vial) 5,000 units SQ Q12 AAKASH Stop: 12/12/21 08:59 Phenylephrine HCl 20 mg/ (Dextrose) 502 mls @ 49.02 mls/hr IV .[id number] [facility]; Protocol Stop: 12/11/21 08:44 Ampicillin Sodium/Sulbactam Sodium 3,000 mg/ Sodium Chloride 108 mls @ 216 mls/hr IV Q12H [facility] Stop: 11/18/21 10:59 Last Infusion: 11/12/21 00:44 Dose: Infused Documented by: Sodium Bicarbonate 50 meq/Potassium Acetate 40 meq/Dextrose 1,070 mls @ 125 mls/hr IV .[id number] [facility] Stop: 12/12/21 09:14 Insulin Aspart (Insulin Aspart Per Unit) 0 units SC Q4 [facility] Stop: 12/12/21 00:00 Last Admin: 11/12/21 07:53 Dose: Not Given Documented by: Insulin Glargine (Insulin Glargine Solostar 100 Units/Ml 3 Ml Pen) 0 - 8 units SC BID [facility]; Protocol Stop: 12/09/21 08:59 Last Admin: 11/12/21 08:08 Dose: 5 units Documented by: Ipratropium [place] (Ipratropium [place] Neb Soln 0.02% 2.5 Ml Vial) 0.5 mg INH Q4H PRN PRN Reason: SOB, WHEEZE Stop: 12/09/21 02:44 Levalbuterol HCl (Levalbuterol 1.25mg/0.5ml Neb) 1.25 mg INH Q4H PRN PRN Reason: SOB, WHEEZE Stop: 12/09/21 02:44 Levothyroxine Sodium (Levothyroxine Sodium 88 Mcg Tablet) 88 mcg PO DAILYBB [facility] Stop: 12/09/21 06:29 Last Admin: 11/12/21 06:37 Dose: 88 mcg Documented by: Metoprolol Tartrate (Metoprolol Tartrate 1 Mg/Ml Vial) 2.5 mg IV Q6H PRN PRN Reason: Tachycardia Stop: 12/11/21 03:14 Miscellaneous (Carbohydrates For Hypoglycemia ) 15 - 30 gm PO UD PRN PRN Reason: Hypoglycemia Protocol Stop: 12/08/21 22:17 Miscellaneous (Icu Protocol For Hyperglycemia) 1 ea N/A PRN PRN; Protocol PRN Reason: Hyperglycemia Protocol Stop: 11/13/21 09:17 Ondansetron HCl (Ondansetron Inj 2 Mg/Ml 2 Ml Vial) 4 mg IV Q6H PRN PRN Reason: Nausea Stop: 12/08/21 22:37 Polyethylene Glycol (Polyethylene (Miralax) 17 Gm Pack) 17 gm PO DAILY PRN PRN Reason: Constipation Stop: 12/08/21 22:37 Potassium Chloride (Potassium Chloride 10 Meq Tabcr) 10 meq PO DAILY [facility] Stop: 12/09/21 08:59 Last Admin: 11/12/21 08:08 Dose: Not Given Documented by: Umeclidinium/Vilanterol (Umeclidinium/Vilanterol 62.5/25mcg 7 Puffs/Inhaler) 1 puffs INH DAILY [facility] Stop: 12/09/21 08:59 Last Admin: 11/12/21 08:08 Dose: 1 puffs Documented by:
[2021-11-12] MEDS: SODIUM BICARBONATE IV SCH ×3 (09:47→23:44)
[2021-11-12] MEDS: POTASSIUM ACETATE IV SCH ×3 (09:47→23:44)
[2021-11-12] MEDS: DEXTROSE 5% IV SCH ×3 (09:47→23:44)
[2021-11-12] MEDS ORDERED: PHARMACY GLYCEMIC MGMT CONSULT PRN (10:50)
[2021-11-12] MEDS: PHENYLEPHRINE HCL 20 MG in DEXTROSE 5% 500 ML IV SCH (11:03)
[2021-11-12] MEDS: HEPARIN SOD 5,000 UNIT/0.5 ML VIAL SQ SCH ×2 (11:04→20:29)
[2021-11-12] MEDS: cefTRIAXone SODIUM 1,000 MG in DEXTROSE 5% 50 ML IV SCH (11:20)
--- NOTE | 2021-11-12 11:50 | Pharmacy Report ---
Pharmacy Glycemic Short Note 2 - Date of Service November 12, 2021 - Glycemic Short BSG Results (Last 24 hours): 11/11/21 11/11/21 11/11/21 11:49 18:09 18:10 Glucose POC Glucose 166 H 241 H 255 H 11/11/21 11/11/21 11/12/21 21:14 23:59 03:51 Glucose 167 H POC Glucose 235 H 199 H 11/12/21 11/12/21 04:00 07:43 Glucose POC Glucose 153 H 156 H OUTPATIENT ANTIDIABETIC REGIMEN: * Tresiba 15 units Q AM * Sitagliptin 100mg PO daily * A1c = 9.4% 11/09/21 ASSESSMENT: * Type 2 diabetic admitted for sepsis secondary to multifocal pneumonia, UTI * Patient has been transferred to ICU * Nephrology has ordered dextrose containing IVFs (D5W + 50mEq Bicarb + 40mEq K Tom) to run at 125cc/hr for metabolic acidosis, hypernatremia. * BSGs had been well controlled until yesterday afternoon, suspect deterioration in control was secondary to dextrose provision in IVs used to provide free wa ter. * Plan to continue with scaled Lantus dosing BID in current dose as she has required little basal insulin this admission due to poor PO intake * Plan to adjust Novolog dosing to Q 4 hrs, provide a scheduled dose of Novolog while in goal range on dextrose containing fluids to help cover the 25gm carbs provided every 4 hours. This scale can be converted back to traditional CF/CR dosing when dextrose containing IVFs d/c'd or rate reduced PLAN FOR INPATIENT GLYCEMIC CONTROL: * Hold outpatient oral diabetes medications (sitagliptin) * Basal insulin * Lantus 0-8 units SQ BID per scale * Bolus insulin * NovoLog per scale Q 4 hrs while on current dextrose containing IVFs, please use carb ratio indicated as well: PLAN FOR DISCHARGE: * to be determined
--- NOTE | 2021-11-12 13:52 | Critical Care Progress Note ---
Date of Service November 12, 2021 Assessment & Plan (1) UTI (urinary tract infection): (2) Atrial fibrillation with rapid ventricular response: (3) Acute metabolic encephalopathy: (4) COPD (chronic obstructive pulmonary disease): Plan: --Acute hypoxic respiratory failure Secondary to multilobar pneumonia with right-sided pleural effusion Sputum culture growing strep as well as MSSA On Unasyn Was on vancomycin --> changed to Rocephin for strep coverage on 11/12/2021 COVID-19 PCR negative Influenza A/B negative RSV negative Procalcitonin: 39 --> 13 C. difficile antigen positive, toxin negative Continue with antibiotics --Metabolic encephalopathy Multifactorial likely from underlying sepsis Ammonia level negative Head CT at a time of presentation 11/08/2021 was negative for any active issues Aspiration precautions -- EARL on CKD Likely from sepsis Monitor BUN/creatinine Avoid nephrotoxic medications Strict ins and outs --A. fib with RVR Patient spontaneously converted to sinus rhythm after a sinus pause Continue with beta-blockers for rate control --Hypothyroidism Change levothyroxine to IV --Liver cirrhosis CT of the abdomen pelvis shows liver with cirrhotic morphology Splenomegaly as well as esophageal varices are appreciated on the CAT scan Patient's labs also go to her cirrhosis --COPD Continue with Anoro --Thrombocytopenia Likely from underlying cirrhosis Continue to monitor --Hypernatremia with hyperchloremia Not a good prognostic sign in the patient with cirrhotic-like features Continue with D5 water --Prophylaxis VTE: Heparin GI: Pepcid Lines: Peripheral Diet: N.p.o. Plan: In/out: +158, urine output 1300 Patient's hypokalemia is being replaced Patient has been started on bicarb drip with potassium in it by nephrology. Patient's procalcitonin is improving. Rocephin has been added for strep coverage as we do not have sensitivity of strep. Continue with Unasyn for MSSA Overall prognosis is guarded given the patient has multiorgan failure which includes liver cirrhosis, right pneumonia as well as CKD Strict ins and outs. Levothyroxine will be changed to IV I have personally spent 38 minutes of critical care time in the direct management of this patient. This is a life/limb threatening event. This includes time spent evaluating patient, direct bedside care, chart review, placing orders, interpretation of diagnostic studies, discussion with consultants, patient, and family members, as well as other required patient management activities. This time is exclusive of all separately billable procedures, and teaching time and separate from and in addition to any other critical care service time. Please note the above document was generated using voice recognition software. It may contain grammatical, syntax or spelling errors. Admission and Anticipated Discharge Date Admission Date: November 08, 2021 Subjective Patient seen examined at bedside. No acute distress Patient was on nasal cannula saturating 93-94% at the time of examination She wakes up to her name. Does not follow any commands Denies any headache, no chest pain Review of Systems Review of Systems: All systems reviewed & are unremarkable except as noted in Subjective and Unobtainable due to cognitive status Physical Exam Physical Exam: Constitutional: No acute distress HEENT: EOMI, PERRLA Respiratory system: Decreased air entry bilaterally, no wheeze, rhonchi, positive crackles bilateral lower lobes more on the right side CVS: S1-S2 positive, no murmurs or gallops, irregular Abdomen: Soft, nontender, nondistended, positive bowel sounds x4, obese Extremities: +2 pulses bilaterally radialis/ dorsalis pedis, no cyanosis, +1 pitting edema Neuro: Opens her eyes to voice, oriented to self Psych: Unable to assess G/U: Positive Garza Skin: no rashes, warm and dry Lymphatic: no cervical or axillary lymphadenopathy Results & Data Results & Data ([facility]) Vital Signs (Past 12 Hours) Vital Signs Temp Pulse Resp BP Pulse Ox 11/12/21 11:12 62 18 145/44 H 92 11/12/21 11:00 57 L 21 93 11/12/21 10:30 57 L 24 133/40 L 91 11/12/21 10:00 58 L 16 133/48 L 91 11/12/21 09:30 61 21 157/69 H 94 11/12/21 09:01 60 21 153/51 H 93 11/12/21 09:00 62 18 93 11/12/21 08:30 65 29 H 159/82 H 90 11/12/21 08:00 57 L 20 148/49 H 93 11/12/21 07:30 57 L 10 L 137/46 L 94 11/12/21 07:00 57 L 19 151/53 H 95 11/12/21 06:30 59 L 20 136/43 L 94 11/12/21 06:19 37.0 C 11/12/21 06:01 58 L 15 144/48 H 95 11/12/21 05:30 61 16 143/40 H 96 11/12/21 05:00 61 18 150/39 H 95 11/12/21 04:00 60 16 139/49 L 95 11/12/21 03:44 60 29 H 95 11/12/21 03:31 58 L 16 147/63 H 89 L 11/12/21 02:31 58 L 15 115/55 L 95 11/12/21 02:01 63 18 141/68 H 95 Laboratory Results 11/12/21 03:51 11/12/21 03:51 Coding Level of Care Code Critical Care 1st 30-74 mins Diagnoses UTI (urinary tract infection) N39.0 Atrial fibrillation with rapid ventricular response I48.91 Acute metabolic encephalopathy G93.41 COPD (chronic obstructive pulmonary disease) J44.9 Time Spent (min) 38
--- NOTE | 2021-11-12 16:03 | Communication Note ---
Date of Service: November 12, 2021 Critical CARE addendum: I had a discussion with patient's daughter today at bedside. I discussed patient's current condition as well as comorbidities that the patient had when she came to the hospital. She has better understanding the patient's chronic comorbidities and the current situation. She would like to continue with the treatment that we are giving her but in case of cardiac arrest no CPR and no intubation. The same thing was discussed with patient's son yesterday and they were waiting for patient's sister to come in to make the decision. I will change the patient status of DNR/DNI. We will continue with the current management which we are giving the patient. Please note the above document was generated using voice recognition software. It may contain grammatical, syntax or spelling errors.Any formal questions or concerns about the content, text or information contained within the body of this dictation should be directly addressed to the provider for clarification. Coding Level of Care Code None
[2021-11-12 16:24] LABS: BUN Creatinine Ratio 38.8 (10-20); Calcium 9.2 mg/dl (8.5-10.1); Creatinine Clr Calc Pharmacy 23.1 ml/min; Est GFR (African American) 36.4 ml/min; Est GFR (Non-African American) 31.4 ml/min; Potassium 3.8 mmol/L (3.5-5.1)
--- NOTE | 2021-11-12 17:55 | Hospitalist Progress Note ---
Date of Service November 12, 2021 Assessment & Plan (1) Acute metabolic encephalopathy: Plan: Per Dr. Singh's notes with addendum including below. Initially resolved after sepsis resuscitation, however, she has become obtunded overnight. Multiple factors likely contributing with worsening hypoxia, hypernatremia, and ongoing infections-not an exhaustive list of contributing factors. 11/12/2019 Seems to be improving Monitor closely (2) Hypoxia: Plan: 2/2 pneumonia. Currently on vanc and cefepime. Notably aspiration was considered, however, speech reported no issues wtih aspiration on her ex amination and she initially improved on abx. Therefore, flagyl was not added. Now further hypoxia is possibly 2/2 fluid overload after resuscitation efforts and she has already received some Lasix overnight BP is low and she is hypernatremia. On dextrose at a low rate. Echo ordered for this am. Transferred to ICU and phenylephrine started. Cont further management per machine operator general. 11/12/2021 Transition from CPAP to 3 L of oxygen via nasal cannula Continue Unasyn plus ceftriaxone for pneumonia Fabrication Lead on board (3) Atrial fibrillation with rapid ventricular response: Plan: New onset atrial fibrillation with RVR overnight in setting of pulmonary illness and possible fluid overload after resuscitation from sepsis. Rate in in the low 100s. PE considered as she has not been on anticoagulation this admission 2/2 thrombocytopenia and has an elevated risk of DVT. However, she is too unstable to go to the CT scanner at this point. Cont rate control with metoprolol IV as needed. Echo pending and cardiology was consulted. 11/12/2021 Normal sinus rhythm Cardiology service on board (4) Pneumonia: Plan: Covid, flu A/B, RSV PCR negative, hypoxia as above. CT chest with right lower lobe consolidative opacities concerning for pneumonia and/or aspiration. Initially was started on vanc and Zosyn. Out of concerns for EARL, changed Zosyn to cefepime. Oxygen supplementation, wean as tolerated. Speech evaluation revealed no concerns for aspiration. Sputum culture reveals strep pneumo and MSSA. Remains on vanc and Cefepime. Antibiotic changes per ICU team at this point. 11/12/2021 Continue Unasyn plus ceftriaxone Monitor closely (5) UTI (urinary tract infection): Plan: Vanc sensitive enterococcus. Cont abx with de-escalation per ICU team as able. 11/12/2021 management of antibiotics per above (6) Sepsis: Plan: Resuscitated. Cont antibiotics. (7) Abdominal pain: Plan: Initially was resolved, however, appeared to withdraw from pain during exam this morning. She is altered and on BIPAP, actively trying to remove her mask and wi th mitts on. She is not a reliable historian at this time. During this admission, in the setting of abdominal pain with cirrhosis, hyperbilirubinemia and cholelithiasis she was also seen by gastroenterology and surgery who felt no further workup or treatments were warranted. Her elevated total bilirubin and tender abdomen was thought to be possibly secondary to infection or sepsis versus decompensated cirrhosis. As this has improved with treatment of her infection and it was more likely the former. Defer further workup to ICU team as needed. CT also found that endometrium is abnormally thickened for age which will be not emergently evaluated with a pelvic ultrasound and REPAIR WEAVER evaluation as outpatient. 11/12/2021 Denies abdominal pain (8) Fall: Plan: Patient remembers falling out of her bed -likely related to weakness in setting of metabolic encephalopathy which is now clearing. Min CK elevation expected. Likely improved after IVF resuscitation. CT head, cervical spine CT, chest CT, pelvic XR without evidence of acute trauma or fracture. Cont with Fall precautions, PT OT evaluation 11/12/2021 PT and OT evaluation (9) Acute kidney injury superimposed on chronic kidney disease: Plan: Cr elevated at 1.36 (baseline ~ 0.9) in setting of dehydration and sepsis. Remains 1.5 today. Lasix given overnight. Would repeat BMP q12h but defer to ICU team 11/12/2021 Creatinine remains at 1.7 On a bicarb drip Nephrology service on board (10) PAD (peripheral artery disease): Plan: chronic, stable. S/p stent L subclavian, superior mesenteric artery, L iliac and fempop bypass Follows with Dr. Andrade of vascular surgery in [place] Continue aspirin, plavix, statin (11) Cirrhosis: Plan: Diagnosed in January 2021, [place], She is at risk for hypervolemia so we will be cautious with IV fluids. Possibly more hypervolemic now. Ammonia level was checked yesterday and was <10, so somnolence was not thought t o be related to hepatic encephalopathy, however, this could be reassessed with declined mental status today. 11/12/21 seems to be compensated overall (12) DM II (diabetes mellitus, type II), controlled: Plan: A1c 9.4 reflecting poor overall control. Cont basal/bolus insulin while in- patient. BSG AC HS, holding Lantus at this time as she is too weak and altered to eat anything. Cont with ICU regimen for glucose control on transition to ICU care. Continue Lantus and insulin sliding scale (13) COPD (chronic obstructive pulmonary disease): Plan: chronic, stable-no wheezing. Does not require O2 at baseline. Former smoker. Continue Anoro Ellipda, Albuterol inh PRN (14) Hypothyroidism: Plan: Continue levothyroxine per home regimen. (15) Thickened endometrium: Plan: Esophageal varices with a small volume of abdominal pelvic ascites and splenomegaly indicating portal hypertension is present. There is also wall thic kening of the right colon with mild pericolic infiltration which could present a nonspecific colitis. She continues on antibiotics and would appreciate gastroenterology thoughts on this. Endometrium is abnormally thickened for age which will be not emergently evaluated with a pelvic ultrasound and REPAIR WEAVER evaluation as outpatient. 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 Follow-up as outpatient for monitoring. (17) DVT prophylaxis: Plan: DVT Ppx: SCDs for now given thrombocytopenia Code status: FULL Dispo-pending, may need to transition to acute rehab versus prison facility upon discharge when medically stable Admission and Anticipated Discharge Date Admission Date: November 08, 2021 Subjective ff up for encephalopathy, pneumonia, etc seen with patient's daughter Melany at the bedside Patient on 3 L of oxygen via nasal cannula, comfortable Appears somewhat drowsy but opens eyes to command, able to state daughter's name Denies shortness of breath, chest pain or any other symptoms States she feels cold Other issues per bunch maker of Systems Review of Systems: All systems reviewed & are unremarkable except as noted in Subjective Physical Exam Physical Exam: General- oriented x 1, not in distress, speaks in few words with no effort or accessory muscle use Eyes- anicteric Neck- no JVD Lungs-decreased breath sounds on the right, clear on the left Heart- normal rate, regular rhythm; no murmurs Abdomen- normal bowel sounds, nondistended, soft, nontender Extremities- no pretibial edema, no calf tenderness Neuro-drowsy, somewhat confused, moves all extremities equally No focal neurologic deficits noted Skin- warm & dry Results & Data Results & Data ([facility]) Vital Signs (Past 12 Hours) Vital Signs Temp Pulse Resp BP Pulse Ox 11/12/21 16:02 58 L 17 154/66 H 92 11/12/21 16:00 52 L 18 92 11/12/21 15:31 59 L 20 112/53 L 92 11/12/21 15:00 51 L 18 108/46 L 91 11/12/21 14:30 54 L 21 152/53 H 92 11/12/21 14:00 59 L 21 159/58 H 90 11/12/21 13:31 63 21 166/84 H 91 11/12/21 13:00 55 L 17 161/46 H 90 11/12/21 12:31 59 L 22 171/77 H 91 11/12/21 12:02 57 L 19 131/51 L 91 11/12/21 12:00 60 19 92 11/12/21 11:30 55 L 18 132/41 L 92 11/12/21 11:12 62 18 145/44 H 92 11/12/21 11:00 57 L 21 93 11/12/21 10:30 57 L 24 133/40 L 91 11/12/21 10:00 58 L 16 133/48 L 91 11/12/21 09:30 61 21 157/69 H 94 11/12/21 09:01 60 21 153/51 H 93 11/12/21 09:00 62 18 93 11/12/21 08:30 65 29 H 159/82 H 90 11/12/21 08:00 57 L 20 148/49 H 93 11/12/21 07:30 57 L 10 L 137/46 L 94 11/12/21 07:00 57 L 19 151/53 H 95 11/12/21 06:30 59 L 20 136/43 L 94 11/12/21 06:19 37.0 C 11/12/21 06:01 58 L 15 144/48 H 95 all noted and reviewed including below (1) Pneumonia Laterality: right Lung location: unspecified part of lung Pneumonia type: due to unspecified organism Qualified Code(s): J18.9 - Pneumonia, unspecified organism
[2021-11-12] MEDS: FAMOTIDINE 40 MG TABLET PO SCH (20:29)
[2021-11-12] MEDS ORDERED: INSULIN ASPART PER UNIT SC SCH (22:00)
[2021-11-13] MEDS: INSULIN ASPART PER UNIT SC SCH ×5 (04:01→21:20)
[2021-11-13 06:20] LABS: BUN Creatinine Ratio 36.1 (10-20); Calcium 9.9 mg/dl (8.5-10.1); Creatinine Clr Calc Pharmacy 25.3 ml/min; Est GFR (African American) 40.7 ml/min; Est GFR (Non-African American) 35.1 ml/min; Magnesium 2.5 mg/dl (1.8-2.4); Potassium 4.2 mmol/L (3.5-5.1)
[2021-11-13 06:42] LABS: Phosphorus 1.9 mg/dl (2.5-4.9)
[2021-11-13 07:10] LABS: Anisocytosis Present; Basophils # (auto) 0.04 K/uL (0-0.2); Basophils % (auto) 0.5 %; Echinocytes 2+; Eosinophils # (auto) 0.14 K/uL (0-0.5); Eosinophils % (auto) 1.6 %; Hemoglobin 11.6 g/dL (12.0-16.0); Immature Granulocytes # (auto) 0.03 K/uL (0.00-0.02); Immature Granulocytes % (auto) 0.4 %; Lymphocytes # (auto) 0.83 K/uL (1.2-3.4); Lymphocytes % (auto) 9.7 %; Mean Corpuscular Hemoglobin 27.1 pg (25-34); Mean Corpuscular Hgb Conc 32.2 g/dL (32-36); Mean Corpuscular Volume 84.1 fL (80-100); Monocytes # (auto) 0.51 K/uL (0.11-0.59); Neutrophils % (auto) 81.8 %; Platelet Count 123 K/uL (130-400); RDW Coefficient of Variation 22.9 % (11.5-14.5); Red Blood Count 4.28 M/uL (4.2-5.4); White Blood Count 8.55 K/uL (4.8-10.8)
--- NOTE | 2021-11-13 08:17 | Nephrology Progress Note ---
Date of Service November 13, 2021 Assessment & Plan (1) Hypertension: Plan: markedly worse past 24 hr; but relates I believe to missing meds, pain, agitation >> improved by afternoon/evening -if needed could try low doses enaliprilat if resuming home meds not enough to bring SBP to 150s approx (2) Acute kidney injury superimposed on chronic kidney disease: Plan: slightly improved nonoliguric stage 1 erin on early CKD 3 w/ creatinine hovering since admission mid ones and baseline about one. -supportive care including as below (3) Metabolic acidosis: Plan: resolving/resolved. from combined etiologies of lactic acidosis and NAGMA from saline; chemistries further -treat pneumonia -if further hydration indicated avoid chloride rich fluids (4) Disorder of fluid or electrolyte: Plan: hypernatremia is from relative dehydration in setting of sepsis; >changed IVF orders this am to 1/2 NS w/ 20 mEq/L K at 80 mL/hr Will sign off; pls call if ? Admission and Anticipated Discharge Date Admission Date: November 08, 2021 Subjective signfiicant HTN ON and this am, improving w/ given routine bp meds; also pain w/ SCDs resolved w/ removing them; minimally interactive but agitated Review of Systems Review of Systems: Unobtainable due to reduced consciousness Physical Exam Constitutional: well developed and well nourished; no acute distress Eyes: EOM intact bilaterally ENMT: Ears: no external ear abnormality Nose: no external nose abnormality Mouth: + dry oral mucous membranes Neck: no nuchal rigidity Respiratory: normal respiratory effort Auscultation: + diminished lung sounds Cardiovascular: RRR, no murmur, no edema Gastrointestinal (Abdomen): Inspection/Auscultation: normal bowel sounds Percussion/Palpation: abdomen soft; abdomen nontender Musculoskeletal: Extremities: strength 5/5 throughout Skin: no rashes, warm and dry Neurologic: moaning, disoriented; shay; does not interact/follow commands Genitourinary: isaacs w/ ample urine Results & Data ([facility]) Vital Signs (Past 12 Hours) Vital Signs Pulse Resp BP Pulse Ox 11/13/21 07:58 69 11/13/21 05:00 74 28 H 85 L 11/13/21 04:32 70 27 H 200/161 H 89 L 11/13/21 04:00 67 24 96 11/13/21 03:01 70 21 187/99 H 94 11/13/21 03:00 69 17 93 11/13/21 02:30 73 27 H 198/104 H 85 L 11/13/21 02:00 64 25 H 176/64 H 95 11/13/21 01:31 67 23 179/56 H 95 11/13/21 01:01 64 23 179/53 H 95 11/13/21 01:00 68 15 96 11/13/21 00:31 62 21 95 11/13/21 00:01 63 24 159/61 H 95 11/13/21 00:00 64 18 95 11/12/21 23:30 67 23 195/66 H 88 L 11/12/21 23:00 67 18 95 11/12/21 22:00 66 22 171/84 H 94 11/12/21 21:34 70 27 H 190/84 H 92 11/12/21 21:31 68 23 201/62 H 92 11/12/21 21:00 64 14 93 11/12/21 20:31 59 L 19 140/80 91 Laboratory Results 11/13/21 05:37 11/13/21 05:37
[2021-11-13] MEDS: ASPIRIN 81 MG ECTAB PO SCH (08:22)
[2021-11-13] MEDS: ATORVASTATIN 20 MG TAB PO SCH (08:22)
[2021-11-13] MEDS: carvediloL 6.25 MG TAB PO SCH ×2 (08:22→21:16)
[2021-11-13] MEDS: HEPARIN SOD 5,000 UNIT/0.5 ML VIAL SQ SCH ×2 (08:22→21:17)
[2021-11-13] MEDS: CLOPIDOGREL BISULFATE 75 MG TAB PO SCH (08:22)
[2021-11-13] MEDS: UMECLIDINIUM/VILANTEROL 62.5/25MCG 7 PUFFS/INHALER INH SCH (08:23)
[2021-11-13] MEDS: INSULIN GLARGINE SOLOSTAR 100 UNITS/ML 3 ML PEN SC SCH ×2 (08:25→21:17)
[2021-11-13] MEDS ORDERED: METOPROLOL TARTRATE 1 MG/ML VIAL IV PRN (08:32)
[2021-11-13] MEDS: POTASSIUM ACETATE 20 MEQ in SODIUM CHLORIDE 0.45 % 1,000 ML IV SCH ×2 (08:50→22:23)
[2021-11-13] MEDS: AMPICILLIN/SULBACTAM SOD 3,000 MG in 0.9 % SODIUM CHLORIDE 100 ML IV SCH ×2 (11:40→22:24)
[2021-11-13] MEDS: amLODIPine BESYLATE 5 MG TAB PO SCH (12:04)
[2021-11-13] MEDS: cefTRIAXone SODIUM 1,000 MG in DEXTROSE 5% 50 ML IV SCH (12:11)
--- NOTE | 2021-11-13 12:20 | XRay Report ---
XR chest 1V portable CLINICAL HISTORY: Pleural effusion TECHNIQUE: Single frontal radiograph of the chest was obtained. Comparison: Comparison is made to chest one view 11/12/2021 FINDINGS: Redemonstration of left subclavian stent. The cardiomediastinal silhouette is normal. Right lung base aeration is improved from prior exam. A small left pleural effusion is again seen. IMPRESSION: 1. Interval improvement in aeration of the right lung. Residual atelectasis is noted. 2. Left sided small effusion and underlying atelectasis are unchanged. ACT 112: Negative or not required by law. Electronically signed by: Ayden Patterson M.D. 11/13/2021 12:19 PM
--- NOTE | 2021-11-13 13:37 | Critical Care Progress Note ---
Date of Service November 13, 2021 Assessment & Plan (1) UTI (urinary tract infection): (2) Atrial fibrillation with rapid ventricular response: (3) Acute metabolic encephalopathy: (4) COPD (chronic obstructive pulmonary disease): Plan: --Acute hypoxic respiratory failure Secondary to multilobar pneumonia with right-sided pleural effusion Sputum culture growing strep as well as MSSA On Unasyn Was on vancomycin --> changed to Rocephin for strep coverage on 11/12/2021 COVID-19 PCR negative Influenza A/B negative RSV negative Procalcitonin: 39 --> 13 C. difficile antigen positive, toxin negative Continue with antibiotics --Metabolic encephalopathy Multifactorial likely from underlying sepsis Ammonia level negative Head CT at a time of presentation 11/08/2021 was negative for any active issues Aspiration precautions -- EARL on CKD Likely from sepsis Monitor BUN/creatinine Avoid nephrotoxic medications Strict ins and outs --A. fib with RVR Patient spontaneously converted to sinus rhythm after a sinus pause Continue with beta-blockers for rate control --Hypothyroidism Change levothyroxine to IV --Liver cirrhosis CT of the abdomen pelvis shows liver with cirrhotic morphology Splenomegaly as well as esophageal varices are appreciated on the CAT scan Patient's labs also go to her cirrhosis --COPD Continue with Anoro --Thrombocytopenia Likely from underlying cirrhosis Continue to monitor --Hypernatremia with hyperchloremia Not a good prognostic sign in the patient with cirrhotic-like features Continue with D5 water --DNR/DNI --Prophylaxis VTE: Heparin GI: Pepcid Lines: Peripheral Diet: N.p.o. Plan: In/out: +1103, urine output 1056 Chest x-ray from today still shows right-sided opacity with small bilateral pleural effusion Hypophosphatemia being replaced Hypernatremia is gradually improving. Continue with D5 water. We'll try to give p.o. free water as well. Patient blood pressure is on the higher side. She is able to take p.o. medicatio ns. If she is not able to then we'll give her IV metoprolol and hydralazine on as-needed basis. Continue with antibiotics I have personally spent 36 minutes of critical care time in the direct management of this patient. This is a life/limb threatening event. This includes time spent evaluating patient, direct bedside care, chart review, placing orders, interpretation of diagnostic studies, discussion with consultants, patient, and family members, as well as other required patient management activities. This time is exclusive of all separately billable procedures, and teaching time and separate from and in addition to any other critical care service time. Please note the above document was generated using voice recognition software. It may contain grammatical, syntax or spelling errors. Admission and Anticipated Discharge Date Admission Date: November 08, 2021 Subjective Patient seen and examined at bedside. No acute distress, no adverse events overnight. Patient is again oriented to only self. She does not follow any significant commands. She was saturating 92-93% on 4 L nasal cannula. Her blood pressure has been on the higher side. Not in any respiratory distress Review of Systems Review of Systems: Unobtainable due to cognitive status Physical Exam Physical Exam: Constitutional: No acute distress HEENT: EOMI, PERRLA Respiratory system: Decreased air entry bilaterally, no wheeze, rhonchi, positive crackles bilateral lower lobes more on the right side CVS: S1-S2 positive, no murmurs or gallops Abdomen: Soft, nontender, nondistended, positive bowel sounds x4, obese Extremities: +2 pulses bilaterally radialis/ dorsalis pedis, no cyanosis, +1 pitting edema Neuro: Opens her eyes to voice, oriented to self Psych: Unable to assess G/U: Positive Garza Skin: no rashes, warm and dry Lymphatic: no cervical or axillary lymphadenopathy Results & Data Results & Data ([facility]) Vital Signs (Past 12 Hours) Vital Signs Temp Pulse Pulse Resp BP BP Pulse Ox 11/13/21 12:08 37.0 C 67 28 H 161/59 H 91 11/13/21 12:07 66 32 H 161/59 H 91 11/13/21 12:00 69 26 H 90 11/13/21 11:01 70 31 H 134/71 92 11/13/21 11:00 71 31 H 92 11/13/21 10:11 73 21 178/75 H 92 11/13/21 10:01 73 27 H 92 11/13/21 10:00 76 73 24 178/85 H 92 11/13/21 09:43 91 11/13/21 09:00 77 24 93 11/13/21 08:00 70 28 H 94 11/13/21 07:58 69 11/13/21 07:26 66 23 193/79 H 95 11/13/21 07:24 71 30 H 198/80 H 96 11/13/21 07:00 70 22 95 11/13/21 06:31 67 28 H 111/87 94 11/13/21 06:00 66 21 96 11/13/21 05:31 71 31 H 197/64 H 94 11/13/21 05:00 74 28 H 85 L 11/13/21 04:32 70 27 H 200/161 H 89 L 11/13/21 04:00 67 24 96 11/13/21 03:01 70 21 187/99 H 94 11/13/21 03:00 69 17 93 11/13/21 02:30 73 27 H 198/104 H 85 L 11/13/21 02:00 64 25 H 176/64 H 95 Laboratory Results 11/13/21 05:37 11/13/21 05:37 Coding Level of Care Code Critical Care 1st 30-74 mins Diagnoses UTI (urinary tract infection) N39.0 Atrial fibrillation with rapid ventricular response I48.91 Acute metabolic encephalopathy G93.41 COPD (chronic obstructive pulmonary disease) J44.9 Time Spent (min) 36
--- NOTE | 2021-11-13 13:56 | Hospitalist Progress Note ---
Date of Service November 13, 2021 delayed entry date of service noted above Assessment & Plan (1) Acute metabolic encephalopathy: Plan: Per Dr. Singh's notes with addendum including below. Initially resolved after sepsis resuscitation, however, she has become obtunded overnight. Multiple factors likely contributing with worsening hypoxia, hypernatremia, and ongoing infections-not an exhaustive list of contributing factors. 11/13/2019 somewhat drowsy, confused again today per patient's daughter, patient takes Gabapentin at HS confirmed with outpatient filled medications Gabapentin 300mg HS ordered Monitor closely (2) Hypoxia: Plan: 2/2 pneumonia. Currently on vanc and cefepime. Notably aspiration was considered, however, speech reported no issues wtih aspiration on her examination and she initially improved on abx. Therefore, flagyl was not added. Now further hypoxia is possibly 2/2 fluid overload after resuscitation efforts and she has already received some Lasix overnight BP is low and she is hypernatremia. On dextrose at a low rate. Echo ordered for this am. Transferred to ICU and phenylephrine started. Cont further management per supervisor wet pour. 11/13/2021 Transition from CPAP to 3-4 L of oxygen via nasal cannula Continue Unasyn plus ceftriaxone for pneumonia (3) Atrial fibrillation with rapid ventricular response: Plan: New onset atrial fibrillation with RVR overnight in setting of pulmonary illness and possible fluid overload after resuscitation from sepsis. Rate in in the low 100s. PE considered as she has not been on anticoagulation this admission 2/2 thrombocytopenia and has an elevated risk of DVT. However, she is too unstable to go to the CT scanner at this point. Cont rate control with metoprolol IV as needed. Echo pending and cardiology was consulted. 11/13/2021 Normal sinus rhythm Cardiology service on board (4) Pneumonia: Plan: Covid, flu A/B, RSV PCR negative, hypoxia as above. CT chest with right lower lobe consolidative opacities concerning for pneumonia and/or aspiration. Initially was started on vanc and Zosyn. Out of concerns for EARL, changed Zosyn to cefepime. Oxygen supplementation, wean as tolerated. Speech evaluation revealed no concerns for aspiration. Sputum culture reveals strep pneumo and MSSA. Remains on vanc and Cefepime. Antibiotic changes per ICU team at this point. 11/13/2021 Continue Unasyn plus ceftriaxone Monitor closely (5) UTI (urinary tract infection): Plan: Vanc sensitive enterococcus. Cont abx with de-escalation per ICU team as able. 11/13/2021 management of antibiotics per above (6) Sepsis: Plan: Resuscitated. Cont antibiotics. (7) Abdominal pain: Plan: Initially was resolved, however, appeared to withdraw from pain during exam this morning. She is altered and on BIPAP, actively trying to remove her mask and with mitts on. She is not a reliable historian at this time. During this admission, in the setting of abdominal pain with cirrhosis, hyperbilirubinemia and cholelithiasis she was also seen by gastroenterology and surgery who felt no further workup or treatments were warranted. Her elevated total bilirubin and tender abdomen was thought to be possibly secondary to infection or sepsis versus decompensated cirrhosis. As this has improved with treatment of her infection and it was more likely the former. Defer further workup to ICU team as needed. CT also found that endometrium is abnormally thickened for age which will be not emergently evaluated with a pelvic ultrasound and EXECUTIVE ADMINISTRATOR evaluation as outpatient. 11/13/2021 no signs of abdominal pain (8) Fall: Plan: Patient remembers falling out of her bed -likely related to weakness in setting of metabolic encephalopathy which is now clearing. Min CK elevation expected. Likely improved after IVF resuscitation. CT head, cervical spine CT, chest CT, pelvic XR without evidence of acute trauma or fracture. Cont with Fall precautions, PT OT evaluation PT and OT evaluation (9) Acute kidney injury superimposed on chronic kidney disease: Plan: Cr elevated at 1.36 (baseline ~ 0.9) in setting of dehydration and sepsis. Remains 1.5 today. Lasix given overnight. Would repeat BMP q12h but defer to ICU team Creatinine remains at 1.3 s/p bicarb drip Nephrology service consulted (10) PAD (peripheral artery disease): Plan: chronic, stable. S/p stent L subclavian, superior mesenteric artery, L iliac and fempop bypass Follows with Dr. Andrade of vascular surgery in [place] Continue aspirin, plavix, statin (11) Cirrhosis: Plan: Diagnosed in January 2021, [place], She is at risk for hypervolemia so we will be cautious with IV fluids. Possibly more hypervolemic now. Ammonia level was checked yesterday and was <10, so somnolence was not thought to be related to hepatic encephalopathy, however, this could be reassessed with declined mental status today. 1/8/22 seems to be compensated overall (12) DM II (diabetes mellitus, type II), controlled: Plan: A1c 9.4 reflecting poor overall control. Cont basal/bolus insulin while in- patient. BSG AC HS, holding Lantus at this time as she is too weak and altered to eat anything. Cont with ICU regimen for glucose control on transition to ICU care. Continue Lantus and insulin sliding scale (13) COPD (chronic obstructive pulmonary disease): Plan: chronic, stable-no wheezing. Does not require O2 at baseline. Former smoker. Continue Anoro Ellipda, Albuterol inh PRN (14) Hypothyroidism: Plan: Continue levothyroxine per home regimen. (15) Thickened endometrium: Plan: Esophageal varices with a small volume of abdominal pelvic ascites and splenomegaly indicating portal hypertension is present. There is also wall thickening of the right colon with mild pericolic infiltration which could present a nonspecific colitis. She continues on antibiotics and would appreciate gastroenterology thoughts on this. Endometrium is abnormally thickened for age which will be not emergently evaluated with a pelvic ultrasound and EXECUTIVE ADMINISTRATOR evaluation as outpatient. 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 Follow-up as outpatient for monitoring. (17) DVT prophylaxis: Plan: DVT Ppx: SCDs for now given thrombocytopenia Code status: FULL Dispo-pending, may need to transition to acute rehab versus long-term facility upon discharge when medically stable Admission and Anticipated Discharge Date Admission Date: November 08, 2021 Subjective ff up for encephalopathy, sepsis, pneumonia, uti, etc seen resting in bed, comfortable patient mostly sleeping, moans occasionally confused no signs of pain, distress no other issues per chemical lab technician of Systems Review of Systems: all noted and negative except for above Physical Exam Physical Exam: General-not oriented, breathing with no effort or accessory muscle use Eyes- anicteric Neck- no JVD Lungs- mild crackles on the right side, clear on the left Heart- normal rate, regular rhythm; no murmurs Abdomen- normal bowel sounds, nondistended, soft, nontender Extremities- no pretibial edema, no calf tenderness Neuro- oriented x 0; no gross focal neurologic deficits Skin- warm & dry Results & Data Results & Data ([facility]) Vital Signs (Past 12 Hours) Vital Signs Temp Pulse Pulse Resp BP BP Pulse Ox 11/13/21 12:08 37.0 C 67 28 H 161/59 H 91 11/13/21 12:07 66 32 H 161/59 H 91 11/13/21 12:00 69 26 H 90 11/13/21 11:01 70 31 H 134/71 92 11/13/21 11:00 71 31 H 92 11/13/21 10:11 73 21 178/75 H 92 11/13/21 10:01 73 27 H 92 11/13/21 10:00 76 73 24 178/85 H 92 11/13/21 09:43 91 11/13/21 09:00 77 24 93 11/13/21 08:00 70 28 H 94 11/13/21 07:58 69 11/13/21 07:26 66 23 193/79 H 95 11/13/21 07:24 71 30 H 198/80 H 96 11/13/21 07:00 70 22 95 11/13/21 06:31 67 28 H 111/87 94 11/13/21 06:00 66 21 96 11/13/21 05:31 71 31 H 197/64 H 94 11/13/21 05:00 74 28 H 85 L 11/13/21 04:32 70 27 H 200/161 H 89 L 11/13/21 04:00 67 24 96 11/13/21 03:01 70 21 187/99 H 94 11/13/21 03:00 69 17 93 11/13/21 02:30 73 27 H 198/104 H 85 L 11/13/21 02:00 64 25 H 176/64 H 95 all noted and reviewed including below (1) Pneumonia Laterality: right Lung location: unspecified part of lung Pneumonia type: due to unspecified organism Qualified Code(s): J18.9 - Pneumonia, unspecified organism
[2021-11-13] MEDS: ACETAMINOPHEN 325 MG TAB PO PRN (14:29)
[2021-11-13] MEDS: GABAPENTIN 300 MG CAP PO SCH (21:16)
[2021-11-13] MEDS: FAMOTIDINE 40 MG TABLET PO SCH (21:16)
[2021-11-14] MEDS: INSULIN ASPART PER UNIT SC SCH ×6 (00:07→21:22)
[2021-11-14 07:05] LABS: Hematocrit (blood only) 38.4 % (37-47); Hemoglobin 12.1 g/dL (12.0-16.0); Mean Corpuscular Hemoglobin 26.9 pg (25-34); Mean Corpuscular Hgb Conc 31.5 g/dL (32-36); Mean Corpuscular Volume 85.3 fL (80-100); Platelet Count 181 K/uL (130-400); RDW Standard Deviation 71.1 fL (36.4-46.3); White Blood Count 11.47 K/uL (4.8-10.8)
[2021-11-14 07:22] LABS: Anisocytosis Present; Basophils # (auto) 0.04 K/uL (0-0.2); Basophils % (auto) 0.3 %; Echinocytes 1+; Eosinophils # (auto) 0.37 K/uL (0-0.5); Eosinophils % (auto) 3.2 %; Immature Granulocytes # (auto) 0.07 K/uL (0.00-0.02); Immature Granulocytes % (auto) 0.6 %; Lymphocytes # (auto) 1.59 K/uL (1.2-3.4); Lymphocytes % (auto) 13.9 %; Monocytes # (auto) 0.64 K/uL (0.11-0.59); Monocytes % (auto) 5.6 %; Neutrophils # (auto) 8.76 K/uL (1.4-6.5); Neutrophils % (auto) 76.4 %; Polychromasia 1+
[2021-11-14 07:38] LABS: BUN Creatinine Ratio 41.1 (10-20); Calcium 9.7 mg/dl (8.5-10.1); Creatinine Clr Calc Pharmacy 32.1 ml/min; Est GFR (African American) 54.2 ml/min; Est GFR (Non-African American) 46.8 ml/min; Magnesium 2.4 mg/dl (1.8-2.4); Phosphorus 2.3 mg/dl (2.5-4.9); Potassium 4.5 mmol/L (3.5-5.1)
--- NOTE | 2021-11-14 07:56 | XRay Report ---
XR chest 1V portable CLINICAL HISTORY: Pleural effusion TECHNIQUE: Single frontal radiograph of the chest was obtained. Comparison: Comparison is made to chest one view 11/13/2021 FINDINGS: No lines and tubes are seen. The cardiomediastinal silhouette is stable. Lungs are underinflated. The definite airspace opacities are seen. There is a small left pleural effusion. There is possibly a tr petra right pleural effusion as well. IMPRESSION: Stable small left pleural effusion. Possible trace right pleural effusion. ACT 112: Negative or not required by law. Electronically signed by: Ayden Patterson M.D. 11/14/2021 7:54 AM
[2021-11-14] MEDS: amLODIPine BESYLATE 5 MG TAB PO SCH (08:29)
[2021-11-14] MEDS: carvediloL 6.25 MG TAB PO SCH ×2 (08:29→21:23)
[2021-11-14] MEDS: CLOPIDOGREL BISULFATE 75 MG TAB PO SCH (08:30)
[2021-11-14] MEDS: UMECLIDINIUM/VILANTEROL 62.5/25MCG 7 PUFFS/INHALER INH SCH (08:30)
[2021-11-14] MEDS: ATORVASTATIN 20 MG TAB PO SCH (08:30)
[2021-11-14] MEDS: ASPIRIN 81 MG ECTAB PO SCH (08:30)
[2021-11-14] MEDS: INSULIN GLARGINE SOLOSTAR 100 UNITS/ML 3 ML PEN SC SCH ×2 (08:31→21:19)
[2021-11-14] MEDS: HEPARIN SOD 5,000 UNIT/0.5 ML VIAL SQ SCH ×2 (08:31→21:21)
[2021-11-14] MEDS ORDERED: POTASSIUM PHOS 3 MMOL/1 ML INFUSION IV STA (08:33)
[2021-11-14] MEDS: ACETAMINOPHEN 325 MG TAB PO PRN ×2 (08:53→14:05)
[2021-11-14] MEDS: SODIUM CHLORIDE 0.45 % 1,000 ML IV SCH ×3 (08:53→21:26)
[2021-11-14] MEDS ORDERED: POTASSIUM PHOSPHATE 21 MMOL in SODIUM CHLORIDE 0.9% 500 ML IV ONE (09:15)
--- NOTE | 2021-11-14 09:46 | Critical Care Progress Note ---
Date of Service November 14, 2021 Assessment & Plan (1) UTI (urinary tract infection): (2) Atrial fibrillation with rapid ventricular response: (3) Acute metabolic encephalopathy: (4) COPD (chronic obstructive pulmonary disease): Plan: --Acute hypoxic respiratory failure Secondary to multilobar pneumonia with right-sided pleural effusion Sputum culture growing strep as well as MSSA On Unasyn Was on vancomycin --> changed to Rocephin for strep coverage on 11/12/2021 COVID-19 PCR negative Influenza A/B negative RSV negative Procalcitonin: 39 --> 13 C. difficile antigen positive, toxin negative Continue with antibiotics --Metabolic encephalopathy Multifactorial likely from underlying sepsis Ammonia level negative Head CT at a time of presentation 11/08/2021 was negative for any active issues Aspiration precautions -- EARL on CKD Likely from sepsis Monitor BUN/creatinine Avoid nephrotoxic medications Strict ins and outs --A. fib with RVR Patient spontaneously converted to sinus rhythm after a sinus pause Continue with beta-blockers for rate control --Hypothyroidism Change levothyroxine to IV --Liver cirrhosis CT of the abdomen pelvis shows liver with cirrhotic morphology Splenomegaly as well as esophageal varices are appreciated on the CAT scan Patient's labs also go to her cirrhosis --COPD Continue with Anoro --Thrombocytopenia Likely from underlying cirrhosis Continue to monitor --Hypernatremia with hyperchloremia Not a good prognostic sign in the patient with cirrhotic-like features Continue with D5 water --DNR/DNI --Prophylaxis VTE: Heparin GI: Pepcid Lines: Peripheral Diet: Cardiorenal Plan: In/out: + +1.9 L, urine output 745 No significant change in chest x-ray today. It is a poor inspiratory film. Bilateral small pleural effusion. Hypophosphatemia being replaced. IV fluids has been changed to half NS with 10 of potassium acetate K-Phos also given for the hypophosphatemia Patient is hemodynamically stable to be downgraded to medical floor Case discussed with Please note the above document was generated using voice recognition software. It may contain grammatical, syntax or spelling errors. Admission and Anticipated Discharge Date Admission Date: November 08, 2021 Subjective Patient seen and examined at bedside. No acute distress. Patient is more alert today. She still has her bouts of restlessness. Denies any headache, no chest pain Stated she has pneumonia. Has been afebrile. Tolerating p.o. medications Review of Systems Review of Systems: All systems reviewed & are unremarkable except as noted in Subjective Physical Exam Physical Exam: Constitutional: No acute distress HEENT: EOMI, PERRLA Respiratory system: Decreased air entry bilaterally, no wheeze, rhonchi, positive crackles bilateral lower lobes more on the right side CVS: S1-S2 positive, no murmurs or gallops Abdomen: Soft, nontender, nondistended, positive bowel sounds x4, obese Extremities: +2 pulses bilaterally radialis/ dorsalis pedis, no cyanosis, +1 pitting edema Neuro: Opens her eyes to voice, oriented to self Psych: Unable to assess G/U: Positive Garza Skin: no rashes, warm and dry Lymphatic: no cervical or axillary lymphadenopathy Results & Data Results & Data ([facility]) Vital Signs (Past 12 Hours) Vital Signs Pulse Resp BP Pulse Ox 11/14/21 08:00 72 11/14/21 06:00 68 22 90 11/14/21 05:00 70 33 H 82 L 11/14/21 04:01 65 22 208/101 H 92 11/14/21 04:00 64 25 H 92 11/14/21 03:02 64 20 166/55 H 92 11/14/21 03:00 63 21 92 11/14/21 02:01 59 L 20 87/42 L 90 11/14/21 02:00 60 19 91 11/14/21 01:00 69 26 H 90 11/14/21 00:01 72 26 H 216/93 H 81 L 11/14/21 00:00 72 30 H 83 L 11/13/21 23:00 70 25 H 93 11/13/21 22:00 69 27 H 187/106 H 93 Laboratory Results 11/14/21 06:36 11/14/21 06:36 Coding Level of Care Code 70020 Subseq Hosp Care Lvl 3 Diagnoses UTI (urinary tract infection) N39.0 Atrial fibrillation with rapid ventricular response I48.91 Acute metabolic encephalopathy G93.41 COPD (chronic obstructive pulmonary disease) J44.9
[2021-11-14] MEDS: AMPICILLIN/SULBACTAM SOD 3,000 MG in 0.9 % SODIUM CHLORIDE 100 ML IV SCH ×2 (12:06→23:00)
[2021-11-14] MEDS: cefTRIAXone SODIUM 1,000 MG in DEXTROSE 5% 50 ML IV SCH (12:41)
--- NOTE | 2021-11-14 16:26 | Hospitalist Progress Note ---
Date of Service November 14, 2021 Assessment & Plan (1) Acute metabolic encephalopathy: Plan: Per Dr. Singh's notes with addendum including below. Initially resolved after sepsis resuscitation, however, she has become obtunded overnight. Multiple factors likely contributing with worsening hypoxia, hypernatremia, and ongoing infections-not an exhaustive list of contributing factors. 11/14/2019 more awake, answers more question appropriately per patient's daughter, patient takes Gabapentin at HS confirmed with outpatient filled medications Gabapentin 300mg HS ordered continue to monitor closely Monitor closely (2) Hypoxia: Plan: 2/2 pneumonia. Currently on vanc and cefepime. Notably aspiration was considered, however, speech reported no issues wtih aspiration on her examination and she initially improved on abx. Therefore, flagyl was not added. Now further hypoxia is possibly 2/2 fluid overload after resuscitation efforts and she has already received some Lasix overnight BP is low and she is hypernatremia. On dextrose at a low rate. Echo ordered for this am. Transferred to ICU and phenylephrine started. Cont further management per director underwriter sales. 11/14/2021 Transition from CPAP to 3-4 L of oxygen via nasal cannula Continue Unasyn plus ceftriaxone for pneumonia chest percussion therapy, nebs (3) Atrial fibrillation with rapid ventricular response: Plan: New onset atrial fibrillation with RVR overnight in setting of pulmonary illness and possible fluid overload after resuscitation from sepsis. Rate in in the low 100s. PE considered as she has not been on anticoagulation this admission 2/2 thrombocytopenia and has an elevated risk of DVT. However, she is too unstable to go to the CT scanner at this point. Cont rate control with metoprolol IV as needed. Echo pending and cardiology was consulted. 11/14/2021 Normal sinus rhythm Cardiology service on board (4) Pneumonia: Plan: Covid, flu A/B, RSV PCR negative, hypoxia as above. CT chest with right lower lobe consolidative opacities concerning for pneumonia and/or aspiration. Initially was started on vanc and Zosyn. Out of concerns for EARL, changed Zosyn to cefepime. Oxygen supplementation, wean as tolerated. Speech evaluation revealed no concerns for aspiration. Sputum culture reveals strep pneumo and MSSA. Remains on vanc and Cefepime. Antibiotic changes per ICU team at this point. 11/14/2021 Continue Unasyn plus ceftriaxone Monitor closely (5) UTI (urinary tract infection): Plan: Vanc sensitive enterococcus. Cont abx with de-escalation per ICU team as able. 11/14/2021 management of antibiotics per above (6) Sepsis: Plan: Resuscitated. Cont antibiotics. (7) Abdominal pain: Plan: Initially was resolved, however, appeared to withdraw from pain during exam this morning. She is altered and on BIPAP, actively trying to remove her mask and with mitts on. She is not a reliable historian at this time. During this admission, in the setting of abdominal pain with cirrhosis, hyperbilirubinemia and cholelithiasis she was also seen by gastroenterology and surgery who felt no further workup or treatments were warranted. Her elevated total bilirubin and tender abdomen was thought to be possibly secondary to infection or sepsis versus decompensated cirrhosis. As this has improved with treatment of her infection and it was more likely the former. Defer further workup to ICU team as needed. CT also found that endometrium is abnormally thickened for age which will be not emergently evaluated with a pelvic ultrasound and HOTBED TRANSFER OPERATOR evaluation as outpatient. 11/14/2021 no signs of abdominal pain (8) Fall: Plan: Patient remembers falling out of her bed -likely related to weakness in setting of metabolic encephalopathy which is now clearing. Min CK elevation expected. Likely improved after IVF resuscitation. CT head, cervical spine CT, chest CT, pelvic XR without evidence of acute trauma or fracture. Cont with Fall precautions, PT OT evaluation PT and OT evaluation (9) Acute kidney injury superimposed on chronic kidney disease: Plan: Cr elevated at 1.36 (baseline ~ 0.9) in setting of dehydration and sepsis. Remains 1.5 today. Lasix given overnight. Would repeat BMP q12h but defer to ICU team Creatinine improved, now 1.0 s/p bicarb drip Nephrology service consulted (10) PAD (peripheral artery disease): Plan: chronic, stable. S/p stent L subclavian, superior mesenteric artery, L iliac and fempop bypass Follows with Dr. Andrade of vascular surgery in [place] Continue aspirin, plavix, statin (11) Cirrhosis: Plan: Diagnosed in January 2021, [place], She is at risk for hypervolemia so we will be cautious with IV fluids. Possibly more hypervolemic now. Ammonia level was checked yesterday and was <10, so somnolence was not thought to be related to hepatic encephalopathy, however, this could be reassessed with declined mental status today. 11/14/21 seems to be compensated overall (12) DM II (diabetes mellitus, type II), controlled: Plan: A1c 9.4 reflecting poor overall control. Cont basal/bolus insulin while in- patient. BSG AC HS, holding Lantus at this time as she is too weak and altered to eat anything. Cont with ICU regimen for glucose control on transition to ICU care. Continue Lantus and insulin sliding scale (13) COPD (chronic obstructive pulmonary disease): Plan: chronic, stable-no wheezing. Does not require O2 at baseline. Former smoker. Continue Anoro Ellipda, Albuterol inh PRN (14) Hypothyroidism: Plan: Continue levothyroxine per home regimen. (15) Thickened endometrium: Plan: Esophageal varices with a small volume of abdominal pelvic ascites and splenomegaly indicating portal hypertension is present. There is also wall thickening of the right colon with mild pericolic infiltration which could present a nonspecific colitis. She continues on antibiotics and would appreciate gastroenterology thoughts on this. Endometrium is abnormally thickened for age which will be not emergently evaluated with a pelvic ultrasound and HOTBED TRANSFER OPERATOR evaluation as outpatient. 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 Follow-up as outpatient for monitoring. (17) DVT prophylaxis: Plan: DVT Ppx:heparin q12h Code status: DNR Dispo-pending, may need to transition to acute rehab versus intermediate facility upon discharge when medically stable Admission and Anticipated Discharge Date Admission Date: November 08, 2021 Subjective ff up for encephalopathy, sepsis, etc seen resting in bed, on 2 L NC able to state name, birthday, daughter's name was able to eat breakfast with assistance takes medications as well no other signs/symptoms noted no other issues per early childhood director of Systems Review of Systems: all noted and negative except for above Physical Exam Physical Exam: General- oriented x1-2, not in distress, speaks in sentences with no effort or accessory muscle use eyes mostly closed Eyes- anicteric Neck- no JVD Lungs- mild rales on the left base, no wheezing clear on the right Heart- normal rate, regular rhythm; no murmurs Abdomen- normal bowel sounds, nondistended, soft, nontender Extremities- no pretibial edema, no calf tenderness Neuro- alert, oriented x 1-2; no new gross focal neurologic deficits Skin- warm & dry Results & Data Results & Data ([facility]) Vital Signs (Past 12 Hours) Vital Signs Temp Pulse Pulse Resp BP BP Pulse Ox 11/14/21 16:00 58 L 11/14/21 14:10 65 31 H 157/104 H 93 11/14/21 14:00 64 12 93 11/14/21 13:01 64 26 H 135/68 92 11/14/21 13:00 64 25 H 91 11/14/21 12:01 61 23 122/50 L 95 11/14/21 12:00 36.0 C L 59 L 21 122/50 L 95 11/14/21 11:48 36.0 C L 62 24 93/62 L 94 11/14/21 11:43 58 L 20 93/62 L 92 11/14/21 11:00 59 L 21 92 11/14/21 10:00 70 25 H 91 11/14/21 09:00 72 29 H 90 11/14/21 08:16 72 33 H 209/104 H 87 L 11/14/21 08:04 72 20 189/111 H 87 L 11/14/21 08:01 71 25 H 93 11/14/21 08:00 68 25 H 92 11/14/21 07:01 73 32 H 230/100 H 91 11/14/21 07:00 71 30 H 90 11/14/21 06:01 66 26 H 177/72 H 93 11/14/21 06:00 68 22 90 11/14/21 05:00 70 33 H 82 L (1) Pneumonia Laterality: right Lung location: unspecified part of lung Pneumonia type: due to unspecified organism Qualified Code(s): J18.9 - Pneumonia, unspecified organism
[2021-11-14] MEDS ORDERED: XOPENEX/ATROVENT 1.25mg/0.5MG NEB COMBO NEB SCH (19:00)
[2021-11-14] MEDS: LEVALBUTEROL 1.25MG/0.5ML NEB INH SCH (19:50)
[2021-11-14] MEDS: IPRATROPIUM BROMIDE NEB SOLN 0.02% 2.5 ML VIAL INH SCH (19:50)
[2021-11-14] MEDS ORDERED: HEPARIN SOD 5,000 UNIT/0.5 ML VIAL SQ SCH (21:00)
[2021-11-14] MEDS: GABAPENTIN 300 MG CAP PO SCH (21:23)
[2021-11-14] MEDS: FAMOTIDINE 40 MG TABLET PO SCH (21:24)
[2021-11-15] MEDS: INSULIN ASPART PER UNIT SC SCH ×6 (00:29→20:02)
[2021-11-15] MEDS: hydrALAZINE HCL 20 MG/ML VIAL IV PRN (04:17)
[2021-11-15] MEDS: LEVALBUTEROL 1.25MG/0.5ML NEB INH SCH ×4 (05:38→19:49)
[2021-11-15] MEDS: IPRATROPIUM BROMIDE NEB SOLN 0.02% 2.5 ML VIAL INH SCH ×4 (05:38→19:49)
[2021-11-15] MEDS: INSULIN GLARGINE SOLOSTAR 100 UNITS/ML 3 ML PEN SC SCH ×2 (08:10→20:03)
--- NOTE | 2021-11-15 08:52 | XRay Report ---
XR chest 1V portable HISTORY: 86 years-old Female ff up hypoxia, pneumonia acute shortness breath with pneumonia COMPARISON: Chest radiograph 11/14/2021 TECHNIQUE: Portable AP view of the chest FINDINGS: Cardiac silhouette is enlarged. Atherosclerosis of the aorta. No pneumothorax. Pulmonary vascular con gestion. Left greater than right layering pleural effusions with bibasilar consolidation. There is a line projecting over the right upper lung which is suggestive of a probable skin fold. Degenerative c hanges of the shoulders and spine. Healed chronic left-sided rib fractures. Vascular stents of the le ft subclavian and brachiocephalic distributions. IMPRESSION: 1. Cardiomegaly with pulmonary vascular congestion. 2. Layering left greater than right pleural effusions with bibasilar consolidation appears generally stable from prior. ACT 112: Negative or not required by law. The above report was generated using voice recognition software. It may contain grammatical, syntax o r spelling errors. Electronically signed by: Hector Talamantes M.D. 11/15/2021 8:50 AM
[2021-11-15 09:30] LABS: Hemoglobin 12.1 g/dL (12.0-16.0); Mean Corpuscular Hemoglobin 26.9 pg (25-34); Mean Corpuscular Volume 86.9 fL (80-100); Mean Platelet Volume 10.9 fL (7.4-10.4); Platelet Count 153 K/uL (130-400); RDW Coefficient of Variation 23.2 % (11.5-14.5); Red Blood Count 4.49 M/uL (4.2-5.4)
[2021-11-15 09:54] LABS: Calcium 9.2 mg/dl (8.5-10.1); Creatinine Clr Calc Pharmacy 33.8 ml/min; Est GFR (African American) 56.7 ml/min; Potassium 4.9 mmol/L (3.5-5.1)
[2021-11-15 09:55] LABS: Albumin Globulin Ratio 0.4 (0.9-2); Bilirubin,Total 1.3 mg/dl (0.2-1); Globulin 4.5 gm/dl (2.5-4.0); Total Protein 6.5 gm/dl (6.4-8.2)
[2021-11-15 10:02] LABS: Anisocytosis Present; Basophils # (auto) 0.06 K/uL (0-0.2); Basophils % (auto) 0.5 %; Eosinophils # (auto) 0.32 K/uL (0-0.5); Eosinophils % (auto) 2.6 %; Immature Granulocytes # (auto) 0.12 K/uL (0.00-0.02); Lymphocytes # (auto) 1.48 K/uL (1.2-3.4); Monocytes # (auto) 0.49 K/uL (0.11-0.59); Neutrophils # (auto) 9.83 K/uL (1.4-6.5); Neutrophils % (auto) 79.9 %
[2021-11-15] MEDS: LEVOTHYROXINE SODIUM IV SCH (10:44)
[2021-11-15] MEDS: amLODIPine BESYLATE 5 MG TAB PO SCH (10:44)
[2021-11-15] MEDS: carvediloL 6.25 MG TAB PO SCH ×2 (10:44→20:40)
[2021-11-15] MEDS: CLOPIDOGREL BISULFATE 75 MG TAB PO SCH (10:44)
[2021-11-15] MEDS: UMECLIDINIUM/VILANTEROL 62.5/25MCG 7 PUFFS/INHALER INH SCH (10:45)
[2021-11-15] MEDS: ASPIRIN 81 MG ECTAB PO SCH (10:45)
[2021-11-15] MEDS: HEPARIN SOD 5,000 UNIT/0.5 ML VIAL SQ SCH ×2 (10:45→20:39)
[2021-11-15] MEDS: ATORVASTATIN 20 MG TAB PO SCH (10:45)
[2021-11-15] MEDS: AMPICILLIN/SULBACTAM SOD 3,000 MG in 0.9 % SODIUM CHLORIDE 100 ML IV SCH ×2 (11:41→23:54)
[2021-11-15] MEDS ORDERED: FUROSEMIDE 40 MG/4 ML VIAL IV ONE (12:00)
[2021-11-15] MEDS: cefTRIAXone SODIUM 1,000 MG in DEXTROSE 5% 50 ML IV SCH (12:19)
--- NOTE | 2021-11-15 13:17 | Pharmacy Report ---
Pharmacy Glycemic Short Note 2 - Date of Service November 15, 2021 - Glycemic Short BSG Results (Last 24 hours): 11/14/21 11/14/21 11/15/21 16:05 21:11 00:27 Glucose POC Glucose 166 H 162 H 92 11/15/21 11/15/21 11/15/21 04:58 07:54 08:47 Glucose 91 POC Glucose 90 82 11/15/21 10:54 Glucose POC Glucose 93 OUTPATIENT ANTIDIABETIC REGIMEN: * Tresiba 15 units Q AM * Sitagliptin 100mg PO daily * A1c = 9.4% 11/09/21 ASSESSMENT: 11/15 * Patient well controlled over the past 24 hours, receiving only 5 units of insulin total * Patient's PO intake appears to be minimal. * Will loosen lantus scale and continue with novolog protocol for now 11/12 * Type 2 diabetic admitted for sepsis secondary to multifocal pneumonia, UTI * Patient has been transferred to ICU * Nephrology has ordered dextrose containing IVFs (D5W + 50mEq Bicarb + 40mEq K Tom) to run at 125cc/hr for metabolic acidosis, hypernatremia. * BSGs had been well controlled until yesterday afternoon, suspect deterioration in control was secondary to dextrose provision in IVs used to provide free water. * Plan to continue with scaled Lantus dosing BID in current dose as she has required little basal insulin this admission due to poor PO intake * Plan to adjust Novolog dosing to Q 4 hrs, provide a scheduled dose of Novolog while in goal range on dextrose containing fluids to help cover the 25gm carbs provided every 4 hours. This scale can be converted back to traditional CF/CR dosing when dextrose containing IVFs d/c'd or rate reduced PLAN FOR INPATIENT GLYCEMIC CONTROL: * Hold outpatient oral diabetes medications (sitagliptin) * Basal insulin * Lantus 0-8 units SQ BID per scale * Bolus insulin * NovoLog per scale Q 4 hrs while on current dextrose containing IVFs, please use carb ratio indicated as well: PLAN FOR DISCHARGE: * to be determined
--- NOTE | 2021-11-15 13:19 | Hospitalist Progress Note ---
Date of Service November 15, 2021 Assessment & Plan (1) Acute metabolic encephalopathy: Plan: Per Dr. Singh's notes with addendum including below. Initially resolved after sepsis resuscitation, however, she has become obtunded overnight. Multiple factors likely contributing with worsening hypoxia, hypernatremia, and ongoing infections-not an exhaustive list of contributing factors. 11/15/2019 more conversant, answers more question appropriately continue to monitor (2) Hypoxia: Plan: 2/2 pneumonia. Currently on vanc and cefepime. Notably aspiration was considered, however, speech reported no issues wtih aspiration on her examination and she initially improved on abx. Therefore, flagyl was not added. Now further hypoxia is possibly 2/2 fluid overload after resuscitation efforts and she has already received some Lasix overnight BP is low and she is hypernatremia. On dextrose at a low rate. Echo ordered for this am. Transferred to ICU and phenylephrine started. Cont further management per medical lab specialist. 11/15/2021 Transition from CPAP to 3-4 L of oxygen via nasal cannula--> now on oxymask 12L repeat CXR: (+) BL pleural effusion Lasix 40mg IV now Continue Unasyn plus ceftriaxone for pneumonia chest percussion therapy, nebs (+) hypothermia repeat blood and urine culture TSH normal requested re-eval from Receptionist Clerk/Pulm service (3) Atrial fibrillation with rapid ventricular response: Plan: New onset atrial fibrillation with RVR overnight in setting of pulmonary illness and possible fluid overload after resuscitation from sepsis. Rate in in the low 100s. PE considered as she has not been on anticoagulation this admission 2/2 thrombocytopenia and has an elevated risk of DVT. However, she is too unstable to go to the CT scanner at this point. Cont rate control with metoprolol IV as needed. Echo pending and cardiology was consulted. 11/15/2021 Normal sinus rhythm Cardiology service on board (4) Pneumonia: Plan: Covid, flu A/B, RSV PCR negative, hypoxia as above. CT chest with right lower lobe consolidative opacities concerning for pneumonia and/or aspiration. Initially was started on vanc and Zosyn. Out of concerns for EARL, changed Zosyn to cefepime. Oxygen supplementation, wean as tolerated. Speech evaluation revealed no concerns for aspiration. Sputum culture reveals strep pneumo and MSSA. Remains on vanc and Cefepime. Antibiotic changes per ICU team at this point. 11/15/21 per above (5) UTI (urinary tract infection): Plan: Vanc sensitive enterococcus. Cont abx with de-escalation per ICU team as able. 11/15/21 management of antibiotics per above (6) Sepsis: Plan: Resuscitated. Cont antibiotics. (7) Abdominal pain: Plan: Initially was resolved, however, appeared to withdraw from pain during exam this morning. She is altered and on BIPAP, actively trying to remove her mask and with mitts on. She is not a reliable historian at this time. During this admission, in the setting of abdominal pain with cirrhosis, hyperbilirubinemia and cholelithiasis she was also seen by gastroenterology and surgery who felt no further workup or treatments were warranted. Her elevated total bilirubin and tender abdomen was thought to be possibly secondary to infection or sepsis versus decompensated cirrhosis. As this has improved with treatment of her infection and it was more likely the former. Defer further workup to ICU team as needed. CT also found that endometrium is abnormally thickened for age which will be not emergently evaluated with a pelvic ultrasound and CUSTOMER ACCOUNT SPECIALIST evaluation as outpatient. 11/14/2021 no signs of abdominal pain (8) Fall: Plan: Patient remembers falling out of her bed -likely related to weakness in setting of metabolic encephalopathy which is now clearing. Min CK elevation expected. Likely improved after IVF resuscitation. CT head, cervical spine CT, chest CT, pelvic XR without evidence of acute trauma or fracture. Cont with Fall precautions, PT OT evaluation PT and OT evaluation (9) Acute kidney injury superimposed on chronic kidney disease: Plan: Cr elevated at 1.36 (baseline ~ 0.9) in setting of dehydration and sepsis. Remains 1.5 today. Lasix given overnight. Would repeat BMP q12h but defer to ICU team Creatinine improved, now 1.0 s/p bicarb drip Nephrology service consulted (10) PAD (peripheral artery disease): Plan: chronic, stable. S/p stent L subclavian, superior mesenteric artery, L iliac and fempop bypass Follows with Dr. Andrade of vascular surgery in [place] Continue aspirin, plavix, statin (11) Cirrhosis: Plan: Diagnosed in January 2021, [facility] [place] [facility], She is at risk for hypervolemia so we will be cautious with IV fluids. Possibly more hypervolemic now. Ammonia level was checked yesterday and was <10, so somnolence was not thought to be related to hepatic encephalopathy, however, this could be reassessed with declined mental status today. 11/15/21 seems to be compensated overall (12) DM II (diabetes mellitus, type II), controlled: Plan: A1c 9.4 reflecting poor overall control. Cont basal/bolus insulin while in- patient. BSG AC HS, holding Lantus at this time as she is too weak and altered to eat anything. Cont with ICU regimen for glucose control on transition to ICU care. Continue Lantus and insulin sliding scale (13) COPD (chronic obstructive pulmonary disease): Plan: chronic, stable-no wheezing. Does not require O2 at baseline. Former smoker. Continue Anoro Ellipda, Albuterol inh PRN (14) Hypothyroidism: Plan: Continue levothyroxine per home regimen. (15) Thickened endometrium: Plan: Esophageal varices with a small volume of abdominal pelvic ascites and splenomegaly indicating portal hypertension is present. There is also wall thickening of the right colon with mild pericolic infiltration which could present a nonspecific colitis. She continues on antibiotics and would appreciate gastroenterology thoughts on this. Endometrium is abnormally thickened for age which will be not emergently evaluated with a pelvic ultrasound and CUSTOMER ACCOUNT SPECIALIST evaluation as outpatient. 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 Follow-up as outpatient for monitoring. (17) DVT prophylaxis: Plan: DVT Ppx:heparin q12h Code status: DNR Dispo-pending, may need to transition to acute rehab versus [facility] facility upon discharge when medically stable Admission and Anticipated Discharge Date Admission Date: November 08, 2021 Subjective ff up for sepsis, encephalopathy, etc seen resting in bed, on 12 L oxymask temp 35.6 eyes closed but answering questions appropriately states she has mild dyspnea no cough, chest pain denies pain in her body had PT at bedside today, tolerated well no other symptoms no other issues per proration clerk of Systems Review of Systems: all noted and negative except for above Physical Exam Physical Exam: General- oriented x 2, not in distress, speaks in sentences with no effort or accessory muscle use Eyes- anicteric Neck- no JVD Lungs- decreased breath sounds right, clear on the left Heart- normal rate, regular rhythm; no murmurs Abdomen- normal bowel sounds, nondistended, soft, nontender Extremities- no pretibial edema, no calf tenderness Neuro- alert, oriented x 2; no new gross focal neurologic deficits Skin- warm & dry Results & Data Results & Data ([facility]) Vital Signs (Past 12 Hours) Vital Signs Temp Pulse Pulse Resp BP BP Pulse Ox 11/15/21 12:59 69 22 94 11/15/21 11:41 35.5 C L 94 11/15/21 10:57 35.7 C L 71 22 173/74 H 93 11/15/21 08:33 35.6 C L 157/61 H 98 11/15/21 07:51 63 11/15/21 07:47 35.6 C L 65 22 149/63 H 88 L 11/15/21 05:38 65 22 94 11/15/21 05:00 62 28 H 90 11/15/21 04:46 36.5 C 65 27 H 111/95 91 11/15/21 04:06 64 32 H 193/93 H 88 L 11/15/21 04:04 65 32 H 210/82 H 90 11/15/21 04:00 36.4 C L 63 24 193/93 H 92 all noted and reviewed including below (1) Pneumonia Laterality: right Lung location: unspecified part of lung Pneumonia type: due to unspecified organism Qualified Code(s): J18.9 - Pneumonia, unspecified organism
[2021-11-15] MEDS: GABAPENTIN 300 MG CAP PO SCH (20:39)
[2021-11-15] MEDS: FAMOTIDINE 40 MG TABLET PO SCH (20:39)
[2021-11-16] MEDS: INSULIN ASPART PER UNIT SC SCH ×6 (00:06→21:00)
[2021-11-16] MEDS: IPRATROPIUM BROMIDE NEB SOLN 0.02% 2.5 ML VIAL INH SCH ×5 (01:17→23:41)
[2021-11-16] MEDS: LEVALBUTEROL 1.25MG/0.5ML NEB INH SCH ×5 (01:17→23:41)
[2021-11-16] MEDS ORDERED: FUROSEMIDE INJ 20 MG/2 ML VIAL IV ONE ×3 (04:08→18:14)
[2021-11-16] MEDS: LEVOTHYROXINE SODIUM 88 MCG TABLET PO SCH (04:14)
[2021-11-16 05:03] LABS: Basophils # (auto) 0.02 K/uL (0-0.2); Basophils % (auto) 0.2 %; Eosinophils # (auto) 0.27 K/uL (0-0.5); Eosinophils % (auto) 2.3 %; Hematocrit (blood only) 37.7 % (37-47); Hemoglobin 11.3 g/dL (12.0-16.0); Immature Granulocytes % (auto) 0.8 %; Lymphocytes # (auto) 1.82 K/uL (1.2-3.4); Lymphocytes % (auto) 15.3 %; Mean Corpuscular Volume 86.7 fL (80-100); Mean Platelet Volume 10.6 fL (7.4-10.4); Monocytes # (auto) 0.59 K/uL (0.11-0.59); Neutrophils # (auto) 9.09 K/uL (1.4-6.5); Neutrophils % (auto) 76.4 %; Platelet Count 173 K/uL (130-400); RDW Coefficient of Variation 23.2 % (11.5-14.5); RDW Standard Deviation 72.2 fL (36.4-46.3); Red Blood Count 4.35 M/uL (4.2-5.4); White Blood Count 11.89 K/uL (4.8-10.8)
[2021-11-16 05:22] LABS: BUN Creatinine Ratio 33.6 (10-20); Calcium 8.9 mg/dl (8.5-10.1); Creatinine Clr Calc Pharmacy 27.7 ml/min; Est GFR (African American) 44.6 ml/min; Est GFR (Non-African American) 38.5 ml/min; Potassium 4.7 mmol/L (3.5-5.1)
[2021-11-16 05:25] LABS: Albumin Globulin Ratio 0.4 (0.9-2); Globulin 4.5 gm/dl (2.5-4.0); Total Protein 6.5 gm/dl (6.4-8.2)
[2021-11-16] MEDS: hydrALAZINE HCL 20 MG/ML VIAL IV PRN (05:27)
[2021-11-16 05:31] LABS: Anisocytosis Present; Echinocytes 1+; Ovalocytes 1+
[2021-11-16] MEDS ORDERED: FUROSEMIDE 40 MG/4 ML VIAL IV ONE (07:55)
[2021-11-16] MEDS ORDERED: CONSULT PHARMACY STA (07:59)
[2021-11-16 08:19] LABS: Allen Test Pos (Pos); Base Excess ABG 1.1 mEq/L (-9-1.8); HCO3 ABG 25 mmol/L (19-24); PCO2 ABG 36 mmHg (35-46); PO2 ABG 57 mmHg (80-95); pH ABG 7.45 (7.35-7.45)
--- NOTE | 2021-11-16 08:46 | XRay Report ---
XR chest 1V portable CLINICAL HISTORY: Hypoxia. Follow-up pleural effusions and bibasilar consolidation. COMPARISON STUDY: 11/15/2021 TECHNIQUE: 1 view of the chest FINDINGS: Single frontal view of the chest demonstrates the cardiomediastinal silhouette to be within normal li mits. The patient appears in a more upright position on the current study with what appears to be dec rease in bilateral pleural effusions. There are most likely within the posterior gutter. There is abby dence for bibasilar atelectasis with no definite focal alveolar opacities or air bronchograms. The up per lungs are clear bilaterally. There is no evidence for vascular congestion. There is no acute osse ous pathology. IMPRESSION: Compared to the previous study, the patient is in a more upright position with what appea rs to be decrease in bilateral pleural effusions. However, they're most likely within the posterior g utters. There is bibasilar atelectasis with no confluent alveolar opacities or air bronchograms. ACT 112: Negative or not required by law. Electronically signed by: Todd Dennis M.D. 11/16/2021 8:45 AM
[2021-11-16] MEDS: UMECLIDINIUM/VILANTEROL 62.5/25MCG 7 PUFFS/INHALER INH SCH (11:15)
[2021-11-16] MEDS: amLODIPine BESYLATE 5 MG TAB PO SCH (11:16)
[2021-11-16] MEDS: carvediloL 6.25 MG TAB PO SCH ×2 (11:16→21:52)
[2021-11-16] MEDS: ASPIRIN 81 MG ECTAB PO SCH (11:17)
[2021-11-16] MEDS: CLOPIDOGREL BISULFATE 75 MG TAB PO SCH (11:17)
[2021-11-16] MEDS: ATORVASTATIN 20 MG TAB PO SCH (11:17)
[2021-11-16] MEDS: HEPARIN SOD 5,000 UNIT/0.5 ML VIAL SQ SCH ×2 (11:17→21:50)
[2021-11-16] MEDS: INSULIN GLARGINE SOLOSTAR 100 UNITS/ML 3 ML PEN SC SCH ×2 (11:18→21:24)
[2021-11-16] MEDS: AMPICILLIN/SULBACTAM SOD 3,000 MG in 0.9 % SODIUM CHLORIDE 100 ML IV SCH ×2 (11:59→23:56)
--- NOTE | 2021-11-16 15:52 | Hospitalist Progress Note ---
Date of Service November 16, 2021 Assessment & Plan (1) Acute metabolic encephalopathy: Plan: Per Dr. Singh's notes with addendum including below. Initially resolved after sepsis resuscitation, however, she has become obtunded overnight. Multiple factors likely contributing with worsening hypoxia, hypernatremia, and ongoing infections-not an exhaustive list of contributing factors. 11/16/2019 Continues to be more conversant, answers more question appropriately continue to monitor (2) Hypoxia: Plan: 2/2 pneumonia. Currently on vanc and cefepime. Notably aspiration was considered, however, speech reported no issues wtih aspiration on her examination and she initially improved on abx. Therefore, flagyl was not added. Now further hypoxia is possibly 2/2 fluid overload after resuscitation efforts and she has already received some Lasix overnight BP is low and she is hypernatremia. On dextrose at a low rate. Echo ordered for this am. Transferred to ICU and phenylephrine started. Cont further management per treasury consultant. 11/06/20 Transition from CPAP to 3-4 L of oxygen via nasal cannula--> now on oxymask 1 repeat CXR: (+) BL pleural effusion, bibasilar atelectasis Lasix 40mg IV twice daily today Continue Unasyn plus ceftriaxone for pneumonia chest percussion therapy, nebs (+) hypothermia-resolved: Pending repeat blood and urine culture TSH normal (3) Atrial fibrillation with rapid ventricular response: Plan: New onset atrial fibrillation with RVR overnight in setting of pulmonary illness and possible fluid overload after resuscitation from sepsis. Rate in in the low 100s. PE considered as she has not been on anticoagulation this admission 2/2 thrombocytopenia and has an elevated risk of DVT. However, she is too unstable to go to the CT scanner at this point. Cont rate control with metoprolol IV as needed. Echo pending and cardiology was consulted. 11/15/2021 Normal sinus rhythm Cardiology service on board (4) Pneumonia: Plan: Covid, flu A/B, RSV PCR negative, hypoxia as above. CT chest with right lower lobe consolidative opacities concerning for pneumonia and/or aspiration. Initially was started on vanc and Zosyn. Out of concerns for EARL, changed Zosyn to cefepime. Oxygen supplementation, wean as tolerated. Speech evaluation revealed no concerns for aspiration. Sputum culture reveals strep pneumo and MSSA. Remains on vanc and Cefepime. Antibiotic changes per ICU team at this point. 11/15/21 per above (5) UTI (urinary tract infection): Plan: Vanc sensitive enterococcus. Cont abx with de-escalation per ICU team as able. 11/15/21 management of antibiotics per above (6) Sepsis: Plan: Resuscitated. Cont antibiotics. (7) Abdominal pain: Plan: Initially was resolved, however, appeared to withdraw from pain during exam this morning. She is altered and on BIPAP, actively trying to remove her mask and with mitts on. She is not a reliable historian at this time. During this admission, in the setting of abdominal pain with cirrhosis, hyperbilirubinemia and cholelithiasis she was also seen by gastroenterology and surgery who felt no further workup or treatments were warranted. Her elevated total bilirubin and tender abdomen was thought to be possibly secondary to infection or sepsis versus decompensated cirrhosis. As this has improved with treatment of her infection and it was more likely the former. Defer further workup to ICU team as needed. CT also found that endometrium is abnormally thickened for age which will be not emergently evaluated with a pelvic ultrasound and RN GASTROENTEROLOGY evaluation as outpatient. Currently denies abdominal pain (8) Hypertension: Plan: Amlodipine started, increased to 7.5 mg p.o. daily Usual losartan on hold due to recent acute renal failure, lasix IV currently being given (9) Fall: Plan: Patient remembers falling out of her bed -likely related to weakness in setting of metabolic encephalopathy which is now clearing. Min CK elevation expected. Likely improved after IVF resuscitation. CT head, cervical spine CT, chest CT, pelvic XR without evidence of acute trauma or fracture. Cont with Fall pr ecautions, PT OT evaluation PT and OT evaluation (10) Acute kidney injury superimposed on chronic kidney disease: Plan: Cr elevated at 1.36 (baseline ~ 0.9) in setting of dehydration and sepsis. Remains 1.5 today. Lasix given overnight. Would repeat BMP q12h but defer to ICU team Creatinine improved, now 1.2 s/p bicarb drip Nephrology service consulted (11) PAD (peripheral artery disease): Plan: chronic, stable. S/p stent L subclavian, superior mesenteric artery, L iliac and fempop bypass Follows with Dr. Andrade of vascular surgery in [place] Continue aspirin, plavix, statin (12) Cirrhosis: Plan: Diagnosed in January 2021, [place], She is at risk for hypervolemia so we will be cautious with IV fluids. Possibly more hypervolemic now. Ammonia level was checked yesterday and was <10, so somnolence was not thought to be related to hepatic encephalopathy, however, this could be reassessed with declined mental status today. 11/16/21 seems to be compensated overall (13) DM II (diabetes mellitus, type II), controlled: Plan: A1c 9.4 reflecting poor overall control. Cont basal/bolus insulin while in-patient. BSG AC HS, holding Lantus at this time as she is too weak and altered to eat anything. Cont with ICU regimen for glucose control on transition to ICU care. Continue Lantus and insulin sliding scale (14) COPD (chronic obstructive pulmonary disease): Plan: chronic, stable-no wheezing. Does not require O2 at baseline. Former smoker. Continue Anoro Ellipda, Albuterol inh PRN (15) Hypothyroidism: Plan: Continue levothyroxine per home regimen. (16) Thickened endometrium: Plan: Esophageal varices with a small volume of abdominal pelvic ascites and splenomegaly indicating portal hypertension is present. There is also wall thickening of the right colon with mild pericolic infiltration which could present a nonspecific colitis. She continues on antibiotics and would appreciate gastroenterology thoughts on this. Endometrium is abnormally thickened for age which will be not emergently evaluated with a pelvic ultrasound and RN GASTROENTEROLOGY evaluation as outpatient. (17) Aneurysm of infrarenal abdominal aorta: Plan: incidental finding on CT scan. Follow-up as outpatient for monitoring. (18) DVT prophylaxis: Plan: DVT Ppx:heparin q12h Code status: DNR Dispo-pending, may need to transition to acute rehab versus longterm facility upon discharge when medically stable Admission and Anticipated Discharge Date Admission Date: November 08, 2021 Subjective Follow-up for sepsis, acute hypoxic respiratory failure, pneumonia, UTI, etc. Events overnight noted, had to be placed on CPAP This morning back to oxygen mask on 15 L Patient sleeping but easily awakened Somewhat drowsy but more conversant, oriented x2-3 Answers questions appropriately No active shortness of breath at rest Denies any pain No abdominal pain, nausea or vomiting Had a couple bites of breakfast, able to take her medications today No other symptoms or issues noted per acetylene plant operator of Systems Review of Systems: all noted and negative except for above Physical Exam Physical Exam: General- oriented x 2-3, not in distress, speaks in sentences with no effort or accessory muscle use Eyes- anicteric Neck- no JVD Lungs-positive decreased breath sounds bilaterally, mild crackles on the right, no wheezing Heart- normal rate, regular rhythm; no murmurs Abdomen- normal bowel sounds, nondistended, soft, nontender Extremities- no pretibial edema, no calf tenderness Neuro- alert, oriented x 2-3; no new gross focal neurologic deficits Skin- warm & dry Results & Data Results & Data ([facility]) Vital Signs (Past 12 Hours) Vital Signs Temp Pulse Pulse Resp BP BP Pulse Ox 11/16/21 13:48 67 26 H 94 11/16/21 11:47 75 20 90 11/16/21 08:16 36.5 C 69 27 H 178/74 H 87 L 11/16/21 07:48 59 L 22 88 L 11/16/21 05:23 62 21 171/71 H 93 11/16/21 05:13 61 23 178/64 H 89 L 11/16/21 05:02 60 21 89 L 11/16/21 04:02 63 26 H 171/66 H 88 L 11/16/21 04:00 62 24 90 11/16/21 03:53 58 L 28 H 87 L all noted and reviewed including below (1) Pneumonia Laterality: right Lung location: unspecified part of lung Pneumonia type: due to unspecified organism Qualified Code(s): J18.9 - Pneumonia, unspecified organism
[2021-11-16 19:07] LABS: Base Excess ABG 2.6 mEq/L (-9-1.8); HCO3 ABG 27 mmol/L (19-24); Oxygen Saturation ABG 91.6 % (90-95); PCO2 ABG 41 mmHg (35-46); PO2 ABG 61 mmHg (80-95); pH ABG 7.44 (7.35-7.45)
[2021-11-16 19:09] LABS: Allen Test POS (Pos)
[2021-11-16] MEDS: methylPREDNISolone 40 MG in SYRINGE 0 ML IV SCH (19:14)
[2021-11-16] MEDS: GABAPENTIN 300 MG CAP PO SCH (21:51)
[2021-11-16] MEDS: FAMOTIDINE 40 MG TABLET PO SCH (21:52)
[2021-11-17] MEDS: INSULIN ASPART PER UNIT SC SCH ×6 (00:03→20:05)
[2021-11-17] MEDS: methylPREDNISolone 40 MG in SYRINGE 0 ML IV SCH ×3 (03:25→18:03)
[2021-11-17 05:34] LABS: Basophils # (auto) 0.01 K/uL (0-0.2); Basophils % (auto) 0.1 %; Eosinophils # (auto) 0.02 K/uL (0-0.5); Eosinophils % (auto) 0.2 %; Hematocrit (blood only) 29.8 % (37-47); Hemoglobin 9.1 g/dL (12.0-16.0); Immature Granulocytes # (auto) 0.04 K/uL (0.00-0.02); Immature Granulocytes % (auto) 0.4 %; Lymphocytes # (auto) 1.04 K/uL (1.2-3.4); Lymphocytes % (auto) 10.5 %; Mean Corpuscular Hemoglobin 26.3 pg (25-34); Mean Corpuscular Hgb Conc 30.5 g/dL (32-36); Mean Corpuscular Volume 86.1 fL (80-100); Mean Platelet Volume 11.9 fL (7.4-10.4); Monocytes # (auto) 0.07 K/uL (0.11-0.59); Monocytes % (auto) 0.7 %; Neutrophils # (auto) 8.76 K/uL (1.4-6.5); Neutrophils % (auto) 88.1 %; Platelet Count 211 K/uL (130-400); RDW Coefficient of Variation 23.2 % (11.5-14.5); RDW Standard Deviation 71.8 fL (36.4-46.3); Red Blood Count 3.46 M/uL (4.2-5.4); White Blood Count 9.94 K/uL (4.8-10.8)
[2021-11-17] MEDS: LEVOTHYROXINE SODIUM 88 MCG TABLET PO SCH (06:03)
[2021-11-17 06:25] LABS: Anisocytosis Present; Hypochromasia Present; Toxic Granulation Occasional; Toxic Vacuolation 1+
[2021-11-17 06:26] LABS: Albumin Globulin Ratio 0.6 (0.9-2); Albumin Level 2.3 gm/dl (3.4-5.0); BUN Creatinine Ratio 40.7 (10-20); Bilirubin,Total 1.2 mg/dl (0.2-1.0); Calcium 8.4 mg/dl (8.5-10.1); Creatinine Clr Calc Pharmacy 23.9 ml/min; Est GFR (Non-African American) 32.8 ml/min; Globulin 3.6 gm/dl (2.5-4.0); Potassium 5.5 mmol/L (3.5-5.1); Total Protein 5.9 gm/dl (6.0-8.3)
[2021-11-17] MEDS: IPRATROPIUM BROMIDE NEB SOLN 0.02% 2.5 ML VIAL INH SCH ×3 (07:42→20:25)
[2021-11-17] MEDS: LEVALBUTEROL 1.25MG/0.5ML NEB INH SCH ×3 (07:42→20:26)
[2021-11-17] MEDS: INSULIN GLARGINE SOLOSTAR 100 UNITS/ML 3 ML PEN SC SCH ×2 (08:42→22:09)
[2021-11-17] MEDS: HEPARIN SOD 5,000 UNIT/0.5 ML VIAL SQ SCH (08:46)
[2021-11-17] MEDS: amLODIPine BESYLATE 5 MG TAB PO SCH (08:47)
[2021-11-17] MEDS: ASPIRIN 81 MG ECTAB PO SCH (08:47)
[2021-11-17] MEDS: CLOPIDOGREL BISULFATE 75 MG TAB PO SCH (08:47)
[2021-11-17] MEDS: UMECLIDINIUM/VILANTEROL 62.5/25MCG 7 PUFFS/INHALER INH SCH (08:48)
[2021-11-17] MEDS: carvediloL 6.25 MG TAB PO SCH ×2 (10:18→22:08)
[2021-11-17] MEDS: ATORVASTATIN 20 MG TAB PO SCH (10:18)
[2021-11-17 11:58] LABS: Hematocrit (blood only) 26.4 % (37-47); Hemoglobin 8.2 g/dL (12.0-16.0)
[2021-11-17] MEDS: AMPICILLIN/SULBACTAM SOD 3,000 MG in 0.9 % SODIUM CHLORIDE 100 ML IV SCH ×2 (13:18→22:13)
[2021-11-17] MEDS ORDERED: SODIUM CHLORIDE 0.9% 250 ML IV PRN ×3 (15:07→18:43)
[2021-11-17] MEDS ORDERED: OCTREOTIDE ACETATE 50 MCG in SYRINGE 9.5 ML IV STA (15:29)
[2021-11-17] MEDS ORDERED: PANTOprazole 80 MG in DEXTROSE 5% 100 ML IV STA (15:31)
--- NOTE | 2021-11-17 15:43 | Pharmacy Report ---
Pharmacy Glycemic Short Note 2 - Date of Service November 17, 2021 - Glycemic Short BSG Results (Last 24 hours): 11/16/21 11/16/21 11/16/21 16:14 20:08 23:58 Glucose POC Glucose 136 H 145 H 212 H 11/17/21 11/17/21 11/17/21 03:23 05:15 06:00 Glucose Cancelled 193 H POC Glucose 204 H 11/17/21 11/17/21 07:47 13:12 Glucose POC Glucose 174 H 228 H OUTPATIENT ANTIDIABETIC REGIMEN: * Tresiba 15 units Q AM * Sitagliptin 100mg PO daily * A1c = 9.4% 11/09/21 ASSESSMENT: 11/15 * Patient well controlled over the past 24 hours, receiving only 5 units of insulin total * Patient's PO intake appears to be minimal. * Will loosen lantus scale and continue with novolog protocol for now 11/12 * Type 2 diabetic admitted for sepsis secondary to multifocal pneumonia, UTI * Patient has been transferred to ICU * Nephrology has ordered dextrose containing IVFs (D5W + 50mEq Bicarb + 40mEq K Tom) to run at 125cc/hr for metabolic acidosis, hypernatremia. * BSGs had been well controlled until yesterday afternoon, suspect deterioration in control was secondary to dextrose provision in IVs used to provide free water. * Plan to continue with scaled Lantus dosing BID in current dose as she has required little basal insulin this admission due to poor PO intake * Plan to adjust Novolog dosing to Q 4 hrs, provide a scheduled dose of Novolog while in goal range on dextrose containing fluids to help cover the 25gm carbs provided every 4 hours. This scale can be converted back to traditional CF/CR dosing when dextrose containing IVFs d/c'd or rate reduced PLAN FOR INPATIENT GLYCEMIC CONTROL: * Hold outpatient oral diabetes medications (sitagliptin) * Basal insulin * Lantus 0-8 units SQ BID per scale * Bolus insulin * NovoLog per scale Q 4 hrs while on current dextrose containing IVFs, please use carb ratio indicated as well: PLAN FOR DISCHARGE: * to be determined
[2021-11-17] MEDS ORDERED: MIDAZOLAM HCL 1 MG/ML 2ML VIAL ONE (16:20)
[2021-11-17] MEDS ORDERED: PROPOFOL IV EMULSION 10 MG/ML 20 ML VIAL IV ONE (16:20)
[2021-11-17] MEDS ORDERED: CIPROFLOXACIN / D5W 400 MG/200 ML BAG IV SCH (17:00)
[2021-11-17] MEDS: PANTOprazole 40 MG in DEXTROSE 5% 100 ML IV SCH ×2 (17:21→22:06)
--- NOTE | 2021-11-17 17:23 | Gastroenterology Progress Note ---
Date of Service November 17, 2021 Assessment & Plan Admission and Anticipated Discharge Date Admission Date: November 08, 2021 Subjective Reconsulted on pt for GI bleed. Pt with mult comorbids, cirrhosis with small varices on EGD last year and varices noted on CT this admission. She had 3 episodes of maroon, dark red stool today. Her BP is starting to fall - she was prev hypertensive in the past 2 days, now with systolics 100-110. Her Hgb was 10-12 in the past 1-3 days, is 9 and then 8 today. Her BUN is beginning to increase. She is on high flow oxygen; her recorded sats are in the 80's. Her uop continues to be adequate. She is has been on Plavix, ASA and DVT prophy heparin, now held. She is on Pepcid. On exam, she is awake, pleasant. She has moderate increased WOB, with increased resp rate and some use of accessory muscles. She is able to speak in short phrases. She is fully lucid, clearly comprehending my questions and answering appropriately. Her abdomen is soft and ND. She has no obvious ascites on exam. Her extrem are mildly cool and pale; she is not cyanotic. She has 1 + radial pulses. She has mild pedal edema. Rectal exam shows a moderate amount of dark red blood on bed and staining gown. Plts 211 today, coags normal today. A/P: GIB, cirrhosis, resp failure - Suspect UGIB (PUD, varices), although LGIB also possible. - I had long d/w pt, daughter and family regarding r/b/i of EGD and anesthesia. She was seen by Dr. Granados, who feels that pt's tenuous respiratory status makes her high risk for anesthesia; she would require intubation for EGD and would remain intubated post procedure. The pt has a living will that expresses her wish to be strict DNI. Pt confirms her wish to be DNI during my conversation with her; she states this clearly, forecfully, and repeatedly -- at one point, she even loudly interrupts my conversation with her son to say that she does not want to be intubated. - Pt also states that she does not want an endoscopy. Pt and family are both aware that given her large hgb drop, ongoing bleeding, age and comorbids, that she is likely to continue to bleed if endoscopy is not performed. - Please continue empiric octreotide and PPI gtt for 72 hours, and continue to hold Plavix, ASA, and heparin GTT. Please transfuse for hgb <7. I will sign off, but please reconsult if needed. Results & Data ([facility]) Vital Signs (Past 12 Hours) Vital Signs Pulse Pulse Resp BP Pulse Ox 11/17/21 16:00 72 18 112/43 L 85 L 11/17/21 15:32 74 15 98/50 L 85 L 11/17/21 15:01 74 20 86 L 11/17/21 15:00 74 22 84 L 11/17/21 14:30 73 27 H 87 L 11/17/21 14:00 68 20 87 L 11/17/21 13:00 73 19 96/51 L 83 L 11/17/21 12:35 71 22 11/17/21 12:01 67 20 100/41 L 85 L 11/17/21 12:00 70 21 84 L 11/17/21 11:00 74 20 83 L 11/17/21 10:17 72 23 126/46 L 77 L 11/17/21 10:00 80 24 11/17/21 09:00 74 22 11/17/21 08:00 74 22 92 11/17/21 07:46 72 20 11/17/21 07:00 71 21 134/59 L 89 L 11/17/21 06:00 73 22 122/66 89 L
[2021-11-17] MEDS: OCTREOTIDE ACETATE 500 MCG in 0.9 % SODIUM CHLORIDE 100 ML IV SCH (18:03)
[2021-11-17 18:29] LABS: Hematocrit (blood only) 22.9 % (37-47); Hemoglobin 7.1 g/dL (12.0-16.0)
--- NOTE | 2021-11-17 18:58 | XRay Report ---
XR chest 1V portable HISTORY: 86 years-old Female hypoxia acute shortness of breath COMPARISON: November 16, 2021 TECHNIQUE: Semierect AP view of the chest FINDINGS: Cardiac silhouette is enlarged. Small pleural effusions with mild bibasilar consolidation is similar to prior. Pulmonary vascular congestion. No pneumothorax or overt pulmonary edema. Arterial graft in the region of the left subclavian artery redemonstrated. Degenerative changes of the shoulders and sp ine. IMPRESSION: 1. Cardiomegaly with pulmonary vascular congestion. 2. Unchanged layering pleural effusions with bibasilar consolidation suggestive of atelectasis versus pneumonia. ACT 112: Negative or not required by law. The above report was generated using voice recognition software. It may contain grammatical, syntax o r spelling errors. Electronically signed by: Hector Talamantes M.D. 11/17/2021 6:57 PM
[2021-11-17] MEDS: PHENYLEPHRINE HCL 20 MG in DEXTROSE 5% 500 ML IV SCH (19:42)
--- NOTE | 2021-11-17 21:01 | Hospitalist Progress Note ---
Date of Service November 17, 2021 Assessment & Plan (1) GI bleed: (2) Anemia: Plan: Patient had 3 episode of maroon-colored bowel movement today Hemoglobin dropped from 11 yesterday to 7.1 today GI was notified about the drop in hemoglobin and GI bleed Dr. Armijo discussed the case with daughter, patient and son about EGD Patient will need to get intubated due to respiratory status for the EGD and will remain intubating after the procedure as per anesthesiologist Patient does not want to get intubated for the procedure and pt decided not to proceed with the procedure Dr. Armijo explained to pt and family dennis hgb might continue to drop, ongoing bleeding, if endoscopy is not performed. We will continue PPI drip and octreotide Patient was started on Cipro per GI due to the history of cirrhosis Type and cross done and obtained consent from daughter/patient about blood transfusion We will transfuse 1 unit PRBC now and will place 2 unit on hold in case hemoglobin continued to drop We will continue monitor CBC every 6 hours (3) Acute metabolic encephalopathy: Plan: 86yo F with a PMH of PAD s/p stent L subclavian, superior mesenteric artery, L iliac and fempop bypass, infrarenal AAA measuring 3.9 cm, HTN, HLD, CKD III, insulin dependent DM II, COPD, hypothyroidism, history of C. difficile in May 2021 and other medical problems who presents after unwitnessed fall with acute metabolic encephalopathy, sepsis and pneumonia. Initially resolved after sepsis resuscitation, however, she has become obtunded overnight. Multiple factors likely contributing with worsening hypoxia, hypernatremia, and ongoing infections-not an exhaustive list of contributing factors. CT head on admission showed no acute intracranial hemorrhage, no evidence of acute territorial infarction or other acute intracranial disease process. Clinically improved (4) Pneumonia: (5) Hypoxia: Plan: Possible related to pneumonia initially, and developed fluid overload after resuscitation CT chest on admission showed right lower lobe consolidative opacities concerning for pneumonia and/or aspiration. COVID-19 PCR negative Influenza A/B negative RSV negative Procalcitonin: 39 --> 13 Initially was started on vanc and Zosyn. Out of concerns for EARL, changed Zosyn to cefepime. Sputum culture growing strep as well as MSSA Speech was consulted and reported no issues wtih aspiration on her examination and she initially improved on abx. Then further hypoxia is possibly 2/2 fluid overload after resuscitation efforts Repeat chest x-ray today showed pulmonary vascular congestion. Unchanged layering pleural effusions with bibasilar consolidation suggestive of atelectasis versus pneumonia. Currently on 15 L oxygen supplement via oxygen mask Currently on Unasyn and Solu-Medrol We will hold the Solu-Medrol for now due to the GI bleed in a cirrhosis patient Lasix as needed if BP stable (6) Atrial fibrillation with rapid ventricular response: Plan: New onset atrial fibrillation with RVR overnight in setting of pulmonary illness and possible fluid overload after resuscitation from sepsis. Currently on normal sinus rhythm with rate stable Cardiology on board ECHO showed LV function is well-preserved and no significant valvular pathology. No additional recommendations at this time. Continue carvedilol 6.25 twice daily (7) UTI (urinary tract infection): Plan: Urine culture grew Enterococcus faecalis Received IV Vanco (8) Sepsis: Plan: Resuscitated. Cont antibiotics. (9) Abdominal pain: Plan: Initially was resolved, however, appeared to withdraw from pain during exam this morning. She is altered and on BIPAP, actively trying to remove her mask and with mitts on. She is not a reliable historian at this time. During this admission, in the setting of abdominal pain with cirrhosis, hyperbilirubinemia and cholelithiasis she was also seen by gastroenterology and surgery who felt no further workup or treatments were warranted. Her elevated total bilirubin and tender abdomen was thought to be possibly secondary to infection or sepsis versus decompensated cirrhosis. As this has improved with treatment of her infection and it was more likely the former. Defer further workup to ICU team as needed. CT also found that endometrium is abnormally thickened for age which will be not emergently evaluated with a pelvic ultrasound and DIALS INSPECTOR evaluation as outpatient. Currently denies abdominal pain (10) Hypertension: Plan: We will hold bp meds due to low hemoglobin from GI bleed Continue monitor BP (11) Fall: Plan: Patient remembers falling out of her bed -likely related to weakness in setting of metabolic encephalopathy which is now clearing. Min CK elevation expected. Likely improved after IVF resuscitation. CT head, cervical spine CT, chest CT, pelvic XR without evidence of acute trauma or fracture. Cont with Fall precautions, PT OT evaluation (12) Acute kidney injury superimposed on chronic kidney disease: Plan: Cr elevated at 1.36 (baseline ~ 0.9) in setting of dehydration and sepsis. Creatinine 1.45 today Nephrology on board Continue monitor BMP while getting IV Lasix as needed (13) PAD (peripheral artery disease): Plan: chronic, stable. S/p stent L subclavian, superior mesenteric artery, L iliac and fempop bypass Follows with Dr. Andrade of vascular surgery in [place] Will hold aspirin, plavix, statin due to active GI bleed (14) Cirrhosis: Plan: Diagnosed in January 2021, [place], She is at risk for hypervolemia so we will be cautious with IV fluids. Possibly more hypervolemic now. Ammonia level was checked yesterday and was <10, so somnolence was not thought to be related to hepatic encephalopathy, however, this could be reassessed with declined mental status today. (15) DM II (diabetes mellitus, type II), controlled: Plan: A1c 9.4 reflecting poor overall control. Pharmacy on board for glycemic management Continue monitor blood sugar Continue Lantus and insulin sliding scale (16) COPD (chronic obstructive pulmonary disease): Plan: chronic, stable-no wheezing. Does not require O2 at baseline. Former smoker. Continue Anoro Ellipda, Albuterol inh PRN (17) Hypothyroidism: Plan: Continue levothyroxine per home regimen. (18) Thickened endometrium: Plan: Esophageal varices with a small volume of abdominal pelvic ascites and splenomegaly indicating portal hypertension is present. There is also wall thickening of the right colon with mild pericolic infiltration which could present a nonspecific colitis. She continues on antibiotics and would appreciate gastroenterology thoughts on this. Endometrium is abnormally thickened for age which will be not emergently evaluated with a pelvic ultrasound and DIALS INSPECTOR evaluation as outpatient. (19) Aneurysm of infrarenal abdominal aorta: Plan: incidental finding on CT scan. Follow-up as outpatient for monitoring. (20) DVT prophylaxis: Plan: DVT Ppx: Heparin on hold due to active GI bleed Code status: DNR Dispo-we will discharge once medically stable Admission and Anticipated Discharge Date Admission Date: November 08, 2021 Subjective Patient was seen and examined for follow-up of hypoxia and GI bleed Lying in bed with mild respiratory distress on 15L oxygen supplement Pt had 3 episodes of maroon BM today Her hemoglobin dropped to 7.1 this afternoon Daughter at bedside and provided with update GI was notified about the GI bleed and drop in hemoglobin Dr. Armijo and anesthesiologist discussed the case with daughter about EGD And dr. Armijo spoke to his son as well. Anesthesiology said patient will need to get intubated due to respiratory status for the EGD and will remain intubating after the procedure Patient does not want to get intubated for the procedure and pt decided not to proceed with the procedure Daughter and son agree with patient wishes about no intubation Dr. Armijo explained to pt and family dennis hgb might continue to drop, ongoing bleeding, if endoscopy is not performed. Review of Systems Review of Systems: All systems reviewed & are unremarkable except as noted in Subjective Physical Exam Physical Exam: General-GI bleed with mild respiratory distress Head- atraumatic Eyes- PERRL, EOMI, ENT- oropharynx clear Neck- supple, no JVD Lungs- + diminished breath sounds Heart- regular rhythm; no murmur Abdomen- normal bowel sounds,nontender Extremities- no calf tenderness Neuro- alert, awake and oriented, PERRL, no facial palsy; no dysarthria Skin- warm & dry Results & Data Results & Data ([facility]) Vital Signs (Past 12 Hours) Vital Signs Pulse Pulse Resp BP Pulse Ox 11/17/21 20:28 65 15 88 L 11/17/21 16:00 72 18 112/43 L 85 L 11/17/21 15:32 74 15 98/50 L 85 L 11/17/21 15:01 74 20 86 L 11/17/21 15:00 74 22 84 L 11/17/21 14:30 73 27 H 87 L 11/17/21 14:00 68 20 87 L 11/17/21 13:00 73 19 96/51 L 83 L 11/17/21 12:35 71 22 11/17/21 12:01 67 20 100/41 L 85 L 11/17/21 12:00 70 21 84 L 11/17/21 11:00 74 20 83 L 11/17/21 10:17 72 23 126/46 L 77 L 11/17/21 10:00 80 24 11/17/21 09:00 74 22 (1) Anemia Anemia type: unspecified type Qualified Code(s): D64.9 - Anemia, unspecified (2) Pneumonia Laterality: right Lung location: unspecified part of lung Pneumonia type: due to unspecified organism Qualified Code(s): J18.9 - Pneumonia, unspecified organism
[2021-11-17] MEDS: GABAPENTIN 300 MG CAP PO SCH (22:09)
--- NOTE | 2021-11-18 00:02 | Communication Note ---
Date of Service: November 18, 2021 Made aware by RN of patient/family request to transfer patient to [facility] for second opinion. Case discussed with a.m. provider earlier. Patient initially unwilling to undergo intubation for contemplated EGD procedure after discussion with GI specialist as per AM provider. Spoke to patient at bedside. Patient now agreeable to intubation for endoscopic procedure. Will request AM provider to contact GI service. Patient okay to stay at [facility] for now until patient reevaluated by GI in a.m. Patient's son updated of patient's decision. He requests updates from providers. Shahrzad Ruddy Jenkins, contact #[phone].
[2021-11-18] MEDS: IPRATROPIUM BROMIDE NEB SOLN 0.02% 2.5 ML VIAL INH SCH ×4 (00:23→20:39)
[2021-11-18] MEDS: LEVALBUTEROL 1.25MG/0.5ML NEB INH SCH ×4 (00:23→20:39)
[2021-11-18] MEDS: INSULIN ASPART PER UNIT SC SCH ×7 (00:30→23:49)
[2021-11-18] MEDS: PANTOprazole 40 MG in DEXTROSE 5% 100 ML IV SCH ×5 (03:54→23:23)
[2021-11-18] MEDS: OCTREOTIDE ACETATE 500 MCG in 0.9 % SODIUM CHLORIDE 100 ML IV SCH ×3 (04:27→23:22)
[2021-11-18] MEDS: LEVOTHYROXINE SODIUM 88 MCG TABLET PO SCH (06:59)
[2021-11-18 07:29] LABS: Albumin Globulin Ratio 0.8 (0.9-2); Albumin Level 2.7 gm/dl (3.4-5.0); BUN Creatinine Ratio 44.3 (10-20); Bilirubin,Total 1.3 mg/dl (0.2-1.0); Calcium 8.1 mg/dl (8.5-10.1); Creatinine Clr Calc Pharmacy 18.7 ml/min; Est GFR (African American) 28.3 ml/min; Est GFR (Non-African American) 24.4 ml/min; Globulin 3.3 gm/dl (2.5-4.0); Potassium 4.4 mmol/L (3.5-5.1)
[2021-11-18 08:24] LABS: Nucleated RBC # (auto) 0.02 K/uL (0-0); Nucleated RBC % (auto) 0.2 %
[2021-11-18 08:51] LABS: Echinocytes 1+; Immature Granulocytes # (auto) 0.07 K/uL (0.00-0.02); Immature Granulocytes % (auto) 0.8 %; Lymphocytes # (auto) 0.98 K/uL (1.2-3.4); Lymphocytes % (auto) 10.6 %; Monocytes # (auto) 0.48 K/uL (0.11-0.59); Monocytes % (auto) 5.2 %; Neutrophils # (auto) 7.68 K/uL (1.4-6.5); Neutrophils % (auto) 83.4 %; Polychromasia 1+; Toxic Granulation 1+
[2021-11-18] MEDS: amLODIPine BESYLATE 5 MG TAB PO SCH (08:51)
[2021-11-18 08:52] LABS: Hematocrit (blood only) 29.7 % (37-47); Hemoglobin 9.5 g/dL (12.0-16.0); Mean Corpuscular Hemoglobin 27.9 pg (25-34); Mean Corpuscular Volume 87.1 fL (80-100); RDW Coefficient of Variation 19.9 % (11.5-14.5); RDW Standard Deviation 63.5 fL (36.4-46.3); Red Blood Count 3.41 M/uL (4.2-5.4); White Blood Count 9.21 K/uL (4.8-10.8)
[2021-11-18] MEDS: ATORVASTATIN 20 MG TAB PO SCH (08:52)
[2021-11-18] MEDS: carvediloL 6.25 MG TAB PO SCH ×2 (08:52→20:37)
[2021-11-18] MEDS: UMECLIDINIUM/VILANTEROL 62.5/25MCG 7 PUFFS/INHALER INH SCH (08:53)
[2021-11-18] MEDS: INSULIN GLARGINE SOLOSTAR 100 UNITS/ML 3 ML PEN SC SCH ×2 (08:54→20:45)
[2021-11-18] MEDS: LEVOTHYROXINE SODIUM IV SCH (08:59)
--- NOTE | 2021-11-18 09:21 | Communication Note ---
Date of Service: November 18, 2021 I was asked to reevaluate patient for potential endoscopy procedure today. In brief, patient has a long complicated PMH concerning for worsening respiratory status this admission. She had been fairly certain she did not want to be intubated for this procedure but this morning patient stated she would agree to an intubation if absolutely necessary but wanted to wait for her family to arrive so that they could all be in agreement. I also noted patient was actively eating a cookie when I walked into her ICU room so she is NOT NPO currently. After discussion with patient and GI physician, it appears this patient would likely have to be delayed given that she wasn't NPO unless bleeding intensified or she became more hemodynamically unstable. If so, she would need to be intubated for airway protection. If her H/H stabilizes and she is able to have the EGD done tomorrow AM, she should be made strictly NPO and barring any worsening of her respiratory status, she could possibly be a candidate for sedation in order to prevent intubation and a prolonged ventilator course. Patient agreed with plan but will wait for family to discuss further. Anesth esiologist that will be in charge of endo tomorrow (11/19/21) was made aware and plans to assess patient as well so that we have a solidified plan for tomorrow.
[2021-11-18 09:50] LABS: Mean Platelet Volume 10.8 fL (7.4-10.4); Platelet Count 104 K/uL (130-400)
--- NOTE | 2021-11-18 10:23 | Nephrology Progress Note ---
Date of Service November 18, 2021 Assessment & Plan Admission and Anticipated Discharge Date Admission Date: November 08, 2021 Subjective Assessment & Plan (1) Acute kidney injury superimposed on chronic kidney disease: Plan: Improved but now getting worse again last few days co-inciding with new GI bleed. BP which was previously very high was low multiple times last few days. making urine but decreasing. has CHF on CXR. rec: 1 Daily labs. 2 Agree with lasix 40 iv given CXR findings and she has had quite a lot of fluids and also Blood 3 EARL likely some degree of ATN in pt with liver cirrhosis 4 Minimize fluid if possible. Subjective reconsulted for rising Creat and also ?? about diuretics. Now has Sig GI bleed Review of Systems Review of Systems: Unobtainable due to reduced consciousness Physical Exam Constitutional: well developed and well nourished; no acute distress Eyes: EOM intact bilaterally ENMT: Ears: no external ear abnormality Nose: no external nose abnormality Mouth: + dry oral mucous membranes Neck: no nuchal rigidity Respiratory: normal respiratory effort Auscultation: + diminished lung sounds Cardiovascular: RRR, no murmur, no edema Gastrointestinal (Abdomen): Inspection/Auscultation: normal bowel sounds Percussion/Palpation: abdomen soft; abdomen nontender Musculoskeletal: Extremities: strength 5/5 throughout Skin: no rashes, warm and dry Neurologic: moaning, disoriented; shay; does not interact/follow commands Genitourinary: isaacs w/ ample urine Results & Data ([facility]) Vital Signs (Past 12 Hours) Vital Signs Temp Pulse Pulse Resp BP Pulse Ox 11/18/21 07:27 56 L 23 100 11/18/21 05:00 48 L 16 134/65 100 11/18/21 04:15 55 L 13 128/56 L 99 11/18/21 04:00 57 L 12 100 11/18/21 03:45 57 L 15 121/51 L 97 11/18/21 03:15 55 L 12 128/50 L 98 11/18/21 03:00 54 L 11 L 129/57 L 100 11/18/21 02:45 55 L 13 120/50 L 99 11/18/21 02:30 63 19 115/69 95 11/18/21 02:00 36.7 C 58 L 15 136/48 L 99 11/18/21 01:30 57 L 11 L 133/54 L 100 11/18/21 01:15 62 15 108/48 L 99 11/18/21 01:14 36.7 C 61 17 108/48 L 96 11/18/21 01:00 57 L 12 98 11/18/21 00:24 61 12 98 11/18/21 00:14 36.7 C 60 14 121/48 L 98 11/18/21 00:00 60 14 97 11/17/21 23:59 57 L 11/17/21 23:44 36.7 C 61 14 128/52 L 99 11/17/21 23:29 36.5 C 13 105/51 L 98 11/17/21 23:15 61 15 121/48 L 96 11/17/21 23:12 36.5 C 61 15 140/53 L 11/17/21 23:00 36.5 C 61 15 95 11/17/21 22:56 63 17 140/53 L 93
--- NOTE | 2021-11-18 10:26 | Anesthesiology Consultation ---
Date of Service November 18, 2021 Assessment & Plan (1) Encounter for pre-operative examination: Chart Review Chart Review: Pending: Refer to Additional Notes / Consult section and Patient NOT seen in Pre Admission Testing Patient was not NPO for procedure today. If respiratory status continues to improve, might be able to do procedure with only sedation and prevent possible prolonged intubation. Plan to make patient strictly NPO at midnight. Consults Requested none History Height/Weight Height: 5 ft Weight: 65 kg Allergies Allergy/AdvReac Type Severity Reaction Status Date / Time vitamin E (d-alpha Allergy Intermediate ITCHY Unverified 11/08/21 15:25 tocopherol) RASH, HIVES--PER [facility] 09/21/21 ENCOUNTER amoxicillin AdvReac Intermediate STOMACH Unverified 11/10/21 14:44 UPSET--PER [facility] 09/21/21 ENCOUNTER clavulanic acid AdvReac Intermediate STOMACH Unverified 11/10/21 14:44 UPSET--PER [facility] 09/21/21 ENCOUNTER Medications Home Medications Medication Instructions Recorded Confirmed Last Taken albuterol sulfate 90 mcg/actuation 2 puff INHALATION Q4H PRN 04/10/19 11/08/21 03/29/21 aerosol inhaler (Ventolin HFA) aspirin 81 mg tablet,delayed 81 mg PO QAM 04/10/19 11/08/21 03/29/21 release (Aspirin Low Dose) atorvastatin 20 mg tablet 20 mg PO QAM 04/10/19 11/08/21 03/29/21 carvedilol 6.25 mg tablet 6.25 mg PO BID 04/10/19 11/08/21 03/29/21 clopidogrel 75 mg tablet 75 mg PO QAM 04/10/19 11/08/21 03/29/21 levothyroxine 88 mcg tablet 88 mcg PO QAM 04/10/19 11/08/21 03/29/21 losartan 50 mg tablet 50 mg PO HS 04/10/19 11/08/21 03/28/21 ferrous sulfate 325 mg (65 mg 325 mg PO DAILY #30 tab 12/21/20 11/08/21 03/29/21 iron) tablet (FeroSul) famotidine 40 mg tablet 40 mg PO HS 03/29/21 11/08/21 03/28/21 lidocaine 4 % topical patch 1 patch TOPICAL DAILY 30 Days #30 03/31/21 11/08/21 Unknown ea gabapentin 300 mg capsule 600 mg PO TID 11/08/21 11/08/21 Unknown insulin degludec 200 unit/mL (3 15 unit SUBCUT QAM 11/08/21 11/08/21 Unknown mL) subcutaneous pen (Tresiba FlexTouch U-200 insulin) ipratropium 0.5 mg-albuterol 3 mg 3 ml INHALATION DIRECTED 11/08/21 11/08/21 Unknown (2.5 mg base)/3 mL nebulization soln potassium chloride 10 mEq 10 meq PO DAILY 11/08/21 11/08/21 Unknown capsule,extended release sitagliptin 100 mg tablet (Januvia) 100 mg PO DAILY 11/08/21 11/08/21 Unknown umeclidinium 62.5 mcg-vilanterol 1 inh INHALATION DAILY 11/08/21 11/08/21 Unknown 25 mcg/actuation powdr for inhalation (Anoro Ellipta) Active Medications Generic Name Dose Route Start Last Admin Trade Name Freq PRN Reason Stop Dose Admin Acetaminophen 650 mg 11/08/21 22:38 11/14/21 14:05 Acetaminophen 325 Mg Tab PO 12/08/21 22:37 650 mg Q4H PRN Administration Pain or Fever Amlodipine Besylate 7.5 mg 11/16/21 09:00 11/18/21 08:51 Amlodipine Besylate 5 Mg Tab PO 12/16/21 08:59 7.5 mg QAM AAKASH Administration Aspirin 81 mg 11/09/21 09:00 11/17/21 08:47 Aspirin 81 Mg Ectab PO 12/09/21 08:59 81 mg QAM AAKASH Administration Atorvastatin Calcium 20 mg 11/09/21 09:00 11/18/21 08:52 Atorvastatin 20 Mg Tab PO 12/09/21 08:59 20 mg QAM AAKASH Administration Carvedilol 6.25 mg 11/09/21 09:00 11/18/21 08:52 Carvedilol 6.25 Mg Tab PO 12/09/21 08:59 6.25 mg BID AAKASH Administration Clopidogrel Bisulfate 75 mg 11/09/21 09:00 11/17/21 08:47 Clopidogrel Bisulfate 75 Mg Tab PO 12/09/21 08:59 75 mg QAM AAKASH Administration Gabapentin 300 mg 11/13/21 21:00 11/17/21 22:09 Gabapentin 300 Mg Cap PO 12/13/21 20:59 300 mg HS AAKASH Administration Heparin Sodium (Porcine) 5,000 units 11/12/21 09:00 11/17/21 08:46 Heparin Sod 5,000 Unit/0.5 Ml Vial SQ 12/12/21 08:59 5,000 units Q12 AAKASH Administration Hydralazine HCl 10 mg 11/13/21 08:33 11/16/21 05:27 Hydralazine Hcl 20 Mg/Ml Vial IV 12/13/21 08:32 10 mg Q4 PRN Administration SBP>180 Ampicillin Sodium/Sulbactam 108 mls @ 216 mls/hr 11/11/21 11:00 11/17/21 23:28 Sodium 3,000 mg/ Sodium IV 11/20/21 23:29 Infused Chloride Q12H AAKASH Infusion Levothyroxine Sodium 66 mcg/ 3.3 mls @ 1.65 mls/min 11/15/21 09:00 11/18/21 08:59 Syringe IV 12/15/21 08:59 Not Given Q72H AAKASH Methylprednisolone 40 mg/ 0.64 mls @ 1.5 mls/min 11/16/21 18:45 11/17/21 18:03 Syringe IV 12/16/21 18:44 1.5 mls/min Q8H AAKASH Administration Pantoprazole Sodium 40 mg/ 100 mls @ 20 mls/hr 11/17/21 15:45 11/18/21 08:45 Dextrose IV 12/17/21 15:44 8 mg/hr Q5H AAKASH 20 mls/hr Administration 8 MG/HR Octreotide Acetate 500 mcg/ 105 mls @ 10.5 mls/hr 11/17/21 15:45 11/18/21 04:27 Sodium Chloride IV 12/17/21 15:44 50 mcg/hr .Q10H AAKASH 10.5 mls/hr Administration 50 MCG/HR Insulin Aspart 0 units 11/12/21 12:00 11/18/21 08:48 Insulin Aspart Per Unit SC 12/12/21 11:59 2 units Q4 AAKASH Administration Protocol Insulin Glargine 0 - 8 units 11/09/21 09:00 11/18/21 08:54 Insulin Glargine Solostar 100 Units/Ml 3 Ml Pen SC 12/09/21 08:59 12 units BID AAKASH Administration Protocol Ipratropium [place] 0.5 mg 11/14/21 19:00 11/18/21 07:27 Ipratropium [place] Neb Soln 0.02% 2.5 Ml Vial INH 12/14/21 18:59 0.5 mg Q6R AAKASH Administration Levalbuterol HCl 1.25 mg 11/14/21 19:00 11/18/21 07:27 Levalbuterol 1.25mg/0.5ml Neb INH 12/14/21 18:59 1.25 mg Q6R AAKASH Administration Levothyroxine Sodium 88 mcg 11/16/21 06:30 11/18/21 06:59 Levothyroxine Sodium 88 Mcg Tablet PO 12/16/21 06:29 88 mcg DAILYBB AAKASH Administration Umeclidinium/Vilanterol 1 puffs 11/09/21 09:00 11/18/21 08:53 Umeclidinium/Vilanterol 62.5/25mcg 7 Puffs/Inhaler INH 12/09/21 08:59 1 puffs DAILY AAKASH Administration Past Medical History Medical History (Updated 11/18/21 @ 10:22 by Aldair Crabtree MD) Abdominal pain Acute metabolic encephalopathy Anemia Aneurysm of infrarenal abdominal aorta Cirrhosis COPD (chronic obstructive pulmonary disease) DM II (diabetes mellitus, type II), controlled Emphysema Epigastric abdominal pain GI bleed HLD (hyperlipidemia) Hypertension Hypothyroidism PAD (peripheral artery disease) PAF (paroxysmal atrial fibrillation) Pneumonia Sepsis Shortness of breath Past Family History Family History Other Diabetes Hypertension Past Surgical History Surgical History History of appendectomy History of intravascular stent placement Reported Left subclavian, superior mesenteric artery, L iliac, L fempop bypass - Dr Andrade - [place] Social History Smoking Status: Unknown if ever smoked Hx Alcohol Use: No Hx Substance Use: No Physical Exam Vital Signs Last Vital Signs Temp 36.7 C 11/18/21 02:00 Pulse 56 L 11/18/21 07:27 Resp 23 11/18/21 07:27 BP 134/65 11/18/21 05:00 Pulse Ox 100 11/18/21 07:27 Testing Laboratory Results 11/18/21 08:10 11/18/21 06:02 PT 11.9 Seconds (9.0-12.0) 11/08/21 16:15 INR 1.2 (0.9-1.1) H 11/08/21 16:15 APTT 35.8 Seconds (21.0-31.0) H 11/08/21 16:15 Hemoglobin A1c 9.4 % (4.5-5.6) H 11/09/21 01:36 Urine Color Dark Yellow 11/08/21 16:00 Urine Appearance Cloudy (Clear) A 11/08/21 16:00 Urine pH 5.0 (4.5-7.5) 11/08/21 16:00 Ur Specific [place] 1.022 (1.000-1.030) 11/08/21 16:00 Urine Protein 3+ (Negative) H 11/08/21 16:00 Urine Glucose (UA) Negative (Negative) 11/08/21 16:00 Urine Ketones Trace (Negative) H 11/08/21 16:00 Urine Nitrite Negative (Negative) 11/08/21 16:00 Ur Leukocyte Esterase Trace (Negative) H 11/08/21 16:00 Urine WBC (Auto) 10-30 /hpf (0-5) H 11/08/21 16:00 Urine RBC (Auto) 0-4 /hpf (0-4) 11/08/21 16:00 U Hyaline Cast (Auto) 5-10 /lpf (0-5) H 11/08/21 16:00 U Epithel Cells (Auto) >30 /lpf (0-5) H 11/08/21 16:00 Urine Bacteria (Auto) 1+ (Negative) H 11/08/21 16:00 Blood Type B Positive 11/17/21 15:17 Antibody Screen NEGATIVE 11/17/21 15:17 11/15/21 13:58 Aerobic Blood Culture - Preliminary Blood No growth in Aerobic bottle after 48 hours. Anaerobic Blood Culture - Preliminary No growth in Anaerobic bottle after 48 hours. 11/15/21 12:58 Aerobic Blood Culture - Preliminary Blood No growth in Aerobic bottle after 48 hours. Anaerobic Blood Culture - Preliminary No growth in Anaerobic bottle after 48 hours. 11/15/21 Unknown Urine Culture - Final Urine,Indwelling Cath No growth - less than 1,000 colonies/mL. 11/08/21 14:50 Aerobic Blood Culture - Final Blood No growth in Aerobic bottle after 5 days. Anaerobic Blood Culture - Final No growth in Anaerobic bottle after 5 days. 11/08/21 14:50 Aerobic Blood Culture - Final Blood No growth in Aerobic bottle after 5 days. Anaerobic Blood Culture - Final No growth in Anaerobic bottle after 5 days. 11/08/21 Unknown Gram Stain - Final Sputum, Expectorated Sputum Culture - Final Streptococcus pneumoniae Staphylococcus aureus 11/08/21 16:00 Urine Culture - Final Urine,Straight Cath Enterococcus faecalis 11/18/21 11/18/21 11/18/21 07:27 04:24 00:25 POC Glucose 161 H 202 H 242 H Patient transfused 1 unit pRBC 11/17/21. 2 units available. Electrocardiogram Date: 11/08/21 DICTATED BY:Marquise Silva MD Test Reason : Blood Pressure : / mmHG Vent. Rate : 127 BPM Atrial Rate : 107 BPM P-R Int : 000 ms QRS Dur : 096 ms QT Int : 314 ms P-R-T Axes : 000 -28 078 degrees QTc Int : 456 ms Atrial fibrillation with rapid ventricular response Possible Septal infarct (cited on or before 02-JUL-2021) Abnormal ECG When compared with ECG of 08-NOV-2021 15:03, Atrial fibrillation has replaced Sinus rhythm Incomplete right bundle branch block is no longer Present Questionable change in initial forces of Septal leads Confirmed by Marquise Silva ([id number]) on 11/11/2021 9:46:57 PM Chest X-Ray Date: 11/08/21 XR chest 1V portable HISTORY: 86 years-old Female hypoxia acute shortness of breath COMPARISON: November 16, 2021 TECHNIQUE: Semierect AP view of the chest FINDINGS: Cardiac silhouette is enlarged. Small pleural effusions with mild bibasilar consolidation is similar to prior. Pulmonary vascular congestion. No pneumothorax or overt pulmonary edema. Arterial graft in the region of the left subclavian artery redemonstrated. Degenerative changes of the shoulders and spine. IMPRESSION: 1. Cardiomegaly with pulmonary vascular congestion. 2. Unchanged layering pleural effusions with bibasilar consolidation suggestive of atelectasis versus pneumonia. Echocardiogram Date: 11/11/21 LV is normal in size. Moderate LVH. EF 55-60% RV systolic function is normal. LA size is normal. RA size is normal. No .
[2021-11-18] MEDS ORDERED: FUROSEMIDE 40 MG/4 ML VIAL IV ONE (10:35)
--- NOTE | 2021-11-18 11:31 | Cardiology Progress Note ---
Date of Service November 18, 2021 Assessment & Plan (1) Preoperative cardiovascular examination: Plan: 86-year-old female with past medical history of multiple interventions for lower extremity peripheral arterial disease for which she is on chronic aspirin and clopidogrel. She has been hospitalized in the intensive care unit with previous findings of metabolic derangements, felt to have pneumonia, UTI, and had been receiving aspirin, clopidogrel, and subcutaneous heparin for DVT prophylaxis. She had been receiving corticosteroids. Outpatient medication regimen includes carvedilol 6.25 mg twice daily, likely for treatment of hypertension as well as known small esophageal varices. She has been receiving her carvedilol while hospitalized, most recent dose this morning at 8:52 AM. She had one episode of atrial fibrillation noted on 11/11/2021 in setting of acute systemic noncardiac illness, with spontaneous subsequent conversion to sinus rhythm. Hemoglobin which had been 12 on admission has trended down, with measurement of 7.1 yesterday, 9.5 today, she received a unit of packed red blood cells 11/18/2021, and of note, received previous transfusions in December 2020 in Mar, 2021. She is on a Protonix infusion. Telemetry reveals sinus bradycardia, for the most part the mid 40s. Blood pressure is stable, with multiple systolic blood pressure readings in the last 24 hours in the 120s to 130s, most recently 134/65. She is requiring significant oxygen requirement, pulse oximetry 100% on 15 L nasal cannula. The chest x-ray report describes small layering pleural effusions, her volume status appears relatively stable on exam and per my interpretation of the chest x-ray, I do not think she is in pulmonary edema present. I would recommend that the patient's heart rate is stable, and does not preclude proceeding to endoscopy. There have been multiple conversations previously documented in the chart with regards to support for her tenuous airway status, I believe this has already been addressed by anesthesia. I do not think transfer to a tertiary center would change the patient's options or plans, I agree with holding aspirin and clopidogrel, pending endoscopy. Agree with ongoing treatment with carvedilol with hold parameters for heart rate less than 60 and systolic blood pressure less than 100 mmHg, in an effort to prevent recurrent atrial arrhythmias. Repeat EKG performed today 11/18/2021 at 12:08 PM revealed sinus bradycardia at 50 bpm with first-degree AV block, MD interval 210 ms, compared to the previous tracing, sinus bradycardia has replaced atrial fibrillation with rapid ventricular response. Diffuse nonspecific T wave flattening noted. Chronic poor R wave progression noted, with no evidence of infarction on recent echocardiogram. EKG represents stable findings, anticipate patient is at low risk for issues with regards to her heart rate with endoscopy. Agree with plan as already documented by anesthesia with regards to support of her respiratory status. Admission and Anticipated Discharge Date Admission Date: November 08, 2021 Subjective Patient seen in cardiology reassessment per the request of Dr Lopez and Dr Armijo for cardiac risk stratification prior to proposed EGD. She was initially admitted on 11/08/2021 with sepsis, multifocal pneumonia, electrolyte disturbances. She had been seen in cardiology consultation on 11/11/[address] Patel having been observed to have an episode of atrial fibrillation with subsequent spontaneous conversion to sinus rhythm at baseline. She does not follow with our practice as an outpatient, and details with regards to her past medical history are limited. She has a history of peripheral arterial disease with multiple apparent lower extremity interventions for which she is chronically treated with aspirin and clopidogrel, and has a reported 3.9 cm abdominal aortic aneurysm. She has a history of hepatic cirrhosis due to [place]. Her outpatient medication regimen includes carvedilol 6.25 mg twice daily. Physical Exam Physical Exam: Temp Pulse Resp BP Pulse Ox 36.7 C 56 L 23 134/65 100 11/18/21 02:00 11/18/21 07:27 11/18/21 07:27 11/18/21 05:00 11/18/21 07:27 Constitutional: + ill appearing; no acute distress Respiratory: no cough Coarse breath sounds noted bilaterally at the bases Cardiovascular: Rate/Rhythm: regular rate and regular rhythm Heart Sounds: no murmur Extremities: no edema Gastrointestinal (Abdomen): normal bowel sounds, soft, nontender, no hepatosplenomegaly Neurologic: PERRL, EOMI, accommodation nl, no face palsy, no dysarthria Results & Data ([facility]) Vital Signs (Past 12 Hours) Vital Signs Temp Pulse Pulse Resp BP Pulse Ox 11/18/21 07:27 56 L 23 100 11/18/21 05:00 48 L 16 134/65 100 11/18/21 04:15 55 L 13 128/56 L 99 11/18/21 04:00 57 L 12 100 11/18/21 03:45 57 L 15 121/51 L 97 11/18/21 03:15 55 L 12 128/50 L 98 11/18/21 03:00 54 L 11 L 129/57 L 100 11/18/21 02:45 55 L 13 120/50 L 99 11/18/21 02:30 63 19 115/69 95 11/18/21 02:00 36.7 C 58 L 15 136/48 L 99 11/18/21 01:30 57 L 11 L 133/54 L 100 11/18/21 01:15 62 15 108/48 L 99 11/18/21 01:14 36.7 C 61 17 108/48 L 96 11/18/21 01:00 57 L 12 98 11/18/21 00:24 61 12 98 11/18/21 00:14 36.7 C 60 14 121/48 L 98 11/18/21 00:00 60 14 97 11/17/21 23:59 57 L 11/17/21 23:44 36.7 C 61 14 128/52 L 99 Diagnostic Findings Echocardiogram performed this admission 11/11/2021, LVEF 55 to 60%, mild aortic valve sclerosis without stenosis, mild MR. EKG performed today 11/18/2021, 12:08 PM, reviewed independently: Sinus bradycardia at 50 bpm, with first-degree AV block, MD interval 210 ms poor R wave progression noted in the precordial leads, chronic findings, compared to the previous tracing performed 11/10/2021, sinus rhythm has replaced atrial fibrillation with rapid ventricular spots, and the ventricular rate is decreased by 77 bpm. Nonspecific diffuse T wave flattening noted, stable EKG.
--- NOTE | 2021-11-18 11:34 | Gastroenterology Progress Note ---
Date of Service November 18, 2021 Assessment & Plan Admission and Anticipated Discharge Date Admission Date: November 08, 2021 Subjective Nurses report one large dark BM early this am. Her systolic BP has remained WNL, in the 120's over night. She received 1 U PRBC, with rise in hgb from 7.1 last night to 9.1 this am. Her BUN denis to 82 this am. Her uop remains vigorous, approx 50 cc/hr this am. Per nursing, she has had episodes of asymptomatic sinus vipul to the 30's; cardiology has been consulted. Her O2 sats have improved to 99-100 on 15 L NC. Review of notes show that [place] [facility] [place]; hospitalist this am states that transfer was refused due to lack of available beds [place] [facility] Hospitalist notes now indicate that pt would be willing to undergo EGD and intubation if indicated. When I ask her, she states that she had discussed her medical care with her children, and would now consider an endoscopy. Anesthesia saw her this morning, and noted that she had eaten a cookie and applesauce this morning. PE: Heart rate in the 40's. Afeb. Systolic BP 120's P ox 100 /15 L NC She is more comfortable than yesterday, able to speak more comfortably in short phrases and with less use of accessory muscles. CV: regular rate and rhythm; I am unable to appreciate JVP. Abd: soft NT; no obv ascites Extrem: mildly cool, 1+ radial pulses Labs Na 146, BUN 82, TB 1.3, AP 240, AST 252, ALT 114, ALbumin 2.7 A/P: GI bleed - I spoke to pt about r/b/i of endoscopy. Pt tells me that she would be willing to proceed with endoscopy, but wishes to wait for family before proceeding. I discussed with anesthesia and with ICU attg - her respiratory status remains tenuous, but improved. Anesthesia service and ICU service both anticipate the possibility that a wean off the vent, even after a short procedure, may be difficult. Anesthesia service is willing to consider EGD with deep sedation if pt meets NPO requirement; I also feel that it would be best if we could avoid intubating patient. For now, she is hemodynamically stable, with improved hgb -- will cont PPI and octreotide for now and plan for EGD tomorrow am. Elevated LFTs - DDX = Sludge/stones or DILI (augmentin?), congestive hepatopathy possible but seems less likely. Repeat LFT's, lipase this evening, repeat uls if elevated tomorrow. Consider switch from Augmentin - will d/w primary service, but defer to them. Results & Data ([facility]) Vital Signs (Past 12 Hours) Vital Signs Temp Pulse Pulse Resp BP Pulse Ox 11/18/21 07:27 56 L 23 100 11/18/21 05:00 48 L 16 134/65 100 11/18/21 04:15 55 L 13 128/56 L 99 11/18/21 04:00 57 L 12 100 11/18/21 03:45 57 L 15 121/51 L 97 11/18/21 03:15 55 L 12 128/50 L 98 11/18/21 03:00 54 L 11 L 129/57 L 100 11/18/21 02:45 55 L 13 120/50 L 99 11/18/21 02:30 63 19 115/69 95 11/18/21 02:00 36.7 C 58 L 15 136/48 L 99 11/18/21 01:30 57 L 11 L 133/54 L 100 11/18/21 01:15 62 15 108/48 L 99 11/18/21 01:14 36.7 C 61 17 108/48 L 96 11/18/21 01:00 57 L 12 98 11/18/21 00:24 61 12 98 11/18/21 00:14 36.7 C 60 14 121/48 L 98 11/18/21 00:00 60 14 97 11/17/21 23:59 57 L 11/17/21 23:44 36.7 C 61 14 128/52 L 99 11/17/21 23:29 36.5 C 13 105/51 L 98
[2021-11-18] MEDS: AMPICILLIN/SULBACTAM SOD 3,000 MG in 0.9 % SODIUM CHLORIDE 100 ML IV SCH ×2 (11:35→23:23)
--- NOTE | 2021-11-18 14:45 | Electrocardiogram Report ---
Test Reason : Blood Pressure : / mmHG Vent. 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 rate has decreased BY 77 BPM Confirmed by Aurelio Blood ([id number]) on 11/18/2021 2:45:04 PM Referred By: REFERRED SELF Confirmed By:Aurelio Blood
--- NOTE | 2021-11-18 17:14 | Hospitalist Progress Note ---
Date of Service November 18, 2021 Assessment & Plan (1) GI bleed: (2) Anemia: Plan: Patient had 3 episode of maroon-colored bowel movement today Hemoglobin dropped from 11 yesterday to 7.1 today GI was notified about the drop in hemoglobin and GI bleed Dr. Armijo discussed the case with daughter, patient and son about EGD Patient will need to get intubated due to respiratory status for the EGD and will remain intubating after the procedure as per anesthesiologist Patient does not want to get intubated for the procedure and pt decided not to proceed with the procedure Dr. Armijo explained to pt and family dennis hgb might continue to drop, ongoing bleeding, if endoscopy is not performed. We will continue PPI drip and octreotide Patient was started on Cipro per GI due to the history of cirrhosis Type and cross done and obtained consent from daughter/patient about blood transfusion We will transfuse 1 unit PRBC now and will place 2 unit on hold in case hemoglobin continued to drop We will continue monitor CBC every 6 hours 11/18/21 S/P 1 unit PRBC last night ( 2 unit was placed on hold Hgb 9.5 today Pt had one episode of dark stool today Pt change her mind again to get the EGD done at [facility] Case discussed with hospitalist at [facility] that was not able to accept her for transfer due to lack of bed available She now agreed to get the EGD done at [facility] Continue monitor H/H Continue PPI drip, octreotide and Cipro Will keep NPO (3) Transaminitis: Plan: LFT worsening with AST 252, ALT 114 and Alk 240 Will hold statin Continue monitor CMP (4) Thrombocytopenia: Plan: Platelet dropped to 104 today Possible related to the acute GI bleed, worsening liver enzymes, abx therapy Continue monitor cbc (5) Acute metabolic encephalopathy: Plan: 86yo F with a PMH of PAD s/p stent L subclavian, superior mesenteric artery, L iliac and fempop bypass, infrarenal AAA measuring 3.9 cm, HTN, HLD, CKD III, insulin dependent DM II, COPD, hypothyroidism, history of C. difficile in May 2021 and other medical problems who presents after unwitnessed fall with acute metabolic encephalopathy, sepsis and pneumonia. Initially resolved after sepsis resuscitation, however, she has become obtunded overnight. Multiple factors likely contributing with worsening hypoxia, hypernatremia, and ongoing infections-not an exhaustive list of contributing factors. CT head on admission showed no acute intracranial hemorrhage, no evidence of acute territorial infarction or other acute intracranial disease process. Clinically improved (6) Pneumonia: (7) Hypoxia: Plan: Possible related to pneumonia initially, and developed fluid overload after resuscitation CT chest on admission showed right lower lobe consolidative opacities concerning for pneumonia and/or aspiration. COVID-19 PCR negative Influenza A/B negative RSV negative Procalcitonin: 39 --> 13 Initially was started on vanc and Zosyn. Out of concerns for EARL, changed Zosyn to cefepime. Sputum culture growing strep as well as MSSA Speech was consulted and reported no issues wtih aspiration on her examination and she initially improved on abx. Then further hypoxia is possibly 2/2 fluid overload after resuscitation efforts Repeat chest x-ray today showed pulmonary vascular congestion. Unchanged layering pleural effusions with bibasilar consolidation suggestive of atelectasis versus pneumonia. Currently on 15 L oxygen supplement via oxygen mask Currently on Unasyn and Solu-Medrol Continue to hold the Solu-Medrol for now due to the GI bleed in a cirrhosis patient Lasix as needed if BP stable (8) Atrial fibrillation with rapid ventricular response: Plan: New onset atrial fibrillation with RVR overnight in setting of pulmonary illness and possible fluid overload after resuscitation from sepsis. Currently on normal sinus rhythm with rate stable Cardiology on board ECHO showed LV function is well-preserved and no significant valvular pathology. No additional recommendations at this time. Continue carvedilol 6.25 twice daily Bradycardia HR dropped btw 30 to 40 Asymptomatic Case discussed with cardiology that recommended to continue beta alejo with paramater Continue monitor (9) UTI (urinary tract infection): Plan: Urine culture grew Enterococcus faecalis Received IV Vanco (10) Sepsis: Plan: Resuscitated. Cont antibiotics. (11) Abdominal pain: Plan: Initially was resolved, however, appeared to withdraw from pain during exam this morning. She is altered and on BIPAP, actively trying to remove her mask and with mitts on. She is not a reliable historian at this time. During this admission, in the setting of abdominal pain with cirrhosis, hyperbilirubinemia and cholelithiasis she was also seen by gastroenterology and surgery who felt no further workup or treatments were warranted. Her elevated total bilirubin and tender abdomen was thought to be possibly secondary to infection or sepsis versus decompensated cirrhosis. As this has improved with treatment of her infection and it was more likely the former. Defer further workup to ICU team as needed. CT also found that endometrium is abnormally thickened for age which will be not emergently evaluated with a pelvic ultrasound and [employer] WILDLIFE MANAGER evaluation as outpatient. Currently denies abdominal pain (12) Hypertension: Plan: We will hold bp meds due to low hemoglobin from GI bleed Continue monitor BP (13) Fall: Plan: Patient remembers falling out of her bed -likely related to weakness in setting of metabolic encephalopathy which is now clearing. Min CK elevation expected. Likely improved after IVF resuscitation. CT head, cervical spine CT, chest CT, pelvic XR without evidence of acute trauma or fracture. Cont with Fall precautions, PT OT evaluation (14) Acute kidney injury superimposed on chronic kidney disease: Plan: Cr elevated at 1.36 (baseline ~ 0.9) in setting of dehydration and sepsis. Creatinine 1.8 today Nephrology on board Continue monitor BMP while getting IV Lasix as needed Nephrology was notify about the increase in creatinine (15) PAD (peripheral artery disease): Plan: chronic, stable. S/p stent L subclavian, superior mesenteric artery, L iliac and fempop bypass Follows with Dr. Andrade of vascular surgery in [place] Continue to hold aspirin, plavix, statin due to active GI bleed (16) Cirrhosis: Plan: Diagnosed in January 2021, [place], She is at risk for hypervolemia so we will be cautious with IV fluids. Possibly more hypervolemic now. Ammonia level was checked yesterday and was <10, so somnolence was not thought to be related to hepatic encephalopathy, however, this could be reassessed with declined mental status today. (17) DM II (diabetes mellitus, type II), controlled: Plan: A1c 9.4 reflecting poor overall control. Pharmacy on board for glycemic management Continue monitor blood sugar Continue Lantus and insulin sliding scale (18) COPD (chronic obstructive pulmonary disease): Plan: chronic, stable-no wheezing. Does not require O2 at baseline. Former smoker. Continue Anoro Ellipda, Albuterol inh PRN (19) Hypothyroidism: Plan: Continue levothyroxine per home regimen. (20) Thickened endometrium: Plan: Esophageal varices with a small volume of abdominal pelvic ascites and sple nomegaly indicating portal hypertension is present. There is also wall thickening of the right colon with mild pericolic infiltration which could present a nonspecific colitis. She continues on antibiotics and would appreciate gastroenterology thoughts on this. Endometrium is abnormally thickened for age which will be not emergently evaluated with a pelvic ultrasound and FORE[employer] WILDLIFE MANAGER evaluation as outpatient. (21) Aneurysm of infrarenal abdominal aorta: Plan: incidental finding on CT scan. Follow-up as outpatient for monitoring. (22) DVT prophylaxis: Plan: DVT Ppx: Heparin on hold due to active GI bleed Code status: DNR Dispo Continue to monitor closely Admission and Anticipated Discharge Date Admission Date: November 08, 2021 Subjective Pt was seen and examined for follow up of GI bleed Lying in bed with no acute distress distress Pt said that she wants to get the EGD done but she would like to go to [facility] to get it since she had it done there previously I explained to her that she might still need to get intubated even if EGD performs in [facility] I called daughter to discussed about the case and she asked me to call her br other Sherry ( she is ok with any decision sherry takes) I spoke to Sherry that agreed with pt decision to arrange to transfer to [facility] to get the EGD I spoke to the hospital physician in [facility] about the case, unfortunately there is no bed available and transfer was denied I spoke to our gastro team to inform them pt would like to get the EGD done in [place], but transfer denied Pt agreed to get the EGD done at [facility] with our Gastro, but unfortunately pt ate cookies this morning that was brought by family when she supposed to be NPO Pt said that her breathing seems to get better today Denies any chest pain, palpitation, dizziness and fever Review of Systems Review of Systems: All systems reviewed & are unremarkable except as noted in Subjective Physical Exam Physical Exam: General-GI bleed with mild respiratory distress Head- atraumatic Eyes- PERRL, EOMI, ENT- oropharynx clear Neck- supple, no JVD Lungs- +diminished breath sounds Heart- regular rhythm; no murmur Abdomen- normal bowel sounds,nontender Extremities- no calf tenderness Neuro- alert, awake and oriented, PERRL, no facial palsy; no dysarthria Skin- warm & dry Results & Data Results & Data ([facility]) Vital Signs (Past 12 Hours) Vital Signs Pulse Pulse Resp BP Pulse Ox 11/18/21 16:00 50 L 11/18/21 14:00 50 L 12 127/40 L 95 11/18/21 13:31 37 L 12 97 11/18/21 13:00 40 L 12 112/42 L 96 11/18/21 12:00 40 L 14 122/44 L 99 11/18/21 11:00 42 L 15 106/40 L 99 11/18/21 10:00 56 L 13 129/60 98 11/18/21 09:00 53 L 16 134/70 98 11/18/21 08:00 53 L 13 120/53 L 96 11/18/21 07:27 56 L 23 100 11/18/21 07:00 54 L 16 120/56 L 97 (1) Anemia Anemia type: unspecified type Qualified Code(s): D64.9 - Anemia, unspecified (2) Pneumonia Laterality: right Lung location: unspecified part of lung Pneumonia type: due to unspecified organism Qualified Code(s): J18.9 - Pneumonia, unspecified organism
[2021-11-18] MEDS: GABAPENTIN 300 MG CAP PO SCH (20:37)
[2021-11-18] MEDS ORDERED: INSULIN GLARGINE SOLOSTAR 100 UNITS/ML 3 ML PEN SC ONE (21:00)
[2021-11-19] MEDS: IPRATROPIUM BROMIDE NEB SOLN 0.02% 2.5 ML VIAL INH SCH ×4 (02:04→20:16)
[2021-11-19] MEDS: LEVALBUTEROL 1.25MG/0.5ML NEB INH SCH ×4 (02:04→20:16)
[2021-11-19] MEDS: INSULIN ASPART PER UNIT SC SCH ×6 (04:10→23:45)
[2021-11-19] MEDS: PANTOprazole 40 MG in DEXTROSE 5% 100 ML IV SCH ×3 (04:10→13:05)
[2021-11-19] MEDS: LEVOTHYROXINE SODIUM 88 MCG TABLET PO SCH (04:11)
[2021-11-19 05:18] LABS: Hematocrit (blood only) 27.8 % (37-47); Hemoglobin 8.9 g/dL (12.0-16.0); Mean Corpuscular Hemoglobin 28.1 pg (25-34); Mean Corpuscular Volume 87.7 fL (80-100); RDW Standard Deviation 64.2 fL (36.4-46.3); Red Blood Count 3.17 M/uL (4.2-5.4); White Blood Count 9.24 K/uL (4.8-10.8)
[2021-11-19 05:37] LABS: Albumin Globulin Ratio 0.9 (0.9-2); Albumin Level 2.3 gm/dl (3.4-5.0); BUN Creatinine Ratio 39.6 (10-20); Bilirubin,Total 1.1 mg/dl (0.2-1.0); Calcium 7.3 mg/dl (8.5-10.1); Creatinine Clr Calc Pharmacy 17.1 ml/min; Est GFR (African American) 25.4 ml/min; Est GFR (Non-African American) 21.9 ml/min; Globulin 2.7 gm/dl (2.5-4.0); Potassium 4.2 mmol/L (3.5-5.1)
[2021-11-19 05:50] LABS: Platelet Count 84 K/uL (130-400)
[2021-11-19 05:51] LABS: Anisocytosis Present; Echinocytes 1+; Immature Granulocytes # (auto) 0.06 K/uL (0.00-0.02); Immature Granulocytes % (auto) 0.6 %; Monocytes # (auto) 0.59 K/uL (0.11-0.59); Monocytes % (auto) 6.4 %; Neutrophils # (auto) 7.39 K/uL (1.4-6.5); Platelet Estimate Decreased (Normal)
[2021-11-19] MEDS: OCTREOTIDE ACETATE 500 MCG in 0.9 % SODIUM CHLORIDE 100 ML IV SCH (09:25)
[2021-11-19] MEDS: INSULIN GLARGINE SOLOSTAR 100 UNITS/ML 3 ML PEN SC SCH ×3 (09:26→21:32)
[2021-11-19] MEDS: UMECLIDINIUM/VILANTEROL 62.5/25MCG 7 PUFFS/INHALER INH SCH (09:27)
[2021-11-19] MEDS: amLODIPine BESYLATE 5 MG TAB PO SCH (09:28)
--- NOTE | 2021-11-19 10:41 | Gastroenterology Progress Note ---
Date of Service November 19, 2021 Assessment & Plan (1) Cholelithiasis: Plan: 86 year old female w/ history of HTN, DM, CKD, COPD, cirrhosis admitted w/ metabolic encephalopathy, pneumonia EARL and fall. With melena, Anemia. Plan is for EGD today by Dr. Armijo. For now, Cont Octreotide drip, Pantoprazole drip, Zosyn. Hold ASA, Plavix, Heparin. Keep NPO. Further recommendations to follow EGD. (2) Cirrhosis: (3) Total bilirubin, elevated: Plan: Will follow along. Admission and Anticipated Discharge Date Admission Date: November 08, 2021 Supervising Physician Co-Signing Physician Notes Attg add: I interviewed and examined pt, reviewed chart and labs. No further gross bleeding, hgb stable. BUN remains increased. Will plan EGD today. Subjective 86 yr old female. Hospitalized since 11/08/21 for pneumonia, UTI, metabolic encephalopathy. Developed melena, anemia, (most recent BM small black, loose this morning around 8AM) while maintained on aspirin and clopidogrel (PAD). Carries hx of cirrhosis with grade I EV, PHG, most recent EGD in Dec 2020. Today: Hb 8.9 (received 1 U of RBCs, yesterday's Hb 9.5); Hct today 27.8, BUN 80. Awake, alert. Would like to go forward with EGD. Afebrile, HR 40 (range 40 - 60), Resp 22, O2 by NC at 11L/min . In sinus rhythm. Review of Systems Review of Systems: ROS: Gen: + weakness, No fevers, denies weight loss Eyes: No eye redness, or pain, no recent vision changes Resp: No SOB, no cough Cardio: No palpitations/irregular beats, no chest pain GI: As per HPI, otherwise (-) : Denies pain on urination Skin: No jaundice, itching or new rashes Ext: no edema Physical Exam Constitutional: well developed, + ill appearing, + thin and cooperative Eyes: PERRL, conjunctivae normal, anicteric sclerae ENMT: external ear and nose normal, oropharynx normal Neck: trachea midline, no thyromegaly Respiratory: normal respiratory effort (on 6L O2 by NC); no respiratory distress, no labored breathing, does not use accessory muscles and no cough Cardiovascular: RRR, no murmur, no edema Gastrointestinal (Abdomen): Inspection/Auscultation: abdomen normal to inspection and + hypoactive bowel sounds; abdomen not distended Percussion/Palpation: abdomen nontender, no guarding, no hepatosplenomegaly and no ascites Skin: normal turgor; no jaundice Neurologic: awake Psychiatric: Orientation: alert and cooperative Lymphatic: no cervical or axillary lymphadenopathy Results & Data ([facility]) Vital Signs (Past 12 Hours) Vital Signs Temp Pulse Pulse Resp BP Pulse Ox 11/19/21 08:17 36.4 C L 40 L 22 104/31 L 93 11/19/21 08:00 36 L 11/19/21 07:24 37 L 20 95 11/19/21 04:00 35.5 C L 47 L 14 112/56 L 96 11/19/21 02:04 20 90 11/19/21 00:00 36 C L 44 L 12 134/45 L 91 Laboratory Results WBC 9.2, Hb 8.9, Hct 27.8, Plts 84, Na 140, K 4.2, Cl 107, BUN 25, Cr 2.2 T Bili 1.1, AST 143, ALT 89, ALk Phos 171 Diagnostic Findings CXR 11/17/21: 1. Cardiomegaly with pulmonary vascular congestion. 2. Unchanged layering pleural effusions with bibasilar consolidation suggestive of atelectasis versus pneumonia. CTAP w IV 11/09/21: 1. Streak and motion compromised examination. 2. There is dense airspace consolidation throughout the right lower lobe typical for pneumonia. 3. The gallbladder is distended and there are calcified gallstones in the region of the gallbladder neck. There is mild pericholecystic infiltration. Correlate with clinical and laboratory findings for evidence of acute cholecystitis. Right upper quadrant ultrasound could be considered for further assessment. 4. There is an acute to subacute inferior endplate compression fracture of T10. 5. The liver is cirrhotic in morphology and heterogeneous in attenuation. 6. Esophageal varices, a small volume of abdominopelvic ascites, and splenomegaly indicate portal hypertension. 7. There is wall thickening of the right colon with mild pericolonic infiltration. This could represent portal colopathy versus a nonspecific colitis. Clinical correlation will be required. 8. There is a 3.6 x 3.8 cm infrarenal abdominal aortic aneurysm. 9. The endometrium is abnormally thickened for age measuring up to 15 mm. This is not well evaluated by CT. Nonemergent pelvic ultrasound and gynecology evaluation is recommended for further assessment.
--- NOTE | 2021-11-19 10:48 | Cardiology Progress Note ---
Date of Service November 19, 2021 Assessment & Plan (1) Preoperative cardiovascular examination: (2) Sinus bradycardia: Plan: 86-year-old female with past medical history of multiple interventions for lower extremity peripheral arterial disease for which she is on chronic aspirin and clopidogrel. She has been hospitalized in the intensive care unit with previous findings of metabolic derangements, felt to have pneumonia, UTI, and had been receiving aspirin, clopidogrel, and subcutaneous heparin for DVT prophylaxis. She had been receiving corticosteroids. Outpatient medication regimen includes carvedilol 6.25 mg twice daily, likely for treatment of hypertension as well as known small esophageal varices. She had one episode of atrial fibrillation noted on 11/11/2021 in setting of acute systemic noncardiac illness, with spontaneous subsequent conversion to sinus rhythm. Hemoglobin which had been 12 on admission has trended down, with measurement of 7.1 yesterday, 9.5 today, she received a unit of packed red blood cells 11/18/2021, and of note, received previous transfusions in December 2020 in Mar, 2021. She is on a Protonix infusion. Carvedilol held this morning due to parameters for heart rate less than 60. We will reduce dose of carvedilol to 3.125 mg twice daily, next dose tonight 2100, will hold for heart rate less than 60, systolic blood pressure less than 100. Patient stable for endoscopy from cardiology perspective. Anesthesia co nsidering ventilator support for airway to allow procedure which I think is reasonable. Dr Niels dao, 11/20/21. Admission and Anticipated Discharge Date Admission Date: November 08, 2021 Subjective Patient seen in follow-up. She is alert and conversant. Denies any chest discomfort. Still requiring high oxygen requirements, 11 L/min, nasal cannula. Nursing describes maroon and yue bowel movements. Telemetry reveals sinus bradycardia for the most part in the 40s while awake, down to the 30s while sleeping. No pauses or high-grade AV block noted. Blood pressure relatively stable. Physical Exam Physical Exam: Temp Pulse Resp BP Pulse Ox 36.4 C L 40 L 22 104/31 L 93 11/19/21 08:17 11/19/21 08:17 11/19/21 08:17 11/19/21 08:17 11/19/21 08:17 Constitutional: + ill appearing (Chronically ill in appearance, no acute distress) Respiratory: Mild coarse breath sounds in the bases otherwise clear Cardiovascular: Rate/Rhythm: regular rhythm and + bradycardic Heart Sounds: no murmur Gastrointestinal (Abdomen): normal bowel sounds, soft, nontender, no hepatosplenomegaly Neurologic: PERRL, EOMI, accommodation nl, no face palsy, no dysarthria Results & Data ([facility]) Vital Signs (Past 12 Hours) Vital Signs Temp Pulse Pulse Resp BP Pulse Ox 11/19/21 08:17 36.4 C L 40 L 22 104/31 L 93 11/19/21 08:00 36 L 11/19/21 07:24 37 L 20 95 11/19/21 04:00 35.5 C L 47 L 14 112/56 L 96 11/19/21 02:04 20 90 11/19/21 00:00 36 C L 44 L 12 134/45 L 91 Laboratory Results Cardiac Enzymes 11/19/21 Range/Units 04:43 AST 143 H (13-39) U/L CBC 11/19/21 Range/Units 04:43 WBC 9.24 (4.8-10.8) K/uL RBC 3.17 L (4.2-5.4) M/uL Hgb 8.9 L (12.0-16.0) g/dL Hct 27.8 L (37-47) % Plt Count 84 L (130-400) K/uL Neut # (Auto) 7.39 H (1.4-6.5) K/uL Lymph # (Auto) 1.20 (1.2-3.4) K/uL [place] # (Auto) 0.59 (0.11-0.59) K/uL Eos # (Auto) 0.00 (0-0.5) K/uL Baso # (Auto) 0.00 (0-0.2) K/uL Comprehensive Metabolic Panel 11/19/21 Range/Units 04:43 Sodium 140 (136-145) mmol/L Potassium 4.2 (3.5-5.1) mmol/L Chloride 107 (98-107) mmol/L Carbon Dioxide 25 (21-32) mmol/L BUN 80 H (6-23) mg/dl Creatinine 2.02 H (0.6-1.2) mg/dl Glucose 109 H (70-99) mg/dl Calcium 7.3 L (8.5-10.1) mg/dl AST 143 H (13-39) U/L ALT 89 H (7-52) U/L Alkaline Phosphatase 171 H (34-104) U/L Total Protein 5.0 L D (6.0-8.3) gm/dl Albumin 2.3 L (3.4-5.0) gm/dl Intake and Output 11/18/21 11/19/21 11/19/21 22:59 06:59 14:59 Intake Total 220 / 1017.626 398.534 / 1017.626 Output Total 451 / 954 203 / 954 Balance -231 / 63.626 195.534 / 63.626 Intake: IV 100 / 897.626 398.534 / 897.626 Ampicillin/Sulbactam Sod 3,000 108 / 216 mg In 0.9 % Sodium Chloride 100 ml @ 216 mls/hr IV Q12H AAKASH Rx #:[id number] Octreotide Acetate 500 mcg In 0 102.2 / 198.625 105 / 105 .9 % Sodium Chloride 100 ml @ 50 MCG/HR 10.5 mls/hr IV .Q10H AAKASH Rx#:[id number] PANTOprazole 40 mg In Dextrose 100 / 483.001 188.334 / 483.001 100 / 100 5% 100 ml @ 8 MG/HR 20 mls/hr IV Q5H AAKASH Rx#:[id number] Oral 120 / 120 0 / 120 Output: Urine Amount (Catheter) 450 / 950 200 / 950 Garza/Indwelling 450 / 950 200 / 950 # Bowel Movements 3 Other: Weight 65 kg 68.9 kg Weight Measurement Method Built in [facility]
--- NOTE | 2021-11-19 10:48 | Nephrology Progress Note ---
Date of Service November 19, 2021 Assessment & Plan (1) Acute kidney injury superimposed on chronic kidney disease: Plan: Acute kidney injury on CKD likely due to ischemic ATN in setting of hypotension, GI bleed and bradycardia. Creatinine is uptrending to two. -Avoid hypotension. I have stopped amlodipine. Have reduced Coreg to 3.125 mg twice daily. Patient will likely need pressors particular for the EGD. We unable to give IV fluids due to pulmonary edema -Daily BMP -Avoid nephrotoxin -Monitor input output -Okay to continue Lasix Admission and Anticipated Discharge Date Admission Date: November 08, 2021 Subjective 86 yr old female. Hospitalized since 11/08/21 for pneumonia, UTI, metabolic encephalopathy. Developed melena, anemia, and planned for EGD this afternoon. She denies shortness of breath but remains on oxygen nasal cannula. Blood pressure is low. She received amlodipine this morning. She is also bradycardic. She complains of diarrhea and melena stools Review of Systems Review of Systems: All other systems were reviewed and negative except as noted in HPI Physical Exam Physical Exam: General exam: Appears comfortable, no acute distress.On oxygen nasal cannula HEENT: Pupils are equal and reactive to light Neck: No JVD, neck is supple trachea is midline Respiratory system: Crackles bilaterally. Gastrointestinal: Abdomen is soft, non distended, non tender, bowel sounds are present CVS: Regular rate and rhythm. No murmurs, rubs or gallops Musculoskeletal: No joint or muscle tenderness Extremities: Non tender, no edema, peripheral pulses are present Neuro: Oriented, no tremors, no focal neurological deficits Skin: No rashes Results & Data ([facility]) Vital Signs (Past 12 Hours) Vital Signs Temp Pulse Pulse Resp BP Pulse Ox 11/19/21 08:17 36.4 C L 40 L 22 104/31 L 93 11/19/21 08:00 36 L 11/19/21 07:24 37 L 20 95 11/19/21 04:00 35.5 C L 47 L 14 112/56 L 96 11/19/21 02:04 20 90 11/19/21 00:00 36 C L 44 L 12 134/45 L 91 Laboratory Results 11/19/21 04:43 11/19/21 11/19/21 04:43 04:43 WBC 9.24 RBC 3.17 L MCV 87.7 MCH 28.1 MCHC 32.0 RDW Std Deviation 64.2 H RDW Coeff of Daniela 20.0 H Plt Count 84 L Albumin 2.3 L
--- NOTE | 2021-11-19 11:40 | Hospitalist Progress Note ---
Date of Service November 19, 2021 Assessment & Plan (1) GI bleed: (2) Anemia: Plan: Patient had 3 episode of maroon-colored bowel movement today Hemoglobin dropped from 11 yesterday to 7.1 today GI was notified about the drop in hemoglobin and GI bleed Dr. Armijo discussed the case with daughter, patient and son about EGD Patient will need to get intubated due to respiratory status for the EGD and will remain intubating after the procedure as per anesthesiologist Patient does not want to get intubated for the procedure and pt decided not to proceed with the procedure Dr. Armijo explained to pt and family dennis hgb might continue to drop, ongoing bleeding, if endoscopy is not performed. We will continue PPI drip and octreotide Patient was started on Cipro per GI due to the history of cirrhosis Type and cross done and obtained consent from daughter/patient about blood transfusion We will transfuse 1 unit PRBC now and will place 2 unit on hold in case hemoglobin continued to drop We will continue monitor CBC every 6 hours 11/19/21 S/P 1 unit PRBC last night ( 2 unit was placed on hold Hgb 8.9 today Case discussed with hospitalist Dr. Boland at [facility] that was not able to accept her for transfer due to lack of bed available Plan to get EGD done this morning Continue monitor H/H Continue PPI drip, octreotide and Cipro Keep NPO for now for the EGD Ok from cardiology standpoint to proceed with the EGD (3) Transaminitis: Plan: LFT worsening with AST 252, ALT 114 and Alk 240 Liver enzymes trending with AST 143 and ALT 89 and Alk 171 Continue to hold statin Continue monitor CMP (4) Thrombocytopenia: Plan: Platelet dropped to 84 today Possible related to the acute GI bleed, worsening liver enzymes, abx therapy Continue monitor cbc (5) Acute metabolic encephalopathy: Plan: 86yo F with a PMH of PAD s/p stent L subclavian, superior mesenteric artery, L iliac and fempop bypass, infrarenal AAA measuring 3.9 cm, HTN, HLD, CKD III, insulin dependent DM II, COPD, hypothyroidism, history of C. difficile in May 2021 and other medical problems who presents after unwitnessed fall with acute metabolic encephalopathy, sepsis and pneumonia. Initially resolved after sepsis resuscitation, however, she has become obtunded overnight. Multiple factors likely contributing with worsening hypoxia, hypernatremia, and ongoing infections-not an exhaustive list of contributing factors. CT head on admission showed no acute intracranial hemorrhage, no evidence of acute territorial infarction or other acute intracranial disease process. resolved (6) Pneumonia: (7) Hypoxia: Plan: Possible related to pneumonia initially, and developed fluid overload after resuscitation CT chest on admission showed right lower lobe consolidative opacities concerning for pneumonia and/or aspiration. COVID-19 PCR negative Influenza A/B negative RSV negative Procalcitonin: 39 --> 13 Initially was started on vanc and Zosyn. Out of concerns for EARL, changed Zosyn to cefepime. Sputum culture growing strep as well as MSSA Speech was consulted and reported no issues wtih aspiration on her examination and she initially improved on abx. Then further hypoxia is possibly 2/2 fluid overload after resuscitation efforts Repeat chest x-ray today showed pulmonary vascular congestion. Unchanged layering pleural effusions with bibasilar consolidation suggestive of atelectasis versus pneumonia. Currently on 15 L oxygen supplement via oxygen mask Currently on Unasyn, will complete course today Continue to hold the Solu-Medrol for now due to the GI bleed in a cirrhosis patient Lasix as needed if BP stable (8) Atrial fibrillation with rapid ventricular response: Plan: New onset atrial fibrillation with RVR overnight in setting of pulmonary illness and possible fluid overload after resuscitation from sepsis. Currently on normal sinus rhythm with rate stable Cardiology on board ECHO showed LV function is well-preserved and no significant valvular pathology. No additional recommendations at this time. carvedilol decreased to 3.125 mg BID Bradycardia HR dropped btw 30 to 40 Asymptomatic Carvedilol decreased to 3.125 mg Case discussed with cardiology that recommended to continue beta alejo with parameter Continue monitor (9) UTI (urinary tract infection): Plan: Urine culture grew Enterococcus faecalis Received IV Vanco (10) Sepsis: Plan: Resuscitated. Cont antibiotics. (11) Abdominal pain: Plan: Initially was resolved, however, appeared to withdraw from pain during exam this morning. She is altered and on BIPAP, actively trying to remove her mask and with mitts on. She is not a reliable historian at this time. During this admission, in the setting of abdominal pain with cirrhosis, hyperbilirubinemia and cholelithiasis she was also seen by gastroenterology and surgery who felt no further workup or treatments were warranted. Her elevated total bilirubin and tender abdomen was thought to be possibly secondary to infection or sepsis versus decompensated cirrhosis. As this has improved with treatment of her infection and it was more likely the former. Defer further workup to ICU team as needed. CT also found that endometrium is abnormally thickened for age which will be not emergently evaluated with a pelvic ultrasound and OUTBOARD TECHNICIAN evaluation as outpatient. Currently denies abdominal pain (12) Hypertension: Plan: We will hold bp meds due to low hemoglobin from GI bleed Amlodipine d/c continue monitor BP (13) Fall: Plan: Patient remembers falling out of her bed -likely related to weakness in setting of metabolic encephalopathy which is now clearing. Min CK elevation expected. Likely improved after IVF resuscitation. CT head, cervical spine CT, chest CT, pelvic XR without evidence of acute trauma or fracture. Cont with Fall precautions, PT OT evaluation (14) Acute kidney injury superimposed on chronic kidney disease: Plan: Cr elevated at 1.36 (baseline ~ 0.9) in setting of dehydration and sepsis. Creatinine 2.02 today Nephrology on board Continue monitor BMP while getting IV Lasix as needed Nephrology on board Continue monitor BMP (15) PAD (peripheral artery disease): Plan: chronic, stable. S/p stent L subclavian, superior mesenteric artery, L iliac and fempop bypass Follows with Dr. Andrade of vascular surgery in [place] Continue to hold aspirin, plavix, statin due to active GI bleed (16) Cirrhosis: Plan: Diagnosed in January 2021, [place], She is at risk for hypervolemia so we will be cautious with IV fluids. Possibly more hypervolemic now. Ammonia level was checked yesterday and was <10, so somnolence was not thought to be related to hepatic encephalopathy, however, this could be reassessed with declined mental status today. (17) DM II (diabetes mellitus, type II), controlled: Plan: A1c 9.4 reflecting poor overall control. Pharmacy on board for glycemic management Continue monitor blood sugar Continue Lantus and insulin sliding scale (18) COPD (chronic obstructive pulmonary disease): Plan: chronic, stable-no wheezing. Does not require O2 at baseline. Former smoker. Continue Anoro Ellipda, Albuterol inh PRN (19) Hypothyroidism: Plan: Continue levothyroxine per home regimen. (20) Thickened endometrium: Plan: Esophageal varices with a small volume of abdominal pelvic ascites and splenomegaly indicating portal hypertension is present. There is also wall thickening of the right colon with mild pericolic infiltration which could present a nonspecific colitis. She continues on antibiotics and would appreciate gastroenterology thoughts on this. Endometrium is abnormally thickened for age which will be not emergently evaluated with a pelvic ultrasound and OUTBOARD TECHNICIAN evaluation as outpatient. (21) Aneurysm of infrarenal abdominal aorta: Plan: incidental finding on CT scan. Follow-up as outpatient for monitoring. (22) DVT prophylaxis: Plan: DVT Ppx: Heparin on hold due to active GI bleed Code status: DNR Dispo Continue to monitor closely Admission and Anticipated Discharge Date Admission Date: November 08, 2021 Subjective Pt was seen and examined for follow up of anemia and SOB Lying in bed with no acute distress resting She said that she is thirsty and would like to drink water She is NPO and and scheduled for EGD today Denies any chest pain, palpitation, dizziness and SOB Review of Systems Review of Systems: All systems reviewed & are unremarkable except as noted in Subjective Physical Exam Physical Exam: General-No acute distress Head- atraumatic Eyes- PERRL, EOMI, ENT- oropharynx clear Neck- supple, no JVD Lungs- +diminished breath sounds Heart- regular rhythm; no murmur Abdomen- normal bowel sounds,nontender Extremities- no calf tenderness Neuro- alert, awake and oriented, PERRL, no facial palsy; no dysarthria Skin- warm & dry Results & Data Results & Data ([facility]) Vital Signs (Past 12 Hours) Vital Signs Temp Pulse Pulse Resp BP Pulse Ox 11/19/21 10:47 41 L 12 100/43 L 95 11/19/21 08:17 36.4 C L 40 L 22 104/31 L 93 11/19/21 08:00 36 L 11/19/21 07:24 37 L 20 95 11/19/21 04:00 35.5 C L 47 L 14 112/56 L 96 11/19/21 02:04 20 90 11/19/21 00:00 36 C L 44 L 12 134/45 L 91 (1) Anemia Anemia type: unspecified type Qualified Code(s): D64.9 - Anemia, unspecified (2) Pneumonia Laterality: right Lung location: unspecified part of lung Pneumonia type: due to unspecified organism Qualified Code(s): J18.9 - Pneumonia, unspecified organism
[2021-11-19] MEDS: AMPICILLIN/SULBACTAM SOD 3,000 MG in 0.9 % SODIUM CHLORIDE 100 ML IV SCH ×2 (12:23→23:36)
--- NOTE | 2021-11-19 13:53 | Pharmacy Report ---
Pharmacy Glycemic Short Note 2 - Date of Service November 19, 2021 - Glycemic Short BSG Results (Last 24 hours): 11/18/21 11/18/21 11/18/21 16:01 19:58 23:46 Glucose POC Glucose 146 H 219 H 162 H 11/19/21 11/19/21 11/19/21 04:08 04:43 07:35 Glucose 109 H POC Glucose 125 H 97 11/19/21 12:27 Glucose POC Glucose 105 H OUTPATIENT ANTIDIABETIC REGIMEN: * Tresiba 15 units Q AM * Sitagliptin 100mg PO daily * A1c = 9.4% 11/09/21 ASSESSMENT: 11/19: * Patient received 19 units of lantus yesterday, fasting 97 mg/dL, lantus this AM held per scale and patient is NPO for procedure. Will keep same scale for PM. * Midday BSG 105 mg/dL. * Will continue novolog protocol for now 11/15 * Patient well controlled over the past 24 hours, receiving only 5 units of insulin total * Patient's PO intake appears to be minimal. * Will loosen lantus scale and continue with novolog protocol for now 11/12 * Type 2 diabetic admitted for sepsis secondary to multifocal pneumonia, UTI * Patient has been transferred to ICU * Nephrology has ordered dextrose containing IVFs (D5W + 50mEq Bicarb + 40mEq K Tom) to run at 125cc/hr for metabolic acidosis, hypernatremia. * BSGs had been well controlled until yesterday afternoon, suspect deterioration in control was secondary to dextrose provision in IVs used to provide free water. * Plan to continue with scaled Lantus dosing BID in current dose as she has re quired little basal insulin this admission due to poor PO intake * Plan to adjust Novolog dosing to Q 4 hrs, provide a scheduled dose of Novolog while in goal range on dextrose containing fluids to help cover the 25gm carbs provided every 4 hours. This scale can be converted back to traditional CF/CR dosing when dextrose containing IVFs d/c'd or rate reduced PLAN FOR INPATIENT GLYCEMIC CONTROL: * Hold outpatient oral diabetes medications (sitagliptin) * Basal insulin * Lantus 0-8 units SQ BID per scale * Bolus insulin * NovoLog per scale Q 4 hrs while on current dextrose containing IVFs, please use carb ratio indicated as well: PLAN FOR DISCHARGE: * to be determined
[2021-11-19] MEDS ORDERED: PROPOFOL IV EMULSION 10 MG/ML 20 ML VIAL IV ONE (16:10)
[2021-11-19] MEDS ORDERED: KETAMINE 50 MG/5 ML SYRINGE ONE (16:10)
--- NOTE | 2021-11-19 16:10 | History & Physical Bridge Note ---
Date of Service November 19, 2021 History & Physical Bridge Note I have examined the patient, reviewed the History & Physical and in the interval since the performance of the History & Physical I have noted the following changes of clinical significance: no changes noted
[2021-11-19] MEDS ORDERED: LIDOCAINE 2% 2 ML VIAL/AMP(20MG/ML) INFIL ONE (16:11)
--- NOTE | 2021-11-19 17:04 | GI REPORT ---
Patient Name: Sharifa Jenkins Procedure Date: 11/19/2021 3:57 PM Date of : 1935 Admit Type: Inpatient Age: 86 Gender: Female Attending MD: Sury Armijo MD Procedure: Upper GI endoscopy Providers: Sury Armijo MD Referring MD: HANY SAGE Indications: Hematochezia Medicines: See the Anesthesia note for documentation of the administered medications Complications: No immediate complications. Estimated Blood Loss: Estimated blood loss: none. Procedure: Pre-Anesthesia Assessment: - ASA Grade Assessment: IV - A patient with severe systemic disease that is a constant threat to life. After obtaining informed consent, the endoscope was passed under direct vision. Throughout the procedure, the patient's blood pressure, pulse, and oxygen saturations were monitored continuously. The Endoscope was introduced through the mouth, and advanced to the fourth part of duodenum. The upper GI endoscopy was accomplished without difficulty. The patient tolerated the procedure well. Findings: The Z-line was found 30 cm from the incisors. Grade I varices were found in the lower third of the esophagus. No red casimiro signs were present. Mild portal hypertensive gastropathy was found in the gastric fundus and in the gastric body. The exam of the stomach was otherwise normal. The examined duodenum was normal. Impression: - Z-line, 30 cm from the incisors. - Grade I esophageal varices. - Portal hypertensive gastropathy. - Normal examined duodenum. - No source of UGIB identified. It is possible that this is a LGIB (diverticula, AVM). Recommendation: - Discharge pt to ICU. - Discontinue Protonix drip and Octreotide drip. Will resume stress ulcer prohlyaxis. - Full liquids today, then adv diet as tolerated in no further bleeding in am. - OK to resume ASA. Would hold Plavix for an additional 5 days. OK to resume DVT prophy with heparin if otherwise indicated. - Will sign off, but please reconsult if bleeding recurs. Sury Armijo M.D. Sury Armijo MD 11/19/2021 5:04:07 PM This report has been signed electronically. Note Initiated On: 11/19/2021 3:57 PM Number of Addenda: 0 I attest to the content of the Intraoperative Record and orders documented therein, exceptions below {[id number]}
--- NOTE | 2021-11-19 18:14 | Anesthesiology Progress Note ---
Date of Service November 19, 2021 Anesthesia Post Procedure Vital Signs Vital Signs: Temp Pulse Pulse Resp BP Pulse Ox 11/19/21 18:05 46 L 20 108/44 L 94 11/19/21 17:55 48 L 20 121/44 L 93 11/19/21 17:45 36.0 C L 46 L 20 112/47 L 92 11/19/21 15:43 35.9 C L 43 L 20 103/52 L 94 11/19/21 15:00 48 L 11/19/21 14:36 36.3 C L 11/19/21 14:00 35.9 C L 11/19/21 13:09 35 L 20 94 11/19/21 13:03 35.6 C L 41 L 14 104/50 L 93 11/19/21 10:47 41 L 12 100/43 L 95 11/19/21 08:17 36.4 C L 40 L 22 104/31 L 93 11/19/21 08:00 36 L 11/19/21 07:24 37 L 20 95 11/19/21 04:00 35.5 C L 47 L 14 112/56 L 96 11/19/21 02:04 20 90 11/19/21 00:00 36 C L 44 L 12 134/45 L 91 11/18/21 20:53 35 C L 61 12 92 11/18/21 20:40 52 L 18 91 11/18/21 19:11 35.0 C L 55 L 18 129/46 L 96 Transfer of Care Handoff Completed per policy Notes Patient Amnestic to Procedure: Yes Nausea / Vomiting: adequately controlled Pain: adequately controlled Airway Patency, RR, SpO2: stable & adequate Hydration State: stable & adequate Anesthetic Complications: no major complications apparent and Pt Satisfied with anesthetic care Notes: fm oxygen. sedated. vipul but has been recently. bp stable. tolerated with sedation. central line placed. awaiting post line xray
--- NOTE | 2021-11-19 18:23 | XRay Report ---
XR chest 1V portable CLINICAL HISTORY: central line placement. Evaluate for placement and pneumothorax COMPARISON STUDY: 11/17/2021 TECHNIQUE: 1 view of the chest FINDINGS: Single frontal view of the chest demonstrates the heart to again be enlarged. Right jugular catheter has been placed with its tip extending into the right atrium. The lungs are clear of alveolar opaciti es. There is left basilar atelectasis. There are again bilateral pleural effusions. There is no evide nce for vascular congestion. There is no acute osseous pathology. IMPRESSION: Tip of right jugular catheter extends into the right atrium. Small bilateral pleural effu sions and left basilar atelectasis. ACT 112: Negative or not required by law. Electronically signed by: Todd Dennis M.D. 11/19/2021 6:22 PM
[2021-11-19] MEDS ORDERED: OCTREOTIDE ACETATE 500 MCG in DEXTROSE 5% 100 ML IV SCH (19:00)
--- NOTE | 2021-11-19 19:06 | Anesthesiology Progress Note ---
Date of Service November 19, 2021 Assessment & Plan (1) Encounter for pre-operative examination: Present on Admission?: No Plan: Central Line Note Date and time of procedure: 11/19/21 Indication: Central Access Consent: Informed consent obtained from the patient. The inherent risks, expected benefits, treatment alternatives, as well as the technical aspects of the procedure were discussed with the patient and a full explanation was given. Patient was given the opportunity to ask questions, which were answered to their satisfaction. Time Out: A time-out was performed verifying correct patient with two identifier s, procedure, site, positioning, and special equipment (if needed). Monitors Attached: EKG BP Pulse Oximetry CO2 Pre Medication: Propofol. See anesthesia record. Side: Right Location: Internal Jugular Prep: Chloraprep x2 sterile drape sterile procedures used Central Line Lumen: Triple Procedural Details: Patient was positioned with cannulated vein in dependent position. Vein identified using ultrasound guidance. Good return of dark, nonpulsatile blood after needle placement. Guidewire threaded easily and was verified in the vein by ultrasound. Accessed vessel was transduced prior to dilation. After dilation, the catheter advanced easily over the guide wire. Guide wire was removed and the catheter was sutured in place. Antibiotic disc placed and site covered with occlusive dressing. All ports aspirated and flushed. Post-procedure: Pt hemodynamically stable throughout. Patient tolerated the procedure well without apparent complications. Post placement CXR ordered. Admission and Anticipated Discharge Date Admission Date: November 08, 2021 Subjective Asked by primary team to place central line as its been difficult to obtain necessary access for this patient. See note below. Physical Exam Vital Signs: Last Vital Signs Temp 36.0 C L 11/19/21 17:45 Pulse 48 L 11/19/21 18:15 Resp 20 11/19/21 18:15 BP 113/48 L 11/19/21 18:15 Pulse Ox 94 11/19/21 18:15
[2021-11-19] MEDS: methylPREDNISolone 40 MG in SYRINGE 0 ML IV SCH (19:18)
[2021-11-19] MEDS: carvediloL 3.125 MG TAB PO SCH (20:53)
[2021-11-19] MEDS: GABAPENTIN 300 MG CAP PO SCH (20:54)
[2021-11-19] MEDS: HEPARIN SOD 5,000 UNIT/0.5 ML VIAL SQ SCH (21:09)
[2021-11-20] MEDS: LEVALBUTEROL 1.25MG/0.5ML NEB INH SCH ×4 (01:27→19:58)
[2021-11-20] MEDS: IPRATROPIUM BROMIDE NEB SOLN 0.02% 2.5 ML VIAL INH SCH ×4 (01:27→19:58)
[2021-11-20] MEDS: methylPREDNISolone 40 MG in SYRINGE 0 ML IV SCH ×3 (03:00→18:37)
[2021-11-20 05:29] LABS: Mean Corpuscular Hgb Conc 30.8 g/dL (32-36)
[2021-11-20 05:36] LABS: Hematocrit (blood only) 28.9 % (37-47); Hemoglobin 8.9 g/dL (12.0-16.0); Mean Corpuscular Hemoglobin 27.6 pg (25-34); Mean Corpuscular Volume 89.5 fL (80-100); RDW Coefficient of Variation 20.1 % (11.5-14.5); RDW Standard Deviation 64.9 fL (36.4-46.3); Red Blood Count 3.23 M/uL (4.2-5.4); White Blood Count 8.46 K/uL (4.8-10.8)
[2021-11-20] MEDS: INSULIN ASPART PER UNIT SC SCH ×6 (05:44→21:05)
[2021-11-20 05:45] LABS: Platelet Count 84 K/uL (130-400)
[2021-11-20 05:46] LABS: BUN Creatinine Ratio 38.8 (10-20); Calcium 7.3 mg/dl (8.5-10.1); Creatinine Clr Calc Pharmacy 16.6 ml/min; Est GFR (African American) 23.7 ml/min; Est GFR (Non-African American) 20.5 ml/min; Potassium 4.6 mmol/L (3.5-5.1)
[2021-11-20 05:47] LABS: Anisocytosis Present; Hypochromasia Present; Immature Granulocytes # (auto) 0.06 K/uL (0.00-0.02); Immature Granulocytes % (auto) 0.7 %; Lymphocytes # (auto) 0.49 K/uL (1.2-3.4); Lymphocytes % (auto) 5.8 %; Monocytes # (auto) 0.11 K/uL (0.11-0.59); Monocytes % (auto) 1.3 %; Neutrophils % (auto) 92.2 %; Platelet Estimate Decreased (Normal); Polychromasia 1+
[2021-11-20] MEDS: LEVOTHYROXINE SODIUM 88 MCG TABLET PO SCH (05:47)
[2021-11-20] MEDS: UMECLIDINIUM/VILANTEROL 62.5/25MCG 7 PUFFS/INHALER INH SCH (08:25)
[2021-11-20] MEDS: PANTOprazole 40 MG TAB PO SCH (08:26)
[2021-11-20] MEDS: INSULIN GLARGINE SOLOSTAR 100 UNITS/ML 3 ML PEN SC SCH ×2 (08:26→21:05)
[2021-11-20] MEDS: ATORVASTATIN 20 MG TAB PO SCH (08:30)
[2021-11-20] MEDS: HEPARIN SOD 5,000 UNIT/0.5 ML VIAL SQ SCH ×2 (08:30→20:57)
[2021-11-20] MEDS: ASPIRIN 81 MG ECTAB PO SCH (08:30)
[2021-11-20] MEDS: carvediloL 3.125 MG TAB PO SCH (08:30)
--- NOTE | 2021-11-20 09:52 | Nephrology Progress Note ---
Date of Service November 20, 2021 Assessment & Plan (1) Acute kidney injury superimposed on chronic kidney disease: Plan: Acute kidney injury on CKD likely due to ischemic ATN in setting of hypotension, GI bleed and bradycardia. Creatinine is uptrending to 2.1. -Avoid hypotension. Holding amlodipine and Coreg. -Daily BMP -Avoid nephrotoxin -Monitor input output -Okay to continue Lasix Admission and Anticipated Discharge Date Admission Date: November 08, 2021 Subjective Seen for acute kidney injury. She is making some urine but creatinine is uptrending. She had EGD yesterday but no active source of bleeding Review of Systems Review of Systems: All other systems were reviewed and negative except as noted in HPI Physical Exam Physical Exam: General exam: Appears comfortable, no acute distress.On oxygen nasal cannula HEENT: Pupils are equal and reactive to light Neck: No JVD, neck is supple trachea is midline Respiratory system: Crackles bilaterally. Gastrointestinal: Abdomen is soft, non distended, non tender, bowel sounds are present CVS: Regular rate and rhythm. No murmurs, rubs or gallops Musculoskeletal: No joint or muscle tenderness Extremities: Non tender, no edema, peripheral pulses are present Neuro: Oriented, no tremors, no focal neurological deficits Skin: No rashes Results & Data ([facility]) Vital Signs (Past 12 Hours) Vital Signs Temp Pulse Pulse Resp BP Pulse Ox 11/20/21 08:00 40 L 11/20/21 07:26 48 L 20 94 11/20/21 03:39 36.5 C 43 L 13 125/55 L 97 11/20/21 01:27 47 L 18 92 11/19/21 23:59 45 L 11/19/21 23:57 36.8 C 47 L 18 134/52 L 94 Laboratory Results 11/20/21 05:10 11/20/21 05:10 WBC 8.46 RBC 3.23 L MCV 89.5 MCH 27.6 MCHC 30.8 L RDW Std Deviation 64.9 H RDW Coeff of Daniela 20.1 H Plt Count 84 L
[2021-11-20] MEDS: AMPICILLIN/SULBACTAM SOD 3,000 MG in DEXTROSE 5% 100 ML IV SCH ×2 (11:48→23:10)
--- NOTE | 2021-11-20 12:07 | Pharmacy Report ---
Pharmacy Glycemic Short Note 2 - Date of Service November 20, 2021 - Glycemic Short BSG Results (Last 24 hours): 11/19/21 11/19/21 11/19/21 12:27 15:40 16:06 Glucose POC Glucose 105 H 103 H 98 11/19/21 11/19/21 11/20/21 20:11 23:40 05:10 Glucose 221 H POC Glucose 227 H 206 H 11/20/21 11/20/21 11/20/21 05:42 11:44 11:45 Glucose POC Glucose 229 H > 600 H* 288 H OUTPATIENT ANTIDIABETIC REGIMEN: * Tresiba 15 units Q AM * Sitagliptin 100mg PO daily * A1c = 9.4% 11/09/21 ASSESSMENT: 11/20: * Blood sugars well controlled until starting Solu-Medrol 40mg IV Q8H last evening, now blood sugars in 200s. * Will place NovoLog protocol on hold, as patient is hyperglycemic now and patient responded similarly when steroids were given on 11/16. * NovoLog CF + CR q4h, start at 1400 today 11/19: * Patient received 19 units of Lantus yesterday, fasting 97 mg/dL, Lantus this AM held per scale and patient is NPO for procedure. Will keep same scale for PM. * Midday BSG 105 mg/dL. * Will continue NovoLog protocol for now 11/15 * Patient well controlled over the past 24 hours, receiving only 5 units of insulin total * Patient's PO intake appears to be minimal. * Will loosen Lantus scale and continue with NovoLog protocol for now 11/12 * Type 2 diabetic admitted for sepsis secondary to multifocal pneumonia, UTI * Patient has been transferred to ICU * Nephrology has ordered dextrose containing IVFs (D5W + 50mEq Bicarb + 40mEq K Tom) to run at 125cc/hr for metabolic acidosis, hypernatremia. * BSGs had been well controlled until yesterday afternoon, suspect deterioration in control was secondary to dextrose provision in IVs used to provide free water. * Plan to continue with scaled Lantus dosing BID in current dose as she has required little basal insulin this admission due to poor PO intake * Plan to adjust NovoLog dosing to Q 4 hrs, provide a scheduled dose of NovoLog while in goal range on dextrose containing fluids to help cover the 25gm carbs provided every 4 hours. This scale can be converted back to traditional CF/CR dosing when dextrose containing IVFs d/c'd or rate reduced PLAN FOR INPATIENT GLYCEMIC CONTROL: * Hold outpatient oral diabetes medications (sitagliptin) * Basal insulin * Lantus 0-12 units SQ BID per scale * Bolus insulin * HOLD: * NovoLog per scale Q 4 hrs while on current dextrose containing IVFs, please use carb ratio indicated as well: * Novolog Q4H * Goal range 110-140mg/dl * CF: 10 mg/dL/unit * Carb ratio: 1 unit for every 4 grams CHO consumed PLAN FOR DISCHARGE: * to be determined
[2021-11-20] MEDS ORDERED: INSULIN HUMAN REGULAR IV BOLUS 2.5 UNITS in SYRINGE 0 ML IV ONE (17:00)
[2021-11-20] MEDS ORDERED: INSULIN REGULAR 250 UNITS in SODIUM CHLORIDE 0.9% 247.5 ML IV SCH (17:00)
[2021-11-20] MEDS ORDERED: FUROSEMIDE INJ 20 MG/2 ML VIAL IV ONE (17:57)
[2021-11-20] MEDS ORDERED: INSULIN ASPART 100 UNITS/ML 3 ML PEN SC SCH (18:00)
[2021-11-20] MEDS ORDERED: INSULIN ASPART PER UNIT SC SCH (18:00)
--- NOTE | 2021-11-20 20:47 | Hospitalist Progress Note ---
Date of Service November 20, 2021 Assessment & Plan (1) GI bleed: (2) Anemia: Plan: Patient had 3 episode of maroon-colored bowel movement today Hemoglobin dropped from 11 yesterday to 7.1 today GI was notified about the drop in hemoglobin and GI bleed Dr. Armijo discussed the case with daughter, patient and son about EGD Patient will need to get intubated due to respiratory status for the EGD and will remain intubating after the procedure as per anesthesiologist Patient does not want to get intubated for the procedure and pt decided not to proceed with the procedure Dr. Armijo explained to pt and family dennis hgb might continue to drop, ongoing bleeding, if endoscopy is not performed. We will continue PPI drip and octreotide Patient was started on Cipro per GI due to the history of cirrhosis Type and cross done and obtained consent from daughter/patient about blood transfusion We will transfuse 1 unit PRBC now and will place 2 unit on hold in case hemoglobin continued to drop We will continue monitor CBC every 6 hours 11/20/21 S/P 1 unit PRBC transfusion on 11/17/21 Hgb 8.9 today Case discussed with hospitalist Dr. Boland at [facility] that was not able to accept her for transfer due to lack of bed available EGD done yesterday showed Grade I esophageal varices. Portal hypertensive gastropathy. No source of UGIB identified. It is possible that this is a LGIB (diverticula, AVM). Diet advance as tolerated Will resume resume ASA. Continue to hold Plavix for an additional 5 days. OK to resume DVT prophy with heparin if otherwise indicated as per GI Continue monitor H/H "Continue (3) Transaminitis: Plan: LFT worsening with AST 252, ALT 114 and Alk 240 Liver enzymes trending with AST 143 and ALT 89 and Alk 171 Continue to hold statin Continue monitor CMP (4) Thrombocytopenia: Plan: Platelet dropped to 84 today Possible related to the acute GI bleed, worsening liver enzymes, abx therapy Continue monitor cbc (5) Acute metabolic encephalopathy: Plan: 86yo F with a PMH of PAD s/p stent L subclavian, superior mesenteric artery, L iliac and fempop bypass, infrarenal AAA measuring 3.9 cm, HTN, HLD, CKD III, insulin dependent DM II, COPD, hypothyroidism, history of C. difficile in May 2021 and other medical problems who presents after unwitnessed fall with acute metabolic encephalopathy, sepsis and pneumonia. Initially resolved after sepsis resuscitation, however, she has become obtunded overnight. Multiple factors likely contributing with worsening hypoxia, hypernatremia, and ongoing infections-not an exhaustive list of contributing factors. CT head on admission showed no acute intracranial hemorrhage, no evidence of acute territorial infarction or other acute intracranial disease process. resolved (6) Pneumonia: (7) Hypoxia: Plan: Possible related to pneumonia initially, and developed fluid overload after resuscitation CT chest on admission showed right lower lobe consolidative opacities concerning for pneumonia and/or aspiration. COVID-19 PCR negative Influenza A/B negative RSV negative Procalcitonin: 39 --> 13 Initially was started on vanc and Zosyn. Out of concerns for EARL, changed Zosyn to cefepime. Sputum culture growing strep as well as MSSA Speech was consulted and reported no issues wtih aspiration on her examination and she initially improved on abx. Then further hypoxia is possibly 2/2 fluid overload after resuscitation efforts Repeat chest x-ray today showed pulmonary vascular congestion. Unchanged layering pleural effusions with bibasilar consolidation suggestive of atelectasis versus pneumonia. Currently on 15 L oxygen supplement via oxygen mask Currently on Unasyn, will complete course today Continue to hold the Solu-Medrol for now due to the GI bleed in a cirrhosis patient Lasix as needed if BP stable (8) Atrial fibrillation with rapid ventricular response: Plan: New onset atrial fibrillation with RVR overnight in setting of pulmonary illness and possible fluid overload after resuscitation from sepsis. Currently on normal sinus rhythm with rate stable Cardiology on board ECHO showed LV function is well-preserved and no significant valvular pathology. No additional recommendations at this time. carvedilol decreased to 3.125 mg BID Bradycardia HR dropped btw 30 to 40 Asymptomatic Carvedilol decreased to 3.125 mg Case discussed with cardiology that recommended to continue beta alejo with parameter Continue monitor (9) UTI (urinary tract infection): Plan: Urine culture grew Enterococcus faecalis Received IV Vanco (10) Sepsis: Plan: Resuscitated. Cont antibiotics. (11) Abdominal pain: Plan: Initially was resolved, however, appeared to withdraw from pain during exam this morning. She is altered and on BIPAP, actively trying to remove her mask and with mitts on. She is not a reliable historian at this time. During this admission, in the setting of abdominal pain with cirrhosis, hyperbilirubinemia and cholelithiasis she was also seen by gastroenterology and surgery who felt no further workup or treatments were warranted. Her elevated total bilirubin and tender abdomen was thought to be possibly secondary to infection or sepsis versus decompensated cirrhosis. As this has improved with treatment of her infection and it was more likely the former. Defer further workup to ICU team as needed. CT also found that endometrium is abnormally thickened for age which will be not emergently evaluated with a pelvic ultrasound and [employer] evaluation as outpatient. Currently denies abdominal pain (12) Hypertension: Plan: We will hold bp meds due to low hemoglobin from GI bleed Amlodipine d/c continue monitor BP (13) Fall: Plan: Patient remembers falling out of her bed -likely related to weakness in setting of metabolic encephalopathy which is now clearing. Min CK elevation expected. Likely improved after IVF resuscitation. CT head, cervical spine CT, chest CT, pelvic XR without evidence of acute trauma or fracture. Cont with Fall precautions, PT OT evaluation (14) Acute kidney injury superimposed on chronic kidney disease: Plan: Cr elevated at 1.36 (baseline ~ 0.9) in setting of dehydration and sepsis. Creatinine 2.1 today Nephrology on board Continue monitor BMP while getting IV Lasix as needed Nephrology on board Case discussed with nephrology that recommended to give Lasix Continue monitor BMP while on Lasix (15) PAD (peripheral artery disease): Plan: chronic, stable. S/p stent L subclavian, superior mesenteric artery, L iliac and fempop bypass Follows with Dr. Andrade of vascular surgery in [place] Continue to hold aspirin, plavix, statin due to active GI bleed (16) Cirrhosis: Plan: Diagnosed in January 2021, [place], She is at risk for hypervolemia so we will be cautious with IV fluids. Possibly more hypervolemic now. Ammonia level was checked yesterday and was <10, so somnolence was not thought to be related to hepatic encephalopathy, however, this could be reassessed with declined mental status today. (17) DM II (diabetes mellitus, type II), controlled: Plan: A1c 9.4 reflecting poor overall control. Pharmacy on board for glycemic management Blood sugar elevated about 400, started on IV insulin drip Continue monitor blood sugar (18) COPD (chronic obstructive pulmonary disease): Plan: chronic, stable-no wheezing. Does not require O2 at baseline. Former smoker. Continue Anoro Ellipda, Albuterol inh PRN (19) Hypothyroidism: Plan: Continue levothyroxine per home regimen. (20) Thickened endometrium: Plan: Esophageal varices with a small volume of abdominal pelvic ascites and splenomegaly indicating portal hypertension is present. There is also wall thickening of the right colon with mild pericolic infiltration which could present a nonspecific colitis. She continues on antibiotics and would appreciate gastroenterology thoughts on this. Endometrium is abnormally thickened for age which will be not emergently evaluated with a pelvic ultrasound and [employer] evaluation as outpatient. (21) Aneurysm of infrarenal abdominal aorta: Plan: incidental finding on CT scan. Follow-up as outpatient for monitoring. (22) DVT prophylaxis: Plan: DVT Ppx: Heparin on hold due to active GI bleed Code status: DNR Dispo Continue to monitor closely Admission and Anticipated Discharge Date Admission Date: November 08, 2021 Subjective Pt was seen and examined for follow up of anemia and SOB Lying in bed with no acute distress resting Pt said that she feels much better Denies any chest pain, palpitation, dizziness and SOB Review of Systems Review of Systems: All systems reviewed & are unremarkable except as noted in Subjective Physical Exam Physical Exam: General-No acute distress Head- atraumatic Eyes- PERRL, EOMI, ENT- oropharynx clear Neck- supple, no JVD Lungs- +diminished breath sounds Heart- regular rhythm; no murmur Abdomen- normal bowel sounds,nontender Extremities- no calf tenderness Neuro- alert, awake and oriented, PERRL, no facial palsy; no dysarthria Skin- warm & dry Results & Data Results & Data ([facility]) Vital Signs (Past 12 Hours) Vital Signs Temp Pulse Resp BP Pulse Ox 11/20/21 19:58 20 90 11/20/21 19:29 36.3 C L 42 L 13 156/51 H 90 11/20/21 13:49 43 L 20 93 11/20/21 12:00 36.5 C 42 L 15 143/44 H 96 (1) Anemia Anemia type: unspecified type Qualified Code(s): D64.9 - Anemia, unspecified (2) Pneumonia Laterality: right Lung location: unspecified part of lung Pneumonia type: due to unspecified organism Qualified Code(s): J18.9 - Pneumonia, unspecified organism
[2021-11-20] MEDS: GABAPENTIN 300 MG CAP PO SCH (20:57)
[2021-11-21] MEDS: IPRATROPIUM BROMIDE NEB SOLN 0.02% 2.5 ML VIAL INH SCH ×4 (00:01→20:51)
[2021-11-21] MEDS: LEVALBUTEROL 1.25MG/0.5ML NEB INH SCH ×4 (00:01→20:51)
[2021-11-21 05:17] LABS: Mean Corpuscular Hgb Conc 31.9 g/dL (32-36)
[2021-11-21 05:38] LABS: Hematocrit (blood only) 27.9 % (37-47); Hemoglobin 8.9 g/dL (12.0-16.0); Mean Corpuscular Hemoglobin 28.4 pg (25-34); Mean Corpuscular Volume 89.1 fL (80-100); RDW Standard Deviation 62.4 fL (36.4-46.3); Red Blood Count 3.13 M/uL (4.2-5.4); White Blood Count 10.24 K/uL (4.8-10.8)
[2021-11-21 05:42] LABS: Albumin Globulin Ratio 0.9 (0.9-2); Albumin Level 2.5 gm/dl (3.4-5.0); BUN Creatinine Ratio 40.5 (10-20); Calcium 7.8 mg/dl (8.5-10.1); Creatinine Clr Calc Pharmacy 18.1 ml/min; Est GFR (African American) 25.7 ml/min; Est GFR (Non-African American) 22.2 ml/min; Globulin 2.8 gm/dl (2.5-4.0); Potassium 4.1 mmol/L (3.5-5.1); Total Protein 5.3 gm/dl (6.0-8.3)
[2021-11-21 05:51] LABS: Platelet Count 89 K/uL (130-400); Platelet Estimate Decreased (Normal)
[2021-11-21] MEDS: LEVOTHYROXINE SODIUM 88 MCG TABLET PO SCH (06:33)
[2021-11-21] MEDS: PANTOprazole 40 MG TAB PO SCH (07:43)
[2021-11-21] MEDS: predniSONE 20 MG TAB PO SCH (07:43)
[2021-11-21] MEDS: INSULIN ASPART PER UNIT SC SCH ×5 (07:43→23:49)
[2021-11-21] MEDS: UMECLIDINIUM/VILANTEROL 62.5/25MCG 7 PUFFS/INHALER INH SCH (07:44)
[2021-11-21] MEDS: ASPIRIN 81 MG ECTAB PO SCH (07:44)
[2021-11-21] MEDS: ATORVASTATIN 20 MG TAB PO SCH (07:44)
[2021-11-21] MEDS: INSULIN GLARGINE SOLOSTAR 100 UNITS/ML 3 ML PEN SC SCH ×2 (07:44→21:05)
[2021-11-21] MEDS: HEPARIN SOD 5,000 UNIT/0.5 ML VIAL SQ SCH ×2 (07:44→21:08)
--- NOTE | 2021-11-21 09:31 | Nephrology Progress Note ---
Date of Service November 21, 2021 Assessment & Plan (1) Acute kidney injury superimposed on chronic kidney disease: Plan: Acute kidney injury on CKD likely due to ischemic ATN in setting of hypotension, GI bleed and bradycardia. Creatinine is stable at 2. -Avoid hypotension. Holding amlodipine and Coreg. -Daily BMP -Avoid nephrotoxin -Monitor input output -Okay to continue Lasix 20 mg IV twice daily Admission and Anticipated Discharge Date Admission Date: November 08, 2021 Subjective Patient complains of tiredness. She has shortness of breath on 9 L of oxygen. She was net even yesterday. Review of Systems Review of Systems: All other systems were reviewed and negative except as noted in HPI Physical Exam Physical Exam: General exam: Appears comfortable, no acute distress.On oxygen nasal cannula HEENT: Pupils are equal and reactive to light Neck: No JVD, neck is supple trachea is midline Respiratory system: Crackles bilaterally. Gastrointestinal: Abdomen is soft, non distended, non tender, bowel sounds are present CVS: Regular rate and rhythm. No murmurs, rubs or gallops Musculoskeletal: No joint or muscle tenderness Extremities: Non tender, no edema, peripheral pulses are present Neuro: Oriented, no tremors, no focal neurological deficits Skin: No rashes Results & Data ([facility]) Vital Signs (Past 12 Hours) Vital Signs Temp Pulse Pulse Resp BP Pulse Ox 11/21/21 09:06 36.4 C L 45 L 15 145/51 H 92 11/21/21 08:44 43 L 20 89 L 11/21/21 08:00 46 L 11/21/21 06:51 36.0 C L 11/21/21 04:58 35.5 C L 11/21/21 04:22 35.3 C L 43 L 11 L 114/63 90 11/21/21 00:02 45 L 20 90 11/20/21 23:59 43 L 11/20/21 23:21 36.3 C L 46 L 11 L 150/57 H 89 L Laboratory Results 11/21/21 04:46 11/21/21 11/21/21 04:46 04:46 WBC 10.24 RBC 3.13 L MCV 89.1 MCH 28.4 MCHC 31.9 L RDW Std Deviation 62.4 H RDW Coeff of Daniela 20.0 H Plt Count 89 L Albumin 2.5 L
--- NOTE | 2021-11-21 11:43 | Pharmacy Report ---
Pharmacy Glycemic Short Note 2 - Date of Service November 21, 2021 - Glycemic Short BSG Results (Last 24 hours): 11/20/21 11/20/21 11/20/21 11:44 11:45 14:20 Glucose POC Glucose > 600 H* 288 H 407 H* 11/20/21 11/20/21 11/20/21 14:21 16:23 16:24 Glucose POC Glucose 395 H* 413 H* 399 H* 11/20/21 11/20/21 11/20/21 19:11 19:14 20:05 Glucose POC Glucose 365 H* 418 H* 376 H* 11/20/21 11/20/21 11/20/21 21:00 22:04 23:09 Glucose POC Glucose 297 H 289 H 277 H 11/20/21 11/21/21 11/21/21 23:55 01:01 02:02 Glucose POC Glucose 206 H 158 H 115 H 11/21/21 11/21/21 11/21/21 02:17 02:32 03:02 Glucose POC Glucose 110 H 101 H 113 H 11/21/21 11/21/21 11/21/21 03:59 04:46 04:51 Glucose 98 POC Glucose 91 101 H 11/21/21 11/21/21 11/21/21 06:45 07:32 11:27 Glucose POC Glucose 95 115 H 222 H OUTPATIENT ANTIDIABETIC REGIMEN: * Tresiba 15 units Q AM * Sitagliptin 100mg PO daily * A1c = 9.4% 11/09/21 ASSESSMENT: 11/21: * Blood sugars continued to escalate last evening, insulin drip started and ran ~8 hours, blood sugar at goal this morning and insulin drip on hold since 0200, DC drip and resume basal bolus insulin * Steroids changed to Prednisone 40mg PO Daily * Unasyn discontinued, mixed in dextrose * Consider changing from Lantus to NPH tomorrow to cover steroid effects if steroids continue and blood sugars remain uncontrolled, too late to change today * Tighten CR for better steroid coverage, which effects post-prandial blood sugars most 11/20: * Blood sugars well controlled until starting Solu-Medrol 40mg IV Q8H last evening, now blood sugars in 200s. * Will place NovoLog protocol on hold, as patient is hyperglycemic now and patient responded similarly when steroids were given on 11/16. * NovoLog CF + CR q4h, start at 1400 today 11/19: * Patient received 19 units of Lantus yesterday, fasting 97 mg/dL, Lantus this AM held per scale and patient is NPO for procedure. Will keep same scale for PM. * Midday BSG 105 mg/dL. * Will continue NovoLog protocol for now 11/15 * Patient well controlled over the past 24 hours, receiving only 5 units of insulin total * Patient's PO intake appears to be minimal. * Will loosen Lantus scale and continue with NovoLog protocol for now 11/12 * Type 2 diabetic admitted for sepsis secondary to multifocal pneumonia, UTI * Patient has been transferred to ICU * Nephrology has ordered dextrose containing IVFs (D5W + 50mEq Bicarb + 40mEq K Tom) to run at 125cc/hr for metabolic acidosis, hypernatremia. * BSGs had been well controlled until yesterday afternoon, suspect deterioration in control was secondary to dextrose provision in IVs used to provide free water. * Plan to continue with scaled Lantus dosing BID in current dose as she has required little basal insulin this admission due to poor PO intake * Plan to adjust NovoLog dosing to Q 4 hrs, provide a scheduled dose of NovoLog while in goal range on dextrose containing fluids to help cover the 25gm carbs provided every 4 hours. This scale can be converted back to traditional CF/CR dosing when dextrose containing IVFs d/c'd or rate reduced PLAN FOR INPATIENT GLYCEMIC CONTROL: * Hold outpatient oral diabetes medications (sitagliptin) * DC insulin drip * Basal insulin * Lantus 0-12 units SQ BID per scale * Bolus insulin * Novolog Q4H * Goal range 110-140mg/dl * CF: 10 mg/dL/unit * Carb ratio: 1 unit for every 3 grams CHO consumed PLAN FOR DISCHARGE: * to be determined
[2021-11-21] MEDS: FUROSEMIDE INJ 20 MG/2 ML VIAL IV SCH ×2 (11:56→21:09)
--- NOTE | 2021-11-21 17:36 | Hospitalist Progress Note ---
Date of Service November 21, 2021 Assessment & Plan (1) GI bleed: (2) Anemia: Plan: Patient had 3 episode of maroon-colored bowel movement today Hemoglobin dropped from 11 yesterday to 7.1 today GI was notified about the drop in hemoglobin and GI bleed Dr. Armijo discussed the case with daughter, patient and son about EGD Patient will need to get intubated due to respiratory status for the EGD and will remain intubating after the procedure as per anesthesiologist Patient does not want to get intubated for the procedure and pt decided not to proceed with the procedure Dr. Armijo explained to pt and family dennis hgb might continue to drop, ongoing bleeding, if endoscopy is not performed. We will continue PPI drip and octreotide Patient was started on Cipro per GI due to the history of cirrhosis Type and cross done and obtained consent from daughter/patient about blood transfusion We will transfuse 1 unit PRBC now and will place 2 unit on hold in case hemoglobin continued to drop We will continue monitor CBC every 6 hours 11/21/21 S/P 1 unit PRBC transfusion on 11/17/21 Hgb 8.9 today Case discussed with hospitalist Dr. Boland at [facility] that was not able to accept her for transfer due to lack of bed available EGD done yesterday showed Grade I esophageal varices. Portal hypertensive gastropathy. No source of UGIB identified. It is possible that this is a LGIB (diverticula, AVM). Diet advance as tolerated Continue ASA 81 mg Continue to hold Plavix for an additional 5 days. OK to resume DVT prophylasis with heparin if otherwise indicated as per GI Continue monitor H/H (3) Transaminitis: Plan: LFT worsening with AST 252, ALT 114 and Alk 240 Liver enzymes trending down with AST from 143 to 47 and ALT from 89 to 55 and Alk from 171 to 139 Continue to hold statin Continue monitor CMP (4) Thrombocytopenia: Plan: Platelet slightly increased to 89 today Possible related to the acute GI bleed, worsening liver enzymes, abx therapy Continue monitor cbc (5) Acute metabolic encephalopathy: Plan: 86yo F with a PMH of PAD s/p stent L subclavian, superior mesenteric artery, L iliac and fempop bypass, infrarenal AAA measuring 3.9 cm, HTN, HLD, CKD III, insulin dependent DM II, COPD, hypothyroidism, history of C. difficile in May 2021 and other medical problems who presents after unwitnessed fall with acute metabolic encephalopathy, sepsis and pneumonia. Initially resolved after sepsis resuscitation, however, she has become obtunded overnight. Multiple factors likely contributing with worsening hypoxia, hypernatremia, and ongoing infections-not an exhaustive list of contributing factors. CT head on admission showed no acute intracranial hemorrhage, no evidence of acute territorial infarction or other acute intracranial disease process. resolved (6) Pneumonia: (7) Hypoxia: Plan: Possible related to pneumonia initially, and developed fluid overload after resuscitation CT chest on admission showed right lower lobe consolidative opacities concerning for pneumonia and/or aspiration. COVID-19 PCR negative Influenza A/B negative RSV negative Procalcitonin: 39 --> 13 Initially was started on vanc and Zosyn. Out of concerns for EARL, changed Zosyn to cefepime. Sputum culture growing strep as well as MSSA Speech was consulted and reported no issues wtih aspiration on her examination and she initially improved on abx. Then further hypoxia is possibly 2/2 fluid overload after resuscitation efforts Repeat chest x-ray today showed pulmonary vascular congestion. Unchanged layering pleural effusions with bibasilar consolidation suggestive of atelectasis versus pneumonia. Currently on 15 L oxygen supplement via oxygen mask Currently on Unasyn, will complete course today Solumedrol was discontinued , then transition to PO Prednisone 40mg daily Continue lasix 20mg IV BID (8) Atrial fibrillation with rapid ventricular response: Plan: New onset atrial fibrillation with RVR overnight in setting of pulmonary illness and possible fluid overload after resuscitation from sepsis. Currently on normal sinus rhythm with rate stable Cardiology on board ECHO showed LV function is well-preserved and no significant valvular pathology. No additional recommendations at this time. carvedilol decreased to 3.125 mg BID Bradycardia HR dropped btw 30 to 40 Asymptomatic Carvedilol decreased to 3.125 mg Case discussed with cardiology that recommended to continue beta alejo with parameter Continue monitor (9) UTI (urinary tract infection): Plan: Urine culture grew Enterococcus faecalis Received IV Vanco (10) Sepsis: Plan: Resuscitated. Cont antibiotics. (11) Abdominal pain: Plan: Initially was resolved, however, appeared to withdraw from pain during exam this morning. She is altered and on BIPAP, actively trying to remove her mask and w ith mitts on. She is not a reliable historian at this time. During this admission, in the setting of abdominal pain with cirrhosis, hyperbilirubinemia and cholelithiasis she was also seen by gastroenterology and surgery who felt no further workup or treatments were warranted. Her elevated total bilirubin and tender abdomen was thought to be possibly secondary to infection or sepsis versus decompensated cirrhosis. As this has improved with treatment of her infection and it was more likely the former. Defer further workup to ICU team as needed. CT also found that endometrium is abnormally thickened for age which will be not emergently evaluated with a pelvic ultrasound and CIRCULAR DISTRIBUTOR evaluation as outpatient. Currently denies abdominal pain (12) Hypertension: Plan: We will hold bp meds due to low hemoglobin from GI bleed Amlodipine d/c continue monitor BP (13) Fall: Plan: Patient remembers falling out of her bed -likely related to weakness in setting of metabolic encephalopathy which is now clearing. Min CK elevation expected. Likely improved after IVF resuscitation. CT head, cervical spine CT, chest CT, pelvic XR without evidence of acute trauma or fracture. Cont with Fall precautions, PT OT evaluation (14) Acute kidney injury superimposed on chronic kidney disease: Plan: Cr elevated at 1.36 (baseline ~ 0.9) in setting of dehydration and sepsis. Creatinine 2.1 today Nephrology on board Continue monitor BMP while getting IV Lasix as needed Nephrology on board Case discussed with nephrology that recommended to continue lasix IV 20mg BID Continue monitor BMP while on Lasix (15) PAD (peripheral artery disease): Plan: chronic, stable. S/p stent L subclavian, superior mesenteric artery, L iliac and fempop bypass Follows with Dr. Andrade of vascular surgery in [place] Continue to hold aspirin, plavix, statin due to active GI bleed (16) Cirrhosis: Plan: Diagnosed in January 2021, [place], She is at risk for hypervolemia so we will be cautious with IV fluids. Possibly more hypervolemic now. Ammonia level was checked yesterday and was <10, so somnolence was not thought to be related to hepatic encephalopathy, however, this could be reassessed with declined mental status today. (17) DM II (diabetes mellitus, type II), controlled: Plan: A1c 9.4 reflecting poor overall control. Pharmacy on board for glycemic management Blood sugar elevated about 400, started on IV insulin drip Continue monitor blood sugar (18) COPD (chronic obstructive pulmonary disease): Plan: chronic, stable-no wheezing. Does not require O2 at baseline. Former smoker. Continue Anoro Ellipda, Albuterol inh PRN (19) Hypothyroidism: Plan: Continue levothyroxine per home regimen. (20) Thickened endometrium: Plan: Esophageal varices with a small volume of abdominal pelvic ascites and splenomegaly indicating portal hypertension is present. There is also wall thickening of the right colon with mild pericolic infiltration which could present a nonspecific colitis. She continues on antibiotics and would appreciate gastroenterology thoughts on this. Endometrium is abnormally thickened for age which will be not emergently evaluated with a pelvic ultrasound and CIRCULAR DISTRIBUTOR evaluation as outpatient. (21) Aneurysm of infrarenal abdominal aorta: Plan: incidental finding on CT scan. Follow-up as outpatient for monitoring. (22) DVT prophylaxis: Plan: DVT Ppx: Heparin on hold due to active GI bleed Code status: DNR Dispo Continue to monitor closely Admission and Anticipated Discharge Date Admission Date: November 08, 2021 Subjective Pt was seen and examined for follow up of anemia and SOB Lying in bed with no acute distress resting Pt said that she did not sleep well last night She said that they kept her up at night since staff are in and out to her room Denies any chest pain, palpitation, dizziness and SOB Review of Systems Review of Systems: All systems reviewed & are unremarkable except as noted in Subjective Physical Exam Physical Exam: General-No acute distress Head- atraumatic Eyes- PERRL, EOMI, ENT- oropharynx clear Neck- supple, no JVD Lungs- +diminished breath sounds Heart- regular rhythm; no murmur Abdomen- normal bowel sounds,nontender Extremities- no calf tenderness Neuro- alert, awake and oriented, PERRL, no facial palsy; no dysarthria Skin- warm & dry Results & Data Results & Data ([facility]) Vital Signs (Past 12 Hours) Vital Signs Temp Pulse Pulse Resp BP Pulse Ox 11/21/21 12:34 36.6 C 42 L 16 151/60 H 94 11/21/21 09:06 36.4 C L 45 L 15 145/51 H 92 11/21/21 08:44 43 L 20 89 L 11/21/21 08:00 46 L 11/21/21 06:51 36.0 C L (1) Anemia Anemia type: unspecified type Qualified Code(s): D64.9 - Anemia, unspecified (2) Pneumonia Laterality: right Lung location: unspecified part of lung Pneumonia type: due to unspecified organism Qualified Code(s): J18.9 - Pneumonia, unspecified organism
[2021-11-21] MEDS: GABAPENTIN 300 MG CAP PO SCH (21:08)
[2021-11-22] MEDS: IPRATROPIUM BROMIDE NEB SOLN 0.02% 2.5 ML VIAL INH SCH ×4 (00:10→19:40)
[2021-11-22] MEDS: LEVALBUTEROL 1.25MG/0.5ML NEB INH SCH ×4 (00:10→19:40)
[2021-11-22] MEDS: INSULIN ASPART PER UNIT SC SCH ×5 (04:10→20:43)
[2021-11-22] MEDS: LEVOTHYROXINE SODIUM 88 MCG TABLET PO SCH (05:23)
[2021-11-22 05:45] LABS: Mean Corpuscular Hgb Conc 31.2 g/dL (32-36)
[2021-11-22 05:59] LABS: Hematocrit (blood only) 30.8 % (37-47); Hemoglobin 9.6 g/dL (12.0-16.0); Mean Corpuscular Hemoglobin 27.7 pg (25-34); Mean Corpuscular Volume 88.8 fL (80-100); RDW Coefficient of Variation 20.4 % (11.5-14.5); Red Blood Count 3.47 M/uL (4.2-5.4); White Blood Count 13.15 K/uL (4.8-10.8)
[2021-11-22 06:11] LABS: Albumin Globulin Ratio 0.9 (0.9-2); Albumin Level 2.6 gm/dl (3.4-5.0); BUN Creatinine Ratio 49.7 (10-20); Bilirubin,Total 0.9 mg/dl (0.2-1.0); Calcium 7.8 mg/dl (8.5-10.1); Creatinine Clr Calc Pharmacy 19.9 ml/min; Est GFR (African American) 29.4 ml/min; Est GFR (Non-African American) 25.4 ml/min; Globulin 2.8 gm/dl (2.5-4.0); Potassium 3.5 mmol/L (3.5-5.1); Total Protein 5.4 gm/dl (6.0-8.3)
[2021-11-22 06:16] LABS: Platelet Count 94 K/uL (130-400); Platelet Estimate Decreased (Normal)
[2021-11-22] MEDS: carvediloL 6.25 MG TAB PO SCH (06:36)
[2021-11-22] MEDS: ASPIRIN 81 MG ECTAB PO SCH (08:04)
[2021-11-22] MEDS: HEPARIN SOD 5,000 UNIT/0.5 ML VIAL SQ SCH ×2 (08:04→20:19)
[2021-11-22] MEDS: FUROSEMIDE INJ 20 MG/2 ML VIAL IV SCH ×2 (08:04→20:49)
[2021-11-22] MEDS: ATORVASTATIN 20 MG TAB PO SCH (08:04)
[2021-11-22] MEDS: PANTOprazole 40 MG TAB PO SCH (08:05)
[2021-11-22] MEDS: UMECLIDINIUM/VILANTEROL 62.5/25MCG 7 PUFFS/INHALER INH SCH (08:05)
[2021-11-22] MEDS: predniSONE 20 MG TAB PO SCH (08:05)
[2021-11-22] MEDS ORDERED: INSULIN HUMAN NPH SC SCH (09:00)
--- NOTE | 2021-11-22 11:17 | Pharmacy Report ---
Pharmacy Glycemic Short Note 2 - Date of Service November 22, 2021 - Glycemic Short BSG Results (Last 24 hours): 11/21/21 11/21/21 11/21/21 11:27 15:51 20:18 Glucose POC Glucose 222 H 294 H 283 H 11/21/21 11/22/21 11/22/21 23:37 04:05 05:18 Glucose 83 POC Glucose 223 H 103 H 11/22/21 07:58 Glucose POC Glucose 84 OUTPATIENT ANTIDIABETIC REGIMEN: * Tresiba 15 units Q AM * Sitagliptin 100mg PO daily * A1c = 9.4% 11/09/21 ASSESSMENT: 11/22: * BSGs elevated throughout the day yesterday, 95, 222, 294, 283, and 223 mg/dL * Received 114 units of insulin (significantly weighted towards bolus insulin, only 16 units of Lantus given) * Steroids changed to prednisone 40 mg PO daily starting yesterday * Will change Lantus to NPH today given low fasting BSGs and to more closely mimic kinetics of prednisone (hopefully control BSGs throughout the day) 11/21: * Blood sugars continued to escalate last evening, insulin drip started and ran ~8 hours, blood sugar at goal this morning and insulin drip on hold since 0200, DC drip and resume basal bolus insulin * Steroids changed to Prednisone 40mg PO Daily * Unasyn discontinued, mixed in dextrose * Consider changing from Lantus to NPH tomorrow to cover steroid effects if steroids continue and blood sugars remain uncontrolled, too late to change today * Tighten CR for better steroid coverage, which effects post-prandial blood sugars most 11/20: * Blood sugars well controlled until starting Solu-Medrol 40mg IV Q8H last evening, now blood sugars in 200s. * Will place NovoLog protocol on hold, as patient is hyperglycemic now and patient responded similarly when steroids were given on 11/16. * NovoLog CF + CR q4h, start at 1400 today 11/12 * Type 2 diabetic admitted for sepsis secondary to multifocal pneumonia, UTI * Patient has been transferred to ICU * Nephrology has ordered dextrose containing IVFs (D5W + 50mEq Bicarb + 40mEq K Tom) to run at 125cc/hr for metabolic acidosis, hypernatremia. * BSGs had been well controlled until yesterday afternoon, suspect deterioration in control was secondary to dextrose provision in IVs used to provide free water. * Plan to continue with scaled Lantus dosing BID in current dose as she has re quired little basal insulin this admission due to poor PO intake * Plan to adjust NovoLog dosing to Q 4 hrs, provide a scheduled dose of NovoLog while in goal range on dextrose containing fluids to help cover the 25gm carbs provided every 4 hours. This scale can be converted back to traditional CF/CR dosing when dextrose containing IVFs d/c'd or rate reduced PLAN FOR INPATIENT GLYCEMIC CONTROL: * Hold outpatient oral diabetes medications (sitagliptin) * Basal insulin - initiate weight-based NPH ~0.3 unit/kg * NPH 22 units SC daily with prednisone 40 mg PO daily * Bolus insulin * Correctional Insulin: Novolog Correction per scale ACHS Goal Range: Low 110 mg/dL - High 140 mg/dL Correction Factor: 10 mg/dL/unit * Prandial insulin: Per carb ratio of 1 unit per 3 grams CHO consumed PLAN FOR DISCHARGE: * to be determined
--- NOTE | 2021-11-22 15:25 | Nephrology Progress Note ---
Date of Service November 22, 2021 Assessment & Plan (1) Acute kidney injury superimposed on chronic kidney disease: Plan: Acute kidney injury on CKD likely due to ischemic ATN in setting of hypotension, GI bleed and bradycardia. Creatinine is down to 1.79 -Avoid hypotension. Holding amlodipine and Coreg. -Daily BMP -Avoid nephrotoxin -Monitor input output -Okay to continue Lasix 20 mg IV twice daily Admission and Anticipated Discharge Date Admission Date: November 08, 2021 Subjective Seen in follow-up for acute kidney injury. She complains of weakness. Breathing is slightly better and requiring less oxygen 6 L today. She is diuresing well. Review of Systems Review of Systems: All other systems were reviewed and negative except as noted in HPI Physical Exam Physical Exam: General exam: Appears comfortable, no acute distress.On oxygen nasal cannula HEENT: Pupils are equal and reactive to light Neck: No JVD, neck is supple trachea is midline Respiratory system: Crackles bilaterally. Gastrointestinal: Abdomen is soft, non distended, non tender, bowel sounds are present CVS: Regular rate and rhythm. No murmurs, rubs or gallops Musculoskeletal: No joint or muscle tenderness Extremities: Non tender, no edema, peripheral pulses are present Neuro: Oriented, no tremors, no focal neurological deficits Skin: No rashes Results [facility] ([facility]) Vital Signs (Past 12 Hours) Vital Signs Temp Pulse Pulse Resp BP Pulse Ox 11/22/21 13:38 43 L 18 93 11/22/21 08:46 46 L 18 91 11/22/21 07:28 36.3 C L 46 L 18 123/51 L 92 11/22/21 07:16 40 L 11/22/21 04:43 36.3 C L 41 L 16 110/55 L 96 Laboratory Results 11/22/21 05:18 11/22/21 11/22/21 05:18 05:18 WBC 13.15 H RBC 3.47 L MCV 88.8 MCH 27.7 MCHC 31.2 L RDW Std Deviation 63.0 H RDW Coeff of Daniela 20.4 H Plt Count 94 L Albumin 2.6 L
[2021-11-22] MEDS: GABAPENTIN 300 MG CAP PO SCH (20:18)
--- NOTE | 2021-11-22 23:49 | Hospitalist Progress Note ---
Date of Service November 22, 2021 Assessment & Plan (1) GI bleed: (2) Anemia: Plan: Patient had 3 episode of maroon-colored bowel movement today Hemoglobin dropped from 11 yesterday to 7.1 today GI was notified about the drop in hemoglobin and GI bleed Dr. Armijo discussed the case with daughter, patient and son about EGD Patient will need to get intubated due to respiratory status for the EGD and will remain intubating after the procedure as per anesthesiologist Patient does not want to get intubated for the procedure and pt decided not to proceed with the procedure Dr. Armijo explained to pt and family dennis hgb might continue to drop, ongoing bleeding, if endoscopy is not performed. We will continue PPI drip and octreotide Patient was started on Cipro per GI due to the history of cirrhosis Type and cross done and obtained consent from daughter/patient about blood transfusion We will transfuse 1 unit PRBC now and will place 2 unit on hold in case hemoglobin continued to drop We will continue monitor CBC every 6 hours 11/22/21 S/P 1 unit PRBC transfusion on 11/17/21 Hgb 9.6 today Case discussed with hospitalist Dr. Boland at [facility] that was not able to accept her for transfer due to lack of bed available EGD done yesterday showed Grade I esophageal varices. Portal hypertensive gastropathy. No source of UGIB identified. It is possible that this is a LGIB (diverticula, AVM). Diet advance as tolerated Continue ASA 81 mg Continue to hold Plavix for an additional 5 days. (Plavix can resume on 11/24 if hemoglobin stable) OK to resume DVT prophylasis with heparin as per GI Continue monitor H/H (3) Transaminitis: Plan: LFT worsening with AST 252, ALT 114 and Alk 240 Liver enzymes continue trending down with AST from 143 to 47--> 31 and ALT from 89 to 55--> 46 and Alk from 171 to 139 Will resume statin in a.m. Resolved (4) Thrombocytopenia: Plan: Platelet slightly increased to 94 today Possible related to the acute GI bleed, worsening liver enzymes, abx therapy Continue monitor cbc (5) Acute metabolic encephalopathy: Plan: 86yo F with a PMH of PAD s/p stent L subclavian, superior mesenteric artery, L iliac and fempop bypass, infrarenal AAA measuring 3.9 cm, HTN, HLD, CKD III, insulin dependent DM II, COPD, hypothyroidism, history of C. difficile in May 2021 and other medical problems who presents after unwitnessed fall with acute metabolic encephalopathy, sepsis and pneumonia. Initially resolved after sepsis resuscitation, however, she has become obtunded overnight. Multiple factors likely contributing with worsening hypoxia, hypernatremia, and ongoing infections-not an exhaustive list of contributing factors. CT head on admission showed no acute intracranial hemorrhage, no evidence of acute territorial infarction or other acute intracranial disease process. resolved (6) Pneumonia: (7) Hypoxia: Plan: Possible related to pneumonia initially, and developed fluid overload after resuscitation CT chest on admission showed right lower lobe consolidative opacities concerning for pneumonia and/or aspiration. COVID-19 PCR negative Influenza A/B negative RSV negative Procalcitonin: 39 --> 13 Initially was started on vanc and Zosyn. Out of concerns for EARL, changed Zosyn to cefepime. Sputum culture growing strep as well as MSSA Speech was consulted and reported no issues wtih aspiration on her examination and she initially improved on abx. Then further hypoxia is possibly 2/2 fluid overload after resuscitation efforts Repeat chest x-ray today showed pulmonary vascular congestion. Unchanged layering pleural effusions with bibasilar consolidation suggestive of atelectasis versus pneumonia. Currently on 5 L oxygen supplement via oxygen mask Completed the course of antibiotic with Unasyn Solumedrol was discontinued , then transition to PO Prednisone 40mg daily, will taper to 20 mg in a.m. Continue lasix 20mg IV BID (8) Atrial fibrillation with rapid ventricular response: Plan: New onset atrial fibrillation with RVR overnight in setting of pulmonary illness and possible fluid overload after resuscitation from sepsis. Currently on normal sinus rhythm with rate stable Cardiology on board ECHO showed LV function is well-preserved and no significant valvular pathology. No additional recommendations at this time. carvedilol decreased to 3.125 mg BID Bradycardia HR dropped btw 30 to 40 Asymptomatic Carvedilol 3.125 mg on hold due to bradycardia Case discussed with cardiology that recommended to continue beta alejo with parameter Continue monitor (9) UTI (urinary tract infection): Plan: Urine culture grew Enterococcus faecalis Received IV Vanco (10) Sepsis: Plan: Resuscitated. Cont antibiotics. (11) Abdominal pain: Plan: Initially was resolved, however, appeared to withdraw from pain during exam this morning. She is altered and on BIPAP, actively trying to remove her mask and with mitts on. She is not a reliable historian at this time. During this admission, in the setting of abdominal pain with cirrhosis, hyperbilirubinemia and cholelithiasis she was also seen by gastroenterology and surgery who felt no further workup or treatments were warranted. Her elevated total bilirubin and tender abdomen was thought to be possibly secondary to infection or sepsis versus decompensated cirrhosis. As this has improved with treatment of her infection and it was more likely the former. Defer further workup to ICU team as needed. CT also found that endometrium is abnormally thickened for age which will be not emergently evaluated with a pelvic ultrasound and PARTS EXP[employer]ER evaluation as outpatient. Currently denies abdominal pain (12) Hypertension: Plan: We will hold bp meds due to low hemoglobin from GI bleed Amlodipine d/c and carvedilol on hold continue monitor BP (13) Fall: Plan: Patient remembers falling out of her bed -likely related to weakness in setting of metabolic encephalopathy which is now clearing. Min CK elevation expected. Likely improved after IVF resuscitation. CT head, cervical spine CT, chest CT, pelvic XR without evidence of acute trauma or fracture. Cont with Fall precautions, PT OT evaluation (14) Acute kidney injury superimposed on chronic kidney disease: Plan: Cr elevated at 1.36 (baseline ~ 0.9) in setting of dehydration and sepsis. Creatinine 1.7 today Nephrology on board Continue monitor BMP while getting IV Lasix as needed Nephrology on board Case discussed with nephrology that recommended to continue lasix IV 20mg BID Continue monitor BMP while on Lasix (15) PAD (peripheral artery disease): Plan: chronic, stable. S/p stent L subclavian, superior mesenteric artery, L iliac and fempop bypass Follows with Dr. Andrade of vascular surgery in [place] Continue to hold aspirin, plavix, statin due to active GI bleed (16) Cirrhosis: Plan: Diagnosed in January 2021, [place], She is at risk for hypervolemia so we will be cautious with IV fluids. Possibly more hypervolemic now. Ammonia level was checked yesterday and was <10, so somnolence was not thought to be related to hepatic encephalopathy, however, this could be reassessed with declined mental status today. (17) DM II (diabetes mellitus, type II), controlled: Plan: A1c 9.4 reflecting poor overall control. Pharmacy on board for glycemic management Blood sugar elevated about 400, started on IV insulin drip Continue monitor blood sugar (18) COPD (chronic obstructive pulmonary disease): Plan: chronic, stable-no wheezing. Does not require O2 at baseline. Former smoker. Continue Anoro Ellipda, Albuterol inh PRN (19) Hypothyroidism: Plan: Continue levothyroxine per home regimen. (20) Thickened endometrium: Plan: Esophageal varices with a small volume of abdominal pelvic ascites and splenomegaly indicating portal hypertension is present. There is also wall thickening of the right colon with mild pericolic infiltration which could present a nonspecific colitis. She continues on antibiotics and would appreciate gastroenterology thoughts on this. Endometrium is abnormally thickened for age which will be not emergently evaluated with a pelvic ultrasound and [employer]S EXP[employer]ER evaluation as outpatient. (21) Aneurysm of infrarenal abdominal aorta: Plan: incidental finding on CT scan. Follow-up as outpatient for monitoring. (22) DVT prophylaxis: Plan: DVT Ppx: Heparin on hold due to active GI bleed Code status: DNR Dispo Continue to monitor closely Admission and Anticipated Discharge Date Admission Date: November 08, 2021 Subjective Pt was seen and examined for follow up of anemia and SOB Lying in bed with no acute distress resting She says she feels tired today She feels her breathing slightly better Denies been chest pain, palpitation, dizziness and SOB Review of Systems Review of Systems: All systems reviewed & are unremarkable except as noted in Subjective Physical Exam Physical Exam: General-No acute distress Head- atraumatic Eyes- PERRL, EOMI, ENT- oropharynx clear Neck- supple, no JVD Lungs- +diminished breath sounds Heart- regular rhythm; no murmur Abdomen- normal bowel sounds,nontender Extremities- no calf tenderness Neuro- alert, awake and oriented, PERRL, no facial palsy; no dysarthria Skin- warm & dry Results & Data Results & Data ([facility]) Vital Signs (Past 12 Hours) Vital Signs Temp Pulse Pulse Resp BP BP Pulse Ox 11/22/21 23:10 36.2 C L 54 L 16 116/62 93 11/22/21 19:45 53 L 15 91 11/22/21 19:22 36.2 C L 49 L 16 112/70 91 01/17/22 15:56 51 L 11/22/21 15:23 36.2 C L 55 L 18 105/65 91 11/22/21 13:38 43 L 18 93 (1) Anemia Anemia type: unspecified type Qualified Code(s): D64.9 - Anemia, unspecified (2) Pneumonia Laterality: right Lung location: unspecified part of lung Pneumonia type: due to unspecified organism Qualified Code(s): J18.9 - Pneumonia, unspecified organism
[2021-11-23] MEDS: LEVALBUTEROL 1.25MG/0.5ML NEB INH SCH ×4 (00:19→19:37)
[2021-11-23] MEDS: IPRATROPIUM BROMIDE NEB SOLN 0.02% 2.5 ML VIAL INH SCH ×4 (00:19→19:38)
[2021-11-23] MEDS: LEVOTHYROXINE SODIUM 88 MCG TABLET PO SCH (05:58)
[2021-11-23 06:38] LABS: Mean Corpuscular Hgb Conc 31.4 g/dL (32-36)
[2021-11-23 06:58] LABS: Hematocrit (blood only) 30.9 % (37-47); Hemoglobin 9.7 g/dL (12.0-16.0); Mean Corpuscular Hemoglobin 27.9 pg (25-34); Mean Corpuscular Volume 88.8 fL (80-100); RDW Coefficient of Variation 20.7 % (11.5-14.5); RDW Standard Deviation 64.6 fL (36.4-46.3); Red Blood Count 3.48 M/uL (4.2-5.4); White Blood Count 11.37 K/uL (4.8-10.8)
[2021-11-23 07:05] LABS: BUN Creatinine Ratio 56.9 (10-20); Calcium 8.2 mg/dl (8.5-10.1); Creatinine Clr Calc Pharmacy 23.5 ml/min; Est GFR (African American) 35.6 ml/min; Est GFR (Non-African American) 30.7 ml/min; Potassium 3.4 mmol/L (3.5-5.1)
[2021-11-23 07:09] LABS: Platelet Count 76 K/uL (130-400)
[2021-11-23 07:11] LABS: Platelet Estimate Decreased (Normal)
[2021-11-23] MEDS: UMECLIDINIUM/VILANTEROL 62.5/25MCG 7 PUFFS/INHALER INH SCH (07:18)
[2021-11-23] MEDS: ATORVASTATIN 20 MG TAB PO SCH (07:20)
[2021-11-23] MEDS: PANTOprazole 40 MG TAB PO SCH (07:20)
[2021-11-23] MEDS: ASPIRIN 81 MG ECTAB PO SCH (07:20)
[2021-11-23] MEDS: predniSONE 20 MG TAB PO SCH (07:20)
[2021-11-23] MEDS: HEPARIN SOD 5,000 UNIT/0.5 ML VIAL SQ SCH ×2 (07:21→22:06)
[2021-11-23] MEDS ORDERED: POTASSIUM CHLORIDE 10 MEQ TABCR PO STA (07:57)
[2021-11-23] MEDS: INSULIN ASPART PER UNIT SC SCH ×3 (08:47→17:10)
[2021-11-23] MEDS: FUROSEMIDE INJ 20 MG/2 ML VIAL IV SCH ×2 (08:53→22:06)
[2021-11-23] MEDS ORDERED: INSULIN HUMAN NPH SC SCH (09:00)
--- NOTE | 2021-11-23 11:42 | Nephrology Progress Note ---
Date of Service November 23, 2021 Assessment & Plan (1) Acute kidney injury superimposed on chronic kidney disease: Plan: Acute kidney injury on CKD from ischemic ATN in setting of hypotension, GI bleed and bradycardia. Creatinine is down to 1.5; peak value 2.0 on 11/19; presenting value 1.3 -Avoid hypotension. Holding amlodipine and Coreg which should continue; stopped prn metoprolol and hydrlazine as not recently used. -Daily BMP -Avoid nephrotoxin -Monitor input output -Okay to continue Lasix 20 mg IV twice daily -had 30 mEq Po K x 1 today appropriately > first time she's needed it; cont to monitor fo rneed Admission and Anticipated Discharge Date Admission Date: November 08, 2021 Subjective feeling better somewhat; up in chair Review of Systems Review of Systems: All systems reviewed & are unremarkable except as noted in Subjective Physical Exam Constitutional: well developed and well nourished; no acute distress Eyes: EOM intact bilaterally ENMT: Ears: no external ear abnormality Nose: no external nose abnormality Mouth: + dry oral mucous membranes Neck: no nuchal rigidity Respiratory: normal respiratory effort Auscultation: + diminished lung sounds and + crackles (BL posterior card) Cardiovascular: RRR, no murmur, no edema Gastrointestinal (Abdomen): Inspection/Auscultation: normal bowel sounds Percussion/Palpation: abdomen soft; abdomen nontender Musculoskeletal: Extremities: strength 5/5 throughout Skin: no rashes, warm and dry Neurologic: shay, fluent speech, no tremor Psychiatric: A+Ox3, euthymic affect Genitourinary: isaacs w/ ample urine Results & Data ([facility]) Vital Signs (Past 12 Hours) Vital Signs Temp Pulse Pulse Resp BP Pulse Ox 11/23/21 11:36 36.4 C L 54 L 16 119/65 93 11/23/21 08:03 36.6 C 52 L 20 145/65 H 98 11/23/21 08:00 43 L 11/23/21 07:30 45 L 18 88 L 11/23/21 04:18 36.7 C 52 L 18 110/75 92 11/23/21 00:19 49 L 18 95 11/22/21 23:59 52 L Laboratory Results 11/23/21 05:53 11/23/21 05:53
--- NOTE | 2021-11-23 12:36 | Hospitalist Progress Note ---
Date of Service November 23, 2021 Assessment & Plan (1) GI bleed: (2) Anemia: Plan: Patient had 3 episode of maroon-colored bowel movement today Hemoglobin dropped from 11 yesterday to 7.1 today GI was notified about the drop in hemoglobin and GI bleed Dr. Armijo discussed the case with daughter, patient and son about EGD Patient will need to get intubated due to respiratory status for the EGD and will remain intubating after the procedure as per anesthesiologist Patient does not want to get intubated for the procedure and pt decided not to proceed with the procedure Dr. Armijo explained to pt and family dennis hgb might continue to drop, ongoing bleeding, if endoscopy is not performed. We will continue PPI drip and octreotide Patient was started on Cipro per GI due to the history of cirrhosis Type and cross done and obtained consent from daughter/patient about blood transfusion We will transfuse 1 unit PRBC now and will place 2 unit on hold in case hemoglobin continued to drop We will continue monitor CBC every 6 hours 11/23/21 S/P 1 unit PRBC transfusion on 11/17/21 Hgb 9.7 today Case discussed with hospitalist Dr. Boland at [place] that was not able to accept her for transfer due to lack of bed available EGD done yesterday showed Grade I esophageal varices. Portal hypertensive gastropathy. No source of UGIB identified. It is possible that this is a LGIB (diverticula, AVM). Diet advance as tolerated Continue ASA 81 mg Continue to hold Plavix for an additional 5 days. (Plavix can resume on 11/24 if hemoglobin stable as per GI) OK to resume DVT prophylaxis with heparin as per GI Continue monitor H/H (3) Transaminitis: Plan: LFT worsening with AST 252, ALT 114 and Alk 240 Liver enzymes continue trending down with AST from 143 to 47--> 31 and ALT from 89 to 55--> 46 and Alk from 171 to 139 Will resume statin in a.m. Resolved (4) Thrombocytopenia: Plan: Platelet slightly increased to 76 today Possible related to the acute GI bleed, worsening liver enzymes, abx therapy Continue monitor cbc (5) Hypokalemia: Plan: Hypokalemia Possible related to IV lasix K 3.4 today K replaced Continue monitor BMP (6) Acute metabolic encephalopathy: Plan: 86yo F with a PMH of PAD s/p stent L subclavian, superior mesenteric artery, L iliac and fempop bypass, infrarenal AAA measuring 3.9 cm, HTN, HLD, CKD III, insulin dependent DM II, COPD, hypothyroidism, history of C. difficile in May 2021 and other medical problems who presents after unwitnessed fall with acute metabolic encephalopathy, sepsis and pneumonia. Initially resolved after sepsis resuscitation, however, she has become obtunded overnight. Multiple factors likely contributing with worsening hypoxia, hypernatremia, and ongoing infections-not an exhaustive list of contributing factors. CT head on admission showed no acute intracranial hemorrhage, no evidence of acute territorial infarction or other acute intracranial disease process. resolved (7) Pneumonia: (8) Hypoxia: Plan: Possible related to pneumonia initially, and developed fluid overload after resuscitation CT chest on admission showed right lower lobe consolidative opacities concerning for pneumonia and/or aspiration. COVID-19 PCR negative Influenza A/B negative RSV negative Procalcitonin: 39 --> 13 Initially was started on vanc and Zosyn. Out of concerns for EARL, changed Zosyn to cefepime. Sputum culture growing strep as well as MSSA Speech was consulted and reported no issues wtih aspiration on her examination and she initially improved on abx. Then further hypoxia is possibly 2/2 fluid overload after resuscitation efforts Repeat chest x-ray today showed pulmonary vascular congestion. Unchanged layering pleural effusions with bibasilar consolidation suggestive of atelectasis versus pneumonia. Currently on 5 L oxygen supplement via oxygen mask Completed the course of antibiotic with Unasyn Solumedrol was discontinued , then transition to PO Prednisone 40mg daily, will taper to 20 mg in a.m. Continue lasix 20mg IV BID (9) Atrial fibrillation with rapid ventricular response: Plan: New onset atrial fibrillation with RVR overnight in setting of pulmonary illness and possible fluid overload after resuscitation from sepsis. Currently on normal sinus rhythm with rate stable Cardiology on board ECHO showed LV function is well-preserved and no significant valvular pathology. No additional recommendations at this time. carvedilol on hold Bradycardia HR dropped btw 30 to 40 Asymptomatic Carvedilol 3.125 mg on hold due to bradycardia Continue monitor (10) UTI (urinary tract infection): Plan: Urine culture grew Enterococcus faecalis Received IV Vanco (11) Sepsis: Plan: Resuscitated. Cont antibiotics. (12) Abdominal pain: Plan: Initially was resolved, however, appeared to withdraw from pain during exam this morning. She is altered and on BIPAP, actively trying to remove her mask and with mitts on. She is not a reliable historian at this time. During this admission, in the setting of abdominal pain with cirrhosis, hyperbilirubinemia and cholelithiasis she was also seen by gastroenterology and surgery who felt no further workup or treatments were warranted. Her elevated total bilirubin and tender abdomen was thought to be possibly secondary to infection or sepsis versus decompensated cirrhosis. As this has improved with treatment of her infection and it was more likely the former. Defer further workup to ICU team as needed. CT also found that endometrium is abnormally thickened for age which will be not emergently evaluated with a pelvic ultrasound and AIRPLANE COVERER evaluation as outpatient. Currently denies abdominal pain (13) Hypertension: Plan: We will hold bp meds due to low hemoglobin from GI bleed Amlodipine d/c and carvedilol on hold continue monitor BP (14) Fall: Plan: Patient remembers falling out of her bed -likely related to weakness in setting of metabolic encephalopathy which is now clearing. Min CK elevation expected. Likely improved after IVF resuscitation. CT head, cervical spine CT, chest CT, pelvic XR without evidence of acute trauma or fracture. Cont with Fall precautions, PT OT evaluation (15) Acute kidney injury superimposed on chronic kidney disease: Plan: Cr elevated at 1.36 (baseline ~ 0.9) in setting of dehydration and sepsis. Creatinine 1.7 today Nephrology on board Continue monitor BMP while getting IV Lasix as needed Nephrology on board Case discussed with nephrology that recommended to continue lasix IV 20mg BID Continue monitor BMP while on IV Lasix (16) PAD (peripheral artery disease): Plan: chronic, stable. S/p stent L subclavian, superior mesenteric artery, L iliac and fempop bypass Follows with Dr. Andrade of vascular surgery in [place] Continue to hold aspirin, plavix, statin due to active GI bleed (17) Cirrhosis: Plan: Diagnosed in January 2021, [place], She is at risk for hypervolemia so we will be cautious with IV fluids. Possibly more hypervolemic now. Ammonia level was checked yesterday and was <10, so somnolence was not thought to be related to hepatic encephalopathy, however, this could be reassessed with declined mental status today. (18) DM II (diabetes mellitus, type II), controlled: Plan: A1c 9.4 reflecting poor overall control. Pharmacy on board for glycemic management Blood sugar elevated about 400, started on IV insulin drip Continue monitor blood sugar (19) COPD (chronic obstructive pulmonary disease): Plan: chronic, stable-no wheezing. Does not require O2 at baseline. Former smoker. Continue Anoro Ellipda, Albuterol inh PRN (20) Hypothyroidism: Plan: Continue levothyroxine per home regimen. (21) Thickened endometrium: Plan: Esophageal varices with a small volume of abdominal pelvic ascites and splenomegaly indicating portal hypertension is present. There is also wall thickening of the right colon with mild pericolic infiltration which could present a nonspecific colitis. She continues on antibiotics and would appreciate gastroenterology thoughts on this. Endometrium is abnormally thickened for age which will be not emergently evaluated with a pelvic ultrasound and AIRPLANE COVERER evaluation as outpatient. (22) Aneurysm of infrarenal abdominal aorta: Plan: incidental finding on CT scan. Follow-up as outpatient for monitoring. (23) DVT prophylaxis: Plan: DVT Ppx: Heparin on hold due to active GI bleed Code status: DNR Dispo Continue to monitor closely Admission and Anticipated Discharge Date Admission Date: November 08, 2021 Subjective Pt was seen and examined for follow up of anemia and SOB Lying in bed with no acute distress resting Pt said that she feels very tired She said that she cannot keep her eyes opened Currently she is on 5L NS oxygen Denies been chest pain, palpitation, dizziness and fever Review of Systems Review of Systems: All systems reviewed & are unremarkable except as noted in Subjective Physical Exam Physical Exam: General-No acute distress Head- atraumatic Eyes- PERRL, EOMI, ENT- oropharynx clear Neck- supple, no JVD Lungs- +diminished breath sounds Heart- regular rhythm; no murmur Abdomen- normal bowel sounds,nontender Extremities- no calf tenderness Neuro- alert, awake and oriented, PERRL, no facial palsy; no dysarthria Skin- warm & dry Results & Data Results & Data ([facility]) Vital Signs (Past 12 Hours) Vital Signs Temp Pulse Pulse Resp BP Pulse Ox 11/23/21 12:18 69 20 93 11/23/21 11:36 36.4 C L 54 L 16 119/65 93 11/23/21 08:03 36.6 C 52 L 20 145/65 H 98 11/23/21 08:00 43 L 11/23/21 07:30 45 L 18 88 L 11/23/21 04:18 36.7 C 52 L 18 110/75 92 (1) Anemia Anemia type: unspecified type Qualified Code(s): D64.9 - Anemia, unspecified (2) Pneumonia Laterality: right Lung location: unspecified part of lung Pneumonia type: due to unspecified organism Qualified Code(s): J18.9 - Pneumonia, unspecified organism
[2021-11-23] MEDS: HYDROCORTISONE 1% CRM 30 GM TUBE EXT SCH (17:10)
[2021-11-23] MEDS ORDERED: INSULIN HUMAN REGULAR PER UNIT 7 UNITS in SYRINGE 6.93 ML IV ONE (17:15)
[2021-11-23] MEDS ORDERED: STAT IV Infusion **Titration per Protocol STA (20:40)
[2021-11-23] MEDS ORDERED: INSULIN REGULAR 250 UNITS in SODIUM CHLORIDE 0.9% 247.5 ML IV SCH (20:45)
[2021-11-23] MEDS ORDERED: INSULIN HUMAN REGULAR PER UNIT 2.5 UNITS in SYRINGE 2.475 ML IV ONE (20:45)
[2021-11-23] MEDS ORDERED: INSULIN ASPART PER UNIT SC SCH (21:00)
[2021-11-23] MEDS: GABAPENTIN 300 MG CAP PO SCH (22:07)
[2021-11-24] MEDS: IPRATROPIUM BROMIDE NEB SOLN 0.02% 2.5 ML VIAL INH SCH ×3 (00:23→20:40)
[2021-11-24] MEDS: LEVALBUTEROL 1.25MG/0.5ML NEB INH SCH ×3 (00:23→20:41)
[2021-11-24] MEDS: LOPERAMIDE HCL 2 MG CAP PO PRN ×3 (00:36→18:13)
[2021-11-24] MEDS ORDERED: INSULIN ASPART PER UNIT SC SCH (04:00)
[2021-11-24] MEDS ORDERED: INSULIN ASPART PER UNIT SC ONE (06:00)
[2021-11-24] MEDS: LEVOTHYROXINE SODIUM 88 MCG TABLET PO SCH (06:01)
[2021-11-24 06:07] LABS: Hematocrit (blood only) 28.5 % (37-47); Hemoglobin 9.2 g/dL (12.0-16.0); Mean Corpuscular Hemoglobin 28.6 pg (25-34); Mean Corpuscular Hgb Conc 32.3 g/dL (32-36); Mean Corpuscular Volume 88.5 fL (80-100); Platelet Count 74 K/uL (130-400); RDW Coefficient of Variation 20.7 % (11.5-14.5); RDW Standard Deviation 65.4 fL (36.4-46.3); Red Blood Count 3.22 M/uL (4.2-5.4); White Blood Count 11.34 K/uL (4.8-10.8)
[2021-11-24 06:45] LABS: BUN Creatinine Ratio 57.6 (10-20); Calcium 8.4 mg/dl (8.5-10.1); Creatinine Clr Calc Pharmacy 23.1 ml/min; Est GFR (African American) 34.2 ml/min; Est GFR (Non-African American) 29.5 ml/min
[2021-11-24] MEDS: PANTOprazole 40 MG TAB PO SCH (07:54)
[2021-11-24] MEDS: ASPIRIN 81 MG ECTAB PO SCH (07:54)
[2021-11-24] MEDS: predniSONE 20 MG TAB PO SCH (07:54)
[2021-11-24] MEDS: ATORVASTATIN 20 MG TAB PO SCH (07:55)
[2021-11-24] MEDS: HYDROCORTISONE 1% CRM 30 GM TUBE EXT SCH ×2 (07:57→20:32)
[2021-11-24] MEDS: INSULIN HUMAN NPH SC SCH (07:57)
[2021-11-24] MEDS: HEPARIN SOD 5,000 UNIT/0.5 ML VIAL SQ SCH ×2 (07:58→20:32)
[2021-11-24] MEDS: INSULIN ASPART PER UNIT SC SCH ×4 (08:02→20:41)
[2021-11-24] MEDS: FUROSEMIDE INJ 20 MG/2 ML VIAL IV SCH ×2 (08:09→20:47)
[2021-11-24] MEDS: UMECLIDINIUM/VILANTEROL 62.5/25MCG 7 PUFFS/INHALER INH SCH (08:14)
--- NOTE | 2021-11-24 08:52 | Pharmacy Report ---
Pharmacy Glycemic Short Note 2 - Date of Service November 24, 2021 - Glycemic Short BSG Results (Last 24 hours): 11/23/21 11/23/21 11/23/21 16:38 16:39 20:13 Glucose POC Glucose 427 H* 440 H* 536 H* 11/23/21 11/23/21 11/23/21 20:14 20:16 20:27 Glucose 304 H* POC Glucose 401 H* 374 H* 11/23/21 11/24/21 11/24/21 23:06 00:05 01:16 Glucose POC Glucose 202 H 164 H 110 H 11/24/21 11/24/21 11/24/21 02:45 04:21 05:19 Glucose 73 POC Glucose 95 80 11/24/21 11/24/21 11/24/21 05:23 07:22 07:33 Glucose POC Glucose 85 117 H 124 H OUTPATIENT ANTIDIABETIC REGIMEN: * Tresiba 15 units Q AM * Sitagliptin 100mg PO daily * A1c = 9.4% 11/09/21 ASSESSMENT: 11/24: * BSGs unexpectedly trended very high yesterday evening, 108, 120, 440, 374 mg/dL * Insulin infusion was initiated, but titrated off fairly quickly with resolution of BSGs * Fasting BSG of 117 mg/dL this morning * Will plan to increase NPH to full 0.4 unit/kg dose with prednisone, tighten Novolog carb coverage 11/22: * BSGs elevated throughout the day yesterday, 95, 222, 294, 283, and 223 mg/dL * Received 114 units of insulin (significantly weighted towards bolus insulin, only 16 units of Lantus given) * Steroids changed to prednisone 40 mg PO daily starting yesterday * Will change Lantus to NPH today given low fasting BSGs and to more closely mimic kinetics of prednisone (hopefully control BSGs throughout the day) 11/21: * Blood sugars continued to escalate last evening, insulin drip started and ran ~8 hours, blood sugar at goal this morning and insulin drip on hold since 0200, DC drip and resume basal bolus insulin * Steroids changed to Prednisone 40mg PO Daily * Unasyn discontinued, mixed in dextrose * Consider changing from Lantus to NPH tomorrow to cover steroid effects if steroids continue and blood sugars remain uncontrolled, too late to change today * Tighten CR for better steroid coverage, which effects post-prandial blood sugars most 11/20: * Blood sugars well controlled until starting Solu-Medrol 40mg IV Q8H last evening, now blood sugars in 200s. * Will place NovoLog protocol on hold, as patient is hyperglycemic now and patient responded similarly when steroids were given on 11/16. * NovoLog CF + CR q4h, start at 1400 today 11/12 * Type 2 diabetic admitted for sepsis secondary to multifocal pneumonia, UTI * Patient has been transferred to ICU * Nephrology has ordered dextrose containing IVFs (D5W + 50mEq Bicarb + 40mEq K Tom) to run at 125cc/hr for metabolic acidosis, hypernatremia. * BSGs had been well controlled until yesterday afternoon, suspect deterioration in control was secondary to dextrose provision in IVs used to provide free water. * Plan to continue with scaled Lantus dosing BID in current dose as she has required little basal insulin this admission due to poor PO intake * Plan to adjust NovoLog dosing to Q 4 hrs, provide a scheduled dose of NovoLog while in goal range on dextrose containing fluids to help cover the 25gm carbs provided every 4 hours. This scale can be converted back to traditional CF/CR dosing when dextrose containing IVFs d/c'd or rate reduced PLAN FOR INPATIENT GLYCEMIC CONTROL: * Hold outpatient oral diabetes medications (sitagliptin) * Basal insulin - increase * NPH 30 units SC daily with prednisone 40 mg PO daily * Bolus insulin * Correctional Insulin: Novolog Correction per scale ACHS Goal Range: Low 110 mg/dL - High 140 mg/dL Correction Factor: 10 mg/dL/unit * Prandial insulin: Per carb ratio of 1 unit per 2.5 grams CHO consumed PLAN FOR DISCHARGE: * HbA1c of 9.4% suggests poor outpatient glycemic control * Goal of less than 8% is likely reasonable for patient based on age/comorbidities with focus on minimizing hypoglycemia * Unfortunately, most of our inpatient BSG data has been while patient has been on steroids * Patient has had EARL superimposed on CKD, if new baseline eGFR is reduced, then may need to decrease dose of sitagliptin * eGFR: 30-44 mL/min/1.73 m2 - decrease to sitagliptin 50 mg PO daily * eGFR < 30 mL/min/1.73 m2 - decrease to sitagliptin 25 mg PO daily * Based on initial BSG data while off steroids, Tresiba 15 units SC daily seems reasonable
--- NOTE | 2021-11-24 11:50 | Nephrology Progress Note ---
Date of Service November 24, 2021 Assessment & Plan (1) Acute kidney injury superimposed on chronic kidney disease: Plan: Acute kidney injury on CKD from ischemic ATN in setting of hypotension, GI bleed and bradycardia. Baseline creatinine prior to admission 1.0, CKD 3A. Creatinine is plateau'd mid ones; peak value 2.0 on 11/19; presenting value 1.3 -Avoid hypotension. Holding amlodipine and Coreg which should continue; stopped prn metoprolol and hydrlazine as not recently used. -Daily BMP -Avoid nephrotoxin -Monitor input output -Okay to continue Lasix 20 mg IV twice daily for now Admission and Anticipated Discharge Date Admission Date: November 08, 2021 Subjective no interval events. feels breathing continues slow improvement but still w/ cough, 02 needs Review of Systems Review of Systems: All systems reviewed & are unremarkable except as noted in Subjective Physical Exam Constitutional: well developed and well nourished; no acute distress Eyes: EOM intact bilaterally ENMT: Ears: no external ear abnormality Nose: no external nose abnormality Mouth: + dry oral mucous membranes Neck: no nuchal rigidity Respiratory: normal respiratory effort Auscultation: + diminished lung sounds (herlinda BL bases) Cardiovascular: RRR, no murmur, no edema Gastrointestinal (Abdomen): Inspection/Auscultation: normal bowel sounds Percussion/Palpation: abdomen soft and + fluid wave; abdomen nontender Musculoskeletal: Extremities: strength 5/5 throughout Skin: no rashes, warm and dry Neurologic: shay, fluent speech, no tremor but does seem confused Psychiatric: A+Ox3, euthymic affect Results & Data ([facility]) Vital Signs (Past 12 Hours) Vital Signs Temp Pulse Pulse Pulse Resp BP Pulse Ox 11/24/21 08:00 47 L 11/24/21 07:28 47 L 20 94 11/24/21 07:19 37.2 C 48 L 18 137/56 L 94 11/24/21 00:23 61 18 91 11/23/21 23:59 36.5 C 65 61 18 124/76 92 Laboratory Results 11/24/21 05:19 11/24/21 05:19
--- NOTE | 2021-11-24 15:26 | Hospitalist Progress Note ---
Date of Service November 24, 2021 Assessment & Plan (1) GI bleed: (2) Anemia: Plan: Patient had 3 episode of maroon-colored bowel movement today Hemoglobin dropped from 11 yesterday to 7.1 today GI was notified about the drop in hemoglobin and GI bleed Dr. Armijo discussed the case with daughter, patient and son about EGD Patient will need to get intubated due to respiratory status for the EGD and will remain intubating after the procedure as per anesthesiologist Patient does not want to get intubated for the procedure and pt decided not to proceed with the procedure Dr. Armijo explained to pt and family dennis hgb might continue to drop, ongoing bleeding, if endoscopy is not performed. We will continue PPI drip and octreotide Patient was started on Cipro per GI due to the history of cirrhosis Type and cross done and obtained consent from daughter/patient about blood transfusion We will transfuse 1 unit PRBC now and will place 2 unit on hold in case hemoglobin continued to drop We will continue monitor CBC every 6 hours 11/23/21 S/P 1 unit PRBC transfusion on 11/17/21 Hgb 9.7 today Case discussed with hospitalist Dr. Boland at [facility] that was not able to accept her for transfer due to lack of bed available EGD done yesterday showed Grade I esophageal varices. Portal hypertensive gastropathy. No source of UGIB identified. It is possible that this is a LGIB (diverticula, AVM). Diet advance as tolerated Continue ASA 81 mg Continue to hold Plavix for an additional 5 days. (Plavix can resume on 11/24 if hemoglobin stable as per GI) OK to resume DVT prophylaxis with heparin as per GI 11/24/2021 Has been feeling much better today Hemoglobin remains stable at 9.2 We will start Plavix from tomorrow-awaiting placement (3) Transaminitis: Plan: LFT worsening with AST 252, ALT 114 and Alk 240 Liver enzymes continue trending down with AST from 143 to 47--> 31 and ALT from 89 to 55--> 46 and Alk from 171 to 139 Will resume statin in a.m. Resolved (4) Thrombocytopenia: Plan: Platelet slightly increased to 76 today Possible related to the acute GI bleed, worsening liver enzymes, abx therapy Continue monitor cbc Due to cirrhosis (5) Hypokalemia: Plan: Hypokalemia Possible related to IV lasix K 3.4 today K replaced Continue monitor BMP-potassium is normalized (6) Acute metabolic encephalopathy: Plan: 86yo F with a PMH of PAD s/p stent L subclavian, superior mesenteric artery, L iliac and fempop bypass, infrarenal AAA measuring 3.9 cm, HTN, HLD, CKD III, insulin dependent DM II, COPD, hypothyroidism, history of C. difficile in May 2021 and other medical problems who presents after unwitnessed fall with acute metabolic encephalopathy, sepsis and pneumonia. Initially resolved after sepsis resuscitation, however, she has become obtunded overnight. Multiple factors likely contributing with worsening hypoxia, hypernatremia, and ongoing infections-not an exhaustive list of contributing factors. CT head on admission showed no acute intracranial hemorrhage, no evidence of acute territorial infarction or other acute intracranial disease process. resolved (7) Pneumonia: (8) Hypoxia: Plan: Possible related to pneumonia initially, and developed fluid overload after resuscitation CT chest on admission showed right lower lobe consolidative opacities concerning for pneumonia and/or aspiration. COVID-19 PCR negative Influenza A/B negative RSV negative Procalcitonin: 39 --> 13 Initially was started on vanc and Zosyn. Out of concerns for EARL, changed Zosyn to cefepime. Sputum culture growing strep as well as MSSA Speech was consulted and reported no issues wtih aspiration on her examination and she initially improved on abx. Then further hypoxia is possibly 2/2 fluid overload after resuscitation efforts Repeat chest x-ray today showed pulmonary vascular congestion. Unchanged laye ring pleural effusions with bibasilar consolidation suggestive of atelectasis versus pneumonia. Currently on 5 L oxygen supplement via oxygen mask Completed the course of antibiotic with Unasyn Solumedrol was discontinued , then transition to PO Prednisone 40mg daily, will taper to 20 mg in a.m. Continue lasix 20mg IV BID Clinically much better and awaiting placement (9) Atrial fibrillation with rapid ventricular response: Plan: New onset atrial fibrillation with RVR overnight in setting of pulmonary illness and possible fluid overload after resuscitation from sepsis. Currently on normal sinus rhythm with rate stable Cardiology on board ECHO showed LV function is well-preserved and no significant valvular pathology. No additional recommendations at this time. carvedilol on hold Bradycardia HR dropped btw 30 to 40 Asymptomatic Carvedilol 3.125 mg on hold due to bradycardia Continue monitor -will not restart carvedilol as long as heart rate remains low as per returning officer (10) UTI (urinary tract infection): Plan: Urine culture grew Enterococcus faecalis Received IV Vanco (11) Sepsis: Plan: Resuscitated. Cont antibiotics. (12) Abdominal pain: Plan: Initially was resolved, however, appeared to withdraw from pain during exam this morning. She is altered and on BIPAP, actively trying to remove her mask and with mitts on. She is not a reliable historian at this time. During this admission, in the setting of abdominal pain with cirrhosis, hyperbilirubinemia and cholelithiasis she was also seen by gastroenterology and surgery who felt no further workup or treatments were warranted. Her elevated total bilirubin and tender abdomen was thought to be possibly secondary to infection or sepsis versus decompensated cirrhosis. As this has improved with treatment of her infection and it was more likely the former. Defer further workup to ICU team as needed. CT also found that endometrium is abnormally thickened for age which will be not emergently evaluated with a pelvic ultrasound and STAGE DRIVER evaluation as outpatient. Currently denies abdominal pain (13) Hypertension: Plan: We will hold bp meds due to low hemoglobin from GI bleed Amlodipine d/c and carvedilol on hold continue monitor BP (14) Fall: Plan: Patient remembers falling out of her bed -likely related to weakness in setting of metabolic encephalopathy which is now clearing. Min CK elevation expected. Likely improved after IVF resuscitation. CT head, cervical spine CT, chest CT, pelvic XR without evidence of acute trauma or fracture. Cont with Fall precaut ions, PT OT evaluation Awaiting rehab placement (15) Acute kidney injury superimposed on chronic kidney disease: Plan: Cr elevated at 1.36 (baseline ~ 0.9) in setting of dehydration and sepsis. Creatinine 1.7 today Nephrology on board Continue monitor BMP while getting IV Lasix as needed Nephrology on board -appreciate input and recommendation Case discussed with nephrology that recommended to continue lasix IV 20mg BID Continue monitor BMP while on IV Lasix (16) PAD (peripheral artery disease): Plan: chronic, stable. S/p stent L subclavian, superior mesenteric artery, L iliac and fempop bypass Follows with Dr. Andrade of vascular surgery in [place] Continue to hold aspirin, plavix, statin due to active GI bleed (17) Cirrhosis: Plan: Diagnosed in January 2021, [place], She is at risk for hypervolemia so we will be cautious with IV fluids. Possibly more hypervolemic now. Ammonia level was checked yesterday and was <10, so somnolence was not thought to be related to hepatic encephalopathy, however, this could be reassessed with declined mental status today. (18) DM II (diabetes mellitus, type II), controlled: Plan: A1c 9.4 reflecting poor overall control. Pharmacy on board for glycemic management Blood sugar elevated about 400, started on IV insulin drip Continue monitor blood sugar (19) COPD (chronic obstructive pulmonary disease): Plan: chronic, stable-no wheezing. Does not require O2 at baseline. Former smoker. Continue Anoro Ellipda, Albuterol inh PRN (20) Hypothyroidism: Plan: Continue levothyroxine per home regimen. (21) Thickened endometrium: Plan: Esophageal varices with a small volume of abdominal pelvic ascites and splenomegaly indicating portal hypertension is present. There is also wall thickening of the right colon with mild pericolic infiltration which could present a nonspecific colitis. She continues on antibiotics and would appreciate gastroenterology thoughts on this. Endometrium is abnormally thickened for age which will be not emergently evaluated with a pelvic ultrasound and STAGE DRIVER evaluation as outpatient. (22) Aneurysm of infrarenal abdominal aorta: Plan: incidental finding on CT scan. Follow-up as outpatient for monitoring. (23) DVT prophylaxis: Plan: DVT Ppx: Heparin on hold due to active GI bleed Code status: DNR Dispo Continue to monitor closely Admission and Anticipated Discharge Date Admission Date: November 08, 2021 Subjective 11/24/2021 The patient was seen and examined in telemetry unit She complains to have some discomfort in the neck at the site of central line Denies any fever and or chills Complains to have some diarrhea without any abdominal pain, nausea and or vomiti ng Review of Systems Review of Systems: All systems reviewed and are unremarkable as noted below Neurologic: Generalized weakness but no focal neurodeficit Physical Exam Physical Exam: Lying in bed comfortably Constitutional: average body habitus; not ill appearing Eyes: PERRL, conjunctivae normal, anicteric sclerae ENMT: external ear and nose normal, oropharynx normal Neck: trachea midline, no thyromegaly Respiratory: no respiratory distress Auscultation: + diminished lung sounds and + crackles (Minimal crackles at the bases) Cardiovascular: Rate/Rhythm: regular rate, regular rhythm and + bradycardic Heart Sounds: normal S1 and normal S2; no murmur Extremities: no edema Gastrointestinal (Abdomen): Inspection/Auscultation: normal bowel sounds; abdomen not distended Percussion/Palpation: abdomen soft; abdomen nontender Musculoskeletal: No acute arthritis in any joint Neurologic: Alert, awake and oriented x3. Generally weak Results & Data Results & Data ([facility]) Vital Signs (Past 12 Hours) Vital Signs Temp Pulse Pulse Pulse Resp BP Pulse Ox 11/24/21 08:00 47 L 11/24/21 07:28 47 L 20 94 11/24/21 07:19 37.2 C 48 L 18 137/56 L 94 Laboratory Results Short CBC 11/24/21 Range/Units 05:19 WBC 11.34 H (4.8-10.8) K/uL Hgb 9.2 L (12.0-16.0) g/dL Hct 28.5 L (37-47) % Plt Count 74 L (130-400) K/uL BMP 11/23/21 11/24/21 20:27 05:19 Sodium 141 Potassium 4.0 Chloride 107 Carbon Dioxide 27 BUN 91 H Creatinine 1.58 H Glucose 304 H* 73 Calcium 8.4 L Medications Administered Current Inpatient Medications Acetaminophen (Acetaminophen 325 Mg Tab) 650 mg PO Q4H PRN PRN Reason: Pain or Fever Stop: 12/08/21 22:37 Last Admin: 11/14/21 14:05 Dose: 650 mg Documented by: Albuterol (Albuterol Hfa 8 Gm Inhaler) 2 puffs INH Q4H PRN PRN Reason: Wheezing Stop: 12/08/21 22:37 Aspirin (Aspirin 81 Mg Ectab) 81 mg PO [facility] Stop: 12/09/21 08:59 Last Admin: 11/24/21 07:54 Dose: 81 mg Documented by: Atorvastatin Calcium (Atorvastatin 20 Mg Tab) [facility] [place] Stop: 12/09/21 08:59 Last Admin: 11/24/21 07:55 Dose: 20 mg Documented by: Carvedilol (Carvedilol 3.125 Mg Tab) 3.125 mg PO BID [facility] Stop: 12/19/21 20:59 Last Admin: 11/20/21 08:30 Dose: Not Given Documented by: Clopidogrel Bisulfate (Clopidogrel Bisulfate 75 Mg Tab) 75 mg PO QAM [facility] Stop: 12/09/21 08:59 Last Admin: 11/17/21 08:47 Dose: 75 mg Documented by: Dextrose (Dextrose 50% 50 Ml Syringe) 25 - 50 ml IV UD PRN; Protocol PRN Reason: Hypoglycemia Protocol Stop: 12/08/21 22:17 Furosemide (Furosemide Inj 20 Mg/2 Ml Vial) 20 mg IV BID AAKASH Stop: 12/21/21 11:14 Last Admin: 11/24/21 08:09 Dose: 20 mg Documented by: Gabapentin (Gabapentin 300 Mg Cap) 300 mg PO HS [facility] Stop: 12/13/21 20:59 Last Admin: 11/23/21 22:07 Dose: 300 mg Documented by: Glucagon (Glucagon For Inj 1 Mg Vial) 1 mg SQ UD PRN; Protocol PRN Reason: Hypoglycemia Protocol Stop: 12/08/21 22:17 Glucose (Glucose 10 Tabs/Tube) 4 - 8 tabs PO UD PRN; Protocol PRN Reason: Hypoglycemia Protocol Stop: 12/08/21 22:17 Glucose (Glucose 40% Gel 15 Gm Tube) 15 - 30 gm PO UD PRN; Protocol PRN Reason: Hypoglycemia Protocol Stop: 12/08/21 22:17 Heparin Sodium (Porcine) (Heparin Sod 5,000 Unit/0.5 Ml Vial) 5,000 units SQ Q12 AAKASH Stop: 12/21/21 08:59 Last Admin: 11/24/21 07:58 Dose: 5,000 units Documented by: Hydrocortisone (Hydrocortisone 1% Crm 30 Gm Tube) 1 appln EXT BID AAKASH Stop: 12/23/21 15:59 Last Admin: 11/24/21 07:57 Dose: Not Given Documented by: Insulin Aspart (Insulin Aspart Per Unit) 0 units SC ACHS [facility]; Protocol Stop: 12/24/21 03:59 Last Admin: 11/24/21 12:42 Dose: 17 units Documented by: Insulin Human NPH (Insulin Human Nph) 30 units SC DAILY [facility] Stop: 12/24/21 08:59 Last Admin: 11/24/21 07:57 Dose: 30 units Documented by: Ipratropium [place] (Ipratropium [place] Neb Soln 0.02% 2.5 Ml Vial) 0.5 mg INH Q4H PRN PRN Reason: SOB, WHEEZE Stop: 12/09/21 02:44 Ipratropium [place] (Ipratropium [place] Neb Soln 0.02% 2.5 Ml Vial) 0.5 mg INH BIDR [facility] Stop: 12/24/21 18:59 Levalbuterol HCl (Levalbuterol 1.25mg/0.5ml Neb) 1.25 mg INH Q4H PRN PRN Reason: SOB, WHEEZE Stop: 12/09/21 02:44 Levalbuterol HCl (Levalbuterol 1.25mg/0.5ml Neb) 1.25 mg INH BIDR [facility] Stop: 12/24/21 18:59 Levothyroxine Sodium (Levothyroxine Sodium 88 Mcg Tablet) 88 mcg PO DAILYBB [facility] Stop: 12/16/21 06:29 Last Admin: 11/24/21 06:01 Dose: 88 mcg Documented by: Loperamide HCl (Loperamide Hcl 2 Mg Cap) 2 mg PO UD PRN PRN Reason: Diarrhea Stop: 12/23/21 20:45 Last Admin: 11/24/21 08:09 Dose: 2 mg Documented by: Miscellaneous (Carbohydrates For Hypoglycemia ) 15 - 30 gm PO UD PRN PRN Reason: Hypoglycemia Protocol Stop: 12/08/21 22:17 Miscellaneous Information (Pharmacy Glycemic Mgmt Consult) 1 ea N/A UD PRN PRN Reason: Consult Stop: 12/12/21 10:49 Ondansetron HCl (Ondansetron Inj 2 Mg/Ml 2 Ml Vial) 4 mg IV Q6H PRN PRN Reason: Nausea Stop: 12/08/21 22:37 Pantoprazole Sodium (Pantoprazole 40 Mg Tab) 40 mg PO QAM [facility] Stop: 12/20/21 08:59 Last Admin: 11/24/21 07:54 Dose: 40 mg Documented by: Polyethylene Glycol (Polyethylene (Miralax) 17 Gm Pack) 17 gm PO DAILY PRN PRN Reason: Constipation Stop: 12/08/21 22:37 Prednisone (Prednisone 20 Mg Tab) 40 mg PO DAILY [facility] Stop: 12/21/21 08:59 Last Admin: 11/24/21 07:54 Dose: 40 mg Documented by: Umeclidinium/Vilanterol (Umeclidinium/Vilanterol 62.5/25mcg 7 Puffs/Inhaler) 1 puffs INH DAILY AAKASH Stop: 12/09/21 08:59 Last Admin: 11/24/21 08:14 Dose: 1 puffs Documented by: Zinc Acetate/Diphenhydramine (Diphenhydramine 2%/Zinc 0.1% Cream 28gm Tube) 1 appln EXT QID PRN PRN Reason: itchy skin Stop: 12/23/21 20:46 (1) Anemia Anemia type: unspecified type Qualified Code(s): D64.9 - Anemia, unspecified (2) Pneumonia Laterality: right Lung location: unspecified part of lung Pneumonia type: due to unspecified organism Qualified Code(s): J18.9 - Pneumonia, unspecified organism
[2021-11-24] MEDS: GABAPENTIN 300 MG CAP PO SCH (20:32)
[2021-11-25] MEDS: LEVOTHYROXINE SODIUM 88 MCG TABLET PO SCH (06:19)
[2021-11-25] MEDS: LEVALBUTEROL 1.25MG/0.5ML NEB INH SCH ×3 (07:10→23:35)
[2021-11-25] MEDS: IPRATROPIUM BROMIDE NEB SOLN 0.02% 2.5 ML VIAL INH SCH ×3 (07:11→23:35)
[2021-11-25] MEDS: UMECLIDINIUM/VILANTEROL 62.5/25MCG 7 PUFFS/INHALER INH SCH (09:37)
[2021-11-25] MEDS: HEPARIN SOD 5,000 UNIT/0.5 ML VIAL SQ SCH ×2 (09:38→22:13)
[2021-11-25] MEDS: CLOPIDOGREL BISULFATE 75 MG TAB PO SCH (09:39)
[2021-11-25] MEDS: ATORVASTATIN 20 MG TAB PO SCH (09:39)
[2021-11-25] MEDS: predniSONE 20 MG TAB PO SCH (09:39)
[2021-11-25] MEDS: ASPIRIN 81 MG ECTAB PO SCH (09:39)
[2021-11-25] MEDS: PANTOprazole 40 MG TAB PO SCH (09:39)
[2021-11-25] MEDS: INSULIN HUMAN NPH SC SCH (09:46)
[2021-11-25] MEDS: INSULIN ASPART PER UNIT SC SCH ×4 (09:46→22:00)
[2021-11-25] MEDS: FUROSEMIDE INJ 20 MG/2 ML VIAL IV SCH ×2 (09:57→22:18)
[2021-11-25] MEDS: HYDROCORTISONE 1% CRM 30 GM TUBE EXT SCH ×2 (11:00→22:18)
--- NOTE | 2021-11-25 15:25 | Hospitalist Progress Note ---
Date of Service November 25, 2021 Assessment & Plan (1) GI bleed: (2) Anemia: Plan: Patient had 3 episode of maroon-colored bowel movement today Hemoglobin dropped from 11 yesterday to 7.1 today GI was notified about the drop in hemoglobin and GI bleed Dr. Armijo discussed the case with daughter, patient and son about EGD Patient will need to get intubated due to respiratory status for the EGD and will remain intubating after the procedure as per anesthesiologist Patient does not want to get intubated for the procedure and pt decided not to proceed with the procedure Dr. Armijo explained to pt and family dennis hgb might continue to drop, ongoing bleeding, if endoscopy is not performed. We will continue PPI drip and octreotide Patient was started on Cipro per GI due to the history of cirrhosis Type and cross done and obtained consent from daughter/patient about blood transfusion We will transfuse 1 unit PRBC now and will place 2 unit on hold in case hemoglobin continued to drop We will continue monitor CBC every 6 hours 11/23/21 S/P 1 unit PRBC transfusion on 11/17/21 Hgb 9.7 today Case discussed with hospitalist Dr. Boland at [place] that was not able to accept her for transfer due to lack of bed available EGD done yesterday showed Grade I esophageal varices. Portal hypertensive gastropathy. No source of UGIB identified. It is possible that this is a LGIB (diverticula, AVM). Diet advance as tolerated Continue ASA 81 mg Continue to hold Plavix for an additional 5 days. (Plavix can resume on 11/24 if hemoglobin stable as per GI) OK to resume DVT prophylaxis with heparin as per GI 11/24/2021 Has been feeling much better today Hemoglobin remains stable at 9.2 We will start Plavix from tomorrow-awaiting placement Remains medically stable and ready to be transferred (3) Transaminitis: Plan: LFT worsening with AST 252, ALT 114 and Alk 240 Liver enzymes continue trending down with AST from 143 to 47--> 31 and ALT from 89 to 55--> 46 and Alk from 171 to 139 Will resume statin in a.m. Resolved (4) Thrombocytopenia: Plan: Platelet slightly increased to 76 today Possible related to the acute GI bleed, worsening liver enzymes, abx therapy Continue monitor cbc Due to cirrhosis (5) Hypokalemia: Plan: Hypokalemia Possible related to IV lasix K 3.4 today K replaced Continue monitor BMP-potassium is normalized (6) Acute metabolic encephalopathy: Plan: 86yo F with a PMH of PAD s/p stent L subclavian, superior mesenteric artery, L iliac and fempop bypass, infrarenal AAA measuring 3.9 cm, HTN, HLD, CKD III, in sulin dependent DM II, COPD, hypothyroidism, history of C. difficile in May 2021 and other medical problems who presents after unwitnessed fall with acute metabolic encephalopathy, sepsis and pneumonia. Initially resolved after sepsis resuscitation, however, she has become obtunded overnight. Multiple factors likely contributing with worsening hypoxia, hypernatremia, and ongoing infections-not an exhaustive list of contributing factors. CT head on admission showed no acute intracranial hemorrhage, no evidence of acute territorial infarction or other acute intracranial disease process. resolved (7) Pneumonia: (8) Hypoxia: Plan: Possible related to pneumonia initially, and developed fluid overload after resuscitation CT chest on admission showed right lower lobe consolidative opacities concerning for pneumonia and/or aspiration. COVID-19 PCR negative Influenza A/B negative RSV negative Procalcitonin: 39 --> 13 Initially was started on vanc and Zosyn. Out of concerns for EARL, changed Zosyn to cefepime. Sputum culture growing strep as well as MSSA Speech was consulted and reported no issues wtih aspiration on her examination and she initially improved on abx. Then further hypoxia is possibly 2/2 fluid overload after resuscitation efforts Repeat chest x-ray today showed pulmonary vascular congestion. Unchanged layering pleural effusions with bibasilar consolidation suggestive of atelectasis versus pneumonia. Currently on 5 L oxygen supplement via oxygen mask Completed the course of antibiotic with Unasyn Solumedrol was discontinued , then transition to PO Prednisone 40mg daily, will taper to 20 mg in a.m. Continue lasix 20mg IV BID Clinically much better and awaiting placement We will continue with oral Lasix on discharge (9) Atrial fibrillation with rapid ventricular response: Plan: New onset atrial fibrillation with RVR overnight in setting of pulmonary illness and possible fluid overload after resuscitation from sepsis. Currently on normal sinus rhythm with rate stable Cardiology on board ECHO showed LV function is well-preserved and no significant valvular pathology. No additional recommendations at this time. carvedilol on hold Bradycardia HR dropped btw 30 to 40 Asymptomatic Carvedilol 3.125 mg on hold due to bradycardia Continue monitor -will not restart carvedilol as long as heart rate remains low as per cold molding press operator (10) UTI (urinary tract infection): Plan: Urine culture grew Enterococcus faecalis Received IV Vanco (11) Sepsis: Plan: Resuscitated. Cont antibiotics. (12) Abdominal pain: Plan: Initially was resolved, however, appeared to withdraw from pain during exam this morning. She is altered and on BIPAP, actively trying to remove her mask and with mitts on. She is not a reliable historian at this time. During this admission, in the setting of abdominal pain with cirrhosis, hyperbilirubinemia and cholelithiasis she was also seen by gastroenterology and surgery who felt no further workup or treatments were warranted. Her elevated total bilirubin and tender abdomen was thought to be possibly secondary to infection or sepsis versus decompensated cirrhosis. As this has improved with treatment of her infection and it was more likely the former. Defer further workup to ICU team as needed. CT also found that endometrium is abnormally thickened for age which will be not emergently evaluated with a pelvic ultrasound and MINE ENGINEERING MANAGER evaluation as outpatient. Currently denies abdominal pain (13) Hypertension: Plan: We will hold bp meds due to low hemoglobin from GI bleed Amlodipine d/c and carvedilol on hold continue monitor BP (14) Fall: Plan: Patient remembers falling out of her bed -likely related to weakness in setting of metabolic encephalopathy which is now clearing. Min CK elevation expected. Likely improved after IVF resuscitation. CT head, cervical spine CT, chest CT, pelvic XR without evidence of acute trauma or fracture. Cont with Fall precautions, PT OT evaluation Awaiting rehab placement (15) Acute kidney injury superimposed on chronic kidney disease: Plan: Cr elevated at 1.36 (baseline ~ 0.9) in setting of dehydration and sepsis. Creatinine 1.7 today Nephrology on board Continue monitor BMP while getting IV Lasix as needed Nephrology on board -appreciate input and recommendation Case discussed with nephrology that recommended to continue lasix IV 20mg BID Continue monitor BMP while on IV Lasix We will check PRP tomorrow (16) PAD (peripheral artery disease): Plan: chronic, stable. S/p stent L subclavian, superior mesenteric artery, L iliac and fempop bypass Follows with Dr. Andrade of vascular surgery in [place] Continue to hold aspirin, plavix, statin due to active GI bleed (17) Cirrhosis: Plan: Diagnosed in January 2021, [place], She is at risk for hypervolemia so we will be cautious with IV fluids. Possibly more hypervolemic now. Ammonia level was checked yesterday and was <10, so somnolence was not thought to be related to hepatic encephalopathy, however, this could be reassessed with declined mental status today. (18) DM II (diabetes mellitus, type II), controlled: Plan: A1c 9.4 reflecting poor overall control. Pharmacy on board for glycemic management Blood sugar elevated about 400, started on IV insulin drip Continue monitor blood sugar (19) COPD (chronic obstructive pulmonary disease): Plan: chronic, stable-no wheezing. Does not require O2 at baseline. Former smoker. Continue Anoro Ellipda, Albuterol inh PRN (20) Hypothyroidism: Plan: Continue levothyroxine per home regimen. (21) Thickened endometrium: Plan: Esophageal varices with a small volume of abdominal pelvic ascites and splenomegaly indicating portal hypertension is present. There is also wall thickening of the right colon with mild pericolic infiltration which could present a nonspecific colitis. She continues on antibiotics and would appreciate gastroenterology thoughts on this. Endometrium is abnormally thickened for age which will be not emergently evaluated with a pelvic ultrasound and MINE ENGINEERING MANAGER evaluation as outpatient. (22) Aneurysm of infrarenal abdominal aorta: Plan: incidental finding on CT scan. Follow-up as outpatient for monitoring. (23) DVT prophylaxis: Plan: DVT Ppx: Heparin on hold due to active GI bleed Code status: DNR Dispo Continue to monitor closely Admission and Anticipated Discharge Date Admission Date: November 08, 2021 Subjective 11/24/2021 The patient was seen and examined in telemetry unit She complains to have some discomfort in the neck at the site of central line Denies any fever and or chills Complains to have some diarrhea without any abdominal pain, nausea and or vomiting 11/25/2021 The patient was seen and examined in telemetry unit She has been feeling better She has had diarrhea about 4 times before I saw her this morning but none after that Denies any more shortness of breath Review of Systems Review of Systems: All systems reviewed and are unremarkable as noted below Neurologic: Generalized weakness but no focal neurodeficit Physical Exam Physical Exam: Lying in bed comfortably Constitutional: average body habitus; not ill appearing Eyes: PERRL, conjunctivae normal, anicteric sclerae ENMT: external ear and nose normal, oropharynx normal Neck: trachea midline, no thyromegaly Respiratory: no respiratory distress Auscultation: + diminished lung sounds and + crackles (Minimal crackles at the bases) Cardiovascular: Rate/Rhythm: regular rate, regular rhythm and + bradycardic Heart Sounds: normal S1 and normal S2; no murmur Extremities: no edema Gastrointestinal (Abdomen): Inspection/Auscultation: normal bowel sounds; abdomen not distended Percussion/Palpation: abdomen soft; abdomen nontender Musculoskeletal: No acute arthritis in any joint Neurologic: Generally weak and lethargic Results & Data Results & Data ([facility]) Vital Signs (Past 12 Hours) Vital Signs Temp Pulse Pulse Resp BP Pulse Ox 11/25/21 11:57 58 L 11/25/21 11:06 36.3 C L 57 L 18 150/63 H 97 11/25/21 07:10 86 18 97 11/25/21 07:00 36.5 C 56 L 15 134/58 L 11/25/21 04:04 36.4 C L 50 L 18 132/75 97 Medications Administered Current Inpatient Medications Acetaminophen (Acetaminophen 325 Mg Tab) 650 mg PO Q4H PRN PRN Reason: Pain or Fever Stop: 12/08/21 22:37 Last Admin: 11/14/21 14:05 Dose: 650 mg Documented by: Albuterol (Albuterol Hfa 8 Gm Inhaler) 2 puffs INH Q4H PRN PRN Reason: Wheezing Stop: 12/08/21 22:37 Aspirin (Aspirin 81 Mg Ectab) 81 mg PO [facility] Stop: 12/09/21 08:59 Last Admin: 11/25/21 09:39 Dose: 81 mg Documented by: Atorvastatin Calcium (Atorvastatin 20 Mg Tab) 20 mg PO [facility] Stop: 12/09/21 08:59 Last Admin: 11/25/21 09:39 Dose: 20 mg Documented by: Carvedilol (Carvedilol 3.125 Mg Tab) 3.125 mg PO BID [facility] Stop: 12/19/21 20:59 Last Admin: 11/20/21 08:30 Dose: Not Given Documented by: Clopidogrel Bisulfate (Clopidogrel Bisulfate 75 Mg Tab) 75 mg PO QAM [facility] Stop: 12/09/21 08:59 Last Admin: 11/25/21 09:39 Dose: 75 mg Documented by: Dextrose (Dextrose 50% 50 Ml Syringe) 25 - 50 ml IV UD PRN; Protocol PRN Reason: Hypoglycemia Protocol Stop: 12/08/21 22:17 Furosemide (Furosemide Inj 20 Mg/2 Ml Vial) 20 mg IV BID [facility] Stop: 12/21/21 11:14 Last Admin: 11/25/21 09:57 Dose: 20 mg Documented by: Gabapentin (Gabapentin 300 Mg Cap) 300 mg PO HS [facility] Stop: 12/13/21 20:59 Last Admin: 11/24/21 20:32 Dose: 300 mg Documented by: Glucagon (Glucagon For Inj 1 Mg Vial) 1 mg SQ UD PRN; Protocol PRN Reason: Hypoglycemia Protocol Stop: 12/08/21 22:17 Glucose (Glucose 10 Tabs/Tube) 4 - 8 tabs PO UD PRN; Protocol PRN Reason: Hypoglycemia Protocol Stop: 12/08/21 22:17 Glucose (Glucose 40% Gel 15 Gm Tube) 15 - 30 gm PO UD PRN; Protocol PRN Reason: Hypoglycemia Protocol Stop: 12/08/21 22:17 Heparin Sodium (Porcine) (Heparin Sod 5,000 Unit/0.5 Ml Vial) 5,000 units SQ Q12 [facility] Stop: 12/21/21 08:59 Last Admin: 11/25/21 09:38 Dose: 5,000 units Documented by: Hydrocortisone (Hydrocortisone 1% Crm 30 Gm Tube) 1 appln EXT BID [facility] Stop: 12/23/21 15:59 Last Admin: 11/25/21 11:00 Dose: Not Given Documented by: Insulin Aspart (Insulin Aspart Per Unit) 0 units SC ACHS [facility]; Protocol Stop: 12/24/21 03:59 Last Admin: 11/25/21 11:42 Dose: 29 units Documented by: Insulin Human NPH (Insulin Human Nph) 30 units SC DAILY [facility] Stop: 12/24/21 08:59 Last Admin: 11/25/21 09:46 Dose: 30 units Documented by: Ipratropium Balsam (Ipratropium Balsam Neb Soln 0.02% 2.5 Ml Vial) 0.5 mg INH Q4H PRN PRN Reason: SOB, WHEEZE Stop: 12/09/21 02:44 Ipratropium Balsam (Ipratropium Balsam Neb Soln 0.02% 2.5 Ml Vial) 0.5 mg INH BIDR [facility] Stop: 12/24/21 18:59 Last Admin: 11/25/21 07:11 Dose: 0.5 mg Documented by: Levalbuterol HCl (Levalbuterol 1.25mg/0.5ml Neb) 1.25 mg INH Q4H PRN PRN Reason: SOB, WHEEZE Stop: 12/09/21 02:44 Levalbuterol HCl (Levalbuterol 1.25mg/0.5ml Neb) 1.25 mg INH BIDR [facility] Stop: 12/24/21 18:59 Last Admin: 11/25/21 07:10 Dose: 1.25 mg Documented by: Levothyroxine Sodium (Levothyroxine Sodium 88 Mcg Tablet) 88 mcg PO DAILYBB [facility] Stop: 12/16/21 06:29 Last Admin: 11/25/21 06:19 Dose: 88 mcg Documented by: Loperamide HCl (Loperamide Hcl 2 Mg Cap) 2 mg PO UD PRN PRN Reason: Diarrhea Stop: 12/23/21 20:45 Last Admin: 11/24/21 18:13 Dose: 2 mg Documented by: Miscellaneous (Carbohydrates For Hypoglycemia ) 15 - 30 gm PO UD PRN PRN Reason: Hypoglycemia Protocol Stop: 12/08/21 22:17 Miscellaneous Information (Pharmacy Glycemic Mgmt Consult) 1 ea N/A UD PRN PRN Reason: Consult Stop: 12/12/21 10:49 Ondansetron HCl (Ondansetron Inj 2 Mg/Ml 2 Ml Vial) 4 mg IV Q6H PRN PRN Reason: Nausea Stop: 12/08/21 22:37 Pantoprazole Sodium (Pantoprazole 40 Mg Tab) 40 mg PO QAM [facility] Stop: 12/20/21 08:59 Last Admin: 11/25/21 09:39 Dose: 40 mg Documented by: Polyethylene Glycol (Polyethylene (Miralax) 17 Gm Pack) 17 gm PO DAILY PRN PRN Reason: Constipation Stop: 12/08/21 22:37 Prednisone (Prednisone 20 Mg Tab) 40 mg PO DAILY [facility] Stop: 12/21/21 08:59 Last Admin: 11/25/21 09:39 Dose: 40 mg Documented by: Umeclidinium/Vilanterol (Umeclidinium/Vilanterol 62.5/25mcg 7 Puffs/Inhaler) 1 puffs INH DAILY [facility] Stop: 12/09/21 08:59 Last Admin: 11/25/21 09:37 Dose: 1 puffs Documented by: Zinc Acetate/Diphenhydramine (Diphenhydramine 2%/Zinc 0.1% Cream 28gm Tube) 1 appln EXT QID PRN PRN Reason: itchy skin Stop: 12/23/21 20:46 (1) Anemia Anemia type: unspecified type Qualified Code(s): D64.9 - Anemia, unspecified (2) Pneumonia Laterality: right Lung location: unspecified part of lung Pneumonia type: due to unspecified organism Qualified Code(s): J18.9 - Pneumonia, unspecified organism
--- NOTE | 2021-11-25 17:59 | Nephrology Progress Note ---
Date of Service November 25, 2021 Assessment & Plan (1) Acute kidney injury superimposed on chronic kidney disease: Plan: Acute kidney injury on CKD from ischemic ATN in setting of hypotension, GI bleed and bradycardia. Baseline creatinine prior to admission 1.0, CKD 3A. Creatinine is plateau'd mid ones; peak value 2.0 on 11/19; presenting value 1.3 -Avoid hypotension. Holding amlodipine and Coreg which should continue; stopped prn metoprolol and hydrlazine as not recently used. -Daily BMP >>note she's had no labs today so will ensure ordered for am -Avoid nephrotoxin -Monitor input output -Okay to continue Lasix 20 mg IV twice daily for now Admission and Anticipated Discharge Date Admission Date: November 08, 2021 Subjective down to 3 L 02nc when I saw her mid afternoon today. feels very weak. Review of Systems Review of Systems: Unobtainable due to cognitive status (still some confusion) Physical Exam 2 Constitutional: well developed and well nourished; no acute distress Eyes: EOM intact bilaterally ENMT: Ears: no external ear abnormality Nose: no external nose abnormality Mouth: + dry oral mucous membranes Neck: no nuchal rigidity Respiratory: normal respiratory effort Auscultation: + diminished lung sounds (herlinda L base) and + crackles (R posterior 1/[address] way up) Cardiovascular: RRR, no murmur, no edema Gastrointestinal (Abdomen): Inspection/Auscultation: normal bowel sounds Percussion/Palpation: abdomen soft and + fluid wave; abdomen nontender Musculoskeletal: Extremities: strength 5/5 throughout Skin: no rashes, warm and dry Neurologic: generalized weakness; no tremor Psychiatric: Orientation: oriented to person and oriented to place Results & Data ([facility]) Vital Signs (Past 12 Hours) Vital Signs Temp Pulse Pulse Resp BP Pulse Ox 11/25/21 17:32 77 18 92 11/25/21 15:21 36.4 C L 60 16 128/68 94 11/25/21 11:57 58 L 11/25/21 11:06 36.3 C L 57 L 18 150/63 H 97 11/25/21 07:10 86 18 97 11/25/21 07:00 36.5 C 56 L 15 134/58 L Laboratory Results 11/24/21 05:19 11/24/21 05:19
[2021-11-25] MEDS ORDERED: dexAMETHasone 6 MG in SYRINGE 0 ML IV SCH (21:15)
[2021-11-25 21:31] LABS: Cdiff Antigen Positive
[2021-11-25 21:32] LABS: Cdiff Toxin A+B Positive Cdiff Toxin (Negative)
[2021-11-25] MEDS: GABAPENTIN 300 MG CAP PO SCH (22:17)
[2021-11-25] MEDS ORDERED: dilTIAZem HCl 5 MG/ML 5 ML VIAL IV STA (22:19)
[2021-11-26] MEDS ORDERED: INSULIN ASPART PER UNIT SC ONE (02:00)
[2021-11-26] MEDS: LEVOTHYROXINE SODIUM 88 MCG TABLET PO SCH (06:21)
[2021-11-26] MEDS: IPRATROPIUM BROMIDE NEB SOLN 0.02% 2.5 ML VIAL INH SCH (07:52)
[2021-11-26] MEDS: LEVALBUTEROL 1.25MG/0.5ML NEB INH SCH (07:52)
--- NOTE | 2021-11-26 08:31 | Pharmacy Report ---
Pharmacy Glycemic Short Note 2 - Date of Service November 26, 2021 - Glycemic Short BSG Results (Last 24 hours): 11/25/21 11/25/21 11/25/21 11:39 16:02 20:14 POC Glucose 208 H 216 H 192 H 11/26/21 07:52 POC Glucose 139 H OUTPATIENT ANTIDIABETIC REGIMEN: * Tresiba 15 units Q AM * Sitagliptin 100mg PO daily * A1c = 9.4% 11/09/21 ASSESSMENT: 11/26: * BSGs elevated yesterday, 129, 208, 216, and 192 mg/dL, fasting BSG of 139 mg/dL this morning * Received 121 units of insulin (30 units of NPH, 91 units of prandial/correctional bolus) * Prednisone dose reduced today from 40 mg to 20 mg * Will reduce NPH dose and maintain current Novolog parameters for now in light of hyperglycemia yesterday * AM Novolog was given ~1000 today, will hold off on Novolog adjustments with lunch 11/24: * BSGs unexpectedly trended very high yesterday evening, 108, 120, 440, 374 mg/dL * Insulin infusion was initiated, but titrated off fairly quickly with resolution of BSGs * Fasting BSG of 117 mg/dL this morning * Will plan to increase NPH to full 0.4 unit/kg dose with prednisone, tighten Novolog carb coverage 11/22: * BSGs elevated throughout the day yesterday, 95, 222, 294, 283, and 223 mg/dL * Received 114 units of insulin (significantly weighted towards bolus insulin, only 16 units of Lantus given) * Steroids changed to prednisone 40 mg PO daily starting yesterday * Will change Lantus to NPH today given low fasting BSGs and to more closely mimic kinetics of prednisone (hopefully control BSGs throughout the day) 11/12 * Type 2 diabetic admitted for sepsis secondary to multifocal pneumonia, UTI * Patient has been transferred to ICU * Nephrology has ordered dextrose containing IVFs (D5W + 50mEq Bicarb + 40mEq K Tom) to run at 125cc/hr for metabolic acidosis, hypernatremia. * BSGs had been well controlled until yesterday afternoon, suspect deterioration in control was secondary to dextrose provision in IVs used to provide free water. * Plan to continue with scaled Lantus dosing BID in current dose as she has requ ired little basal insulin this admission due to poor PO intake * Plan to adjust NovoLog dosing to Q 4 hrs, provide a scheduled dose of NovoLog while in goal range on dextrose containing fluids to help cover the 25gm carbs provided every 4 hours. This scale can be converted back to traditional CF/CR dosing when dextrose containing IVFs d/c'd or rate reduced PLAN FOR INPATIENT GLYCEMIC CONTROL: * Hold outpatient oral diabetes medications (sitagliptin) * Basal insulin - decrease * NPH 18 units SC daily with prednisone 20 mg PO daily (~0.25 unit/kg) * Consider increase in AM if sustained highs today * Bolus insulin - continue * Correctional Insulin: Novolog Correction per scale ACHS Goal Range: Low 110 mg/dL - High 140 mg/dL Correction Factor: 10 mg/dL/unit * Prandial insulin: Per carb ratio of 1 unit per 2.5 grams CHO consumed PLAN FOR DISCHARGE: * HbA1c of 9.4% suggests poor outpatient glycemic control * Goal of less than 8% is likely reasonable for patient based on age/comorbidities with focus on minimizing hypoglycemia * Unfortunately, most of our inpatient BSG data has been while patient has been on steroids * Patient has had EARL superimposed on CKD, if new baseline eGFR is reduced, then may need to decrease dose of sitagliptin * eGFR: 30-44 mL/min/1.73 m2 - decrease to sitagliptin 50 mg PO daily * eGFR < 30 mL/min/1.73 m2 - decrease to sitagliptin 25 mg PO daily * Based on initial BSG data while off steroids, Tresiba 15 units SC daily seems reasonable
--- NOTE | 2021-11-26 08:44 | Nephrology Progress Note ---
Date of Service November 26, 2021 Assessment & Plan (1) Acute kidney injury superimposed on chronic kidney disease: Plan: Acute kidney injury on CKD from ischemic ATN in setting of hypotension, GI bleed and bradycardia. Baseline creatinine prior to admission 1.0, CKD 3A. Creatinine is plateau'd mid ones; peak value 2.0 on 11/19; presenting value 1.3 -Avoid hypotension. Holding amlodipine and Coreg which should continue -Avoid nephrotoxin -Monitor input output DISCHARGE RECOMMENDATIONS -lasix 20 mg every other day po or every day if 02 needs increasing or worsening vascular congestion -hospital discharge appt with me in [facility] in 2-4 weeks -weekly bmp until she sees me to be ordered by nephro -OK to resume OP coreg and OP K supplements; would continue to hold losartan at d/c -would continue gabapentin at current lower dose 300 mg hs given renal dysfun ction and not prior OP dosing Admission and Anticipated Discharge Date Admission Date: November 08, 2021 Subjective Covid test routine prior to SNF transfer positive but negative on PCR so not a covid infxn. also dx'd overnight w/ C diff > diarrhea slowing on po vanco. still on 02; hoping for transfer today to SNF. pt still quite tired and weak. wearing 02 Review of Systems Review of Systems: All systems reviewed & are unremarkable except as noted in Subjective Physical Exam Constitutional: well developed and well nourished; no acute distress Eyes: EOM intact bilaterally ENMT: Ears: no external ear abnormality Nose: no external nose abnormality Mouth: + dry oral mucous membranes Neck: no nuchal rigidity Respiratory: normal respiratory effort Auscultation: + diminished lung sounds (BL bases) Cardiovascular: RRR, no murmur, no edema Gastrointestinal (Abdomen): Inspection/Auscultation: normal bowel sounds Percussion/Palpation: abdomen soft and + fluid wave; abdomen nontender Musculoskeletal: Extremities: strength 5/5 throughout Skin: no rashes, warm and dry Psychiatric: A+Ox3, euthymic affect Orientation: oriented to person and o riented to place Results & Data ([facility]) Vital Signs (Past 12 Hours) Vital Signs Temp Pulse Resp BP Pulse Ox 11/26/21 07:59 36.5 C 51 L 20 119/52 L 94 11/26/21 07:53 52 L 18 94 11/26/21 02:56 36.3 C L 62 20 133/56 L 95 11/26/21 00:04 36.4 C L 62 24 139/62 92 11/25/21 23:35 16 90 11/25/21 21:49 37 C 68 18 144/84 H 98 Laboratory Results 11/24/21 05:19 11/26/21 08:30
[2021-11-26] MEDS ORDERED: INSULIN HUMAN NPH SC SCH ×2 (09:00)
[2021-11-26] MEDS ORDERED: predniSONE 20 MG TAB PO SCH (09:00)
--- NOTE | 2021-11-26 09:08 | XRay Report ---
XR chest 1V portable HISTORY: Shortness of breath. covid pneumonia COMPARISON: Chest 11/19/2021. FINDINGS: No pneumothorax. There are low lung volumes. The heart remains mildly enlarged. There is di ffuse interstitial/vascular thickening and small bilateral pleural effusions. Hazy density within the right mid to lower lung zone may represent layering pleural fluid or an airspace opacity. This remai ns unchanged. Vascular stents are noted within the left subclavian artery. IMPRESSION: 1. Mild cardiomegaly with diffuse interstitial/vascular thickening. This has progressed and favors mi ld pulmonary edema. 2. Bilateral pleural effusions are again noted. ACT 112: Negative or not required by law. Electronically signed by: Sunday Enciso M.D. 11/26/2021 9:06 AM
[2021-11-26] MEDS: VANCOMYCIN HCL 125 MG/2.5ML SOLN PO SCH ×2 (09:18→12:22)
[2021-11-26] MEDS: RASPBERRY SYRUP 5 ML UDP PO SCH ×2 (09:18→12:22)
[2021-11-26] MEDS: UMECLIDINIUM/VILANTEROL 62.5/25MCG 7 PUFFS/INHALER INH SCH (09:19)
[2021-11-26] MEDS: HYDROCORTISONE 1% CRM 30 GM TUBE EXT SCH (09:21)
[2021-11-26] MEDS: HEPARIN SOD 5,000 UNIT/0.5 ML VIAL SQ SCH (09:22)
[2021-11-26 09:31] LABS: Albumin Level 2.6 gm/dl (3.4-5.0); BUN Creatinine Ratio 57.6 (10-20); Bilirubin Direct 0.2 mg/dl (0-0.2); Bilirubin,Total 0.9 mg/dl (0.2-1.0); Calcium 8.4 mg/dl (8.5-10.1); Creatinine Clr Calc Pharmacy 24.1 ml/min; Est GFR (African American) 36.1 ml/min; Est GFR (Non-African American) 31.2 ml/min; Total Protein 5.3 gm/dl (6.0-8.3)
[2021-11-26] MEDS: FUROSEMIDE INJ 20 MG/2 ML VIAL IV SCH (09:41)
[2021-11-26] MEDS: INSULIN ASPART PER UNIT SC SCH ×3 (09:49→16:43)
[2021-11-26] MEDS: CLOPIDOGREL BISULFATE 75 MG TAB PO SCH (10:27)
[2021-11-26] MEDS: ASPIRIN 81 MG ECTAB PO SCH (10:28)
[2021-11-26] MEDS: PANTOprazole 40 MG TAB PO SCH (10:28)
[2021-11-26] MEDS: ATORVASTATIN 20 MG TAB PO SCH (10:29)
--- NOTE | 2021-11-26 13:12 | Hospitalist Progress Note ---
Date of Service November 26, 2021 Assessment & Plan (1) GI bleed: Plan: No more GI bleeding (2) Anemia: Plan: Patient had 3 episode of maroon-colored bowel movement today Hemoglobin dropped from 11 yesterday to 7.1 today GI was notified about the drop in hemoglobin and GI bleed Dr. Armijo discussed the case with daughter, patient and son about EGD Patient will need to get intubated due to respiratory status for the EGD and will remain intubating after the procedure as per anesthesiologist Patient does not want to get intubated for the procedure and pt decided not to proceed with the procedure Dr. Armijo explained to pt and family dennis hgb might continue to drop, ongoing bleeding, if endoscopy is not performed. We will continue PPI drip and octreotide Patient was started on Cipro per GI due to the history of cirrhosis Type and cross done and obtained consent from daughter/patient about blood transfusion We will transfuse 1 unit PRBC now and will place 2 unit on hold in case hemoglobin continued to drop We will continue monitor CBC every 6 hours 11/23/21 S/P 1 unit PRBC transfusion on 11/17/21 Hgb 9.7 today Case discussed with hospitalist Dr. Boland at [facility] that was not able to accept her for transfer due to lack of bed available EGD done yesterday showed Grade I esophageal varices. Portal hypertensive gastropathy. No source of UGIB identified. It is possible that this is a LGIB (diverticula, AVM). Diet advance as tolerated Continue ASA 81 mg Continue to hold Plavix for an additional 5 days. (Plavix can resume on 11/24 if hemoglobin stable as per GI) OK to resume DVT prophylaxis with heparin as per GI 11/24/2021 and subsequently Has been feeling much better today Hemoglobin remains stable at 9.2 We will start Plavix from tomorrow-awaiting placement Remains medically stable and ready to be transferred No more GI bleeding and denies any diarrhea as of this morning Negative COVID-19 virus infection Routine COVID test prior to go to [facility] came back positive yesterday Repeat definitive and confirmatory PCR test came back negative Her chest x-ray and CRP level do not support COVID infection She remains asymptomatic and she was reassured She does not require any isolation C. difficile colitis Has had diarrhea before but since this morning seems to be stopped Started on oral vancomycin and will be continued for 10 days (3) Transaminitis: Plan: LFT worsening with AST 252, ALT 114 and Alk 240 Liver enzymes continue trending down with AST from 143 to 47--> 31 and ALT from 89 to 55--> 46 and Alk from 171 to 139 Will resume statin in a.m. Resolved (4) Thrombocytopenia: Plan: Platelet slightly increased to 76 today Possible related to the acute GI bleed, worsening liver enzymes, abx therapy Continue monitor cbc Due to cirrhosis (5) Hypokalemia: Plan: Hypokalemia Possible related to IV lasix K 3.4 today K replaced Continue monitor BMP-potassium is normalized (6) Acute metabolic encephalopathy: Plan: 86yo F with a PMH of PAD s/p stent L subclavian, superior mesenteric artery, L iliac and fempop bypass, infrarenal AAA measuring 3.9 cm, HTN, HLD, CKD III, insulin dependent DM II, COPD, hypothyroidism, history of C. difficile in May 2021 and other medical problems who presents after unwitnessed fall with acute metabolic encephalopathy, sepsis and pneumonia. Initially resolved after sepsis resuscitation, however, she has become obtunded overnight. Multiple factors likely contributing with worsening hypoxia, hypernatremia, and ongoing infections-not an exhaustive list of contributing factors. CT head on admission showed no acute intracranial hemorrhage, no evidence of acute territorial infarction or other acute intracranial disease process. resolved (7) Pneumonia: (8) Hypoxia: Plan: Possible related to pneumonia initially, and developed fluid overload after resuscitation CT chest on admission showed right lower lobe consolidative opacities concerning for pneumonia and/or aspiration. COVID-19 PCR negative Influenza A/B negative RSV negative Procalcitonin: 39 --> 13 Initially was started on vanc and Zosyn. Out of concerns for EARL, changed Zosyn to cefepime. Sputum culture growing strep as well as MSSA Speech was consulted and reported no issues wtih aspiration on her examination and she initially improved on abx. Then further hypoxia is possibly 2/2 fluid overload after resuscitation efforts Repeat chest x-ray today showed pulmonary vascular congestion. Unchanged layering pleural effusions with bibasilar consolidation suggestive of atelectasis versus pneumonia. Currently on 5 L oxygen supplement via oxygen mask Completed the course of antibiotic with Unasyn Solumedrol was discontinued , then transition to PO Prednisone 40mg daily, will taper to 20 mg in a.m. Continue lasix 20mg IV BID Clinically much better and awaiting placement We will continue with oral Lasix on discharge She has been on home oxygen and mentions that her oxygen requirements has gone down since she has been in the hospital (9) Atrial fibrillation with rapid ventricular response: Plan: New onset atrial fibrillation with RVR overnight in setting of pulmonary illness and possible fluid overload after resuscitation from sepsis. Currently on normal sinus rhythm with rate stable Cardiology on board ECHO showed LV function is well-preserved and no significant valvular pathology. No additional recommendations at this time. carvedilol on hold We will put back on carvedilol with hold parameters Bradycardia HR dropped btw 30 to 40 Asymptomatic Carvedilol 3.125 mg on hold due to bradycardia Continue monitor -will not restart carvedilol as long as heart rate remains low as per refrigeration system installer (10) UTI (urinary tract infection): Plan: Urine culture grew Enterococcus faecalis Received IV Vanco (11) Sepsis: Plan: Resuscitated. Cont antibiotics. (12) Abdominal pain: Plan: Initially was resolved, however, appeared to withdraw from pain during exam this morning. She is altered and on BIPAP, actively trying to remove her mask and with mitts on. She is not a reliable historian at this time. During this admission, in the setting of abdominal pain with cirrhosis, hyperbilirubinemia and cholelithiasis she was also seen by gastroenterology and surgery who felt no further workup or treatments were warranted. Her elevated total bilirubin and tender abdomen was thought to be possibly secondary to infection or sepsis versus decompensated cirrhosis. As this has improved with treatment of her infection and it was more likely the former. Defer further workup to ICU team as needed. CT also found that endometrium is abnormally thickened for age which will be not emergently evaluated with a pelvic ultrasound and [facility] evaluation as outpatient. Currently denies abdominal pain (13) Hypertension: Plan: We will hold bp meds due to low hemoglobin from GI bleed Amlodipine d/c and carvedilol on hold continue monitor BP (14) Fall: Plan: Patient remembers falling out of her bed -likely related to weakness in setting of metabolic encephalopathy which is now clearing. Min CK elevation expected. Likely improved after IVF resuscitation. CT head, cervical spine CT, chest CT, pelvic XR without evidence of acute trauma or fracture. Cont with Fall precautions, PT OT evaluation Awaiting rehab placement (15) Acute kidney injury superimposed on chronic kidney disease: Plan: Cr elevated at 1.36 (baseline ~ 0.9) in setting of dehydration and sepsis. Creatinine 1.7 today Nephrology on board Continue monitor BMP while getting IV Lasix as needed Nephrology on board -appreciate input and recommendation Case discussed with nephrology that recommended to continue lasix IV 20mg BID Continue monitor BMP while on IV Lasix We will check PRP tomorrow-creatinine remains stable (16) PAD (peripheral artery disease): Plan: chronic, stable. S/p stent L subclavian, superior mesenteric artery, L iliac and fempop bypass Follows with Dr. Andrade of vascular surgery in [place] Continue to hold aspirin, plavix, statin due to active GI bleed (17) Cirrhosis: Plan: Diagnosed in January 2021, SUDHAKAR, She is at risk for hypervolemia so we will be cautious with IV fluids. Possibly more hypervolemic now. Ammonia level was checked yesterday and was <10, so somnolence was not thought to be related to hepatic encephalopathy, however, this could be reassessed with declined mental status today. (18) DM II (diabetes mellitus, type II), controlled: Plan: A1c 9.4 reflecting poor overall control. Pharmacy on board for glycemic management Blood sugar elevated about 400, started on IV insulin drip Continue monitor blood sugar (19) COPD (chronic obstructive pulmonary disease): Plan: chronic, stable-no wheezing. Does not require O2 at baseline. Former smoker. Continue Anoro Ellipda, Albuterol inh PRN (20) Hypothyroidism: Plan: Continue levothyroxine per home regimen. (21) Thickened endometrium: Plan: Esophageal varices with a small volume of abdominal pelvic ascites and splenomegaly indicating portal hypertension is present. There is also wall thickening of the right colon with mild pericolic infiltration which could present a nonspecific colitis. She continues on antibiotics and would appreciate gastroenterology thoughts on this. Endometrium is abnormally thickened for age which will be not emergently evaluated with a pelvic ultrasound and [facility] evaluation as outpatient. (22) Aneurysm of infrarenal abdominal aorta: Plan: incidental finding on CT scan. Follow-up as outpatient for monitoring. (23) DVT prophylaxis: Plan: DVT Ppx: Heparin on hold due to active GI bleed Code status: DNR Dispo Continue to monitor closely Discussed with the daughter and possible discharge this afternoon if [facility] accepts the patient with C. difficile infection Admission and Anticipated Discharge Date Admission Date: November 08, 2021 Subjective 11/24/2021 The patient was seen and examined in telemetry unit She complains to have some discomfort in the neck at the site of central line Denies any fever and or chills Complains to have some diarrhea without any abdominal pain, nausea and or vomiting 11/25/2021 The patient was seen and examined in telemetry unit She has been feeling better She has had diarrhea about 4 times before I saw her this morning but none after that Denies any more shortness of breath 11/26/2021 The patient was seen and examined in telemetry unit She was diagnosed positive for COVID yesterday but a repeat confirmatory PCR test came back negative this afternoon She is not having any symptoms from COVID She denies any diarrhea and wants to be discharged Review of Systems Review of Systems: All systems reviewed and are unremarkable except as noted below Gastrointestinal: No diarrhea Physical Exam Physical Exam: Lying in bed comfortably Constitutional: average body habitus; not ill appearing Eyes: PERRL, conjunctivae normal, anicteric sclerae ENMT: external ear and nose normal, oropharynx normal Neck: trachea midline, no thyromegaly Respiratory: no respiratory distress Auscultation: + diminished lung sounds and + crackles (Minimal crackles at the bases) Cardiovascular: Rate/Rhythm: regular rate, regular rhythm and + bradycardic Heart Sounds: normal S1 and normal S2; no murmur Extremities: no edema Gastrointestinal (Abdomen): Inspection/Auscultation: normal bowel sounds; abdomen not distended Percussion/Palpation: abdomen soft; abdomen nontender Musculoskeletal: No acute arthritis in any joint Neurologic: Alert, awake and oriented x3. Generally weak but no focal sensory and motor deficit appreciated Results & Data Results & Data ([facility]) Vital Signs (Past 12 Hours) Vital Signs Temp Pulse Resp BP Pulse Ox 11/26/21 07:59 36.5 C 51 L 20 119/52 L 94 11/26/21 07:53 52 L 18 94 11/26/21 02:56 36.3 C L 62 20 133/56 L 95 Laboratory Results [facility] 11/26/21 08:30 Sodium 140 Potassium 4.0 Chloride 106 Carbon Dioxide 28 BUN 87 H Creatinine 1.51 H Glucose 124 H Calcium 8.4 L Liver Function 11/26/21 Range/Units 08:30 Total Bilirubin 0.9 (0.2-1.0) mg/dl Direct Bilirubin 0.2 (0-0.2) mg/dl AST 42 H (13-39) U/L ALT 81 H (7-52) U/L Alkaline Phosphatase 173 H (34-104) U/L Albumin 2.6 L (3.4-5.0) gm/dl Medications Administered Current Inpatient Medications Acetaminophen (Acetaminophen 325 Mg Tab) 650 mg PO Q4H PRN PRN Reason: Pain or Fever Stop: 12/08/21 22:37 Last Admin: 11/14/21 14:05 Dose: 650 mg Documented by: Albuterol (Albuterol Hfa 8 Gm Inhaler) 2 puffs INH Q4H PRN PRN Reason: Wheezing Stop: 12/08/21 22:37 Aspirin (Aspirin 81 Mg Ectab) 81 mg PO [facility] Stop: 12/09/21 08:59 Last Admin: 11/26/21 10:28 Dose: 81 mg Documented by: Atorvastatin Calcium (Atorvastatin 20 Mg Tab) 20 mg PO [facility] Stop: 12/09/21 08:59 Last Admin: 11/26/21 10:29 Dose: 20 mg Documented by: Carvedilol (Carvedilol 3.125 Mg Tab) 3.125 mg PO BID [facility] Stop: 12/19/21 20:59 Last Admin: 11/20/21 08:30 Dose: Not Given Documented by: Clopidogrel Bisulfate (Clopidogrel Bisulfate 75 Mg Tab) 75 mg PO [facility] Stop: 12/09/21 08:59 Last Admin: 11/26/21 10:27 Dose: 75 mg Documented by: Dextrose (Dextrose 50% 50 Ml Syringe) 25 - 50 ml IV UD PRN; Protocol PRN Reason: Hypoglycemia Protocol Stop: 12/08/21 22:17 Furosemide (Furosemide Inj 20 Mg/2 Ml Vial) 20 mg IV BID [facility] Stop: 12/21/21 11:14 Last Admin: 11/26/21 09:41 Dose: 20 mg Documented by: Gabapentin (Gabapentin 300 Mg Cap) 300 mg PO [facility] Stop: 12/13/21 20:59 Last Admin: 11/25/21 22:17 Dose: 300 mg Documented by: Glucagon (Glucagon For Inj 1 Mg Vial) 1 mg SQ UD PRN; Protocol PRN Reason: Hypoglycemia Protocol Stop: 12/08/21 22:17 Glucose (Glucose 10 Tabs/Tube) 4 - 8 tabs PO UD PRN; Protocol PRN Reason: Hypoglycemia Protocol Stop: 12/08/21 22:17 Glucose (Glucose 40% Gel 15 Gm Tube) 15 - 30 gm PO UD PRN; Protocol PRN Reason: Hypoglycemia Protocol Stop: 12/08/21 22:17 Heparin Sodium (Porcine) (Heparin Sod 5,000 Unit/0.5 Ml Vial) 5,000 units SQ Q12 [facility] Stop: 12/21/21 08:59 Last Admin: 11/26/21 09:22 Dose: 5,000 units Documented by: Hydrocortisone (Hydrocortisone 1% Crm 30 Gm Tube) 1 appln EXT BID [facility] Stop: 12/23/21 15:59 Last Admin: 11/26/21 09:21 Dose: 1 appln Documented by: Insulin Aspart (Insulin Aspart Per Unit) 0 units SC ACHS [facility]; Protocol Stop: 12/24/21 03:59 Last Admin: 11/26/21 12:29 Dose: 35 units Documented by: Insulin Human NPH (Insulin Human Nph) 18 units SC DAILY [facility] Stop: 12/24/21 08:59 Last Admin: 11/26/21 09:50 Dose: 18 units Documented by: Ipratropium [place] (Ipratropium [place] Neb Soln 0.02% 2.5 Ml Vial) 0.5 mg INH Q4H PRN PRN Reason: SOB, WHEEZE Stop: 12/09/21 02:44 Last Admin: 11/25/21 17:28 Dose: 0.5 mg Documented by: Ipratropium [place] (Ipratropium [place] Neb Soln 0.02% 2.5 Ml Vial) 0.5 mg INH BIDR [facility] Stop: 12/24/21 18:59 Last Admin: 11/26/21 07:52 Dose: 0.5 mg Documented by: Levalbuterol HCl (Levalbuterol 1.25mg/0.5ml Neb) 1.25 mg INH Q4H PRN PRN Reason: SOB, WHEEZE Stop: 12/09/21 02:44 Last Admin: 11/25/21 17:29 Dose: 1.25 mg Documented by: Levalbuterol HCl (Levalbuterol 1.25mg/0.5ml Neb) 1.25 mg INH BIDR [facility] Stop: 12/24/21 18:59 Last Admin: 11/26/21 07:52 Dose: 1.25 mg Documented by: Levothyroxine Sodium (Levothyroxine Sodium 88 Mcg Tablet) 88 mcg PO DAILYBB [facility] Stop: 12/16/21 06:29 Last Admin: 11/26/21 06:21 Dose: 88 mcg Documented by: Loperamide HCl (Loperamide Hcl 2 Mg Cap) 2 mg PO UD PRN PRN Reason: Diarrhea Stop: 12/23/21 20:45 Last Admin: 11/24/21 18:13 Dose: 2 mg Documented by: Miscellaneous (Carbohydrates For Hypoglycemia ) 15 - 30 gm PO UD PRN PRN Reason: Hypoglycemia Protocol Stop: 12/08/21 22:17 Miscellaneous Information (Pharmacy Glycemic Mgmt Consult) 1 ea N/A UD PRN PRN Reason: Consult Stop: 12/12/21 10:49 Ondansetron HCl (Ondansetron Inj 2 Mg/Ml 2 Ml Vial) 4 mg IV Q6H PRN PRN Reason: Nausea Stop: 12/08/21 22:37 Pantoprazole Sodium (Pantoprazole 40 Mg Tab) 40 mg PO QAM [facility] Stop: 12/20/21 08:59 Last Admin: 11/26/21 10:28 Dose: 40 mg Documented by: Polyethylene Glycol (Polyethylene (Miralax) 17 Gm Pack) 17 gm PO DAILY PRN PRN Reason: Constipation Stop: 12/08/21 22:37 Prednisone (Prednisone 20 Mg Tab) 20 mg PO DAILY [facility] Stop: 12/26/21 08:59 Last Admin: 11/26/21 09:19 Dose: 20 mg Documented by: Raspberry (Raspberry Syrup 5 Ml Udp) 5 ml PO Q6 [facility] Stop: 12/06/21 07:29 Last Admin: 11/26/21 12:22 Dose: 5 ml Documented by: Umeclidinium/Vilanterol (Umeclidinium/Vilanterol 62.5/25mcg 7 Puffs/Inhaler) 1 puffs INH DAILY [facility] Stop: 12/09/21 08:59 Last Admin: 11/26/21 09:19 Dose: 1 puffs Documented by: Vancomycin HCl (Vancomycin Hcl 125 Mg/2.5ml Soln) 125 mg PO Q6 [facility] Stop: 12/06/21 07:29 Last Admin: 11/26/21 12:22 Dose: 125 mg Documented by: Zinc Acetate/Diphenhydramine (Diphenhydramine 2%/Zinc 0.1% Cream 28gm Tube) 1 appln EXT QID PRN PRN Reason: itchy skin Stop: 12/23/21 20:46 (1) Anemia Anemia type: unspecified type Qualified Code(s): D64.9 - Anemia, unspecified (2) Pneumonia Laterality: right Lung location: unspecified part of lung Pneumonia type: due to unspecified organism Qualified Code(s): J18.9 - Pneumonia, unspecified organism
[2021-11-26 14:44] LABS: Influenza A virus by PCR Negative (Neg); Influenza B virus by PCR Negative (Neg); RSV by PCR Negative (Neg); SARS CoV2 RNA(COVID-19) InHosp NEGATIVE (Negative)
--- NOTE | 2021-11-27 07:34 | Discharge Summary ---
Date of Service November 27, 2021 Admission HPI Per Admitting Provider This is an 86yo F with a PMH of PAD s/p stent L subclavian, superior mesenteric artery, L iliac and fempop bypass, infrarenal AAA measuring 3.9 cm, HTN, HLD, CKD III, insulin dependent DM II, COPD, hypothyroidism, history of C. difficile in May 2021 and other medical problems as a below who presents after being found at her home on the floor by son earlier today. At baseline, patient is independent and lives alone. Has 2 sons and [id number] who are involved in care. Last spoke to her on the phone on Monday and she was in normal state of health. Called multiple times today to no answer, so son stopped by and found patient lying on the floor next to her bed covered with stool and urine. Noted to have significant confusion. Was unable to tell him about nature of fall. Knows who she is but answered other questions with jumbled words, which is very unusual for her. ROS unreliable due to confusion. Follows with Dr. Andrade in [place] for vascular surgery and Dr. Valera for primary care. Admission Exam Per Admitting Provider Physical Exam: General Appearance:WD/WN, vitals as above, disheveled appearance, confused, able to follow some commands Head: normocephalic, atraumatic Eyes:normal inspection, PERRL, conjunctivae normal, anicteric sclerae ENT: external ear and nose normal, oropharynx normal Neck: normal visual inspection, trachea midline, no thyromegaly Respiratory:normal respiratory effort, lungs clear to auscultation, no wheeze, rales, rhonchi. No accessory muscle use Cardiovascular: tachycardic rate, regular rhythm, no murmur, normal peripheral pulses, no BLE edema. Vessels: no JVD Chest: normal inspection of chest Abdomen/GI: normal bowel sounds, soft, TTP RUQ, no hepatosplenomegaly Extremities/Musculoskeletal: no cyanosis or clubbing, RUE and RLE 5/5, LUE 5/5, LLE 4/5 (chronic) Neurologic: PERRL, EOMI, accommodation nl, no face palsy, garbling words intermittently, CN's II-XI intact bilaterally and moves all extremities Psychiatric:Alert and oriented to person but not place or time. Skin: no rashes, normal color, warm/dry Principal Diagnosis Acute metabolic and couple apathy -resolved , pneumonia with hypoxia required ICU care, GI bleed, grade 1 esophageal varices without any bleeding on EGD, C. difficile colitis, A. fib with RVR, EARL on CKD, cirrhosis of liver, type 2 diabetes, COPD Discharge Data Allergies Allergy/AdvReac Type Severity Reaction Status Date / Time vitamin E (d-alpha Allergy Intermediate ITCHY Unverified 11/08/21 15:25 tocopherol) RASH, HIVES--PER [facility] 09/21/21 ENCOUNTER amoxicillin AdvReac Intermediate STOMACH Unverified 11/10/21 14:44 UPSET--PER [facility] 09/21/21 ENCOUNTER clavulanic acid AdvReac Intermediate STOMACH Unverified 11/10/21 14:44 UPSET--PER [facility] 09/21/21 ENCOUNTER Consultations 11/08/21 18:49 ED Decision to Admit Stat 11/09/21 12:17 Consult Gastroenterology Routine Consult General Surgery Routine 11/11/21 08:00 Consult Cardiology Routine Consult Nephrology Routine 11/11/21 11:57 Consult Home Teaching Gr[employer] 7 And 8 Teacher Stat Procedures Performed Operation Date: 11/19/21 09:45 Actual Procedures p Esophagogastroduodenoscopy - Sury Armijo MD Operation Date: 11/19/21 16:30 <No data on this case meets the specified criteria> Ordered Studies 11/08/21 14:38 CT cervical spine wo con Stat CT head/brain wo con Stat 11/08/21 15:36 CT chest diagnostic wo con Stat 11/08/21 22:38 US liver Routine 11/09/21 10:25 CT abd pelvis IV con only Urgent Hospital Course (1) GI bleed: No more GI bleeding (2) Anemia: Patient had 3 episode of maroon-colored bowel movement today Hemoglobin dropped from 11 yesterday to 7.1 today GI was notified about the drop in hemoglobin and GI bleed Dr. Armijo discussed the case with daughter, patient and son about EGD Patient will need to get intubated due to respiratory status for the EGD and will remain intubating after the procedure as per anesthesiologist Patient does not want to get intubated for the procedure and pt decided not to proceed with the procedure Dr. Armijo explained to pt and family dennis hgb might continue to drop, ongoing bleeding, if endoscopy is not performed. We will continue PPI drip and octreotide Patient was started on Cipro per GI due to the history of cirrhosis Type and cross done and obtained consent from daughter/patient about blood transfusion We will transfuse 1 unit PRBC now and will place 2 unit on hold in case hemoglobin continued to drop We will continue monitor CBC every 6 hours 11/23/21 S/P 1 unit PRBC transfusion on 11/17/21 Hgb 9.7 today Case discussed with hospitalist Dr. Boland at [facility] that was not able to accept her for transfer due to lack of bed available EGD done yesterday showed Grade I esophageal varices. Portal hypertensive gastropathy. No source of UGIB identified. It is possible that this is a LGIB (diverticula, AVM). Diet advance as tolerated Continue ASA 81 mg Continue to hold Plavix for an additional 5 days. (Plavix can resume on 11/24 if hemoglobin stable as per GI) OK to resume DVT prophylaxis with heparin as per GI 11/24/2021 and subsequently Has been feeling much better today Hemoglobin remains stable at 9.2 We will start Plavix from tomorrow-awaiting placement Remains medically stable and ready to be transferred No more GI bleeding and denies any diarrhea as of this morning Negative COVID-19 virus infection Routine COVID test prior to go to SNF came back positive yesterday Repeat definitive and confirmatory PCR test came back negative Her chest x-ray and CRP level do not support COVID infection She remains asymptomatic and she was reassured She does not require any isolation C. difficile colitis Has had diarrhea before but since this morning seems to be stopped Started on oral vancomycin and will be continued for 10 days (3) Transaminitis: LFT worsening with AST 252, ALT 114 and Alk 240 Liver enzymes continue trending down with AST from 143 to 47--> 31 and ALT from 89 to 55--> 46 and Alk from 171 to 139 Will resume statin in a.m. Resolved (4) Thrombocytopenia: Platelet slightly increased to 76 today Possible related to the acute GI bleed, worsening liver enzymes, abx therapy Continue monitor cbc Due to cirrhosis (5) Hypokalemia: Hypokalemia Possible related to IV lasix K 3.4 today K replaced Continue monitor BMP-potassium is normalized (6) Acute metabolic encephalopathy: 86yo F with a PMH of PAD s/p stent L subclavian, superior mesenteric artery, L iliac and fempop bypass, infrarenal AAA measuring 3.9 cm, HTN, HLD, CKD III, insulin dependent DM II, COPD, hypothyroidism, history of C. difficile in May 2021 and other medical problems who presents after unwitnessed fall with acute metabolic encephalopathy, sepsis and pneumonia. Initially resolved after sepsis resuscitation, however, she has become obtunded overnight. Multiple factors likely contributing with worsening hypoxia, hypernatremia, and ongoing infections-not an exhaustive list of contributing factors. CT head on admission showed no acute intracranial hemorrhage, no evidence of acute territorial infarction or other acute intracranial disease process. resolved (7) Pneumonia: (8) Hypoxia: Possible related to pneumonia initially, and developed fluid overload after resuscitation CT chest on admission showed right lower lobe consolidative opacities concerning for pneumonia and/or aspiration. COVID-19 PCR negative Influenza A/B negative RSV negative Procalcitonin: 39 --> 13 Initially was started on vanc and Zosyn. Out of concerns for EARL, changed Zosyn to cefepime. Sputum culture growing strep as well as MSSA Speech was consulted and reported no issues wtih aspiration on her examination and she initially improved on abx. Then further hypoxia is possibly 2/2 fluid overload after resuscitation efforts Repeat chest x-ray today showed pulmonary vascular congestion. Unchanged layering pleural effusions with bibasilar consolidation suggestive of atelectasis versus pneumonia. Currently on 5 L oxygen supplement via oxygen mask Completed the course of antibiotic with Unasyn Solumedrol was discontinued , then transition to PO Prednisone 40mg daily, will taper to 20 mg in a.m. Continue lasix 20mg IV BID Clinically much better and awaiting placement We will continue with oral Lasix on discharge She has been on home oxygen and mentions that her oxygen requirements has gone down since she has been in the hospital (9) Atrial fibrillation with rapid ventricular response: New onset atrial fibrillation with RVR overnight in setting of pulmonary illness and possible fluid overload after resuscitation from sepsis. Currently on normal sinus rhythm with rate stable Cardiology on board ECHO showed LV function is well-preserved and no significant valvular pathology. No additional recommendations at this time. carvedilol on hold We will put back on carvedilol with hold parameters Bradycardia HR dropped btw 30 to 40 Asymptomatic Carvedilol 3.125 mg on hold due to bradycardia Continue monitor -will not restart carvedilol as long as heart rate remains low as per contract preparer (10) UTI (urinary tract infection): Urine culture grew Enterococcus faecalis Received IV Vanco (11) Sepsis: Resuscitated. Cont antibiotics. (12) Abdominal pain: Initially was resolved, however, appeared to withdraw from pain during exam this morning. She is altered and on BIPAP, actively trying to remove her mask and with mitts on. She is not a reliable historian at this time. During this admission, in the setting of abdominal pain with cirrhosis, hyperbilirubinemia and cholelithiasis she was also seen by gastroenterology and surgery who felt no further workup or treatments were warranted. Her elevated total bilirubin and tender abdomen was thought to be possibly secondary to infection or sepsis versus decompensated cirrhosis. As this has improved with treatment of her infection and it was more likely the former. Defer further workup to ICU team as needed. CT also found that endometrium is abnormally thickened for age which will be not emergently evaluated with a pelvic ultrasound and WANIGAN CLERK evaluation as outpatient. Currently denies abdominal pain (13) Hypertension: We will hold bp meds due to low hemoglobin from GI bleed Amlodipine d/c and carvedilol on hold continue monitor BP (14) Fall: Patient remembers falling out of her bed -likely related to weakness in setting of metabolic encephalopathy which is now clearing. Min CK elevation expected. Likely improved after IVF resuscitation. CT head, cervical spine CT, chest CT, pelvic XR without evidence of acute trauma or fracture. Cont with Fall precautions, PT OT evaluation Awaiting rehab placement (15) Acute kidney injury superimposed on chronic kidney disease: Cr elevated at 1.36 (baseline ~ 0.9) in setting of dehydration and sepsis. Creatinine 1.7 today Nephrology on board Continue monitor BMP while getting IV Lasix as needed Nephrology on board -appreciate input and recommendation Case discussed with nephrology that recommended to continue lasix IV 20mg BID Continue monitor BMP while on IV Lasix We will check PRP tomorrow-creatinine remains stable (16) PAD (peripheral artery disease): chronic, stable. S/p stent L subclavian, superior mesenteric artery, L iliac and fempop bypass Follows with Dr. Andrade of vascular surgery in [place] Continue to hold aspirin, plavix, statin due to active GI bleed (17) Cirrhosis: Diagnosed in January 2021, [place], She is at risk for hypervolemia so we will be cautious with IV fluids. Possibly more hypervolemic now. Ammonia level was checked yesterday and was <10, so somnolence was not thought to be related to hepatic encephalopathy, however, this could be reassessed with declined mental status today. (18) DM II (diabetes mellitus, type II), controlled: A1c 9.4 reflecting poor overall control. Pharmacy on board for glycemic management Blood sugar elevated about 400, started on IV insulin drip Continue monitor blood sugar (19) COPD (chronic obstructive pulmonary disease): chronic, stable-no wheezing. Does not require O2 at baseline. Former smoker. Continue Anoro Ellipda, Albuterol inh PRN (20) Hypothyroidism: Continue levothyroxine per home regimen. (21) Thickened endometrium: Esophageal varices with a small volume of abdominal pelvic ascites and splenomegaly indicating portal hypertension is present. There is also wall thickening of the right colon with mild pericolic infiltration which could present a nonspecific colitis. She continues on antibiotics and would appreciate gastroenterology thoughts on this. Endometrium is abnormally thickened for age which will be not emergently evaluated with a pelvic ultrasound and WANIGAN CLERK evaluation as outpatient. (22) Aneurysm of infrarenal abdominal aorta: incidental finding on CT scan. Follow-up as outpatient for monitoring. (23) DVT prophylaxis: DVT Ppx: Heparin on hold due to active GI bleed Code status: DNR Dispo Continue to monitor closely Discussed with the daughter and possible discharge this afternoon if [facility] accepts the patient with C. difficile infection Total Time Total Time Spent Total Time Spent (In Minutes): 45 minutes Discharge Plan Discharge Items Patient Disposition: Transfer Custodial Fac Reason For Visit: FALL, AMS, SEPSIS, PNA Discharge Diagnosis: Acute metabolic and couple apathy -resolved , pneumonia with hypoxia required ICU care, GI bleed, grade 1 esophageal varices without any bleeding on EGD, C. difficile colitis, A. fib with RVR, EARL on CKD, cirrhosis of liver, type 2 diabetes, COPD Condition on Discharge: Fair Activity: As commented below Activity Comment: Will need continued PT and OT Non-emergency contact: Primary Care Provider Call non-emergency contact if: you have any medication questions and your symptoms worsen Follow-up/Referrals: Guido Valera [Primary Care Provider] - (Please make an appointment with your PCP within 7 days following discharge from the facility. Will need to see Dr. Orosco, the guard entrance registrar in 2 to 4 weeks) Diet: Carb Consistent or DM2 Diet Texture: Easy to Chew Addtl Attending Provider Instructions: Please take precautions to avoid falls Continue to take oxygen as advised Maintain C. difficile colitis precaution Continue medications as advised Addtl Hand Tool Filer Provider Instructions: DISCHARGE RECOMMENDATIONS-From Guest Experience Representative -lasix 20 mg every other day po or every day if 02 needs increasing or worsening vascular congestion -hospital discharge appt with me in [facility] in 2-4 weeks -weekly bmp until she sees me to be ordered by nephro -OK to resume OP coreg and OP K supplements; would continue to hold losartan at d/c -would continue gabapentin at current lower dose 300 mg hs given renal dysfunction and not prior OP dosing Pending Studies at Discharge: No Stand-Alone Forms: My [facility] Skilled Items Patient informed of condition?: Yes DNR: Yes Discharge Level of Care: Skilled Communicable Disease: No Discharge Prognosis: Stable Lines: None Urinary Catheter: No Medications and DC Order Prescriptions: New hydrocortisone 1 % Ointment 1 applic EXT BID 30 Days Qty: 30 RF: 0 pantoprazole 40 mg Tablet,Delayed Release (Dr/Ec) 40 mg PO QAM 30 Days Qty: 30 RF: 0 vancomycin 125 mg capsule 125 mg PO QID 10 Days Qty: 40 RF: 0 prednisone 10 mg tablet 10 mg PO UD Qty: 15 RF: 0 gabapentin 300 mg Capsule 300 mg PO HS 30 Days Qty: 30 RF: 0 furosemide [Lasix] 20 mg tablet 20 mg PO Q OTHER DAY Qty: 30 RF: 0 Continued ferrous sulfate [FeroSul] 325 mg (65 mg iron) tablet 325 mg PO DAILY Qty: 30 RF: 0 atorvastatin 20 mg tablet 20 mg PO QAM RF: 0 clopidogrel 75 mg tablet 75 mg PO QAM RF: 0 aspirin [Aspirin Low Dose] 81 mg Tablet,Delayed Release (Dr/Ec) 81 mg PO QAM RF: 0 levothyroxine 88 mcg tablet 88 mcg PO QAM RF: 0 albuterol sulfate [Ventolin HFA] 90 mcg/actuation HFA aerosol inhaler 2 puff inhalation Q4H PRN (Reason: Wheezing) RF: 0 famotidine 40 mg tablet 40 mg PO HS RF: 0 lidocaine 4 % adhesive patch,medicated 1 patch topical DAILY 30 Days Qty: 30 RF: 2 ipratropium-albuterol 0.5 mg-3 mg(2.5 mg base)/3 mL solution for nebulization 3 ml INHALATION DIRECTED RF: 0 potassium chloride 10 mEq Capsule, Extended Release 10 meq PO DAILY RF: 0 Anoro Ellipta 62.5-25 mcg/actuation Blister With Device 1 inh INHALATION DAILY RF: 0 Tresiba FlexTouch U-200 200 unit/mL (3 mL) insulin pen 15 unit subcut QAM RF: 0 carvedilol 6.25 mg tablet 6.25 mg PO BID Qty: 0 RF: 0 Changed Januvia 100 mg Tablet 50 mg PO DAILY Qty: 0 RF: 0 Discontinued losartan 50 mg tablet 50 mg PO HS RF: 0 gabapentin 300 mg Capsule 600 mg PO TID RF: 0 Discharge Orders: Discharge Order (Routine); Ordered 11/26/21 Ordered By: Ed Licea Admission Data Admit Date/Time: 11/08/21 20:23 Attending Provider: Ed Licea Admit Provider: Surekha Singh Primary Care Provider: Guido Valera Other Providers: Michael Bhat ; Surekha Singh ; Terell Quijano ; Carlos Anton ; Adeel Car ; Debora Snow ; Maryann Pena Other Interventions: Discharge Summary Assessment (RN) Last Done: 11/26/21 17:27 Supervising Physician Co-Signing Physician Notes Attg add: I interviewed and examined pt, reviewed chart and labs. No further gross bleeding, hgb stable. BUN remains increased. Will plan EGD today.
== END 2021-11-26 17:45 | DRG 871 ==
LOC: ED 14:38 → EDINP 20:23 → SUATTDRO 20:23 → 1E 22:03 → 2S 11-21 18:45

== ENCOUNTER 2022-01-01 12:26 | Inpatient (IN) ==
[2022-01-01] MEDS ORDERED: DEXTROSE 50% 50 ML SYRINGE IV ONE (12:41)
[2022-01-01 13:26] LABS: Basophils # (auto) 0.03 K/uL (0-0.2); Basophils % (auto) 0.6 %; Eosinophils # (auto) 0.07 K/uL (0-0.5); Eosinophils % (auto) 1.4 %; Hematocrit (blood only) 36.3 % (37-47); Hemoglobin 11.6 g/dL (12.0-16.0); Immature Granulocytes # (auto) 0.04 K/uL (0.00-0.02); Immature Granulocytes % (auto) 0.8 %; Lymphocytes # (auto) 1.21 K/uL (1.2-3.4); Lymphocytes % (auto) 24.4 %; Mean Corpuscular Hemoglobin 28.3 pg (25-34); Mean Corpuscular Volume 88.5 fL (80-100); Mean Platelet Volume 11.1 fL (7.4-10.4); Monocytes # (auto) 0.59 K/uL (0.11-0.59); Monocytes % (auto) 11.9 %; Neutrophils # (auto) 3.01 K/uL (1.4-6.5); Neutrophils % (auto) 60.9 %; Platelet Count 113 K/uL (130-400); RDW Coefficient of Variation 16.3 % (11.5-14.5); RDW Standard Deviation 51.4 fL (36.4-46.3); White Blood Count 4.95 K/uL (4.8-10.8)
[2022-01-01 13:39] LABS: INR 1.1 (0.9-1.1); Partial Thromboplastin Ratio 1.1; Partial Thromboplastin Time 29.7 Seconds (21.0-31.0); Prothrombin Time 10.7 Seconds (9.0-12.0)
[2022-01-01 13:39] LABS: Appearance Urine Cloudy (Clear); Bacteria Urine Automated 2+ (Negative); Bilirubin Urine Negative (Negative); Blood Urine Trace (Negative); Cast Urine Automated 0 /lpf (0-5); Color Urine Yellow; Epithelial Cell Urine Auto 0-5 /lpf (0-5); Glucose Urine UA Negative (Negative); Ketones Urine Negative (Negative); Leukocyte Esterase Urine 3+ (Negative); Nitrite Urine Negative (Negative); Protein Urine Negative (Negative); RBC Urine Automated 0-4 /hpf (0-4); Specific Gravity Urine 1.008 (1.000-1.030); Urobilinogen Urine Negative (Negative); WBC Urine Automated >30 /hpf (0-5)
--- NOTE | 2022-01-01 13:52 | XRay Report ---
XR chest 1V portable CLINICAL HISTORY: SEPSIS COMPARISON STUDY: Chest radiograph November 26, 2021. Chest CT November 08, 2021. FINDINGS: No pneumothorax or pleural effusion is noted. There is no evidence for pulmonary edema. Car diomediastinal silhouette is stable. Vascular stent projects over the left upper hemithorax. There is suspected right basilar airspace opacity. Skin fold project over the right chest. IMPRESSION: Right basilar airspace opacity. This may reflect a focus of pneumonia. Radiographic foll ow-up to ensure resolution is recommended. ACT 112: Negative or not required by law. Electronically signed by: Phan Camarillo M.D. 01/01/2022 1:50 PM
[2022-01-01 14:06] LABS: Alanine Aminotransferase 18 U/L (7-52); Albumin Level 3.5 gm/dl (3.4-5.0); Alkaline Phosphatase 123 U/L (34-104); Anion Gap 6 (3-11); BUN Creatinine Ratio 38.3 (10-20); Bilirubin,Total 0.9 mg/dl (0.2-1.0); Blood Urea Nitrogen 57 mg/dl (6-23); Calcium 9.1 mg/dl (8.5-10.1); Carbon Dioxide 14 mmol/L (21-32); Chloride 115 mmol/L (98-107); Creatinine Clr Calc Pharmacy 22.6 ml/min; Est GFR (African American) 36.7 ml/min; Est GFR (Non-African American) 31.7 ml/min; Globulin 3.4 gm/dl (2.5-4.0); Glucose 188 mg/dl (70-99(Fasting)); Magnesium 1.8 mg/dl (1.7-2.4); Sodium 135 mmol/L (136-145); Total Protein 6.9 gm/dl (6.0-8.3); Troponin I < 0.03 ng/ml (0-0.04)
[2022-01-01] MEDS ORDERED: CEFEPIME 2,000 MG/20 ML VIAL IV STA (14:06)
[2022-01-01] MEDS ORDERED: VANCOMYCIN CONSULT ACTIVE PRN (14:06)
[2022-01-01] MEDS ORDERED: VANCOMYCIN HCL 1,250 MG in SODIUM CHLORIDE 0.9% 500 ML IV ONE (14:06)
[2022-01-01 14:12] LABS: Influenza A virus by PCR Negative (Negative); Influenza B virus by PCR Negative (Negative)
--- NOTE | 2022-01-01 15:12 | CT Scan Report ---
HEAD CT NONCONTRAST CT DOSE: 1094.67 mGycm HISTORY: Altered mental status. TECHNIQUE: Multiaxial CT images of the head were performed without the use of intravenous contrast. A utomated exposure control was utilized for this study. A dose lowering technique was utilized adheri ng to the principles of ALARA. Comparison: Head CT 11/08/2021. Findings: Motion artifact. Old postoperative changes within the left posterior maxilla, unchanged. Th e paranasal sinuses and mastoid air cells are clear. The calvarium and skull base are intact. The maida tricles and sulci are within normal limits. There is no mass, hematoma, midline shift, or acute infar ct. Impression: Motion artifact. No definite acute intracranial abnormality. ACT 112: Negative or not required by law. Electronically signed by: Sunday Enciso M.D. 01/01/2022 3:11 PM
--- NOTE | 2022-01-01 16:13 | History & Physical Report ---
Date of Service January 01, 2022 Assessment & Plan (1) Acute metabolic encephalopathy: (2) Acute UTI: Plan: -Admit to [facility] with telemetry -Acute confusion likely secondary to infection, UA appears to be grossly infected, follow urine culture -Outpatient prelim culture 12/31 grew out >100,000 lactose fermenting gram neg rods from [facility] chart review -Patient received a dose of vancomycin in the ER, will switch to IV ceftriaxone -history of C. difficile, therefore will give probiotic. Low threshold to check for C. difficile if patient develops diarrhea. -Does not appear to have new onset of pneumonia, CXR reviewed by myself and attending: Appears to be resolving pneumonia compared to her last hospital stay. Patient denies any respiratory symptoms including shortness of breath, cough, difficulty with chewing or swallowing. -Cr stable (3) Hypoglycemic episode in patient with diabetes mellitus: (4) DM II (diabetes mellitus, type II), controlled: Plan: -Holding standing insulin with meals, Trulicity as patient was hypoglycemic earlier today. Unknown if she received extra doses of Lantus last night while at [facility]? Or missed a meal? 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 fib with RVR in the setting of acute systemic noncardiac illness, spontaneous conversion to sinus rhythm. She was followed by cardiology during that. Her antiplatelets were held due to GI bleed during that time. - Holding coreg with prior hx of bradycardia, put back on if tachycardic or develops afib (8) PAD (peripheral artery disease): Plan: -Chronic, stable (9) Hypothyroidism: Plan: -Continue levothyroxine -Check TSH with free T4 (10) Cirrhosis: Plan: - Hx of such, stable - Continue diuretics as above - Previously caused thrombocytopenia but now improved. LFTs appear to be improved as well. DVT ppx: - teds, scds, aspirin and Plavix CODE: DNR/DNI Dispo: From home, likely to remain in the hospital x 1-2 days History of Present Illness Chief Complaint: Altered mental status Primary Care Provider: Guido Valera This is an 86-year-old female with PMHx of PAD s/p stent L subclavian, superior mesenteric artery, L iliac and fempop bypass, infrarenal AAA measuring 3.9 cm, HTN, HLD, CKD III, insulin dependent DM II, COPD, hypothyroidism, history of C. difficile in May 2021. Patient was recently admitted here for a prolonged stay at [facility] from 11/11-11/27 2021 for sepsis secondary to UTI with Enterococcus faecalis, anemia secondary to GI bleed where she required transfusion, C. difficile colitis where she was treated with oral Vanco, thrombocytopenia secondary to history of cirrhosis and acute GI bleed, transaminitis, hypokalemia. She her course was further complicated by developing pneumonia where she was treated with IV Unasyn during this hospital stay, as well as new onset A. fib with RVR in the setting of pulmonary illness and fluid overload after resuscitation from sepsis. Daughter is present at bedside. Reports pt was discharged from [facility] 1 week ago, and went to [facility] and has been staying in her own apartment, and lives by herself. Last Monday she started feeling weak. Family noticed that she was having difficulty picking things up with both of her hands. Yesterday morning her glucose was ok. She returned to [facility] yesterday because of difficulty walking and weakness and stayed overnight. [facility] told daughter that she should bring the hospital due to worsening status. She had started wearing adult diapers while at [facility] due to incontinence, and likely because of the addition of diuretics during that stay. Daughter reports increased swelling in her legs during stay at [facility] so was placed on aldactone and lasix. Patient noticed increased frequency worse within the past 2 to 3 days. Denies hematuria and dysuria. Pt has been following outpatient with nephrology and was told her Cr. function was slightly lower, and was instructed to keep taking lasix 20 mg daily and spironolactone once daily. She presents today from home via EMS for increased confusion and altered mental status per family. She was nonresponsive per [facility], she had a glucose level of 40 in the field and treated with glucose replacement, with glucose up to 60 upon arrival to the ER, so was given 1 amp of dextrose. She is now more awake however continues to mumble her speech at times. Allergies Allergy/AdvReac Type Severity Reaction Status Date / Time vitamin E (d-alpha Allergy Intermediate ITCHY Unverified 01/01/22 16:17 tocopherol) RASH, HIVES--PER [facility] 09/21/21 ENCOUNTER amoxicillin AdvReac Intermediate STOMACH Unverified 01/01/22 16:17 UPSET--PER [facility] 09/21/21 ENCOUNTER clavulanic acid AdvReac Intermediate STOMACH Unverified 01/01/22 16:17 UPSET--PER [facility] 09/21/21 ENCOUNTER Home Medications Medication Instructions Recorded Confirmed Type albuterol sulfate 90 mcg/actuation 2 puff INHALATION Q4H PRN 04/10/19 01/01/22 History aerosol inhaler (Ventolin HFA) aspirin 81 mg tablet,delayed 81 mg PO QAM 04/10/19 01/01/22 History release (Aspirin Low Dose) atorvastatin 20 mg tablet 20 mg PO QAM 04/10/19 01/01/22 History clopidogrel 75 mg tablet 75 mg PO QAM 04/10/19 01/01/22 History levothyroxine 88 mcg tablet 88 mcg PO QAM 04/10/19 01/01/22 History famotidine 40 mg tablet 40 mg PO DAILYBB 03/29/21 01/01/22 History ipratropium 0.5 mg-albuterol 3 mg 3 ml INHALATION Q6 11/08/21 01/01/22 History (2.5 mg base)/3 mL nebulization soln umeclidinium 62.5 mcg-vilanterol 1 inh INHALATION QAM 11/08/21 01/01/22 History 25 mcg/actuation powdr for inhalation (Anoro Ellipta) Saccharomyces boulardii 250 mg 250 mg PO AC 01/01/22 01/01/22 History capsule acetaminophen 325 mg tablet 650 mg PO Q4 PRN MDD 3g 01/01/22 01/01/22 History (Tylenol) ferrous sulfate 325 mg (65 mg 325 mg PO QAM 01/01/22 01/01/22 History iron) tablet (FeroSul) furosemide 40 mg tablet 20 mg PO DAILY 01/01/22 01/01/22 History gabapentin 300 mg capsule 300 mg PO HS 01/01/22 01/01/22 History guaifenesin 600 mg tablet, 600 mg PO BID 01/01/22 01/01/22 History extended release 12 hr (Mucus Relief ER) insulin aspart U-100 100 unit/mL 16 unit SUBCUT AC 01/01/22 01/01/22 History (3 mL) subcutaneous pen insulin degludec 200 unit/mL (3 18 unit SUBCUT DAILY 01/01/22 01/01/22 History mL) subcutaneous pen (Tresiba FlexTouch U-200 insulin) pantoprazole 40 mg tablet,delayed 40 mg PO DAILY 01/01/22 01/01/22 History release (Protonix) sitagliptin 50 mg tablet (Januvia) 50 mg PO QAM 01/01/22 01/01/22 History spironolactone 25 mg tablet 25 mg PO TID 01/01/22 01/01/22 History Past Med/Surg History Medical History Abdominal pain Acute metabolic encephalopathy Anemia Aneurysm of infrarenal abdominal aorta Cirrhosis COPD (chronic obstructive pulmonary disease) DM II (diabetes mellitus, type II), controlled Emphysema Epigastric abdominal pain GI bleed HLD (hyperlipidemia) Hypertension Hypothyroidism PAD (peripheral artery disease) PAF (paroxysmal atrial fibrillation) Pneumonia Sepsis Shortness of breath Surgical History History of appendectomy History of intravascular stent placement Reported Left subclavian, superior mesenteric artery, L iliac, L fempop bypass - [facility] And[facility] Family History Other Diabetes Hypertension Social History Smoking Status: Former smoker Hx Alcohol Use: No Hx Substance Use: No Preferred Language: Spanish Communication Ability: Effective 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 Beliefs That Will Affect Care: None marital status: / Current Living Situation: Alone Current Living Situation Comment: unable to determine How many Children do You have: 3 Feels Safe at Home: Yes Assistive Devices: Denture - Upper, Denture - Lower and Oxygen - Continuous Review of Systems Review of Systems: Constitutional: No fever, sweats or chills Eyes: No diplopia, no worsening or blurred vision ENT: normal hearing, no trouble swallowing Respiratory: No cough, sputum, dyspnea at rest or on exertion Cardiovascular: No chest pain, tightness or palpitations Abdomen: No pain, nausea, vomiting, diarrhea or constipation Musculoskeletal: No joint pain, calf pain, swelling : denies dysuria, but admits to increased frequency. Has been wearing adult diapers at home. Neurologic: No weakness, numbness/tingling, or balance problems Psychiatric: No anxiety or depression Skin: No rash or itch Physical Exam Physical Exam: General: awake, alert, no apparent distress Head: Normocephalic, atraumatic ENT: PERRL, EOMI, no pharyngeal exudate, mucous membranes moist Chest: Clear to auscultation, on room air, no adventitious breath sounds Cardiac: Regular rate and rhythm, no murmur, no JVD, normal peripheral pulses, good capillary refill Abdominal: NABS x 4 quadrants, soft, nondistended, nontender to palpation, no rebound or guarding Extremities: Normal inspection, no peripheral edema or erythema, calfs nontender to palpation Psych: Normal mood and affect Neuro: AAO x 3, thought process is occasionally confused and mumbled speech, strength intact bilaterally and rated 3/5 in lower extremities and 4/5 in upper extremities bilaterally, no motor deficits, speech is clear, no peripheral sensory deficits Results & Data Results & Data ([facility]) Vital Signs (Past 12 Hours) Vital Signs Temp Pulse Pulse Resp BP BP Pulse Ox 01/01/22 14:31 70 22 140/80 93 01/01/22 14:30 72 14 96 01/01/22 14:04 71 18 153/82 H 97 01/01/22 14:00 69 14 97 01/01/22 13:30 67 20 96 01/01/22 13:18 69 20 95 01/01/22 13:00 65 20 95 01/01/22 12:54 36.7 C 66 65 20 142/93 H 142/93 H 95 01/01/22 12:37 66 15 96 Laboratory Results 01/01/22 13:14 Urine Culture - Pending Urine,Straight Cath 01/01/22 13:00 Aerobic Blood Culture - Pending Blood Anaerobic Blood Culture - Pending 01/01/22 13:06 Aerobic Blood Culture - Pending Blood Anaerobic Blood Culture - Pending 01/01/22 01/01/2201/01/22 Unknown 16:18 15:47 WBC RBC Hgb Hct MCV MCH MCHC RDW Std Deviation RDW Coeff of Daniela Plt Count MPV Immature Gran % (Auto) Neut % (Auto) Lymph % (Auto) [place] % (Auto) Eos % (Auto) Baso % (Auto) Neut # (Auto) Lymph # (Auto) [place] # (Auto) Eos # (Auto) Baso # (Auto) Immature Gran # (Auto) PT INR APTT PTT Ratio Sodium Potassium 4.8 Chloride Carbon Dioxide Anion Gap BUN Creatinine Est Cr Clr Drug Dosing Est GFR ( Amer) Est GFR (Non-Af Amer) BUN/Creatinine Ratio Glucose POC Glucose 75 Lactate Calcium Magnesium Total Bilirubin AST 26 ALT Alkaline Phosphatase Troponin I Total Protein Albumin Globulin Albumin/Globulin Ratio Procalcitonin Urine Color Urine Appearance Urine pH Ur Specific [place] Urine Protein Urine Glucose (UA) Urine Ketones Urine Blood Urine Nitrite Urine Bilirubin Urine Urobilinogen Ur Leukocyte Esterase Urine WBC (Auto) Urine RBC (Auto) U Hyaline Cast (Auto) U Epithel Cells (Auto) Urine Bacteria (Auto) Influ A Molecular Assay Influ B Molecular Assay SARS-CoV-2, RNA, NAAT NEGATIVE 01/01/22 01/01/22 01/01/22 14:20 13:19 13:14 WBC RBC Hgb Hct MCV MCH MCHC RDW Std Deviation RDW Coeff of Daniela Plt Count MPV Immature Gran % (Auto) Neut % (Auto) Lymph % (Auto) [place] % (Auto) Eos % (Auto) Baso % (Auto) Neut # (Auto) Lymph # (Auto) [place] # (Auto) Eos # (Auto) Baso # (Auto) Immature Gran # (Auto) PT INR APTT PTT Ratio Sodium Potassium Chloride Carbon Dioxide Anion Gap BUN Creatinine Est Cr Clr Drug Dosing Est GFR ( Amer) Est GFR (Non-Af Amer) BUN/Creatinine Ratio Glucose POC Glucose 104 H 150 H Lactate Calcium Magnesium Total Bilirubin AST ALT Alkaline Phosphatase Troponin I Total Protein Albumin Globulin Albumin/Globulin Ratio Procalcitonin Urine Color Urine Appearance Urine pH Ur Specific [place] Urine Protein Urine Glucose (UA) Urine Ketones Urine Blood Urine Nitrite Urine Bilirubin Urine Urobilinogen Ur Leukocyte Esterase Urine WBC (Auto) Urine RBC (Auto) U Hyaline Cast (Auto) U Epithel Cells (Auto) Urine Bacteria (Auto) Influ A Molecular Assay Negative Influ B Molecular Assay Negative SARS-CoV-2, RNA, NAAT 01/01/22 01/01/22 01/01/22 13:14 13:06 13:06 WBC RBC Hgb Hct MCV MCH MCHC RDW Std Deviation RDW Coeff of Daniela Plt Count MPV Immature Gran % (Auto) Neut % (Auto) Lymph % (Auto) [place] % (Auto) Eos % (Auto) Baso % (Auto) Neut # (Auto) Lymph # (Auto) [place] # (Auto) Eos # (Auto) Baso # (Auto) Immature Gran # (Auto) PT 10.7 INR 1.1 APTT 29.7 PTT Ratio 1.1 Sodium Potassium Chloride Carbon Dioxide Anion Gap BUN Creatinine Est Cr Clr Drug Dosing Est GFR ( Amer) Est GFR (Non-Af Amer) BUN/Creatinine Ratio Glucose POC Glucose Lactate 0.8 Calcium Magnesium Total Bilirubin AST ALT Alkaline Phosphatase Troponin I Total Protein Albumin Globulin Albumin/Globulin Ratio Procalcitonin Urine Color Yellow Urine Appearance Cloudy A Urine pH 5.0 Ur Specific [place] 1.008 Urine Protein Negative Urine Glucose (UA) Negative Urine Ketones Negative Urine Blood Trace H Urine Nitrite Negative Urine Bilirubin Negative Urine Urobilinogen Negative Ur Leukocyte Esterase 3+ H Urine WBC (Auto) >30 H Urine RBC (Auto) 0-4 U Hyaline Cast (Auto) 0 U Epithel Cells (Auto) 0-5 Urine Bacteria (Auto) 2+ H Influ A Molecular Assay Influ B Molecular Assay SARS-CoV-2, RNA, NAAT 01/01/22 01/01/22 01/01/22 13:06 13:06 13:06 WBC 4.95 RBC 4.10 L Hgb 11.6 L Hct 36.3 L MCV 88.5 MCH 28.3 MCHC 32.0 RDW Std Deviation 51.4 H RDW Coeff of Daniela 16.3 H Plt Count 113 L MPV 11.1 H Immature Gran % (Auto) 0.8 Neut % (Auto) 60.9 Lymph % (Auto) 24.4 [place] % (Auto) 11.9 Eos % (Auto) 1.4 Baso % (Auto) 0.6 Neut # (Auto) 3.01 Lymph # (Auto) 1.21 [place] # (Auto) 0.59 Eos # (Auto) 0.07 Baso # (Auto) 0.03 Immature Gran # (Auto) 0.04 H PT INR APTT PTT Ratio Sodium 135 L Potassium TNP Chloride 115 H Carbon Dioxide 14 L Anion Gap 6 BUN 57 H Creatinine 1.49 H Est Cr Clr Drug Dosing 22.6 Est GFR ( Amer) 36.7 Est GFR (Non-Af Amer) 31.7 BUN/Creatinine Ratio 38.3 H Glucose 188 H POC Glucose Lactate Calcium 9.1 Magnesium 1.8 Total Bilirubin 0.9 AST TNP ALT 18 Alkaline Phosphatase 123 H Troponin I < 0.03 Total Protein 6.9 Albumin 3.5 Globulin 3.4 Albumin/Globulin Ratio 1.0 Procalcitonin 0.06 Urine Color Urine Appearance Urine pH Ur Specific [place] Urine Protein Urine Glucose (UA) Urine Ketones Urine Blood Urine Nitrite Urine Bilirubin Urine Urobilinogen Ur Leukocyte Esterase Urine WBC (Auto) Urine RBC (Auto) U Hyaline Cast (Auto) U Epithel Cells (Auto) Urine Bacteria (Auto) Influ A Molecular Assay Influ B Molecular Assay SARS-CoV-2, RNA, NAAT 01/01/22 12:40 WBC RBC Hgb Hct MCV MCH MCHC RDW Std Deviation RDW Coeff of Daniela Plt Count MPV Immature Gran % (Auto) Neut % (Auto) Lymph % (Auto) [place] % (Auto) Eos % (Auto) Baso % (Auto) Neut # (Auto) Lymph # (Auto) [place] # (Auto) Eos # (Auto) Baso # (Auto) Immature Gran # (Auto) PT INR APTT PTT Ratio Sodium Potassium Chloride Carbon Dioxide Anion Gap BUN Creatinine Est Cr Clr Drug Dosing Est GFR ( Amer) Est GFR (Non-Af Amer) BUN/Creatinine Ratio Glucose POC Glucose 46 L* Lactate Calcium Magnesium Total Bilirubin AST ALT Alkaline Phosphatase Troponin I Total Protein Albumin Globulin Albumin/Globulin Ratio Procalcitonin Urine Color Urine Appearance Urine pH Ur Specific [place] Urine Protein Urine Glucose (UA) Urine Ketones Urine Blood Urine Nitrite Urine Bilirubin Urine Urobilinogen Ur Leukocyte Esterase Urine WBC (Auto) Urine RBC (Auto) U Hyaline Cast (Auto) U Epithel Cells (Auto) Urine Bacteria (Auto) Influ A Molecular Assay Influ B Molecular Assay SARS-CoV-2, RNA, NAAT Diagnostic Findings Chest X-Ray 01/01/22 12:49 XR chest 1V portable CLINICAL HISTORY: SEPSIS COMPARISON STUDY: Chest radiograph November 26, 2021. Chest CT November 08, 2021. FINDINGS: No pneumothorax or pleural effusion is noted. There is no evidence for pulmonary edema. Cardiomediastinal silhouette is stable. Vascular stent projects over the left upper hemithorax. There is suspected right basilar airspace opacity. Skin fold project over the right chest. IMPRESSION: Right basilar airspace opacity. This may reflect a focus of pneumonia. Radiographic follow-up to ensure resolution is recommended. ACT 112: Negative or not required by law. Electronically signed by: Phan Camarillo M.D. 01/01/2022 1:[address] 01/01/22 12:[address] DOSE: 1094.67 mGycm HISTORY: Altered mental status. TECHNIQUE: Multiaxial CT images of the head were performed without the use of intravenous contrast. Automated exposure control was utilized for this study. A dose lowering technique was utilized adhering to the principles of ALARA. Comparison: Head CT 11/08/2021. Findings: Motion artifact. Old postoperative changes within the left posterior maxilla, unchanged. The paranasal sinuses and mastoid air cells are clear. The calvarium and skull base are intact. The ventricles and sulci are within normal limits. There is no mass, hematoma, midline shift, or acute infarct. Impression: Motion artifact. No definite acute intracranial abnormality. ACT 112: Negative or not required by law. Electronically signed by: Sunday Enciso M.D. 01/01/2022 3:11 PM Code Status & VTE Plan Code Status DNR/DNI - discussed with patient and her daughter at bedside. Daughter is POA along with her brother. Supervising Physician Co-Signing Physician Notes Pt is a 86 y/o F with hx of cirrhosis with esophageal varices, COPD, IDDM, Severe PAD s/p L subclavian stent, L fem-pop bypass, AAA, HTN, hypothyroidism, thrombocytopenia, CKD III, recent admission for GI complicated with Afib with rvr spontaneous resolution to sinus rhythm, bradycardia, pneumonia and C.diff infection (completed PO vanc) admitted for AMS and UTI with hypoglycemia. PE: NAD, mildly cachetic Lungs: Good air entry b/l, mild Rales on L lower lobe, no wheezing Cardiac: normal S1/s2, no murmur Abd: ND, soft, NT Neuro: CN II-XII intact, EOMI, PERRLA, normal motor strength Psych: AAOX1, appeared drowsy A/P: Metabolic encephalopathy: -12/08 Hypoglycemia + UTI -per family pt did not eat much for dinner and breakfast but received her Tresiba today morning - will check TSH and hold pts novolog TID ---- will continue ISS -pts UCx from 12/31/21 growing G- lactose fermenting bacilli --- will continue Ceftriaxone IV -normal neuro exam: not suspecting TIA or CVA at this time - CT head: no acute finding -CXR showed Right basilar airspace opacity. ----- lungs exam was overall good. Not suspecting recurrent pneumonia but will do aspiration precaution and continue her on ceftriaxone for UTI -PT/OT eval Cirrhosis with esophageal varices, HTN, CKD III and hx of Afib: -hgb is better and Cr is near the baseline -Currently in sinus rhythm: pt had bradycardia during last hospital stay ---- Coreg was tapered off during her SNF and on discharge ---- will monitor HR and Vitals w/o coreg ---- if develop tachycardia then EKG and consider restarting coreg -Will continue Lasix daily and aldactone TID -admitted to tele Agree with A/P by Daphney Nation PA-C
[2022-01-01 16:31] LABS: Potassium 4.8 mmol/L (3.5-5.1)
--- NOTE | 2022-01-01 16:41 | Emergency Department Note ---
History of Present Illness General Chief complaint: Altered Mental Status Time Seen by Provider: 01/01/22 12:41 Source: RN notes reviewed History of Present Illness Provider complaint: Altered mental status Onset (ago): day(s) 1 86-year-old female presents emergency department from [facility] for altered mental status. Per EMS the patient's blood glucose on arrival was 46. They gave her oral glucose and the patient's blood sugar went up transiently. No reported falls. Per EMS the patient is being treated for UTI. Home Medications Medication Instructions Recorded Confirmed Type albuterol sulfate 90 mcg/actuation 2 puff INHALATION Q4H PRN 04/10/19 01/01/22 History aerosol inhaler (Ventolin HFA) aspirin 81 mg tablet,delayed 81 mg PO QAM 04/10/19 01/01/22 History release (Aspirin Low Dose) atorvastatin 20 mg tablet 20 mg PO QAM 04/10/19 01/01/22 History clopidogrel 75 mg tablet 75 mg PO QAM 04/10/19 01/01/22 History levothyroxine 88 mcg tablet 88 mcg PO QAM 04/10/19 01/01/22 History famotidine 40 mg tablet 40 mg PO DAILYBB 03/29/21 01/01/22 History ipratropium 0.5 mg-albuterol 3 mg 3 ml INHALATION Q6 11/08/21 01/01/22 History (2.5 mg base)/3 mL nebulization soln umeclidinium 62.5 mcg-vilanterol 1 inh INHALATION QAM 11/08/21 01/01/22 History 25 mcg/actuation powdr for inhalation (Anoro Ellipta) Saccharomyces boulardii 250 mg 250 mg PO AC 01/01/22 01/01/22 History capsule acetaminophen 325 mg tablet 650 mg PO Q4 PRN MDD 3g 01/01/22 01/01/22 History (Tylenol) carvedilol 3.125 mg tablet 3.125 mg PO DAILY 01/01/22 01/01/22 History ferrous sulfate 325 mg (65 mg 325 mg PO QAM 01/01/22 01/01/22 History iron) tablet (FeroSul) furosemide 40 mg tablet 20 mg PO DAILY 01/01/22 01/01/22 History gabapentin 300 mg capsule 300 mg PO HS 01/01/22 01/01/22 History guaifenesin 600 mg tablet, 600 mg PO BID 01/01/22 01/01/22 History extended release 12 hr (Mucus Relief ER) insulin aspart U-100 100 unit/mL 16 unit SUBCUT AC 01/01/22 01/01/22 History (3 mL) subcutaneous pen insulin degludec 200 unit/mL (3 18 unit SUBCUT DAILY 01/01/22 01/01/22 History mL) subcutaneous pen (Tresiba FlexTouch U-200 insulin) pantoprazole 40 mg tablet,delayed 40 mg PO DAILY 01/01/22 01/01/22 History release (Protonix) sitagliptin 50 mg tablet (Januvia) 50 mg PO QAM 01/01/22 01/01/22 History spironolactone 25 mg tablet 25 mg PO TID 01/01/22 01/01/22 History Allergies Allergy/AdvReac Type Severity Reaction Status Date / Time vitamin E (d-alpha Allergy Intermediate ITCHY Unverified 01/01/22 16:17 tocopherol) RASH, HIVES--PER [facility] 09/21/21 ENCOUNTER amoxicillin AdvReac Intermediate STOMACH Unverified 01/01/22 16:17 UPSET--PER [facility] 09/21/21 ENCOUNTER clavulanic acid AdvReac Intermediate STOMACH Unverified 01/01/22 16:17 UPSET--PER [facility] 09/21/21 ENCOUNTER Past Med/Surg History Medical History Abdominal pain Acute metabolic encephalopathy Anemia Aneurysm of infrarenal abdominal aorta Cirrhosis COPD (chronic obstructive pulmonary disease) DM II (diabetes mellitus, type II), controlled Emphysema Epigastric abdominal pain GI bleed HLD (hyperlipidemia) Hypertension Hypothyroidism PAD (peripheral artery disease) PAF (paroxysmal atrial fibrillation) Pneumonia Sepsis Shortness of breath Surgical History History of appendectomy History of intravascular stent placement Reported Left subclavian, superior mesenteric artery, L iliac, L fempop bypass - Dr Andrade - [place] Family History Other Diabetes Hypertension Social History Smoking Status: Former smoker Hx Alcohol Use: No Hx Substance Use: No Preferred Language: Maori Communication Ability: Effective Brick Pointer Required: No Beliefs That Will Affect Care: None marital status: / Current Living Situation: Alone Current Living Situation Comment: unable to determine How many Children do You have: 3 Feels Safe at Home: Yes Assistive Devices: Denture - Upper, Denture - Lower and Oxygen - Continuous Review of Systems Unobtainable due to cognitive status Physical Exam Vital Signs Vital Signs - 24 hr 01/01/22 12:37 01/01/22 12:54 01/01/22 13:00 Temperature 36.7 C Temperature Source Oral Pulse Rate 66 66 65 Pulse Rate [Apical] 65 Pulse Rate from SpO2 Sensor 66 65 Respiratory Rate 15 20 20 Respiratory Effort / Characteristics Non-Labored Spontaneous Respiratory Depth Normal Respiratory Pattern Regular Blood Pressure 142/93 H Blood Pressure [Right Arm] 142/93 H Blood Pressure Mean 109 Blood Pressure Mean [Right Arm] 109 Blood Pressure Position [Right Arm] Pulse Oximetry 96 95 95 Oxygen Delivery Method Room Air Sepsis Recent Fever Within 48 Hours No Sepsis New/Unexplained Change in Mental Status Yes Sepsis Action Taken by Nursing No Action Required 01/01/22 13:18 01/01/22 13:30 01/01/22 14:00 Temperature Temperature Source Pulse Rate 69 67 69 Pulse Rate [Apical] Pulse Rate from SpO2 Sensor 67 69 Respiratory Rate 20 20 14 Respiratory Effort / Characteristics Respiratory Depth Respiratory Pattern Blood Pressure Blood Pressure [Right Arm] Blood Pressure Mean Blood Pressure Mean [Right Arm] Blood Pressure Position [Right Arm] Pulse Oximetry 95 96 97 Oxygen Delivery Method Room Air Sepsis Recent Fever Within 48 Hours Sepsis New/Unexplained Change in Mental Status Sepsis Action Taken by Nursing 01/01/22 14:04 01/01/22 14:30 01/01/22 14:31 Temperature Temperature Source Pulse Rate 71 72 70 Pulse Rate [Apical] Pulse Rate from SpO2 Sensor 71 71 71 Respiratory Rate 18 14 22 Respiratory Effort / Characteristics Respiratory Depth Respiratory Pattern Blood Pressure 153/82 H 140/80 Blood Pressure [Right Arm] Blood Pressure Mean 105 100 Blood Pressure Mean [Right Arm] Blood Pressure Position [Right Arm] Pulse Oximetry 97 96 93 Oxygen Delivery Method Sepsis Recent Fever Within 48 Hours Sepsis New/Unexplained Change in Mental Status Sepsis Action Taken by Nursing 01/01/22 16:00 Temperature Temperature Source Pulse Rate Pulse Rate [Apical] 72 Pulse Rate from SpO2 Sensor Respiratory Rate 20 Respiratory Effort / Characteristics Non-Labored Spontaneous Respiratory Depth Normal Respiratory Pattern Regular Blood Pressure Blood Pressure [Right Arm] 142/84 H Blood Pressure Mean Blood Pressure Mean [Right Arm] 103 Blood Pressure Position [Right Arm] Sitting Pulse Oximetry 98 Oxygen Delivery Method Room Air Sepsis Recent Fever Within 48 Hours Sepsis New/Unexplained Change in Mental Status Sepsis Action Taken by Nursing Physical Exam EYES: Conjunctivae and EOM are normal. Pupils are equal, round, and reactive to light. Right eye exhibits no discharge. Left eye exhibits no discharge. No scleral icterus. NECK: Normal range of motion. Neck supple. No JVD present. No spinous process tenderness present. No carotid bruit present. No rigidity. No tracheal deviation and normal range of motion present. No Brudzinski's sign and no Kernig's sign noted. CV: Normal rate, regular rhythm, normal heart sounds and intact distal pulses. There is no peripheral edema. Palpable radial pulses bue. PULM/CHEST: Rhonchi bilaterally. -Chest Wall: She exhibits no tenderness. ABD: The abdomen is soft. LYMPH: No cervical adenopathy. NEURO: Patient is patient grossly intact. Patient is confused and having garbled speech. SKIN: Skin is warm and dry. She is not diaphoretic. Course Course 1241: The patient was evaluated in room C12. A complete history and physical exam was performed Cardiac monitoring: An order was placed for continuous cardiac monitoring. The monitor shows a rate of 70 with sinus rhythm Patient's blood sugar low on arrival. 1 amp of D50 given to the patient. Sepsis protocols will be initiated given the history of recently being treated for UTI and altered mental status. 1350: Vital signs stable. Patient's Accu-Chek is improved. Patient's mental status is improved and her dysarthria has resolved. She is more alert however she is still confused. Family at bedside states the patient was discharged from [facility] and then taken back there because she was so weak. 1525: Vital signs stable. Labs show a UTI. X-ray shows pneumonia. Patient be treated with broad-spectrum antibiotics as she was recently treated for these and is in a shelter. Cefepime and vancomycin ordered for the patient. CT of the head is within normal limits. [facility]. Administered Medications Vancomycin HCl 1,250 mg/ (Sodium Chloride) 525 mls @ 200 mls/hr IV NOW ONE Stop: 01/01/22 16:43 Last Admin: 01/01/22 15:03 Dose: 200 mls/hr Documented by: [id number] Discontinued Medications Dextrose (Dextrose 50% 50 Ml Syringe) 50 ml IV NOW ONE Stop: 01/01/22 12:42 Last Admin: 01/01/22 12:49 Dose: 50 ml Documented by: [id number] Cefepime HCl (Maxipime) 2,000 mg in 20 mls @ 5 mls/min IV NOW STA; Protocol Stop: 01/01/22 14:09 Last Admin: 01/01/22 15:03 Dose: 5 mls/min Documented by: [id number] Critical Care Time Critical Care Time: Yes Total Critical Care Time: 38 I have personally spent greater than 38 minutes of critical care time in the direct management of this patient. This includes bedside care, interpretation of diagnostic studies, and testing, discussion with consultants, patient, and family members, and other required patient management activities. This 38 minutes is in excess of all separately billable procedures. Medical Decision Making Laboratory Data Result diagrams: 01/01/22 13:06 01/01/22 15:47 Lab Results 01/01/22 01/01/22 01/01/22 Range/Units 12:40 13:06 13:06 WBC (4.8-10.8) K/uL RBC (4.2-5.4) M/uL Hgb (12.0-16.0) g/dL Hct (37-47) % MCV (80-100) fL MCH (25-34) pg MCHC (32-36) g/dL RDW Std Deviation (36.4-46.3) fL RDW Coeff of Daniela (11.5-14.5) % Plt Count (130-400) K/uL MPV (7.4-10.4) fL Immature Gran % (Auto) % Neut % (Auto) % Lymph % (Auto) % Overton % (Auto) % Eos % (Auto) % Baso % (Auto) % Neut # (Auto) (1.4-6.5) K/uL Lymph # (Auto) (1.2-3.4) K/uL Overton # (Auto) (0.11-0.59) K/uL Eos # (Auto) (0-0.5) K/uL Baso # (Auto) (0-0.2) K/uL Immature Gran # (Auto) (0.00-0.02) K/uL PT (9.0-12.0) Seconds INR (0.9-1.1) APTT (21.0-31.0) Seconds PTT Ratio Sodium 135 L (136-145) mmol/L Potassium TNP Chloride 115 H (98-107) mmol/L Carbon Dioxide 14 L (21-32) mmol/L Anion Gap 6 (3-11) BUN 57 H (6-23) mg/dl Creatinine 1.49 H (0.6-1.2) mg/dl Est Cr Clr Drug Dosing 22.6 ml/min Est GFR ( Amer) 36.7 ml/min Est GFR (Non-Af Amer) 31.7 ml/min BUN/Creatinine Ratio 38.3 H (10-20) Glucose 188 H (70-99(Fasting)) mg/dl POC Glucose 46 L* (70-99) mg/dl Lactate (0.4-2.0) mmol/L Calcium 9.1 (8.5-10.1) mg/dl Magnesium 1.8 (1.7-2.4) mg/dl Total Bilirubin 0.9 (0.2-1.0) mg/dl AST TNP ALT 18 (7-52) U/L Alkaline Phosphatase 123 H (34-104) U/L Troponin I < 0.03 (0-0.04) ng/ml Total Protein 6.9 (6.0-8.3) gm/dl Albumin 3.5 (3.4-5.0) gm/dl Globulin 3.4 (2.5-4.0) gm/dl Albumin/Globulin Ratio 1.0 (0.9-2) Procalcitonin 0.06 (0-0.5) ng/ml Urine Color Urine Appearance (Clear) Urine pH (4.5-7.5) Ur Specific [place] (1.000-1.030) Urine Protein (Negative) Urine Glucose (UA) (Negative) Urine Ketones (Negative) Urine Blood (Negative) Urine Nitrite (Negative) Urine Bilirubin (Negative) Urine Urobilinogen (Negative) Ur Leukocyte Esterase (Negative) Urine WBC (Auto) (0-5) /hpf Urine RBC (Auto) (0-4) /hpf U Hyaline Cast (Auto) (0-5) /lpf U Epithel Cells (Auto) (0-5) /lpf Urine Bacteria (Auto) (Negative) Influ A Molecular Assay (Negative) Influ B Molecular Assay (Negative) SARS-CoV-2, RNA, NAAT (NEGATIVE) 01/01/22 01/01/22 01/01/22 Range/Units 13:06 13:06 13:06 WBC 4.95 (4.8-10.8) K/uL RBC 4.10 L (4.2-5.4) M/uL Hgb 11.6 L (12.0-16.0) g/dL Hct 36.3 L (37-47) % MCV 88.5 (80-100) fL MCH 28.3 (25-34) pg MCHC 32.0 (32-36) g/dL RDW Std Deviation 51.4 H (36.4-46.3) fL RDW Coeff of Daniela 16.3 H (11.5-14.5) % Plt Count 113 L (130-400) K/uL MPV 11.1 H (7.4-10.4) fL Immature Gran % (Auto) 0.8 % Neut % (Auto) 60.9 % Lymph % (Auto) 24.4 % Overton % (Auto) 11.9 % Eos % (Auto) 1.4 % Baso % (Auto) 0.6 % Neut # (Auto) 3.01 (1.4-6.5) K/uL Lymph # (Auto) 1.21 (1.2-3.4) K/uL Overton # (Auto) 0.59 (0.11-0.59) K/uL Eos # (Auto) 0.07 (0-0.5) K/uL Baso # (Auto) 0.03 (0-0.2) K/uL Immature Gran # (Auto) 0.04 H (0.00-0.02) K/uL PT 10.7 (9.0-12.0) Seconds INR 1.1 (0.9-1.1) APTT 29.7 (21.0-31.0) Seconds PTT Ratio 1.1 Sodium (136-145) mmol/L Potassium Chloride (98-107) mmol/L Carbon Dioxide (21-32) mmol/L Anion Gap (3-11) BUN (6-23) mg/dl Creatinine (0.6-1.2) mg/dl Est Cr Clr Drug Dosing ml/min Est GFR ( Amer) ml/min Est GFR (Non-Af Amer) ml/min BUN/Creatinine Ratio (10-20) Glucose (70-99(Fasting)) mg/dl POC Glucose (70-99) mg/dl Lactate 0.8 (0.4-2.0) mmol/L Calcium (8.5-10.1) mg/dl Magnesium (1.7-2.4) mg/dl Total Bilirubin (0.2-1.0) mg/dl AST ALT (7-52) U/L Alkaline Phosphatase (34-104) U/L Troponin I (0-0.04) ng/ml Total Protein (6.0-8.3) gm/dl Albumin (3.4-5.0) gm/dl Globulin (2.5-4.0) gm/dl Albumin/Globulin Ratio (0.9-2) Procalcitonin (0-0.5) ng/ml Urine Color Urine Appearance (Clear) Urine pH (4.5-7.5) Ur Specific [place] (1.000-1.030) Urine Protein (Negative) Urine Glucose (UA) (Negative) Urine Ketones (Negative) Urine Blood (Negative) Urine Nitrite (Negative) Urine Bilirubin (Negative) Urine Urobilinogen (Negative) Ur Leukocyte Esterase (Negative) Urine WBC (Auto) (0-5) /hpf Urine RBC (Auto) (0-4) /hpf U Hyaline Cast (Auto) (0-5) /lpf U Epithel Cells (Auto) (0-5) /lpf Urine Bacteria (Auto) (Negative) Influ A Molecular Assay (Negative) Influ B Molecular Assay (Negative) SARS-CoV-2, RNA, NAAT (NEGATIVE) 01/01/22 01/01/22 01/01/22 Range/Units 13:14 13:14 13:19 WBC (4.8-10.8) K/uL RBC (4.2-5.4) M/uL Hgb (12.0-16.0) g/dL Hct (37-47) % MCV (80-100) fL MCH (25-34) pg MCHC (32-36) g/dL RDW Std Deviation (36.4-46.3) fL RDW Coeff of Daniela (11.5-14.5) % Plt Count (130-400) K/uL MPV (7.4-10.4) fL Immature Gran % (Auto) % Neut % (Auto) % Lymph % (Auto) % [place] % (Auto) % Eos % (Auto) % Baso % (Auto) % Neut # (Auto) (1.4-6.5) K/uL Lymph # (Auto) (1.2-3.4) K/uL Overton # (Auto) (0.11-0.59) K/uL Eos # (Auto) (0-0.5) K/uL Baso # (Auto) (0-0.2) K/uL Immature Gran # (Auto) (0.00-0.02) K/uL PT (9.0-12.0) Seconds INR (0.9-1.1) APTT (21.0-31.0) Seconds PTT Ratio Sodium (136-145) mmol/L Potassium Chloride (98-107) mmol/L Carbon Dioxide (21-32) mmol/L Anion Gap (3-11) BUN (6-23) mg/dl Creatinine (0.6-1.2) mg/dl Est Cr Clr Drug Dosing ml/min Est GFR ( Amer) ml/min Est GFR (Non-Af Amer) ml/min BUN/Creatinine Ratio (10-20) Glucose (70-99(Fasting)) mg/dl POC Glucose 150 H (70-99) mg/dl Lactate (0.4-2.0) mmol/L Calcium (8.5-10.1) mg/dl Magnesium (1.7-2.4) mg/dl Total Bilirubin (0.2-1.0) mg/dl AST ALT (7-52) U/L Alkaline Phosphatase (34-104) U/L Troponin I (0-0.04) ng/ml Total Protein (6.0-8.3) gm/dl Albumin (3.4-5.0) gm/dl Globulin (2.5-4.0) gm/dl Albumin/Globulin Ratio (0.9-2) Procalcitonin (0-0.5) ng/ml Urine Color Yellow Urine Appearance Cloudy A (Clear) Urine pH 5.0 (4.5-7.5) Ur Specific [place] 1.008 (1.000-1.030) Urine Protein Negative (Negative) Urine Glucose (UA) Negative (Negative) Urine Ketones Negative (Negative) Urine Blood Trace H (Negative) Urine Nitrite Negative (Negative) Urine Bilirubin Negative (Negative) Urine Urobilinogen Negative (Negative) Ur Leukocyte Esterase 3+ H (Negative) Urine WBC (Auto) >30 H (0-5) /hpf Urine RBC (Auto) 0-4 (0-4) /hpf U Hyaline Cast (Auto) 0 (0-5) /lpf U Epithel Cells (Auto) 0-5 (0-5) /lpf Urine Bacteria (Auto) 2+ H (Negative) Influ A Molecular Assay Negative (Negative) Influ B Molecular Assay Negative (Negative) SARS-CoV-2, RNA, NAAT (NEGATIVE) 01/01/22 01/01/22 01/01/22 Range/Units 14:20 15:47 16:18 WBC (4.8-10.8) K/uL RBC (4.2-5.4) M/uL Hgb (12.0-16.0) g/dL Hct (37-47) % MCV (80-100) fL MCH (25-34) pg MCHC (32-36) g/dL RDW Std Deviation (36.4-46.3) fL RDW Coeff of Daniela (11.5-14.5) % Plt Count (130-400) K/uL MPV (7.4-10.4) fL Immature Gran % (Auto) % Neut % (Auto) % Lymph % (Auto) % Overton % (Auto) % Eos % (Auto) % Baso % (Auto) % Neut # (Auto) (1.4-6.5) K/uL Lymph # (Auto) (1.2-3.4) K/uL Overton # (Auto) (0.11-0.59) K/uL Eos # (Auto) (0-0.5) K/uL Baso # (Auto) (0-0.2) K/uL Immature Gran # (Auto) (0.00-0.02) K/uL PT (9.0-12.0) Seconds INR (0.9-1.1) APTT (21.0-31.0) Seconds PTT Ratio Sodium (136-145) mmol/L Potassium 4.8 Chloride (98-107) mmol/L Carbon Dioxide (21-32) mmol/L Anion Gap (3-11) BUN (6-23) mg/dl Creatinine (0.6-1.2) mg/dl Est Cr Clr Drug Dosing ml/min Est GFR ( Amer) ml/min Est GFR (Non-Af Amer) ml/min BUN/Creatinine Ratio (10-20) Glucose (70-99(Fasting)) mg/dl POC Glucose 104 H 75 (70-99) mg/dl Lactate (0.4-2.0) mmol/L Calcium (8.5-10.1) mg/dl Magnesium (1.7-2.4) mg/dl Total Bilirubin (0.2-1.0) mg/dl AST 26 ALT (7-52) U/L Alkaline Phosphatase (34-104) U/L Troponin I (0-0.04) ng/ml Total Protein (6.0-8.3) gm/dl Albumin (3.4-5.0) gm/dl Globulin (2.5-4.0) gm/dl Albumin/Globulin Ratio (0.9-2) Procalcitonin (0-0.5) ng/ml Urine Color Urine Appearance (Clear) Urine pH (4.5-7.5) Ur Specific [place] (1.000-1.030) Urine Protein (Negative) Urine Glucose (UA) (Negative) Urine Ketones (Negative) Urine Blood (Negative) Urine Nitrite (Negative) Urine Bilirubin (Negative) Urine Urobilinogen (Negative) Ur Leukocyte Esterase (Negative) Urine WBC (Auto) (0-5) /hpf Urine RBC (Auto) (0-4) /hpf U Hyaline Cast (Auto) (0-5) /lpf U Epithel Cells (Auto) (0-5) /lpf Urine Bacteria (Auto) (Negative) Influ A Molecular Assay (Negative) Influ B Molecular Assay (Negative) SARS-CoV-2, RNA, NAAT (NEGATIVE) 01/01/22 Range/Units Unknown WBC (4.8-10.8) K/uL RBC (4.2-5.4) M/uL Hgb (12.0-16.0) g/dL Hct (37-47) % MCV (80-100) fL MCH (25-34) pg MCHC (32-36) g/dL RDW Std Deviation (36.4-46.3) fL RDW Coeff of Daniela (11.5-14.5) % Plt Count (130-400) K/uL MPV (7.4-10.4) fL Immature Gran % (Auto) % Neut % (Auto) % Lymph % (Auto) % [place] % (Auto) % Eos % (Auto) % Baso % (Auto) % Neut # (Auto) (1.4-6.5) K/uL Lymph # (Auto) (1.2-3.4) K/uL Overton # (Auto) (0.11-0.59) K/uL Eos # (Auto) (0-0.5) K/uL Baso # (Auto) (0-0.2) K/uL Immature Gran # (Auto) (0.00-0.02) K/uL PT (9.0-12.0) Seconds INR (0.9-1.1) APTT (21.0-31.0) Seconds PTT Ratio Sodium (136-145) mmol/L Potassium Chloride (98-107) mmol/L Carbon Dioxide (21-32) mmol/L Anion Gap (3-11) BUN (6-23) mg/dl Creatinine (0.6-1.2) mg/dl Est Cr Clr Drug Dosing ml/min Est GFR ( Amer) ml/min Est GFR (Non-Af Amer) ml/min BUN/Creatinine Ratio (10-20) Glucose (70-99(Fasting)) mg/dl POC Glucose (70-99) mg/dl Lactate (0.4-2.0) mmol/L Calcium (8.5-10.1) mg/dl Magnesium (1.7-2.4) mg/dl Total Bilirubin (0.2-1.0) mg/dl AST ALT (7-52) U/L Alkaline Phosphatase (34-104) U/L Troponin I (0-0.04) ng/ml Total Protein (6.0-8.3) gm/dl Albumin (3.4-5.0) gm/dl Globulin (2.5-4.0) gm/dl Albumin/Globulin Ratio (0.9-2) Procalcitonin (0-0.5) ng/ml Urine Color Urine Appearance (Clear) Urine pH (4.5-7.5) Ur Specific [place] (1.000-1.030) Urine Protein (Negative) Urine Glucose (UA) (Negative) Urine Ketones (Negative) Urine Blood (Negative) Urine Nitrite (Negative) Urine Bilirubin (Negative) Urine Urobilinogen (Negative) Ur Leukocyte Esterase (Negative) Urine WBC (Auto) (0-5) /hpf Urine RBC (Auto) (0-4) /hpf U Hyaline Cast (Auto) (0-5) /lpf U Epithel Cells (Auto) (0-5) /lpf Urine Bacteria (Auto) (Negative) Influ A Molecular Assay (Negative) Influ B Molecular Assay (Negative) SARS-CoV-2, RNA, NAAT NEGATIVE (NEGATIVE) Imaging Data Radiologist's Impression: Chest X-Ray 01/01/22 12:49 XR chest 1V portable CLINICAL HISTORY: SEPSIS COMPARISON STUDY: Chest radiograph November 26, 2021. Chest CT November 08, 2021. FINDINGS: No pneumothorax or pleural effusion is noted. There is no evidence for pulmonary edema. Cardiomediastinal silhouette is stable. Vascular stent projects over the left upper hemithorax. There is suspected right basilar airspace opacity. Skin fold project over the right chest. IMPRESSION: Right basilar airspace opacity. This may reflect a focus of pneumonia. Radiographic follow-up to ensure resolution is recommended. ACT 112: Negative or not required by law. Electronically signed by: Phan Camarillo M.D. 01/01/2022 1:[address] 01/01/22 12:[address] DOSE: 1094.67 mGycm HISTORY: Altered mental status. TECHNIQUE: Multiaxial CT images of the head were performed without the use of intravenous contrast. Automated exposure control was utilized for this study. A dose lowering technique was utilized adhering to the principles of ALARA. Comparison: Head CT 11/08/2021. Findings: Motion artifact. Old postoperative changes within the left posterior maxilla, unchanged. The paranasal sinuses and mastoid air cells are clear. The calvarium and skull base are intact. The ventricles and sulci are within normal limits. There is no mass, hematoma, midline shift, or acute infarct. Impression: Motion artifact. No definite acute intracranial abnormality. ACT 112: Negative or not required by law. Electronically signed by: Sunday Enciso M.D. 01/01/2022 3:11 PM [facility] Narrative 1241: The patient was evaluated in room C12. A complete history and physical exam was performed Cardiac monitoring: An order was placed for continuous cardiac monitoring. The monitor shows a rate of 70 with sinus rhythm Patient's blood sugar low on arrival. 1 amp of D50 given to the patient. Sepsis protocols will be initiated given the history of recently being treated for UTI and altered mental status. 1350: Vital signs stable. Patient's Accu-Chek is improved. Patient's mental status is improved and her dysarthria has resolved. She is more alert however she is still confused. Family at bedside states the patient was discharged from [facility] and then taken back there because she was so weak. 1525: Vital signs stable. Labs show a UTI. X-ray shows pneumonia. Patient be treated with broad-spectrum antibiotics as she was recently treated for these and is in a shelter. Cefepime and vancomycin ordered for the patient. CT of the head is within normal limits. [facility] Impression & Plan Hypoglycemia, Pneumonia, Acute UTI Discharge Plan Visit Data Chief Complaint: Altered Mental Status Discharge Problem: Hypoglycemia, Pneumonia, Acute UTI Patient Disposition: Admitted As Inpatient Forms Stand Alone Forms: My [facility] Prescriptions Prescriptions: No Action atorvastatin 20 mg tablet 20 mg PO QAM RF: 0 clopidogrel 75 mg tablet 75 mg PO QAM RF: 0 aspirin [Aspirin Low Dose] 81 mg Tablet,Delayed Release (Dr/Ec) 81 mg PO QAM RF: 0 levothyroxine 88 mcg tablet 88 mcg PO QAM RF: 0 albuterol sulfate [Ventolin HFA] 90 mcg/actuation HFA aerosol inhaler 2 puff inhalation Q4H PRN (Reason: Shortness Of Breath) RF: 0 famotidine 40 mg tablet 40 mg PO DAILYBB RF: 0 gabapentin 300 mg capsule 300 mg PO HS RF: 0 ferrous sulfate [FeroSul] 325 mg (65 mg iron) tablet 325 mg PO QAM RF: 0 furosemide 40 mg tablet 20 mg PO DAILY RF: 0 insulin aspart U-100 100 unit/mL (3 mL) insulin pen 16 unit SUBCUT AC RF: 0 Januvia 50 mg tablet 50 mg PO QAM RF: 0 spironolactone 25 mg tablet 25 mg PO TID RF: 0 Saccharomyces boulardii 250 mg Capsule 250 mg PO AC RF: 0 acetaminophen [Tylenol] 325 mg Tablet 650 mg PO Q4 MDD 3g PRN (Reason: temp>100) RF: 0 carvedilol 3.125 mg tablet 3.125 mg PO DAILY RF: 0 pantoprazole [Protonix] 40 mg Tablet,Delayed Release (Dr/Ec) 40 mg PO DAILY RF: 0 Tresiba FlexTouch U-200 200 unit/mL (3 mL) insulin pen 18 unit SUBCUT DAILY RF: 0 guaifenesin [Mucus Relief ER] 600 mg tablet extended release 12hr 600 mg PO BID RF: 0 ipratropium-albuterol 0.5 mg-3 mg(2.5 mg base)/3 mL solution for nebulization 3 ml INHALATION Q6 RF: 0 Anoro Ellipta 62.5-25 mcg/actuation Blister With Device 1 inh INHALATION QAM RF: 0 Referrals Referrals: Guido Valera [Primary Care Provider] -
[2022-01-01] MEDS ORDERED: ONDANSETRON INJ 2 MG/ML 2 ML VIAL IV PRN (20:19)
[2022-01-01] MEDS ORDERED: ACETAMINOPHEN 325 MG TAB PO PRN ×2 (20:19)
[2022-01-01] MEDS ORDERED: ALBUTEROL HFA 8 GM INHALER INH PRN (20:19)
[2022-01-01] MEDS ORDERED: GABAPENTIN 300 MG CAP PO SCH (21:00)
[2022-01-01] MEDS: SPIRONOLACTONE 25 MG TAB PO SCH (21:18)
[2022-01-01] MEDS: guaiFENesin 600 MG TABCR PO SCH (21:19)
[2022-01-01] MEDS: cefTRIAXone SODIUM 1,000 MG in DEXTROSE 5% 50 ML IV SCH (23:13)
[2022-01-02] MEDS: ALBUT/IPRATROP 3MG/0.5MG NEB 3 ML VIAL INH SCH ×5 (00:54→12:02)
[2022-01-02] MEDS: FAMOTIDINE 40 MG TABLET PO SCH (05:51)
[2022-01-02] MEDS: LEVOTHYROXINE SODIUM 88 MCG TABLET PO SCH (05:51)
[2022-01-02] MEDS ORDERED: FERROUS SULFATE 325 MG TAB PO SCH (09:00)
[2022-01-02] MEDS ORDERED: ATORVASTATIN 20 MG TAB PO SCH (09:00)
[2022-01-02] MEDS ORDERED: FUROSEMIDE 20 MG TAB PO SCH (09:00)
[2022-01-02] MEDS: PANTOprazole 40 MG TAB PO SCH (09:27)
[2022-01-02] MEDS: CLOPIDOGREL BISULFATE 75 MG TAB PO SCH (09:27)
[2022-01-02] MEDS: ASPIRIN 81 MG ECTAB PO SCH (09:27)
[2022-01-02] MEDS: guaiFENesin 600 MG TABCR PO SCH (09:28)
[2022-01-02] MEDS: UMECLIDINIUM/VILANTEROL 62.5/25MCG 7 PUFFS/INHALER INH SCH (09:28)
[2022-01-02] MEDS: SPIRONOLACTONE 25 MG TAB PO SCH ×2 (09:28→16:33)
[2022-01-02] MEDS: SACCHAROMYCES BOULARDII 250 MG CAP PO SCH ×3 (09:29→18:46)
--- NOTE | 2022-01-02 10:32 | Hospitalist Progress Note ---
Date of Service January 02, 2022 Assessment & Plan (1) Acute metabolic encephalopathy: Plan: Possibly secondary to hepatic encephalopathy versus underlying urinary tract infection versus other. She notably had some hypoglycemia coming in on admission. She was initially made NPO, however, when her children came to bedside this afternoon she was more alert so will add a diet back again. However, she will remain strict aspiration precautions and defer to nurse cl inical judgement to reimplement NPO status at anytime of concern. There is a concern that she has not been eating much with progressive decline this week. See plan below (2) Metabolic acidosis: Plan: Acute nonanion gap metabolic acidosis. Cause is uncertain, however, etiologies include but not limited to recent bicarbonate loss from loose stools versus starvation ketosis versus recently changed diuretics. Start bicarb drip in patient who is volume down on exam and repeat BMP in am. She is compensating appropriately at this time with expected PCO2 27 and measures PCO2 28. Nephro consulted. (3) EARL (acute kidney injury): Plan: Lasix 20mg QOD on discharge 11/27, then spironolactone 25mg PO TID started 12/20. Likely related to diuretics vs infection. Will obtain urine studies and monitor for improvement with IVF given overnight. (4) Cirrhosis: Plan: Appears compensated, however, possibly with some asterixis vs weakness on exam. Ammonia slightly elevated into the 40s. Despite acidosis and patient being volume down, want to give only one dose of lactulose to remove ammonia and see if this helps. Would not consistently schedule lactulose and not wanting to induce diarrheal illness. (5) Acute UTI: Plan: noted h/o c-diff, cont empiric Rocephin pending culture results. (6) DM II (diabetes mellitus, type II), controlled: Plan: hypoglycemic on admission with a glucose of 46. This is improved and now within the normal range. Cont BSG q6 or ACHS and insulin correction only if needed. (7) Hypertension: Plan: currently controlled, hold diuretic therapy (8) PAF (paroxysmal atrial fibrillation): Plan: - Continue Plavix and baby aspirin - During last hospital stay the patient had 1 bout of A. fib with RVR in the setting of acute systemic noncardiac illness, spontaneous conversion to sinus rhythm. She was followed by cardiology during that. Her antiplatelets were held due to GI bleed during that time. - Holding coreg with prior hx of bradycardia, put back on if tachycardic or develops afib (9) PAD (peripheral artery disease): Plan: -Chronic, stable (10) Hypothyroidism: Plan: chronic, stable, cont levothyroxine (11) DVT prophylaxis: Plan: heparin DNR Dispo-to PCU. I spoke with the son and daughter at bedside and updated them with the plan. She is a confirmed DNR. they are in agreement with everything so far and verbalized understanding of the CT results and lab results as explained. They verbalized understanding that she will be moving to the PCU today. [facility]tic[facility]ated Discharge Date Admission Date: January 01, 2022 Subjective 86 yo F with known h/o cirrhosis presented yesterday with progressive weakness and confusion. She was so weak that family took her to [facility] where she had recently been discharged from. She remains confused and very somnolent today after being put on ceftriaxone for a UTI yesterday. Daughter states she is slightly less confused today. Notably she was discharged from [facility] on 11/27 with Lasix 20mg every other day, holding losartan at discharge, and a decrease in her gabapentin dosing from 600mg TID to 300mg HS. She was then started on spironolactone 25 mg p.o. 3 times daily at [facility] around 12/20. Baseline creatinine is 1.0 and current creatinine is elevated at 1.5. Record review reveals creatinine has not gone back to baseline since discharge. Daughter reports progressive worsening of vaginal itching. States that she was being given topical hydrocortisone which is on the previous discharge summary, and placing this vaginally. Denies any strong odor or discharge at home. Daughter attempted to give patient water at bedside while patient was obtunded. She was educated to wait for the nurse before attempting this in order to o bserve strict aspiration precautions. Recent pneumonia on prior hospital stay and she does have a right basilar opacity on current chest x-ray. However, patient's daughter denies vehemently any issues with coughing fevers, chills or oxygen needs, stating her breathing has been better than ever. Procalcitonin is also negative therefore, pneumonia is less likely although patient remains a high aspiration risk. Daughter also reports patient did completely return to normal clinical baseline since the last hospital discharge and then subsequently declined this week. No bowel movement since admission have been seen. Daughter reports patient has had laxatives this week helping her to have a loose stool but not liquid stool. Daughter denies any abdominal swelling or fluid gain that she is aware of and no abdominal pain that she is aware of. Review of Systems Review of Systems: Unable to obtain review of systems as patient is lethargic Physical Exam Physical Exam: CONSTITUTIONAL: WNWD, vitals as above, generally ill- appearing, mild distress EYES: normal conjunctivae, no scleral icterus ENT: external ear and nose normal, mucous membranes are dry NECK: trachea midline RESPIRATORY: clear to auscultation bilaterally, no crackles, rales or wheezes, normal respiratory effort CARDIOVASCULAR: regular rate and rhythm, S1 and 2 heard without murmurs, gallops or rubs, no JVD, no peripheral edema CHEST: inspection of chest was normal GASTROINTESTINAL: soft, nontender, no distension or fluid wave, no guarding MUSCULOSKELETAL: strength 5/5 throughout, head is normocephalic and atraumatic, neck supple, normal palpation of chest wall without tenderness SKIN: warm and dry NEUROLOGIC: No facial palsy, CN 2-12 grossly intact, she is able to awaken and say she is at the hospital but falls asleep again, +asterixis PSYCHIATRIC: somnolent Results & Data Results & Data ([facility]) Vital Signs (Past 12 Hours) Vital Signs Temp Pulse Resp BP Pulse Ox 01/02/22 08:00 36.1 C L 70 18 137/66 97 01/02/22 07:15 72 16 94 01/02/22 04:22 37 C 62 18 158/64 H 97 01/02/22 00:59 48 L 16 97 01/01/22 23:22 36.9 C 64 20 153/60 H 95 Laboratory Results Short CBC 01/01/22 Range/Units 13:06 WBC 4.95 (4.8-10.8) K/uL Hgb 11.6 L (12.0-16.0) g/dL Hct 36.3 L (37-47) % Plt Count 113 L (130-400) K/uL BMP 01/01/22 01/01/22 13:06 15:47 Sodium 135 L Potassium TNP 4.8 Chloride 115 H Carbon Dioxide 14 L BUN 57 H Creatinine 1.49 H Glucose 188 H Calcium 9.1 Cardiac Enzymes 01/01/22 Range/Units 13:06 Troponin I < 0.03 (0-0.04) ng/ml Liver Function 01/01/22 01/01/22 Range/Units 13:06 15:47 Total Bilirubin 0.9 (0.2-1.0) mg/dl AST TNP 26 ALT 18 (7-52) U/L Alkaline Phosphatase 123 H (34-104) U/L Albumin 3.5 (3.4-5.0) gm/dl Urine 01/01/22 Range/Units 13:14 Urine Color Yellow Urine Appearance Cloudy A (Clear) Urine pH 5.0 (4.5-7.5) Ur Specific [place] 1.008 (1.000-1.030) Urine Protein Negative (Negative) Urine Glucose (UA) Negative (Negative) Medications Administered Current Inpatient Medications Acetaminophen (Acetaminophen 325 Mg Tab) 650 mg PO Q4H PRN PRN Reason: Moderate Pain Stop: 01/31/22 20:18 Albuterol (Albuterol Hfa 8 Gm Inhaler) 2 puffs INH Q4H PRN PRN Reason: Shortness Of Breath Stop: 01/31/22 20:18 Albuterol (Albut/Ipratrop 3mg/0.5mg Neb 3 Ml Vial) 3 ml INH Q6R [facility]; Protocol Stop: 01/31/22 20:59 Last Admin: 01/02/22 07:15 Dose: 3 ml Documented by: Aspirin (Aspirin 81 Mg Ectab) 81 mg PO [facility] Stop: 02/01/22 08:59 Last Admin: 01/02/22 09:27 Dose: 81 mg Documented by: Atorvastatin Calcium (Atorvastatin 20 Mg Tab) [facility] Stop: 02/01/22 08:59 Last Admin: 01/02/22 09:27 Dose: 20 mg Documented by: Clopidogrel Bisulfate (Clopidogrel Bisulfate 75 Mg Tab) 75 [facility] Stop: 02/01/22 08:59 Last Admin: 01/02/22 09:27 Dose: 75 mg Documented by: Famotidine (Famotidine 40 Mg Tablet) 40 mg PO [facility] Stop: 02/01/22 06:29 Last Admin: 01/02/22 05:51 Dose: 40 mg Documented by: Ferrous Sulfate (Ferrous Sulfate 325 Mg Tab) 325 mg PO QAM [facility] Stop: 02/01/22 08:59 Last Admin: 01/02/22 09:26 Dose: 325 mg Documented by: Furosemide (Furosemide 20 Mg Tab) 20 mg PO DAILY [facility] Stop: 02/01/22 08:59 Last Admin: 01/02/22 09:27 Dose: 20 mg Documented by: Gabapentin (Gabapentin 300 Mg Cap) 300 mg PO HS [facility] Stop: 01/31/22 20:59 Last Admin: 01/01/22 21:19 Dose: 300 mg Documented by: Guaifenesin (Guaifenesin 600 Mg Tabcr) 600 mg PO BID [facility] Stop: 01/31/22 20:59 Last Admin: 01/02/22 09:28 Dose: 600 mg Documented by: Ceftriaxone Sodium 1,000 mg/ (Dextrose) 50 mls @ 100 mls/hr IV Q24H [facility]; Protocol Stop: 01/11/22 00:00 Last Infusion: 01/01/22 23:45 Dose: Infused Documented by: Levothyroxine Sodium (Levothyroxine Sodium 88 Mcg Tablet) 88 mcg PO DAILYBB [facility] Stop: 02/01/22 06:29 Last Admin: 01/02/22 05:51 Dose: 88 mcg Documented by: Ondansetron HCl (Ondansetron Inj 2 Mg/Ml 2 Ml Vial) 4 mg IV Q4H PRN PRN Reason: Nausea And Vomiting Stop: 01/31/22 20:18 Pantoprazole Sodium (Pantoprazole 40 Mg Tab) 40 mg PO DAILY [facility] Stop: 02/01/22 08:59 Last Admin: 01/02/22 09:27 Dose: 40 mg Documented by: Saccharomyces Boulardii (Saccharomyces Boulardii 250 Mg Cap) 250 mg PO AC [facility] Stop: 02/01/22 07:29 Last Admin: 01/02/22 09:29 Dose: 250 mg Documented by: Spironolactone (Spironolactone 25 Mg Tab) 25 mg PO TID [facility] Stop: 01/31/22 20:59 Last Admin: 01/02/22 09:28 Dose: 25 mg Documented by: Umeclidinium/Vilanterol (Umeclidinium/Vilanterol 62.5/25mcg 7 Puffs/Inhaler) 1 puffs INH QAM [facility] Stop: 02/01/22 08:59 Last Admin: 02/27/22 09:28 Dose: 1 puffs Documented by:
--- NOTE | 2022-01-02 12:40 | Electrocardiogram Report ---
Test Reason : Blood Pressure : / mmHG Vent. Rate : 063 BPM Atrial Rate : 063 BPM P-R Int : 234 ms QRS Dur : 100 ms QT Int : 408 ms P-R-T Axes : 045 -35 090 degrees QTc Int : 417 ms Sinus rhythm with 1st degree A-V block Left atrial enlargement Left axis deviation Septal infarct (cited on or before 02-JUL-2021) Abnormal ECG When compared with ECG of 18-NOV-2021 12:08, Questionable change in initial forces of Anteroseptal leads Confirmed by Evans Washington ([id number]) on 01/02/2022 12:40:14 PM Referred By: REFERRED SELF Confirmed By:Evans Washington
[2022-01-02] MEDS ORDERED: ALBUT/IPRATROP 3MG/0.5MG NEB 3 ML VIAL INH PRN (14:45)
[2022-01-02 15:12] LABS: Hematocrit (blood only) 38.2 % (37-47); Hemoglobin 12.6 g/dL (12.0-16.0); Mean Corpuscular Hemoglobin 28.8 pg (25-34); Mean Corpuscular Volume 87.2 fL (80-100); Mean Platelet Volume 10.7 fL (7.4-10.4); Platelet Count 118 K/uL (130-400); RDW Coefficient of Variation 16.3 % (11.5-14.5); Red Blood Count 4.38 M/uL (4.2-5.4); White Blood Count 6.18 K/uL (4.8-10.8)
[2022-01-02 15:15] LABS: Allen Test POS (Pos); Base Excess ABG -9.9 mEq/L (-9-1.8); HCO3 ABG 15 mmol/L (19-24); PCO2 ABG 28 mmHg (35-46); PO2 ABG 74 mmHg (80-95); pH ABG 7.33 (7.35-7.45)
[2022-01-02 15:34] LABS: Albumin Globulin Ratio 0.9 (0.9-2); Albumin Level 3.7 gm/dl (3.4-5.0); Calcium 9.8 mg/dl (8.5-10.1); Creatinine Clr Calc Pharmacy 23.8 ml/min; Est GFR (African American) 39.3 ml/min; Est GFR (Non-African American) 33.9 ml/min; Globulin 3.9 gm/dl (2.5-4.0); Magnesium 1.7 mg/dl (1.7-2.4); Potassium 4.9 mmol/L (3.5-5.1); Total Protein 7.6 gm/dl (6.0-8.3)
[2022-01-02] MEDS ORDERED: LACTULOSE SYRUP 20 GM/30 ML UDC PO ONE (15:56)
[2022-01-02] MEDS: SODIUM BICARBONATE 8.4% 75 MEQ in DEXTROSE 5% 1,000 ML IV SCH (16:31)
--- NOTE | 2022-01-02 16:37 | CT Scan Report ---
ABDOMEN AND PELVIS CT WITHOUT CONTRAST CT DOSE: 526.53 mGy.cm HISTORY: cirrhotic, +UTI, acidosis, altered mental status TECHNIQUE: Multiaxial CT images of the abdomen and pelvis were performed without contrast. A dose lo wering technique was utilized adhering to the principles of ALARA. COMPARISON STUDY: Abdomen and pelvis CT 11/09/2021. FINDINGS: There is again noted a subacute inferior endplate compression fracture demonstrating mild l oss of height at T10. The left lung base is clear. Right lower lobe airspace opacity has significantl y improved in the interval. This favors a resolving pneumonia. No acute fractures within the visualiz ed osseous structures. Small fat-containing right inguinal hernia, unchanged. The bladder is mildly d istended. No bladder wall thickening. The small focus of gas within the bladder lumen. This is likely due to prior catheterization. The uterus and bilateral adnexa are unremarkable. No pelvic free fluid . Cirrhotic liver again noted. Cholelithiasis. No gallbladder wall thickening. The unenhanced pancrea s, spleen, and adrenal glands are unremarkable. No renal or ureteral stones. No hydronephrosis. A 3.5 cm left renal cyst is again noted. No retroperitoneal lymphadenopathy. The superior mesenteric arter y stent is noted. Extensive calcified plaque within the abdominal aorta. The 3.8 x 3.6 cm infrarenal abdominal aortic aneurysm. This remains unchanged. No retroperitoneal hematoma. A few upper abdominal varicosities are again noted. Suboptimal evaluation for bowel pathology due to the lack of intraveno us and oral contrast. However, there is no definite bowel wall thickening or obstruction. Colonic div erticulosis. No evidence for acute diverticulitis. The appendix is not identified. IMPRESSION: 1. Cirrhotic liver, unchanged. 2. Cholelithiasis. No gallbladder wall thickening. 3. Mildly distended bladder containing a small amount of gas. The gas is likely secondary to the prio r catheterization. 4. No hydronephrosis. 5. Colonic diverticulosis. No evidence for acute diverticulitis. 6. Significant improvement of the right lower lobe airspace opacities consistent with a resolving pne umonia. 7. No change in the 3.8 x 3.6 cm infrarenal abdominal aortic aneurysm. 8. No change in the subacute mild inferior endplate compression fracture at T10. ACT 112: Negative or not required by law. Electronically signed by: Sunday Enciso M.D. 01/02/2022 4:35 PM
[2022-01-02] MEDS ORDERED: GLUCOSE 40% GEL 15 GM TUBE PO PRN (16:41)
[2022-01-02] MEDS ORDERED: DEXTROSE 50% 50 ML SYRINGE IV PRN (16:41)
[2022-01-02] MEDS ORDERED: GLUCOSE 10 TABS/TUBE PO PRN (16:41)
[2022-01-02] MEDS ORDERED: GLUCAGON FOR INJ 1 MG VIAL SQ PRN (16:41)
[2022-01-02] MEDS ORDERED: CARBOHYDRATES FOR HYPOGLYCEMIA PO PRN (16:41)
[2022-01-02] MEDS ORDERED: FLUCONAZOLE 50 MG TAB PO ONE (17:15)
[2022-01-02] MEDS ORDERED: INSULIN ASPART PER UNIT SC SCH (21:00)
[2022-01-02] MEDS: HEPARIN SOD 5,000 UNIT/0.5 ML VIAL SQ SCH (21:11)
[2022-01-02] MEDS ORDERED: Nursing to Pharmacy Communication SCH (21:30)
[2022-01-02] MEDS: cefTRIAXone SODIUM 1,000 MG in DEXTROSE 5% 50 ML IV SCH (23:18)
[2022-01-02] MEDS: INSULIN ASPART PER UNIT SC SCH (23:22)
[2022-01-03] MEDS: SODIUM BICARBONATE 8.4% 75 MEQ in DEXTROSE 5% 1,000 ML IV SCH (01:24)
[2022-01-03] MEDS: INSULIN ASPART PER UNIT SC SCH ×4 (05:34→20:16)
[2022-01-03] MEDS: FAMOTIDINE 40 MG TABLET PO SCH (05:38)
[2022-01-03] MEDS: LEVOTHYROXINE SODIUM 88 MCG TABLET PO SCH (05:38)
[2022-01-03 07:59] LABS: Estimated Average Glucose 148 mg/dl; Hemoglobin A1C 6.8 % (4.5-5.6)
--- NOTE | 2022-01-03 08:45 | Nephrology Consultation ---
Date of Consultation January 03, 2022 Assessment & Plan (1) Disorder of acid-base balance: she presented with and certainly a few days prior to admission had NAGMA. pt can give little hx though she has had minimal diarrhea here. after course of sodium bicarbonate and with conservative measures, her metabolic acidosis has resolved. patient had a mixed non anion gap metabolic acidosis whether from diarrhea related to prior abtx and C diff versus ketoacidosis (though no ketones in admission urine); also w/ superimposed respiratory aklalosis. acid base issues resolved now after conservative care; woudl continue to observe -daily bmp -no further sodium bicarb needed History of Present Illness Reason for Consultation: metabolic acidosis Requesting Physician: Dr Singh Attending Physician: Surekha Singh, DO History of Present Illness 86-year-old female whom I am asked to evaluate for metabolic acidosis was admitted here on January 01 for acute metabolic encephalopathy in the setting of UTI. Past medical history includes peripherall arterial disease status post left subclavian, superior mesenteric artery stenting, left iliac and femoropopliteal bypass, infrarenal abdominal aortic aneurysm 4 cm, CKD 3, liver cirrhosis, hypertension, insulin dependent diabetes, COPD, hyperlipidemia, and recurrent C. difficile. Note that prior to admission [facility] November 2021, patient was not on chronic oxygen at home. Patient with extended stay here November 11 to the for sepsis from E faecalis UTI complicated by GI bleed, C. difficile colitis, pneumonia, new onset A. fib with RVR. She was discharged from rehab back to her apartment where she lives independently approximately December 25. We had been monitoring her labs while at rehab weekly with creatinine running 1.5-1.8, with last value 1.8 on December 20. Chloride and bicarb were in normal limits for these labs. when I saw the patient in CKD clinic Dec, she had started antibiotics for pneumonia by facility team. There was at that point no evidence of recurrent C. difficile. Non-[facility] labs obtained December 29 for GI f/u were remarkable for creatinine 2.4 with potassium 5.7; also with chloride 113 and bicarb 14. in evaluating these labs, significant discrepancies/confusion noted regarding patient's orders for medication. On December 09 office visit, I had recommended she continue Lasix 40 mg daily, start spironolactone 12.5 mg daily and stop potassium supplements. At discharge from [facility] on 12/25, she was sent out on Lasix 20 mg daily and spironolactone 25 mg 3 times daily. Rationale/origin for these med changes nto clear; pt also stated she'd been told to hold "meds (?diuretics)" prior to or in response to 12/29 labs but not clear from OP records what provider that order came. Patient presented here with creatinine 1.5 January 01, 1.4 yesterday. Pot assium was 4.8 on presentation and 4.9 yesterday. Chloride has been in the mid teens and carbon dioxide ranging 12-14 since presentation. She has had 1.1 L of bicarb gtt and is receiving IV vanco. No BM charted. nursing tells me that pt has been confused though better today in terms of MS; no breakfast this am for pt d/t decreased MS. had one loose bm yesterday and this after lactulose. Allergies Allergy/AdvReac Type Severity Reaction Status Date / Time vitamin E (d-alpha Allergy Intermediate ITCHY Unverified 01/01/22 16:17 tocopherol) RASH, HIVES--PER [facility] 09/21/21 ENCOUNTER amoxicillin AdvReac Intermediate STOMACH Unverified 01/01/22 16:17 UPSET--PER [facility] 09/21/21 ENCOUNTER clavulanic acid AdvReac Intermediate STOMACH Unverified 01/01/22 16:17 UPSET--PER [facility] 09/21/21 ENCOUNTER Home Medications Medication Instructions Recorded Confirmed Type albuterol sulfate 90 mcg/actuation 2 puff INHALATION Q4H PRN 04/10/19 01/01/22 History aerosol inhaler (Ventolin HFA) aspirin 81 mg tablet,delayed 81 mg PO QAM 04/10/19 01/01/22 History release (Aspirin Low Dose) atorvastatin 20 mg tablet 20 mg PO QAM 04/10/19 01/01/22 History clopidogrel 75 mg tablet 75 mg PO QAM 04/10/19 01/01/22 History levothyroxine 88 mcg tablet 88 mcg PO QAM 04/10/19 01/01/22 History famotidine 40 mg tablet 40 mg PO DAILYBB 03/29/21 01/01/22 History ipratropium 0.5 mg-albuterol 3 mg 3 ml INHALATION Q6 11/08/21 01/01/22 History (2.5 mg base)/3 mL nebulization soln umeclidinium 62.5 mcg-vilanterol 1 inh INHALATION QAM 11/08/21 01/01/22 History 25 mcg/actuation powdr for inhalation (Anoro Ellipta) Saccharomyces boulardii 250 mg 250 mg PO AC 01/01/22 01/01/22 History capsule acetaminophen 325 mg tablet 650 mg PO Q4 PRN MDD 3g 01/01/22 01/01/22 History (Tylenol) ferrous sulfate 325 mg (65 mg 325 mg PO QAM 01/01/22 01/01/22 History iron) tablet (FeroSul) furosemide 40 mg tablet 20 mg PO DAILY 01/01/22 01/01/22 History gabapentin 300 mg capsule 300 mg PO HS 01/01/22 01/01/22 History guaifenesin 600 mg tablet, 600 mg PO BID 01/01/22 01/01/22 History extended release 12 hr (Mucus Relief ER) insulin aspart U-100 100 unit/mL 16 unit SUBCUT AC 01/01/22 01/01/22 History (3 mL) subcutaneous pen insulin degludec 200 unit/mL (3 18 unit SUBCUT DAILY 01/01/22 01/01/22 History mL) subcutaneous pen (Tresiba FlexTouch U-200 insulin) pantoprazole 40 mg tablet,delayed 40 mg PO DAILY 01/01/22 01/01/22 History release (Protonix) sitagliptin 50 mg tablet (Januvia) 50 mg PO QAM 01/01/22 01/01/22 History spironolactone 25 mg tablet 25 mg PO TID 01/01/22 01/01/22 History Patient History Medical History Abdominal pain Acute metabolic encephalopathy Anemia Aneurysm of infrarenal abdominal aorta Cirrhosis CKD (chronic kidney disease) stage 3, GFR 30-59 ml/min COPD (chronic obstructive pulmonary disease) DM II (diabetes mellitus, type II), controlled Emphysema Epigastric abdominal pain GI bleed HLD (hyperlipidemia) Hypertension Hypothyroidism PAD (peripheral artery disease) PAF (paroxysmal atrial fibrillation) Pneumonia Sepsis Shortness of breath Surgical History History of appendectomy History of intravascular stent placement Reported Left subclavian, superior mesenteric artery, L iliac, L fempop bypass - Dr Andrade [facility] Family History Other Diabetes Hypertension Social History Smoking Status: Unknown if ever smoked Hx Alcohol Use: No Hx Substance Use: No Preferred Language: Uzbek Communication Ability: Impaired Airborne Electronics Analyst Required: No Beliefs That Will Affect Care: None marital status: / Current Living Situation: Rehab Current Living Situation Comment: unable to determine How many Children do You have: 3 Feels Safe at Home: Yes Assistive Devices: None Review of Systems Review of Systems: Other (ROS markedly limited by pt confusion; she cannot give consistent/coherent ROS; denies abdominal or musculoskeletal pain, denies voiding sx; denies sob) Physical Exam Constitutional: well developed, well nourished and + frail appearing; no acute distress Eyes: EOM intact bilaterally ENMT: Ears: no external ear abnormality Nose: no external nose abnormality Mouth: + dry oral mucous membranes Neck: no nuchal rigidity Respiratory: normal respiratory effort Auscultation: + diminished lung sounds Cardiovascular: Rate/Rhythm: regular rate and regular rhythm Heart Sounds: no murmur Extremities: no edema Gastrointestinal (Abdomen): Inspection/Auscultation: normal bowel sounds Percussion/Palpation: abdomen soft; abdomen nontender Musculoskeletal: Extremities: + abnormal strength (generalized weakness) Skin: no rashes, warm and dry Neurologic: shay, fluent speech, no tremor Results & Data ([facility]) Vital Signs (Past 12 Hours) Vital Signs Temp Pulse Pulse Pulse Resp BP BP 01/03/22 07:40 36.5 C 73 18 112/61 01/03/22 07:21 69 01/03/22 03:59 36.5 C 72 16 112/71 01/03/22 00:03 36.3 C L 77 19 137/53 L 01/02/22 23:59 75 Pulse Ox 01/03/22 07:40 96 01/03/22 07:21 01/03/22 03:59 93 01/03/22 00:03 95 01/02/22 23:59 Laboratory Results 01/02/22 15:02 01/02/22 15:02 Urinalyses in 2020 and 2021 reviewed Urine culture from admission reviewed ABG reviewed from admission Diagnostic Findings CT abdomen pelvis admission noncontrast 1. Cirrhotic liver, unchanged. 2. Cholelithiasis. No gallbladder wall thickening. 3. Mildly distended bladder containing a small amount of gas. The gas is likely secondary to the prior catheterization. 4. No hydronephrosis. 5. Colonic diverticulosis. No evidence for acute diverticulitis. 6. Significant improvement of the right lower lobe airspace opacities consistent with a resolving pneumonia. 7. No change in the 3.8 x 3.6 cm infrarenal abdominal aortic aneurysm. 8. No change in the subacute mild inferior endplate compression fracture at T10.
[2022-01-03 09:24] LABS: Hematocrit (blood only) 35.1 % (37-47); Hemoglobin 11.8 g/dL (12.0-16.0); Mean Corpuscular Hemoglobin 28.9 pg (25-34); Mean Corpuscular Hgb Conc 33.6 g/dL (32-36); RDW Coefficient of Variation 16.2 % (11.5-14.5); RDW Standard Deviation 50.7 fL (36.4-46.3); Red Blood Count 4.08 M/uL (4.2-5.4)
[2022-01-03 09:25] LABS: Base Excess VBG -2.4 mEq/L; Oxygen Saturation VBG 71.4 %; pH VBG 7.37 (7.36-7.41)
[2022-01-03 09:31] LABS: Platelet Count 96 K/uL (130-400)
[2022-01-03 09:35] LABS: INR 1.2 (0.9-1.1); Prothrombin Time 11.9 Seconds (9.0-12.0)
[2022-01-03 09:48] LABS: Albumin Level 3.3 gm/dl (3.4-5.0); BUN Creatinine Ratio 33.6 (10-20); Bilirubin,Total 0.7 mg/dl (0.2-1.0); Est GFR (African American) 37.6 ml/min; Est GFR (Non-African American) 32.5 ml/min; Globulin 3.4 gm/dl (2.5-4.0); Total Protein 6.7 gm/dl (6.0-8.3)
[2022-01-03] MEDS: UMECLIDINIUM/VILANTEROL 62.5/25MCG 7 PUFFS/INHALER INH SCH (10:10)
[2022-01-03] MEDS: CLOPIDOGREL BISULFATE 75 MG TAB PO SCH (10:11)
[2022-01-03] MEDS: ASPIRIN 81 MG ECTAB PO SCH (10:11)
[2022-01-03] MEDS: HEPARIN SOD 5,000 UNIT/0.5 ML VIAL SQ SCH ×2 (10:11→20:14)
[2022-01-03] MEDS: PANTOprazole 40 MG TAB PO SCH (10:11)
--- NOTE | 2022-01-03 14:29 | Hospitalist Progress Note ---
Date of Service January 03, 2022 Assessment & Plan (1) Acute metabolic encephalopathy: Plan: Possibly secondary to hepatic encephalopathy versus underlying urinary tract infection versus other. She also had difficulty eating food this week because of weakness and confusion. (2) Metabolic acidosis: Plan: Acute non-anion gap metabolic acidosis-resolved wtih bicarb drip overnight. Cause is uncertain, however, etiologies include but not limited to recent bicarbonate loss from loose stools versus starvation ketosis versus recently changed diuretics. nephro consulted. (3) EARL (acute kidney injury): Plan: Lasix 20mg QOD on discharge 11/27, then spironolactone 25mg PO TID started 12/20. Likely related to diuretics vs infection. Will obtain urine studies and monitor for improvement with IVF given overnight. (4) Cirrhosis: Plan: Appears compensated, Ammonia slightly elevated into the 40s adn she had one BM yesterday. Would not consistently schedule lactulose and not wanting to induce diarrheal illness. Trend ammonia in am. (5) Acute UTI: Plan: noted h/o c-diff, E coli present in urine. She has adverse effects to PCNs, renal function not ideal for Bactrim, would avoid FQ based on age, switch to macrobid for remainder of short course. (6) DM II (diabetes mellitus, type II), controlled: Plan: hypoglycemic on admission with a glucose of 46. This is improved and now within the normal range. Cont BSG q6 or ACHS and insulin correction only if needed. (7) Hypertension: Plan: currently controlled, hold diuretic therapy (8) PAF (paroxysmal atrial fibrillation): Plan: - Continue Plavix and baby aspirin - During last hospital stay the patient had 1 bout of A. fib with RVR in the setting of acute systemic noncardiac illness, spontaneous conversion to sinus rhythm. - Holding coreg with prior hx of bradycardia, put back on if tachycardic or develops afib (9) PAD (peripheral artery disease): Plan: -Chronic, stable (10) Hypothyroidism: Plan: chronic, stable, cont levothyroxine (11) DVT prophylaxis: Plan: heparin DNR Dispo-cont PCU monitoring. She is off bicarb drip and appears clinically improved but still wtih somnolence and disorientation that is intermittent. Much improved from yesterday. Cont to monitor. Cont to hold gabapentin and scheduled Tylenol for now. Surekha Singh DO [facility] Hospitalist Admission and Anticipated Discharge Date Admission Date: January 01, 2022 Subjective 86 yo F with known h/o cirrhosis presented with progressive weakness and confusion. She was so weak that family took her to [facility] where she had recently been discharged from. She was sent to the ER from [facility]. looks improved but still disoriented today and thinks it is 1970s. oriented to person and place she knows that she was falling at home and was not eating much prior to arrival to most questions she states "I just don't know" acidosis resolved overnight 1 BM yesterday evening per nursing staff Review of Systems Review of Systems: All systems were reviewed with patient, however, she is still confused and answers "I don't know" to most questions. Physical Exam Physical Exam: CONSTITUTIONAL: WNWD, vitals as above, generally NAD, improved generally from yesterday. EYES: normal conjunctivae, no scleral icterus ENT: external ear and nose normal, mucous membranes are moist. NECK: trachea midline RESPIRATORY: clear to auscultation bilaterally, no crackles, rales or wheezes, normal respiratory effort CARDIOVASCULAR: regular rate and rhythm, S1 and 2 heard without murmurs, gallops or rubs, no JVD, no peripheral edema CHEST: inspection of chest was normal GASTROINTESTINAL: soft, nontender, no distension or fluid wave, no guarding MUSCULOSKELETAL: strength 5/5 throughout, head is normocephalic and atraumatic, neck supple, normal palpation of chest wall without tenderness SKIN: warm and dry NEUROLOGIC: No facial palsy, CN 2-12 grossly intact, she is able to awaken and say she is at the hospital but falls asleep again PSYCHIATRIC: alert and talking but somewhat confused to time and to some qeustions asked. Results & Data Results & Data ([facility]) Vital Signs (Past 12 Hours) Vital Signs Temp Pulse Pulse Pulse Resp BP Pulse Ox 01/03/22 11:52 36.3 C L 69 18 137/75 97 01/03/22 07:40 36.5 C 73 18 112/61 96 01/03/22 07:21 69 01/03/22 03:59 36.5 C 72 16 112/71 93 Laboratory Results Short CBC 01/02/22 01/03/22 Range/Units 15:02 09:16 WBC 6.18 5.00 (4.8-10.8) K/uL Hgb 12.6 11.8 L (12.0-16.0) g/dL Hct 38.2 35.1 L (37-47) % Plt Count 118 L 96 L (130-400) K/uL BMP 01/02/22 01/03/22 15:02 09:16 Sodium 139 136 Potassium 4.9 4.0 Chloride 116 H 107 Carbon Dioxide 12 L 21 BUN 55 H 49 H Creatinine 1.41 H 1.46 H Glucose 114 H 218 H Calcium 9.8 10.0 Liver Function 01/02/22 01/03/22 Range/Units 15:02 09:16 Total Bilirubin 1.0 0.7 (0.2-1.0) mg/dl AST 25 21 (13-39) U/L ALT 19 17 (7-52) U/L Alkaline Phosphatase 140 H 113 H (34-104) U/L Albumin 3.7 3.3 L (3.4-5.0) gm/dl Medications Administered Current Inpatient Medications Albuterol (Albuterol Hfa 8 Gm Inhaler) 2 puffs INH Q4H PRN PRN Reason: Shortness Of Breath Stop: 01/31/22 20:18 Albuterol (Albut/Ipratrop 3mg/0.5mg Neb 3 Ml Vial) 3 ml INH Q6R PRN; Protocol PRN Reason: sob/wheezing Stop: 01/31/22 20:59 Aspirin (Aspirin 81 Mg Ectab) [facility] Stop: 02/01/22 08:59 Last Admin: 01/03/22 10:11 Dose: 81 mg Documented by: Clopidogrel Bisulfate (Clopidogrel Bisulfate 75 Mg Tab) [facility] [place] Stop: 02/01/22 08:59 Last Admin: 01/03/22 10:11 Dose: 75 mg Documented by: Dextrose (Dextrose 50% 50 Ml Syringe) 25 - 50 ml IV UD PRN; Protocol PRN Reason: Hypoglycemia Protocol Stop: 02/01/22 16:40 Famotidine (Famotidine 40 Mg Tablet) [facility] Stop: 02/01/22 06:29 Last Admin: 01/03/22 05:38 Dose: Not Given Documented by: Glucagon (Glucagon For Inj 1 Mg Vial) 1 mg SQ UD PRN; Protocol PRN Reason: Hypoglycemia Protocol Stop: 02/01/22 16:40 Glucose (Glucose 10 Tabs/Tube) 4 - 8 tabs PO UD PRN; Protocol PRN Reason: Hypoglycemia Protocol Stop: 02/01/22 16:40 Glucose (Glucose 40% Gel 15 Gm Tube) 15 - 30 gm PO UD PRN; Protocol PRN Reason: Hypoglycemia Protocol Stop: 02/01/22 16:40 Heparin Sodium (Porcine) (Heparin Sod 5,000 Unit/0.5 Ml Vial) 5,000 units SQ Q12 [facility] Stop: 02/01/22 20:59 Last Admin: 01/03/22 10:11 Dose: 5,000 units Documented by: Ceftriaxone Sodium 1,000 mg/ (Dextrose) 50 mls @ 100 mls/hr IV Q24H [facility]; Protocol Stop: 01/11/22 00:00 Last Infusion: 01/02/22 23:49 Dose: Infused Documented by: Insulin Aspart (Insulin Aspart Per Unit) 0 units SC Q6 [facility] Stop: 02/02/22 00:00 Last Admin: 01/03/22 12:26 Dose: 1 units Documented by: Levothyroxine Sodium (Levothyroxine Sodium 88 Mcg Tablet) 88 mcg PO DAILYBB [facility] Stop: 02/01/22 06:29 Last Admin: 01/03/22 05:38 Dose: Not Given Documented by: Miscellaneous (Carbohydrates For Hypoglycemia ) 15 - 30 gm PO UD PRN PRN Reason: Hypoglycemia Protocol Stop: 02/01/22 16:40 Pantoprazole Sodium (Pantoprazole 40 Mg Tab) 40 mg PO DAILY [facility] Stop: 02/01/22 08:59 Last Admin: 01/03/22 10:11 Dose: 40 mg Documented by: Umeclidinium/Vilanterol (Umeclidinium/Vilanterol 62.5/25mcg 7 Puffs/Inhaler) 1 puffs INH QAM [facility] Stop: 02/01/22 08:59 Last Admin: 01/03/22 10:10 Dose: 1 puffs Documented by:
[2022-01-03] MEDS ORDERED: NITROFURANTOIN MONOHYDRATE 100 MG CAP PO SCH (21:00)
[2022-01-04] MEDS: FAMOTIDINE 40 MG TABLET PO SCH (06:11)
[2022-01-04] MEDS: LEVOTHYROXINE SODIUM 88 MCG TABLET PO SCH (06:11)
--- NOTE | 2022-01-04 08:22 | Nephrology Progress Note ---
Date of Service January 04, 2022 Assessment & Plan (1) History of acute renal failure: Plan: Had EARL [employer] w/ creat 2.4, K 5.7 in addition to acid base issues below. EARL from medication issues in part > ? if adherence concerns or multiple providers giving orders; may have had to do with frequent (tid) spironolactone dosing EARL resolved now. Will sign off DISCHARGE RECOMMENDATIONS -low threshold for IP or OP infectious diseases consultation re recurrent UTI -24-48 hrs before discharge start lasix 40 mg daily and spironolactone 25 mg daily (if GI concurs) -needs HOSPITAL DISCHARGE appt w/ me 2-4 wks after d/c -have renal nurse order bmp weekly x 3 after d/c (2) Disorder of acid-base balance: Plan: she presented with and certainly a few days prior to admission had NAGMA. pt can give little hx though she has had minimal diarrhea here. after course of sodium bicarbonate and with conservative measures, her metabolic acidosis has resolved. patient had a mixed non anion gap metabolic acidosis whether from diarrhea related to prior abtx and C diff versus ketoacidosis (though no ketones in admission urine); also w/ superimposed respiratory aklalosis beyond that needed to compensate for acidosis. acid base issues resolved as of 01/03 after conservative care; would continue to observe -daily bmp > f/u today's labs -no further sodium bicarb needed Admission and Anticipated Discharge Date Admission Date: January 01, 2022 Subjective seen on rounds this am at about 0930; no sob; no edema; confusion much improved; 2BM today so far Review of Systems Review of Systems: All systems reviewed & are unremarkable except as noted in Subjective Physical Exam Constitutional: well developed, well nourished and + frail appearing; no acute distress Eyes: EOM intact bilaterally ENMT: Ears: no external ear abnormality Nose: no external nose abnormality Mouth: + dry oral mucous membranes Neck: no nuchal rigidity Respiratory: normal respiratory effort Auscultation: + diminished lung sounds Cardiovascular: Rate/Rhythm: regular rate and regular rhythm Heart Sounds: no murmur Extremities: no edema Gastrointestinal (Abdomen): Inspection/Auscultation: normal bowel sounds Percussion/Palpation: abdomen soft; abdomen nontender Musculoskeletal: Extremities: + abnormal strength (generalized weakness but improving) Skin: no rashes, warm and dry Genitourinary: isaacs w/ ample urine Results & Data ([facility]) Vital Signs (Past 12 Hours) Vital Signs Temp Pulse Pulse Resp BP Pulse Ox 01/04/22 07:44 36.4 C L 70 17 161/71 H 96 01/04/22 03:46 36.4 C L 77 18 110/67 95 01/03/22 23:44 78 01/03/22 23:01 36.5 C 72 17 158/68 H 92 Laboratory Results 01/04/22 11:25 01/05/22 05:35
[2022-01-04] MEDS: INSULIN ASPART PER UNIT SC SCH ×4 (08:29→20:21)
[2022-01-04] MEDS: ASPIRIN 81 MG ECTAB PO SCH (08:31)
[2022-01-04] MEDS: CLOPIDOGREL BISULFATE 75 MG TAB PO SCH (08:32)
[2022-01-04] MEDS: PANTOprazole 40 MG TAB PO SCH (08:32)
[2022-01-04] MEDS: UMECLIDINIUM/VILANTEROL 62.5/25MCG 7 PUFFS/INHALER INH SCH (08:33)
[2022-01-04] MEDS: HEPARIN SOD 5,000 UNIT/0.5 ML VIAL SQ SCH ×2 (08:34→20:21)
[2022-01-04] MEDS ORDERED: CEFDINIR 300 MG CAP PO SCH (09:00)
[2022-01-04 11:40] LABS: Hematocrit (blood only) 38.3 % (37-47); Hemoglobin 12.6 g/dL (12.0-16.0); Mean Corpuscular Hemoglobin 28.6 pg (25-34); Mean Corpuscular Hgb Conc 32.9 g/dL (32-36); RDW Coefficient of Variation 16.1 % (11.5-14.5); RDW Standard Deviation 51.4 fL (36.4-46.3); White Blood Count 5.86 K/uL (4.8-10.8)
[2022-01-04 11:54] LABS: Mean Platelet Volume 10.5 fL (7.4-10.4); Platelet Count 99 K/uL (130-400)
[2022-01-04 11:59] LABS: BUN Creatinine Ratio 30.5 (10-20); Calcium 10.4 mg/dl (8.5-10.1); Creatinine Clr Calc Pharmacy 21.4 ml/min; Est GFR (African American) 36.1 ml/min; Est GFR (Non-African American) 31.2 ml/min; Potassium 4.6 mmol/L (3.5-5.1)
[2022-01-04] MEDS: ACETAMINOPHEN 500 MG TAB PO SCH ×2 (13:24→17:26)
[2022-01-04] MEDS ORDERED: ACETAMINOPHEN 500 MG TAB PO PRN (17:39)
--- NOTE | 2022-01-04 17:47 | Hospitalist Progress Note ---
Date of Service January 04, 2022 Assessment & Plan (1) Acute metabolic encephalopathy: Plan: Possibly secondary to underlying urinary tract infection versus other. Doubt HE as a cause. Ammonia level about the same as before and she is clinically resolved. She also had difficulty eating food this week because of weakness and confusion. Resolved to baseline. (2) Metabolic acidosis: Plan: Acute non-anion gap metabolic acidosis-resolved wtih bicarb drip (3) EARL (acute kidney injury): Plan: Lasix 20mg QOD on discharge 11/27, then spironolactone 25mg PO TID started 12/20. Likely related to diuretics vs infection. Will obtain urine studies and monitor for improvement with IVF given overnight. (4) Cirrhosis: Plan: compensated, avoid regular lactulose until she is eating well enough. (5) Acute UTI: Plan: noted h/o c-diff, E coli present in urine. She has adverse effects to PCNs, renal function not ideal for Bactrim, would avoid FQ based on age, cont cefdinir. (6) DM II (diabetes mellitus, type II), controlled: Plan: hypoglycemic on admission with a glucose of 46. This is improved and now within the normal range. Cont BSG q6 or ACHS and insulin correction only if needed. (7) Hypertension: Plan: currently controlled, hold diuretic therapy (8) PAF (paroxysmal atrial fibrillation): Plan: - Continue Plavix and baby aspirin - During last hospital stay the patient had 1 bout of A. fib with RVR in the setting of acute systemic noncardiac illness, spontaneous conversion to sinus rhythm. - Holding coreg with prior hx of bradycardia, put back on if tachycardic or develops afib (9) PAD (peripheral artery disease): Plan: -Chronic, stable (10) Hypothyroidism: Plan: chronic, stable, cont levothyroxine (11) DVT prophylaxis: Plan: heparin DNR Dispo-cont PCU monitoring. PT/OT, Nutrition consult. Surekha Singh DO [facility] Hospitalist Admission and Anticipated Discharge Date Admission Date: January 01, 2022 Subjective 86 yo F with known h/o cirrhosis presented with progressive weakness and confusion. She was so weak that family took her to [facility] where she had recently been discharged from. She was sent to the ER from [facility]. confusion has resolved she is doing well today poor appetite but open to trying some supplementation -doesn't like chocolate denies pain and states she doesn't take scheduled Tylenol will work on physical abilities today. Review of Systems Review of Systems: All systems reviewed negative except as indicated above. Physical Exam Physical Exam: CONSTITUTIONAL: WNWD, vitals as above, generally NAD EYES: normal conjunctivae, no scleral icterus ENT: external ear and nose normal, mucous membranes are moist. NECK: trachea midline RESPIRATORY: clear to auscultation bilaterally, no crackles, rales or wheezes, normal respiratory effort CARDIOVASCULAR: regular rate and rhythm, S1 and 2 heard without murmurs, gallops or rubs, no JVD, no peripheral edema CHEST: inspection of chest was normal GASTROINTESTINAL: soft, nontender, no distension or fluid wave, no guarding MUSCULOSKELETAL: strength 5/5 throughout, head is normocephalic and atraumatic, neck supple, normal palpation of chest wall without tenderness SKIN: warm and dry NEUROLOGIC: No facial palsy, CN 2-12 grossly intact, no gross focal deficits. PSYCHIATRIC: A & O x 3 Results & Data Results & Data ([facility]) Vital Signs (Past 12 Hours) Vital Signs Temp Pulse Pulse Resp BP Pulse Ox 01/04/22 16:02 36.3 C L 66 18 154/71 H 95 01/04/22 16:00 71 01/04/22 13:02 83 120/69 91 01/04/22 12:13 36.3 C L 76 17 173/79 H 97 01/04/22 08:00 69 01/04/22 07:44 36.4 C L 70 17 161/71 H 96 Laboratory Results Short CBC 01/04/22 Range/Units 11:25 WBC 5.86 (4.8-10.8) K/uL Hgb 12.6 (12.0-16.0) g/dL Hct 38.3 (37-47) % Plt Count 99 L (130-400) K/uL BMP 01/04/22 11:25 Sodium 134 L Potassium 4.6 Chloride 106 Carbon Dioxide 21 BUN 46 H Creatinine 1.51 H Glucose 186 H Calcium 10.4 H Medications Administered Current Inpatient Medications Acetaminophen (Acetaminophen 500 Mg Tab) 500 mg PO Q6 PRN PRN Reason: fever or pain Stop: 02/03/22 12:59 Albuterol (Albuterol Hfa 8 Gm Inhaler) 2 puffs INH Q4H PRN PRN Reason: Shortness Of Breath Stop: 01/31/22 20:18 Albuterol (Albut/Ipratrop 3mg/0.5mg Neb 3 Ml Vial) 3 ml INH Q6R PRN; Protocol PRN Reason: sob/wheezing Stop: 01/31/22 20:59 Aspirin (Aspirin 81 Mg Ectab) 81 mg PO QAM [facility] Stop: 02/01/22 08:59 Last Admin: 01/04/22 08:31 Dose: 81 mg Documented by: Cefdinir (Cefdinir 300 Mg Cap) 300 mg PO DAILY [facility]; Protocol Stop: 01/10/22 08:59 Clopidogrel Bisulfate (Clopidogrel Bisulfate 75 Mg Tab) 75 mg PO QAM [facility] Stop: 02/01/22 08:59 Last Admin: 01/04/22 08:32 Dose: 75 mg Documented by: Dextrose (Dextrose 50% 50 Ml Syringe) 25 - 50 ml IV UD PRN; Protocol PRN Reason: Hypoglycemia Protocol Stop: 02/01/22 16:40 Famotidine (Famotidine 40 Mg Tablet) 40 mg PO DAILYBB [facility] Stop: 02/01/22 06:29 Last Admin: 01/04/22 06:11 Dose: 40 mg Documented by: Gabapentin (Gabapentin 300 Mg Cap) 300 mg PO HS [facility] Stop: 02/03/22 20:59 Glucagon (Glucagon For Inj 1 Mg Vial) 1 mg SQ UD PRN; Protocol PRN Reason: Hypoglycemia Protocol Stop: 02/01/22 16:40 Glucose (Glucose 10 Tabs/Tube) 4 - 8 tabs PO UD PRN; Protocol PRN Reason: Hypoglycemia Protocol Stop: 02/01/22 16:40 Glucose (Glucose 40% Gel 15 Gm Tube) 15 - 30 gm PO UD PRN; Protocol PRN Reason: Hypoglycemia Protocol Stop: 02/01/22 16:40 Heparin Sodium (Porcine) (Heparin Sod 5,000 Unit/0.5 Ml Vial) 5,000 units SQ Q12 [facility] Stop: 02/01/22 20:59 Last Admin: 01/04/22 08:34 Dose: 5,000 units Documented by: Insulin Aspart (Insulin Aspart Per Unit) 0 units SC ACHS [facility] Stop: 02/02/22 16:29 Last Admin: 01/04/22 17:17 Dose: Not Given Documented by: Levothyroxine Sodium (Levothyroxine Sodium 88 Mcg Tablet) 88 mcg PO DAILYBB [facility] Stop: 02/01/22 06:29 Last Admin: 01/04/22 06:11 Dose: 88 mcg Documented by: Miscellaneous (Carbohydrates For Hypoglycemia ) 15 - 30 gm PO UD PRN PRN Reason: Hypoglycemia Protocol Stop: 02/01/22 16:40 Pantoprazole Sodium (Pantoprazole 40 Mg Tab) 40 mg PO DAILY [facility] Stop: 02/01/22 08:59 Last Admin: 01/04/22 08:32 Dose: 40 mg Documented by: Umeclidinium/Vilanterol (Umeclidinium/Vilanterol 62.5/25mcg 7 Puffs/Inhaler) 1 puffs INH QAM [facility] Stop: 02/01/22 08:59 Last Admin: 01/04/22 08:33 Dose: 1 puffs Documented by:
[2022-01-04] MEDS ORDERED: GABAPENTIN 300 MG CAP PO SCH (21:00)
[2022-01-05] MEDS: FAMOTIDINE 40 MG TABLET PO SCH (06:03)
[2022-01-05] MEDS: LEVOTHYROXINE SODIUM 88 MCG TABLET PO SCH (06:03)
[2022-01-05 06:32] LABS: BUN Creatinine Ratio 33.6 (10-20); Calcium 10.1 mg/dl (8.5-10.1); Creatinine Clr Calc Pharmacy 24.7 ml/min; Est GFR (African American) 42.9 ml/min; Magnesium 1.6 mg/dl (1.7-2.4); Potassium 4.1 mmol/L (3.5-5.1)
[2022-01-05] MEDS: INSULIN ASPART PER UNIT SC SCH ×2 (08:04→12:20)
[2022-01-05] MEDS: PANTOprazole 40 MG TAB PO SCH (08:35)
[2022-01-05] MEDS: ASPIRIN 81 MG ECTAB PO SCH (08:35)
[2022-01-05] MEDS: CLOPIDOGREL BISULFATE 75 MG TAB PO SCH (08:36)
[2022-01-05] MEDS: HEPARIN SOD 5,000 UNIT/0.5 ML VIAL SQ SCH (08:36)
[2022-01-05] MEDS: UMECLIDINIUM/VILANTEROL 62.5/25MCG 7 PUFFS/INHALER INH SCH (08:36)
[2022-01-05] MEDS ORDERED: CEFDINIR 300 MG CAP PO SCH (09:00)
[2022-01-05] MEDS ORDERED: guaiFENesin 600 MG TABCR PO PRN (09:30)
--- NOTE | 2022-01-05 14:59 | Discharge Summary ---
Date of Service January 05, 2022 Admission HPI Per Admitting Provider This is an 86-year-old female with PMHx of PAD s/p stent L subclavian, superior mesenteric artery, L iliac and fempop bypass, infrarenal AAA measuring 3.9 cm, HTN, HLD, CKD III, insulin dependent DM II, COPD, hypothyroidism, history of C. difficile in May 2021. Patient was recently admitted here for a prolonged stay at [facility] from 11/11-11/27 2021 for sepsis secondary to UTI with Enterococcus faecalis, anemia secondary to GI bleed where she required transfusion, C. difficile colitis where she was treated with oral Vanco, thrombocytopenia secondary to history of cirrhosis and acute GI bleed, transaminitis, hypokalemia. She her course was further complicated by developing pneumonia where she was treated with IV Unasyn during this hospital stay, as well as new onset A. fib with RVR in the setting of pulmonary illness and fluid overload after resuscitation from sepsis. Daughter is present at bedside. Reports pt was discharged from [facility] 1 week ago, and went to [facility] and has been staying in her own apartment, and lives by herself. Last Monday she started feeling weak. Family noticed that she was having difficulty picking things up with both of her hands. Yesterday morning her glucose was ok. She returned to [facility] yesterday because of difficulty walking and weakness and stayed overnight. [facility] told daughter that she should bring the hospital due to worsening status. She had started wearing adult diapers while at [facility] due to incontinence, and likely because of the addition of diuretics during that stay. Daughter reports increased swelling in her legs during stay at [facility] so was placed on aldactone and lasix. Patient noticed increased frequency worse within the past 2 to 3 days. Denies hematuria and dysuria. Pt has been following outpatient with nephrology and was told her Cr. function was slightly lower, and was instructed to keep taking lasix 20 mg daily and spironolactone once daily. She presents today from home via EMS for increased confusion and altered mental status per family. She was nonresponsive per [facility], she had a glucose level of 40 in the field and treated with glucose replacement, with glucose up to 60 upon arrival to the ER, so was given 1 amp of dextrose. She is now more awake however continues to mumble her speech at times. Admission Exam Per Admitting Provider General: awake, alert, no apparent distress Head: Normocephalic, atraumatic ENT: PERRL, EOMI, no pharyngeal exudate, mucous membranes moist Chest: Clear to auscultation, on room air, no adventitious breath sounds Cardiac: Regular rate and rhythm, no murmur, no JVD, normal peripheral pulses, good capillary refill Abdominal: NABS x 4 quadrants, soft, nondistended, nontender to palpation, no rebound or guarding Extremities: Normal inspection, no peripheral edema or erythema, calfs nontender to palpation Psych: Normal mood and affect Neuro: AAO x 3, thought process is occasionally confused and mumbled speech, strength intact bilaterally and rated 3/5 in lower extremities and 4/5 in upper extremities bilaterally, no motor deficits, speech is clear, no peripheral sensory deficits Principal Diagnosis Acute metabolic encephalopathy secondary to UTI Nonanion gap metabolic acidosis-resolved Acute kidney injury Cirrhosis Generalized weakness with ambulatory dysfunction Discharge Exam CONSTITUTIONAL: WNWD, vitals as above, generally NAD EYES: normal conjunctivae, no scleral icterus ENT: external ear and nose normal, mucous membranes are moist. NECK: trachea midline RESPIRATORY: clear to auscultation bilaterally, no crackles, rales or wheezes, normal respiratory effort CARDIOVASCULAR: regular rate and rhythm, S1 and 2 heard without murmurs, gallops or rubs, no JVD, no peripheral edema CHEST: inspection of chest was normal GASTROINTESTINAL: soft, nontender, no distension or fluid wave, no guarding MUSCULOSKELETAL: strength 5/5 throughout, head is normocephalic and atraumatic, neck supple, normal palpation of chest wall without tenderness SKIN: warm and dry NEUROLOGIC: No facial palsy, CN 2-12 grossly intact, no gross focal deficits. PSYCHIATRIC: A & O x 3 Discharge Data Allergies Allergy/AdvReac Type Severity Reaction Status Date / Time vitamin E (d-alpha Allergy Intermediate ITCHY Unverified 01/01/22 16:17 tocopherol) RASH, HIVES--PER [facility] 09/21/21 ENCOUNTER amoxicillin AdvReac Intermediate STOMACH Unverified 01/01/22 16:17 UPSET--PER [facility] 09/21/21 ENCOUNTER clavulanic acid AdvReac Intermediate STOMACH Unverified 01/01/22 16:17 UPSET--PER [facility] 09/21/21 ENCOUNTER Consultations 01/01/22 15:23 ED Decision to Admit Stat 01/03/22 07:00 Consult Nephrology Routine Ordered Studies Laboratory Results WBC 5.86 K/uL (4.8-10.8) 01/04/22 11:25 RBC 4.40 M/uL (4.2-5.4) 01/04/22 11:25 Hgb 12.6 g/dL (12.0-16.0) 01/04/22 11:25 Hct 38.3 % (37-47) 01/04/22 11:25 MCV 87.0 fL (80-100) 01/04/22 11:25 MCH 28.6 pg (25-34) 01/04/22 11:25 MCHC 32.9 g/dL (32-36) 01/04/22 11:25 RDW Std Deviation 51.4 fL (36.4-46.3) H 01/04/22 11:25 RDW Coeff of Daniela 16.1 % (11.5-14.5) H 01/04/22 11:25 Plt Count 99 K/uL (130-400) L 01/04/22 11:25 MPV 10.5 fL (7.4-10.4) H 01/04/22 11:25 Immature Gran % (Auto) 0.8 % 01/01/22 13:06 Neut % (Auto) 60.9 % 01/01/22 13:06 Lymph % (Auto) 24.4 % 01/01/22 13:06 [place] % (Auto) 11.9 % 01/01/22 13:06 Eos % (Auto) 1.4 % 01/01/22 13:06 Baso % (Auto) 0.6 % 01/01/22 13:06 Neut # (Auto) 3.01 K/uL (1.4-6.5) 01/01/22 13:06 Lymph # (Auto) 1.21 K/uL (1.2-3.4) 01/01/22 13:06 [place] # (Auto) 0.59 K/uL (0.11-0.59) 01/01/22 13:06 Eos # (Auto) 0.07 K/uL (0-0.5) 01/01/22 13:06 Baso # (Auto) 0.03 K/uL (0-0.2) 01/01/22 13:06 Immature Gran # (Auto) 0.04 K/uL (0.00-0.02) H 01/01/22 13:06 PT 11.9 Seconds (9.0-12.0) 01/03/22 09:16 INR 1.2 (0.9-1.1) H 01/03/22 09:16 APTT 29.7 Seconds (21.0-31.0) 01/01/22 13:06 PTT Ratio 1.1 01/01/22 13:06 ABG pH 7.33 (7.35-7.45) L 01/02/22 15:02 ABG pCO2 28 mmHg (35-46) L 01/02/22 15:02 ABG pO2 74 mmHg (80-95) L 01/02/22 15:02 ABG HCO3 15 mmol/L (19-24) L 01/02/22 15:02 ABG O2 Saturation 95.0 % (90-95) 01/02/22 15:02 ABG Base Excess -9.9 mEq/L (-9-1.8) L 01/02/22 15:02 Alan Test POS (Pos) 01/02/22 15:02 VBG pH 7.37 (7.36-7.41) 01/03/22 09:16 VBG pCO2 40 mmHg (38-50) 01/03/22 09:16 VBG pO2 40 mmHg 01/03/22 09:16 VBG HCO3 23 mmol/L 01/03/22 09:16 VBG O2 Saturation 71.4 % 01/03/22 09:16 VBG Base Excess -2.4 mEq/L 01/03/22 09:16 Barometric Pressure 738.6 mm/Hg 01/03/22 09:16 Oxygen Given ROOM AIR 01/02/22 15:02 Sodium 137 mmol/L (136-145) 01/05/22 05:35 Potassium 4.1 mmol/L (3.5-5.1) 01/05/22 05:35 Chloride 108 mmol/L (98-107) H 01/05/22 05:35 Carbon Dioxide 21 mmol/L (21-32) 01/05/22 05:35 Anion Gap 8 (3-11) 01/05/22 05:35 BUN 44 mg/dl (6-23) H 01/05/22 05:35 Creatinine 1.31 mg/dl (0.6-1.2) H 01/05/22 05:35 Est Cr Clr Drug Dosing 24.7 ml/min 01/05/22 05:35 Est GFR ( Amer) 42.9 ml/min 01/05/22 05:35 Est GFR (Non-Af Amer) 37.0 ml/min 01/05/22 05:35 BUN/Creatinine Ratio 33.6 (10-20) H 01/05/22 05:35 Glucose 116 mg/dl (70-99(Fasting)) H 01/05/22 05:35 POC Glucose 171 mg/dl (70-99) H 01/05/22 11:24 Estimat Average Glucose 148 mg/dl 01/02/22 15:02 Hemoglobin A1c 6.8 % (4.5-5.6) H 01/02/22 15:02 Lactate 0.8 mmol/L (0.4-2.0) 01/01/22 13:06 Calcium 10.1 mg/dl (8.5-10.1) 01/05/22 05:35 Phosphorus 3.0 mg/dl (2.5-4.9) 01/05/22 05:35 Magnesium 1.6 mg/dl (1.7-2.4) L 01/05/22 05:35 Total Bilirubin 0.7 mg/dl (0.2-1.0) 01/03/22 09:16 AST 21 U/L (13-39) 01/03/22 09:16 ALT 17 U/L (7-52) 01/03/22 09:16 Alkaline Phosphatase 113 U/L (34-104) H 01/03/22 09:16 Ammonia 40.0 umol/L (18-72) 01/04/22 11:25 Troponin I < 0.03 ng/ml (0-0.04) 01/01/22 13:06 Total Protein 6.7 gm/dl (6.0-8.3) 01/03/22 09:16 Albumin 3.3 gm/dl (3.4-5.0) L 01/03/22 09:16 Globulin 3.4 gm/dl (2.5-4.0) 01/03/22 09:16 Albumin/Globulin Ratio 1.0 (0.9-2) 01/03/22 09:16 Procalcitonin 0.06 ng/ml (0-0.5) 01/01/22 13:06 TSH 4.376 uIu/ml (0.300-4.500) 01/01/22 15:47 Urine Color Yellow 01/01/22 13:14 Urine Appearance Cloudy (Clear) A 01/01/22 13:14 Urine pH 5.0 (4.5-7.5) 01/01/22 13:14 Ur Specific Taylor 1.008 (1.000-1.030) 01/01/22 13:14 Urine Protein Negative (Negative) 01/01/22 13:14 Urine Glucose (UA) Negative (Negative) 01/01/22 13:14 Urine Ketones Negative (Negative) 01/01/22 13:14 Urine Blood Trace (Negative) H 01/01/22 13:14 Urine Nitrite Negative (Negative) 01/01/22 13:14 Urine Bilirubin Negative (Negative) 01/01/22 13:14 Urine Urobilinogen Negative (Negative) 01/01/22 13:14 Ur Leukocyte Esterase 3+ (Negative) H 01/01/22 13:14 Urine WBC (Auto) >30 /hpf (0-5) H 01/01/22 13:14 Urine RBC (Auto) 0-4 /hpf (0-4) 01/01/22 13:14 U Hyaline Cast (Auto) 0 /lpf (0-5) 01/01/22 13:14 U Epithel Cells (Auto) 0-5 /lpf (0-5) 01/01/22 13:14 Urine Bacteria (Auto) 2+ (Negative) H 01/01/22 13:14 Influ A Molecular Assay Negative (Negative) 01/01/22 13:14 Influ B Molecular Assay Negative (Negative) 01/01/22 13:14 SARS-CoV-2, RNA, NAAT NEGATIVE (NEGATIVE) 01/05/22 13:35 Impressions Chest X-Ray 01/01/22 12:49 XR chest 1V portable CLINICAL HISTORY: SEPSIS COMPARISON STUDY: Chest radiograph November 26, 2021. Chest CT November 08, 2021. FINDINGS: No pneumothorax or pleural effusion is noted. There is no evidence for pulmonary edema. Cardiomediastinal silhouette is stable. Vascular stent projects over the left upper hemithorax. There is suspected right basilar airspace opacity. Skin fold project over the right chest. IMPRESSION: Right basilar airspace opacity. This may reflect a focus of pneumonia. Radiographic follow-up to ensure resolution is recommended. ACT 112: Negative or not required by law. Electronically signed by: Phan Camarillo M.D. 01/01/2022 1:[address] 01/01/22 12:[address] DOSE: 1094.67 mGycm HISTORY: Altered mental status. TECHNIQUE: Multiaxial CT images of the head were performed without the use of intravenous contrast. Automated exposure control was utilized for this study. A dose lowering technique was utilized adhering to the principles of ALARA. Comparison: Head CT 11/08/2021. Findings: Motion artifact. Old postoperative changes within the left posterior maxilla, unchanged. The paranasal sinuses and mastoid air cells are clear. The calvarium and skull base are intact. The ventricles and sulci are within normal limits. There is no mass, hematoma, midline shift, or acute infarct. Impression: Motion artifact. No definite acute intracranial abnormality. ACT 112: Negative or not required by law. Electronically signed by: Sunday Enciso M.D. 01/01/2022 3:11 PM Abdomen/Pelvis CT 01/02/22 16:[address] WITHOUT CONTRAST CT DOSE: 526.53 mGy.cm HISTORY: cirrhotic, +UTI, acidosis, altered mental status TECHNIQUE: Multiaxial CT images of the abdomen and pelvis were performed without contrast. A dose lowering technique was utilized adhering to the principles of ALARA. COMPARISON STUDY: Abdomen and pelvis CT 11/09/2021. FINDINGS: There is again noted a subacute inferior endplate compression fracture demonstrating mild loss of height at T10. The left lung base is clear. Right lower lobe airspace opacity has significantly improved in the interval. This favors a resolving pneumonia. No acute fractures within the visualized osseous structures. Small fat-containing right inguinal hernia, unchanged. The bladder is mildly distended. No bladder wall thickening. The small focus of gas within the bladder lumen. This is likely due to prior catheterization. The uterus and bilateral adnexa are unremarkable. No pelvic free fluid. Cirrhotic liver again noted. Cholelithiasis. No gallbladder wall thickening. The unenhanced pancreas, spleen, and adrenal glands are unremarkable. No renal or ureteral stones. No hydronephrosis. A 3.5 cm left renal cyst is again noted. No retroperitoneal lymphadenopathy. The superior mesenteric artery stent is noted. Extensive calcified plaque within the abdominal aorta. The 3.8 x 3.6 cm infrarenal abdominal aortic aneurysm. This remains unchanged. No retroperitoneal hematoma. A few upper abdominal varicosities are again noted. Suboptimal evaluation for bowel pathology due to the lack of intravenous and oral contrast. However, there is no definite bowel wall thickening or obstruction. Colonic diverticulosis. No evidence for acute diverticulitis. The appendix is not identified. IMPRESSION: 1. Cirrhotic liver, unchanged. 2. Cholelithiasis. No gallbladder wall thickening. 3. Mildly distended bladder containing a small amount of gas. The gas is likely secondary to the prior catheterization. 4. No hydronephrosis. 5. Colonic diverticulosis. No evidence for acute diverticulitis. 6. Significant improvement of the right lower lobe airspace opacities consistent with a resolving pneumonia. 7. No change in the 3.8 x 3.6 cm infrarenal abdominal aortic aneurysm. 8. No change in the subacute mild inferior endplate compression fracture at T10. ACT 112: Negative or not required by law. Electronically signed by: Sunday Enciso M.D. 01/02/2022 4:35 PM Hospital Course (1) Acute metabolic encephalopathy: Possibly secondary to underlying urinary tract infection versus other. Doubt HE as a cause. Ammonia level about the same as before despite clinical improvement. She also had difficulty eating food this week because of weakness and confusion. Resolved to baseline and she is now eating solid foods without issue and with a demonstrated improvement in her appetite. (2) Metabolic acidosis: Acute non-anion gap metabolic acidosis-resolved wtih bicarb drip (3) EARL (acute kidney injury): Likely related to diuretics vs infection/dehydration. Diuretics were held on admission and IVF given. Creatinine improved to 1.3 at time of discharge. Nephrology consulted and follows her as outpatient. They made recommendations to restart diuretics and follow BMP weekly x 3 weeks. She was sent home on Lasix 40mg Daily and spironolactone 25mg PO daily. Follow-up with nephrology in 2-4 weeks recommended. (4) Cirrhosis: compensated, avoid regular lactulose for now. Goal BM 2-3 times daily. (5) Acute UTI: noted h/o c-diff, E coli present in urine. She has adverse effects to PCNs, renal function not ideal for Bactrim, would avoid FQ based on age, cont cefdinir. (6) DM II (diabetes mellitus, type II), controlled: hypoglycemic on admission with a glucose of 46. This is improved and now within the normal range and may have originally contributed to her confusion on admission. A1C is 6.8 reflecting good control. (7) Hypertension: (8) PAF (paroxysmal atrial fibrillation): chronic, stable, cont current medical therapy (9) PAD (peripheral artery disease): -Chronic, stable, cont current medical therapy. (10) Hypothyroidism: chronic, stable, cont levothyroxine (11) DVT prophylaxis: heparin DNR Dispo-to SNF for rehab as a transition to home. PCP follow-up in 1 week. Nephro follow-up in 2-4 weeks wt bmp weekly x 3 as above. I did call daughter this morning and review care plan and thoughts with her by phone. She verbalized understanding and verbalized she would update all other family members. Surekha Singh DO [facility] Hospitalist Total Time Total Time Spent Total Time Spent (In Minutes): 60 Discharge Plan Discharge Items Patient Disposition: Transfer [facility] Reason For Visit: METABOLIC ENCEPHALOPATHY Discharge Diagnosis: Acute metabolic encephalopathy secondary to UTI Nonanion gap metabolic acidosis-resolved Acute kidney injury Cirrhosis Generalized weakness with ambulatory dysfunction Condition on Discharge: Good Activity: Resume your previous activity Non-emergency contact: Primary Care Provider Call non-emergency contact if: you have any medication questions, your symptoms worsen, your pain is not controlled, your pain is worsening, your pain is unusual for you, your pain is concerning for you and you have a fever Follow-up/Referrals: Debora Snow MD, PhD [Physician] - (Date & Time 03/14/2022 1:00 PM Provider Debora Snow MD Department Nephrology, [facility] ) Guido Valera [Primary Care Provider] - Diet: Carb Consistent or DM2 Diet Texture: Easy to Chew Addtl Attending Provider Instructions: Please note medication changes per discharge list below. It is recommended that you follow-up with Dr. Snow from Nephrology in 2-4 weeks. Also, she would like you to have a weekly BMP (nonfasting bloodwork) x 3 weeks. This will be ordered by the nephrology nurse who will instruct you where to go for bloodwork. It is recommended that you follow-up with your primary care physician in 1 week to discuss new medication changes and ensure close follow-up with Nephrology above. Also, it may be desirable for a referral to gynecology or urogynecology for assistance with bladder prolapse and management of chronic vaginal itching. assisted topical steroids in this area may lead to side effects including thinning of the skin. It is recommended to not exceed 2000mg of acetaminophen daily in setting of liver disease. It was a pleasure taking care of you! Please call if you have any questions or problems. You can reach a [facility] hospitalist on duty at [facility] 24 hours a day by calling [phone]. Take care of yourself. Surekha Singh, DO [facility] Hospitalist Pending Studies at Discharge: No Stand-Alone Forms: My [facility] Skilled Items Patient informed of condition?: Yes DNR: Yes Discharge Level of Care: Skilled Communicable Disease: No Discharge Prognosis: Stable Lines: None Urinary Catheter: No Medications and DC Order Prescriptions: Continued atorvastatin 20 mg tablet 20 mg PO QAM RF: 0 clopidogrel 75 mg tablet 75 mg PO QAM RF: 0 aspirin [Aspirin Low Dose] 81 mg Tablet,Delayed Release (Dr/Ec) 81 mg PO QAM RF: 0 levothyroxine 88 mcg tablet 88 mcg PO QAM RF: 0 albuterol sulfate [Ventolin HFA] 90 mcg/actuation HFA aerosol inhaler 2 puff inhalation Q4H PRN (Reason: Shortness Of Breath) RF: 0 famotidine 40 mg tablet 40 mg PO DAILYBB RF: 0 gabapentin 300 mg capsule 300 mg PO HS RF: 0 ferrous sulfate [FeroSul] 325 mg (65 mg iron) tablet 325 mg PO QAM RF: 0 insulin aspart U-100 100 unit/mL (3 mL) insulin pen 16 unit SUBCUT AC RF: 0 Januvia 50 mg tablet 50 mg PO QAM RF: 0 Saccharomyces boulardii 250 mg Capsule 250 mg PO AC RF: 0 acetaminophen [Tylenol] 325 mg Tablet 650 mg PO Q4 MDD 3g PRN (Reason: temp>100) RF: 0 pantoprazole [Protonix] 40 mg Tablet,Delayed Release (Dr/Ec) 40 mg PO DAILY RF: 0 Tresiba FlexTouch U-200 200 unit/mL (3 mL) insulin pen 18 unit SUBCUT DAILY RF: 0 ipratropium-albuterol 0.5 mg-3 mg(2.5 mg base)/3 mL solution for nebulization 3 ml INHALATION Q6 RF: 0 Anoro Ellipta 62.5-25 mcg/actuation Blister With Device 1 inh INHALATION QAM RF: 0 Changed furosemide 40 mg tablet 40 mg PO DAILY Qty: 30 RF: 0 spironolactone 25 mg tablet 25 mg PO DAILY Qty: 30 RF: 0 guaifenesin [Mucus Relief ER] 600 mg tablet extended release 12hr 600 mg PO BID PRN (Reason: congestion) Qty: 0 RF: 0 Discharge Orders: Discharge Order (Routine); Ordered 01/05/22 Ordered By: Surekha Mcclellan/Other Patient Handouts: Hypoglycemia (Low Blood Sugar), Managing Type 2 Diabetes Admission Data Admit Date/Time: 01/01/22 16:23 Attending Provider: Surekha Singh Admit Provider: Lizzie Vaca Primary Care Provider: Guido Valera Other Providers: Michael Bhat ; Lizzie Vaca ; Debora Snow
== END 2022-01-05 15:15 | DRG 689 ==
LOC: ED 12:26 → 2W 16:23 → SUATTDRO 16:23 → 2W 19:51 → 2S 01-02 18:50

== ENCOUNTER 2022-09-12 03:51 | Inpatient (IN) ==
--- NOTE | 2022-09-12 04:11 | Emergency Department Note ---
History of Present Illness General Chief complaint: Back Injury/Pain Time Seen by Provider: 09/12/22 03:59 History of Present Illness This 86-year-old female patient presents to the emergency department via EMS for acute on chronic back pain and abdominal pain. She states that she has an area in her left lower back that acts up and causes severe pain about once a year, but this is much worse than her typical chronic pain. About 2 weeks ago she started with pain in the upper part of the chest that has now moved down to her upper abdomen and left lower back. She denies any injury or trauma and denies any falls. She is on Plavix for history of multiple stents due to her significant arterial disease. Her PCP gave her prednisone for the symptoms 2 days ago, but it hasn't seemed to helped yet. Has taken Tylenol with mild improvement of the symptoms. Symptoms are worse with moving or bending over. S eems to be better with laying flat. The pain radiates from her back into her upper and lower abdomen as well. No nausea or vomiting. No fevers or chills. Has been coughing intermittently recently, but has a history of chronic cough. No chest pain currently, but she had chest pain initially. No radiation of the pain into her legs, but has been getting "Yan Horses" from trying to push herself up in bed because of the back pain. Also has PAD in her legs. Home Medications Medication Instructions Recorded Confirmed Type aspirin 81 mg tablet,delayed 81 mg PO QAM 04/10/19 09/12/22 History release (Kendra Low Dose Aspirin) atorvastatin 20 mg tablet 20 mg PO QAM 04/10/19 09/12/22 History clopidogrel 75 mg tablet 75 mg PO QAM 04/10/19 09/12/22 History famotidine 40 mg tablet 40 mg PO DAILYBB 03/29/21 09/12/22 History ferrous sulfate 325 mg (65 mg 325 mg PO QAM 01/01/22 09/12/22 History iron) tablet (FeroSul) gabapentin 300 mg capsule 300 mg PO HS 01/01/22 09/12/22 History insulin degludec 200 unit/mL (3 50 unit subcut DAILY 01/01/22 09/12/22 History mL) subcutaneous pen (Tresiba FlexTouch U-200 insulin) pantoprazole 40 mg tablet,delayed 40 mg PO DAILY 01/01/22 09/12/22 History release (Protonix) baclofen 10 mg tablet 10 mg PO HS PRN Pain 09/12/22 09/12/22 History empagliflozin 25 mg tablet 25 mg PO DAILY 09/12/22 09/12/22 History (Jardiance) furosemide 40 mg tablet 20 mg PO DAILY 09/12/22 09/12/22 History levothyroxine 100 mcg tablet 100 mcg PO QAM 09/12/22 09/12/22 History prednisone 20 mg tablet 40 mg PO DAILY 09/12/22 09/12/22 History Allergies Allergy/AdvReac Type Severity Reaction Status Date / Time vitamin E (d-alpha Allergy Intermediate ITCHY Unverified 01/01/22 16:17 tocopherol) RASH, HIVES--PER [facility] 09/21/21 ENCOUNTER amoxicillin AdvReac Intermediate STOMACH Unverified 01/01/22 16:17 UPSET--PER [facility] 09/21/21 ENCOUNTER clavulanic acid AdvReac Intermediate STOMACH Unverified 01/01/22 16:17 UPSET--PER [facility] 09/21/21 ENCOUNTER dulaglutide [From Trulicity] AdvReac Vomiting Verified 09/12/22 08:47 Past Med/Surg History Medical History Anemia Aneurysm of infrarenal abdominal aorta Atrial fibrillation with rapid ventricular response Cholelithiasis Cirrhosis CKD (chronic kidney disease) stage 3, GFR 30-59 ml/min COPD (chronic obstructive pulmonary disease) Emphysema Fall GI bleed History of Graves' disease Hypothyroid Pneumonia Sepsis Sinus bradycardia Thrombocytopenia Type 2 diabetes mellitus Surgical History History of appendectomy History of intravascular stent placement Reported Left subclavian, superior mesenteric artery, L iliac, L fempop bypass - Dr [facility] Family History Other Diabetes Hypertension Social History Smoking Status: Former smoker Hx Alcohol Use: Yes Alcohol Intake Frequency: Monthly or Less Alcohol Intake Frequency Comment: Holidays Hx Substance Use: No Preferred Language: Kazakh Communication Ability: Impaired Hall Tender Required: No Beliefs That Will Affect Care: None marital status: / Current Living Situation: Alone Current Living Situation Comment: unable to determine How many Children do You have: 3 Other Information That Helps Us Care for You: No Feels Safe at Home: Yes Safety Concerns: Feels Safe At This Time Assistive Devices: Denture - Upper and Denture - Lower Review of Systems See HPI for pertinent positives & negatives. and A total of 10 systems reviewed and were otherwise negative Physical Exam Vital Signs Vital Signs - 24 hr 09/12/22 03:41 09/12/22 05:41 09/12/22 05:41 Temperature 36.5 C Temperature Source Oral Pulse Rate 66 Pulse Rate [Apical] 77 Pulse Rate from SpO2 Sensor Pulse Rhythm [Apical] Pulse Strength [Apical] Respiratory Rate 20 20 Respiratory Effort / Characteristics Non-Labored Spontaneous Respiratory Depth Normal Respiratory Pattern Blood Pressure 112/94 Blood Pressure [Left Arm] 142/74 H Blood Pressure Mean 100 Blood Pressure Mean [Left Arm] 96 Blood Pressure Position [Left Arm] Pulse Oximetry 97 95 95 Oxygen Delivery Method Room Air Room Air Room Air Oxygen Flow Rate Sepsis Recent Fever Within 48 Hours No Sepsis New/Unexplained Change in Mental Status No Sepsis Action Taken by Nursing No Action Required Oxygen Flow Rate - Titration Pulse Oximetry Post Tiitration 09/12/22 06:00 09/12/22 07:00 09/12/22 07:54 Temperature Temperature Source Pulse Rate 69 Pulse Rate [Apical] 67 Pulse Rate from SpO2 Sensor 67 Pulse Rhythm [Apical] Regular Pulse Strength [Apical] Normal Respiratory Rate 12 18 Respiratory Effort / Characteristics Non-Labored Respiratory Depth Normal Respiratory Pattern Regular Blood Pressure 151/58 H Blood Pressure [Left Arm] 162/54 H Blood Pressure Mean 89 Blood Pressure Mean [Left Arm] 90 Blood Pressure Position [Left Arm] Lying Pulse Oximetry 94 93 84 L Oxygen Delivery Method Room Air Room Air Nasal Cannula Oxygen Flow Rate 0 Sepsis Recent Fever Within 48 Hours Sepsis New/Unexplained Change in Mental Status Sepsis Action Taken by Nursing Oxygen Flow Rate - Titration 3 Pulse Oximetry Post Tiitration 93 09/12/22 09:00 Temperature Temperature Source Pulse Rate Pulse Rate [Apical] 59 L Pulse Rate from SpO2 Sensor Pulse Rhythm [Apical] Regular Pulse Strength [Apical] Normal Respiratory Rate 18 Respiratory Effort / Characteristics Non-Labored Respiratory Depth Normal Respiratory Pattern Regular Blood Pressure Blood Pressure [Left Arm] 184/109 H Blood Pressure Mean Blood Pressure Mean [Left Arm] 134 Blood Pressure Position [Left Arm] Lying Pulse Oximetry 99 Oxygen Delivery Method Room Air Oxygen Flow Rate Sepsis Recent Fever Within 48 Hours Sepsis New/Unexplained Change in Mental Status Sepsis Action Taken by Nursing Oxygen Flow Rate - Titration Pulse Oximetry Post Tiitration VITALS: Vitals are noted on the nurse's note and reviewed by myself. No abnorma lities noted. GENERAL: 86-year-old female, who appears in pain, but in no acute distress, non-diaphoretic, well-developed well-nourished. SKIN: No obvious lacerations or abrasions. The skin was without rashes, erythema, edema, or bruising. HEAD: Normocephalic atraumatic. EYES: Pupils equal round and reactive to light and accommodation. The Extraocular movements intact. NECK: Supple without nuchal rigidity. No cervical spine tenderness. No paraspinous muscle tenderness. No lymphadenopathy. HEART: Regular rate and rhythm without murmurs gallops or rubs. LUNGS: Clear to auscultation bilaterally without wheezes, rales or rhonchi. CHEST: The patient is diffusely tender to palpation over the left side of the anterior, posterior, lateral chest wall. No specific point tenderness. No fracture crepitus or flail chest. ABDOMEN: Positive bowel sounds x 4. Normal tympanic percussion. Soft, tender to palpation in the epigastric and right upper quadrant, without masses or organomegaly. Pitts sign mildly positive. MUSCULOSKELETAL: There is tenderness over the thoracic and lumbar spinous processes as well as the L>R paraspinal muscles. There are mild muscle spasms present. The patient is slow to move around with maximum tenderness with movement on the bed. Negative straight leg raise test. NEURO: Patient was alert and oriented to person place and time. Normal sensation to light and sharp touch of the bilateral upper and lower extremities. Course Administered Medications Gabapentin (Gabapentin 300 Mg Cap) 300 mg PO HS AAKASH Stop: 10/12/22 20:59 Last Admin: 09/12/22 20:21 Dose: 300 mg Documented By: OO Heparin Sodium (Porcine) (Heparin Sod 5,000 Unit/0.5 Ml Vial) 5,000 units SQ Q12 AAKASH Stop: 10/12/22 20:59 Last Admin: 09/12/22 20:19 Dose: 5,000 units Documented By: OO Insulin Aspart (Insulin Aspart Per Unit) 0 units SC ACHS AAKASH Stop: 10/12/22 11:29 Last Admin: 09/12/22 16:44 Dose: Not Given Documented By: Admin: 09/12/22 11:46 Dose: Not Given Documented By: ERIKA Co-signed By: KELLY Magnesium Oxide (Magnesium Oxide 400 Mg Tab) 400 mg PO Q24H AAKASH Stop: 10/12/22 15:14 Last Admin: 09/12/22 16:45 Dose: 400 mg Documented By: ERIKA Tramadol HCl (Tramadol Hcl 50 Mg Tablet) 50 mg PO Q4H PRN PRN Reason: Pain Stop: 10/12/22 13:08 Last Admin: 09/12/22 15:12 Dose: 50 mg Documented By: ERIKA Discontinued Medications Piperacillin Sod/Tazobactam Sod (Zosyn) 4.5 gm in 120 mls @ 240 mls/hr IV NOW ONE Stop: 09/12/22 08:09 Last Admin: 09/12/22 10:31 Dose: Not Given Documented By: ERIKA Morphine Sulfate (Morphine Sulfate 2 Mg/Ml Carp) 2 mg IV NOW STA Stop: 09/12/22 04:31 Last Admin: 09/12/22 04:47 Dose: 2 mg Documented By: DANISHA Morphine Sulfate (Morphine Sulfate 2 Mg/Ml Carp) 2 mg IV NOW STA Stop: 09/12/22 05:21 Last Admin: 09/12/22 05:40 Dose: 2 mg Documented By: EMMANUEL Ondansetron HCl (Ondansetron Inj 2 Mg/Ml 2 Ml Vial) 4 mg IV NOW STA Stop: 09/12/22 04:31 Last Admin: 09/12/22 04:47 Dose: 4 mg Documented By: DANISHA Medical Decision Making Differential Diagnosis Differential diagnosis includes strain/sprain, muscle spasm, disc herniation, f racture, subluxation, metastatic disease, cord compression, discitis, sciatica, cauda equina, conus medullaris syndrome, infection, epidural abscess, epidural hematoma, aortic disease, renal colic, UTI, pyelonephritis, gastrointestinal, pancreatitis, cholelithiasis, cholecystitis, hepatitis, [place], pneumonia, as well as other pathologies. Laboratory Data Attestation: I reviewed the patient's lab results. Result diagrams: 09/12/22 04:40 09/12/22 04:40 Lab Results 09/12/22 09/12/22 09/12/22 Range/Units 04:40 04:40 04:50 WBC 7.69 (4.8-10.8) K/ul RBC 3.98 (3.93-5.22) M/uL Hgb 12.1 (12.0-16.0) g/dl Hct 36.3 (34.1-44.9) % MCV 91.2 (80.0-100.0) fL MCH 30.4 (25.0-34.0) pg MCHC 33.3 (32.0-36.0) g/dL RDW Std Deviation 49.5 H (36.4-46.3) fL RDW Coeff of Daniela 15.3 H (11.5-14.5) % Plt Count 103 L (130-400) K/uL MPV 10.4 (9.4-12.3) fL Immature Gran % (Auto) 0.4 % Neut % (Auto) 69.5 % Lymph % (Auto) 21.5 % [place] % (Auto) 8.1 % Eos % (Auto) 0.1 % Baso % (Auto) 0.4 % Neut # (Auto) 5.35 (1.4-6.5) K/uL Lymph # (Auto) 1.65 (1.2-3.4) K/uL [place] # (Auto) 0.62 (0.24-0.82) K/uL Eos # (Auto) 0.01 (0-0.50) K/uL Baso # (Auto) 0.03 (0-0.2) K/uL Immature Gran # (Auto) 0.03 H (0.00-0.02) K/uL Platelet Estimate Decreased L (Normal) Sodium 142 (136-145) mmol/L Potassium 4.1 (3.5-5.1) mmol/L Chloride 110 H (98-107) mmol/L Carbon Dioxide 23 (21-32) mmol/L Anion Gap 9 (3-11) BUN 36 H (6-23) mg/dl Creatinine 1.32 H (0.6-1.2) mg/dl Est Cr Clr Drug Dosing 25.0 ml/min Est GFR ( Amer) 42.5 ml/min Est GFR (Non-Af Amer) 36.7 ml/min BUN/Creatinine Ratio 27.3 H (10-20) Glucose 119 H (70-99(Fasting)) mg/dl Calcium 10.5 H (8.5-10.1) mg/dl Total Bilirubin 1.0 (0.2-1.0) mg/dl AST 33 (13-39) U/L ALT 46 (7-52) U/L Alkaline Phosphatase 152 H (34-104) U/L Troponin I High Sens 21.8 H (0-14) pg/ml Total Protein 7.5 (6.0-8.3) gm/dl Albumin 4.3 (3.4-5.0) gm/dl Globulin 3.2 (2.5-4.0) gm/dl Albumin/Globulin Ratio 1.3 (0.9-2) Lipase 36 (11-82) U/L SARS-CoV-2, RNA, NAAT NEGATIVE (NEGATIVE) 09/12/22 Range/Units 08:59 WBC (4.8-10.8) K/ul RBC (3.93-5.22) M/uL Hgb (12.0-16.0) g/dl Hct (34.1-44.9) % MCV (80.0-100.0) fL MCH (25.0-34.0) pg MCHC (32.0-36.0) g/dL RDW Std Deviation (36.4-46.3) fL RDW Coeff of Daniela (11.5-14.5) % Plt Count (130-400) K/uL MPV (9.4-12.3) fL Immature Gran % (Auto) % Neut % (Auto) % Lymph % (Auto) % [place] % (Auto) % Eos % (Auto) % Baso % (Auto) % Neut # (Auto) (1.4-6.5) K/uL Lymph # (Auto) (1.2-3.4) K/uL [place] # (Auto) (0.24-0.82) K/uL Eos # (Auto) (0-0.50) K/uL Baso # (Auto) (0-0.2) K/uL Immature Gran # (Auto) (0.00-0.02) K/uL Platelet Estimate (Normal) Sodium (136-145) mmol/L Potassium (3.5-5.1) mmol/L Chloride (98-107) mmol/L Carbon Dioxide (21-32) mmol/L Anion Gap (3-11) BUN (6-23) mg/dl Creatinine (0.6-1.2) mg/dl Est Cr Clr Drug Dosing ml/min Est GFR ( Amer) ml/min Est GFR (Non-Af Amer) ml/min BUN/Creatinine Ratio (10-20) Glucose (70-99(Fasting)) mg/dl Calcium (8.5-10.1) mg/dl Total Bilirubin (0.2-1.0) mg/dl AST (13-39) U/L ALT (7-52) U/L Alkaline Phosphatase (34-104) U/L Troponin I High Sens 21.7 H (0-14) pg/ml Total Protein (6.0-8.3) gm/dl Albumin (3.4-5.0) gm/dl Globulin (2.5-4.0) gm/dl Albumin/Globulin Ratio (0.9-2) Lipase (11-82) U/L SARS-CoV-2, RNA, NAAT (NEGATIVE) Imaging Data Radiologist's Impression: Thoracic Spine CT 09/12/22 04:26 CT thoracic spine wo con CLINICAL HISTORY: back pain TECHNIQUE: Multidetector row helical CT of the thoracic spine was performed without administration of intravenous contrast. Coronal and sagittal r eformations were obtained. Automated dose lowering techniques and/or adjustment according to patient size were utilized for this exam. Comparison: Comparison is made to CT chest 11/08/2021 FINDINGS: Anterior wedge deformities at T6 and T10 are unchanged from prior exams. Multilevel degenerative changes are seen. Vertebral body alignment is within normal limits. Mediastinal lymph nodes are seen. Aortic atherosclerosis is noted. Biapical scarring is noted and there is bilateral atelectasis. IMPRESSION: No evidence of acute fracture is seen. Chronic compression deformities of thora cic vertebrae are noted. ACT 112: Negative or not required by law. Electronically signed by: Ayden Patterson M.D. 09/12/2022 10:47 AM Liver Ultrasound 09/12/22 07:40 ULTRASOUND RIGHT UPPER QUADRANT ABDOMEN CLINICAL HISTORY: Right upper quadrant abdominal pain. Cholelithiasis. Abnormal CT. COMPARISON STUDY: Abdominal CT dated 09/12/2022. TECHNIQUE: Real-time, grayscale, and color flow sonography of the right upper quadrant of the abdomen was performed. Images are reviewed in the transverse and longitudinal planes. FINDINGS: Liver: The liver is cirrhotic in morphology and heterogeneous in echotexture. There is nodularity of the hepatic surface contour. There is no intrahepatic biliary ductal dilatation. The main portal vein is patent. Gallbladder: The gallbladder is distended and contains shadowing calcified gallstones. The gallbladder wall is mildly thickened and edematous measuring up to 3 mm. There is trace pericholecystic fluid. A sonographic Pitts's sign could not be assessed as the patient received analgesia. The common bile duct measures up to 0.6 cm in diameter. Pancreas: Visualized portions of the pancreatic head and body are normal in appearance. The splenic vein is patent. Right kidney: Survey images of the right kidney demonstrate mild cortical atrophy. Echotexture is normal. There is no hydronephrosis. Ascites: There is trace perihepatic ascites. IMPRESSION: 1. Cirrhotic liver morphology and trace perihepatic ascites. 2. Cholelithiasis within a distended gallbladder. The gallbladder wall is mildly thickened and edematous and there is pericholecystic fluid. These findings are nonspecific given cirrhosis and ascites. A sonographic Pitts's sign could not be assessed. Findings are equivocal for acute cholecystitis which is not excluded. Nuclear hepatobiliary scan could be considered to assess for cystic duct obstruction. ACT 112: Negative or not required by law. Electronically signed by: Luis Peña M.D. 09/12/2022 9:01 AM MDM Narrative I examined the patient. An IV lock was placed and labs were drawn. Continuous lift team technician: Order was placed for continuous lift team technician. Patient was placed on the lift team technician. Patient was noted to be in normal sinus rhythm at an initial rate of 70 bpm. The patient was given morphine 2 mg IV and Zofran 4 mg IV with an additional morphine 2 mg IV with good improvement of her pain. Platelet count low at 103, but CBC otherwise essentially unremarkable. BUN 36, creatinine 1.32 with known history of chronic kidney disease. Glucose 119. Alk phos 152, but other LFTs normal. Lipase normal at 36. The patient had difficulty getting a urine sample while in the emergency department. COVID- negative. High-sensitivity troponin slightly elevated 21.8. EKG was interpreted by myself and Dr. Fox and showed normal sinus rhythm at [address] and T wave changes. Chest x-ray was reviewed myself and read by radiology as above and shows no acute cardiopulmonary etiology, but does show acute to subacute left posterior rib fractures which are new from previous. CT scan of the abdomen and pelvis without contrast, the lumbar spine, and the thoracic spine were reviewed by myself and read by radiology as above and show Cholelithiasis within a distended gallbladder. Mild gallbladder wall thickening and trace pericholecystic fluid are nonspecific and could be related to cirrhosis. Acute cholecystitis is not excluded. There are subacute-appearing left posterior rib fractures. These are new from 01/02/2022. There is a mild acute to subacute inferior endplate compression fracture of T11. This is also new from 01/02/2022. An inferior endplate compression fracture of T10 is unchanged from previous. There is no evidence of acute fracture or malalignment involving the lumbar spine. Cirrhosi s with trace perihepatic ascites and mild splenomegaly indicate portal hypertension. 3.5 x 3.9 cm infrarenal abdominal aortic aneurysm. Colonic diverticulosis without CT evidence of acute diverticulitis. The patient's exam is somewhat difficult because of her diffuse pain, but maximally tender to palpation in the epigastric and right upper quadrant of her abdomen as well as over the entire left side of the back and flank. The patient denies any recent fall, injury, or trauma to suggest new or acute rib fractures or known cause of the compression fracture. I had a meaningful discussion about this patient with Dr. Fox. They agree with my assessment and the treatment plan. She states that she got C. difficile from Augmentin in the past and that is why it is listed on her allergies, but it is not a true allergy. Zosyn 4.5 g IV was ordered given the concern for cholecystitis. Right upper quadrant ultrasound was ordered for further evaluation. Repeat troponin and EKG were also ordered. The results of these tests were still pending at the time of change of shift. A page was placed to surgery as well as the on-call hospitalist for possible admission for further evaluation and treatment. However, I still had not heard back from surgery or the hospitalist at shift change. Due to change of shift the patient's care was transferred to Sriram Bliss PA-C. Please refer to his dictation for further details. The patient's care was transferred in stable condition. Impression & Plan Cholelithiasis, Abdominal pain, RUQ, Epigastric abdominal pain, Back pain, Cirrhosis Discharge Plan Visit Data Chief Complaint: Back Injury/Pain ED Provider: Morgan Fox ED Midlevel Provider: Sriram Bliss Discharge Problem: Cholelithiasis, Abdominal pain, RUQ, Epigastric abdominal pain, Back pain, Cirrhosis Patient Disposition: Admitted As Inpatient Condition: Good Discharge Instructions Interventions: ED Discharge Assessment Last Done: 09/12/22 10:26
[2022-09-12] MEDS ORDERED: ONDANSETRON INJ 2 MG/ML 2 ML VIAL IV STA (04:30)
[2022-09-12] MEDS ORDERED: MoRPHine SULFATE 2 MG/ML CARP IV STA ×2 (04:30→05:20)
[2022-09-12 05:11] LABS: Albumin Globulin Ratio 1.3 (0.9-2); Albumin Level 4.3 gm/dl (3.4-5.0); BUN Creatinine Ratio 27.3 (10-20); Calcium 10.5 mg/dl (8.5-10.1); Est GFR (African American) 42.5 ml/min; Est GFR (Non-African American) 36.7 ml/min; Globulin 3.2 gm/dl (2.5-4.0); Potassium 4.1 mmol/L (3.5-5.1); Total Protein 7.5 gm/dl (6.0-8.3)
[2022-09-12 05:13] LABS: Troponin I High Sensitivity 21.8 pg/ml (0-14)
[2022-09-12 05:25] LABS: Basophils # (auto) 0.03 K/uL (0-0.2); Basophils % (auto) 0.4 %; Eosinophils # (auto) 0.01 K/uL (0-0.50); Eosinophils % (auto) 0.1 %; Hematocrit (blood only) 36.3 % (34.1-44.9); Hemoglobin 12.1 g/dl (12.0-16.0); Immature Granulocytes # (auto) 0.03 K/uL (0.00-0.02); Immature Granulocytes % (auto) 0.4 %; Lymphocytes # (auto) 1.65 K/uL (1.2-3.4); Lymphocytes % (auto) 21.5 %; Mean Corpuscular Hemoglobin 30.4 pg (25.0-34.0); Mean Corpuscular Hgb Conc 33.3 g/dL (32.0-36.0); Mean Corpuscular Volume 91.2 fL (80.0-100.0); Mean Platelet Volume 10.4 fL (9.4-12.3); Monocytes # (auto) 0.62 K/uL (0.24-0.82); Monocytes % (auto) 8.1 %; Neutrophils # (auto) 5.35 K/uL (1.4-6.5); Neutrophils % (auto) 69.5 %; Platelet Count 103 K/uL (130-400); Platelet Estimate Decreased (Normal); RDW Coefficient of Variation 15.3 % (11.5-14.5); RDW Standard Deviation 49.5 fL (36.4-46.3); Red Blood Count 3.98 M/uL (3.93-5.22); White Blood Count 7.69 K/ul (4.8-10.8)
--- NOTE | 2022-09-12 07:04 | CT Scan Report ---
CT SCAN OF THE ABDOMEN AND PELVIS WITHOUT IV CONTRAST; CT SCAN OF THE LUMBAR SPINE WITHOUT IV CONTRAS T CLINICAL HISTORY: Generalized abdominal pain. Low back pain. COMPARISON STUDY: Abdominal CT dated 01/02/2022. TECHNIQUE: CT scan of the abdomen and pelvis is performed from the lung bases to the proximal femora. Additionally, CT scan of the lumbar spine is performed from the lower thoracic spine to the sacrum. Images for both examinations are reviewed in the axial, sagittal, and coronal planes. IV contrast was not administered for this examination as per the referring clinician. Note that the examination was performed in suboptimal fashion without oral and IV contrast. The examination is also degraded by mot ion artifact. A dose lowering technique was utilized adhering to the principles of ALARA. CT DOSE: 738.03 mGy.cm FINDINGS: Lung bases: The heart is mildly enlarged and without pericardial effusion. The coronary arteries are densely calcified. There is a small hiatal hernia. The lung bases are clear noting bibasilar scarring /atelectasis. Liver: The unenhanced liver is cirrhotic in morphology and heterogeneous in attenuation. There is nod ularity of the hepatic surface contour. There is no intrahepatic biliary ductal dilatation. Gallbladder: There are numerous calcified gallstones, with stones seen in the region of the gallbladd er neck. The gallbladder is distended. The wall is mildly thickened and there is trace surrounding fl uid. Spleen: The spleen is mildly enlarged measuring 13.6 cm in length. Pancreas: The unenhanced pancreas is moderately atrophic and grossly unremarkable. Adrenal glands: Unremarkable. Kidneys: The unenhanced kidneys demonstrate cortical atrophy and are without hydronephrosis. There is a punctate nonobstructing calculus seen in the right. A 3.7 cm simple cyst is noted on the left. Abdominal vasculature: There is advanced atherosclerotic calcification of the abdominal aorta. An inf rarenal abdominal aortic aneurysm measures 3.5 x 3.9 cm (AP x transverse). A stent is noted in the hall perior mesenteric artery. Bowel: There is moderate to advanced colonic diverticulosis without CT evidence of acute diverticulit is. No bowel obstruction is seen. Kzyr-[id number]-nidotapp fecal retention is noted throughout the colon. The appendix is not visualized. Peritoneum: There is trace perihepatic ascites. No intraperitoneal free air is seen. There is a fat-c ontaining umbilical hernia. Lymphadenopathy: None. Pelvic viscera: The bladder is distended but otherwise normal in appearance. The uterus and adnexa ar e normal as visualized. There is a fat containing right groin hernia. Skeletal structures: The skeletal structures are osteopenic. See below for dedicated discussion of th e lumbar spine. No lytic or blastic lesions are seen. There are subacute-appearing left posterior 7th through 11th rib fractures. An inferior endplate compression deformity of T10 is unchanged from 01/02. There is an acute to subacute mild inferior endplate compression fracture of T11 which is new from previous. The bony pelvis and proximal femora appear intact. LUMBAR SPINE: Vertebral body height and alignment are maintained throughout the lumbar spine. There i s no evidence of fracture or malalignment. Anterior and lateral marginal osteophytes are seen through out. The transverse and spinous processes are intact. There is no evidence of spondylolysis. There is moderate to severe disc space narrowing at L4-L5 with associated endplate sclerosis. Mild disc space narrowing is seen at the remaining lumbar levels. There are posterior disc osteophyte complexes at a ll lumbar levels. There is no CT evidence of large disc herniation or high-grade central canal stenos is. Facet arthropathy is noted in the lower lumbar region. There is fatty atrophy of the paraspinous musculature. IMPRESSION: 1. Cholelithiasis within a distended gallbladder. Mild gallbladder wall thickening and trace perichol ecystic fluid are nonspecific and could be related to cirrhosis. Acute cholecystitis is not excluded. Clinical and laboratory correlation will be essential. Right upper quadrant ultrasound could be cons idered for further assessment. 2. There are subacute-appearing left posterior rib fractures. These are new from 01/02/2022. 3. There is a mild acute to subacute inferior endplate compression fracture of T11. This is also new from 01/02/2022. 4. An inferior endplate compression fracture of T10 is unchanged from previous. 5. There is no evidence of acute fracture or malalignment involving the lumbar spine. 6. Cirrhotic liver morphology. 7. Trace perihepatic ascites and mild splenomegaly indicate portal hypertension. 8. Colonic diverticulosis without CT evidence of acute diverticulitis. 9. There is a 3.5 x 3.9 cm infrarenal abdominal aortic aneurysm. 10. Additional findings as above. ACT 112: Negative or not required by law. Electronically signed by: Luis Peña M.D. 09/12/2022 7:03 AM
--- NOTE | 2022-09-12 07:06 | XRay Report ---
SINGLE VIEW CHEST CLINICAL HISTORY: Cough. Atypical chest pain. FINDINGS: 2 AP, portable, semierect chest radiographs compare to study dated 01/01/2022. The cardiomed iastinal silhouette is top normal for projection noting atherosclerotic calcification of the thoracic aorta. Chronic interstitial thickening is unchanged. There is bibasilar scarring/atelectasis. The tristen ngs and pleural spaces are otherwise clear. No pneumothorax is seen. The skeletal structures are oste openic. There are acute to subacute appearing left posterior rib fractures which are new from previou s. Arthritic change is seen in the shoulders. A vascular stent projects over the left upper chest. IMPRESSION: 1. No acute cardiopulmonary abnormality is identified. 2. There are acute to subacute left posterior rib fractures which are new from previous. Correlate fo r point tenderness. ACT 112: Negative or not required by law. Electronically signed by: Luis Peña M.D. 09/12/2022 7:04 AM
[2022-09-12] MEDS ORDERED: PIPERACILLIN/TAZOBACTAM 4.5 GM/120 ML BAG IV ONE (07:40)
--- NOTE | 2022-09-12 08:47 | Emergency Department Note ---
ED Visit Note 86-year-old female whose care was transferred to tx from Sammi Cruz PA-C at change of shift. At the time of transfer of care, an official ultrasound was ordered and pending for possible acute cholecystitis. Patient did have CT imaging showing evidence for cholelithiasis and some pericholecystic fluid. Review of labs showed a normal white count, LFTs and total bilirubin. She did have an elevated alkaline phosphatase. CT imaging also showed additional rib fractures and acute T11 compression fracture as well. Patient has significant c omorbidities, and a consult with the hospitalist service was initiated prior to transfer of care. I did discuss the case with the [facility] hospitalist service, who has agreed to admit the patient. I also preliminarily spoke with Julian Llamas PA-C with general surgery with CT findings, and indicated that I would advise him of ultrasound findings that would suggest acute cholecystitis. At the time of transfer of care, the patient was resting comfortably and had decent pain and nausea control. Ultrasound did show a distended gallbladder and gallstones, however acute cholecystitis could not be definitively diagnosed secondary to her ascites. I did discuss the case with the [facility] hospitalist service, who has agreed to admission. An order was placed for IV Zosyn. The patient has amoxicillin listed as an allergy, causing stomach upset. The patient also reports that she had C. difficile with prior antibiotic use. The nurse indicated that she would prefer not to have the IV antibiotics, and would prefer that a hospital service discuss this further with her son when he arrives this morning. Please see hospitalist and surgical dictations for further treatment and final disposition. The hospitalist service did order an MRCP. The [id number] did arrive, and indicated that she also would prefer to avoid antibiotics until the MRCP test results were completed. I did asked the patient's nurse to contact the hospitalist service of the family's wishes. DIAGNOSIS: 1. Cholelithiasis with distended gallbladder 2. Subacute left posterior rib fractures 3. T11 inferior endplate compression fracture . : Cholelithiasis Qualifiers: Cholelithiasis location: gallbladder Cholecystitis presence: with cholecystitis Cholecystitis acuity: acute Biliary obstruction: without biliary obstruction Qualified Code(s): K80.00 - Calculus of gallbladder with acute cholecystitis without obstruction Back pain Qualifiers: Back pain location: back pain in unspecified location Chronicity: unspecified Back pain laterality: unspecified Qualified Code(s): M54.9 - Dorsalgia, unspecified
--- NOTE | 2022-09-12 09:04 | Ultrasound Report ---
ULTRASOUND RIGHT UPPER QUADRANT ABDOMEN CLINICAL HISTORY: Right upper quadrant abdominal pain. Cholelithiasis. Abnormal CT. COMPARISON STUDY: Abdominal CT dated 09/12/2022. TECHNIQUE: Real-time, grayscale, and color flow sonography of the right upper quadrant of the abdomen was performed. Images are reviewed in the transverse and longitudinal planes. FINDINGS: Liver: The liver is cirrhotic in morphology and heterogeneous in echotexture. There is nodularity of the hepatic surface contour. There is no intrahepatic biliary ductal dilatation. The main portal vein is patent. Gallbladder: The gallbladder is distended and contains shadowing calcified gallstones. The gallbladde r wall is mildly thickened and edematous measuring up to 3 mm. There is trace pericholecystic fluid. A sonographic Pitts's sign could not be assessed as the patient received analgesia. The common bile duct measures up to 0.6 cm in diameter. Pancreas: Visualized portions of the pancreatic head and body are normal in appearance. The splenic v ein is patent. Right kidney: Survey images of the right kidney demonstrate mild cortical atrophy. Echotexture is nor mal. There is no hydronephrosis. Ascites: There is trace perihepatic ascites. IMPRESSION: 1. Cirrhotic liver morphology and trace perihepatic ascites. 2. Cholelithiasis within a distended gallbladder. The gallbladder wall is mildly thickened and edemat ous and there is pericholecystic fluid. These findings are nonspecific given cirrhosis and ascites. A sonographic Pitts's sign could not be assessed. Findings are equivocal for acute cholecystitis whic h is not excluded. Nuclear hepatobiliary scan could be considered to assess for cystic duct obstructi on. ACT 112: Negative or not required by law. Electronically signed by: Luis Peña M.D. 09/12/2022 9:01 AM
--- NOTE | 2022-09-12 09:48 | History & Physical Report ---
Date of Service September 12, 2022 Assessment & Plan (1) Back pain: Plan: Pt presents with acute on chronic back pain that has become intractable limiting ability to complete her ADLs at home. New rib fractures and T11 compression fracture on imaging - pt does not recall specific trauma or fall. Also noted to have elevated troponin on presentation (minimally) with a question of prior chest pain. - Admit to PCU and monitor - Repeat troponin in ED was stable - will repeat EKG prn with any chest discomfort - Pain control - PT/OT - lives alone so may need to consider short-term rehab pending evals - Consult ortho spine for additional recommendations - Fall precautions (2) Compression fracture of body of thoracic vertebra: Plan: See #1 - Outpatient DEXA scan ordered by PCP and pending - will need to f/u as outpatient. (3) Cholelithiasis: Plan: CT abd/pel with cholelithiasis and possible findings c/w acute cholecystitis. RUQ U/S also concerning for cholecystitis - Check HIDA scan - Consult general surgery (4) Cirrhosis: Plan: Last MELD was 11 - repeat labs in AM - Consult GI (5) Type 2 diabetes mellitus: Plan: Pt self-titrates insulin outpatient. Last A1c 06/23/22 was 10.6 - Insulin sliding scale, basal insulin - Repeat A1c in AM - Holding oral meds (6) Hypothyroid: Plan: - Continue levothyroxine (7) COPD (chronic obstructive pulmonary disease): Plan: Pt reports she is not using inhalers at present as she had possible thrush previously when on them. Plan Continue other home medications as appropriate - unclear if pt is consistently taking PPI/H2 alejo at home but will continue for now. Pt seen and reviewed with collaborating physician, Dr. Singh. Plan of care discussed and as outlined above. Code Status: Full Code DVT Prophylaxis: SubQ heparin Hiral Walker PA-C History of Present Illness Chief Complaint: Back pain Primary Care Provider: Lizzie Vaca MD This is an 86 y/o female with a PMH of PAD s/p stent L subclavian, SMA, left iliac and fempop bypass, HTN, CKD3, dyslipidemia, IDDM2, Graves s/p VELOZ, hypothyroidism, COPD, infrarenal AAA, and prior C. diff who presented to the ED early this morning with severe back pain that has failed outpatient management. Pt reports a history of back, which seems to flare up about once a year. She saw her PCP last week and was started on prednisone and baclofen but she does not think that this has helped. Pain starts in the left side of her back and radiates to the right side. She denies chest or abdominal pain to me but apparently did have some chest and upper abdominal pain several days ago. Tylenol minimally helpful for pain. She denies any falls. She reports that she "furniture walks" at home but she does have a wheelchair, which she uses when she goes out. She lives by herself. She denies palpitations or shortness of breath. She has been coughing, but it is unclear if this is any worse than her baseline. Cough is productive of clear to white mucus. She has been using Robitussin with relief. Appetite is poor at baseline. No N/V/D. No change in urination. No fevers. She has chills but reports that she gets cold easily. She self-titrates her insulin and is planning to decrease it soon because she is not eating as many fruits as during the summer. Currently using 50 units daily but thinks she needs to decrease to 40-45 units soon. Allergies Allergy/AdvReac Type Severity Reaction Status Date / Time vitamin E (d-alpha Allergy Intermediate ITCHY Unverified 01/01/22 16:17 tocopherol) RASH, HIVES--PER [facility] 09/21/21 ENCOUNTER amoxicillin AdvReac Intermediate STOMACH Unverified 01/01/22 16:17 UPSET--PER [facility] 09/21/21 ENCOUNTER clavulanic acid AdvReac Intermediate STOMACH Unverified 01/01/22 16:17 UPSET--PER [facility] 09/21/21 ENCOUNTER dulaglutide [From [facility]] AdvReac Vomiting Verified 09/12/22 08:47 Home Medications Medication Instructions Recorded Confirmed Type aspirin 81 mg tablet,delayed 81 mg PO QAM 04/10/19 09/12/22 History release (Kendra Low Dose Aspirin) atorvastatin 20 mg tablet 20 mg PO QAM 04/10/19 09/12/22 History clopidogrel 75 mg tablet 75 mg PO QAM 04/10/19 09/12/22 History famotidine 40 mg tablet 40 mg PO DAILYBB 03/29/21 09/12/22 History ferrous sulfate 325 mg (65 mg 325 mg PO QAM 01/01/22 09/12/22 History iron) tablet (FeroSul) gabapentin 300 mg capsule 300 mg PO HS 01/01/22 09/12/22 History insulin degludec 200 unit/mL (3 50 unit subcut DAILY 01/01/22 09/12/22 History mL) subcutaneous pen (Tresiba FlexTouch U-200 insulin) pantoprazole 40 mg tablet,delayed 40 mg PO DAILY 01/01/22 09/12/22 History release (Protonix) baclofen 10 mg tablet 10 mg PO HS PRN Pain 09/12/22 09/12/22 History empagliflozin 25 mg tablet 25 mg PO DAILY 09/12/22 09/12/22 History (Jardiance) furosemide 40 mg tablet 20 mg PO DAILY 09/12/22 09/12/22 History levothyroxine 100 mcg tablet 100 mcg PO QAM 09/12/22 09/12/22 History prednisone 20 mg tablet 40 mg PO DAILY 09/12/22 09/12/22 History Past Med/Surg History Medical History Anemia Aneurysm of infrarenal abdominal aorta Atrial fibrillation with rapid ventricular response Cholelithiasis Cirrhosis CKD (chronic kidney disease) stage 3, GFR 30-59 ml/min COPD (chronic obstructive pulmonary disease) Emphysema Fall GI bleed History of Graves' disease Hypothyroid Pneumonia Sepsis Sinus bradycardia Thrombocytopenia Type 2 diabetes mellitus Surgical History History of appendectomy History of intravascular stent placement Reported Left subclavian, superior mesenteric artery, L iliac, L fempop bypass - [facility] Family History Other Diabetes Hypertension Social History Smoking Status: Former smoker Hx Alcohol Use: Yes Alcohol Intake Frequency: Monthly or Less Alcohol Intake Frequency Comment: Holidays Hx Substance Use: No Preferred Language: Romansh Communication Ability: Impaired Shine Worker Required: No Beliefs That Will Affect Care: None marital status: / Current Living Situation: Alone Current Living Situation Comment: unable to determine How many Children do You have: 3 Other Information That Helps Us Care for You: No Feels Safe at Home: Yes Safety Concerns: Feels Safe At This Time Assistive Devices: Denture - Upper and Denture - Lower Review of Systems 2 Review of Systems: All systems reviewed & are unremarkable except as noted in HPI & below Constitutional: + chills and + fatigue; no fever Eyes: no diplopia Ear, Nose, Mouth, Throat: no nasal congestion and no sore throat Respiratory: + cough; no chest congestion and no dyspnea on exertion Cardiovascular: no chest pain, no palpitations, no syncope and no edema Gastrointestinal: as per Subjective / HPI Genitourinary: no dysuria and no hematuria Musculoskeletal: + back pain Integumentary: no rash and no yellowing of the skin Neurologic: no falls, no dizziness and no headache(s) Psychiatric: + anxiety Physical Exam Constitutional: no acute distress and + uncomfortable intermittently tearful during visit Eyes: + anicteric sclerae ENMT: external ear and nose normal, oropharynx normal Neck: trachea midline Respiratory: no respiratory distress and no labored breathing Auscultation: lungs clear to auscultation bilaterally; no rales, no rhonchi and no wheezes Cardiovascular: Rate/Rhythm: regular rate and regular rhythm Vessels: radial pulses present Extremities: no pedal edema Gastrointestinal (Abdomen): Inspection/Auscultation: normal bowel sounds; abdomen not distended Percussion/Palpation: abdomen soft; abdomen nontender Musculoskeletal: left paraspinal muscle tenderness, no spinous process tenderness Skin: no jaundice Neurologic: moves all extremities; no focal motor deficits Psychiatric: Orientation: oriented x 3 Affect: + tearful affect Results & Data Results & Data ([facility]) Vital Signs (Past 12 Hours) Vital Signs Temp Pulse Pulse Resp BP BP Pulse Ox 09/12/22 07:54 84 L 09/12/22 07:00 67 18 162/54 H 93 09/12/22 06:00 69 12 151/58 H 94 09/12/22 05:41 77 20 142/74 H 95 09/12/22 05:41 95 09/12/22 03:41 36.5 C 66 20 112/94 97 O2 Del Method O2 Flow Rate 09/12/22 07:54 Nasal Cannula 0 09/12/22 07:00 Room Air 09/12/22 06:00 Room Air 09/12/22 05:41 Room Air 09/12/22 05:41 Room Air 09/12/22 03:41 Room Air Laboratory Results Laboratory Results - last 24 hr 09/12/22 09/12/22 09/12/22 04:40 04:40 04:50 WBC 7.69 RBC 3.98 Hgb 12.1 Hct 36.3 MCV 91.2 MCH 30.4 MCHC 33.3 RDW Std Deviation 49.5 H RDW Coeff of Daniela 15.3 H Plt Count 103 L MPV 10.4 Immature Gran % (Auto) 0.4 Neut % (Auto) 69.5 Lymph % (Auto) 21.5 [place] % (Auto) 8.1 Eos % (Auto) 0.1 Baso % (Auto) 0.4 Neut # (Auto) 5.35 Lymph # (Auto) 1.65 [place] # (Auto) 0.62 Eos # (Auto) 0.01 Baso # (Auto) 0.03 Immature Gran # (Auto) 0.03 H Platelet Estimate Decreased L Sodium 142 Potassium 4.1 Chloride 110 H Carbon Dioxide 23 Anion Gap 9 BUN 36 H Creatinine 1.32 H Est Cr Clr Drug Dosing 25.0 Est GFR ( Amer) 42.5 Est GFR (Non-Af Amer) 36.7 BUN/Creatinine Ratio 27.3 H Glucose 119 H Calcium 10.5 H Total Bilirubin 1.0 AST 33 ALT 46 Alkaline Phosphatase 152 H Troponin I High Sens 21.8 H Total Protein 7.5 Albumin 4.3 Globulin 3.2 Albumin/Globulin Ratio 1.3 Lipase 36 SARS-CoV-2, RNA, NAAT NEGATIVE 09/12/22 08:59 WBC RBC Hgb Hct MCV MCH MCHC RDW Std Deviation RDW Coeff of Daniela Plt Count MPV Immature Gran % (Auto) Neut % (Auto) Lymph % (Auto) [place] % (Auto) Eos % (Auto) Baso % (Auto) Neut # (Auto) Lymph # (Auto) [place] # (Auto) Eos # (Auto) Baso # (Auto) Immature Gran # (Auto) Platelet Estimate Sodium Potassium Chloride Carbon Dioxide Anion Gap BUN Creatinine Est Cr Clr Drug Dosing Est GFR ( Amer) Est GFR (Non-Af Amer) BUN/Creatinine Ratio Glucose Calcium Total Bilirubin AST ALT Alkaline Phosphatase Troponin I High Sens 21.7 H Total Protein Albumin Globulin Albumin/Globulin Ratio Lipase SARS-CoV-2, RNA, NAAT Diagnostic Findings CT Abd/Pel 09/12/22 - IMPRESSION: 1. Cholelithiasis within a distended gallbladder. Mild gallbladder wall thickening and trace pericholecystic fluid are nonspecific and could be related to cirrhosis. Acute cholecystitis is not excluded. Clinical and laboratory correlation will be essential. Right upper quadrant ultrasound could be considered for further assesment. 2. There are subacute-appearing left posterior rib fractures. These are new from 01/02/2022. 3. There is a mild acute to subacute inferior endplate compression fracture of T11. This is also new from 01/02/2022. 4. An inferior endplate compression fracture of T10 is unchanged from previous. 5. There is no evidence of acute fracture or malalignment involving the lumbar spine. 6. Cirrhotic liver morphology. 7. Trace perihepatic ascites and mild splenomegaly indicate portal hypertension. 8. Colonic diverticulosis without CT evidence of acute diverticulitis. 9. There is a 3.5 x 3.9 cm infrarenal abdominal aortic aneurysm. 10. Additional findings as above. Medications Administered Discontinued Medications Morphine Sulfate (Morphine Sulfate 2 Mg/Ml Carp) 2 mg IV NOW STA Stop: 09/12/22 04:31 Last Admin: 09/12/22 04:47 Dose: 2 mg Documented By: DANISHA Morphine Sulfate (Morphine Sulfate 2 Mg/Ml Carp) 2 mg IV NOW STA Stop: 09/12/22 05:21 Last Admin: 09/12/22 05:40 Dose: 2 mg Documented By: Ondansetron HCl (Ondansetron Inj 2 Mg/Ml 2 Ml Vial) 4 mg IV NOW STA Stop: 09/12/22 04:31 Last Admin: 09/12/22 04:47 Dose: 4 mg Documented By: DANISHA Code Status & VTE Plan VTE Prophylaxis Plan VTE Prophylaxis will be ordered: Yes Supervising Physician Co-Signing Physician Notes 86-year-old diabetic female with peripheral vascular disease and liver cirrhosis presenting with severe back pain over the last couple of days. Currently by my evaluation she is mostly concerned with a severe cramp in her leg she describes as a charley horse. This is significantly limiting my ability to talk to her and examine her. She is very focused on her legs. Per [id number] the patient was up and walking around yesterday in her house until about 530p. The patient's son wanted to keep the patient moving because he felt her back pain will be worse with bedrest. She said she felt fine when she went to sleep last night but then woke up and was unable to move. She currently has issues moving around and appears to have more pain when she moves which is better when she still. Reports multiple charley horse episodes this morning, as well. She denies any nausea vomiting abdominal pain or other issues with her abdomen. She feels that her hiatal hernia is contributing to her abdomen looking protuberant. Outpatient record review reveals a PCP appointment on 09/07 where patient reported back pain for 1 week. At that time back pain was felt to be musculoskeletal in nature and stretching, warm compresses and topical pain reliever was recommended. Family called back 2 days later requesting a pain reliever and muscle relaxer and the primary care doctor ordered baclofen 10 mg nightly as needed spasms and prednisone 40 for 5 days. It is not clear if any of this has helped the patient. Work-up today reveals a normal CBC with a low platelet count that is chronic. Platelets are 103. There is no active bleeding. Chemistry panel reveals normal electrolytes and chronic kidney disease with a baseline creatinine of 1.32. Glucose is controlled. Calcium is mildly elevated at 10.5 and she has been noted to have high normal calciums over the last 8 months in outpatient record. Lipase is normal. Lumbar spine CT revealed subacute left posterior rib fractures that are new from December 2021 and a mild acute to subacute inferior endplate compression fracture of T11. Thoracic spine CT reveals chronic anterior wedge deformities of T6 and T10 that are unchanged from prior exams along with multilevel degenerative changes. An incidental finding of calcified gallstones within the region of the gallbladder neck with a distended gallbladder that was mildly thickened and try surrounding fluid prompted further work-up into this area. Her right upper quadrant ultrasound was performed revealing cirrhotic liver morphology and trace. Hepatic ascites. Findings were equivalent for acute cholecystitis and a HIDA scan was then performed which was normal. Initially general surgery was consulted however, in light of normal gallbladder function, no abdominal symptoms, no LFT elevations, there is no indication for surgical management of her gallbladder at this time. Attention was again refocused to her back. Ortho Spine has been consulted for guidance with management of these fractures, and pain is well controlled with tramadol at this time. PT and OT evaluations were ordered. The likely etiology of the fractures is osteoporosis. Patient notably is not on any therapy for osteoporosis but has been on something in the past per her reports. There is no current DEXA scan available in the system. Will continue with Tylenol and Tramadol while awaiting further eval from consultants. Regarding her mildly elevated calcium, this was recently addressed in the clinic and a PTH was performed which was mildly elevated at 106. 25- hydroxy vitamin D level is adequate at 32. Defer to PCP for continued hypocalcemic work-up. Plan to repeat calcium in a.m and make sure patient is well-hydrated. Patient lives alone at home and has high risk of falls with complications from these that are likely to occur. Appreciate case management assistance with transitioning her back home safely. DO Francisco (1) Back pain Back pain laterality: unspecified Back pain location: back pain in unspecified location Chronicity: unspecified Qualified Code(s): M54.9 - Dorsalgia, unspecified (2) Cholelithiasis Biliary obstruction: without biliary obstruction Cholecystitis acuity: acute Cholecystitis presence: with cholecystitis Cholelithiasis location: gallbladder Qualified Code(s): K80.00 - Calculus of gallbladder with acute cholecystitis without obstruction
--- NOTE | 2022-09-12 10:18 | Electrocardiogram Report ---
Test Reason : Blood Pressure : / mmHG Vent. Rate : 066 BPM Atrial Rate : 066 BPM P-R Int : 196 ms QRS Dur : 094 ms QT Int : 412 ms P-R-T Axes : 072 -09 103 degrees QTc Int : 431 ms Poor data quality, interpretation may be adversely affected Normal sinus rhythm Left atrial enlargement Nonspecific T wave abnormality Lateral leads Abnormal ECG When compared with ECG of 01-JAN-2022 12:32, MI interval has decreased Incomplete right bundle branch block is no longer Present Confirmed by Aurelio Blood ([id number]) on 09/12/2022 10:17:50 AM Referred By: REFERRED SELF Confirmed By:Aurelio Blood
--- NOTE | 2022-09-12 10:23 | Electrocardiogram Report ---
Test Reason : Blood Pressure : / mmHG Vent. Rate : 059 BPM Atrial Rate : 059 BPM P-R Int : 188 ms QRS Dur : 094 ms QT Int : 424 ms P-R-T Axes : 055 -29 108 degrees QTc Int : 419 ms Sinus bradycardia Chronic T-wave inversion in Lateral leads Abnormal ECG When compared with ECG of 12-SEP-2022 05:00, No significant change was found Confirmed by Aurelio Blood ([id number]) on 09/12/2022 10:22:48 AM Referred By: REFERRED SELF Confirmed By:Aurelio Blood
[2022-09-12] MEDS ORDERED: GLUCAGON FOR INJ 1 MG VIAL SQ PRN (10:29)
[2022-09-12] MEDS ORDERED: GLUCOSE 40% GEL 15 GM TUBE PO PRN (10:29)
[2022-09-12] MEDS ORDERED: GLUCOSE 10 TAB/TUBE PO PRN (10:29)
[2022-09-12] MEDS ORDERED: CARBOHYDRATES FOR HYPOGLYCEMIA PO PRN (10:29)
[2022-09-12] MEDS ORDERED: DEXTROSE 50% 50 ML SYRINGE IV PRN (10:29)
--- NOTE | 2022-09-12 10:50 | CT Scan Report ---
CT thoracic spine wo con CLINICAL HISTORY: back pain TECHNIQUE: Multidetector row helical CT of the thoracic spine was performed without administration of intravenous contrast. Coronal and sagittal reformations were obtained. Automated dose lowering techn iques and/or adjustment according to patient size were utilized for this exam. Comparison: Comparison is made to CT chest 11/08/2021 FINDINGS: Anterior wedge deformities at T6 and T10 are unchanged from prior exams. Multilevel degenerative solis ges are seen. Vertebral body alignment is within normal limits. Mediastinal lymph nodes are seen. Aor tic atherosclerosis is noted. Biapical scarring is noted and there is bilateral atelectasis. IMPRESSION: No evidence of acute fracture is seen. Chronic compression deformities of thoracic vertebrae are note d. ACT 112: Negative or not required by law. Electronically signed by: Ayden Patterson M.D. 09/12/2022 10:47 AM
[2022-09-12] MEDS: INSULIN ASPART PER UNIT SC SCH ×3 (11:46→20:52)
--- NOTE | 2022-09-12 12:24 | Nuclear Medicine Report ---
NUCLEAR MEDICINE HEPATOBILIARY SCAN CLINICAL HISTORY: Abnormal gallbladder on CT. COMPARISON: CT of the abdomen and pelvis September 12, 2022. TECHNIQUE: 5.4 mCi of technetium 99m Choletec IV was injected at 10:36 AM on September 12, 2022. Imme diately following injection, imaging of the abdomen was carried out for 60 minutes in the anterior pr ojection. FINDINGS: Hepatic uptake of radiotracer is prompt and homogeneous. Activity is identified within the gallbladder at 20 minutes. Common bile duct activity is noted at 25 minutes. Small bowel activity is noted at approximately 30 minutes. IMPRESSION: Normal hepatobiliary scan. No evidence for acute cholecystitis. ACT 112: Negative or not required by law. Electronically signed by: Phan Camarillo M.D. 09/12/2022 12:22 PM
--- NOTE | 2022-09-12 12:57 | Surgery Consultation ---
Date of Consultation September 12, 2022 Assessment & Plan (1) Cholelithiasis: Edematous gallbladder from cirrhosis. HIDA normal. Can have diet as william. New changes/compression of T11 compared to 12/2021. Supervising Physician Co-Signing Physician Notes Patient seen and examined, labs and imaging reviewed, agree with above. 86-year-old female with history of significant back pain presented with same. There is a history of compression fractures with some new fractures seen on her most recent CT. On her imaging she had a somewhat cirrhotic liver with some edema and ascites along with distended gallbladder with some gallstones. She denies any postprandial pain, has had gallstones for quite some time. On exam she is afebrile stable vitals. Abdomen soft, nontender, nondistended. CT scan personally viewed and interpreted by myself I do not feel this represents cholecystitis. HIDA scan was negative for cholecystitis. Advance diet, surgery will sign off. History of Present Illness Attending Physician: Surekha Singh, History of Present Illness 86 y/o female seen during previous admission in Nov 2021 for cholelithiasis, cirrhosis. Has been having some back pain that began in left shoulder now located in mid back and sometimes right side. No nausea or vomiting. Has good appetite, no food intolerances. Has been maintaining her weight around 135 pounds after previously being in the 160s. Allergies Allergy/AdvReac Type Severity Reaction Status Date / Time vitamin E (d-alpha Allergy Intermediate ITCHY Unverified 01/01/22 16:17 tocopherol) RASH, HIVES--PER [facility] 09/21/21 ENCOUNTER amoxicillin AdvReac Intermediate STOMACH Unverified 01/01/22 16:17 UPSET--PER [facility] 09/21/21 ENCOUNTER clavulanic acid AdvReac Intermediate STOMACH Unverified 01/01/22 16:17 UPSET--PER [facility] 09/21/21 ENCOUNTER dulaglutide [From [facility]] AdvReac Vomiting Verified 09/12/22 08:47 Home Medications Medication Instructions Recorded Confirmed Type aspirin 81 mg tablet,delayed 81 mg PO QAM 04/10/19 09/12/22 History release (Kendra Low Dose Aspirin) atorvastatin 20 mg tablet 20 mg PO QAM 04/10/19 09/12/22 History clopidogrel 75 mg tablet 75 mg PO QAM 04/10/19 09/12/22 History famotidine 40 mg tablet 40 mg PO DAILYBB 03/29/21 09/12/22 History ferrous sulfate 325 mg (65 mg 325 mg PO QAM 01/01/22 09/12/22 History iron) tablet (FeroSul) gabapentin 300 mg capsule 300 mg PO HS 01/01/22 09/12/22 History insulin degludec 200 unit/mL (3 50 unit subcut DAILY 01/01/22 09/12/22 History mL) subcutaneous pen (Tresiba FlexTouch U-200 insulin) pantoprazole 40 mg tablet,delayed 40 mg PO DAILY 01/01/22 09/12/22 History release (Protonix) baclofen 10 mg tablet 10 mg PO HS PRN Pain 09/12/22 09/12/22 History empagliflozin 25 mg tablet 25 mg PO DAILY 09/12/22 09/12/22 History (Jardiance) furosemide 40 mg tablet 20 mg PO DAILY 09/12/22 09/12/22 History levothyroxine 100 mcg tablet 100 mcg PO QAM 09/12/22 09/12/22 History prednisone 20 mg tablet 40 mg PO DAILY 09/12/22 09/12/22 History Patient History Medical History Anemia Aneurysm of infrarenal abdominal aorta Atrial fibrillation with rapid ventricular response Cholelithiasis Cirrhosis CKD (chronic kidney disease) stage 3, GFR 30-59 ml/min COPD (chronic obstructive pulmonary disease) Emphysema Fall GI bleed History of Graves' disease Hypothyroid Pneumonia Sepsis Sinus bradycardia Thrombocytopenia Type 2 diabetes mellitus Surgical History History of appendectomy History of intravascular stent placement Reported Left subclavian, superior mesenteric artery, L iliac, L fempop bypass - Dr Andrade [facility] Family History Other Diabetes Hypertension Social History Smoking Status: Former smoker Hx Alcohol Use: Yes Alcohol Intake Frequency: Monthly or Less Alcohol Intake F requency Comment: Holidays Hx Substance Use: No Preferred Language: Maltese Communication Ability: Impaired Section Weaver Required: No Beliefs That Will Affect Care: None marital status: / Current Living Situation: Alone Current Living Situation Comment: unable to determine How many Children do You have: 3 Other Information That Helps Us Care for You: No Feels Safe at Home: Yes Safety Concerns: Feels Safe At This Time Assistive Devices: Denture - Upper and Denture - Lower Review of Systems Constitutional: + weight loss; no fever, no chills, no malaise and no anorexia Gastrointestinal: no abdominal pain, no bloating, no nausea and no vomiting Physical Exam Constitutional: WD/WN, vitals as above Respiratory: normal respiratory effort Cardiovascular: Rate/Rhythm: regular rate Gastrointestinal (Abdomen): Inspection/Auscultation: abdomen not distended Percussion/Palpation: abdomen soft; abdomen nontender and no guarding Results & Data ([facility]) Vital Signs (Past 12 Hours) Vital Signs Temp Pulse Pulse Resp BP BP Pulse Ox 09/12/22 12:26 09/12/22 12:26 36.5 C 70 20 164/72 H 95 09/12/22 10:26 36.6 C 63 18 162/95 H 98 09/12/22 09:00 59 L 18 184/109 H 99 09/12/22 07:54 84 L 09/12/22 07:00 67 18 162/54 H 93 09/12/22 06:00 69 12 151/58 H 94 09/12/22 05:41 77 20 142/74 H 95 09/12/22 05:41 95 09/12/22 03:41 36.5 C 66 20 112/94 97 O2 Del Method O2 Flow Rate 09/12/22 12:26 Room Air 09/12/22 12:26 Room Air 09/12/22 10:26 Nasal Cannula 3 09/12/22 09:00 Room Air 09/12/22 07:54 Nasal Cannula 0 09/12/22 07:00 Room Air 09/12/22 06:00 Room Air 09/12/22 05:41 Room Air 09/12/22 05:41 Room Air 09/12/22 03:41 Room Air PG Care Time/CCT Total # of Minutes Spent Total Time Spent with Patient: Total time spent is greater than 50% in coordination of care (as documented) at patient's floor/unit and/or counseling patient: Coding Level of Care Code 74810 Initial Inpt Care Lvl 1 Diagnoses Cholelithiasis K80.00 Biliary obstruction: without biliary obstruction Cholecystitis acuity: acute Cholecystitis presence: with cholecystitis Cholelithiasis location: gallbladder (1) Cholelithiasis Biliary obstruction: without biliary obstruction Cholecystitis acuity: acute Cholecystitis presence: with cholecystitis Cholelithiasis location: gallbladder Qualified Code(s): K80.00 - Calculus of gallbladder with acute cholecystitis without obstruction
[2022-09-12] MEDS: traMADol HCL 50 MG TABLET PO PRN (15:12)
[2022-09-12] MEDS: MAGNESIUM OXIDE 400 MG TAB PO SCH (16:45)
[2022-09-12] MEDS: HEPARIN SOD 5,000 UNIT/0.5 ML VIAL SQ SCH (20:19)
[2022-09-12] MEDS: GABAPENTIN 300 MG CAP PO SCH (20:21)
[2022-09-12] MEDS ORDERED: LANTUS PER UNIT CHARGE SQ SCH (21:00)
[2022-09-13 03:27] LABS: Appearance Urine Cloudy (Clear); Bacteria Urine Automated 4+ (Negative); Bilirubin Urine Negative (Negative); Blood Urine 2+ (Negative); Cast Urine Automated 0 /lpf (0-5); Color Urine Yellow; Glucose Urine UA 2+ (Negative); Ketones Urine Negative (Negative); Leukocyte Esterase Urine 2+ (Negative); Nitrite Urine Positive (Negative); Protein Urine 1+ (Negative); Specific Gravity Urine 1.016 (1.000-1.030); Urobilinogen Urine Negative (Negative); WBC Urine Automated >30 /hpf (0-5)
[2022-09-13] MEDS: LEVOTHYROXINE SODIUM 100 MCG TABLET PO SCH (05:35)
[2022-09-13] MEDS: FAMOTIDINE 40 MG TABLET PO SCH (05:35)
[2022-09-13] MEDS: traMADol HCL 50 MG TABLET PO PRN ×2 (07:18→17:20)
[2022-09-13] MEDS: ATORVASTATIN 20 MG TAB PO SCH (08:12)
[2022-09-13] MEDS: CLOPIDOGREL BISULFATE 75 MG TAB PO SCH (08:13)
[2022-09-13] MEDS: FUROSEMIDE 20 MG TAB PO SCH (08:14)
--- NOTE | 2022-09-13 08:15 | Orthopedic Consultation ---
Date of Consultation September 13, 2022 Assessment & Plan (1) Compression fracture of body of thoracic vertebra: Unfortunately the patient cannot have an MRI of the thoracic spine secondary to metal in various places in her body including her eyes. This would be ideal to determine the acuity of her thoracic fracture. CAT scan does demonstrate evidence of compression fracture however I am unable to determine its acuity. At this time I recommend the initiation of physical therapy occupational therapy bed to chair as tolerated. I would not recommend any surgery at this point. History of Present Illness Reason for Consultation: Thoracic back pain Attending Physician: Amina Lopez MD History of Present Illness Is a very pleasant 86-year-old female that had an episode of severe thoracic back pain that does radiate to the left side. She denies any specific trauma fall or event. She does live at home alone. She is very active typically. This morning she has pain with rotation in bed. She denies any numbness or tingling into the lower extremities denies any upper or lower extremity weakness. She is comfortable at rest. Allergies Allergy/AdvReac Type Severity Reaction Status Date / Time vitamin E (d-alpha Allergy Intermediate ITCHY Unverified 01/01/22 16:17 tocopherol) RASH, HIVES--PER [facility] 09/21/21 ENCOUNTER amoxicillin AdvReac Intermediate STOMACH Unverified 01/01/22 16:17 UPSET--PER [facility] 09/21/21 ENCOUNTER clavulanic acid AdvReac Intermediate STOMACH Unverified 01/01/22 16:17 UPSET--PER [facility] 09/21/21 ENCOUNTER dulaglutide [From [facility]] AdvReac Vomiting Verified 09/12/22 08:47 Home Medications Medication Instructions Recorded Confirmed Type aspirin 81 mg tablet,delayed 81 mg PO QAM 04/10/19 09/12/22 History release (Kendra Low Dose Aspirin) atorvastatin 20 mg tablet 20 mg PO QAM 04/10/19 09/12/22 History clopidogrel 75 mg tablet 75 mg PO QAM 04/10/19 09/12/22 History famotidine 40 mg tablet 40 mg PO DAILYBB 03/29/21 09/12/22 History ferrous sulfate 325 mg (65 mg 325 mg PO QAM 01/01/22 09/12/22 History iron) tablet (FeroSul) gabapentin 300 mg capsule 300 mg PO HS 01/01/22 09/12/22 History insulin degludec 200 unit/mL (3 50 unit subcut DAILY 01/01/22 09/12/22 History mL) subcutaneous pen (Tresiba FlexTouch U-200 insulin) pantoprazole 40 mg tablet,delayed 40 mg PO DAILY 01/01/22 09/12/22 History release (Protonix) baclofen 10 mg tablet 10 mg PO HS PRN Pain 09/12/22 09/12/22 History empagliflozin 25 mg tablet 25 mg PO DAILY 09/12/22 09/12/22 History (Jardiance) furosemide 40 mg tablet 20 mg PO DAILY 09/12/22 09/12/22 History levothyroxine 100 mcg tablet 100 mcg PO QAM 09/12/22 09/12/22 History prednisone 20 mg tablet 40 mg PO DAILY 09/12/22 09/12/22 History Patient History Medical History Anemia Aneurysm of infrarenal abdominal aorta Atrial fibrillation with rapid ventricular response Cholelithiasis Cirrhosis CKD (chronic kidney disease) stage 3, GFR 30-59 ml/min COPD (chronic obstructive pulmonary disease) Emphysema Fall GI bleed History of Graves' disease Hypothyroid Pneumonia Sepsis Sinus bradycardia Thrombocytopenia Type 2 diabetes mellitus Surgical History History of appendectomy History of intravascular stent placement Reported Left subclavian, superior mesenteric artery, L iliac, L fempop bypass - Dr Andrade [facility] Family History Other Diabetes Hypertension Social History Smoking Status: Former smoker Hx Alcohol Use: Yes Alcohol Intake Frequency: Monthly or Less Alcohol Intake Frequency Comment: Holidays Hx Substance Use: No Preferred Language: Chinese Communication Ability: Impaired User Experience Lead Required: No Beliefs That Will Affect Care: None marital status: / Current Living Situation: Alone Current Living Situation Comment: unable to determine How many Children do You have: 3 Other Information That Helps Us Care for You: No Feels Safe at Home: Yes Safety Concerns: Feels Safe At This Time Assistive Devices: Denture - Upper and Denture - Lower Physical Exam Physical Exam: On exam she is alert and oriented. She is eccentric to testing lower extremities. Sensory is intact. Results & Data ([facility]) Vital Signs (Past 12 Hours) Vital Signs Temp Pulse Pulse Resp BP Pulse Ox O2 Del Method 09/13/22 07:48 Room Air 09/13/22 03:42 36.7 C 68 18 149/76 H 92 Room Air 09/12/22 22:13 64 09/12/22 23:33 36.8 C 67 20 114/70 91 Room Air
[2022-09-13] MEDS: HEPARIN SOD 5,000 UNIT/0.5 ML VIAL SQ SCH ×2 (08:16→20:53)
[2022-09-13] MEDS: PANTOprazole 40 MG TAB PO SCH (08:16)
[2022-09-13] MEDS: ASPIRIN 81 MG ECTAB PO SCH (08:16)
[2022-09-13 08:27] LABS: Prothrombin Time 10.9 Seconds (9.0-12.0)
[2022-09-13 08:33] LABS: Estimated Average Glucose 214 mg/dl; Hemoglobin A1C 9.1 % (4.5-5.6)
[2022-09-13 08:40] LABS: Albumin Level 3.6 gm/dl (3.4-5.0); BUN Creatinine Ratio 29.2 (10-20); Bilirubin Direct 0.1 mg/dl (0-0.2); Bilirubin,Total 0.9 mg/dl (0.2-1.0); Calcium 9.5 mg/dl (8.5-10.1); Creatinine Clr Calc Pharmacy 24.5 ml/min; Est GFR (African American) 40.7 ml/min; Est GFR (Non-African American) 35.1 ml/min; Potassium 4.8 mmol/L (3.5-5.1); Total Protein 6.5 gm/dl (6.0-8.3)
[2022-09-13] MEDS: INSULIN ASPART PER UNIT SC SCH ×4 (08:54→20:51)
[2022-09-13 08:56] LABS: Basophils # (auto) 0.02 K/uL (0-0.2); Basophils % (auto) 0.3 %; Eosinophils # (auto) 0.05 K/uL (0-0.50); Eosinophils % (auto) 0.8 %; Hematocrit (blood only) 36.6 % (34.1-44.9); Hemoglobin 11.6 g/dl (12.0-16.0); Immature Granulocytes # (auto) 0.01 K/uL (0.00-0.02); Immature Granulocytes % (auto) 0.2 %; Lymphocytes # (auto) 1.91 K/uL (1.2-3.4); Lymphocytes % (auto) 32.4 %; Mean Corpuscular Hemoglobin 30.4 pg (25.0-34.0); Mean Corpuscular Hgb Conc 31.7 g/dL (32.0-36.0); Mean Corpuscular Volume 96.1 fL (80.0-100.0); Mean Platelet Volume 10.8 fL (9.4-12.3); Monocytes % (auto) 8.5 %; Neutrophils % (auto) 57.8 %; Platelet Count 90 K/uL (130-400); RDW Coefficient of Variation 15.5 % (11.5-14.5); RDW Standard Deviation 54.6 fL (36.4-46.3); Red Blood Count 3.81 M/uL (3.93-5.22); White Blood Count 5.89 K/ul (4.8-10.8)
--- NOTE | 2022-09-13 10:08 | Gastrointestinal Consultation ---
Date of Consultation September 13, 2022 Assessment & Plan (1) Cirrhosis: Pt is a 86 yo female admitted w back pain, found to have new ribs and thoracic fractures. There was a concern for possible cholecystitis but HIDA negative. 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 MELD 9. - No new plans from GI standpoint for cirrhosis management - GI to sign off; pls recall prn Supervising Physician Co-Signing Physician Notes Attg add: Pt with cirrhosis admit for back pain noted to have GB wall thick, and GB neck stone incidentally on imaging. HIDA negative, LFT's unremarkable. Similar findings of GB distention and GB neck stone on prior imaging. Imaging findings regarding GB likely related to portal HTN. Recommendations as above. History of Present Illness Reason for Consultation: ? cholecystitis, cirrhosis. Requesting Physician: Dr. Amina Lopez Attending Physician: Dr. Sury Armijo History of Present Illness Pt is a 86 yo female with past medical history is of PAD status post left subclavian stent, SMA, left iliac and femoral-popliteal bypass, hypertension, CKD stage III, dyslipidemia, dizziness type II, Graves' disease, hypothyroidism, COPD, AAA, history of Cdiff who was admitted yesterday with severe back pain. She was found to have new rib fractures and thoracic compression fracture. Denies any falling or traumatic injury. There is also questionable cholecystiti s given findings of cholelithiasis on ultrasound and possible gallbladder distention. Her LFTs are normal. She was having mild abdominal pain but none currently. It was possible that her abdominal pain was referred from her back pain. HIDA scan was performed yesterday which ruled out cholecystitis. GI asked to see patient for history of cirrhosis. Patient's last outpatient visit was with myself last month. 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 She denies any chest pain, shortness of breath, abdominal pain, nausea or vomiting. Last bowel movement was about 2 days ago without any dark tarry stools or rectal bleeding. Allergies Allergy/AdvReac Type Severity Reaction Status Date / Time vitamin E (d-alpha Allergy Intermediate ITCHY Unverified 01/01/22 16:17 tocopherol) RASH, HIVES--PER [facility] 09/21/21 ENCOUNTER amoxicillin AdvReac Intermediate STOMACH Unverified 01/01/22 16:17 UPSET--PER [facility] 09/21/21 ENCOUNTER clavulanic acid AdvReac Intermediate STOMACH Unverified 01/01/22 16:17 UPSET--PER [facility] 09/21/21 ENCOUNTER dulaglutide [From [facility]] AdvReac Vomiting Verified 09/12/22 08:47 Home Medications Medication Instructions Recorded Confirmed Type aspirin 81 mg tablet,delayed 81 mg PO QAM 04/10/19 09/12/22 History release (Kendra Low Dose Aspirin) atorvastatin 20 mg tablet 20 mg PO QAM 04/10/19 09/12/22 History clopidogrel 75 mg tablet 75 mg PO QAM 04/10/19 09/12/22 History famotidine 40 mg tablet 40 mg PO DAILYBB 03/29/21 09/12/22 History ferrous sulfate 325 mg (65 mg 325 mg PO QAM 01/01/22 09/12/22 History iron) tablet (FeroSul) gabapentin 300 mg capsule 300 mg PO HS 01/01/22 09/12/22 History insulin degludec 200 unit/mL (3 50 unit subcut DAILY 01/01/22 09/12/22 History mL) subcutaneous pen (Tresiba FlexTouch U-200 insulin) pantoprazole 40 mg tablet,delayed 40 mg PO DAILY 01/01/22 09/12/22 History release (Protonix) baclofen 10 mg tablet 10 mg PO HS PRN Pain 09/12/22 09/12/22 History empagliflozin 25 mg tablet 25 mg PO DAILY 09/12/22 09/12/22 History (Jardiance) furosemide 40 mg tablet 20 mg PO DAILY 09/12/22 09/12/22 History levothyroxine 100 mcg tablet 100 mcg PO QAM 09/12/22 09/12/22 History prednisone 20 mg tablet 40 mg PO DAILY 09/12/22 09/12/22 History Patient History Medical History Anemia Aneurysm of infrarenal abdominal aorta Atrial fibrillation with rapid ventricular response Cholelithiasis Cirrhosis CKD (chronic kidney disease) stage 3, GFR 30-59 ml/min COPD (chronic obstructive pulmonary disease) Emphysema Fall GI bleed History of Graves' disease Hypothyroid Pneumonia Sepsis Sinus bradycardia Thrombocytopenia Type 2 diabetes mellitus Surgical History History of appendectomy History of intravascular stent placement Reported Left subclavian, superior mesenteric artery, L iliac, L fempop bypass - [facility] Andrade [facility] Family History Other Diabetes Hypertension Social History Smoking Status: Former smoker Hx Alcohol Use: Yes Alcohol Intake Frequency: Monthly or Less Alcohol Intake Frequency Comment: Holidays Hx Substance Use: No Preferred Language: Chadian Communication Ability: Effective Automotive Artist Required: No Beliefs That Will Affect Care: None marital status: Current Living Situation: Alone Current Living Situation Comment: unable to determine How many Children do You have: 3 Other Information That Helps Us Care for You: No Feels Safe at Home: Yes Safety Concerns: Feels Safe At This Time Assistive Devices: Walker Review of Systems Review of Systems: All systems reviewed & are unremarkable except as noted in HPI & below Physical Exam Constitutional: WD/WN, vitals as above well groomed, cooperative and comfortable Eyes: PERRL, conjunctivae normal, anicteric sclerae ENMT: external ear and nose normal, oropharynx normal Respiratory: normal respiratory effort, lungs clear to auscultation Cardiovascular: RRR, no murmur, no edema Gastrointestinal (Abdomen): normal bowel sounds, soft, nontender, no hepatosplenomegaly Skin: no rashes, warm and dry no jaundice Neurologic: Motor/Sensory: no asterixis Psychiatric: A+Ox3, euthymic affect Lymphatic: no lymphedema Results & Data ([facility]) Vital Signs (Past 12 Hours) Vital Signs Temp Pulse Pulse Resp BP BP Pulse Ox 09/13/22 08:00 36.9 C 66 16 131/63 98 09/13/22 07:48 09/13/22 03:42 36.7 C 68 18 149/76 H 92 09/12/22 22:13 64 09/12/22 23:33 36.8 C 67 20 114/70 91 O2 Del Method 09/13/22 08:00 09/13/22 07:48 Room Air 09/13/22 03:42 Room Air 09/12/22 22:13 09/12/22 23:33 Room Air
[2022-09-13] MEDS: NYSTATIN SUSP 500,000 U/5 ML UDC PO SCH ×3 (12:17→20:53)
[2022-09-13] MEDS ORDERED: NYSTATIN 500,000 UNIT TAB PO SCH (13:00)
[2022-09-13] MEDS: MAGNESIUM OXIDE 400 MG TAB PO SCH (17:08)
[2022-09-13] MEDS: GABAPENTIN 300 MG CAP PO SCH (20:54)
--- NOTE | 2022-09-13 23:41 | Hospitalist Progress Note ---
Date of Service September 13, 2022 Assessment & Plan (1) Back pain: (2) Compression fracture of body of thoracic vertebra: Plan: Pt presents with acute on chronic back pain that has become intractable limiting ability to complete her ADLs at home. CT lumbar spine showed subacute-appearing left posterior rib fractures. These are new from 01/02/2022.There is a mild acute to subacute inferior endplate compression fracture of T11. This is also new from 01/02/2022. CT thoracic spine showed no evidence of acute fracture is seen. Chronic compression deformities of thoracic vertebrae are noted. Ortho on board Unable to get a MRI of the thoracic spine secondary to metal in various places in her body including her eyes. No surgical intervention as per ortho continue pain control PT/OT eval Fall precaution (3) Cholelithiasis: Plan: Denies any abdominal pain CT abd/pel with cholelithiasis and possible findings c/w acute cholecystitis. Liver u/s showed cholelithiasis within a distended gallbladder. The gallbladder wall is mildly thickened and edematous and there is pericholecystic fluid HIDA scan showed normal hepatobiliary scan. No evidence for acute cholecystitis. Surgery on board and does not convince this is cholecystitis since pt has no pain postprandial Tolerated diet Continue monitor Abnormal UA UA positive for Nitrite, Leukocytes and bacteria Denies any urinary symptoms Urine cx pending If she spikes any fever or cx grew bacteria, poli start on abx to treat UTI Continue monitor (4) Cirrhosis: Plan: Liver u/s showed Cirrhotic liver morphology and trace perihepatic ascites. CT showed cirrhotic liver morphology. MELD score 9 No new plans from GI standpoint for cirrhosis management (5) Type 2 diabetes mellitus: Plan: Most recent hemoglobin A1c 9.1 on 09/13 Continue insulin sliding scale, basal insulin Continue to hold oral diabetic med Continue monitor blood sugar (6) Hypothyroid: Plan: Continue levothyroxine (7) COPD (chronic obstructive pulmonary disease): Plan: Pt reports she is not using inhalers at present as she had possible thrush previously when on them. Oral Thrush started on diflucan continue monitor Plan Code Status: Full Code DVT Prophylaxis: SubQ heparin Admission and Anticipated Discharge Date Admission Date: September 12, 2022 Subjective Pt was seen and examined for follow up of back pain Sitting n chair with no acute distress watching TV Pt said that she feels alot better today She said that she walked back and forth to the bathroom with physical therapy Denies any chest pain, palpitation, dizziness, shortness of breath. Review of Systems Review of Systems: All systems reviewed & are unremarkable except as noted in Subjective Physical Exam Physical Exam: General- No acute distress Head- atraumatic Eyes- PERRL, EOMI, ENT- oropharynx clear Neck- supple, no JVD Lungs- clear to auscultation Heart- regular rhythm; no murmur Abdomen- normal bowel sounds, soft, nontender Extremities- no calf tenderness Neuro- alert, oriented x 3; PERRL, EOMI; no facial palsy; no dysarthria Skin- warm & dry Results & Data Results & Data ([facility]) Vital Signs (Past 12 Hours) Vital Signs Temp Pulse Pulse Resp BP Pulse Ox O2 Del Method 09/13/22 22:08 65 09/13/22 22:57 36.7 C 74 18 146/70 H 90 Room Air 09/13/22 20:00 Room Air 09/13/22 19:07 36.6 C 62 18 145/68 H 90 Room Air 09/13/22 16:30 36.7 C 60 18 109/64 97 09/13/22 16:27 69 09/13/22 11:58 36.8 C 78 18 128/65 97 (1) Back pain Back pain laterality: unspecified Back pain location: back pain in unspecified location Chronicity: unspecified Qualified Code(s): M54.9 - Dorsalgia, unspecified (2) Cholelithiasis Biliary obstruction: without biliary obstruction Cholecystitis acuity: acute Cholecystitis presence: with cholecystitis Cholelithiasis location: gallbladder Qualified Code(s): K80.00 - Calculus of gallbladder with acute cholecystitis without obstruction
[2022-09-14] MEDS: FAMOTIDINE 40 MG TABLET PO SCH (05:34)
[2022-09-14] MEDS: LEVOTHYROXINE SODIUM 100 MCG TABLET PO SCH (05:34)
[2022-09-14 07:58] LABS: Hematocrit (blood only) 34.7 % (34.1-44.9); Hemoglobin 11.2 g/dl (12.0-16.0); Mean Platelet Volume 10.5 fL (9.4-12.3); Platelet Count 72 K/uL (130-400); White Blood Count 4.45 K/ul (4.8-10.8)
[2022-09-14] MEDS: CLOPIDOGREL BISULFATE 75 MG TAB PO SCH (08:01)
[2022-09-14] MEDS: FUROSEMIDE 20 MG TAB PO SCH (08:01)
[2022-09-14] MEDS: ATORVASTATIN 20 MG TAB PO SCH (08:01)
[2022-09-14] MEDS: ASPIRIN 81 MG ECTAB PO SCH (08:01)
[2022-09-14] MEDS: HEPARIN SOD 5,000 UNIT/0.5 ML VIAL SQ SCH ×2 (08:02→21:14)
[2022-09-14] MEDS: PANTOprazole 40 MG TAB PO SCH (08:02)
[2022-09-14] MEDS: NYSTATIN SUSP 500,000 U/5 ML UDC PO SCH ×4 (08:02→21:13)
[2022-09-14] MEDS: INSULIN ASPART PER UNIT SC SCH ×4 (08:10→21:04)
[2022-09-14 08:16] LABS: BUN Creatinine Ratio 33.1 (10-20); Calcium 9.7 mg/dl (8.5-10.1); Creatinine Clr Calc Pharmacy 24.2 ml/min; Est GFR (Non-African American) 35.4 ml/min; Mean Corpuscular Hemoglobin 30.5 pg (25.0-34.0); Mean Corpuscular Hgb Conc 32.3 g/dL (32.0-36.0); Mean Corpuscular Volume 94.6 fL (80.0-100.0); Potassium 4.6 mmol/L (3.5-5.1); Red Blood Count 3.67 M/uL (3.93-5.22)
[2022-09-14] MEDS ORDERED: cefTRIAXone SODIUM 1,000 MG in DEXTROSE 5% 50 ML IV SCH (09:15)
--- NOTE | 2022-09-14 10:10 | Hospitalist Progress Note ---
Date of Service September 14, 2022 Assessment & Plan (1) Back pain: (2) Compression fracture of body of thoracic vertebra: Plan: Pt presents with acute on chronic back pain that has become intractable limiting ability to complete her ADLs at home. CT lumbar spine showed subacute-appearing left posterior rib fractures. These are new from 01/02/2022.There is a mild acute to subacute inferior endplate compression fracture of T11. This is also new from 01/02/2022. CT thoracic spine showed no evidence of acute fracture is seen. Chronic compression deformities of thoracic vertebrae are noted. Ortho -spine consulted Unable to get a MRI of the thoracic spine secondary to metal in various places in her body including her eyes. No surgical intervention as per ortho continue pain control PT/OT eval Fall precaution (3) Cholelithiasis: Plan: Denies any abdominal pain CT abd/pel with cholelithiasis and possible findings c/w acute cholecystitis. Liver u/s showed cholelithiasis within a distended gallbladder. The gallbladder wall is mildly thickened and edematous and there is pericholecystic fluid HIDA scan showed normal hepatobiliary scan. No evidence for acute cholecystitis. Surgery on board and not convinced this is cholecystitis since pt has no pain postprandial Tolerated diet Continue monitor Abnormal UA UA positive for Nitrite, Leukocytes and bacteria Ucultx (09/13) positive Denies any urinary symptoms Patient's UA and urine culture from 09/13 concerning for UTI. Discussed this with the patient and her daughter. They are very concerned and they do not want to start any antibiotics, as patient has history of C. difficile. Decided to repeat her UA. Repeat UA today without bacteria or nitrites. Discussed in detail with pt and her daughter that they will need to follow-up on final culture and discuss further with PCP. They both are adamant about not starting any antibiotics at this time. Also discussed option of starting p.o. vancomycin prophylactically. Patient also denies any dysuria. (4) Cirrhosis: Plan: Liver u/s showed Cirrhotic liver morphology and trace perihepatic ascites. CT showed cirrhotic liver morphology. MELD score 9 No new plans from GI standpoint for cirrhosis management (5) Type 2 diabetes mellitus: Plan: Most recent hemoglobin A1c 9.1 on 09/13 Continue insulin sliding scale, basal insulin Continue to hold oral diabetic med Continue monitor blood sugar (6) Hypothyroid: Plan: Continue levothyroxine (7) COPD (chronic obstructive pulmonary disease): Plan: Pt reports she is not using inhalers at present as she had possible thrush previously when on them. Oral Thrush started on diflucan continue monitor Plan Code Status: Full Code DVT Prophylaxis: SubQ heparin Admission and Anticipated Discharge Date Admission Date: September 12, 2022 Subjective Pt was seen and examined for follow up of back pain Sitting in chair in no acute distress watching TV She walked back and forth to the bathroom with physical therapy , per PT ok to DC home w/ HH Denies any fever, chills, chest pain, palpitation, dizziness, shortness of breath. Denies any suprapubic pain or dysuria. Patient's UA and urine culture from 09/13 concerning for UTI. Discussed this with the patient and her daughter. They are very concerned and they do not want to start any antibiotics, as patient has history of C. difficile. Decided to repeat her UA. Repeat UA today without bacteria or nitrites. Discussed in detail with pt and her daughter that they will need to follow-up on final culture and discuss further with PCP. They both are adamant about not starting any antibiotics at this time. Also discussed option of starting p.o. vancomycin prophylactically. Patient also denies any dysuria. Review of Systems Review of Systems: All systems reviewed & are unremarkable except as noted in Subjective Physical Exam Physical Exam: General- elderly F , in NAD Head- at raumatic Eyes- PER RL, EOMI, ENT- nirav pharynx clear Neck - supple, no JVD L ungs- clear to aus cultation Heart- r egular rhythm; no murmur Abdomen- no rmal bowel sounds, soft, nontender E xtremities- no ca lf tenderness Neur o- alert, oriented x 3; PERRL, EOMI; no facial palsy; no dysarthria Skin - warm & dry Results & Data Results & Data ([facility]) Vital Signs (Past 12 Hours) Vital Signs Temp Pulse Resp BP Pulse Ox O2 Del Method 09/14/22 08:20 Room Air 09/14/22 07:58 36.5 C 61 17 128/64 90 Room Air 09/14/22 03:10 36.7 C 65 16 155/62 H 90 Room Air 09/13/22 22:57 36.7 C 74 18 146/70 H 90 Room Air Laboratory Results 09/14/22 09/14/22 09/14/22 Range/Units 07:40 07:40 07:03 WBC 4.45 L (4.8-10.8) K/ul RBC 3.67 L (3.93-5.22) M/uL Hgb 11.2 L (12.0-16.0) g/dl Hct 34.7 (34.1-44.9) % MCV 94.6 (80.0-100.0) fL MCH 30.5 (25.0-34.0) pg MCHC 32.3 (32.0-36.0) g/dL RDW Std Deviation 52.0 H (36.4-46.3) fL RDW Coeff of Daniela 15.0 H (11.5-14.5) % Plt Count 72 L (130-400) K/uL MPV 10.5 (9.4-12.3) fL Sodium 136 (136-145) mmol/L Potassium 4.6 (3.5-5.1) mmol/L Chloride 104 (98-107) mmol/L Carbon Dioxide 27 (21-32) mmol/L Anion Gap 5 (3-11) BUN 45 H (6-23) mg/dl Creatinine 1.36 H (0.6-1.2) mg/dl Est Cr Clr Drug Dosing 24.2 ml/min Est GFR ( Amer) 41.0 ml/min Est GFR (Non-Af Amer) 35.4 ml/min BUN/Creatinine Ratio 33.1 H (10-20) Glucose 92 (70-99(Fasting)) mg/dl POC Glucose 88 (70-99) mg/dl Calcium 9.7 (8.5-10.1) mg/dl 09/13/22 09/13/22 09/13/22 Range/Units 19:51 16:27 11:27 WBC (4.8-10.8) K/ul RBC (3.93-5.22) M/uL Hgb (12.0-16.0) g/dl Hct (34.1-44.9) % MCV (80.0-100.0) fL MCH (25.0-34.0) pg MCHC (32.0-36.0) g/dL RDW Std Deviation (36.4-46.3) fL RDW Coeff of Daniela (11.5-14.5) % Plt Count (130-400) K/uL MPV (9.4-12.3) fL Sodium (136-145) mmol/L Potassium (3.5-5.1) mmol/L Chloride (98-107) mmol/L Carbon Dioxide (21-32) mmol/L Anion Gap (3-11) BUN (6-23) mg/dl Creatinine (0.6-1.2) mg/dl Est Cr Clr Drug Dosing ml/min Est GFR ( Amer) ml/min Est GFR (Non-Af Amer) ml/min BUN/Creatinine Ratio (10-20) Glucose (70-99(Fasting)) mg/dl POC Glucose 188 H 115 H 144 H (70-99) mg/dl Calcium (8.5-10.1) mg/dl Medications Administered Current Inpatient Medications Aspirin (Aspirin 81 Mg Ectab) [facility] Stop: 10/13/22 08:59 Last Admin: 09/14/22 08:01 Dose: 81 mg Atorvastatin Calcium (Atorvastatin 20 Mg Tab) 20 mg [facility] [place] Stop: 10/13/22 08:59 Last Admin: 09/14/22 08:01 Dose: 20 mg Clopidogrel Bisulfate (Clopidogrel Bisulfate 75 Mg Tab) 75 mg [facility] [place] Stop: 10/13/22 08:59 Last Admin: 09/14/22 08:01 Dose: 75 mg Dextrose (Dextrose 50% 50 Ml Syringe) 25 - 50 ml IV UD PRN; Protocol PRN Reason: Hypoglycemia Protocol Stop: 10/12/22 10:28 Famotidine (Famotidine 40 Mg Tablet) 40 mg PO DAILYBB AAKASH Stop: 10/13/22 06:29 Last Admin: 09/14/22 05:34 Dose: 40 mg Furosemide (Furosemide 20 Mg Tab) 20 mg PO DAILY AAKASH Stop: 10/13/22 08:59 Last Admin: 09/14/22 08:01 Dose: 20 mg Gabapentin (Gabapentin 300 Mg Cap) 300 mg PO HS AAKASH Stop: 10/12/22 20:59 Last Admin: 09/13/22 20:54 Dose: 300 mg Glucagon (Glucagon For Inj 1 Mg Vial) 1 mg SQ UD PRN; Protocol PRN Reason: Hypoglycemia Protocol Stop: 10/12/22 10:28 Glucose (Glucose 40% Gel 15 Gm Tube) 15 - 30 gm PO UD PRN; Protocol PRN Reason: Hypoglycemia Protocol Stop: 10/12/22 10:28 Glucose (Glucose 10 Tab/Tube) 4 - 8 tab PO UD PRN; Protocol PRN Reason: Hypoglycemia Treatment Stop: 10/12/22 10:28 Heparin Sodium (Porcine) (Heparin Sod 5,000 Unit/0.5 Ml Vial) 5,000 units SQ Q12 AAKASH Stop: 10/12/22 20:59 Last Admin: 09/14/22 08:02 Dose: 5,000 units Ceftriaxone Sodium 1,000 mg/ (Dextrose) 60 mls @ 100 mls/hr IV Q24H AAKASH; Protocol Stop: 09/19/22 09:14 Last Infusion: 09/14/22 09:36 Dose: 0 mls/hr Insulin Aspart (Insulin Aspart Per Unit) 0 units SC ACHS AAKASH Stop: 10/12/22 11:29 Last Admin: 09/14/22 08:10 Dose: 2 units Insulin Glargine (Lantus Per Unit Charge) 5 units SQ BID AAKASH Stop: 10/12/22 20:59 Last Admin: 09/12/22 20:49 Dose: 5 units Levothyroxine Sodium (Levothyroxine Sodium 100 Mcg Tablet) 100 mcg PO DAILYBB [facility] Stop: 10/13/22 06:29 Last Admin: 09/14/22 05:34 Dose: 100 mcg Magnesium Oxide (Magnesium Oxide 400 Mg Tab) 400 mg PO Q24H AAKASH Stop: 10/12/22 15:14 Last Admin: 09/13/22 17:08 Dose: 400 mg Miscellaneous (Carbohydrates For Hypoglycemia ) 15 - 30 gm PO UD PRN PRN Reason: Hypoglycemia Protocol Stop: 10/12/22 10:28 Last Admin: 09/13/22 07:30 Dose: 15 gm Nystatin (Nystatin Susp 500,000 U/5 Ml Udc) 5 ml PO QID AAKASH Stop: 09/23/22 12:59 Last Admin: 09/14/22 08:02 Dose: 5 ml Pantoprazole Sodium (Pantoprazole 40 Mg Tab) 40 mg PO DAILY AAKASH Stop: 10/13/22 08:59 Last Admin: 09/14/22 08:02 Dose: 40 mg Raspberry (Raspberry Syrup 5 Ml Udp) 5 ml PO Q6 AAKASH Stop: 09/24/22 11:59 Tramadol HCl (Tramadol Hcl 50 Mg Tablet) 50 mg PO Q4H PRN PRN Reason: Pain Stop: 10/12/22 13:08 Last Admin: 09/13/22 17:20 Dose: 50 mg Vancomycin HCl (Vancomycin Hcl 125 Mg/2.5ml Soln) 125 mg PO Q6 AAKASH Stop: 09/24/22 11:59 (1) Back pain Back pain laterality: unspecified Back pain location: back pain in unspecified location Chronicity: unspecified Qualified Code(s): M54.9 - Dorsalgia, unspecified (2) Cholelithiasis Biliary obstruction: without biliary obstruction Cholecystitis acuity: acute Cholecystitis presence: with cholecystitis Cholelithiasis location: gallbladder Qualified Code(s): K80.00 - Calculus of gallbladder with acute cholecystitis without obstruction
[2022-09-14] MEDS ORDERED: VANCOMYCIN HCL 125 MG/2.5ML SOLN PO SCH (11:00)
[2022-09-14 15:26] LABS: Appearance Urine Turbid (Clear); Bacteria Urine Automated Negative (Negative); Bilirubin Urine Negative (Negative); Blood Urine 2+ (Negative); Color Urine Yellow; Glucose Urine UA 2+ (Negative); Ketones Urine Negative (Negative); Leukocyte Esterase Urine 3+ (Negative); Nitrite Urine Negative (Negative); Protein Urine Negative (Negative); RBC Urine Automated 0-4 /hpf (0-4); Specific Gravity Urine 1.007 (1.000-1.030); Urobilinogen Urine Negative (Negative); WBC Urine Automated >30 /hpf (0-5)
[2022-09-14] MEDS: MAGNESIUM OXIDE 400 MG TAB PO SCH (16:42)
[2022-09-14] MEDS: RASPBERRY SYRUP 5 ML UDP PO SCH ×2 (18:13→21:05)
[2022-09-14] MEDS: traMADol HCL 50 MG TABLET PO PRN (21:12)
[2022-09-14] MEDS: GABAPENTIN 300 MG CAP PO SCH (21:14)
[2022-09-15] MEDS: FAMOTIDINE 40 MG TABLET PO SCH (05:22)
[2022-09-15] MEDS: LEVOTHYROXINE SODIUM 100 MCG TABLET PO SCH (05:23)
--- NOTE | 2022-09-15 07:41 | Hospitalist Progress Note ---
Date of Service September 15, 2022 Assessment & Plan (1) Back pain: (2) Compression fracture of body of thoracic vertebra: Plan: Pt presents with acute on chronic back pain that has become intractable limiting ability to complete her ADLs at home. CT lumbar spine showed subacute-appearing left posterior rib fractures. These are new from 01/02/2022.There is a mild acute to subacute inferior endplate compression fracture of T11. This is also new from 01/02/2022. CT thoracic spine showed no evidence of acute fracture is seen. Chronic compression deformities of thoracic vertebrae are noted. Ortho -spine consulted Unable to get a MRI of the thoracic spine secondary to metal in various places in her body including her eyes. No surgical intervention as per ortho continue pain control PT/OT eval Fall precaution (3) Cholelithiasis: Plan: Denies any abdominal pain CT abd/pel with cholelithiasis and possible findings c/w acute cholecystitis. Liver u/s showed cholelithiasis within a distended gallbladder. The gallbladder wall is mildly thickened and edematous and there is pericholecystic fluid HIDA scan showed normal hepatobiliary scan. No evidence for acute cholecystitis. Surgery on board and not convinced this is cholecystitis since pt has no pain postprandial Tolerated diet Continue monitor Abnormal UA UA positive for Nitrite, Leukocytes and bacteria Ucultx (09/13) positive Denies any urinary symptoms Patient's UA and urine culture from 09/13 concerning for UTI. Discussed this with the patient and her daughter. They are very concerned and they do not want to start any antibiotics, as patient has history of C. difficile. Decided to repeat her UA. Repeat UA 09/14 without bacteria or nitrites. Discussed in detail with pt and her daughter that they will need to follow-up on final culture and discuss further with PCP. Also discussed option of starting p.o. vancomycin prophylactically. They both are adamant about not starting any antibiotics at this time. Patient also denies any dysuria. (4) Cirrhosis: Plan: Liver u/s showed Cirrhotic liver morphology and trace perihepatic ascites. CT showed cirrhotic liver morphology. MELD score 9 No new plans from GI standpoint for cirrhosis management (5) Type 2 diabetes mellitus: Plan: Most recent hemoglobin A1c 9.1 on 09/13 Continue insulin sliding scale, basal insulin Continue to hold oral diabetic med Continue monitor blood sugar (6) Hypothyroid: Plan: Continue levothyroxine (7) COPD (chronic obstructive pulmonary disease): Plan: Pt reports she is not using inhalers at present as she had possible thrush previously when on them. Oral Thrush started on diflucan continue monitor Plan Code Status: Full Code DVT Prophylaxis: SubQ heparin Admission and Anticipated Discharge Date Admission Date: September 12, 2022 Subjective Pt was seen and examined for follow up of back pain Sitting in chair in no acute distress watching TV She walked back and forth to the bathroom with assist per RN PT at the bedside Denies any fever, chills, chest pain, palpitation, dizziness, shortness of breath. Denies any suprapubic pain or dysuria. Review of Systems Review of Systems: All systems reviewed & are unremarkable except as noted in Subjective Physical Exam Physical Exam: General- elderly F , in NAD Head- at raumatic Eyes- PER RL, EOMI, ENT- nirav pharynx clear Neck - supple, no JVD L ungs- clear to aus cultation Heart- r egular rhythm; no murmur Abdomen- no rmal bowel sounds, soft, nontender E xtremities- no ca lf tenderness Neur o- alert, oriented x 3; PERRL, EOMI; no facial palsy; no dysarthria Skin - warm & dry Results & Data Results & Data ([facility]) Vital Signs (Past 12 Hours) Vital Signs Temp Pulse Pulse Resp BP BP Pulse Ox 09/15/22 02:40 37.0 C 72 18 95/54 L 92 09/14/22 22:57 73 09/14/22 22:56 36.7 C 77 16 147/79 H 91 09/14/22 20:00 O2 Del Method 09/15/22 02:40 Room Air 09/14/22 22:57 09/14/22 22:56 Room Air 09/14/22 20:00 Room Air Laboratory Results 09/15/22 09/14/22 09/14/22 Range/Units 07:25 20:21 16:11 WBC (4.8-10.8) K/ul RBC (3.93-5.22) M/uL Hgb (12.0-16.0) g/dl Hct (34.1-44.9) % MCV (80.0-100.0) fL MCH (25.0-34.0) pg MCHC (32.0-36.0) g/dL RDW Std Deviation (36.4-46.3) fL RDW Coeff of Daniela (11.5-14.5) % Plt Count (130-400) K/uL MPV (9.4-12.3) fL Sodium (136-145) mmol/L Potassium (3.5-5.1) mmol/L Chloride (98-107) mmol/L Carbon Dioxide (21-32) mmol/L Anion Gap (3-11) BUN (6-23) mg/dl Creatinine (0.6-1.2) mg/dl Est Cr Clr Drug Dosing ml/min Est GFR ( Amer) ml/min Est GFR (Non-Af Amer) ml/min BUN/Creatinine Ratio (10-20) Glucose (70-99(Fasting)) mg/dl POC Glucose 121 H 143 H 148 H (70-99) mg/dl Calcium (8.5-10.1) mg/dl Urine Color Urine Appearance (Clear) Urine pH (4.5-7.5) Ur Specific [place] (1.000-1.030) Urine Protein (Negative) Urine Glucose (UA) (Negative) Urine Ketones (Negative) Urine Blood (Negative) Urine Nitrite (Negative) Urine Bilirubin (Negative) Urine Urobilinogen (Negative) Ur Leukocyte Esterase (Negative) Urine WBC (Auto) (0-5) /hpf Urine RBC (Auto) (0-4) /hpf U Hyaline Cast (Auto) (0-5) /lpf U Epithel Cells (Auto) (0-5) /lpf Urine Bacteria (Auto) (Negative) 09/14/22 09/14/22 09/14/22 Range/Units 14:51 11:28 07:40 WBC (4.8-10.8) K/ul RBC (3.93-5.22) M/uL Hgb (12.0-16.0) g/dl Hct (34.1-44.9) % MCV (80.0-100.0) fL MCH (25.0-34.0) pg MCHC (32.0-36.0) g/dL RDW Std Deviation (36.4-46.3) fL RDW Coeff of Daniela (11.5-14.5) % Plt Count (130-400) K/uL MPV (9.4-12.3) fL Sodium 136 (136-145) mmol/L Potassium 4.6 (3.5-5.1) mmol/L Chloride 104 (98-107) mmol/L Carbon Dioxide 27 (21-32) mmol/L Anion Gap 5 (3-11) BUN 45 H (6-23) mg/dl Creatinine 1.36 H (0.6-1.2) mg/dl Est Cr Clr Drug Dosing 24.2 ml/min Est GFR ( Amer) 41.0 ml/min Est GFR (Non-Af Amer) 35.4 ml/min BUN/Creatinine Ratio 33.1 H (10-20) Glucose 92 (70-99(Fasting)) mg/dl POC Glucose 114 H (70-99) mg/dl Calcium 9.7 (8.5-10.1) mg/dl Urine Color Yellow Urine Appearance Turbid A (Clear) Urine pH 5.0 (4.5-7.5) Ur Specific [place] 1.007 (1.000-1.030) Urine Protein Negative (Negative) Urine Glucose (UA) 2+ H (Negative) Urine Ketones Negative (Negative) Urine Blood 2+ H (Negative) Urine Nitrite Negative (Negative) Urine Bilirubin Negative (Negative) Urine Urobilinogen Negative (Negative) Ur Leukocyte Esterase 3+ H (Negative) Urine WBC (Auto) >30 H (0-5) /hpf Urine RBC (Auto) 0-4 (0-4) /hpf U Hyaline Cast (Auto) 1-5 (0-5) /lpf U Epithel Cells (Auto) 10-20 H (0-5) /lpf Urine Bacteria (Auto) Negative (Negative) 09/14/22 Range/Units 07:40 WBC 4.45 L (4.8-10.8) K/ul RBC 3.67 L (3.93-5.22) M/uL Hgb 11.2 L (12.0-16.0) g/dl Hct 34.7 (34.1-44.9) % MCV 94.6 (80.0-100.0) fL MCH 30.5 (25.0-34.0) pg MCHC 32.3 (32.0-36.0) g/dL RDW Std Deviation 52.0 H (36.4-46.3) fL RDW Coeff of Daniela 15.0 H (11.5-14.5) % Plt Count 72 L (130-400) K/uL MPV 10.5 (9.4-12.3) fL Sodium (136-145) mmol/L Potassium (3.5-5.1) mmol/L Chloride (98-107) mmol/L Carbon Dioxide (21-32) mmol/L Anion Gap (3-11) BUN (6-23) mg/dl Creatinine (0.6-1.2) mg/dl Est Cr Clr Drug Dosing ml/min Est GFR ( Amer) ml/min Est GFR (Non-Af Amer) ml/min BUN/Creatinine Ratio (10-20) Glucose (70-99(Fasting)) mg/dl POC Glucose (70-99) mg/dl Calcium (8.5-10.1) mg/dl Urine Color Urine Appearance (Clear) Urine pH (4.5-7.5) Ur Specific [place] (1.000-1.030) Urine Protein (Negative) Urine Glucose (UA) (Negative) Urine Ketones (Negative) Urine Blood (Negative) Urine Nitrite (Negative) Urine Bilirubin (Negative) Urine Urobilinogen (Negative) Ur Leukocyte Esterase (Negative) Urine WBC (Auto) (0-5) /hpf Urine RBC (Auto) (0-4) /hpf U Hyaline Cast (Auto) (0-5) /lpf U Epithel Cells (Auto) (0-5) /lpf Urine Bacteria (Auto) (Negative) Medications Administered Current Inpatient Medications Aspirin (Aspirin 81 Mg Ectab) [address] [facility] Stop: 10/13/22 08:59 Last Admin: 09/14/22 08:01 Dose: 81 mg Atorvastatin Calcium (Atorvastatin 20 Mg Tab) [address] [facility] Stop: 10/13/22 08:59 Last Admin: 09/14/22 08:01 Dose: 20 mg Clopidogrel Bisulfate (Clopidogrel Bisulfate 75 Mg Tab) [address] [facility] Stop: 10/13/22 08:59 Last Admin: 09/14/22 08:01 Dose: 75 mg Dextrose (Dextrose 50% 50 Ml Syringe) 25 - 50 ml IV UD PRN; Protocol PRN Reason: Hypoglycemia Protocol Stop: 10/12/22 10:28 Famotidine (Famotidine 40 Mg Tablet) 40 mg PO DAILYBB [facility] Stop: 10/13/22 06:29 Last Admin: 09/15/22 05:22 Dose: 40 mg Furosemide (Furosemide 20 Mg Tab) 20 mg PO DAILY AAKASH Stop: 10/13/22 08:59 Last Admin: 09/14/22 08:01 Dose: 20 mg Gabapentin (Gabapentin 300 Mg Cap) 300 mg PO HS AAKASH Stop: 10/12/22 20:59 Last Admin: 09/14/22 21:14 Dose: 300 mg Glucagon (Glucagon For Inj 1 Mg Vial) 1 mg SQ UD PRN; Protocol PRN Reason: Hypoglycemia Protocol Stop: 10/12/22 10:28 Glucose (Glucose 40% Gel 15 Gm Tube) 15 - 30 gm PO UD PRN; Protocol PRN Reason: Hypoglycemia Protocol Stop: 10/12/22 10:28 Glucose (Glucose 10 Tab/Tube) 4 - 8 tab PO UD PRN; Protocol PRN Reason: Hypoglycemia Treatment Stop: 10/12/22 10:28 Heparin Sodium (Porcine) (Heparin Sod 5,000 Unit/0.5 Ml Vial) 5,000 units SQ Q12 AAKASH Stop: 10/12/22 20:59 Last Admin: 09/14/22 21:14 Dose: 5,000 units Insulin Aspart (Insulin Aspart Per Unit) 0 units SC ACHS AAKASH Stop: 10/12/22 11:29 Last Admin: 09/14/22 21:04 Dose: Not Given Insulin Glargine (Lantus Per Unit Charge) 5 units SQ BID AAKASH Stop: 10/12/22 20:59 Last Admin: 09/12/22 20:49 Dose: 5 units Levothyroxine Sodium (Levothyroxine Sodium 100 Mcg Tablet) 100 mcg PO DAILYBB AAK[facility] Stop: 10/13/22 06:29 Last Admin: 09/15/22 05:23 Dose: 100 mcg Magnesium Oxide (Magnesium Oxide 400 Mg Tab) 400 mg PO Q24H AAKASH Stop: 10/12/22 15:14 Last Admin: 09/14/22 16:42 Dose: 400 mg Miscellaneous (Carbohydrates For Hypoglycemia ) 15 - 30 gm PO UD PRN PRN Reason: Hypoglycemia Protocol Stop: 10/12/22 10:28 Last Admin: 09/13/22 07:30 Dose: 15 gm Nystatin (Nystatin Susp 500,000 U/5 Ml Udc) 5 ml PO QID AAKASH Stop: 09/23/22 12:59 Last Admin: 09/14/22 21:13 Dose: 5 ml Pantoprazole Sodium (Pantoprazole 40 Mg Tab) 40 mg PO DAILY AAKASH Stop: 10/13/22 08:59 Last Admin: 09/14/22 08:02 Dose: 40 mg Raspberry (Raspberry Syrup 5 Ml Udp) 5 ml PO Q12 AAKASH Stop: 09/24/22 10:59 Last Admin: 09/14/22 21:05 Dose: Not Given Tramadol HCl (Tramadol Hcl 50 Mg Tablet) 50 mg PO Q4H PRN PRN Reason: Pain Stop: 10/12/22 13:08 Last Admin: 09/14/22 21:12 Dose: 50 mg (1) Back pain Back pain laterality: unspecified Back pain location: back pain in unspecified location Chronicity: unspecified Qualified Code(s): M54.9 - Dorsalgia, unspecified (2) Cholelithiasis Biliary obstruction: without biliary obstruction Cholecystitis acuity: acute Cholecystitis presence: with cholecystitis Cholelithiasis location: gallbladder Qualified Code(s): K80.00 - Calculus of gallbladder with acute cholecystitis without obstruction
[2022-09-15] MEDS: INSULIN ASPART PER UNIT SC SCH ×3 (07:53→17:02)
[2022-09-15] MEDS: CLOPIDOGREL BISULFATE 75 MG TAB PO SCH (07:58)
[2022-09-15] MEDS: HEPARIN SOD 5,000 UNIT/0.5 ML VIAL SQ SCH (07:58)
[2022-09-15] MEDS: FUROSEMIDE 20 MG TAB PO SCH (07:59)
[2022-09-15] MEDS: NYSTATIN SUSP 500,000 U/5 ML UDC PO SCH ×3 (07:59→17:02)
[2022-09-15] MEDS: PANTOprazole 40 MG TAB PO SCH (07:59)
[2022-09-15] MEDS: ATORVASTATIN 20 MG TAB PO SCH (07:59)
[2022-09-15] MEDS: ASPIRIN 81 MG ECTAB PO SCH (07:59)
[2022-09-15] MEDS: RASPBERRY SYRUP 5 ML UDP PO SCH (08:00)
[2022-09-15] MEDS: traMADol HCL 50 MG TABLET PO PRN (08:50)
[2022-09-15] MEDS ORDERED: POLYETHYLENE (MIRALAX) 17 GM PACK PO STA (11:00)
--- NOTE | 2022-09-15 17:02 | Discharge Summary ---
Date of Service September 15, 2022 Admission HPI Per Admitting Provider This is an 86 y/o female with a PMH of PAD s/p stent L subclavian, SMA, left iliac and fempop bypass, HTN, CKD3, dyslipidemia, IDDM2, Graves s/p VELOZ, hypothyroidism, COPD, infrarenal AAA, and prior C. diff who presented to the ED early this morning with severe back pain that has failed outpatient management. Pt reports a history of back, which seems to flare up about once a year. She saw her PCP last week and was started on prednisone and baclofen but she does not think that this has helped. Pain starts in the left side of her back and radiates to the right side. She denies chest or abdominal pain to me but apparently did have some chest and upper abdominal pain several days ago. Tylenol minimally helpful for pain. She denies any falls. She reports that she "furniture walks" at home but she does have a wheelchair, which she uses when she goes out. She lives by herself. She denies palpitations or shortness of breath. She has been coughing, but it is unclear if this is any worse than her baseline. Cough is productive of clear to white mucus. She has been using Robitussin with relief. Appetite is poor at baseline. No N/V/D. No change in urination. No fevers. She has chills but reports that she gets cold easily. She self-titrates her insulin and is planning to decrease it soon because she is not eating as many fruits as during the summer. Currently using 50 units daily but thinks she needs to decrease to 40-45 units soon. Admission Exam Per Admitting Provider Constitutional: no acute distress and + uncomfortable intermittently tearful during visit Eyes: + anicteric sclerae ENMT: external ear and nose normal, oropharynx normal Neck: trachea midline Respiratory: no respiratory distress and no labored breathing Auscultation: lungs clear to auscultation bilaterally; no rales, no rhonchi and no wheezes Cardiovascular: Rate/Rhythm: regular rate and regular rhythm Vessels: radial pulses present Extremities: no pedal edema Gastrointestinal (Abdomen): Inspection/Auscultation: normal bowel sounds; abdomen not distended Percussion/Palpation: abdomen soft; abdomen nontender Musculoskeletal: left paraspinal muscle tenderness, no spinous process tenderness Skin: no jaundice Neurologic: moves all extremities; no focal motor deficits Psychiatric: Orientation: oriented x 3 Affect: + tearful affect Principal Diagnosis Back pain Compression fracture of body of thoracic vertebra abnormal UA Discharge Exam General- elderly F, in NAD Head- atraumatic Eyes- PERRL, EOMI, ENT- oropharynx clear Neck- supple, no JVD Lungs- clear to auscultation Heart- regular rhythm; no murmur Abdomen- normal bowel sounds, soft, nontender Extremities- no calf tenderness Neuro- alert, oriented x 3; PERRL, EOMI; no facial palsy; no dysarthria Skin- warm & dry Discharge Data Allergies Allergy/AdvReac Type Severity Reaction Status Date / Time vitamin E (d-alpha Allergy Intermediate ITCHY Unverified 01/01/22 16:17 tocopherol) RASH, HIVES--PER [facility] 09/21/21 ENCOUNTER amoxicillin AdvReac Intermediate STOMACH Unverified 01/01/22 16:17 UPSET--PER [facility] 09/21/21 ENCOUNTER clavulanic acid AdvReac Intermediate STOMACH Unverified 01/01/22 16:17 UPSET--PER [facility] 09/21/21 ENCOUNTER dulaglutide [From Trulicity] AdvReac Vomiting Verified 09/12/22 08:47 Consultations 09/12/22 08:33 ED Decision to Admit Stat 09/12/22 09:59 Consult Gastroenterology Routine Consult General Surgery Routine 09/12/22 12:26 Consult Orthopedic Surgery Routine Ordered Studies 09/12/22 04:26 CT abd pelvis wo con Stat CT lumbar spine wo con Stat FINDINGS: Lung bases: The heart is mildly enlarged and without pericardial effusion. The coronary arteries are densely calcified. There is a small hiatal hernia. The lung bases are clear noting bibasilar scarring/atelectasis. Liver: The unenhanced liver is cirrhotic in morphology and heterogeneous in attenuation. There is nodularity of the hepatic surface contour. There is no intrahepatic biliary ductal dilatation. Gallbladder: There are numerous calcified gallstones, with stones seen in the region of the gallbladder neck. The gallbladder is distended. The wall is mildly thickened and there is trace surrounding fluid. Spleen: The spleen is mildly enlarged measuring 13.6 cm in length. Pancreas: The unenhanced pancreas is moderately atrophic and grossly unremarkable. Adrenal glands: Unremarkable. Kidneys: The unenhanced kidneys demonstrate cortical atrophy and are without hydronephrosis. There is a punctate nonobstructing calculus seen in the right. A 3.7 cm simple cyst is noted on the left. Abdominal vasculature: There is advanced atherosclerotic calcification of the abdominal aorta. An infrarenal abdominal aortic aneurysm measures 3.5 x 3.9 cm (AP x transverse). A stent is noted in the superior mesenteric artery. Bowel: There is moderate to advanced colonic diverticulosis without CT evidence of acute diverticulitis. No bowel obstruction is seen. [id number] fecal retention is noted throughout the colon. The appendix is not visualized. Peritoneum: There is trace perihepatic ascites. No intraperitoneal free air is seen. There is a fat-containing umbilical hernia. Lymphadenopathy: None. Pelvic viscera: The bladder is distended but otherwise normal in appearance. The uterus and adnexa are normal as visualized. There is a fat containing right groin hernia. Skeletal structures: The skeletal structures are osteopenic. See below for dedicated discussion of the lumbar spine. No lytic or blastic lesions are seen. There are subacute-appearing left posterior 7th through 11th rib fractures. An inferior endplate compression deformity of T10 is unchanged from 01/02/2022. There is an acute to subacute mild inferior endplate compression fracture of T11 which is new from previous. The bony pelvis and proximal femora appear intact. LUMBAR SPINE: Vertebral body height and alignment are maintained throughout the lumbar spine. There is no evidence of fracture or malalignment. Anterior and lateral marginal osteophytes are seen throughout. The transverse and spinous processes are intact. There is no evidence of spondylolysis. There is moderate to severe disc space narrowing at L4-L5 with associated endplate sclerosis. Mild disc space narrowing is seen at the remaining lumbar levels. There are posterior disc osteophyte complexes at all lumbar levels. There is no CT evidence of large disc herniation or high-grade central canal stenosis. Facet arthropathy is noted in the lower lumbar region. There is fatty atrophy of the paraspinous musculature. IMPRESSION: 1. Cholelithiasis within a distended gallbladder. Mild gallbladder wall thickening and trace pericholecystic fluid are nonspecific and could be related to cirrhosis. Acute cholecystitis is not excluded. Clinical and laboratory correlation will be essential. Right upper quadrant ultrasound could be considered for further assessment. 2. There are subacute-appearing left posterior rib fractures. These are new from 01/02/2022. 3. There is a mild acute to subacute inferior endplate compression fracture of T11. This is also new from 01/02/2022. 4. An inferior endplate compression fracture of T10 is unchanged from previous. 5. There is no evidence of acute fracture or malalignment involving the lumbar spine. 6. Cirrhotic liver morphology. 7. Trace perihepatic ascites and mild splenomegaly indicate portal hypertension. 8. Colonic diverticulosis without CT evidence of acute diverticulitis. 9. There is a 3.5 x 3.9 cm infrarenal abdominal aortic aneurysm. 10. Additional findings as above. CT thoracic spine wo con Stat FINDINGS: Anterior wedge deformities at T6 and T10 are unchanged from prior exams. Multilevel degenerative changes are seen. Vertebral body alignment is within normal limits. Mediastinal lymph nodes are seen. Aortic atherosclerosis is noted. Biapical scarring is noted and there is bilateral atelectasis. IMPRESSION: No evidence of acute fracture is seen. Chronic compression deformities of thoracic vertebrae are noted. 09/12/22 07:40 US RUQ [US liver] Stat FINDINGS: Liver: The liver is cirrhotic in morphology and heterogeneous in echotexture. There is nodularity of the hepatic surface contour. There is no intrahepatic biliary ductal dilatation. The main portal vein is patent. Gallbladder: The gallbladder is distended and contains shadowing calcified gallstones. The gallbladder wall is mildly thickened and edematous measuring up to 3 mm. There is trace pericholecystic fluid. A sonographic Pitts's sign could not be assessed as the patient received analgesia. The common bile duct measures up to 0.6 cm in diameter. Pancreas: Visualized portions of the pancreatic head and body are normal in appearance. The splenic vein is patent. Right kidney: Survey images of the right kidney demonstrate mild cortical atrophy. Echotexture is normal. There is no hydronephrosis. Ascites: There is trace perihepatic ascites. IMPRESSION: 1. Cirrhotic liver morphology and trace perihepatic ascites. 2. Cholelithiasis within a distended gallbladder. The gallbladder wall is mildly thickened and edematous and there is pericholecystic fluid. These findings are nonspecific given cirrhosis and ascites. A sonographic Pitts's sign could not be assessed. Findings are equivocal for acute cholecystitis which is not excluded. Nuclear hepatobiliary scan could be considered to assess for cystic duct obstruction. Diabetes Follow up Diabetes Follow-up Needed for HgbA1c >9% Hospital Course (1) Back pain: (2) Compression fracture of body of thoracic vertebra: Pt presents with acute on chronic back pain that has become intractable limiting ability to complete her ADLs at home. CT lumbar spine showed subacute-appearing left posterior rib fractures. These are new from 01/02/2022.There is a mild acute to subacute inferior endplate compression fracture of T11. This is also new from 01/02/2022. CT thoracic spine showed no evidence of acute fracture is seen. Chronic compression deformities of thoracic vertebrae are noted. Ortho - spine consulted Unable to get a MRI of the thoracic spine secondary to metal in various places in her body including her eyes. No surgical intervention as per ortho continue pain control PT/OT eval Fall precaution (3) Cholelithiasis: Denies any abdominal pain CT abd/pel with cholelithiasis and possible findings c/w acute cholecystitis. Liver u/s showed cholelithiasis within a distended gallbladder. The gallbladder wall is mildly thickened and edematous and there is pericholecystic fluid HIDA scan showed normal hepatobiliary scan. No evidence for acute cholecystitis. Surgery on board and not convinced this is cholecystitis since pt has no pain postprandial Tolerated diet Continue monitor Abnormal UA UA positive for Nitrite, Leukocytes and bacteria Ucultx (09/13) positive Denies any urinary symptoms Patient's UA and urine culture from 09/13 concerning for UTI. Discussed this with the patient and her daughter. They are very concerned and they do not want to start any antibiotics, as patient has history of C. difficile. Decided to repeat her UA. Repeat UA 09/14 without bacteria or nitrites. Ucultx pending Discussed in detail with pt and her daughter that they will need to follow-up on final culture and discuss further with PCP. Also discussed option of starting p.o. vancomycin prophylactically. They both are adamant about not starting any antibiotics at this time. Patient also denies any dysuria. (4) Cirrhosis: Liver u/s showed Cirrhotic liver morphology and trace perihepatic ascites. CT showed cirrhotic liver morphology. MELD score 9 No new plans from GI standpoint for cirrhosis management (5) Type 2 diabetes mellitus: Most recent hemoglobin A1c 9.1 on 09/13 Continue insulin sliding scale, basal insulin Continue to hold oral diabetic med Continue monitor blood sugar (6) Hypothyroid: Continue levothyroxine (7) COPD (chronic obstructive pulmonary disease): Pt reports she is not using inhalers at present as she had possible thrush previously when on them. Oral Thrush started on diflucan continue monitor Total Time Total Time Spent Total Time Spent (In Minutes): 40 Discharge Plan Discharge Items Patient Disposition: Home - Home Health Services Reason For Visit: INTRACTABLE BACK PAIN,ELEVATED TROPONIN Discharge Diagnosis: Back pain Compression fracture of body of thoracic vertebra abnormal UA Condition on Discharge: Good Activity: Per Instructions section Non-emergency contact: Primary Care Provider Call non-emergency contact if: you have any medication questions and your symptoms worsen Follow-up/Referrals: Lizzie Vaca MD [Primary Care Provider] - ( ) Diet: Carb Consistent or DM2 and Heart Healthy Addtl Attending Provider Instructions: Follow-up with your primary care doctor within 1 week. Use nystatin swish and swallow for next 5 days. For pain, you can take Tylenol 1000 mg 3 times a day. Max daily dose is 3000 mg a day. For more severe pain, use tramadol as prescribed, as needed. It is also recommended that you use lidocaine patch, which you can obtain [id number], often under the name Salonpas. Pending Studies at Discharge: Yes Studies:: final urine cultx Stand-Alone Forms: [facility], Smoking Cessation Medications and DC Order Prescriptions: New nystatin 100,000 unit/mL Suspension 5 ml PO QID 5 Days Qty: 100 0RF tramadol 50 mg Tablet 50 mg PO Q4H PRN (Reason: pain) Qty: 20 0RF Continued atorvastatin 20 mg tablet 20 mg PO QAM clopidogrel 75 mg tablet 75 mg PO QAM aspirin [Kendra Low Dose Aspirin] 81 mg Tablet,Delayed Release (Dr/Ec) 81 mg PO QAM famotidine 40 mg tablet 40 mg PO DAILYBB gabapentin 300 mg capsule 300 mg PO HS ferrous sulfate [FeroSul] 325 mg (65 mg iron) tablet 325 mg PO QAM pantoprazole [Protonix] 40 mg Tablet,Delayed Release (Dr/Ec) 40 mg PO DAILY insulin degludec [Tresiba FlexTouch U-200] 200 unit/mL (3 mL) insulin pen 50 unit SUBCUT DAILY furosemide 40 mg tablet 20 mg PO DAILY Rx Instructions: hold if SBP < 110 prednisone 20 mg tablet 40 mg PO DAILY Rx Instructions: 5 day burst levothyroxine 100 mcg tablet 100 mcg PO QAM baclofen 10 mg tablet 10 mg PO HS PRN (Reason: Pain) Jardiance 25 mg tablet 25 mg PO DAILY Discharge Orders: Discharge Order (Routine); Ordered 09/15/22 Ordered By: Theo Mcclellan/Other Patient Handouts: High Blood Sugar (Hyperglycemia), Hypoglycemia (Low Blood Sugar), Managing Type 2 Diabetes Admission Data Admit Date/Time: 09/12/22 09:33 Attending Provider: Theo Belcher Admit Provider: Surekha Singh Primary Care Provider: Lizzie Vaca Other Providers: Surekha Singh ; Morgan Benitez ; Sury Armijo ; Param Patel ; Sai,[facility] ; Amina Lopez ; [facility] ; [facility]
[2022-09-15] MEDS: MAGNESIUM OXIDE 400 MG TAB PO SCH (17:04)
== END 2022-09-15 19:15 | disposition home health service (06) | DRG 543 ==
LOC: ED 03:51 → 2S 09:33 → SUATTDRO 09:33 → 2S 10:26

== ENCOUNTER 2023-07-10 12:09 | Inpatient (IN) ==
--- NOTE | 2023-07-10 13:16 | Emergency Department Note ---
Impression & Plan Shortness of breath, Acute exacerbation of CHF (congestive heart failure), Non- ST elevation AR (NSTEMI), Anemia requiring transfusions, Pulmonary edema ED Provider Note HISTORY OF PRESENT ILLNESS: Patient is a 87-year-old female presenting with shortness of breath and bilateral leg pain and swelling. Patient reportedly has been having grossly worsening pain in her bilateral lower extremities for the last few weeks. She has a history of peripheral arterial disease and recently had surgery a few weeks ago and reportedly has been "deteriorating since." She has been unable to get up secondary to immense pain in her bilateral legs in the last 24 hours. No injury to the leg. Reports progressive swelling over the last few weeks in the bilateral legs. She is on Plavix. Denies any recent fevers. Denies any nausea or vomiting. She reportedly has been having progressively worsening shortness of breath over the last week. Denies any DVT or PE history. She is also comp laining of a "throbbing" sensation in her head. No reported recent sick contact exposures. No fever. Family was concerned today because the patient was unable to get up and get around secondary to her leg pain and shortness of breath ROS: as above PHYSICAL EXAM: Constitutional: Patient appears in no acute distress. HENT: Head: Normocephalic and atraumatic. Eyes: EOMI, PERRL Mouth/Throat: Mucous membranes moist. Neck: Trachea midline. Neck supple. Cardiovascular: RRR, No murmurs, rubs or gallops. Intact distal pulses. Pulmonary/Chest: No respiratory distress. Breath sounds clear and equal bilaterally. No wheezes or rales. Abdominal: Abdomen soft, no tenderness, rebound or guarding. Musculoskeletal: No tenderness or deformity noted. Trace nonpitting edema in the bilateral lower extremities. Skin: Warm and dry. No rash, erythema, pallor or cyanosis Psychiatric: Appropriate mood and affect for situation. Neurological: Alert and keenly responsive. CN II-XII grossly intact, moving all extremities equally and fully. MDM: - Vitals signs showed hypertension. - History obtained via patient. Patient presents with shortness of breath and bilateral leg pain/swelling. Patient reports progressively worsening of her bilateral lower extremity pain and swelling over the last few weeks. She states that she has been very short of breath for the last week. Denies any DVT or PE history. She is complaining of a throbbing sensation in her head. Denies any cough or fevers. Family was concerned today because the patient was unable to get up and get around secondary to her leg pain and shortness of breath - Chronic conditions affecting care: CKD; DM-2; HTN; HLD; PAD - Differential diagnoses include, but are not limited to: Congestive heart failure; acute coronary syndrome; COPD/asthma exacerbation; pulmonary edema; pulmonary embolism; pneumonia; pneumothorax; viral syndrome; anemia - Order placed for continuous cardiac monitoring. At this time, monitor showed rate of 95 bpm with normal sinus rhythm, per my interpretation. - External medical records reviewed. - EKG reviewed by myself showed normal sinus rhythm. Rate 74 bpm. QTc 468. No acute ischemic changes. - Laboratory workup interpreted by myself showed normal WBC; anemia (Hgb 5.2); elevated D-dimer (620); slight hyponatremia (Na 135); CKD; elevated troponin (16.5); elevated BNP (1084) - CXR shows pulmonary edema, per my interpretation. Radiology notes trace bilateral pleural effusions. - Viral respiratory panel negative - CT PE obtained and negative for PE. - Patient typed and screened. Patient was consented for blood. 2 units of packed red blood cells was ordered for transfusion. - 40 mg IV lasix ordered. - Patient's NSTEMI likely type II in etiology secondary to patient's anemia and her CHF exacerbation. - Discussion was had with social work assistant about patient's case and need for admission - Hospitalist consulted for admission - Patient admitted to [facility] service for further evaluation and management. I provided 46 minutes of critical care time to this patient's care outside of billable procedures. ASSESSMENT AND PLAN: Diagnosis: Shortness of breath; bilateral lower extremity edema; anemia requiring transfusion; pulmonary edema; NSTEMI; CHF exacerbation Plan: admit Past Med/Surg History Medical History Acute metabolic encephalopathy EARL (acute kidney injury) Anemia Aneurysm of infrarenal abdominal aorta Aneurysm of infrarenal abdominal aorta Atrial fibrillation with rapid ventricular response Chest pain Cholelithiasis Cholelithiasis Cirrhosis Cirrhosis Cirrhosis CKD (chronic kidney disease) stage 3, GFR 30-59 ml/min CKD (chronic kidney disease), stage III COPD (chronic obstructive pulmonary disease) COPD (chronic obstructive pulmonary disease) Diabetes mellitus, type II Disorder of acid-base balance DM II (diabetes mellitus, type II), controlled DVT prophylaxis Emphysema Fall GERD (gastroesophageal reflux disease) GI bleed Graves disease History of acute renal failure History of Graves' disease HLD (hyperlipidemia) HTN (hypertension) Hypertension Hypoglycemic episode in patient with diabetes mellitus Hypothyroid Hypothyroidism Metabolic acidosis PAD (peripheral artery disease) PAD (peripheral artery disease) PAF (paroxysmal atrial fibrillation) Pancytopenia Pneumonia Sepsis Sinus bradycardia Thrombocytopenia Type 2 diabetes mellitus Surgical History History of appendectomy History of intravascular stent placement Reported Left subclavian, superior mesenteric artery, L iliac, L fempop bypass - Dr Andrade [facility] Family History Other Diabetes Hypertension Social History Smoking Status: Former smoker Hx Alcohol Use: Yes Alcohol Intake Frequency: Monthly or Less Alcohol Intake Frequency Comment: Holidays Hx Substance Use: No Preferred Language: Salvadorean Communication Ability: Effective [employer]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 marital status: Current Living Situation: Alone Current Living Situation Comment: unable to determine How many Children do You have: 3 Feels Safe at Home: Yes Assistive Devices: Walker Allergies Allergies Allergy/AdvReac Type Severity Reaction Status Date / Time vitamin E (d-alpha Allergy Intermediate ITCHY Unverified 01/01/22 16:17 tocopherol) RASH, HIVES--PER [facility] 09/21/21 ENCOUNTER amoxicillin AdvReac Intermediate STOMACH Unverified 01/01/22 16:17 UPSET--PER [facility] 09/21/21 ENCOUNTER baclofen AdvReac Intermediate Falls Unverified 07/10/23 16:09 clavulanic acid AdvReac Intermediate STOMACH Unverified 01/01/22 16:17 UPSET--PER [facility] 09/21/21 ENCOUNTER ropinirole AdvReac Intermediate [place] Unverified 07/10/23 16:09 tramadol AdvReac Intermediate [place] Unverified 07/10/23 16:09 [facility] AdvReac Vomiting Verified 09/12/22 08:47 Home Meds Home Medications Medication Instructions Recorded Confirmed aspirin 81 mg tablet,delayed 81 mg PO QAM 04/10/19 07/10/23 release (Kendra Low Dose Aspirin) atorvastatin 20 mg tablet 20 mg PO QPM 04/10/19 07/10/23 clopidogrel 75 mg tablet 75 mg PO QAM 04/10/19 07/10/23 famotidine 40 mg tablet 40 mg PO DAILYBB 03/29/21 07/10/23 ferrous sulfate 325 mg (65 mg 325 mg PO 3XWK 01/01/22 07/10/23 iron) tablet (FeroSul) gabapentin 300 mg capsule 300 mg PO HS 01/01/22 07/10/23 insulin degludec 200 unit/mL (3 32 unit subcut QAM 01/01/22 07/10/23 mL) subcutaneous pen (Tresiba FlexTouch U-200 insulin) empagliflozin 25 mg tablet 25 mg PO QAM 09/12/22 07/10/23 (Jardiance) furosemide 40 mg tablet 10 mg PO QAM 09/12/22 07/10/23 levothyroxine 100 mcg tablet 100 mcg PO QAM 09/12/22 07/10/23 cranberry 500 mg capsule 500 mg PO HS 07/10/23 07/10/23 fluticasone propionate 50 1 spray intranasal DAILY PRN 07/10/23 07/10/23 mcg/actuation nasal Allergy Symptoms spray,suspension lidocaine 5 % topical patch 1 patch transdermal DIRECTED 07/10/23 07/10/23 PRN Pain melatonin 2 gummy PO HS 07/10/23 07/10/23 sulfamethoxazole 800 See Rx Instructions .Route .COMPLEX 07/10/23 07/10/23 mg-trimethoprim 160 mg tablet (Bactrim DS) trolamine salicylate 10 % topical 1 applic topical DAILY PRN Pain 07/10/23 07/10/23 cream (Aspercreme) Results & Data (ED) Vital Signs Vital Signs - 24 hr 07/10/23 12:20 07/10/23 13:30 07/10/23 13:30 Temperature 36.8 C Temperature Source Temporal Artery Scan Pulse Rate 73 Pulse Rate [Apical] 80 Pulse Rhythm [Apical] Regular Respiratory Rate 18 16 Respiratory Effort / Characteristics Non-Labored Spontaneous Non-Labored Respiratory Depth Normal Normal Blood Pressure 168/126 H Blood Pressure [Right Arm] 140/50 L Blood Pressure Mean 140 Blood Pressure Mean [Right Arm] 80 Blood Pressure Position Sitting Pulse Oximetry 97 93 96 Oxygen Delivery Method Room Air Room Air Room Air Sepsis Recent Fever Within 48 Hours No Sepsis New/Unexplained Change in Mental Status N/A Sepsis Action Taken by Nursing No Action Required 07/10/23 13:30 07/10/23 13:34 07/10/23 15:00 Temperature Temperature Source Pulse Rate 81 Pulse Rate [Apical] 99 H Pulse Rhythm [Apical] Regular Respiratory Rate 16 Respiratory Effort / Characteristics Non-Labored Respiratory Depth Normal Blood Pressure Blood Pressure [Right Arm] 99/69 L Blood Pressure Mean Blood Pressure Mean [Right Arm] 79 Blood Pressure Position Pulse Oximetry 96 97 Oxygen Delivery Method Room Air Room Air Sepsis Recent Fever Within 48 Hours Sepsis New/Unexplained Change in Mental Status Sepsis Action Taken by Nursing 07/10/23 15:59 07/10/23 16:22 Temperature 36.5 C 36.5 C Temperature Source Oral Oral Pulse Rate 90 80 Pulse Rate [Apical] Pulse Rhythm [Apical] Respiratory Rate 18 18 Respiratory Effort / Characteristics Respiratory Depth Blood Pressure 171/66 H 166/55 H Blood Pressure [Right Arm] Blood Pressure Mean 101 92 Blood Pressure Mean [Right Arm] Blood Pressure Position Pulse Oximetry 97 96 Oxygen Delivery Method Sepsis Recent Fever Within 48 Hours Sepsis New/Unexplained Change in Mental Status Sepsis Action Taken by Nursing Laboratory Data 07/10/23 12:42 07/10/23 12:42 Lab Results 07/10/23 07/10/23 07/10/23 Range/Units 12:42 12:42 12:42 WBC 3.65 L (4.8-10.8) K/ul RBC 2.11 L (4.20-5.40) M/uL Hgb 5.2 L* (12.0-16.0) g/dl Hct 18.0 L* (37.0-47.0) % MCV 85.3 (80.0-100.0) fL MCH 24.6 L (25.0-34.0) pg MCHC 28.9 L (32.0-36.0) g/dL RDW Std Deviation 53.9 H (36.4-46.3) fL RDW Coeff of Daniela 17.3 H (11.5-14.5) % Plt Count 66 L (130-400) K/uL MPV 11.7 (9.4-12.4) fL Immature Gran % (Auto) 0.3 % Neut % (Auto) 69.0 % Lymph % (Auto) 20.3 % [place] % (Auto) 8.2 % Eos % (Auto) 1.9 % Baso % (Auto) 0.3 % Neut # (Auto) 2.52 (1.40-6.50) K/uL Lymph # (Auto) 0.74 L (1.20-3.40) K/uL [place] # (Auto) 0.30 (0.11-0.59) K/uL Eos # (Auto) 0.07 (0.00-0.50) K/uL Baso # (Auto) 0.01 (0.00-0.20) K/uL Immature Gran # (Auto) 0.01 (0.01-0.20) K/uL Polychromasia 1+ Hypochromasia Present PT 11.5 (9.0-12.0) Seconds INR 1.1 (0.9-1.1) APTT 26.5 (21.0-31.0) Seconds PTT Ratio 0.9 D-Dimer 620 H* (0-500) ug/L FEU Sodium 135 L (136-145) mmol/L Potassium 4.3 (3.5-5.1) mmol/L Chloride 107 (98-107) mmol/L Carbon Dioxide 23 (21-32) mmol/L Anion Gap 5 (3-11) BUN 30 H (6-23) mg/dl Creatinine 1.37 H (0.6-1.2) mg/dl Est Cr Clr Drug Dosing Not Reportable Est GFR ( Amer) 40.4 ml/min Est GFR (Non-Af Amer) 34.8 ml/min BUN/Creatinine Ratio 21.9 H (10-20) Glucose 266 H (70-99(Fasting)) mg/dl Calcium 8.8 (8.6-10.3) mg/dl Total Bilirubin 0.7 (0.2-1.0) mg/dl AST 25 (13-39) U/L ALT 25 (7-52) U/L Alkaline Phosphatase 113 H (34-104) U/L Troponin I High Sens 16.5 H (0-14) pg/ml B-Natriuretic Peptide (0-100) pg/ml Total Protein 5.8 L (6.0-8.3) gm/dl Albumin 3.6 (3.4-5.0) gm/dl Globulin 2.2 L (2.5-4.0) gm/dl Albumin/Globulin Ratio 1.6 (0.9-2) Adenovirus (PCR) (NotDetected) B. pertussis DNA (PCR) (NotDetected) B.parapertussis DNA PCR (NotDetected) C. pneumoniae DNA (PCR) (NotDetected) Coronavirus OC43 (PCR) (NotDetected) Coronavirus HKU1 (PCR) (NotDetected) Coronavirus 229E (PCR) (NotDetected) SARS-CoV-2 (PCR) (NotDetected) Coronavirus NL63 (PCR) (NotDetected) Human Metapneumovir PCR (NotDetected) Influenza Type A (PCR) (NotDetected) Influenza Type B (PCR) (NotDetected) M. pneumoniae (PCR) (NotDetected) Parainfluenza 1 (PCR) (NotDetected) Parainfluenza 2 (PCR) (NotDetected) Parainfluenza 3 (PCR) (NotDetected) Parainfluenza 4 (PCR) (NotDetected) RSV (PCR) (NotDetected) Entero/Rhino (PCR) (NotDetected) Blood Type Antibody Screen Crossmatch 07/10/23 07/10/23 07/10/23 Range/Units 12:42 14:07 14:12 WBC (4.8-10.8) K/ul RBC (4.20-5.40) M/uL Hgb (12.0-16.0) g/dl Hct (37.0-47.0) % MCV (80.0-100.0) fL MCH (25.0-34.0) pg MCHC (32.0-36.0) g/dL RDW Std Deviation (36.4-46.3) fL RDW Coeff of Daniela (11.5-14.5) % Plt Count (130-400) K/uL MPV (9.4-12.4) fL Immature Gran % (Auto) % Neut % (Auto) % Lymph % (Auto) % [place] % (Auto) % Eos % (Auto) % Baso % (Auto) % Neut # (Auto) (1.40-6.50) K/uL Lymph # (Auto) (1.20-3.40) K/uL [place] # (Auto) (0.11-0.59) K/uL Eos # (Auto) (0.00-0.50) K/uL Baso # (Auto) (0.00-0.20) K/uL Immature Gran # (Auto) (0.01-0.20) K/uL Polychromasia Hypochromasia PT (9.0-12.0) Seconds INR (0.9-1.1) APTT (21.0-31.0) Seconds PTT Ratio D-Dimer (0-500) ug/L FEU Sodium (136-145) mmol/L Potassium (3.5-5.1) mmol/L Chloride (98-107) mmol/L Carbon Dioxide (21-32) mmol/L Anion Gap (3-11) BUN (6-23) mg/dl Creatinine (0.6-1.2) mg/dl Est Cr Clr Drug Dosing Est GFR ( Amer) ml/min Est GFR (Non-Af Amer) ml/min BUN/Creatinine Ratio (10-20) Glucose (70-99(Fasting)) mg/dl Calcium (8.6-10.3) mg/dl Total Bilirubin (0.2-1.0) mg/dl AST (13-39) U/L ALT (7-52) U/L Alkaline Phosphatase (34-104) U/L Troponin I High Sens (0-14) pg/ml B-Natriuretic Peptide 1084 H (0-100) pg/ml Total Protein (6.0-8.3) gm/dl Albumin (3.4-5.0) gm/dl Globulin (2.5-4.0) gm/dl Albumin/Globulin Ratio (0.9-2) Adenovirus (PCR) Not Detected (NotDetected) B. pertussis DNA (PCR) Not Detected (NotDetected) B.parapertussis DNA PCR Not Detected (NotDetected) C. pneumoniae DNA (PCR) Not Detected (NotDetected) Coronavirus OC43 (PCR) Not Detected (NotDetected) Coronavirus HKU1 (PCR) Not Detected (NotDetected) Coronavirus 229E (PCR) Not Detected (NotDetected) SARS-CoV-2 (PCR) Not Detected (NotDetected) Coronavirus NL63 (PCR) Not Detected (NotDetected) Human Metapneumovir PCR Not Detected (NotDetected) Influenza Type A (PCR) Not Detected (NotDetected) Influenza Type B (PCR) Not Detected (NotDetected) M. pneumoniae (PCR) Not Detected (NotDetected) Parainfluenza 1 (PCR) Not Detected (NotDetected) Parainfluenza 2 (PCR) Not Detected (NotDetected) Parainfluenza 3 (PCR) Not Detected (NotDetected) Parainfluenza 4 (PCR) Not Detected (NotDetected) RSV (PCR) Not Detected (NotDetected) Entero/Rhino (PCR) Not Detected (NotDetected) Blood Type B Positive Antibody Screen NEGATIVE Crossmatch See Detail Administered Medications Discontinued Medications Diphenhydramine HCl (Diphenhydramine 50 Mg/Ml Vial) 25 mg IV NOW STA Stop: 07/10/23 14:45 Last Admin: 07/10/23 14:53 Dose: 25 mg Documented By: RAMÓN Furosemide (Furosemide 40 Mg/4 Ml Vial) 40 mg IV ONE ONE Stop: 07/10/23 14:15 Last Admin: 07/10/23 15:48 Dose: 40 mg Documented By: ROSELIA Acetaminophen (Ofirmev) 1,000 mg in 100 mls @ 400 mls/hr IV NOW STA Stop: 07/10/23 14:59 Last Infusion: 07/10/23 15:08 Dose: 0 mls/hr Documented By: Admin: 07/10/23 14:53 Dose: 400 mls/hr Documented By: RAMÓN Ioversol (Ioversol 350 Mg 125ml Prefilled Syringe) 115 ml IV ONCE ONE Stop: 07/10/23 15:15 Last Admin: 07/10/23 15:14 Dose: 115 ml Documented By: TREVER Imaging Data Radiologist's Impression: Chest X-Ray 07/10/23 12:28 XR chest 1V not portable HISTORY: Chest pain, nonspecific COMPARISON: Chest CT 03/27/2023. FINDINGS: No pneumothorax. Trace bilateral pleural effusions. There is progressive interstitial/vascular thickening consistent with mild congestive change. A left subclavian vascular stent is noted. Multiple old, healed bilateral rib fractures. There are also multiple subacute/healing right-sided rib fractures. The heart is normal in size. Hazy appearance of the right lateral lung base. This could be due to overlapping soft tissue or correspond to the area of scarring on the prior chest CT. IMPRESSION: 1. Mild congestive change and trace bilateral pleural effusions. This has progressed in the interval. 2. Hazy appearance to the periphery of the right lateral lung base. This may correspond to the area of scarring on the prior chest CT. 3. Multiple subacute/healing right-sided rib fractures. No pneumothorax. ACT 112: Negative or not required by law. Electronically signed by: Sunday Enciso M.D. 07/10/2023 2:02 PM Chest CTA 07/10/23 14:13 CHEST CTA for PULMONARY ARTERIES CT DOSE: 533.00 mGy.cm HISTORY: Allergic reaction. Shortness of breath. TECHNIQUE: Multiaxial CT images of the chest were performed following the intravenous administration of contrast to evaluate the pulmonary arteries. 3D/Maximal intensity projection images were also obtained. Sagittal and coronal reformations were also reviewed. A dose lowering technique was utilized adhering to the principles of ALARA. COMPARISON STUDY: Chest CT 03/27/2023. FINDINGS: Artifact results in suboptimal evaluation of the chest. There are multiple subacute to chronic compression fractures again noted within the thoracic spine. These are similar to the prior study. Multiple healing and healed bilateral rib fractures. No definite acute rib fractures. A left subclavian stent is noted and appears patent. 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 Advanced atherosclerotic plaque within the thoracic aorta. No evidence for an aortic dissection. The thoracic aorta is normal in caliber. The heart is mildly enlarged. No pericardial effusion. Trace right pleural effusion is present. Nondiagnostic evaluation of the majority of the bilateral lower lobe, right middle lobe, and lingular pulmonary arteries due to the respiratory motion artifact. However, the remaining pulmonary arteries show no filling defects to suggest a pulmonary embolus. Normal caliber esophagus. Limited views the upper abdomen demonstrate a cirrhotic liver, trace perihepatic ascites, and splenomegaly. The visualized adrenal glands appear unremarkable. Subcentimeter mediastinal lymph nodes do not meet CT criteria for pathologic involvement. No pneumothorax. The central airways appear patent. Mild biapical pleural-parenchymal scarlike densities remain unchanged. There is inte rlobular septal thickening consistent with mild pulmonary edema. This is new compared to the prior study. Stable peripheral scarlike density within the right lower lobe again noted. No new focal lung consolidations identified. IMPRESSION: 1. Suboptimal evaluation of the chest is motion artifact. No definite evidence for a pulmonary embolus with limitations as described above. 2. Cardiomegaly with mild interstitial pulmonary edema and a trace right pleural effusion. 3. Multiple healed/healing fractures again noted within the chest. No pneumothorax. 4. Cirrhotic liver with trace perihepatic ascites and splenomegaly, unchanged. ACT 112: Negative or not required by law. Electronically signed by: Sunday Enciso M.D. 07/10/2023 3:42 PM Discharge Plan Visit Data Chief Complaint: Shortness of Breath/Dyspnea Stated Complaint: DIFFICULTY BREATHING, RASH ON LEGS, GAIT DIST ED Provider: Andreina Brannon Discharge Problem: Shortness of breath, Acute exacerbation of CHF (congestive heart failure), Non- ST elevation AR (NSTEMI), Anemia requiring transfusions, Pulmonary edema Forms Stand Alone Forms: My [facility] [employer] Prescriptions Prescriptions: No Action atorvastatin 20 mg tablet 20 mg PO QPM clopidogrel 75 mg tablet 75 mg PO QAM aspirin [Kendra Low Dose Aspirin] 81 mg Tablet,Delayed Release (Dr/Ec) 81 mg PO QAM famotidine 40 mg tablet 40 mg PO DAILYBB gabapentin 300 mg capsule 300 mg PO HS ferrous sulfate [FeroSul] 325 mg (65 mg iron) tablet 325 mg PO 3XWK Rx Instructions: monday and monday insulin degludec [Tresiba FlexTouch U-200] 200 unit/mL (3 mL) insulin pen 32 unit SUBCUT QAM furosemide 40 mg tablet 10 mg PO QAM Rx Instructions: hold if SBP < 110 levothyroxine 100 mcg tablet 100 mcg PO QAM Jardiance 25 mg tablet 25 mg PO QAM sulfamethoxazole-trimethoprim [Bactrim DS] 800-160 mg Tablet See Rx Instructions .ROUTE .COMPLEX Rx Instructions: per daughter a whole tab is too strong so she takes half a tab. Started on for 7 to 10 days lidocaine 5 % Adhesive Patch,Medicated 1 patch transdermal DIRECTED PRN (Reason: Pain) fluticasone propionate [Flonase] 50 mcg/actuation [place],Suspension 1 spray INTRANASAL DAILY PRN (Reason: Allergy Symptoms) Rx Instructions: administer into each nostril trolamine salicylate [Aspercreme] 10 % Cream 1 applic TOPICAL DAILY PRN (Reason: Pain) melatonin 2 gummy PO HS cranberry 500 mg Capsule 500 mg PO HS Referrals Referrals: Lizzie Vaca MD [Primary Care Provider] -
[2023-07-10 13:17] LABS: Alanine Aminotransferase 25 U/L (7-52); Albumin Globulin Ratio 1.6 (0.9-2); Albumin Level 3.6 gm/dl (3.4-5.0); Alkaline Phosphatase 113 U/L (34-104); Anion Gap 5 (3-11); Aspartate Aminotransferase 25 U/L (13-39); BUN Creatinine Ratio 21.9 (10-20); Bilirubin,Total 0.7 mg/dl (0.2-1.0); Blood Urea Nitrogen 30 mg/dl (6-23); Calcium 8.8 mg/dl (8.6-10.3); Carbon Dioxide 23 mmol/L (21-32); Chloride 107 mmol/L (98-107); Est GFR (African American) 40.4 ml/min; Est GFR (Non-African American) 34.8 ml/min; Globulin 2.2 gm/dl (2.5-4.0); Glucose 266 mg/dl (70-99(Fasting)); Potassium 4.3 mmol/L (3.5-5.1); Sodium 135 mmol/L (136-145); Total Protein 5.8 gm/dl (6.0-8.3)
[2023-07-10 13:20] LABS: Troponin I High Sensitivity 16.5 pg/ml (0-14)
[2023-07-10 13:37] LABS: Hemoglobin 5.2 g/dl (12.0-16.0); Mean Corpuscular Hemoglobin 24.6 pg (25.0-34.0); Mean Corpuscular Hgb Conc 28.9 g/dL (32.0-36.0); Mean Corpuscular Volume 85.3 fL (80.0-100.0); Mean Platelet Volume 11.7 fL (9.4-12.4); Platelet Count 66 K/uL (130-400); RDW Coefficient of Variation 17.3 % (11.5-14.5); RDW Standard Deviation 53.9 fL (36.4-46.3); Red Blood Count 2.11 M/uL (4.20-5.40); White Blood Count 3.65 K/ul (4.8-10.8)
[2023-07-10 13:38] LABS: Basophils # (auto) 0.01 K/uL (0.00-0.20); Basophils % (auto) 0.3 %; Eosinophils # (auto) 0.07 K/uL (0.00-0.50); Eosinophils % (auto) 1.9 %; Hypochromasia Present; Immature Granulocytes # (auto) 0.01 K/uL (0.01-0.20); Immature Granulocytes % (auto) 0.3 %; Lymphocytes # (auto) 0.74 K/uL (1.20-3.40); Lymphocytes % (auto) 20.3 %; Monocytes % (auto) 8.2 %; Neutrophils # (auto) 2.52 K/uL (1.40-6.50); Polychromasia 1+
[2023-07-10 13:46] LABS: INR 1.1 (0.9-1.1); Partial Thromboplastin Ratio 0.9; Partial Thromboplastin Time 26.5 Seconds (21.0-31.0); Prothrombin Time 11.5 Seconds (9.0-12.0)
[2023-07-10 14:01] LABS: D Dimer 620 ug/L FEU (0-500)
--- NOTE | 2023-07-10 14:04 | XRay Report ---
XR chest 1V not portable HISTORY: Chest pain, nonspecific COMPARISON: Chest CT 03/27/2023. FINDINGS: No pneumothorax. Trace bilateral pleural effusions. There is progressive interstitial/vascu lar thickening consistent with mild congestive change. A left subclavian vascular stent is noted. Mul tiple old, healed bilateral rib fractures. There are also multiple subacute/healing right-sided rib f ractures. The heart is normal in size. Hazy appearance of the right lateral lung base. This could be due to overlapping soft tissue or correspond to the area of scarring on the prior chest CT. IMPRESSION: 1. Mild congestive change and trace bilateral pleural effusions. This has progressed in the interval. 2. Hazy appearance to the periphery of the right lateral lung base. This may correspond to the area o f scarring on the prior chest CT. 3. Multiple subacute/healing right-sided rib fractures. No pneumothorax. ACT 112: Negative or not required by law. Electronically signed by: Sunday Enciso M.D. 07/10/2023 2:02 PM
[2023-07-10] MEDS ORDERED: FUROSEMIDE 40 MG/4 ML VIAL IV ONE (14:14)
[2023-07-10] MEDS ORDERED: diphenhydrAMINE 50 MG/ML VIAL IV STA (14:44)
[2023-07-10] MEDS ORDERED: ACETAMINOPHEN 1,000 MG/100 ML VIAL IV STA (14:45)
[2023-07-10] MEDS ORDERED: IOVERSOL 350 MG 125mL Prefilled Syringe IV ONE (15:14)
[2023-07-10 15:15] LABS: Adenovirus PCR Not Detected (NotDetected); Bordetella parapertussis PCR Not Detected (NotDetected); Bordetella pertussis PCR Not Detected (NotDetected); Chlamydia pneumoniae PCR Not Detected (NotDetected); Coronavirus 229E PCR Not Detected (NotDetected); Coronavirus CoV-2 (COVID19)PCR Not Detected (NotDetected); Coronavirus HKU1 PCR Not Detected (NotDetected); Coronavirus NL63 PCR Not Detected (NotDetected); Coronavirus OC43PCR Not Detected (NotDetected); Human Metapneumovirus PCR Not Detected (NotDetected); Influenza A PCR Not Detected (NotDetected); Influenza B PCR Not Detected (NotDetected); Mycoplasma pneumoniae PCR Not Detected (NotDetected); Parainfluenza Virus 1 PCR Not Detected (NotDetected); Parainfluenza Virus 2 PCR Not Detected (NotDetected); Parainfluenza Virus 3 PCR Not Detected (NotDetected); Parainfluenza Virus 4 PCR Not Detected (NotDetected); Respiratory Syncytial VirusPCR Not Detected (NotDetected); Rhinovirus/Enterovirus PCR Not Detected (NotDetected)
[2023-07-10] MEDS ORDERED: SODIUM CHLORIDE 0.9% 250 ML IV PRN (15:21)
--- NOTE | 2023-07-10 15:45 | CT Scan Report ---
CHEST CTA for PULMONARY ARTERIES CT DOSE: 533.00 mGy.cm HISTORY: Allergic reaction. Shortness of breath. TECHNIQUE: Multiaxial CT images of the chest were performed following the intravenous administration of contrast to evaluate the pulmonary arteries. 3D/Maximal intensity projection images were also obta ined. Sagittal and coronal reformations were also reviewed. A dose lowering technique was utilized a dhering to the principles of ALARA. COMPARISON STUDY: Chest CT 03/27/2023. FINDINGS: Artifact results in suboptimal evaluation of the chest. 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 These are similar to the prior study . Multiple healing and healed bilateral rib fractures. No definite acute rib fractures. A left subcla vian stent is noted and appears patent. 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 Advanced atherosclerotic plaque within the thoracic aorta. No evidence for an aortic dissection. The thoracic aorta is normal in caliber. The heart is mildly enlarged. No pericardial effusion. Trace ri ght pleural effusion is present. Nondiagnostic evaluation of the majority of the bilateral lower lobe , right middle lobe, and lingular pulmonary arteries due to the respiratory motion artifact. However, the remaining pulmonary arteries show no filling defects to suggest a pulmonary embolus. Normal peter piyush esophagus. Limited views the upper abdomen demonstrate a cirrhotic liver, trace perihepatic ascit es, and splenomegaly. The visualized adrenal glands appear unremarkable. Subcentimeter mediastinal ly mph nodes do not meet CT criteria for pathologic involvement. No pneumothorax. The central airways ap pear patent. Mild biapical pleural-parenchymal scarlike densities remain unchanged. There is interlob ular septal thickening consistent with mild pulmonary edema. This is new compared to the prior study. Stable peripheral scarlike density within the right lower lobe again noted. No new focal lung consol idations identified. IMPRESSION: 1. Suboptimal evaluation of the chest is motion artifact. No definite evidence for a pulmonary embolu s with limitations as described above. 2. Cardiomegaly with mild interstitial pulmonary edema and a trace right pleural effusion. 3. Multiple healed/healing fractures again noted within the chest. No pneumothorax. 4. Cirrhotic liver with trace perihepatic ascites and splenomegaly, unchanged. ACT 112: Negative or not required by law. Electronically signed by: Sunday Enciso M.D. 07/10/2023 3:42 PM
--- NOTE | 2023-07-10 16:18 | History & Physical Report ---
Date of Service July 10, 2023 Assessment & Plan (1) Shortness of breath: (2) Anemia requiring transfusions: (3) Acute exacerbation of CHF (congestive heart failure): Plan: Shortness of breath - likely multifactorial, secondary to pulm. vasc. congestion (mild CHF) and profound anemia w/ Hgb 5.2 Anemia - Hgb 5.2, 2 units of pRBC ordered in ED - pt denies any blood in stool or urine, no nausea or vomiting - consider CT abd pelvis w/ IV contrast (if renal function ok, as pt just had contrast w/ CT PE) - FOBT ordered - peripheral smear ordered - IV PPI ordered - per record, esophageal varices but no hx of bleeding - will consult GI in AM Pulm. vasc. congestion, mild CHF, cad biofire - negative BNP over 1000 troponin 16 + clear sputum, vasc. congestion on chest imaging received 40 IV lasix in ED, re-assess volume status tmrw monitor urine output monitor BMP, ordered for AM obtain Echo, repeat troponin cont. statin, hold asa, plavix d/t anemia - resume as soon as possible Consider consulting w/ cardiology if w/o improvement or if signif. changes on echo Chronic conditions Hypothyroidism - cont. home levothyroxine, will check TSH DM type 2 on insulin - on tresiba and jardiance - hold now, cont. w/ lantus while inpt, glycemic pharmacy consulted, check HgbA1c CKD stage 3, current Cr 1.37 - seems essentially at baseline - closely monitor B MP while diuresing PAD - hx of stents, on ASA and plavix, currently on hold d/t anemia, leg pain chronic, possibly worsening pain d/t profound anemia. cont. home gabapentin History of Present Illness Chief Complaint: shortness of breath, leg pain Primary Care Provider: Lizzie Vaca MD 87 yo F with DM type 2 on insulin, hypothyroidism, PAD, CAD, CKD stage 3 , infrarenal AAA, hx of c. diff ,esophageal varices (w/o known bleeding) and other problems listed below who presents w/ shortness of breath and leg pain. Patient says that her legs have been bothering her for years now, due to PAD, however in the past several days she has been more short of breath and having more pain in her legs. Denies any fevers chills, but reports some cough and clear sputum production for past few days. Currently denies any chest pain, but says that with exertion and when she feels short of breath she does have chest pain. D-dimer elevated in the ED, and CT PE obtained, study not ideal, but negative for PE per report. In the ED pt found anemic with Hgb 5.2 and pRBC ordered by ED provider. chest imaging w/ pulm. vasc. congestion, BNP over 1000 and pt received 40 IV lasix in the ED. Patient denies any blood in the stool, blood in urine. Denies abdominal pain. Reports history of C. difficile, but no recent diarrhea. No nausea or vomiting. Allergies Allergy/AdvReac Type Severity Reaction Status Date / Time vitamin E (d-alpha Allergy Intermediate ITCHY Unverified 01/01/22 16:17 tocopherol) RASH, HIVES--PER [facility] 09/21/21 ENCOUNTER amoxicillin AdvReac Intermediate STOMACH Unverified 01/01/22 16:17 UPSET--PER [facility] 09/21/21 ENCOUNTER baclofen AdvReac Intermediate Falls Unverified 07/10/23 16:09 clavulanic acid AdvReac Intermediate STOMACH Unverified 01/01/22 16:17 UPSET--PER [facility] 09/21/21 ENCOUNTER ropinirole AdvReac Intermediate Falls Unverified 07/10/23 16:09 tramadol AdvReac Intermediate Falls Unverified 07/10/23 16:09 dulaglutide [From [facility]] AdvReac Vomiting Verified 09/12/22 08:47 Home Medications Medication Instructions Recorded Confirmed Type aspirin 81 mg tablet,delayed 81 mg PO QAM 04/10/19 07/10/23 History release (Kendra Low Dose Aspirin) atorvastatin 20 mg tablet 20 mg PO QPM 04/10/19 07/10/23 History clopidogrel 75 mg tablet 75 mg PO QAM 04/10/19 07/10/23 History famotidine 40 mg tablet 40 mg PO DAILYBB 03/29/21 07/10/23 History ferrous sulfate 325 mg (65 mg 325 mg PO 3XWK 01/01/22 07/10/23 History iron) tablet (FeroSul) gabapentin 300 mg capsule 300 mg PO HS 01/01/22 07/10/23 History insulin degludec 200 unit/mL (3 32 unit subcut QAM 01/01/22 07/10/23 History mL) subcutaneous pen (Tresiba FlexTouch U-200 insulin) empagliflozin 25 mg tablet 25 mg PO QAM 09/12/22 07/10/23 History (Jardiance) furosemide 40 mg tablet 10 mg PO QAM 09/12/22 07/10/23 History levothyroxine 100 mcg tablet 100 mcg PO QAM 09/12/22 07/10/23 History cranberry 500 mg capsule 500 mg PO HS 07/10/23 07/10/23 History fluticasone propionate 50 1 spray intranasal DAILY PRN 07/10/23 07/10/23 History mcg/actuation nasal Allergy Symptoms spray,suspension lidocaine 5 % topical patch 1 patch transdermal DIRECTED 07/10/23 07/10/23 Hi story PRN Pain melatonin 2 gummy PO HS 07/10/23 07/10/23 History sulfamethoxazole 800 See Rx Instructions .Route .COMPLEX 07/10/23 07/10/23 History mg-trimethoprim 160 mg tablet (Bactrim DS) trolamine salicylate 10 % topical 1 applic topical DAILY PRN Pain 07/10/23 07/10/23 History cream (Aspercreme) Past Med/Surg History Medical History Acute metabolic encephalopathy EARL (acute kidney injury) Anemia Aneurysm of infrarenal abdominal aorta Aneurysm of infrarenal abdominal aorta Atrial fibrillation with rapid ventricular response Chest pain Cholelithiasis Cholelithiasis Cirrhosis Cirrhosis Cirrhosis CKD (chronic kidney disease) stage 3, GFR 30-59 ml/min CKD (chronic kidney disease), stage III COPD (chronic obstructive pulmonary disease) COPD (chronic obstructive pulmonary disease) Diabetes mellitus, type II Disorder of acid-base balance DM II (diabetes mellitus, type II), controlled DVT prophylaxis Emphysema Fall GERD (gastroesophageal reflux disease) GI bleed Graves disease History of acute renal failure History of Graves' disease HLD (hyperlipidemia) HTN (hypertension) Hypertension Hypoglycemic episode in patient with diabetes mellitus Hypothyroid Hypothyroidism Metabolic acidosis PAD (peripheral artery disease) PAD (peripheral artery disease) PAF (paroxysmal atrial fibrillation) Pancytopenia Pneumonia Sepsis Sinus bradycardia Thrombocytopenia Type 2 diabetes mellitus Surgical History History of appendectomy History of intravascular stent placement Reported Left subclavian, superior mesenteric artery, L iliac, L fempop bypass - Dr Andrade [facility], [place], [facility] Family History Other Diabetes Hypertension Social History Smoking Status: Former smoker Hx Alcohol Use: Yes Alcohol Intake Frequency: Monthly or Less Alcohol Intake Frequency Comment: Holidays Hx Substance Use: No Preferred Language: Israeli Communication Ability: Effective 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 Beliefs That Will Affect Care: L[employer] Day marital status: Current Living Situation: Alone Current Living Situation Comment: unable to determine How many Children do You have: 3 Feels Safe at Home: Yes Assistive Devices: Walker Review of Systems Review of Systems: All systems reviewed & are unremarkable except as noted in HPI & below Physical Exam Constitutional: WD/WN, vitals as above Eyes: PERRL, conjunctivae normal, anicteric sclerae ENMT: external ear and nose normal, oropharynx normal Neck: trachea midline, no thyromegaly Respiratory: Auscultation: + crackles (no wheezing, breathing on RA saturating 95%) Cardiovascular: Rate/Rhythm: regular rate and regular rhythm (1+ LE edema) Gastrointestinal (Abdomen): Inspection/Auscultation: abdomen normal to inspection (soft, nontender to palp. + bowel sounds) Musculoskeletal: no cyanosis or clubbing, extremities motor strength 5/5 Skin: no rashes, warm and dry Neurologic: PERRL, EOMI, accommodation nl, no face palsy, no dysarthria Psychiatric: A+Ox3, euthymic affect Results & Data Results & Data Vital Signs (Past 12 Hours) Vital Signs Temp Pulse Pulse Resp BP BP Pulse Ox 07/10/23 15:59 36.5 C 90 18 171/66 H 97 07/10/23 15:00 99 H 16 99/69 L 97 07/10/23 13:34 81 07/10/23 13:30 96 07/10/23 13:30 80 16 140/50 L 96 07/10/23 13:30 93 07/10/23 12:20 36.8 C 73 18 168/126 H 97 O2 Del Method 07/10/23 15:59 07/10/23 15:00 Room Air 07/10/23 13:34 07/10/23 13:30 Room Air 07/10/23 13:30 Room Air 07/10/23 13:30 Room Air 07/10/23 12:20 Room Air Laboratory Results 07/10/23 07/10/23 07/10/23 Range/Units 14:12 14:07 12:42 WBC (4.8-10.8) K/ul RBC (4.20-5.40) M/uL Hgb (12.0-16.0) g/dl Hct (37.0-47.0) % MCV (80.0-100.0) fL MCH (25.0-34.0) pg MCHC (32.0-36.0) g/dL RDW Std Deviation (36.4-46.3) fL RDW Coeff of Daniela (11.5-14.5) % Plt Count (130-400) K/uL MPV (9.4-12.4) fL Immature Gran % (Auto) % Neut % (Auto) % Lymph % (Auto) % [place] % (Auto) % Eos % (Auto) % Baso % (Auto) % Neut # (Auto) (1.40-6.50) K/uL Lymph # (Auto) (1.20-3.40) K/uL [place] # (Auto) (0.11-0.59) K/uL Eos # (Auto) (0.00-0.50) K/uL Baso # (Auto) (0.00-0.20) K/uL Immature Gran # (Auto) (0.01-0.20) K/uL Polychromasia Hypochromasia PT (9.0-12.0) Seconds INR (0.9-1.1) APTT (21.0-31.0) Seconds PTT Ratio D-Dimer (0-500) ug/L FEU Sodium (136-145) mmol/L Potassium (3.5-5.1) mmol/L Chloride (98-107) mmol/L Carbon Dioxide (21-32) mmol/L Anion Gap (3-11) BUN (6-23) mg/dl Creatinine (0.6-1.2) mg/dl Est Cr Clr Drug Dosing Est GFR ( Amer) ml/min Est GFR (Non-Af Amer) ml/min BUN/Creatinine Ratio (10-20) Glucose (70-99(Fasting)) mg/dl Calcium (8.6-10.3) mg/dl Total Bilirubin (0.2-1.0) mg/dl AST (13-39) U/L ALT (7-52) U/L Alkaline Phosphatase (34-104) U/L Troponin I High Sens (0-14) pg/ml B-Natriuretic Peptide 1084 H (0-100) pg/ml Total Protein (6.0-8.3) gm/dl Albumin (3.4-5.0) gm/dl Globulin (2.5-4.0) gm/dl Albumin/Globulin Ratio (0.9-2) Adenovirus (PCR) Not Detected (NotDetected) B. pertussis DNA (PCR) Not Detected (NotDetected) B.parapertussis DNA PCR Not Detected (NotDetected) C. pneumoniae DNA (PCR) Not Detected (NotDetected) Coronavirus OC43 (PCR) Not Detected (NotDetected) Coronavirus HKU1 (PCR) Not Detected (NotDetected) Coronavirus 229E (PCR) Not Detected (NotDetected) SARS-CoV-2 (PCR) Not Detected (NotDetected) Coronavirus NL63 (PCR) Not Detected (NotDetected) Human Metapneumovir PCR Not Detected (NotDetected) Influenza Type A (PCR) Not Detected (NotDetected) Influenza Type B (PCR) Not Detected (NotDetected) M. pneumoniae (PCR) Not Detected (NotDetected) Parainfluenza 1 (PCR) Not Detected (NotDetected) Parainfluenza 2 (PCR) Not Detected (NotDetected) Parainfluenza 3 (PCR) Not Detected (NotDetected) Parainfluenza 4 (PCR) Not Detected (NotDetected) RSV (PCR) Not Detected (NotDetected) Entero/Rhino (PCR) Not Detected (NotDetected) Blood Type B Positive Antibody Screen NEGATIVE Crossmatch See Detail 07/10/23 07/10/23 07/10/23 Range/Units 12:42 12:42 12:42 WBC 3.65 L (4.8-10.8) K/ul RBC 2.11 L (4.20-5.40) M/uL Hgb 5.2 L* (12.0-16.0) g/dl Hct 18.0 L* (37.0-47.0) % MCV 85.3 (80.0-100.0) fL MCH 24.6 L (25.0-34.0) pg MCHC 28.9 L (32.0-36.0) g/dL RDW Std Deviation 53.9 H (36.4-46.3) fL RDW Coeff of Daniela 17.3 H (11.5-14.5) % Plt Count 66 L (130-400) K/uL MPV 11.7 (9.4-12.4) fL Immature Gran % (Auto) 0.3 % Neut % (Auto) 69.0 % Lymph % (Auto) 20.3 % [place] % (Auto) 8.2 % Eos % (Auto) 1.9 % Baso % (Auto) 0.3 % Neut # (Auto) 2.52 (1.40-6.50) K/uL Lymph # (Auto) 0.74 L (1.20-3.40) K/uL [place] # (Auto) 0.30 (0.11-0.59) K/uL Eos # (Auto) 0.07 (0.00-0.50) K/uL Baso # (Auto) 0.01 (0.00-0.20) K/uL Immature Gran # (Auto) 0.01 (0.01-0.20) K/uL Polychromasia 1+ Hypochromasia Present PT 11.5 (9.0-12.0) Seconds INR 1.1 (0.9-1.1) APTT 26.5 (21.0-31.0) Seconds PTT Ratio 0.9 D-Dimer 620 H* (0-500) ug/L FEU Sodium 135 L (136-145) mmol/L Potassium 4.3 (3.5-5.1) mmol/L Chloride 107 (98-107) mmol/L Carbon Dioxide 23 (21-32) mmol/L Anion Gap 5 (3-11) BUN 30 H (6-23) mg/dl Creatinine 1.37 H (0.6-1.2) mg/dl Est Cr Clr Drug Dosing Not Reportable Est GFR ( Amer) 40.4 ml/min Est GFR (Non-Af Amer) 34.8 ml/min BUN/Creatinine Ratio 21.9 H (10-20) Glucose 266 H (70-99(Fasting)) mg/dl Calcium 8.8 (8.6-10.3) mg/dl Total Bilirubin 0.7 (0.2-1.0) mg/dl AST 25 (13-39) U/L ALT 25 (7-52) U/L Alkaline Phosphatase 113 H (34-104) U/L Troponin I High Sens 16.5 H (0-14) pg/ml B-Natriuretic Peptide (0-100) pg/ml Total Protein 5.8 L (6.0-8.3) gm/dl Albumin 3.6 (3.4-5.0) gm/dl Globulin 2.2 L (2.5-4.0) gm/dl Albumin/Globulin Ratio 1.6 (0.9-2) Adenovirus (PCR) (NotDetected) B. pertussis DNA (PCR) (NotDetected) B.parapertussis DNA PCR (NotDetected) C. pneumoniae DNA (PCR) (NotDetected) Coronavirus OC43 (PCR) (NotDetected) Coronavirus HKU1 (PCR) (NotDetected) Coronavirus 229E (PCR) (NotDetected) SARS-CoV-2 (PCR) (NotDetected) Coronavirus NL63 (PCR) (NotDetected) Human Metapneumovir PCR (NotDetected) Influenza Type A (PCR) (NotDetected) Influenza Type B (PCR) (NotDetected) M. pneumoniae (PCR) (NotDetected) Parainfluenza 1 (PCR) (NotDetected) Parainfluenza 2 (PCR) (NotDetected) Parainfluenza 3 (PCR) (NotDetected) Parainfluenza 4 (PCR) (NotDetected) RSV (PCR) (NotDetected) Entero/Rhino (PCR) (NotDetected) Blood Type Antibody Screen Crossmatch Diagnostic Findings CXR IMPRESSION: 1. Mild congestive change and trace bilateral pleural effusions. This has progressed in the interval. 2. Hazy appearance to the periphery of the right lateral lung base. This may correspond to the area of scarring on the prior chest CT. 3. Multiple subacute/healing right-sided rib fractures. No pneumothorax. CT PE IMPRESSION: 1. Suboptimal evaluation of the chest is motion artifact. No definite evidence for a pulmonary embolus with limitations as described above. 2. Cardiomegaly with mild interstitial pulmonary edema and a trace right pleural effusion. 3. Multiple healed/healing fractures again noted within the chest. No pneumothorax. 4. Cirrhotic liver with trace perihepatic ascites and splenomegaly, unchanged.
[2023-07-10 16:50] LABS: Magnesium 2.1 mg/dl (1.7-2.4)
[2023-07-10] MEDS ORDERED: PHARMACY GLYCEMIC MGMT CONSULT PRN (16:57)
[2023-07-10] MEDS ORDERED: SULFAMETHOXAZOLE/TRIMETHOPRIM DS 800/160MG TAB PO SCH (19:40)
[2023-07-10] MEDS ORDERED: TROLAMINE SALICYLATE 10% CRM 255 APPLN/85 GM TUBE EXT PRN (19:40)
[2023-07-10] MEDS: ATORVASTATIN 20 MG TAB PO SCH (20:51)
[2023-07-10] MEDS: GABAPENTIN 300 MG CAP PO SCH (20:51)
[2023-07-10] MEDS: MELATONIN 3 MG TAB PO SCH (20:51)
[2023-07-10] MEDS ORDERED: diphenhydrAMINE 2%/ZINC 0.1% CREAM 28.4GM TUBE EXT STA (22:23)
[2023-07-10 23:40] LABS: Hematocrit (blood only) 25.5 % (37.0-47.0); Mean Corpuscular Hemoglobin 26.4 pg (25.0-34.0); Mean Corpuscular Hgb Conc 31.4 g/dL (32.0-36.0); Mean Corpuscular Volume 84.2 fL (80.0-100.0); Platelet Count 50 K/uL (130-400); RDW Coefficient of Variation 16.7 % (11.5-14.5); RDW Standard Deviation 51.3 fL (36.4-46.3); Red Blood Count 3.03 M/uL (4.20-5.40); White Blood Count 3.84 K/ul (4.8-10.8)
[2023-07-11] MEDS: PANTOprazole 40 MG in DEXTROSE 5% 100 ML IV SCH ×3 (00:09→11:12)
[2023-07-11] MEDS ORDERED: DEXTROSE 50% 50 ML SYRINGE IV PRN (01:01)
[2023-07-11] MEDS ORDERED: GLUCOSE 40% GEL 15 GM TUBE PO PRN (01:01)
[2023-07-11] MEDS ORDERED: GLUCOSE 10 TAB/TUBE PO PRN (01:01)
[2023-07-11] MEDS ORDERED: GLUCAGON FOR INJ 1 MG VIAL SQ PRN (01:01)
[2023-07-11] MEDS ORDERED: DEXTROSE 50% 50 ML SYRINGE IV STA (01:02)
[2023-07-11] MEDS: INSULIN ASPART PER UNIT CHARGE SC SCH ×5 (02:03→22:35)
[2023-07-11 05:05] LABS: Hematocrit (blood only) 27.2 % (37.0-47.0); Hemoglobin 8.5 g/dl (12.0-16.0); Mean Corpuscular Hemoglobin 26.2 pg (25.0-34.0); Mean Corpuscular Hgb Conc 31.3 g/dL (32.0-36.0); Mean Corpuscular Volume 83.7 fL (80.0-100.0); Mean Platelet Volume 11.9 fL (9.4-12.4); Platelet Count 49 K/uL (130-400); RDW Coefficient of Variation 16.6 % (11.5-14.5); RDW Standard Deviation 50.8 fL (36.4-46.3); Red Blood Count 3.25 M/uL (4.20-5.40); White Blood Count 3.64 K/ul (4.8-10.8)
[2023-07-11 05:32] LABS: Albumin Globulin Ratio 1.7 (0.9-2); Albumin Level 3.3 gm/dl (3.4-5.0); BUN Creatinine Ratio 19.7 (10-20); Bilirubin,Total 2.1 mg/dl (0.2-1.0); Calcium 8.9 mg/dl (8.6-10.3); Creatinine Clr Calc Pharmacy 25.8 ml/min; Est GFR (African American) 40.4 ml/min; Est GFR (Non-African American) 34.8 ml/min; Globulin 1.9 gm/dl (2.5-4.0); Magnesium 2.1 mg/dl (1.7-2.4); Phosphorus 3.8 mg/dl (2.5-4.9); Potassium 3.8 mmol/L (3.5-5.1); Total Protein 5.2 gm/dl (6.0-8.3)
[2023-07-11 05:38] LABS: Thyroid Stimulating Hormone 0.155 uIu/ml (0.300-4.500)
[2023-07-11 06:15] LABS: T4 Free Thyroxine 1.02 ng/dl (0.61-1.60)
[2023-07-11 06:57] LABS: Estimated Average Glucose 154 mg/dl
[2023-07-11] MEDS: LEVOTHYROXINE SODIUM 100 MCG TABLET PO SCH (07:36)
[2023-07-11] MEDS ORDERED: LIDOCAINE 5% 1 PATCH TD PRN (09:00)
[2023-07-11] MEDS ORDERED: NON-FORMULARY MEDICATION (Insulin Degludec [Tresiba Flextouch U-200] 200 unit/mL (3 mL) in SQ SCH (09:00)
--- NOTE | 2023-07-11 10:52 | Gastrointestinal Consultation ---
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 BNP and Ddimer up, no PE on CT. No gross GI bleeding, though stools may be black in color on days she takes oral iron supplement. On Plavix for PAD, no NSAIDs, tobacco/ETOH products. - Monitor blood ct and transfuse prn for goal hgb >7 - PPI IV bid - Discussed endoscopic workup to r/o GI bleeding source which can explain her anemia. She is not keen on having EGD or colonoscopy done. We will monitor her symptoms and trend her labs in the next 24hrs, make her NPO after midnight and will re-consider at least an EGD evaluation of her blood ct drops or if she's displaying gross gi bleeding s/s - Avoid NSAIDs, no APAP >2g daily - Will arrange f/u in GI clinic upon her DC Supervising Physician Co-Signing Physician Notes I personally saw and evaluated the patient on 07/11/2023 with ADAM Lopez and agree with her findings and plan of care. Patient presented with anemia with hgb of 5 from baseline of 11-12. Previously hgb was 7 in March. She reports her stools alternate colors stating "i take my iron every other day so the day i take my iron stools are black and the following day they are brown." She denies any hematochezia or hematemesis but reports intermittent black stools. I discussed with patient about pursuing EGD tomorrow but she is refusing endoscopy at this time. She states she is not keen on getting "any more scopes put into me" and does not want anything. I did expl ain that we should trend her H/H for 24 hours and if it drops tomorrow we can go ahead and do an EGD but she again stated she does not want this. She has a history of grade I EV and PHG from her underlying cirrhosis. at this time recommend trending H/H and transfusing for hgb <7. PPI 40 mg BID, octreotide gtt, and ceftriaxone for SBP prophylaxis. NPO at midnight. If patient agreeable we can pursue EGD tomorrow but at this time she does not want any endoscopy. Laura Jiménez, DO Gastroenterology and Hepatology History of Present Illness Reason for Consultation: Anemia, possible GI bleed Requesting Physician: Dr. Ed Licea Attending Physician: Dr. Laura Jiménez History of Present Illness Patient is a 89 years old female with past medical history of diabetes mellitus type 2, hypothyroidism, PAD, CAD, CKD 3, AAA, history of C. 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 During her work-up she was noted to have elevated D-dimer but CTPA negative, signs of pulmonary vascular congestion with BNP of over 1000, also anemic with hemoglobin of 5. She was given 2 units of PRBC transfusion with good response in blood count, currently hemoglobin is 8.1. Patient takes oral iron supplements every other day. Reports that depending on what she eats and during the day she takes her iron her stools been black in color and sticky. However on the days she does not take her iron supplement, her stools color are normal brown. She denies any abdominal pain, nausea or vomiting. She denies any rectal bleeding. Patient's last EGD was in 2021 with findings of nonbleeding Grade I esophageal varices, portal hypertensive gastropathy. She reportedly had 1 prior colonoscopy in the past but not sure when, states that findings were at that point normal. Denies any family history of colorectal cancer. Allergies Allergy/AdvReac Type Severity Reaction Status Date / Time vitamin E (d-alpha Allergy Intermediate ITCHY Unverified 01/01/22 16:17 tocopherol) RASH, HIVES--PER [facility] 09/21/21 ENCOUNTER amoxicillin AdvReac Intermediate STOMACH Unverified 01/01/22 16:17 UPSET--PER [facility] 09/21/21 ENCOUNTER baclofen AdvReac Intermediate Falls Unverified 07/10/23 16:09 clavulanic acid AdvReac Intermediate STOMACH Unverified 01/01/22 16:17 UPSET--PER [facility] 09/21/21 ENCOUNTER ropinirole AdvReac Intermediate Falls Unverified 07/10/23 16:09 tramadol AdvReac Intermediate Falls Unverified 07/10/23 16:09 dulaglutide [From [facility]] AdvReac Vomiting Verified 09/12/22 08:47 Home Medications Medication Instructions Recorded Confirmed Type aspirin 81 mg tablet,delayed 81 mg PO QAM 04/10/19 07/10/23 History release (Kendra Low Dose Aspirin) atorvastatin 20 mg tablet 20 mg PO QPM 04/10/19 07/10/23 History clopidogrel 75 mg tablet 75 mg PO QAM 04/10/19 07/10/23 History famotidine 40 mg tablet 40 mg PO DAILYBB 03/29/21 07/10/23 History ferrous sulfate 325 mg (65 mg 325 mg PO 3XWK 01/01/22 07/10/23 History iron) tablet (FeroSul) gabapentin 300 mg capsule 300 mg PO HS 01/01/22 07/10/23 History insulin degludec 200 unit/mL (3 32 unit subcut QAM 01/01/22 07/10/23 History mL) subcutaneous pen (Tresiba FlexTouch U-200 insulin) empagliflozin 25 mg tablet 25 mg PO QAM 09/12/22 07/10/23 History (Jardiance) furosemide 40 mg tablet 10 mg PO QAM 09/12/22 07/10/23 History levothyroxine 100 mcg tablet 100 mcg PO QAM 09/12/22 07/10/23 History cranberry 500 mg capsule 500 mg PO HS 07/10/23 07/10/23 History fluticasone propionate 50 1 spray intranasal DAILY PRN 07/10/23 07/10/23 History mcg/actuation nasal Allergy Symptoms spray,suspension lidocaine 5 % topical patch 1 patch transdermal DIRECTED 07/10/23 07/10/23 History PRN Pain melatonin 2 gummy PO HS 07/10/23 07/10/23 History sulfamethoxazole 800 See Rx Instructions .Route .COMPLEX 07/10/23 07/10/23 History mg-trimethoprim 160 mg tablet (Bactrim DS) trolamine salicylate 10 % topical 1 applic topical DAILY PRN Pain 07/10/23 07/10/23 History cream (Aspercreme) Patient History Medical History Acute metabolic encephalopathy EARL (acute kidney injury) Anemia Aneurysm of infrarenal abdominal aorta Aneurysm of infrarenal abdominal aorta Atrial fibrillation with rapid ventricular response Chest pain Cholelithiasis Cholelithiasis Cirrhosis Cirrhosis Cirrhosis CKD (chronic kidney disease) stage 3, GFR 30-59 ml/min CKD (chronic kidney disease), stage III COPD (chronic obstructive pulmonary disease) COPD (chronic obstructive pulmonary disease) Diabetes mellitus, type II Disorder of acid-base balance DM II (diabetes mellitus, type II), controlled DVT prophylaxis Emphysema Fall GERD (gastroesophageal reflux disease) GI bleed Graves disease History of acute renal failure History of Graves' disease HLD (hyperlipidemia) HTN (hypertension) Hypertension Hypoglycemic episode in patient with diabetes mellitus Hypothyroid Hypothyroidism Metabolic acidosis PAD (peripheral artery disease) PAD (peripheral artery disease) PAF (paroxysmal atrial fibrillation) Pancytopenia Pneumonia Sepsis Sinus bradycardia Thrombocytopenia Type 2 diabetes mellitus Surgical History History of appendectomy History of intravascular stent placement Reported Left subclavian, superior mesenteric artery, L iliac, L fempop bypass - Dr Andrade [facility] Family History Other Diabetes Hypertension Social History Smoking Status: Former smoker Hx Alcohol Use: Yes Alcohol Intake Frequency: Monthly or Less Alcohol Intake Frequency Comment: Holidays Hx Substance Use: No Preferred Language: Tamazight Communication Ability: Effective 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 Beliefs That Will Affect Care: None marital status: Current Living Situation: Alone Current Living Situation Comment: unable to determine How many Children do You have: 3 Feels Safe at Home: Yes Safety Concerns: Feels Safe At This Time Assistive Devices: Bedside Commode and Wheelchair Review of Systems Review of Systems: All systems reviewed & are unremarkable except as noted in HPI & below Physical Exam Constitutional: WD/WN, vitals as above well groomed, cooperative and comfortable Eyes: PERRL, conjunctivae normal, anicteric sclerae ENMT: external ear and nose normal, oropharynx normal Respiratory: normal respiratory effort, lungs clear to auscultation Cardiovascular: RRR, no murmur, no edema Gastrointestinal (Abdomen): normal bowel sounds, soft, nontender, no hepatosplenomegaly Skin: + rash (on legs L > R ); no jaundice Neurologic: Motor/Sensory: no asterixis Psychiatric: A+Ox3, euthymic affect Lymphatic: no lymphedema Results & Data Vital Signs (Past 12 Hours) Vital Signs Pulse Resp BP Pulse Ox O2 Del Method 07/11/23 08:52 Room Air 07/11/23 08:46 64 16 134/64 Room Air 07/11/23 05:21 60 18 130/73 97 Room Air 07/11/23 02:14 60 13 138/58 L 95 Room Air
--- NOTE | 2023-07-11 12:32 | Pharmacy Report ---
Pharmacy Glycemic Short Note 2 - Date of Service July 11, 2023 - Glycemic Short BSG Results (Last 24 hours): 07/10/23 07/10/23 07/11/23 12:42 19:41 00:55 Glucose 266 H POC Glucose 83 67 L* 07/11/23 07/11/23 07/11/23 01:32 04:44 05:31 Glucose 66 L POC Glucose 128 H 66 L* 07/11/23 07/11/23 06:13 11:42 Glucose POC Glucose 125 H 76 OUTPATIENT ANTIDIABETIC REGIMEN: * Tresiba 32units SQ qAM * empagliflozin 25mg PO dailiy HbA1C: 7% ASSESSMENT: * Patient is an 87 year old female admitted with anemia and mild CHF exacerbation. History of DM 2 on insulin and oral medications at home. Pharmacy consulted to assist with glycemic management while inpatient. * BSGs have been low requiring hypoglycemia treatment since arrival, likely due to NPO status (64-94-75-76mg/dL). * Currently ordered clear liquid diet with plan for NPO after midnight for possible EGD. * Continue to hold basal for now and monitor advancement of diet. Novolog q6 with correctional insulin only given lows. Will re-initiate carb coverage once consistent increase in PO intake. PLAN FOR INPATIENT GLYCEMIC CONTROL: * Hold outpatient oral diabetes medications * Basal insulin * hold * Bolus insulin * NovoLog per scale ACHS or Q6hrs while NPO * Goal Range: Low 120 mg/dL - High 160 mg/dL * Correction Factor: 50 mg/dL/unit * Nutritional / Prandial insulin per carb ratio of 1 unit per - grams CHO consumed
--- NOTE | 2023-07-11 13:50 | Hospitalist Progress Note ---
Date of Service July 11, 2023 Assessment & Plan (1) Shortness of breath: Plan: Symptomatic anemia and is complicated by mild CHF as below CTA did not show any evidence of pulmonary embolism or any other significant findings in the abdomen Did show cirrhotic liver with trace perihepatic ascites and splenomegaly which are unchanged from prior examination (2) Anemia requiring transfusions: Plan: Secondary to GI bleed History of NAFLD cirrhosis and also grade 1 esophageal varices and portal hypertensive gastropathy on EGD in 2021 - Hgb 5.2 on presentation, -Received 2 units of pRBC on admission -No history of hematemesis and or bright red blood per rectum - FOBT ordered - peripheral smear ordered-unremarkable -Has been on Protonix drip and will be continued -Appreciate GI input and recommendation -Monitor CBC and if hemoglobin drops will have EGD tomorrow and the patient will be n.p.o. after midnight today -Clinically better this morning (3) Acute exacerbation of CHF (congestive heart failure): Plan: Chest x-ray is consistent with mild congestive change with minimal bilateral pleural effusion BNP was more than 1000 and troponin 16 Received 40 mg of intravenous Lasix in the emergency room Clinically much better and remains 310 mL of positive balance as of today even after 2 units of blood transfusion Echo is pending Aspirin and Plavix are on hold We will continue current medications Chronic conditions Hypothyroidism - cont. home levothyroxine, TSH is minimally low at 0.155 Will need to repeat TSH in about a few weeks before changing replacement dose of levothyroxine DM type 2 on insulin - on tresiba and jardiance - hold now, cont. w/ lantus while inpt, glycemic pharmacy consulted, Appreciate glycemic pharmacist involvement Hemoglobin A1c 7.0 CKD stage 3, current Cr 1.37 - seems essentially at baseline - closely monitor BMP while diuresing Creatinine remains elevated at 1.37-likely elevation is due to use of contrast Advised to drink more fluid-will not give any IV fluid because of mild congestion the chest x-ray PAD - hx of stents, on ASA and plavix, currently on hold d/t anemia, leg pain chronic, possibly worsening pain d/t profound anemia. cont. home gabapentin DVT prophylaxis SCDs for now Aspirin and Plavix are on hold due to GI bleed CODE STATUS DNR/DNI Admission and Anticipated Discharge Date Admission Date: July 10, 2023 Subjective 07/11/2023 The patient was seen and examined in ICU She has been feeling much better following 2 units of blood transfusion No evidence of hematemesis and/or any abdominal pain Generally weak but denies any other significant symptoms Review of Systems Review of Systems: All systems reviewed and are unremarkable except as noted below Physical Exam Physical Exam: Lying in bed comfortably Constitutional: + ill appearing and + thin Eyes: PERRL, conjunctivae normal, anicteric sclerae ENMT: external ear and nose normal, oropharynx normal Neck: trachea midline, no thyromegaly Respiratory: no respiratory distress Auscultation: + diminished lung sounds and + crackles (Minimal crackles at the bases) Cardiovascular: Rate/Rhythm: regular rate and regular rhythm; not tachycardic Heart Sounds: normal S1, normal S2 and + murmur Extremities: + edema (1+ edema bilaterally) Gastrointestinal (Abdomen): Inspection/Auscultation: normal bowel sounds; abdomen not distended Percussion/Palpation: abdomen soft; abdomen nontender Musculoskeletal: No acute arthritis involving any joint Neurologic: .Alert, awake and oriented x 3. generally weak but no focal neurodeficit Lymphatic: no cervical or axillary lymphadenopathy Results & Data Results & Data Vital Signs (Past 12 Hours) Vital Signs Temp Pulse Resp BP Pulse Ox O2 Del Method 07/11/23 13:03 36.8 C 63 16 115/38 L 95 Room Air 07/11/23 08:52 Room Air 07/11/23 08:46 64 16 134/64 Room Air 07/11/23 05:21 60 18 130/73 97 Room Air 07/11/23 02:14 60 13 138/58 L 95 Room Air Laboratory Results Short CBC 07/10/23 07/11/23 Range/Units 23:14 04:44 WBC 3.84 L 3.64 L (4.8-10.8) K/ul Hgb 8.0 L 8.5 L (12.0-16.0) g/dl Hct 25.5 L 27.2 L (37.0-47.0) % Plt Count 50 L 49 L (130-400) K/uL BMP 07/11/23 04:44 Sodium 139 Potassium 3.8 Chloride 110 H Carbon Dioxide 26 BUN 27 H Creatinine 1.37 H Glucose 66 L Calcium 8.9 Liver Function 07/11/23 Range/Units 04:44 Total Bilirubin 2.1 H D (0.2-1.0) mg/dl AST 22 (13-39) U/L ALT 20 (7-52) U/L Alkaline Phosphatase 102 (34-104) U/L Albumin 3.3 L (3.4-5.0) gm/dl Medications Administered Current Inpatient Medications Atorvastatin Calcium (Atorvastatin 20 Mg Tab) 20 mg PO QPM AAKASH Stop: 08/09/23 20:59 Last Admin: 07/10/23 20:51 Dose: 20 mg Dextrose (Dextrose 50% 50 Ml Syringe) 25 - 50 ml IV UD PRN; Protocol PRN Reason: Hypoglycemia Protocol Stop: 08/10/23 01:00 Last Admin: 07/11/23 05:37 Dose: 25 ml Gabapentin (Gabapentin 300 Mg Cap) 300 mg PO HS AAKASH Stop: 08/09/23 20:59 Last Admin: 07/10/23 20:51 Dose: 300 mg Glucagon (Glucagon For Inj 1 Mg Vial) 1 mg SQ UD PRN; Protocol PRN Reason: Hypoglycemia Protocol Stop: 08/10/23 01:00 Glucose (Glucose 10 Tab/Tube) 4 - 8 tab PO UD PRN; Protocol PRN Reason: Hypoglycemia Treatment Stop: 08/10/23 01:00 Glucose (Glucose 40% Gel 15 Gm Tube) 15 - 30 gm PO UD PRN; Protocol PRN Reason: Hypoglycemia Protocol Stop: 08/10/23 01:00 Pantoprazole Sodium 40 mg/ (Syringe) 10 mls @ 5 mls/min IV BID AAKASH Stop: 08/10/23 20:59 Insulin Aspart (Insulin Aspart Per Unit Charge) 0 units SC Q6 AAKASH Stop: 08/10/23 00:00 Last Admin: 07/11/23 11:43 Dose: Not Given Levothyroxine Sodium (Levothyroxine Sodium 100 Mcg Tablet) 100 mcg PO DAILYBB AAKASH Stop: 08/10/23 06:29 Last Admin: 07/11/23 07:36 Dose: 100 mcg Lidocaine (Lidocaine 5% 1 Patch) 1 patch TD DAILY PRN PRN Reason: Pain Stop: 08/10/23 08:59 Melatonin (Melatonin 3 Mg Tab) 3 mg PO HS AAKASH Stop: 08/09/23 20:59 Last Admin: 07/10/23 20:51 Dose: 3 mg Miscellaneous (Remove Lidoderm Patch) 1 each N/A DAILY@2100 [facility] Stop: 08/09/23 20:59 Last Admin: 07/11/23 07:26 Dose: 1 each Miscellaneous (Carbohydrates For Hypoglycemia ) 15 - 30 gm PO UD PRN PRN Reason: Hypoglycemia Protocol Stop: 08/10/23 01:00 Miscellaneous Information (Pharmacy Glycemic Mgmt Consult) 1 each N/A UD PRN; Protocol PRN Reason: Consult Stop: 08/09/23 16:56 Trolamine Salicylate (Trolamine Salicylate 10% Crm 255 Appln/85 Gm Tube) 1 appln EXT DAILY PRN PRN Reason: Pain Stop: 08/09/23 19:39
[2023-07-11] MEDS: CARBOHYDRATES FOR HYPOGLYCEMIA PO PRN (16:25)
--- NOTE | 2023-07-11 18:45 | Electrocardiogram Report ---
Test Reason : Blood Pressure : / mmHG Vent. Rate : 074 BPM Atrial Rate : 074 BPM P-R Int : 196 ms QRS Dur : 088 ms QT Int : 422 ms P-R-T Axes : 039 -19 099 degrees QTc Int : 468 ms Sinus rhythm with occasional Premature ventricular complexes Nonspecific ST and T wave abnormality Abnormal ECG When compared with ECG of 27-MAR-2023 09:29, Premature ventricular complexes are now Present Confirmed by Nba Matta ([id number]) on 07/11/2023 6:45:20 PM Referred By: REFERRED SELF Confirmed By:Carlos Alberto Matta
[2023-07-11] MEDS ORDERED: OCTREOTIDE ACETATE 50 MCG in SYRINGE 9.5 ML IV STA (20:34)
[2023-07-11] MEDS ORDERED: STAT IV STA (20:34)
[2023-07-11] MEDS ORDERED: diphenhydrAMINE Capsule 25 MG CAP PO ONE (20:58)
[2023-07-11] MEDS ORDERED: cefTRIAXone SODIUM 1,000 MG in DEXTROSE 5% 50 ML IV SCH (21:00)
[2023-07-11] MEDS: ATORVASTATIN 20 MG TAB PO SCH (21:05)
[2023-07-11] MEDS: GABAPENTIN 300 MG CAP PO SCH (21:05)
[2023-07-11] MEDS: PANTOprazole 40 MG in SYRINGE 0 ML IV SCH ×2 (21:05→21:19)
[2023-07-11] MEDS: MELATONIN 3 MG TAB PO SCH (21:07)
[2023-07-11] MEDS: OCTREOTIDE ACETATE 500mcg / D5W 100mL @50mcg/hr IV SCH (22:01)
[2023-07-11] MEDS: ADVANCED PROBIOTIC 1250 MG CAPSULE PO SCH (22:14)
[2023-07-12 01:25] LABS: Appearance Urine Cloudy (Clear); Bacteria Urine Automated 2+ (Negative); Bilirubin Urine Negative (Negative); Blood Urine Trace (Negative); Color Urine Yellow; Glucose Urine UA 2+ (Negative); Ketones Urine Negative (Negative); Leukocyte Esterase Urine 3+ (Negative); Nitrite Urine Negative (Negative); RBC Urine Automated 0-4 /hpf (0-4); Specific Gravity Urine 1.018 (1.000-1.030); Urobilinogen Urine Negative (Negative); WBC Urine Automated >30 /hpf (0-5); pH Urine 8.5 (4.5-7.5)
[2023-07-12 01:30] LABS: Protein Urine Trace (Negative)
[2023-07-12] MEDS: LEVOTHYROXINE SODIUM 100 MCG TABLET PO SCH (05:39)
[2023-07-12 06:15] LABS: Basophils # (auto) 0.03 K/uL (0.00-0.20); Basophils % (auto) 0.8 %; Eosinophils # (auto) 0.09 K/uL (0.00-0.50); Eosinophils % (auto) 2.3 %; Hematocrit (blood only) 27.7 % (37.0-47.0); Hemoglobin 8.5 g/dl (12.0-16.0); Immature Granulocytes # (auto) 0.01 K/uL (0.01-0.20); Immature Granulocytes % (auto) 0.3 %; Lymphocytes # (auto) 0.73 K/uL (1.20-3.40); Lymphocytes % (auto) 18.7 %; Mean Corpuscular Hemoglobin 25.9 pg (25.0-34.0); Mean Corpuscular Hgb Conc 30.7 g/dL (32.0-36.0); Mean Corpuscular Volume 84.5 fL (80.0-100.0); Mean Platelet Volume 12.4 fL (9.4-12.4); Monocytes % (auto) 12.8 %; Neutrophils # (auto) 2.55 K/uL (1.40-6.50); Neutrophils % (auto) 65.1 %; Platelet Count 57 K/uL (130-400); RDW Standard Deviation 52.5 fL (36.4-46.3); Red Blood Count 3.28 M/uL (4.20-5.40); White Blood Count 3.91 K/ul (4.8-10.8)
[2023-07-12] MEDS: OCTREOTIDE ACETATE 500mcg / D5W 100mL @50mcg/hr IV SCH (06:28)
[2023-07-12 06:49] LABS: BUN Creatinine Ratio 16.1 (10-20); Calcium 8.9 mg/dl (8.6-10.3); Creatinine Clr Calc Pharmacy 20.6 ml/min; Est GFR (African American) 34.8 ml/min; Phosphorus 3.2 mg/dl (2.5-4.9); Potassium 4.6 mmol/L (3.5-5.1)
[2023-07-12] MEDS: CARBOHYDRATES FOR HYPOGLYCEMIA PO PRN (06:49)
[2023-07-12] MEDS: INSULIN ASPART PER UNIT CHARGE SC SCH ×4 (07:25→20:09)
[2023-07-12] MEDS: ADVANCED PROBIOTIC 1250 MG CAPSULE PO SCH ×2 (08:07→20:40)
[2023-07-12] MEDS: PANTOprazole 40 MG in SYRINGE 0 ML IV SCH (08:15)
[2023-07-12] MEDS: PANTOprazole 40 MG TAB PO SCH ×2 (11:17→20:40)
--- NOTE | 2023-07-12 11:48 | Gastroenterology Progress Note ---
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 BNP and Ddimer up, no PE on CT. No gross GI bleeding, though stools may be black in color on days she takes oral iron supplement. On Plavix for PAD, no NSAIDs, tobacco/ETOH products. Continues to not have gross GI bleeding and blood ct remains stable. She refused any endoscopic evals - Monitor blood ct and transfuse prn for goal hgb >7 - PPI IV bid - Avoid NSAIDs, no APAP >2g daily - Will arrange f/u in GI clinic upon her DC - Defer endoscopies per pt's wishes - GI to sign off; pls recall prn Admission and Anticipated Discharge Date Admission Date: July 10, 2023 Supervising Physician Co-Signing Physician Notes I personally saw and evaluated the patient on 07/12/2023 with ADAM Lopez and agree with her findings and plan of care. Patient presented with anemia with hgb of 5 from baseline of 11-12. Previously hgb was 7 in March. She reports her stools alternate colors stating "i take my iron every other day so the day i take my iron stools are black and the following day they are brown." She denies any hematochezia or hematemesis but reports intermittent black stools. I discussed with patient about pursuing EGD but she is refusing endoscopy at this time. She states she is not keen on getting "any more scopes put into me" and does not want anything. She has a history of grade I EV and PHG from her underlying cirrhosis. her H/H has been stable over the past 24 hours and is 8.6 today after recieving 2 units of blood yesterday. I recommended we pursue EGD tomorrow but patient states she adamantly refuses and that "I am done." GI will therefore sign off at this time but please call back with any questions. I would recommend that she follow up in GI clinic as an outpatient given her cirrhosis and need for ongoing HCC screening and monitoring. Laura Jiménez, DO Gastroenterology and Hepatology Subjective Pt refused to have endoscopic evaluations. Hungry, frustrated and would like some food. Blood ct stable. She denies abd pain, n/v, no BMs. Review of Systems Review of Systems: All systems reviewed & are unremarkable except as noted in HPI & below Physical Exam Constitutional: WD/WN, vitals as above well groomed, cooperative and comfortable Eyes: PERRL, conjunctivae normal, anicteric sclerae ENMT: external ear and nose normal, oropharynx normal Respiratory: normal respiratory effort, lungs clear to auscultation Cardiovascular: RRR, no murmur, no edema Gastrointestinal (Abdomen): normal bowel sounds, soft, nontender, no hepatosplenomegaly Skin: + rash (on legs L > R ); no jaundice Neurologic: Motor/Sensory: no asterixis Psychiatric: A+Ox3, euthymic affect Lymphatic: no lymphedema Results & Data Vital Signs (Past 12 Hours) Vital Signs Temp Pulse Pulse Resp BP Pulse Ox O2 Del Method 07/12/23 11:22 36.8 C 62 18 134/70 98 Room Air 07/12/23 08:41 36.6 C 62 20 152/78 H 95 Room Air 07/12/23 08:21 66 07/12/23 08:19 Room Air 07/12/23 03:07 36.7 C 67 18 108/54 L 97 Room Air 07/12/23 01:09 66
[2023-07-12 13:47] LABS: Hematocrit (blood only) 27.9 % (37.0-47.0); Hemoglobin 8.6 g/dl (12.0-16.0)
[2023-07-12] MEDS ORDERED: diphenhydrAMINE HCL 25 MG/10 ML UDC PO PRN (14:29)
--- NOTE | 2023-07-12 14:48 | Hospitalist Progress Note ---
Date of Service July 12, 2023 Assessment & Plan (1) Shortness of breath: Plan Shortness of breath Acute blood loss anemia requiring transfusion Possible GI bleed Hemoglobin 5.2 at presentation. Shortness of breath likely secondary to acute anemia complicated by mild CHF [for CHF see below] Admitting CTA chest and CXR reviewed, CTA chest with no PE. Imaging with multiple healed/healing right-sided rib fractures. No pneumothorax. No history of hematemesis and bright red blood per rectum. No bowel movement so far in the admission, FOBT uncollected. Status post 2 unit blood transfusion, hemoglobin has stayed stable Patient has not moved bowel, diet started today, will continue to monitor H&H today. GI on board, patient has been refusing any interventions and antibiotics. Plan to follow-up with GI as an outpatient. Continue with PPI twice daily, no NSAIDs. Acute exacerbation of CHF (diastolic heart failure): mild Likely demand ischemia: trop minimally elevated, likely 2/2 above. Chest x-ray is consistent with mild congestive change with minimal bilateral pleural effusion BNP was more than 1000 and troponin 16 at presentation. Received 40 mg of intravenous Lasix in the emergency room Echo with EF of 60 to 65%, grade 1 diastolic dysfunction, mild concentric LVH, mildly dilated LA. Aspirin and Plavix are on hold, continue other cardiac medications. HTN: BP fairly normal today, will resume home furosemide and will monitor. Allegic rash BLE: itching/non painful. pt reports she has allergies to acetate, henc current ointment discontinued, will use benadryl po. will monitor. Other chronic conditions Hypothyroidism - cont. home levothyroxine, TSH is minimally low at 0.155, TFT in 6 weeks. c/w current levothyroxine dose. DM type 2 on insulin - on tresiba and jardiance - hold now, cont. w/ lantus while inpt, glycemic pharmacy consulted, Appreciate glycemic pharmacist invol vement. Hemoglobin A1c 7.0 CKD stage 3, baseline Cr around 1.5; stable. PAD - hx of stents, on ASA and plavix (see above), leg pain chronic, possibly worsening pain d/t profound anemia. cont. home gabapentin DVT prophylaxis: SCDs for now. Aspirin and Plavix are on hold due to GI bleed CODE STATUS: DNR/DNI Admission and Anticipated Discharge Date Admission Date: July 10, 2023 Subjective Patient seen and examined at bedside as a follow-up for symptomatic anemia and mild CHF leading to shortness of breath Patient was sitting up in bed, eating her breakfast, NAD, reports no new acute event overnight, has itching/red rash in her lower extremitiesnonpainful. Patient reports she has worsening of her current rash with the current ointment, will discontinue current ointment. She reports she has allergies to acetate. Will use p.o. Benadryl. Will monitor her H&H as diet has been started today. Denies any bowel movement after coming to the hospital. Patient was explained in detail the need for antibiotic due to her history of esophageal varices and possible GI bleed this time. Patient vehemently refused any antibiotic at this time. Patient has refused any interventions at this time. Physical Exam Physical Exam: GENERAL: Alert and oriented x3. NAD, on RA. HEENT: No pallor, no icterus. Pupils equal, round and reactive to light. Oral mucosa moist. NECK: No JVD, no neck masses. HEART: S1 and S2 heard. Regular rate and rhythm. No murmur, no gallop. RESPIRATORY SYSTEM: Normal AP diameter. No accessory muscle use. No wheezing, no crackles. ABDOMEN: Soft, bowel sounds present, nontender, no distention. CENTRAL NERVOUS SYSTEM: No facial droop. Speech is clear. Obeys simple commands. Moves extremities. EXTREMITIES: trace ble edema, ble erythema seen. Results & Data Results & Data Vital Signs (Past 12 Hours) Vital Signs Temp Pulse Pulse Resp BP Pulse Ox O2 Del Method 07/12/23 11:22 36.8 C 62 18 134/70 98 Room Air 07/12/23 08:41 36.6 C 62 20 152/78 H 95 Room Air 07/12/23 08:21 66 07/12/23 08:19 Room Air 07/12/23 03:07 36.7 C 67 18 108/54 L 97 Room Air
[2023-07-12] MEDS: GABAPENTIN 300 MG CAP PO SCH (20:40)
[2023-07-12] MEDS: ATORVASTATIN 20 MG TAB PO SCH (20:40)
[2023-07-12] MEDS: MELATONIN 3 MG TAB PO SCH (20:43)
--- NOTE | 2023-07-12 20:52 | Communication Note ---
Date of Service: July 12, 2023 Patient with itchy rash on both lower legs not responsive to Benadryl as per RN. Patient takes Yenny at home as per RN. Daily loratadine for now in place of Yenny to avoid delirium in elderly patient.
[2023-07-12] MEDS ORDERED: LORATADINE 1 MG/1 ML PO SCH ×2 (21:00)
[2023-07-12] MEDS ORDERED: LORazepam 0.5 MG TAB PO STA (23:30)
[2023-07-13] MEDS: LEVOTHYROXINE SODIUM 100 MCG TABLET PO SCH (06:35)
[2023-07-13] MEDS: PANTOprazole 40 MG TAB PO SCH (07:54)
[2023-07-13] MEDS: ADVANCED PROBIOTIC 1250 MG CAPSULE PO SCH (07:54)
[2023-07-13] MEDS: INSULIN ASPART PER UNIT CHARGE SC SCH ×2 (08:51→12:12)
[2023-07-13] MEDS ORDERED: FUROSEMIDE 20 MG TAB PO SCH (09:00)
[2023-07-13 10:10] LABS: Hematocrit (blood only) 28.6 % (37.0-47.0); Hemoglobin 8.8 g/dl (12.0-16.0); Mean Corpuscular Hemoglobin 26.2 pg (25.0-34.0); Mean Corpuscular Hgb Conc 30.8 g/dL (32.0-36.0); Mean Corpuscular Volume 85.1 fL (80.0-100.0); Mean Platelet Volume 12.2 fL (9.4-12.4); Platelet Count 55 K/uL (130-400); RDW Coefficient of Variation 17.1 % (11.5-14.5); RDW Standard Deviation 52.6 fL (36.4-46.3); Red Blood Count 3.36 M/uL (4.20-5.40); White Blood Count 3.81 K/ul (4.8-10.8)
[2023-07-13 10:24] LABS: BUN Creatinine Ratio 23.9 (10-20); Calcium 8.8 mg/dl (8.6-10.3); Creatinine Clr Calc Pharmacy 20.6 ml/min; Est GFR (African American) 34.8 ml/min
[2023-07-13] MEDS ORDERED: ASPIRIN 81 MG ECTAB PO SCH (11:00)
[2023-07-13] MEDS ORDERED: CLOPIDOGREL BISULFATE 75 MG TAB PO SCH (11:00)
[2023-07-13] MEDS ORDERED: POLYETHYLENE (MIRALAX) 17 GM PACK PO SCH (11:00)
--- NOTE | 2023-07-13 13:58 | Discharge Summary ---
Date of Service July 13, 2023 Admission HPI Per Admitting Provider 87 yo F with DM type 2 on insulin, hypothyroidism, PAD, CAD, CKD stage 3 , infrarenal AAA, hx of c. diff ,esophageal varices (w/o known bleeding) and other problems listed below who presents w/ shortness of breath and leg pain. Patient says that her legs have been bothering her for years now, due to PAD, however in the past several days she has been more short of breath and having more pain in her legs. Denies any fevers chills, but reports some cough and clear sputum production for past few days. Currently denies any chest pain, but says that with exertion and when she feels short of breath she does have chest pain. D-dimer elevated in the ED, and CT PE obtained, study not ideal, but negative for PE per report. In the ED pt found anemic with Hgb 5.2 and pRBC ordered by ED provider. chest imaging w/ pulm. vasc. congestion, BNP over 1000 and pt received 40 IV lasix in the ED. Patient denies any blood in the stool, blood in urine. Denies abdominal pain. Reports history of C. difficile, but no recent diarrhea. No nausea or vomiting. Admission Exam Per Admitting Provider Constitutional: WD/WN, vitals as above Eyes: PERRL, conjunctivae normal, anicteric sclerae ENMT: external ear and nose normal, oropharynx normal C Neck: trachea midline, no thyromegaly Respiratory: Auscultation: + crackles (no wheezing, breathing on RA saturating 95%) Cardiovascular: Rate/Rhythm: regular rate and regular rhythm (1+ LE edema) Gastrointestinal (Abdomen): Inspection/Auscultation: abdomen normal to inspec tion (soft, nontender to palp. + bowel sounds) Musculoskeletal: no cyanosis or clubbing, extremities motor strength 5/5 Skin: no rashes, warm and dry Neurologic: PERRL, EOMI, accommodation nl, no face palsy, no dysarthria Psychiatric: A+Ox3, euthymic affect Principal Diagnosis Shortness of breath Acute blood loss anemia requiring transfusion Possible GI bleed Acute exacerbation of CHFmild Likely demand ischemia Allergic rash BLE Discharge Exam GENERAL: Alert and oriented x3. NAD, on RA. HEENT: No pallor, no icterus. Pupils equal, round and reactive to light. Oral mucosa moist. NECK: No JVD, no neck masses. HEART: S1 and S2 heard. Regular rate and rhythm. No murmur, no gallop. RESPIRATORY SYSTEM: Normal AP diameter. No accessory muscle use. No wheezing, no crackles. ABDOMEN: Soft, bowel sounds present, nontender, no distention. CENTRAL NERVOUS SYSTEM: No facial droop. Speech is clear. Obeys simple commands. Moves extremities. EXTREMITIES: trace ble edema, ble erythema seen. Discharge Data Allergies Allergy/AdvReac Type Severity Reaction Status Date / Time vitamin E (d-alpha Allergy Intermediate ITCHY Unverified 01/01/22 16:17 tocopherol) RASH, HIVES--PER [facility] 09/21/21 ENCOUNTER amoxicillin AdvReac Intermediate STOMACH Unverified 01/01/22 16:17 UPSET--PER [facility] 09/21/21 ENCOUNTER baclofen AdvReac Intermediate Falls Unverified 07/10/23 16:09 clavulanic acid AdvReac Intermediate STOMACH Unverified 01/01/22 16:17 UPSET--PER [facility] 09/21/21 ENCOUNTER ropinirole AdvReac Intermediate Falls Unverified 07/10/23 16:09 tramadol AdvReac Intermediate Falls Unverified 07/10/23 16:09 dulaglutide [From Trulicity] AdvReac Vomiting Verified 09/12/22 08:47 Consultations 07/10/23 16:15 ED Decision to Admit Stat 07/11/23 08:00 Consult Gastroenterology Routine Ordered Studies 07/10/23 14:13 CT for pulmonary embolism PE [CT angio chest PE protocol] Stat Hospital Course (1) Shortness of breath: Plan 87 yo F was managed for the following: Shortness of breath Acute blood loss anemia requiring transfusion Possible GI bleed Hemoglobin 5.2 at presentation. Shortness of breath likely secondary to acute anemia complicated by mild CHF [for CHF see below] Admitting CTA chest and CXR reviewed, CTA chest with no PE. Imaging with multiple healed/healing right-sided rib fractures. No pneumothorax. No history of hematemesis and bright red blood per rectum. No bowel movement so far in the admission, FOBT uncollected. Status post 2 unit blood transfusion, hemoglobin has stayed stable. Tolerating diet and moving bowels ok. GI evaluated, patient has been refusing any interventions and antibiotics. Plan to follow-up with GI as an outpatient. Continue with PPI twice daily, no NSAIDs. Acute exacerbation of CHF (diastolic heart failure): mild Likely demand ischemia: trop minimally elevated, likely 2/2 above. Chest x-ray is consistent with mild congestive change with minimal bilateral pleural effusion BNP was more than 1000 and troponin 16 at presentation. Received 40 mg of intravenous Lasix in the emergency room Echo with EF of 60 to 65%, grade 1 diastolic dysfunction, mild concentric LVH, mildly dilated LA. Aspirin and Plavix resumed, continue other cardiac medications. Continue with home Lasix. HTN: BP fairly under control, continue with home meds. Allegic rash BLE: itching/non painful. Finds relief with loratadine, will be discharged on loratadine for few days. Improving. Other chronic conditions Hypothyroidism - cont. home levothyroxine, TSH is minimally low at 0.155, TFT in 6 weeks. c/w current levothyroxine dose. DM type 2 on insulin - on tresiba and jardiance - hold now, cont. w/ lantus while inpt, glycemic pharmacy consulted, Appreciate glycemic pharmacist involvement. Hemoglobin A1c 7.0 CKD stage 3, baseline Cr around 1.5; stable. PAD - hx of stents, on ASA and plavix (see above), leg pain chronic, possibly worsening pain d/t profound anemia. cont. home gabapentin DVT prophylaxis: SCDs for now. Aspirin and Plavix are on hold due to GI bleed CODE STATUS: DNR/DNI Patient being discharged to home with home health with following instruction at the point of discharge: Follow-up with your primary care physician within a week time and likely you will need labs CBC/CMP/magnesium/phosphorus. You will be discharged on pantoprazole twice a day for a month, then daily. Follow-up with your GI doctor as an outpatient given your history of cirrhosis and ongoing need of HCC screening and monitoring. Avoid NSAIDs, and avoid Tylenol greater than 2 g/day. For your allergic rash on lower extremities, you will be discharged on loratadine for few days. You will need repeat thyroid function test in 6 weeks, coordinate with the PCP office to set up the test. Take your medications as prescribed. Please make sure that you are able to get your medications today by calling your pharmacy before you leave the hospital so that your treatment continuity is not broken. Home Health Attestation I certify that this patient is under my care and that I, or a physicians assistant infant toddler teacher working with me, had a face to-face encounter that meets the home health [id number] encounter requirements with this patient. The encounter with the patient was in whole, or in part, for the following medical condition, which is the primary reason for home health care (list medical condition): I certify that, based on my findings, the following services are medically necessary home health services: My clinical findings support the need for the above services because: Further, I certify that my clinical findings support that this patient is homebound (i.e. absences from home require considerable and taxing effort and are for medical reasons or jewish services or infrequently or of short duration when for other reasons) because: Certification for Home Health Services: Based on the above findings, I certify that this patient is confined to the home and needs intermittent penitentiary care, physical therapy and/or speech therapy or continues to need occupational therapy. The patient is under my care, and I have initiated the establishment of the plan of care. This patient will be followed by a physician who will periodically review the plan of care. Total Time Total Time Spent Total Time Spent (In Minutes): 45 Discharge Plan Discharge Items Patient Disposition: Home - Home Health Services Reason For Visit: ANEMIA, CHF Discharge Diagnosis: Shortness of breath Acute blood loss anemia requiring transfusion Possible GI bleed Acute exacerbation of CHFmild Likely demand ischemia Allergic rash BLE Activity: Resume your previous activity Non-emergency contact: Primary Care Provider Call non-emergency contact if: you have any medication questions, your symptoms worsen, your pain is not controlled and your temperature is above 101 Follow-up/Referrals: Lizzie Vaca MD [Primary Care Provider] - (Date & Time 07/20/2023 1:40 PM Provider Lizzie Vaca MD Department Family Medicine [facility] ) Diet: Carb Consistent or DM2 and Low Sodium (2gm) Addtl Attending Provider Instructions: Follow-up with your primary care physician within a week time and likely you will need labs CBC/CMP/magnesium/phosphorus. You will be discharged on pantoprazole twice a day for a month, then daily. Follow-up with your GI doctor as an outpatient given your history of cirrhosis and ongoing need of HCC screening and monitoring. Avoid NSAIDs, and avoid Tylenol greater than 2 g/day. For your allergic rash on lower extremities, you will be discharged on loratadine for few days. You will need repeat thyroid function test in 6 weeks, coordinate with the PCP office to set up the test. Take your medications as prescribed. Please make sure that you are able to get your medications today by calling your pharmacy before you leave the hospital so that your treatment continuity is not broken. Pending Studies at Discharge: No Stand-Alone Forms: My [facility], Smoking Cessation Medications and DC Order Prescriptions: New loratadine 10 mg tablet 10 mg PO HS 5 Days Qty: 5 0RF pantoprazole 40 mg Tablet,Delayed Release (Dr/Ec) 40 mg PO BID Qty: 60 0RF Continued atorvastatin 20 mg tablet 20 mg PO QPM clopidogrel 75 mg tablet 75 mg PO QAM aspirin [Kendra Low Dose Aspirin] 81 mg Tablet,Delayed Release (Dr/Ec) 81 mg PO QAM gabapentin 300 mg capsule 300 mg PO HS ferrous sulfate [FeroSul] 325 mg (65 mg iron) tablet 325 mg PO [id number] Rx Instructions: monday and monday insulin degludec [Tresiba FlexTouch U-200] 200 unit/mL (3 mL) insulin pen 32 unit SUBCUT QAM furosemide 40 mg tablet 10 mg PO QAM Rx Instructions: hold if SBP < 110 levothyroxine 100 mcg tablet 100 mcg PO QAM Jardiance 25 mg tablet 25 mg PO QAM lidocaine 5 % Adhesive Patch,Medicated 1 patch transdermal DIRECTED PRN (Reason: Pain) fluticasone propionate [Flonase] 50 mcg/actuation [place],Suspension 1 spray INTRANASAL DAILY PRN (Reason: Allergy Symptoms) Rx Instructions: administer into each nostril trolamine salicylate [Aspercreme] 10 % Cream 1 applic TOPICAL DAILY PRN (Reason: Pain) melatonin 2 gummy PO HS cranberry 500 mg Capsule 500 mg PO HS Discontinued famotidine 40 mg tablet 40 mg PO DAILYBB sulfamethoxazole-trimethoprim [Bactrim DS] 800-160 mg Tablet See Rx Instructions .ROUTE .COMPLEX Rx Instructions: per daughter a whole tab is too strong so she takes half a tab. Started on July 04 for 7 to 10 days Discharge Orders: Discharge Order (Routine); Ordered 07/13/23 Ordered By: Tl Mcclellan/Other Patient Handouts: Hypoglycemia (Low Blood Sugar), Managing Type 2 Diabetes Admission Data Admit Date/Time: 07/10/23 17:36 Attending Provider: Tl Barrett Admit Provider: Theo Belcher Primary Care Provider: Lizzie Vaca Other Providers: Theo Belcher ; Kaia eMrrill ; Fish Thurston ; Glory Mejias ; Yoana Borrego ; Sujatha Meza ; Gracie Adhikari ; Kurtis Scott ; Terell Quijano ; Judy Burdick ; Sury Armijo ; Luisito Vu ; Kat Eastman ; Martha Guallpa ; Mariana Whitehead ; Alice Hernández ; Karlene Bailey ; Pratik Guzmán ; Colin Mendoza ; Laura Jiménez ; Kameron Dickinson Jr
== END 2023-07-13 18:42 | disposition home health service (06) | DRG 811 ==
LOC: ED 12:09 → EDINP 17:36 → SUATTDRO 17:36 → 1E 19:41 → 2S 07-12 17:32

== ENCOUNTER 2023-09-02 18:19 | Inpatient (IN) ==
--- NOTE | 2023-09-02 18:52 | Emergency Department Note ---
Impression & Plan Rectal bleed, Anemia, Antiplatelet or antithrombotic long-term use ED Provider Note NAME: JIMENEZ SIMMONS AGE: 87 SEX: F : 1935 ARRIVES VIA: Walk-In INFORMANT: Patient, ED PROVIDER(S): Andrea Arauz MD CHIEF COMPLAINT: Rectal bleeding MEDICAL DECISION MAKING: Patient presents due to concern for bright red blood per rectum. IV was established and blood work obtained along with a type and screen. The patient was consented for blood as needed. Patient's initial counts show some leukopenia with some anemia but this is improved compared to prior with a hemoglobin of 10. The patient's platelet count is low at 97,000 but she the patient has been thrombocytopenic in the past. Kidney function unremarkable but with some prerenal azotemia. I did convey the findings to the patient patient is comfortable with being admitted for observation which I think is reasonable given the patient's history of requiring transfusion as well as antiplatelet use and bright red blood per rectum. I did speak the on-call hospitalist Dr. Sykes and the patient was admitted to the medicine service Discussion w/ other healthcare providers: Dr. Sykes to inpatient medicine service Prior /Outside records reviewed: None Differential diagnosis: Diverticulitis, AVM, coagulopathy, colitis, inflammatory bowel disease, malignancy, esophagitis, peptic ulcer disease, variceal bleed, gastritis, fissure, hemorrhoids, as well as other pathologies. Diagnostics, as interpreted by me: ECG: None Cardiac monitoring: An order was placed for continuous cardiac monitoring. The monitor shows a rate of 68 with sinus rhythm. Patient was placed on pulse oximetry Medical decision rules: None Imaging studies: None HPI: Patient presents due to concern for bright red blood per rectum. The patient thought that she had a bowel movement went to the bathroom and just had a bloody bowel movement. Patient denies any chest pains but does suffer from chronic shortness of breath which is not new. The patient has required transfusions in the past last receiving 1 in July and they do think that the patient likely has some sort of GI bleeding but the patient has never had an endoscopy or colonoscopy. Patient denies any abdominal pain but does state that her intestines are moving as if she is to have a bowel movement. The patient does take aspirin and Plavix and last took them this morning. The patient not take any other blood thinners. The patient denies dizziness or lightheadedness PAST MEDICAL HISTORY: See Below PAST SURGICAL HISTORY: See Below SOCIAL HISTORY: See Below HOME MEDICATIONS: See Below ALLERGIES: See Below VITALS: See Below PHYSICAL EXAMINATION: GENERAL: NAD, non-toxic. EYE EXAM: Normal conjunctiva. PERRL, no anisocoria and EOM's grossly intact w/o pain. OROPHARYNX: Moist mucus membranes, grossly normal dentition. NECK: Supple, no nuchal rigidity, no adenopathy, non-tender. No signs of meningismus. FROM of the neck with good chin to chest and neck extension. No stridor. LUNGS: Clear to auscultation. Normal chest wall mechanics. HEART: NSR, no MRG. ABDOMEN: Abdomen soft, non-tender, no masses, no rebound or guarding. BACK: No CVA TTP. SKIN: No rashes and no bruising. UPPER EXTREMITIES: Upper extremities are grossly normal. LOWER EXTREMITIES: Grossly normal, no edema. NEURO EXAM: A&O x3, cranial nerves II-XII grossly intact, normal speech, moves all 4 extremities. Past Med/Surg History Medical History Acute metabolic encephalopathy EARL (acute kidney injury) Anemia Aneurysm of infrarenal abdominal aorta Aneurysm of infrarenal abdominal aorta Atrial fibrillation with rapid ventricular response Chest pain Cholelithiasis Cholelithiasis Cirrhosis Cirrhosis Cirrhosis CKD (chronic kidney disease) stage 3, GFR 30-59 ml/min CKD (chronic kidney disease), stage III COPD (chronic obstructive pulmonary disease) COPD (chronic obstructive pulmonary disease) Diabetes mellitus, type II Disorder of acid-base balance DM II (diabetes mellitus, type II), controlled DVT prophylaxis Emphysema Fall GERD (gastroesophageal reflux disease) GI bleed Graves disease History of acute renal failure History of Graves' disease HLD (hyperlipidemia) HTN (hypertension) Hypertension Hypoglycemic episode in patient with diabetes mellitus Hypothyroid Hypothyroidism Metabolic acidosis PAD (peripheral artery disease) PAD (peripheral artery disease) PAF (paroxysmal atrial fibrillation) Pancytopenia Pneumonia Sepsis Sinus bradycardia Thrombocytopenia Type 2 diabetes mellitus Surgical History History of appendectomy History of intravascular stent placement Reported Left subclavian, superior mesenteric artery, L iliac, L fempop bypass - Dr Andrade [facility] Family History Other Diabetes Hypertension Social History Smoking Status: Former smoker Hx Alcohol Use: Yes Alcohol Intake Frequency: Monthly or Less Alcohol Intake Frequency Comment: Holidays Hx Substance Use: No Preferred Language: Mohawk Communication Ability: Effective Text Transcriber Required: No Beliefs That Will Affect Care: None marital status: Current Living Situation: Alone Current Living Situation Comment: unable to determine How many Children do You have: 3 Feels Safe at Home: Yes Assistive Devices: Cane, Raised Toilet Seat and Walker Allergies Allergies Allergy/AdvReac Type Severity Reaction Status Date / Time vitamin E (d-alpha Allergy Intermediate ITCHY Unverified 01/01/22 16:17 tocopherol) RASH, HIVES--PER [facility] 09/21/21 ENCOUNTER amoxicillin AdvReac Intermediate STOMACH Unverified 01/01/22 16:17 UPSET--PER [facility] 09/21/21 ENCOUNTER baclofen AdvReac Intermediate Falls Unverified 07/10/23 16:09 clavulanic acid AdvReac Intermediate STOMACH Unverified 01/01/22 16:17 UPSET--PER [facility] 09/21/21 ENCOUNTER ropinirole AdvReac Intermediate Falls Unverified 07/10/23 16:09 tramadol AdvReac Intermediate Falls Unverified 07/10/23 16:09 dulaglutide [From [facility]] AdvReac Vomiting Verified 09/12/22 08:47 Home Meds Home Medications Medication Instructions Recorded Confirmed aspirin 81 mg tablet,delayed 81 mg PO QAM 04/10/19 09/02/23 release (Kendra Low Dose Aspirin) atorvastatin 20 mg tablet 20 mg PO QPM 04/10/19 09/02/23 clopidogrel 75 mg tablet 75 mg PO QAM 04/10/19 09/02/23 ferrous sulfate 325 mg (65 mg 325 mg PO 3XWK 01/01/22 09/02/23 iron) tablet (FeroSul) gabapentin 300 mg capsule 300 mg PO HS PRN Pain 01/01/22 09/02/23 insulin degludec 200 unit/mL (3 40 unit subcut QAM 01/01/22 09/02/23 mL) subcutaneous pen (Tresiba FlexTouch U-200 insulin) empagliflozin 25 mg tablet 25 mg PO QAM 09/12/22 09/02/23 (Jardiance) furosemide 40 mg tablet 10 mg PO QAM 09/12/22 09/02/23 levothyroxine 100 mcg tablet 100 mcg PO QAM 09/12/22 09/02/23 cranberry 500 mg capsule 500 mg PO HS 07/10/23 09/02/23 fluticasone propionate 50 1 spray intranasal DAILY PRN 07/10/23 09/02/23 mcg/actuation nasal Allergy Symptoms spray,suspension lidocaine 5 % topical patch 1 patch transdermal DIRECTED 07/10/23 09/02/23 PRN Pain trolamine salicylate 10 % topical 1 applic topical DAILY PRN Pain 07/10/23 09/02/23 cream (Aspercreme) hydroxyzine HCl 10 mg tablet 10 mg PO Q12 PRN Itching 09/02/23 09/02/23 melatonin 5 mg chewable tablet 10 mg PO HS 09/02/23 09/02/23 pantoprazole 40 mg tablet,delayed 40 mg PO AMHS 09/02/23 09/02/23 release Results & Data (ED) Vital Signs Vital Signs - 24 hr 09/02/23 18:30 09/02/23 19:13 09/02/23 19:13 Temperature 36.7 C Temperature Source Temporal Artery Scan Pulse Rate 73 Pulse Rate [Radial] 67 Respiratory Rate 18 17 Respiratory Effort / Characteristics Non-Labored Spontaneous Respiratory Depth Normal Respiratory Pattern Regular Blood Pressure 151/65 H Blood Pressure [Right Arm] 145/63 H Blood Pressure Mean 93 Blood Pressure Mean [Right Arm] 90 Pulse Oximetry 95 97 97 Oxygen Delivery Method Room Air Room Air Room Air Sepsis Recent Fever Within 48 Hours No Sepsis New/Unexplained Change in Mental Status No Sepsis Action Taken by Nursing No Action Required 09/02/23 21:00 Temperature Temperature Source Pulse Rate Pulse Rate [Radial] 67 Respiratory Rate 17 Respiratory Effort / Characteristics Non-Labored Spontaneous Respiratory Depth Normal Respiratory Pattern Regular Blood Pressure Blood Pressure [Right Arm] 167/68 H Blood Pressure Mean Blood Pressure Mean [Right Arm] 101 Pulse Oximetry 97 Oxygen Delivery Method Room Air Sepsis Recent Fever Within 48 Hours Sepsis New/Unexplained Change in Mental Status Sepsis Action Taken by [facility] Medications Current Medication List: was personally reviewed by me Laboratory Data Attestation: I reviewed the patient's lab results. 09/02/23 18:39 09/02/23 18:39 Lab Results 09/02/23 09/02/23 09/02/23 Range/Units 18:39 18:39 18:39 WBC 3.89 L (4.8-10.8) K/ul RBC 4.10 L (4.20-5.40) M/uL Hgb 10.3 L (12.0-16.0) g/dl Hct 33.9 L (37.0-47.0) % MCV 82.7 (80.0-100.0) fL MCH 25.1 (25.0-34.0) pg MCHC 30.4 L (32.0-36.0) g/dL RDW Std Deviation 56.7 H (36.4-46.3) fL RDW Coeff of Daniela 18.6 H (11.5-14.5) % Plt Count 97 L (130-400) K/uL MPV 10.8 (9.4-12.4) fL Immature Gran % (Auto) % Neut % (Auto) % Lymph % (Auto) % [place]aine % (Auto) % Eos % (Auto) % Baso % (Auto) % Neut # (Auto) (1.40-6.50) K/uL Lymph # (Auto) (1.20-3.40) K/uL [place] # (Auto) (0.11-0.59) K/uL Eos # (Auto) (0.00-0.50) K/uL Baso # (Auto) (0.00-0.20) K/uL Immature Gran # (Auto) (0.01-0.20) K/uL PT 11.8 (9.0-12.0) Seconds INR 1.1 (0.9-1.1) APTT 28.5 (21.0-31.0) Seconds PTT Ratio 1.0 Sodium (136-145) mmol/L Potassium (3.5-5.1) mmol/L Chloride (98-107) mmol/L Carbon Dioxide (21-32) mmol/L Anion Gap (3-11) BUN (6-23) mg/dl Creatinine (0.6-1.2) mg/dl Est Cr Clr Drug Dosing Est GFR ( Amer) ml/min Est GFR (Non-Af Amer) ml/min BUN/Creatinine Ratio (10-20) Glucose (70-99(Fasting)) mg/dl Calcium (8.6-10.3) mg/dl Total Bilirubin (0.2-1.0) mg/dl AST (13-39) U/L ALT (7-52) U/L Alkaline Phosphatase (34-104) U/L Troponin I High Sens (0-14) pg/ml Total Protein (6.0-8.3) gm/dl Albumin (3.4-5.0) gm/dl Globulin (2.5-4.0) gm/dl Albumin/Globulin Ratio (0.9-2) Blood Type B Positive Antibody Screen NEGATIVE 09/02/23 09/02/23 Range/Units 18:39 19:51 WBC 3.87 L (4.8-10.8) K/ul RBC 3.78 L (4.20-5.40) M/uL Hgb 9.3 L (12.0-16.0) g/dl Hct 31.1 L (37.0-47.0) % MCV 82.3 (80.0-100.0) fL MCH 24.6 L (25.0-34.0) pg MCHC 29.9 L (32.0-36.0) g/dL RDW Std Deviation 57.0 H (36.4-46.3) fL RDW Coeff of Daniela 18.8 H (11.5-14.5) % Plt Count 82 L (130-400) K/uL MPV 10.5 (9.4-12.4) fL Immature Gran % (Auto) 0.3 % Neut % (Auto) 60.2 % Lymph % (Auto) 26.6 % [place]aine % (Auto) 10.1 % Eos % (Auto) 2.3 % Baso % (Auto) 0.5 % Neut # (Auto) 2.33 (1.40-6.50) K/uL Lymph # (Auto) 1.03 L (1.20-3.40) K/uL [place] # (Auto) 0.39 (0.11-0.59) K/uL Eos # (Auto) 0.09 (0.00-0.50) K/uL Baso # (Auto) 0.02 (0.00-0.20) K/uL Immature Gran # (Auto) 0.01 (0.01-0.20) K/uL PT (9.0-12.0) Seconds INR (0.9-1.1) APTT (21.0-31.0) Seconds PTT Ratio Sodium 138 (136-145) mmol/L Potassium 4.1 (3.5-5.1) mmol/L Chloride 109 H (98-107) mmol/L Carbon Dioxide 24 (21-32) mmol/L Anion Gap 5 (3-11) BUN 29 H (6-23) mg/dl Creatinine 1.20 (0.6-1.2) mg/dl Est Cr Clr Drug Dosing Not Reportable Est GFR ( Amer) 47.4 ml/min Est GFR (Non-Af Amer) 40.9 ml/min BUN/Creatinine Ratio 24.2 H (10-20) Glucose 205 H (70-99(Fasting)) mg/dl Calcium 9.5 (8.6-10.3) mg/dl Total Bilirubin 1.1 H (0.2-1.0) mg/dl AST 25 (13-39) U/L ALT 26 (7-52) U/L Alkaline Phosphatase 151 H (34-104) U/L Troponin I High Sens 10.8 (0-14) pg/ml Total Protein 6.7 (6.0-8.3) gm/dl Albumin 3.9 (3.4-5.0) gm/dl Globulin 2.8 (2.5-4.0) gm/dl Albumin/Globulin Ratio 1.4 (0.9-2) Blood Type Antibody Screen Discharge Plan Visit Data Chief Complaint: Rectal Bleed Stated Complaint: RECTAL BLEED ED Provider: Andrea Arauz Discharge Problem: Rectal bleed, Anemia, Antiplatelet or antithrombotic long-term use Forms Stand Alone Forms: My Weekdone Prescriptions Prescriptions: No Action atorvastatin 20 mg tablet 20 mg PO QPM clopidogrel 75 mg tablet 75 mg PO QAM aspirin [Kendra Low Dose Aspirin] 81 mg Tablet,Delayed Release (Dr/Ec) 81 mg PO QAM gabapentin 300 mg capsule 300 mg PO HS PRN (Reason: Pain) ferrous sulfate [FeroSul] 325 mg (65 mg iron) tablet 325 mg PO 3XWK Rx Instructions: monday and monday insulin degludec [Tresiba FlexTouch U-200] 200 unit/mL (3 mL) insulin pen 40 unit SUBCUT QAM furosemide 40 mg tablet 10 mg PO QAM Rx Instructions: hold if SBP < 110 levothyroxine 100 mcg tablet 100 mcg PO QAM Jardiance 25 mg tablet 25 mg PO QAM lidocaine 5 % Adhesive Patch,Medicated 1 patch transdermal DIRECTED PRN (Reason: Pain) fluticasone propionate 50 mcg/actuation [place],Suspension 1 spray INTRANASAL DAILY PRN (Reason: Allergy Symptoms) Rx Instructions: administer into each nostril trolamine salicylate [Aspercreme] 10 % Cream 1 applic TOPICAL DAILY PRN (Reason: Pain) cranberry 500 mg Capsule 500 mg PO HS hydroxyzine HCl 10 mg tablet 10 mg PO Q12 PRN (Reason: Itching) pantoprazole 40 mg tablet,delayed release (DR/EC) 40 mg PO AMHS melatonin 5 mg tablet,chewable 10 mg PO HS Referrals Referrals: Lizzie Vaca MD [Primary Care Provider] -
[2023-09-02 19:06] LABS: Hematocrit (blood only) 33.9 % (37.0-47.0); Hemoglobin 10.3 g/dl (12.0-16.0); Mean Corpuscular Hemoglobin 25.1 pg (25.0-34.0); Mean Corpuscular Hgb Conc 30.4 g/dL (32.0-36.0); Mean Corpuscular Volume 82.7 fL (80.0-100.0); Mean Platelet Volume 10.8 fL (9.4-12.4); Platelet Count 97 K/uL (130-400); RDW Coefficient of Variation 18.6 % (11.5-14.5); RDW Standard Deviation 56.7 fL (36.4-46.3); White Blood Count 3.89 K/ul (4.8-10.8)
[2023-09-02 19:20] LABS: Alanine Aminotransferase 26 U/L (7-52); Albumin Globulin Ratio 1.4 (0.9-2); Albumin Level 3.9 gm/dl (3.4-5.0); Alkaline Phosphatase 151 U/L (34-104); Anion Gap 5 (3-11); Aspartate Aminotransferase 25 U/L (13-39); BUN Creatinine Ratio 24.2 (10-20); Bilirubin,Total 1.1 mg/dl (0.2-1.0); Blood Urea Nitrogen 29 mg/dl (6-23); Calcium 9.5 mg/dl (8.6-10.3); Carbon Dioxide 24 mmol/L (21-32); Chloride 109 mmol/L (98-107); Est GFR (African American) 47.4 ml/min; Est GFR (Non-African American) 40.9 ml/min; Globulin 2.8 gm/dl (2.5-4.0); Glucose 205 mg/dl (70-99(Fasting)); Potassium 4.1 mmol/L (3.5-5.1); Sodium 138 mmol/L (136-145); Total Protein 6.7 gm/dl (6.0-8.3)
[2023-09-02 19:26] LABS: Troponin I High Sensitivity 10.8 pg/ml (0-14)
[2023-09-02 20:17] LABS: INR 1.1 (0.9-1.1); Partial Thromboplastin Time 28.5 Seconds (21.0-31.0); Prothrombin Time 11.8 Seconds (9.0-12.0)
[2023-09-02 20:26] LABS: Basophils # (auto) 0.02 K/uL (0.00-0.20); Basophils % (auto) 0.5 %; Eosinophils # (auto) 0.09 K/uL (0.00-0.50); Eosinophils % (auto) 2.3 %; Hematocrit (blood only) 31.1 % (37.0-47.0); Hemoglobin 9.3 g/dl (12.0-16.0); Immature Granulocytes # (auto) 0.01 K/uL (0.01-0.20); Immature Granulocytes % (auto) 0.3 %; Lymphocytes # (auto) 1.03 K/uL (1.20-3.40); Lymphocytes % (auto) 26.6 %; Mean Corpuscular Hemoglobin 24.6 pg (25.0-34.0); Mean Corpuscular Hgb Conc 29.9 g/dL (32.0-36.0); Mean Corpuscular Volume 82.3 fL (80.0-100.0); Mean Platelet Volume 10.5 fL (9.4-12.4); Monocytes # (auto) 0.39 K/uL (0.11-0.59); Monocytes % (auto) 10.1 %; Neutrophils # (auto) 2.33 K/uL (1.40-6.50); Neutrophils % (auto) 60.2 %; Platelet Count 82 K/uL (130-400); RDW Coefficient of Variation 18.8 % (11.5-14.5); Red Blood Count 3.78 M/uL (4.20-5.40); White Blood Count 3.87 K/ul (4.8-10.8)
--- NOTE | 2023-09-02 22:49 | History & Physical Report ---
Date of Service September 02, 2023 Assessment & Plan (1) Rectal bleed: Plan: 87-year-old female with past medical history significant for type 2 diabetes, hypothyroidism, hyperparathyroidism, COPD, history of pneumothorax on the right side, AAA, peripheral vascular disease, history of esophageal varices,'s CAD, hypertension, stenosis of left carotid artery, portal hypertensive gastropathy, liver cirrhosis secondary to [place], chronic kidney stage III, mixed stress and urge incontinence, inflammatory arthritis, osteoarthritis, peripheral neuropathy, history of thrombocytopenia, history of pancytopenia, ambulatory dysfunction, who lives alone at home but family is close by and ambulates with walker comes because of rectal bleed. Rectal bleed Hemoglobin 9.3 Blood consent obtained Patient recent last admission hemoglobin was 5.2 received 2 units of PRBCs and r efused endoscopies If continues to bleed will consult GI We will keep her n.p.o., gentle fluids Continue home p.o. PPI Close monitoring telemetry Diabetes Current back on long-acting insulin to 20 units daily as patient n.p.o. Sliding scale We will monitor History of peripheral vascular disease History of stents Holding aspirin and Plavix because of rectal bleed Continue statin Chronic diastolic CH Continue home Lasix Getting gentle fluids Monitor for volume overload CKD stage III Presented with creatinine 1.2 We will follow labs Liver cirrhosis from [place]ULL[place] Pancytopenia on lasix will follow labs DVT prophylaxis SCDs Disposition Med/telemetry Full code if there is chance of recovery as per my discussion with the patient History of Present Illness Chief Complaint: Rectal bleed Primary Care Provider: Lizzie Vaca MD 87-year-old female with past medical history significant for type 2 diabetes, hypothyroidism, hyperparathyroidism, COPD, history of pneumothorax on the right side, AAA, peripheral vascular disease, history of esophageal varices,'s CAD, hypertension, stenosis of left carotid artery, portal hypertensive gastropathy, liver cirrhosis secondary to [place], chronic kidney stage III, mixed stress and urge incontinence, inflammatory arthritis, osteoarthritis, peripheral neuropathy, history of thrombocytopenia, history of pancytopenia, ambulatory dysfunction, who lives alone at home but family is close by and ambulates with walker comes because of rectal bleed. Patient states she has 1 episode rectal bleed today and she was recently in the hospital with hemoglobin of 5.2 and received 2 units of PRBC and hemoglobin remained stable and she refused endoscopies. Patient denies any abdominal pain. Micturating okay. No nausea vomiting. No shortness of breath. She has some chest discomfort but at tributes it to muscle pain and from sinus drainage. Has chronic sinus problem. No dysphagia. Appetite okay. No headache. Vision is okay. Somewhat hard of hearing. Currently resting comfortably and hemodynamically stable. Past medical history. As mentioned above Past surgical history. EGD. Repair left carotid aneurysm. Left femoral- popliteal bypass. Stents to left subclavian and superior mesenteric artery. Stents to celiac left iliac and subclavian artery. This right femoral endarterectomy. Appendectomy. Social history lives alone. No smoking. Alcohol rare. No drug use. Family history no family on file. Allergies Allergy/AdvReac Type Severity Reaction Status Date / Time vitamin E (d-alpha Allergy Intermediate ITCHY Unverified 01/01/22 16:17 tocopherol) RASH, HIVES--PER [facility] 09/21/21 ENCOUNTER amoxicillin AdvReac Intermediate STOMACH Unverified 01/01/22 16:17 UPSET--PER [facility] 09/21/21 ENCOUNTER baclofen AdvReac Intermediate Falls Unverified 07/10/23 16:09 clavulanic acid AdvReac Intermediate STOMACH Unverified 01/01/22 16:17 UPSET--PER [facility] 09/21/21 ENCOUNTER ropinirole AdvReac Intermediate Falls Unverified 07/10/23 16:09 tramadol AdvReac Intermediate Falls Unverified 07/10/23 16:09 dulaglutide [From [facility]] AdvReac Vomiting Verified 09/12/22 08:47 Home Medications Medication Instructions Recorded Confirmed Type aspirin 81 mg tablet,delayed 81 mg PO QAM 04/10/19 09/02/23 History release (Kendra Low Dose Aspirin) atorvastatin 20 mg tablet 20 mg PO QPM 04/10/19 09/02/23 History clopidogrel 75 mg tablet 75 mg PO QAM 04/10/19 09/02/23 History ferrous sulfate 325 mg (65 mg 325 mg PO 3XWK 01/01/22 09/02/23 History iron) tablet (FeroSul) gabapentin 300 mg capsule 300 mg PO HS PRN Pain 01/01/22 09/02/23 History insulin degludec 200 unit/mL (3 32 - 40 unit subcut QAM 01/01/22 09/03/23 History mL) subcutaneous pen (Tresiba FlexTouch U-200 insulin) empagliflozin 25 mg tablet 25 mg PO QAM 09/12/22 09/02/23 History (Jardiance) furosemide 40 mg tablet 20 mg PO QAM 09/12/22 09/03/23 History levothyroxine 100 mcg tablet 100 mcg PO QAM 09/12/22 09/02/23 History cranberry 500 mg capsule 500 mg PO HS 07/10/23 09/02/23 History fluticasone propionate 50 1 spray intranasal DAILY PRN 07/10/23 09/02/23 History mcg/actuation nasal Allergy Symptoms spray,suspension lidocaine 5 % topical patch 1 patch transdermal DIRECTED 07/10/23 09/02/23 History PRN Pain trolamine salicylate 10 % topical 1 applic topical DAILY PRN Pain 07/10/23 09/02/23 History cream (Aspercreme) hydroxyzine HCl 10 mg tablet 10 mg PO Q12 PRN Itching 09/02/23 09/02/23 History melatonin 5 mg chewable tablet 10 mg PO HS 09/02/23 09/02/23 History pantoprazole 40 mg tablet,delayed 40 mg PO AMHS 09/02/23 09/02/23 History release Past Med/Surg History Medical History Acute metabolic encephalopathy EARL (acute kidney injury) Anemia Aneurysm of infrarenal abdominal aorta Aneurysm of infrarenal abdominal aorta Atrial fibrillation with rapid ventricular response Chest pain Cholelithiasis Cholelithiasis Cirrhosis Cirrhosis Cirrhosis CKD (chronic kidney disease) stage 3, GFR 30-59 ml/min CKD (chronic kidney disease), stage III COPD (chronic obstructive pulmonary disease) COPD (chronic obstructive pulmonary disease) Diabetes mellitus, type II Disorder of acid-base balance DM II (diabetes mellitus, type II), controlled DVT prophylaxis Emphysema Fall GERD (gastroesophageal reflux disease) GI bleed Graves disease History of acute renal failure History of Graves' disease HLD (hyperlipidemia) HTN (hypertension) Hypertension Hypoglycemic episode in patient with diabetes mellitus Hypothyroid Hypothyroidism Metabolic acidosis PAD (peripheral artery disease) PAD (peripheral artery disease) PAF (paroxysmal atrial fibrillation) Pancytopenia Pneumonia Sepsis Sinus bradycardia Thrombocytopenia Type 2 diabetes mellitus Surgical History History of appendectomy History of intravascular stent placement Reported Left subclavian, superior mesenteric artery, L iliac, L fempop bypass - Dr Andrade [facility] Family History Other Diabetes Hypertension Social History Smoking Status: Never smoker Hx Alcohol Use: Yes Alcohol Intake Frequency: Monthly or Less Alcohol Intake Frequency Comment: Holidays Hx Substance Use: No Preferred Language: [place] Communication Ability: Effective Creative Arts Therapist Required: No Beliefs That Will Affect Care: None marital status: Current Living Situation: Family Current Living Situation Comment: unable to determine How many Children do You have: 3 Feels Safe at Home: Yes Safety Concerns: Feels Safe At This Time Assistive Devices: Cane, Raised Toilet Seat and Walker Review of Systems Review of Systems: All systems reviewed & are unremarkable except as noted in HPI & below Physical Exam Physical Exam: General- Not in distress. Head- atraumatic Eyes- PERRL. ENT- oropharynx clear Neck- supple, no JVD. Lungs- clear to auscultation no wheezing or crackles. Heart- regular rhythm; no murmur, no gallop. Abdomen- normal bowel sounds, soft, nontender, no distension. Extremities- mild pretibial edema, no erythema seen. Neuro- alert, oriented x 3; PERRL, no facial palsy; no dysarthria; moves extremities. Skin- warm & dry Results & Data Results & Data Vital Signs (Past 12 Hours) Vital Signs Temp Pulse Pulse Resp BP BP Pulse Ox 09/02/23 21:00 67 17 167/68 H 97 09/02/23 19:13 97 09/02/23 19:13 67 17 145/63 H 97 09/02/23 18:30 36.7 C 73 18 151/65 H 95 O2 Del Method 09/02/23 21:00 Room Air 09/02/23 19:13 Room Air 09/02/23 19:13 Room Air 09/02/23 18:30 Room Air Diagnostic Findings Laboratory Results WBC 3.87 K/ul (4.8-10.8) L 09/02/23 19:51 RBC 3.78 M/uL (4.20-5.40) L 09/02/23 19:51 Hgb 9.3 g/dl (12.0-16.0) L 09/02/23 19:51 Hct 31.1 % (37.0-47.0) L 09/02/23 19:51 MCV 82.3 fL (80.0-100.0) 09/02/23 19:51 MCH 24.6 pg (25.0-34.0) L 09/02/23 19:51 MCHC 29.9 g/dL (32.0-36.0) L 09/02/23 19:51 RDW Std Deviation 57.0 fL (36.4-46.3) H 09/02/23 19:51 RDW Coeff of Daniela 18.8 % (11.5-14.5) H 09/02/23 19:51 Plt Count 82 K/uL (130-400) L 09/02/23 19:51 MPV 10.5 fL (9.4-12.4) 09/02/23 19:51 Immature Gran % (Auto) 0.3 % 09/02/23 19:51 Neut % (Auto) 60.2 % 09/02/23 19:51 Lymph % (Auto) 26.6 % 09/02/23 19:51 [place] % (Auto) 10.1 % 09/02/23 19:51 Eos % (Auto) 2.3 % 09/02/23 19:51 Baso % (Auto) 0.5 % 09/02/23 19:51 Neut # (Auto) 2.33 K/uL (1.40-6.50) 09/02/23 19:51 Lymph # (Auto) 1.03 K/uL (1.20-3.40) L 09/02/23 19:51 [place] # (Auto) 0.39 K/uL (0.11-0.59) 09/02/23 19:51 Eos # (Auto) 0.09 K/uL (0.00-0.50) 09/02/23 19:51 Baso # (Auto) 0.02 K/uL (0.00-0.20) 09/02/23 19:51 Immature Gran # (Auto) 0.01 K/uL (0.01-0.20) 09/02/23 19:51 PT 11.8 Seconds (9.0-12.0) 09/02/23 18:39 INR 1.1 (0.9-1.1) 09/02/23 18:39 APTT 28.5 Seconds (21.0-31.0) 09/02/23 18:39 PTT Ratio 1.0 09/02/23 18:39 Sodium 138 mmol/L (136-145) 09/02/23 18:39 Potassium 4.1 mmol/L (3.5-5.1) 09/02/23 18:39 Chloride 109 mmol/L (98-107) H 09/02/23 18:39 Carbon Dioxide 24 mmol/L (21-32) 09/02/23 18:39 Anion Gap 5 (3-11) 09/02/23 18:39 BUN 29 mg/dl (6-23) H 09/02/23 18:39 Creatinine 1.20 mg/dl (0.6-1.2) 09/02/23 18:39 Est Cr Clr Drug Dosing Not Reportable 09/02/23 18:39 Est GFR ( Amer) 47.4 ml/min 09/02/23 18:39 Est GFR (Non-Af Amer) 40.9 ml/min 09/02/23 18:39 BUN/Creatinine Ratio 24.2 (10-20) H 09/02/23 18:39 Glucose 205 mg/dl (70-99(Fasting)) H 09/02/23 18:39 Calcium 9.5 mg/dl (8.6-10.3) 09/02/23 18:39 Total Bilirubin 1.1 mg/dl (0.2-1.0) H 09/02/23 18:39 AST 25 U/L (13-39) 09/02/23 18:39 ALT 26 U/L (7-52) 09/02/23 18:39 Alkaline Phosphatase 151 U/L (34-104) H 09/02/23 18:39 Troponin I High Sens 10.8 pg/ml (0-14) 09/02/23 18:39 Total Protein 6.7 gm/dl (6.0-8.3) 09/02/23 18:39 Albumin 3.9 gm/dl (3.4-5.0) 09/02/23 18:39 Globulin 2.8 gm/dl (2.5-4.0) 09/02/23 18:39 Albumin/Globulin Ratio 1.4 (0.9-2) 09/02/23 18:39 Blood Type B Positive 09/02/23 18:39 Antibody Screen NEGATIVE 09/02/23 18:39 Code Status & VTE Plan VTE Prophylaxis Plan VTE Prophylaxis will be ordered: Yes
[2023-09-03] MEDS ORDERED: NITROGLYCERIN SL 0.4 MG/TAB TAB SL PRN (00:27)
[2023-09-03] MEDS ORDERED: LIDOCAINE 5% 1 PATCH TD PRN (00:27)
[2023-09-03] MEDS ORDERED: GLUCAGON FOR INJ 1 MG VIAL SQ PRN (00:27)
[2023-09-03] MEDS ORDERED: FLUTICASONE PROPIONATE NA SPR 16 GM BTL PRN (00:27)
[2023-09-03] MEDS ORDERED: TROLAMINE SALICYLATE 10% CRM 255 APPLN/85 GM TUBE EXT PRN (00:27)
[2023-09-03] MEDS ORDERED: DEXTROSE 50% 50 ML SYRINGE IV PRN (00:27)
[2023-09-03] MEDS ORDERED: GLUCOSE 10 TAB/TUBE PO PRN (00:27)
[2023-09-03] MEDS ORDERED: GLUCOSE 40% GEL 15 GM TUBE PO PRN (00:27)
[2023-09-03] MEDS ORDERED: CARBOHYDRATES FOR HYPOGLYCEMIA PO PRN (00:27)
[2023-09-03] MEDS: INSULIN ASPART PER UNIT CHARGE SC SCH ×5 (01:37→21:12)
[2023-09-03] MEDS: SODIUM CHLORIDE 0.9% 1,000 ML IV SCH ×2 (01:41→12:40)
[2023-09-03] MEDS: LEVOTHYROXINE SODIUM 100 MCG TABLET PO SCH (05:54)
[2023-09-03 06:40] LABS: Basophils # (auto) 0.01 K/uL (0.00-0.20); Basophils % (auto) 0.4 %; Eosinophils # (auto) 0.07 K/uL (0.00-0.50); Eosinophils % (auto) 2.9 %; Hematocrit (blood only) 31.8 % (37.0-47.0); Hemoglobin 9.6 g/dl (12.0-16.0); Lymphocytes # (auto) 0.79 K/uL (1.20-3.40); Lymphocytes % (auto) 32.9 %; Mean Corpuscular Hemoglobin 24.9 pg (25.0-34.0); Mean Corpuscular Hgb Conc 30.2 g/dL (32.0-36.0); Mean Corpuscular Volume 82.4 fL (80.0-100.0); Monocytes # (auto) 0.21 K/uL (0.11-0.59); Monocytes % (auto) 8.8 %; Neutrophils # (auto) 1.32 K/uL (1.40-6.50); Platelet Count 68 K/uL (130-400); RDW Coefficient of Variation 18.6 % (11.5-14.5); Red Blood Count 3.86 M/uL (4.20-5.40)
[2023-09-03 06:56] LABS: BUN Creatinine Ratio 23.5 (10-20); Calcium 8.9 mg/dl (8.6-10.3); Creatinine Clr Calc Pharmacy 36.7 ml/min; Est GFR (African American) 57.7 ml/min; Est GFR (Non-African American) 49.8 ml/min; Magnesium 1.9 mg/dl (1.7-2.4); Potassium 4.1 mmol/L (3.5-5.1)
[2023-09-03] MEDS ORDERED: FUROSEMIDE 40 MG TAB PO SCH (09:00)
[2023-09-03] MEDS ORDERED: FUROSEMIDE 20 MG TAB PO SCH (09:00)
[2023-09-03] MEDS: PANTOprazole 40 MG TAB PO SCH ×2 (10:11→21:11)
[2023-09-03] MEDS: LANTUS PER UNIT CHARGE SQ SCH (10:14)
--- NOTE | 2023-09-03 10:31 | Hospitalist Progress Note ---
Date of Service September 03, 2023 Assessment & Plan (1) Rectal bleed: Plan: 87-year-old female with past medical history significant for type 2 diabetes, hypothyroidism, hyperparathyroidism, COPD, history of pneumothorax on the right side, AAA, peripheral vascular disease, history of esophageal varices,'s CAD, hypertension, stenosis of left carotid artery, portal hypertensive gastropathy, liver cirrhosis secondary to [place], chronic kidney stage III, mixed stress and urge incontinence, inflammatory arthritis, osteoarthritis, peripheral neuropathy, history of thrombocytopenia, history of pancytopenia, ambulatory dysfunction admitted with recurrent rectal bleed. GI bleed, likely lower Noted bright red blood with BM yesterday Hemoglobin 9.3 on admission, currently 9.6 Last admission last month, pt's hemoglobin was 5.2, received 2 units of pRBCs and refused endoscopy/colonoscopy Blood consent obtained, NPO, gentle fluids Continue home p.o. PPI Close telemetry monitoring GI consult- pt currently agreeable to discussing having the procedure done if anastasia Mosley present. Melany was called and she was agreeable to coming in/being in contact with GI about this. DMII Hgba1c pending Basal/Bolus History of peripheral vascular disease History of stents Holding aspirin and Plavix because of rectal bleed, might need to permanently discontinue if pt does not have scope done. Continue statin Chronic diastolic CH will hold home Lasix as pt receives gentle fluids Resume lasix once pt off fluids and taking PO Monitor for volume overload CKD stage III Presented with creatinine 1.2 Monitor with BMP Liver cirrhosis from [place] Pancytopenia Stable trend CMP, CBC Diet: currently NPO DVT prophylaxis: SCDs in setting of GI bleed Code Status: Full code if there is chance of recovery per admitting provider's discussion with the patient Disposition: PT/OT ordered Admission and Anticipated Discharge Date Admission Date: September 02, 2023 Subjective Pt seen in the AM, waiting for bed in the ED. States she is always dizzy with getting up from bed. States she is scared of having the EGD/Colonoscopy with GI. Was agreeable to further discussion with GI only if her daughter was present. Call placed to anastasia Mosley about 10:30AM, she was agreeable to coming in/being in contact with GI about this. Review of Systems Review of Systems: All systems reviewed & are unremarkable except as noted in Subjective Physical Exam Physical Exam: General: Alert, oriented. No acute distress Skin: No noted rashes or bruises Psych: Appropriate mood and affect Neuro: No gross deficits HEENT: NC/AT CV: RRR Resp: Breath sounds clear bilaterally, no increased effort of breathing. Abdomen: Soft, nontender, nondistended. Extremities: No edema in lower extremities bilaterally. Results & Data Results & Data Vital Signs (Past 12 Hours) Vital Signs Pulse Pulse Resp BP Pulse Ox O2 Del Method 09/03/23 07:11 71 09/03/23 05:49 70 14 98/76 L 95 Room Air 09/03/23 00:00 71 09/03/23 00:34 70 16 Room Air 09/03/23 00:33 70 16 154/78 H 97 Room Air 09/02/23 23:00 67 17 152/67 H 97 Room Air
--- NOTE | 2023-09-03 11:37 | Gastrointestinal Consultation ---
Date of Consultation September 03, 2023 Assessment & Plan (1) Rectal bleed: Plan hematochezia: possibly hemorrhoidal but in the setting of cirrhosis with hx varices and elevated BUN should consider UGI etiology, could also be diverticular bleed. I discussed performing EGD with her and her daughter bon, they will discuss with their family and let the nurse know recs: --keep NPO post midnight for possible EGD tomorrow with [facility] --supportive care --protonix 40 mg BID --start abx for sepsis ppx for GI bleed in a cirrhotic patient rest as per primary team Thank you for allowing me to participate in the care of this patient History of Present Illness Attending Physician: Gracia Dudley MD History of Present Illness 87-year-old female with hx [place] cirrhosis and esophageal varcies, carotid artery stenosis, AAA, PVD, CAD here with hematochezia. She notes she ate a sub yesterday and had multiple bowel movements after, and notes yesterday having 2 episodes of painless hematochezia. She has hemorrhoids she reports and notes anal itching. No further hematochezia since yesterday. No epistaxis, hematemesis. She was here recently with hgb 5.2 and refused endoscopic workup then. hgb now is 9.6 today, BUN elevated at 24, last EGD in 11/2021 with [facility] showed small esophageal varices. labs reviewed. Allergies Allergy/AdvReac Type Severity Reaction Status Date / Time vitamin E (d-alpha Allergy Intermediate ITCHY Unverified 01/01/22 16:17 tocopherol) RASH, HIVES--PER [facility] 09/21/21 ENCOUNTER amoxicillin AdvReac Intermediate STOMACH Unverified 01/01/22 16:17 UPSET--PER [facility] 09/21/21 ENCOUNTER baclofen AdvReac Intermediate Falls Unverified 07/10/23 16:09 clavulanic acid AdvReac Intermediate STOMACH Unverified 01/01/22 16:17 UPSET--PER [facility] 09/21/21 ENCOUNTER ropinirole AdvReac Intermediate Falls Unverified 07/10/23 16:09 tramadol AdvReac Intermediate Falls Unverified 07/10/23 16:09 dulaglutide [From [facility]] AdvReac Vomiting Verified 09/12/22 08:47 Home Medications Medication Instructions Recorded Confirmed Type aspirin 81 mg tablet,delayed 81 mg PO QAM 04/10/19 09/02/23 History release (Kendra Low Dose Aspirin) atorvastatin 20 mg tablet 20 mg PO QPM 04/10/19 09/02/23 History clopidogrel 75 mg tablet 75 mg PO QAM 04/10/19 09/02/23 History ferrous sulfate 325 mg (65 mg 325 mg PO 3XWK 01/01/22 09/02/23 History iron) tablet (FeroSul) gabapentin 300 mg capsule 300 mg PO HS PRN Pain 01/01/22 09/02/23 History insulin degludec 200 unit/mL (3 32 - 40 unit subcut QAM 01/01/22 09/03/23 History mL) subcutaneous pen (Tresiba FlexTouch U-200 insulin) empagliflozin 25 mg tablet 25 mg PO QAM 09/12/22 09/02/23 History (Jardiance) furosemide 40 mg tablet 20 mg PO QAM 09/12/22 09/03/23 History levothyroxine 100 mcg tablet 100 mcg PO QAM 09/12/22 09/02/23 History cranberry 500 mg capsule 500 mg PO HS 07/10/23 09/02/23 History fluticasone propionate 50 1 spray intranasal DAILY PRN 07/10/23 09/02/23 History mcg/actuation nasal Allergy Symptoms spray,suspension lidocaine 5 % topical patch 1 patch transdermal DIRECTED 07/10/23 09/02/23 History PRN Pain trolamine salicylate 10 % topical 1 applic topical DAILY PRN Pain 07/10/23 09/02/23 History cream (Aspercreme) hydroxyzine HCl 10 mg tablet 10 mg PO Q12 PRN Itching 09/02/23 09/02/23 History melatonin 5 mg chewable tablet 10 mg PO HS 09/02/23 09/02/23 History pantoprazole 40 mg tablet,delayed 40 mg PO AMHS 09/02/23 09/02/23 History release Patient History Medical History Acute metabolic encephalopathy EARL (acute kidney injury) Anemia Aneurysm of infrarenal abdominal aorta Aneurysm of infrarenal abdominal aorta Atrial fibrillation with rapid ventricular response Chest pain Cholelithiasis Cholelithiasis Cirrhosis Cirrhosis Cirrhosis CKD (chronic kidney disease) stage 3, GFR 30-59 ml/min CKD (chronic kidney disease), stage III COPD (chronic obstructive pulmonary disease) COPD (chronic obstructive pulmonary disease) Diabetes mellitus, type II Disorder of acid-base balance DM II (diabetes mellitus, type II), controlled DVT prophylaxis Emphysema Fall GERD (gastroesophageal reflux disease) GI bleed Graves disease History of acute renal failure History of Graves' disease HLD (hyperlipidemia) HTN (hypertension) Hypertension Hypoglycemic episode in patient with diabetes mellitus Hypothyroid Hypothyroidism Metabolic acidosis PAD (peripheral artery disease) PAD (peripheral artery disease) PAF (paroxysmal atrial fibrillation) Pancytopenia Pneumonia Sepsis Sinus bradycardia Thrombocytopenia Type 2 diabetes mellitus Surgical History History of appendectomy History of intravascular stent placement Reported Left subclavian, superior mesenteric artery, L iliac, L fempop bypass - [facility] Andrade [facility] Family History Other Diabetes Hypertension Social History Smoking Status: Never smoker Hx Alcohol Use: Yes Alcohol Intake Frequency: Monthly or Less Alcohol Intake Frequency Comment: Holidays Hx Substance Use: No Preferred Language: Occitan Communication Ability: Effective Glue Spreader Required: No Beliefs That Will Affect Care: None marital status: Current Living Situation: Family Current Living Situation Comment: unable to determine How many Children do You have: 3 Feels Safe at Home: Yes Safety Concerns: Feels Safe At This Time Assistive Devices: Cane, Raised Toilet Seat and Walker Review of Systems Constitutional: no fever, no chills and no weight loss Eyes: as per Subjective / HPI Ear, Nose, Mouth, Throat: as per Subjective / HPI Respiratory: no dyspnea and no dyspnea on exertion Cardiovascular: no chest pain and no palpitations Gastrointestinal: as per Subjective / HPI Musculoskeletal: no joint pain and no swelling Integumentary: no rash and no lesions Neurologic: no numbness and no paresthesia Psychiatric: no depression and no anxiety Endocrine: no fatigue Hematologic / Lymphatic: no easy bleeding and no easy bruising Physical Exam Constitutional: WD/WN, vitals as above Eyes: EOM intact bilaterally Neck: normal visual inspection Respiratory: normal respiratory effort, lungs clear to auscultation Cardiovascular: RRR, no murmur, no edema Gastrointestinal (Abdomen): Inspection/Auscultation: abdomen normal to inspection; abdomen not distended Percussion/Palpation: abdomen soft; abdomen nontender and no hepatosplenomegaly Musculoskeletal: Head/Neck/Chest: normocephalic and head atraumatic Extremities: no cyanosis Skin: no rashes, warm and dry Neurologic: moves all extremities Psychiatric: Orientation: alert and cooperative Affect: euthymic affect Results & Data Vital Signs (Past 12 Hours) Vital Signs Pulse Pulse Resp BP Pulse Ox O2 Del Method 09/03/23 07:11 71 09/03/23 05:49 70 14 98/76 L 95 Room Air 09/03/23 00:00 71 09/03/23 00:34 70 16 Room Air 09/03/23 00:33 70 16 154/78 H 97 Room Air PG Care Time/CCT Total # of Minutes Spent Total Time Spent with Patient: Total time spent is greater than 50% in coordination of care (as documented) at patient's floor/unit and/or counseling patient: Coding Level of Care Code 79534 INT INP/OBS CARE 3/75MIN Diagnoses Rectal bleed K62.5
[2023-09-03 12:02] LABS: Hematocrit (blood only) 34.2 % (37.0-47.0); Hemoglobin 10.3 g/dl (12.0-16.0)
--- NOTE | 2023-09-03 12:46 | Electrocardiogram Report ---
Test Reason : Blood Pressure : / mmHG Vent. Rate : 069 BPM Atrial Rate : 069 BPM P-R Int : 206 ms QRS Dur : 088 ms QT Int : 390 ms P-R-T Axes : -24 -29 147 degrees QTc Int : 417 ms Normal sinus rhythm with 1st degree AV block possible Inferior infarct , age undetermined Possible Anterior infarct , age undetermined Abnormal ECG When compared with ECG of 10-JUL-2023 12:32, Premature ventricular complexes are no longer Present Confirmed by Nba Matta ([id number]) on 09/03/2023 12:46:05 PM Referred By: REFERRED SELF Confirmed By:Carlos Alberto Matta
[2023-09-03] MEDS: cefTRIAXone SODIUM 1,000 MG in DEXTROSE 5 % MINI-B 50 ML IV SCH (14:04)
[2023-09-03 17:03] LABS: Hematocrit (blood only) 31.3 % (37.0-47.0); Hemoglobin 9.5 g/dl (12.0-16.0)
[2023-09-03] MEDS ORDERED: Nursing to Pharmacy Communication SCH (17:15)
[2023-09-03] MEDS ORDERED: NON-FORMULARY MEDICATION (Cranberry 500 mg Capsule) PO SCH (21:00)
[2023-09-03] MEDS: ACETAMINOPHEN 325 MG TAB PO PRN (21:09)
[2023-09-03] MEDS: MELATONIN 3 MG TAB PO SCH (21:11)
[2023-09-03] MEDS: hydrOXYzine HCl 10 MG TAB PO PRN (21:11)
[2023-09-03] MEDS: GABAPENTIN 300 MG CAP PO PRN (21:11)
[2023-09-03] MEDS: ATORVASTATIN 20 MG TAB PO SCH (21:11)
[2023-09-04] MEDS: INSULIN ASPART PER UNIT CHARGE SC SCH ×4 (02:07→20:23)
[2023-09-04] MEDS: LEVOTHYROXINE SODIUM 100 MCG TABLET PO SCH (05:59)
[2023-09-04] MEDS ORDERED: D5W AND NSS 1,000 ML IV SCH (06:15)
[2023-09-04 06:18] LABS: Basophils # (auto) 0.01 K/uL (0.00-0.20); Basophils % (auto) 0.3 %; Eosinophils % (auto) 3.4 %; Hematocrit (blood only) 30.6 % (37.0-47.0); Hemoglobin 9.3 g/dl (12.0-16.0); Immature Granulocytes # (auto) 0.01 K/uL (0.01-0.20); Immature Granulocytes % (auto) 0.3 %; Lymphocytes # (auto) 0.71 K/uL (1.20-3.40); Mean Corpuscular Hemoglobin 24.9 pg (25.0-34.0); Mean Corpuscular Hgb Conc 30.4 g/dL (32.0-36.0); Mean Corpuscular Volume 81.8 fL (80.0-100.0); Mean Platelet Volume 11.5 fL (9.4-12.4); Monocytes # (auto) 0.32 K/uL (0.11-0.59); Monocytes % (auto) 10.8 %; Neutrophils # (auto) 1.81 K/uL (1.40-6.50); Neutrophils % (auto) 61.2 %; Platelet Count 68 K/uL (130-400); RDW Coefficient of Variation 18.6 % (11.5-14.5); RDW Standard Deviation 55.9 fL (36.4-46.3); Red Blood Count 3.74 M/uL (4.20-5.40); White Blood Count 2.96 K/ul (4.8-10.8)
[2023-09-04 06:22] LABS: Albumin Globulin Ratio 1.4 (0.9-2); Albumin Level 3.3 gm/dl (3.4-5.0); Bilirubin,Total 1.2 mg/dl (0.2-1.0); Creatinine Clr Calc Pharmacy 37.4 ml/min; Est GFR (African American) 59.1 ml/min; Globulin 2.4 gm/dl (2.5-4.0); Phosphorus 2.9 mg/dl (2.5-4.9); Potassium 4.3 mmol/L (3.5-5.1); Total Protein 5.7 gm/dl (6.0-8.3)
[2023-09-04 07:29] LABS: Estimated Average Glucose 200 mg/dl; Hemoglobin A1C 8.6 % (4.5-5.6)
--- NOTE | 2023-09-04 09:09 | History & Physical Report ---
Date of Service September 04, 2023 Assessment & Plan (1) Anemia requiring transfusions: Plan Proceed with planned EGD. Admission and Anticipated Discharge Date Admission Date: September 02, 2023 History of Present Illness Chief Complaint: anemia and rectal bleeding Primary Care Provider: Lizzie Vaca MD 87 y/o F here today for EGD given anemia and rectal bleeding. History of cirrhosis. Allergies Allergy/AdvReac Type Severity Reaction Status Date / Time vitamin E (d-alpha Allergy Intermediate ITCHY Verified 09/04/23 09:05 tocopherol) RASH, HIVES--PER [facility] 09/21/21 ENCOUNTER amoxicillin AdvReac Intermediate STOMACH Verified 09/04/23 09:05 UPSET--PER [facility] 09/21/21 ENCOUNTER baclofen AdvReac Intermediate Falls Verified 09/04/23 09:05 clavulanic acid AdvReac Intermediate STOMACH Verified 09/04/23 09:05 UPSET--PER [facility] 09/21/21 ENCOUNTER ropinirole AdvReac Intermediate [place] Verified 09/04/23 09:05 tramadol AdvReac Intermediate [place] Verified 09/04/23 09:05 [facility] AdvReac Vomiting Verified 09/04/23 09:05 Home Medications Medication Instructions Recorded Confirmed Type aspirin 81 mg tablet,delayed 81 mg PO QAM 04/10/19 09/02/23 History release (Kendra Low Dose Aspirin) atorvastatin 20 mg tablet 20 mg PO QPM 04/10/19 09/02/23 History clopidogrel 75 mg tablet 75 mg PO QAM 04/10/19 09/02/23 History ferrous sulfate 325 mg (65 mg 325 mg PO 3XWK 01/01/22 09/02/23 History iron) tablet (FeroSul) gabapentin 300 mg capsule 300 mg PO HS PRN Pain 01/01/22 09/02/23 History insulin degludec 200 unit/mL (3 32 - 40 unit subcut QAM 01/01/22 09/03/23 History mL) subcutaneous pen (Tresiba FlexTouch U-200 insulin) empagliflozin 25 mg tablet 25 mg PO QAM 09/12/22 09/02/23 History (Jardiance) furosemide 40 mg tablet 20 mg PO QAM 09/12/22 09/03/23 History levothyroxine 100 mcg tablet 100 mcg PO QAM 09/12/22 09/02/23 History cranberry 500 mg capsule 500 mg PO HS 07/10/23 09/02/23 History fluticasone propionate 50 1 spray intranasal DAILY PRN 07/10/23 09/02/23 History mcg/actuation nasal Allergy Symptoms spray,suspension lidocaine 5 % topical patch 1 patch transdermal DIRECTED 07/10/23 09/02/23 History PRN Pain trolamine salicylate 10 % topical 1 applic topical DAILY PRN Pain 07/10/23 09/02/23 History cream (Aspercreme) hydroxyzine HCl 10 mg tablet 10 mg PO Q12 PRN Itching 09/02/23 09/02/23 History melatonin 5 mg chewable tablet 10 mg PO HS 09/02/23 09/02/23 History pantoprazole 40 mg tablet,delayed 40 mg PO AMHS 09/02/23 09/02/23 History release Past Med/Surg History Medical History Acute metabolic encephalopathy EARL (acute kidney injury) Anemia Aneurysm of infrarenal abdominal aorta Aneurysm of infrarenal abdominal aorta Atrial fibrillation with rapid ventricular response Chest pain Cholelithiasis Cholelithiasis Cirrhosis Cirrhosis Cirrhosis CKD (chronic kidney disease) stage 3, GFR 30-59 ml/min CKD (chronic kidney disease), stage III COPD (chronic obstructive pulmonary disease) COPD (chronic obstructive pulmonary disease) Diabetes mellitus, type II Disorder of acid-base balance DM II (diabetes mellitus, type II), controlled DVT prophylaxis Emphysema Fall GERD (gastroesophageal reflux disease) GI bleed Graves disease History of acute renal failure History of Graves' disease HLD (hyperlipidemia) HTN (hypertension) Hypertension Hypoglycemic episode in patient with diabetes mellitus Hypothyroid Hypothyroidism Metabolic acidosis PAD (peripheral artery disease) PAD (peripheral artery disease) PAF (paroxysmal atrial fibrillation) Pancytopenia Pneumonia Sepsis Sinus bradycardia Thrombocytopenia Type 2 diabetes mellitus Surgical History History of appendectomy History of intravascular stent placement Reported Left subclavian, superior mesenteric artery, L iliac, [facility] Family History Other Diabetes Hypertension Social History Smoking Status: Never smoker Hx Alcohol Use: Yes Alcohol Intake Frequency: Monthly or Less Alcohol Intake Frequency Comment: Holidays Hx Substance Use: No Preferred Language: [place] Communication Ability: Effective Unit Educator Required: No Beliefs That Will Affect Care: None marital status: Current Living Situation: Family Current Living Situation Comment: unable to determine How many Children do You have: 3 Feels Safe at Home: Yes Assistive Devices: Cane, Raised Toilet Seat and Walker Review of Systems All systems reviewed & are unremarkable except as noted in HPI & below Physical Exam Constitutional: WD/WN, vitals as above Respiratory: normal respiratory effort, lungs clear to auscultation Cardiovascular: RRR, no murmur, no edema Gastrointestinal (Abdomen): normal bowel sounds, soft, nontender, no hepatosplenomegaly Psychiatric: A+Ox3, euthymic affect Results & Data Vital Signs (Past 12 Hours) Vital Signs Temp Pulse Pulse Resp BP Pulse Ox O2 Del Method 09/04/23 08:03 67 09/04/23 07:30 36.7 C 68 16 183/71 H 94 Room Air 09/04/23 02:29 36.8 C 68 16 155/55 H 90 Room Air 09/03/23 23:05 36.7 C 77 18 171/52 H 91 Room Air 09/03/23 23:58 71 Code Status & VTE Plan VTE Prophylaxis Plan VTE Prophylaxis will be ordered: Yes
[2023-09-04] MEDS ORDERED: LIDOCAINE 2% 2 ML VIAL/AMP(20MG/ML) INFIL ONE ×2 (09:20)
[2023-09-04] MEDS ORDERED: PROPOFOL IV EMULSION 10 MG/ML 20 ML VIAL IV ONE (09:20)
--- NOTE | 2023-09-04 09:21 | Anesthesiology Consultation ---
Date of Service September 04, 2023 Assessment & Plan Chart Review Chart Review: Acceptable Risk for Surgery and Patient NOT seen in Pre Admission Testing Consults Requested none ASA ASA4 Proposed Anesthesia Anesthesia Type: MAC Risk / Benefits Reviewed With: PT / POA / Parent / Guardian, Accepts Plan and Informed Consent Obtained History Surgery Operation Date: 09/04/23 16:00 Proposed Procedures p Esophagogastroduodenoscopy Jessy Jiménez, Height/Weight Height: 5 ft Weight: 56.1 kg Allergies Allergy/AdvReac Type Severity Reaction Status Date / Time vitamin E (d-alpha Allergy Intermediate ITCHY Verified 09/04/23 09:05 tocopherol) RASH, HIVES--PER [facility] 09/21/21 ENCOUNTER amoxicillin AdvReac Intermediate STOMACH Verified 09/04/23 09:05 UPSET--PER [facility] 09/21/21 ENCOUNTER baclofen AdvReac Intermediate Falls Verified 09/04/23 09:05 clavulanic acid AdvReac Intermediate STOMACH Verified 09/04/23 09:05 UPSET--PER [facility] 09/21/21 ENCOUNTER ropinirole AdvReac Intermediate Falls Verified 09/04/23 09:05 tramadol AdvReac Intermediate [place] Verified 09/04/23 09:05 dulaglutide [From [facility]] AdvReac Vomiting Verified 09/04/23 09:05 Medications Home Medications Medication Instructions Recorded Confirmed Last Taken aspirin 81 mg tablet,delayed 81 mg PO QAM 04/10/19 09/02/23 07/10/23 release (Kendra Low Dose Aspirin) atorvastatin 20 mg tablet 20 mg PO QPM 04/10/19 09/02/23 01/01/22 09:00 clopidogrel 75 mg tablet 75 mg PO QAM 04/10/19 09/02/23 07/10/23 ferrous sulfate 325 mg (65 mg 325 mg PO 3XWK 01/01/22 09/02/23 07/10/23 iron) tablet (FeroSul) gabapentin 300 mg capsule 300 mg PO HS PRN Pain 01/01/22 09/02/23 12/31/21 21:00 insulin degludec 200 unit/mL (3 32 - 40 unit subcut QAM 01/01/22 09/03/23 07/10/23 mL) subcutaneous pen (Tresiba FlexTouch U-200 insulin) empagliflozin 25 mg tablet 25 mg PO QAM 09/12/22 09/02/23 07/10/23 (Jardiance) furosemide 40 mg tablet 20 mg PO QAM 09/12/22 09/03/23 07/10/23 levothyroxine 100 mcg tablet 100 mcg PO QAM 09/12/22 09/02/23 07/10/23 cranberry 500 mg capsule 500 mg PO HS 07/10/23 09/02/23 Unknown fluticasone propionate 50 1 spray intranasal DAILY PRN 07/10/23 09/02/23 Unknown mcg/actuation nasal Allergy Symptoms spray,suspension lidocaine 5 % topical patch 1 patch transdermal DIRECTED 07/10/23 09/02/23 Unknown PRN Pain trolamine salicylate 10 % topical 1 applic topical DAILY PRN Pain 07/10/23 09/02/23 Unknown cream (Aspercreme) hydroxyzine HCl 10 mg tablet 10 mg PO Q12 PRN Itching 09/02/23 09/02/23 Unknown melatonin 5 mg chewable tablet 10 mg PO HS 09/02/23 09/02/23 Unknown pantoprazole 40 mg tablet,delayed 40 mg PO AMHS 09/02/23 09/02/23 Unknown release Active Medications Generic Name Dose Route Start Last Admin Trade Name Freq PRN Reason Stop Dose Admin Acetaminophen 650 mg 09/03/23 00:27 09/03/23 21:09 Acetaminophen 325 Mg Tab PO 10/03/23 00:26 650 mg Q4H PRN Administration Pain or Fever Atorvastatin Calcium 20 mg 09/03/23 21:00 09/03/23 21:11 Atorvastatin 20 Mg Tab PO 10/03/23 20:59 20 mg QPM AAKASH Administration Furosemide 10 mg 09/03/23 09:00 09/03/23 10:13 Furosemide 20 Mg Tab PO 10/03/23 08:59 10 mg QAM AAKASH Administration Gabapentin 300 mg 09/03/23 00:27 09/03/23 21:11 Gabapentin 300 Mg Cap PO 10/03/23 00:26 300 mg HS PRN Administration Pain Hydroxyzine HCl 10 mg 09/03/23 00:27 09/03/23 21:11 Hydroxyzine Hcl 10 Mg Tab PO 10/03/23 00:26 10 mg Q12 PRN Administration Itching Ceftriaxone Sodium 1,000 mg/ 50 mls @ 100 mls/hr 09/03/23 12:45 09/03/23 14:42 Dextrose IV 09/13/23 12:44 Infused Q24H AAKASH Infusion Protocol Dextrose/Sodium Chloride 1,000 mls @ 75 mls/hr 09/04/23 06:15 09/04/23 06:13 D5w And Nss IV 09/04/23 19:34 75 mls/hr .[id number] AAKASH Administration Insulin Aspart 0 units 09/03/23 01:15 09/04/23 05:58 Insulin Aspart Per Unit Charge SC 10/03/23 01:14 Not Given Q6 AAKASH Insulin Glargine 20 units 09/03/23 09:00 09/03/23 10:14 Lantus Per Unit Charge SQ 10/03/23 08:59 20 units DAILY AAKASH Administration Levothyroxine Sodium 100 mcg 09/03/23 06:30 09/04/23 05:59 Levothyroxine Sodium 100 Mcg Tablet PO 10/03/23 06:29 100 mcg DAILYBB AAKASH Administration Melatonin 9 mg 09/03/23 21:00 09/03/23 21:11 Melatonin 3 Mg Tab PO 10/03/23 20:59 9 mg HS AAKASH Administration Miscellaneous 1 each 09/03/23 21:00 09/03/23 21:20 Remove Lidoderm Patch N/A 10/03/23 20:59 Not Given DAILY@2100 AAKASH Pantoprazole Sodium 40 mg 09/03/23 09:00 09/03/23 21:11 Pantoprazole 40 Mg Tab PO 10/03/23 08:59 40 mg BID AAKASH Administration NPO Date Last Intake of Fluids: 09/04/23 Time Last Intake of Fluids: 06:00 Date Last Intake of Solids: 09/03/23 Time Last Intake of Solids: 18:00 Past Medical History Medical History Acute metabolic encephalopathy EARL (acute kidney injury) Anemia Aneurysm of infrarenal abdominal aorta Aneurysm of infrarenal abdominal aorta Atrial fibrillation with rapid ventricular response Chest pain Cholelithiasis Cholelithiasis Cirrhosis Cirrhosis Cirrhosis CKD (chronic kidney disease) stage 3, GFR 30-59 ml/min CKD (chronic kidney disease), stage III COPD (chronic obstructive pulmonary disease) COPD (chronic obstructive pulmonary disease) Diabetes mellitus, type II Disorder of acid-base balance DM II (diabetes mellitus, type II), controlled DVT prophylaxis Emphysema Fall GERD (gastroesophageal reflux disease) GI bleed Graves disease History of acute renal failure History of Graves' disease HLD (hyperlipidemia) HTN (hypertension) Hypertension Hypoglycemic episode in patient with diabetes mellitus Hypothyroid Hypothyroidism Metabolic acidosis PAD (peripheral artery disease) PAD (peripheral artery disease) PAF (paroxysmal atrial fibrillation) Pancytopenia Pneumonia Sepsis Sinus bradycardia Thrombocytopenia Type 2 diabetes mellitus Exercise / Class Metabolic Activity II 4-5 Yardwork/Stairs/Walk up hill Past Family History Family History Other Diabetes Hypertension Past Surgical History Surgical History History of appendectomy History of intravascular stent placement Reported Left subclavian, superior mesenteric artery, L iliac, L fempop bypass - Dr Lupe Mann [place] Past Anesthesia History No Hx of Anesthesia Complications and No Family Hx of Anesthesia Complications History of PONV No Hx of PONV and No Hx of Motion Sickness Social History Smoking Status: Never smoker Hx Alcohol Use: Yes alcohol intake frequency: other Hx Substance Use: No Physical Exam Vital Signs Last Vital Signs Temp 36.2 C L 09/04/23 09:10 Pulse 65 09/04/23 09:10 Resp 18 09/04/23 09:10 BP 202/75 H 09/04/23 09:10 Pulse Ox 65 L 09/04/23 09:10 O2 Del Method Room Air 09/04/23 09:10 ENMT Mouth: + dentures Thyromental Distance: > or= 3.5 Finger Breadths Mallampati Class: II Neck normal visual inspection Respiratory normal respiratory effort Auscultation: lungs clear to auscultation bilaterally Cardiovascular Rate/Rhythm: regular rate and regular rhythm Psychiatric Orientation: alert Testing Laboratory Results 09/04/23 05:39 09/04/23 05:39 PT 11.8 Seconds (9.0-12.0) 09/02/23 18:39 INR 1.1 (0.9-1.1) 09/02/23 18:39 APTT 28.5 Seconds (21.0-31.0) 09/02/23 18:39 Hemoglobin A1c 8.6 % (4.5-5.6) H 09/03/23 06:07 Blood Type B Positive 09/02/23 18:39 Antibody Screen NEGATIVE 09/02/23 18:39 09/04/23 05:57 POC Glucose 74
--- NOTE | 2023-09-04 09:47 | GI REPORT ---
Patient Name: Sharifa Jenkins Procedure Date: 09/04/2023 9:18 AM Date of : 1935 Admit Type: Inpatient Age: 87 Gender: Female Attending MD: Laura Jiménez DO, Procedure: Upper GI endoscopy Providers: Laura Jiménez DO Referring MD: Ed Licea Indications: Hematochezia Patient Profile: This is an 87 year old female. Refer to note in patient chart for documentation of history and physical. Medicines: General Anesthesia Complications: No immediate complications. Estimated Blood Loss: Estimated blood loss: none. Procedure: Pre-Anesthesia Assessment: - Prior to the procedure, a History and Physical was performed, and patient medications and allergies were reviewed. The risks and benefits of the procedure and the sedation options and risks were discussed with the patient. All questions were answered and informed consent was obtained. Patient identification and proposed procedure were verified by the physician, the nurse and the jigman in the procedure room. Mental Status Examination: alert and oriented. Airway Examination: Mallampati Class II (the uvula but not tonsillar pillars visualized). Respiratory Examination: clear to auscultation. CV Examination: RRR, no murmurs, no S3 or S4. Prophylactic Antibiotics: The patient does not require prophylactic antibiotics. Prior Anticoagulants: The patient has taken Plavix (clopidogrel), last dose was 2 days prior to procedure. ASA Grade Assessment: IV - A patient with severe systemic disease that is a constant threat to life. After reviewing the risks and benefits, the patient was deemed in satisfactory condition to undergo the procedure. The anesthesia plan was to use general anesthesia. Immediately prior to administration of medications, the patient was re-assessed for adequacy to receive sedatives. The physical status of the patient was re-assessed after the procedure. After obtaining informed consent, the endoscope was passed under direct vision. Throughout the procedure, the patient's blood pressure, pulse, and oxygen saturations were monitored continuously. The Endoscope was introduced through the mouth, and advanced to the second part of duodenum. The upper GI endoscopy was accomplished without difficulty. The patient tolerated the procedure well. Findings: The Z-line was regular and was found 35 cm from the incisors. Grade I varices were found in the lower third of the esophagus. The exam of the esophagus was otherwise normal. Severe portal hypertensive gastropathy was found in the entire examined stomach. There is no endoscopic evidence of varices in the entire examined stomach. Friable mucosa without active bleeding was found in the duodenal bulb and in the second portion of the duodenum. Impression: - Z-line regular, 35 cm from the incisors. - 1 column of grade I esophageal varices without any red casimiro signs or stigmata of recent bleeding. - Portal hypertensive gastropathy. No gastric varices. - Friable duodenal mucosa. - No specimens collected. Recommendation: - Return patient to [facility] for ongoing care. - Resume previous diet. - Continue present medications. - Recommend outpatient colonoscopy since patient has had no further bleeding and reports last colonoscopy around 20 years ago. Recommend to complete after patient is able to hold plavix for 5 days. Her bleeding she had sounds hemmorhoidal as she reports it only occured twice with wiping and she had some anal itching. Laura Jiménez, DO 09/04/2023 9:47:25 AM Note Initiated On: 09/04/2023 9:18 AM Number of Addenda: 0 I attest to the content of the Intraoperative Record and orders documented therein, exceptions below {[id number]}
--- NOTE | 2023-09-04 10:31 | Anesthesiology Progress Note ---
Date of Service September 04, 2023 Anesthesia Post Procedure Vital Signs Vital Signs: Temp Pulse Pulse Pulse Resp BP Pulse Ox 09/04/23 10:11 62 65 16 108/50 L 98 09/04/23 09:56 65 65 16 106/50 L 98 09/04/23 09:41 66 66 16 123/37 L 99 09/04/23 09:10 36.2 C L 65 65 18 202/75 H 65 L 09/04/23 08:03 67 09/04/23 07:30 36.7 C 68 16 183/71 H 94 09/04/23 02:29 36.8 C 68 16 155/55 H 90 09/03/23 23:05 36.7 C 77 18 171/52 H 91 09/03/23 23:58 71 09/03/23 20:01 36.5 C 70 12 170/52 H 94 09/03/23 14:01 71 09/03/23 13:59 36.8 C 70 13 163/64 H 93 O2 Del Method 09/04/23 10:11 Room Air 09/04/23 09:56 Room Air 09/04/23 09:41 Room Air 09/04/23 09:10 Room Air 09/04/23 08:03 09/04/23 07:30 Room Air 09/04/23 02:29 Room Air 09/03/23 23:05 Room Air 09/03/23 23:58 09/03/23 20:01 Room Air 09/03/23 14:01 09/03/23 13:59 Room Air Transfer of Care Handoff Completed per policy Notes Mental Status: alert / awake / arousable Patient Amnestic to Procedure: Yes Nausea / Vomiting: adequately controlled Pain: adequately controlled Airway Patency, RR, SpO2: stable & adequate BP & HR: stable & adequate Hydration State: stable & adequate Anesthetic Complications: no major complications apparent
--- NOTE | 2023-09-04 10:56 | Communication Note ---
Date of Service: September 04, 2023 EGD completed today notable only for 1 column of non-bleeding grade I EV and severe PHG. No bleeding seen. Suspect her bleeding was related to hemorrhoids given patient's description of small rectal bleeding with wiping and anal itching. However, her last colonoscopy was over 20 years ago per her report so she should get one completed in outpatient setting. This is not needed inpatient as she has had no further bleeding and her last Plavix dose was just 2 days ago. We will arrange outpatient colonoscopy for her when she is able to hold Plavix dose for 5 days. Laura Jiménez, DO Gastroenterology and Hepatology
[2023-09-04] MEDS: FERROUS SULFATE 325 MG TAB PO SCH (11:13)
[2023-09-04] MEDS: ACETAMINOPHEN 325 MG TAB PO PRN ×2 (11:22→20:23)
[2023-09-04] MEDS: PANTOprazole 40 MG TAB PO SCH ×2 (11:23→20:25)
[2023-09-04] MEDS ORDERED: NITROGLYCERIN 2% OINTMENT 30GM TUBE EXT ONE (11:34)
[2023-09-04] MEDS ORDERED: Nursing to Pharmacy Communication SCH (11:45)
[2023-09-04] MEDS: LANTUS PER UNIT CHARGE SQ SCH (12:28)
[2023-09-04] MEDS: cefTRIAXone SODIUM 1,000 MG in DEXTROSE 5 % MINI-B 50 ML IV SCH (13:06)
[2023-09-04] MEDS: hydrOXYzine HCl 10 MG TAB PO PRN ×2 (13:10→20:24)
--- NOTE | 2023-09-04 16:05 | Hospitalist Progress Note ---
Date of Service September 04, 2023 Assessment & Plan (1) Rectal bleed: Plan: 87-year-old female with past medical history significant for type 2 diabetes, hypothyroidism, hyperparathyroidism, COPD, history of pneumothorax on the right side, AAA, peripheral vascular disease, history of esophageal varices,'s CAD, hypertension, stenosis of left carotid artery, portal hypertensive gastropathy, liver cirrhosis secondary to [place], chronic kidney stage III, mixed stress and urge incontinence, inflammatory arthritis, osteoarthritis, peripheral neuropathy, history of thrombocytopenia, history of pancytopenia, ambulatory dysfunction admitted with recurrent rectal bleed. GI bleed, likely lower Noted bright red blood with BM yesterday Hemoglobin 9.3 on admission, currently 9.6 Last admission last month, pt's hemoglobin was 5.2, received 2 units of pRBCs and refused endoscopy/colonoscopy Blood consent obtained, NPO, gentle fluids Continue home p.o. PPI Close telemetry monitoring GI consult- pt currently agreeable to discussing having the procedure done if daughter Melany present. Melany was called and she was agreeable to coming in/being in contact with GI about this. Status post EGD-no active source of bleeding, grade 1 esophageal varices without any red casimiro sign or stigmata of bleeding. She will have colonoscopy as an outpatient and she did not have any bowel movement and no more blood per rectum Diet has been started and she will be observed overnight if hemoglobin remains stable tomorrow she will be discharged home tomorrow Discussed with the family members DMII Hgba1c pending Basal/Bolus History of peripheral vascular disease History of stents Holding aspirin and Plavix because of rectal bleed, might need to permanently discontinue if pt does not have scope done. Continue statin Denies any symptoms Chronic diastolic CH will hold home Lasix as pt receives gentle fluids Resume lasix once pt off fluids and taking PO Monitor for volume overload We will continue her outpatient medications CKD stage III Presented with creatinine 1.2 Monitor with BMP Liver cirrhosis from [place] Pancytopenia Stable trend CMP, CBC Diet: currently NPO DVT prophylaxis: SCDs in setting of GI bleed Code Status: Full code if there is chance of recovery per admitting provider's discussion with the patient Disposition: PT/OT ordered-recommended home Admission and Anticipated Discharge Date Admission Date: September 02, 2023 Subjective 09/04/2023 The patient was seen and examined in medical telemetry unit She is a status post negative EGD No more blood per rectum and the bowel is not moved yet Started with regular diet and she might be going home tomorrow Review of Systems Review of Systems: All systems reviewed and are unremarkable except as noted below Physical Exam Physical Exam: Lying in bed comfortably Constitutional: + ill appearing and + thin Eyes: PERRL, conjunctivae normal, anicteric sclerae ENMT: external ear and nose normal, oropharynx normal Neck: trachea midline, no thyromegaly Respiratory: no respiratory distress Auscultation: lungs clear to auscultation bilaterally Cardiovascular: Rate/Rhythm: regular rate and regular rhythm; not tachycardic Heart Sounds: normal S1, normal S2 and + murmur Extremities: + edema (Trace edema bilaterally) Gastrointestinal (Abdomen): Inspection/Auscultation: normal bowel sounds; abdomen not distended Percussion/Palpation: abdomen soft; abdomen nontender Musculoskeletal: No acute arthritis involving any of the joint Neurologic: normal touch/pain/proprioception and moves all extremities; no focal motor deficits Lymphatic: no cervical or axillary lymphadenopathy Results & Data Results & Data Vital Signs (Past 12 Hours) Vital Signs Temp Pulse Pulse Pulse Resp BP Pulse Ox 09/04/23 11:44 36.5 C 66 20 206/66 H 95 09/04/23 11:20 36.4 C L 64 16 200/64 H 95 09/04/23 10:11 62 65 16 108/50 L 98 09/04/23 09:56 65 65 16 106/50 L 98 09/04/23 09:41 66 66 16 123/37 L 99 09/04/23 09:10 36.2 C L 65 65 18 202/75 H 65 L 09/04/23 08:03 67 09/04/23 07:30 36.7 C 68 16 183/71 H 94 O2 Del Method 09/04/23 11:44 Room Air 09/04/23 11:20 Room Air 09/04/23 10:11 Room Air 09/04/23 09:56 Room Air 09/04/23 09:41 Room Air 09/04/23 09:10 Room Air 09/04/23 08:03 09/04/23 07:30 Room Air Laboratory Results Short CBC 09/03/23 09/04/23 Range/Units 16:38 05:39 WBC 2.96 L (4.8-10.8) K/ul Hgb 9.5 L 9.3 L (12.0-16.0) g/dl Hct 31.3 L 30.6 L (37.0-47.0) % Plt Count 68 L (130-400) K/uL BMP 09/04/23 05:39 Sodium 142 Potassium 4.3 Chloride 114 H Carbon Dioxide 24 BUN 20 Creatinine 1.00 Glucose 76 Calcium 9.0 Liver Function 09/04/23 Range/Units 05:39 Total Bilirubin 1.2 H (0.2-1.0) mg/dl AST 22 (13-39) U/L ALT 17 (7-52) U/L Alkaline Phosphatase 111 H (34-104) U/L Albumin 3.3 L (3.4-5.0) gm/dl Medications Administered Current Inpatient Medications Acetaminophen (Acetaminophen 325 Mg Tab) 650 mg PO Q4H PRN PRN Reason: Pain or Fever Stop: 10/03/23 00:26 Last Admin: 09/04/23 11:22 Dose: 650 mg Atorvastatin Calcium (Atorvastatin 20 Mg Tab) 20 mg PO QPM [facility] Stop: 10/03/23 20:59 Last Admin: 09/03/23 21:11 Dose: 20 mg Dextrose (Dextrose 50% 50 Ml Syringe) 25 - 50 ml IV UD PRN; Protocol PRN Reason: Hypoglycemia Protocol Stop: 10/03/23 00:26 Ferrous Sulfate (Ferrous Sulfate 325 Mg Tab) 325 mg PO MoWeFr@0900 [facility] Stop: 10/04/23 08:59 Last Admin: 09/04/23 11:13 Dose: Not Given Fluticasone Propionate (Fluticasone Propionate Na Spr 16 Gm Btl) 1 sprays NA DAILY PRN PRN Reason: Allergy Symptoms Stop: 10/03/23 00:26 Furosemide (Furosemide 20 Mg Tab) 10 mg PO QAM [facility] Stop: 10/03/23 08:59 Last Admin: 09/03/23 10:13 Dose: 10 mg Gabapentin (Gabapentin 300 Mg Cap) 300 mg PO HS PRN PRN Reason: Pain Stop: 10/03/23 00:26 Last Admin: 09/03/23 21:11 Dose: 300 mg Glucagon (Glucagon For Inj 1 Mg Vial) 1 mg SQ UD PRN; Protocol PRN Reason: Hypoglycemia Protocol Stop: 10/03/23 00:26 Glucose (Glucose 10 Tab/Tube) 4 - 8 tab PO UD PRN; Protocol PRN Reason: Hypoglycemia Treatment Stop: 10/03/23 00:26 Glucose (Glucose 40% Gel 15 Gm Tube) 15 - 30 gm PO UD PRN; Protocol PRN Reason: Hypoglycemia Protocol Stop: 10/03/23 00:26 Hydroxyzine HCl (Hydroxyzine Hcl 10 Mg Tab) 10 mg PO Q12 PRN PRN Reason: Itching Stop: 10/03/23 00:26 Last Admin: 09/04/23 13:10 Dose: 10 mg Ceftriaxone Sodium 1,000 mg/ (Dextrose) 50 mls @ 100 mls/hr IV Q24H [facility]; Protocol Stop: 09/13/23 12:44 Last Infusion: 09/04/23 13:44 Dose: Infused Insulin Aspart (Insulin Aspart Per Unit Charge) 0 units SC ACHS [facility] Stop: 10/04/23 16:29 Insulin Glargine (Lantus Per Unit Charge) 20 units SQ DAILY [facility] Stop: 10/03/23 08:59 Last Admin: 09/04/23 12:28 Dose: Not Given Levothyroxine Sodium (Levothyroxine Sodium 100 Mcg Tablet) 100 mcg PO DAILYBB [facility] Stop: 10/03/23 06:29 Last Admin: 09/04/23 05:59 Dose: 100 mcg Lidocaine (Lidocaine 5% 1 Patch) 1 patch TD DAILY PRN PRN Reason: Pain Stop: 10/03/23 00:26 Melatonin (Melatonin 3 Mg Tab) 9 mg PO HS [facility] Stop: 10/03/23 20:59 Last Admin: 09/03/23 21:11 Dose: 9 mg Miscellaneous (Remove Lidoderm Patch) 1 each N/A DAILY@2100 [facility] Stop: 10/03/23 20:59 Last Admin: 09/03/23 21:20 Dose: Not Given Miscellaneous (Carbohydrates For Hypoglycemia ) 15 - 30 gm PO UD PRN PRN Reason: Hypoglycemia Protocol Stop: 10/03/23 00:26 Last Admin: 09/04/23 12:30 Dose: 15 gm Nitroglycerin (Nitroglycerin Sl 0.4 Mg/Tab Tab) 0.4 mg SL Q5M PRN PRN Reason: Chest Pain Stop: 10/03/23 00:26 Pantoprazole Sodium (Pantoprazole 40 Mg Tab) 40 mg PO BID [facility] Stop: 10/03/23 08:59 Last Admin: 09/04/23 11:23 Dose: 40 mg Trolamine Salicylate (Trolamine Salicylate 10% Crm 255 Appln/85 Gm Tube) 1 appln EXT DAILY PRN PRN Reason: Pain Stop: 10/03/23 00:26
[2023-09-04] MEDS ORDERED: cloNIDine HCL 0.1 MG TAB PO STA (20:11)
[2023-09-04] MEDS: MELATONIN 3 MG TAB PO SCH (20:23)
[2023-09-04] MEDS: ATORVASTATIN 20 MG TAB PO SCH (20:24)
[2023-09-04] MEDS: GABAPENTIN 300 MG CAP PO PRN (20:25)
[2023-09-05] MEDS: LEVOTHYROXINE SODIUM 100 MCG TABLET PO SCH (05:08)
[2023-09-05 06:46] LABS: Basophils # (auto) 0.01 K/uL (0.00-0.20); Basophils % (auto) 0.4 %; Eosinophils # (auto) 0.07 K/uL (0.00-0.50); Eosinophils % (auto) 3.1 %; Hematocrit (blood only) 28.7 % (37.0-47.0); Hemoglobin 8.8 g/dl (12.0-16.0); Lymphocytes # (auto) 0.73 K/uL (1.20-3.40); Mean Corpuscular Hemoglobin 25.4 pg (25.0-34.0); Mean Corpuscular Hgb Conc 30.7 g/dL (32.0-36.0); Mean Corpuscular Volume 82.7 fL (80.0-100.0); Mean Platelet Volume 11.2 fL (9.4-12.4); Monocytes # (auto) 0.24 K/uL (0.11-0.59); Monocytes % (auto) 10.5 %; Neutrophils # (auto) 1.23 K/uL (1.40-6.50); Platelet Count 58 K/uL (130-400); RDW Coefficient of Variation 18.3 % (11.5-14.5); RDW Standard Deviation 55.8 fL (36.4-46.3); Red Blood Count 3.47 M/uL (4.20-5.40); White Blood Count 2.28 K/ul (4.8-10.8)
[2023-09-05 07:21] LABS: Albumin Globulin Ratio 1.3 (0.9-2); Albumin Level 3.1 gm/dl (3.4-5.0); BUN Creatinine Ratio 19.4 (10-20); Bilirubin,Total 0.7 mg/dl (0.2-1.0); Calcium 8.8 mg/dl (8.6-10.3); Creatinine Clr Calc Pharmacy 24.6 ml/min; Est GFR (African American) 43.4 ml/min; Est GFR (Non-African American) 37.5 ml/min; Globulin 2.4 gm/dl (2.5-4.0); Phosphorus 3.2 mg/dl (2.5-4.9); Potassium 4.2 mmol/L (3.5-5.1); Total Protein 5.5 gm/dl (6.0-8.3)
[2023-09-05] MEDS: PANTOprazole 40 MG TAB PO SCH ×2 (08:32→20:23)
[2023-09-05] MEDS: INSULIN ASPART PER UNIT CHARGE SC SCH ×4 (09:57→20:26)
[2023-09-05] MEDS: LANTUS PER UNIT CHARGE SQ SCH (09:58)
[2023-09-05] MEDS ORDERED: SODIUM CHLORIDE 0.9% 1,000 ML IV SCH (11:30)
[2023-09-05] MEDS: hydrOXYzine HCl 10 MG TAB PO PRN ×2 (13:23→20:24)
--- NOTE | 2023-09-05 14:31 | Hospitalist Progress Note ---
Date of Service September 05, 2023 Assessment & Plan (1) Rectal bleed: Plan: 87-year-old female with past medical history significant for type 2 diabetes, hypothyroidism, hyperparathyroidism, COPD, history of pneumothorax on the right side, AAA, peripheral vascular disease, history of esophageal varices,'s CAD, hypertension, stenosis of left carotid artery, portal hypertensive gastropathy, liver cirrhosis secondary to [place], chronic kidney stage III, mixed stress and urge incontinence, inflammatory arthritis, osteoarthritis, peripheral neuropathy, history of thrombocytopenia, history of pancytopenia, ambulatory dysfunction admitted with recurrent rectal bleed. GI bleed, likely lower Noted bright red blood with BM yesterday Hemoglobin 9.3 on admission, currently 9.6 Last admission last month, pt's hemoglobin was 5.2, received 2 units of pRBCs and refused endoscopy/colonoscopy Blood consent obtained, NPO, gentle fluids Continue home p.o. PPI Close telemetry monitoring GI consult- pt currently agreeable to discussing having the procedure done if daughter Melany present. Melany was called and she was agreeable to coming in/being in contact with GI about this. Status post EGD-no active source of bleeding, grade 1 esophageal varices without any red casimiro sign or stigmata of bleeding. She will have colonoscopy as an outpatient and she did not have any bowel movement and no more blood per rectum Diet has been started and she will be observed overnight if hemoglobin remains stable tomorrow she will be discharged home tomorrow Discussed with the family members No more bleeding but the hemoglobin went down to 8.8 with increase in BUN and creatinine to 25/1.29 She will be staying tonight to make sure no more bleeding from upper GI We will give a small amount of intravenous fluid and she was advised to drink more fluid Repeat CBC and PRP in the morning DMII Hgba1c pending Basal/Bolus History of peripheral vascular disease History of stents Holding aspirin and Plavix because of rectal bleed, might need to permanently discontinue if pt does not have scope done. Continue statin Denies any symptoms Chronic diastolic CH will hold home Lasix as pt receives gentle fluids Resume lasix once pt off fluids and taking PO Monitor for volume overload We will continue her outpatient medications No signs and or symptoms of fluid overload CKD stage III Presented with creatinine 1.2 Monitor with BMP Liver cirrhosis from [place] Pancytopenia Stable trend CMP, CBC Diet: currently NPO DVT prophylaxis: SCDs in setting of GI bleed Code Status: Full code if there is chance of recovery per admitting provider's discussion with the patient Disposition: PT/OT ordered-recommended home Likely discharge tomorrow Admission and Anticipated Discharge Date Admission Date: September 02, 2023 Subjective 09/04/2023 The patient was seen and examined in medical telemetry unit She is a status post negative EGD No more blood per rectum and the bowel is not moved yet Started with regular diet and she might be going home tomorrow 09/05/2023 The patient was seen and examined in medical telemetry unit She has been feeling better No more bleeding per rectum Noted to have a slight decrease in hemoglobin and increasing BUN and creatinine She will be staying tonight to make sure that she is not bleeding following EGD Review of Systems Review of Systems: All systems reviewed and are unremarkable except as noted below Physical Exam Physical Exam: Lying in bed comfortably Constitutional: + ill appearing and + thin Eyes: PERRL, conjunctivae normal, anicteric sclerae ENMT: external ear and nose normal, oropharynx normal Neck: trachea midline, no thyromegaly Respiratory: no respiratory distress Auscultation: lungs clear to auscultation bilaterally Cardiovascular: Rate/Rhythm: regular rate and regular rhythm; not tachycardic Heart Sounds: normal S1, normal S2 and + murmur Extremities: + edema (Trace edema bilaterally) Gastrointestinal (Abdomen): Inspection/Auscultation: normal bowel sounds; abdomen not distended Percussion/Palpation: abdomen soft; abdomen nontender Musculoskeletal: No acute arthritis involving any of the joint Neurologic: normal touch/pain/proprioception and moves all extremities; no focal motor deficits Lymphatic: no cervical or axillary lymphadenopathy Results & Data Results & Data Vital Signs (Past 12 Hours) Vital Signs Temp Pulse Pulse Resp BP Pulse Ox O2 Del Method 09/05/23 12:01 36.3 C L 64 16 154/69 H 95 Room Air 09/05/23 08:28 36.4 C L 60 16 154/74 H 93 Room Air 09/05/23 07:00 61 09/05/23 02:51 36.5 C 68 12 115/65 91 Room Air Laboratory Results Short CBC 09/05/23 Range/Units 06:00 WBC 2.28 L (4.8-10.8) K/ul Hgb 8.8 L (12.0-16.0) g/dl Hct 28.7 L (37.0-47.0) % Plt Count 58 L (130-400) K/uL BMP 09/05/23 06:00 Sodium 140 Potassium 4.2 Chloride 113 H Carbon Dioxide 23 BUN 25 H Creatinine 1.29 H Glucose 183 H Calcium 8.8 Liver Function 09/05/23 Range/Units 06:00 Total Bilirubin 0.7 D (0.2-1.0) mg/dl AST 20 (13-39) U/L ALT 16 (7-52) U/L Alkaline Phosphatase 110 H (34-104) U/L Albumin 3.1 L (3.4-5.0) gm/dl Medications Administered Current Inpatient Medications Acetaminophen (Acetaminophen 325 Mg Tab) 650 mg PO Q4H PRN PRN Reason: Pain or Fever Stop: 10/03/23 00:26 Last Admin: 09/04/23 20:23 Dose: 650 mg Atorvastatin Calcium (Atorvastatin 20 Mg Tab) 20 mg PO QPM [facility] Stop: 10/03/23 20:59 Last Admin: 09/04/23 20:24 Dose: 20 mg Dextrose (Dextrose 50% 50 Ml Syringe) 25 - 50 ml IV UD PRN; Protocol PRN Reason: Hypoglycemia Protocol Stop: 10/03/23 00:26 Ferrous Sulfate (Ferrous Sulfate 325 Mg Tab) 325 mg PO MoWeFr@0900 [facility] Stop: 10/04/23 08:59 Last Admin: 09/04/23 11:13 Dose: Not Given Fluticasone Propionate (Fluticasone Propionate Na Spr 16 Gm Btl) 1 sprays NA DAILY PRN PRN Reason: Allergy Symptoms Stop: 10/03/23 00:26 Furosemide (Furosemide 20 Mg Tab) 10 mg PO QAM [facility] Stop: 10/03/23 08:59 Last Admin: 09/03/23 10:13 Dose: 10 mg Gabapentin (Gabapentin 300 Mg Cap) 300 mg PO HS PRN PRN Reason: Pain Stop: 10/03/23 00:26 Last Admin: 09/04/23 20:25 Dose: 300 mg Glucagon (Glucagon For Inj 1 Mg Vial) 1 mg SQ UD PRN; Protocol PRN Reason: Hypoglycemia Protocol Stop: 10/03/23 00:26 Glucose (Glucose 10 Tab/Tube) 4 - 8 tab PO UD PRN; Protocol PRN Reason: Hypoglycemia Treatment Stop: 10/03/23 00:26 Glucose (Glucose 40% Gel 15 Gm Tube) 15 - 30 gm PO UD PRN; Protocol PRN Reason: Hypoglycemia Protocol Stop: 10/03/23 00:26 Hydroxyzine HCl (Hydroxyzine Hcl 10 Mg Tab) 10 mg PO Q12 PRN PRN Reason: Itching Stop: 10/03/23 00:26 Last Admin: 09/05/23 13:23 Dose: 10 mg Sodium Chloride (Nss) 1,000 mls @ 80 mls/hr IV .[id number] [facility] Stop: 09/05/23 23:59 Last Admin: 09/05/23 13:17 Dose: 80 mls/hr Insulin Aspart (Insulin Aspart Per Unit Charge) 0 units SC ACHS [facility] Stop: 10/04/23 16:29 Last Admin: 09/05/23 13:21 Dose: 6 units Insulin Glargine (Lantus Per Unit Charge) 20 units SQ DAILY [facility] Stop: 10/03/23 08:59 Last Admin: 09/05/23 09:58 Dose: 20 units Levothyroxine Sodium (Levothyroxine Sodium 100 Mcg Tablet) 100 mcg PO DAILYBB [facility] Stop: 10/03/23 06:29 Last Admin: 09/05/23 05:08 Dose: 100 mcg Lidocaine (Lidocaine 5% 1 Patch) 1 patch TD DAILY PRN PRN Reason: Pain Stop: 10/03/23 00:26 Melatonin (Melatonin 3 Mg Tab) 9 mg PO HS [facility] Stop: 10/03/23 20:59 Last Admin: 09/04/23 20:23 Dose: 9 mg Miscellaneous (Remove Lidoderm Patch) 1 each N/A DAILY@2100 [facility] Stop: 10/03/23 20:59 Last Admin: 09/04/23 20:25 Dose: Not Given Miscellaneous (Carbohydrates For Hypoglycemia ) 15 - 30 gm PO UD PRN PRN Reason: Hypoglycemia Protocol Stop: 10/03/23 00:26 Last Admin: 09/04/23 12:30 Dose: 15 gm Nitroglycerin (Nitroglycerin Sl 0.4 Mg/Tab Tab) 0.4 mg SL Q5M PRN PRN Reason: Chest Pain Stop: 10/03/23 00:26 Pantoprazole Sodium (Pantoprazole 40 Mg Tab) 40 mg PO BID [facility] Stop: 10/03/23 08:59 Last Admin: 09/05/23 08:32 Dose: 40 mg Trolamine Salicylate (Trolamine Salicylate 10% Crm 255 Appln/85 Gm Tube) 1 appln EXT DAILY PRN PRN Reason: Pain Stop: 10/03/23 00:26
[2023-09-05] MEDS: MELATONIN 3 MG TAB PO SCH (20:00)
[2023-09-05] MEDS: GABAPENTIN 300 MG CAP PO PRN (20:23)
[2023-09-05] MEDS: ATORVASTATIN 20 MG TAB PO SCH (20:24)
[2023-09-05] MEDS: ACETAMINOPHEN 325 MG TAB PO PRN (20:25)
[2023-09-06] MEDS: LEVOTHYROXINE SODIUM 100 MCG TABLET PO SCH (06:16)
[2023-09-06 06:44] LABS: Basophils # (auto) 0.01 K/uL (0.00-0.20); Basophils % (auto) 0.4 %; Eosinophils # (auto) 0.06 K/uL (0.00-0.50); Eosinophils % (auto) 2.5 %; Hematocrit (blood only) 30.7 % (37.0-47.0); Hemoglobin 9.2 g/dl (12.0-16.0); Immature Granulocytes # (auto) 0.01 K/uL (0.01-0.20); Immature Granulocytes % (auto) 0.4 %; Lymphocytes # (auto) 0.65 K/uL (1.20-3.40); Lymphocytes % (auto) 27.5 %; Mean Corpuscular Hemoglobin 24.4 pg (25.0-34.0); Mean Corpuscular Volume 81.4 fL (80.0-100.0); Mean Platelet Volume 11.2 fL (9.4-12.4); Monocytes # (auto) 0.23 K/uL (0.11-0.59); Monocytes % (auto) 9.7 %; Neutrophils % (auto) 59.5 %; Platelet Count 55 K/uL (130-400); RDW Coefficient of Variation 17.6 % (11.5-14.5); RDW Standard Deviation 52.4 fL (36.4-46.3); Red Blood Count 3.77 M/uL (4.20-5.40); White Blood Count 2.36 K/ul (4.8-10.8)
[2023-09-06 07:11] LABS: Albumin Globulin Ratio 1.3 (0.9-2); Albumin Level 3.2 gm/dl (3.4-5.0); BUN Creatinine Ratio 21.4 (10-20); Bilirubin,Total 0.7 mg/dl (0.2-1.0); Creatinine Clr Calc Pharmacy 32.5 ml/min; Est GFR (African American) 60.5 ml/min; Est GFR (Non-African American) 52.2 ml/min; Globulin 2.5 gm/dl (2.5-4.0); Magnesium 1.9 mg/dl (1.7-2.4); Phosphorus 2.8 mg/dl (2.5-4.9); Potassium 4.4 mmol/L (3.5-5.1); Total Protein 5.7 gm/dl (6.0-8.3)
[2023-09-06] MEDS: INSULIN ASPART PER UNIT CHARGE SC SCH ×2 (09:06→13:02)
[2023-09-06] MEDS: LANTUS PER UNIT CHARGE SQ SCH (09:06)
[2023-09-06] MEDS: FERROUS SULFATE 325 MG TAB PO SCH (09:07)
[2023-09-06] MEDS: PANTOprazole 40 MG TAB PO SCH (09:07)
--- NOTE | 2023-09-06 13:46 | Hospitalist Progress Note ---
Date of Service September 06, 2023 Assessment & Plan (1) Rectal bleed: Plan: per Dr. Licea's notes with addendum: 87-year-old female with past medical history significant for type 2 diabetes, hypothyroidism, hyperparathyroidism, COPD, history of pneumothorax on the right side, AAA, peripheral vascular disease, history of esophageal varices,'s CAD, hypertension, stenosis of left carotid artery, portal hypertensive gastropathy, liver cirrhosis secondary to [place], chronic kidney stage III, mixed stress and urge incontinence, inflammatory arthritis, osteoarthritis, peripheral neuropathy, history of thrombocytopenia, history of pancytopenia, ambulatory dysfunction admitted with recurrent rectal bleed. Rectal Bleed Episode, possibly from Hemorrhoids Noted bright red blood with BM yesterday Hemoglobin 9.3 on admission, currently 9.6 Last admission last month, pt's hemoglobin was 5.2, received 2 units of pRBCs and refused endoscopy/colonoscopy GI consult- pt currently agreeable to discussing having the procedure done if daughter Melany present. Melany was called and she was agreeable to coming in/being in contact with GI about this. Status post EGD-no active source of bleeding, grade 1 esophageal varices without any red casimiro sign or stigmata of bleeding. She will have colonoscopy as an outpatient and she did not have any bowel movement and no more blood per rectum Hg remained stable around 9.2 Plt 55k no recurrence of GI bleed discussed with Dr. Jiménez from GI, ok to resume ASA and Plavix patient needs outpatient Colonoscopy repeat CBC on ff up with PCP in 1 week DMII A1c 8.6 continue DM regimen History of peripheral vascular disease History of stents OK to resume ASA and Plavix per GI Continue statin Denies any symptoms Chronic diastolic CH euvolemic resume usual Lasix CKD stage III Presented with creatinine 1.2 crea stable Liver cirrhosis from [place] Pancytopenia Stable monitor CBC History of C diff had multiple BM after stool softener yesterday resolved today no abdominal pain, nausea/vomiting, fever/chills DVT prophylaxis: SCDs in setting of GI bleed Code Status: Full code if there is chance of recovery per admitting provider's discussion with the patient Disposition: d/c home plan of care discussed with patient in detail and at length all questions answered she is understanding, agreeable, comfortable with the plan of care Admission and Anticipated Discharge Date Admission Date: September 02, 2023 Subjective ff up for rectal bleed, etc seen resting in bed, comfortable in good spirits states she feels fine overall had 1 soft, non bloody BM this morning no abdominal pain, nausea appetite is good no chest pain, dyspnea, palpitations, dizziness no other new symptoms states she is ready today and would like to be discharged Review of Systems Review of Systems: all noted and negative except for above Physical Exam Physical Exam: General- oriented x 3, not in distress, speaks in sentences with no effort or accessory muscle use Eyes- anicteric Neck- no JVD Lungs- clear breath sounds bilaterally, no rales/wheezes Heart- normal rate, regular rhythm; no murmurs Abdomen- normal bowel sounds, nondistended, soft, nontender Extremities- no pretibial edema, no calf tenderness Neuro- alert, oriented x 3; no gross focal neurologic deficits Skin- warm & dry Results & Data Results & Data Vital Signs (Past 12 Hours) Vital Signs Temp Pulse Pulse Pulse Resp BP Pulse Ox 09/06/23 12:32 36.7 C 61 65 16 153/59 H 93 09/06/23 12:09 36.7 C 61 65 16 153/59 H 93 09/06/23 12:07 36.7 C 61 16 153/59 H 93 09/06/23 08:16 36.7 C 60 17 142/65 H 95 09/06/23 07:24 62 09/06/23 03:35 36.4 C L 61 18 143/62 H 92 O2 Del Method 09/06/23 12:32 09/06/23 12:09 09/06/23 12:07 Room Air 09/06/23 08:16 Room Air 09/06/23 07:24 09/06/23 03:35 Room Air all noted and reviewed including below
--- NOTE | 2023-09-06 13:51 | Discharge Summary ---
Discharge Summary Date of Service September 06, 2023 Notes For Next Care Provider Medication Changes From Visit None Admission HPI Per Admitting Provider 87-year-old female with past medical history significant for type 2 diabetes, hypothyroidism, hyperparathyroidism, COPD, history of pneumothorax on the right side, AAA, peripheral vascular disease, history of esophageal varices,'s CAD, hypertension, stenosis of left carotid artery, portal hypertensive gastropathy, liver cirrhosis secondary to [place], chronic kidney stage III, mixed stress and urge incontinence, inflammatory arthritis, osteoarthritis, peripheral neuropathy, history of thrombocytopenia, history of pancytopenia, ambulatory dysfunction, who lives alone at home but family is close by and ambulates with walker comes because of rectal bleed. Patient states she has 1 episode rectal bleed today and she was recently in the hospital with hemoglobin of 5.2 and received 2 units of PRBC and hemoglobin remained stable and she refused endoscopies. Patient denies any abdominal pain. Micturating okay. No nausea vomiting. No shortness of breath. She has some chest discomfort but attributes it to muscle pain and from sinus drainage. Has chronic sinus problem. No dysphagia. Appetite okay. No headache. Vision is okay. Somewhat hard of hearing. Currently resting comfortably and hemodynamically stable. Past medical history. As mentioned above Past surgical history. EGD. Repair left carotid aneurysm. Left femoral- popliteal bypass. Stents to left subclavian and superior mesenteric artery. Stents to celiac left iliac and subclavian artery. This right femoral endarterectomy. Appendectomy. Social history lives alone. No smoking. Alcohol rare. No drug use. Family history no family on file. Admission Exam Per Admitting Provider General- Not in distress. Head- atraumatic Eyes- PERRL. ENT- oropharynx clear Neck- supple, no JVD. Lungs- clear to auscultation no wheezing or crackles. Heart- regular rhythm; no murmur, no gallop. Abdomen- normal bowel sounds, soft, nontender, no distension. Extremities- mild pretibial edema, no erythema seen. Neuro- alert, oriented x 3; PERRL, no facial palsy; no dysarthria; moves extremities. Skin- warm & dry Principal Dx & Hospital Course #1 = Principal Diagnosis (1) Rectal bleed: per Dr. Licea's notes with addendum: 87-year-old female with past medical history significant for type 2 diabetes, hypothyroidism, hyperparathyroidism, COPD, history of pneumothorax on the right side, AAA, peripheral vascular disease, history of esophageal varices,'s CAD, hypertension, stenosis of left carotid artery, portal hypertensive gastropathy, liver cirrhosis secondary to [place], chronic kidney stage III, mixed stress and urge incontinence, inflammatory arthritis, osteoarthritis, peripheral n europathy, history of thrombocytopenia, history of pancytopenia, ambulatory dysfunction admitted with recurrent rectal bleed. Rectal Bleed Episode, possibly from Hemorrhoids Noted bright red blood with BM yesterday Hemoglobin 9.3 on admission, currently 9.6 Last admission last month, pt's hemoglobin was 5.2, received 2 units of pRBCs and refused endoscopy/colonoscopy GI consult- pt currently agreeable to discussing having the procedure done if daughter Melany present. Melany was called and she was agreeable to coming in/being in contact with GI about this. Status post EGD-no active source of bleeding, grade 1 esophageal varices without any red casimiro sign or stigmata of bleeding. She will have colonoscopy as an outpatient and she did not have any bowel movement and no more blood per rectum Hg remained stable around 9.2 Plt 55k no recurrence of GI bleed discussed with Dr. Meza from GI, ok to resume ASA and Plavix patient needs outpatient Colonoscopy repeat CBC on ff up with PCP in 1 week DMII A1c 8.6 continue DM regimen History of peripheral vascular disease History of stents OK to resume ASA and Plavix per GI Continue statin Denies any symptoms Chronic diastolic CH euvolemic resume usual Lasix CKD stage III Presented with creatinine 1.2 crea stable Liver cirrhosis from [place] Pancytopenia Stable monitor CBC History of C diff had multiple BM after stool softener yesterday resolved today no abdominal pain, nausea/vomiting, fever/chills DVT prophylaxis: SCDs in setting of GI bleed Code Status: Full code if there is chance of recovery per admitting provider's discussion with the patient Disposition: d/c home plan of care discussed with patient in detail and at length all questions answered she is understanding, agreeable, comfortable with the plan of care Discharge Exam General- oriented x 3, not in distress, speaks in sentences with no effort or accessory muscle use Eyes- anicteric Neck- no JVD Lungs- clear breath sounds bilaterally, no rales/wheezes Heart- normal rate, regular rhythm; no murmurs Abdomen- normal bowel sounds, nondistended, soft, nontender Extremities- no pretibial edema, no calf tenderness Neuro- alert, oriented x 3; no gross focal neurologic deficits Skin- warm & dry Updated Medication List Medication Instructions Recorded Confirmed Type aspirin 81 mg tablet,delayed 81 mg PO QAM 04/10/19 09/02/23 History release (Kendra Low Dose Aspirin) atorvastatin 20 mg tablet 20 mg PO QPM 04/10/19 09/02/23 History clopidogrel 75 mg tablet 75 mg PO QAM 04/10/19 09/02/23 History ferrous sulfate 325 mg (65 mg 325 mg PO 3XWK 01/01/22 09/02/23 History iron) tablet (FeroSul) gabapentin 300 mg capsule 300 mg PO HS PRN Pain 01/01/22 09/02/23 History insulin degludec 200 unit/mL (3 32 - 40 unit subcut QAM 01/01/22 09/03/23 History mL) subcutaneous pen (Tresiba FlexTouch U-200 insulin) empagliflozin 25 mg tablet 25 mg PO QAM 09/12/22 09/02/23 History (Jardiance) furosemide 40 mg tablet 20 mg PO QAM 09/12/22 09/03/23 History levothyroxine 100 mcg tablet 100 mcg PO QAM 09/12/22 09/02/23 History cranberry 500 mg capsule 500 mg PO HS 07/10/23 09/02/23 History fluticasone propionate 50 1 spray intranasal DAILY PRN 07/10/23 09/02/23 History mcg/actuation nasal Allergy Symptoms spray,suspension lidocaine 5 % topical patch 1 patch transdermal DIRECTED 07/10/23 09/02/23 History PRN Pain trolamine salicylate 10 % topical 1 applic topical DAILY PRN Pain 07/10/23 09/02/23 History cream (Aspercreme) hydroxyzine HCl 10 mg tablet 10 mg PO Q12 PRN Itching 09/02/23 09/02/23 History melatonin 5 mg chewable tablet 10 mg PO HS 09/02/23 09/02/23 History pantoprazole 40 mg tablet,delayed 40 mg PO AMHS 09/02/23 09/02/23 History release Hospital Stay Data Consultations 09/02/23 21:01 ED Decision to Admit Stat 09/03/23 10:32 Consult Gastroenterology Routine Procedures Performed Operation Date: 09/04/23 16:00 Actual Procedures p Esophagogastroduodenoscopy - Laura Meza, Findings: The Z-line was regular and was found 35 cm from the incisors. Grade I varices were found in the lower third of the esophagus. The exam of the esophagus was otherwise normal. Severe portal hypertensive gastropathy was found in the entire examined stomach. There is no endoscopic evidence of varices in the entire examined stomach. Friable mucosa without active bleeding was found in the duodenal bulb and in the second portion of the duodenum. Impression: - Z-line regular, 35 cm from the incisors. - 1 column of grade I esophageal varices without any red casimiro signs or stigmata of recent bleeding. - Portal hypertensive gastropathy. No gastric varices. - Friable duodenal mucosa. - No specimens collected. Recommendation: - Return patient to [facility] for ongoing care. - Resume previous diet. - Continue present medications. - Recommend outpatient colonoscopy since patient has had no further bleeding and reports last colonoscopy around 20 years ago. Recommend to complete after patient is able to hold plavix for 5 days. Her bleeding she had sounds hemmorhoidal as she reports it only occured twice with wiping and she had some anal itching. Laura Meza, 09/04/2023 9:47:25 AM Pending Results Patient Have Any Pending Studies at Discharge: Yes Discharge Instructions Given to Patient (Per Discharging Provider) YOU MAY RESUME YOUR USUAL ASPIRIN AND PLAVIX TOMORROW. PLEASE CALL YOUR PRIMARY CARE PHYSICIAN OR RETURN TO THE ER IF WITH WORSENING OF SYMPTOMS, INCLUDING BLOOD IN YOUR STOOLS, DIARRHEA, WEAKNESS, SHORTNESS OF BREATH, DIZZINESS, ETC FOLLOW UP WITH PRIMARY CARE PHYSICIAN OUTLINED ABOVE. FOLLOW UP WITH [employer] DR. LAURA MEZA IN 2 WEEKS TO BE SCHEDULED FOR A COLONOSCOPY. Total Time Total Time Spent Total Time Spent (In Minutes): >30 minutes
== END 2023-09-06 13:51 | disposition home or self-care (01) | DRG 393 ==
LOC: ED 18:19 → SUATTDRO 22:07 → EDINP 22:07 → 2N 09-03 00:28

== ENCOUNTER 2024-11-05 15:54 | Inpatient (IN) ==
[2024-11-05] MEDS ORDERED: SODIUM CHLORIDE 0.9% 50 ML IV PRN (16:40)
[2024-11-05] MEDS ORDERED: SODIUM CHLORIDE 0.9% 100 ML IV PRN (16:40)
--- NOTE | 2024-11-05 16:56 | XRay Report ---
EXAM: Radiograph of the Chest 1 View INDICATION: Weakness. TECHNIQUE: Frontal view of the chest. COMPARISON: 09/08/2023 FINDINGS: Lungs and pleural spaces: Stable interstitial scarring. No consolidation or pulmonary edema. No pleural effusion or pneumothorax. Heart: Shape and configuration within normal limits allowing for technique. Mediastinum: Normal contour. Bones/joints: Old bilateral rib fractures. Soft tissues: No abnormality noted. No radiopaque foreign body noted. Vasculature: Stable ectatic calcified aorta with left carotid stent. Upper abdomen: No abnormality noted. IMPRESSION: Chronic changes. No acute disease. ACT 112: Negative or not required by law. Electronically signed by Bibi Goss 11-05-2024 4:55 PM
[2024-11-05] MEDS: ONDANSETRON INJ 2 MG/ML 2 ML VIAL IV STA (17:19)
[2024-11-05] MEDS: MoRPHine SULFATE 2 MG/ML CARP IV STA (17:21)
[2024-11-05] MEDS: FAMOTIDINE 20MG IV PUSH 20 MG/5 ML SYR IV STA (17:23)
[2024-11-05] MEDS: PANTOprazole 80 MG in DEXTROSE 5% 100 ML IV ONE (17:24)
--- NOTE | 2024-11-05 17:27 | CT Scan Report ---
EXAM: CT Abdomen and Pelvis Without Intravenous Contrast INDICATION: Vomiting. Black tarry stools. TECHNIQUE: Axial computed tomography images of the abdomen and pelvis without intravenous contrast. Sagittal and coronal reformatted images were created and reviewed. This CT exam was performed using one or more of the following dose reduction techniques: automated exposure control, adjustment of the mA and/or kV according to patient size, and/or use of iterative reconstruction technique. COMPARISON: 03/27/2023 FINDINGS: Limitations: None. Lung bases: No abnormality noted. Pleural space: No visualized pleural effusion or pneumothorax. Heart: No abnormality noted. Mediastinum: No abnormality noted. ABDOMEN: Liver: Cirrhotic appearance of the liver is unchanged. No visible mass or ductal dilatation. Gallbladder and bile ducts: Multiple gallstones present. No ductal dilatation or stone. Pancreas: Atrophic pancreas. No inflammatory process or mass noted. Spleen: Stable enlarged spleen measuring 15 cm long. Adrenals: No significant abnormality noted. Kidneys and ureters: Simple left renal cyst/s. No simple cyst follow-up necessary. Right kidney appears normal. No renal stone, hydronephrosis or perinephric fluid. Right kidney appears normal. Stomach and bowel: There is mild prominent fluid layering throughout the intestinal tract without obstruction. There are multiple colonic diverticula. There is mild inflammation of the distal ascending colon and surrounding mesentery. PELVIS: Appendix: No findings to suggest acute appendicitis. Bladder: Appears normal for the degree of filling. No stones or inflammation. No large mass. Masses may not be detected in the absence of opacification. Reproductive: No abnormalities noted. ABDOMEN and PELVIS: Intraperitoneal space: Some free fluid noted. No abscess or free air. Bones/joints: Degenerative changes noted throughout the spine. No acute osseous abnormality seen. Moderate degenerative changes noted in both hips. Soft tissues: Umbilical hernia containing fat. Vasculature: Stable dense atherosclerotic calcification of the aorta and branches. Stable distal abdominal aortic aneurysm of 3.5 cm. No hemorrhage. Lymph nodes: No pathologically enlarged lymph nodes. IMPRESSION: 1. Mild acute ascending colonic diverticulitis without complication. 2. Cirrhosis and splenomegaly. Mild ascites. 3. Cholelithiasis. 4. Stable 3.5 cm distal abdominal aortic aneurysm without rupture. ACR White Paper guidelines (Shazia, et al. JACR 2013; 10(10):789-94) suggest abdomen/pelvis CT or MR imaging follow-up in 2 years. ACT 112: Negative or not required by law. Electronically signed by Bibi Goss 11-05-2024 5:27 PM
[2024-11-05 17:36] LABS: Basophils # (auto) 0.05 K/uL (0.00-0.20); Basophils % (auto) 0.4 %; Eosinophils # (auto) 0.01 K/uL (0.00-0.50); Eosinophils % (auto) 0.1 %; Hematocrit (blood only) 35.4 % (37.0-47.0); Hemoglobin 11.5 g/dl (12.0-16.0); Immature Granulocytes # (auto) 0.06 K/uL (0.01-0.20); Immature Granulocytes % (auto) 0.5 %; Lymphocytes # (auto) 0.85 K/uL (1.20-3.40); Lymphocytes % (auto) 7.2 %; Mean Corpuscular Hemoglobin 28.5 pg (25.0-34.0); Mean Corpuscular Hgb Conc 32.5 g/dL (32.0-36.0); Mean Corpuscular Volume 87.8 fL (80.0-100.0); Mean Platelet Volume 10.3 fL (9.4-12.4); Monocytes # (auto) 1.07 K/uL (0.11-0.59); Neutrophils # (auto) 9.82 K/uL (1.40-6.50); Neutrophils % (auto) 82.8 %; Platelet Count 146 K/uL (130-400); RDW Coefficient of Variation 15.6 % (11.5-14.5); RDW Standard Deviation 50.4 fL (36.4-46.3); Red Blood Count 4.03 M/uL (4.20-5.40); White Blood Count 11.86 K/ul (4.8-10.8)
[2024-11-05 17:37] LABS: Albumin Level 3.3 gm/dl (3.4-5.0); Bilirubin,Total 1.4 mg/dl (0.2-1.0); Calcium 9.2 mg/dl (8.6-10.3); Creatinine Clr Calc Pharmacy 25.4 ml/min; Globulin 3.4 gm/dl (2.5-4.0); Magnesium 1.9 mg/dl (1.7-2.4); Potassium 4.4 mmol/L (3.5-5.1); Total Protein 6.7 gm/dl (6.0-8.3)
[2024-11-05] MEDS: PANTOprazole 40 MG in DEXTROSE 5% MINI-B 100 ML IV SCH (17:40)
[2024-11-05 17:44] LABS: Troponin I High Sensitivity 20.2 pg/ml (0-14)
[2024-11-05 17:50] LABS: Thyroid Stimulating Hormone 0.442 uIu/ml (0.300-4.500)
--- NOTE | 2024-11-05 18:16 | Emergency Department Note ---
Impression & Plan Diverticulitis, Abdominal pain, lower, Acute GI bleeding ED Provider Note NAME: JIMENEZ SIMMONS AGE: 89 SEX: Female INFORMANT: Patient ED PROVIDER(S): Juan Chen MD CHIEF COMPLAINT: Illness and weakness PLAN: Disposition: Admitted Outpatient prescription management: none Referral: None MEDICAL DECISION MAKING: Patient presented and was noted to have abdominal pain on examination. She also had heme rectal examination. Patient was started on Pepcid and Protonix. CT scan was performed and was she was found to have diverticulitis. Cipro and Flagyl was ordered. The patient was treated with morphine and Zofran. On reassessment she was doing well. She will need further management in the hospital. She has a mild anemia but this is improved from prior. On reassessment the patient was feeling improved. Further management in the hospital be necessary. Consultation was made with the [facility].. Patient was evaluated in the emergency room and admitted for further management. Care/management discussed with: assistant quality manager Level of care consideration(s): After review of the information above and other included data, I feel the patient requires escalation of care to admission Triage Nursing notes: reviewed and agree them. Vital Signs: reviewed and remarkable for no significant abnormalities Additional History obtained from: none Chronic Medical/Social Conditions affecting care: Diabetes Prior/ Outside/ External records reviewed: none Differential Diagnosis: Appendicitis, infections, diverticulitis, UTI, obstruction, mesenteric ischemia, aortic pathology, inflammatory bowel disease, renal colic, PUD, pancreatitis, biliary pathology, hernia, volvulus, constipation, as well as other pathologies. Diagnostics, independently interpreted by me: ECG: Twelve-lead ECG reveals normal sinus rhythm at 78 beats per minute. No evidence of pericarditis, ischemia, ectopy, or dysrhythmia. Cardiac Monitoring: Cardiac monitoring ordered by me: The patient was placed on continuous cardiac monitoring and observed. It revealed a normal sinus rhythm at 80 beats per minute without ectopy or evidence of dysrhythmia. Medical decision rules: none Imaging studies: CT scan identified this is concerning for diverticulitis. HPI: 89 year old Female arrives for evaluation of illness and weakness. This started over the last 2 weeks and is worsening. Patient also notes this week developing lower abdominal pain. She did have some vomiting yesterday. The patient also notes the following associated symptoms, black tarry stools since today. The patient has taken no medication for relieving factors. Current pain is rated as 4/10. Patient is on a baby aspirin and is diabetic. Pt denies LOC, headache, fevers, chills, diaphoresis, visual changes, neck pain, chest pain, breathing difficulties, back pain, hematochezia, urinary symptoms, numbness, or other complaints. PAST MEDICAL HISTORY: See Below, diabetes PAST SURGICAL HISTORY: See Below, SOCIAL HISTORY: See Below, retired HOME MEDICATIONS: See Below ALLERGIES: See Below VITALS: See Below PHYSICAL EXAMINATION: GENERAL: Awake, alert, uncomfortable-appearing, in no distress HENT: Normocephalic, atraumatic. Oropharynx unremarkable. EYES: Normal conjunctiva. Sclera non-icteric. NECK: Inspection normal. Non-tender. Supple. No nuchal rigidity. FROM. No masses. RESPIRATORY: Clear to auscultation. No wheezes. No rales. Normal respiratory effort. CARDIAC: Normal rate. Normal rhythm. No murmurs. No rubs. Extremities warm and well perfused. Pulses equal. No JVD. GI: Soft, non-distended. Left lower tenderness to palpation. No rebound or guarding. No masses. RECTAL: Dark stool Hemoccult positive. Mild hemorrhoids present. MUSCULOSKELETAL: Atraumatic. Chest examination reveals no tenderness. The back is symmetrical on inspection without obvious abnormality. There is no CVA tenderness to palpation. No joint edema. LOWER EXTREMITIES: Calves are equal size bilaterally and non-tender. No edema. No discoloration. NEURO: Normal sensorium. No sensory or motor deficits noted. SKIN: No rash or jaundice noted. 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 ear Ear drum perforation History of Clostridioides difficile colitis Antiplatelet or antithrombotic long-term use (Acute) Rectal bleed (Acute) Shortness of breath (Acute) Acute exacerbation of CHF (congestive heart failure) (Acute) Non-ST elevation [place] (NSTEMI) (Acute) Anemia requiring transfusions (Acute) Pulmonary edema (Acute) Compression fracture of body of thoracic vertebra Hypothyroid Type 2 diabetes mellitus Fall (Acute) Cholelithiasis (Acute) Cirrhosis (Chronic) Thrombocytopenia (Chronic) Abdominal pain, RUQ (Acute) Epigastric abdominal pain (Acute) Back pain (Acute) Encounter for pre-operative examination COPD (chronic obstructive pulmonary disease) Pneumonia (Acute) Aneurysm of infrarenal abdominal aorta GI bleed Total bilirubin, elevated Cholelithiasis Thickened endometrium Anemia (Acute) Emphysema History of intravascular stent placement Reported Left subclavian, superior mesenteric artery, L iliac, L fempop bypass - [facility] And[facility] History of appendectomy Medical History History of Graves' disease History of acute renal failure Disorder of acid-base balance CKD (chronic kidney disease) stage 3, GFR 30-59 ml/min DVT prophylaxis EARL (acute kidney injury) Metabolic acidosis Hypoglycemic episode in patient with diabetes mellitus Pneumonia Sinus bradycardia Hypertension PAF (paroxysmal atrial fibrillation) Atrial fibrillation with rapid ventricular response Cirrhosis Sepsis Acute metabolic encephalopathy Hypothyroidism PAD (peripheral artery disease) DM II (diabetes mellitus, type II), controlled Cholelithiasis Pancytopenia Cirrhosis Aneurysm of infrarenal abdominal aorta GERD (gastroesophageal reflux disease) Graves disease Chest pain CKD (chronic kidney disease), stage III COPD (chronic obstructive pulmonary disease) PAD (peripheral artery disease) HLD (hyperlipidemia) Diabetes mellitus, type II Anemia HTN (hypertension) Family History Other Diabetes Hypertension Social History Smoking Status: Former smoker Hx Alcohol Use: Yes Alcohol Intake Frequency: Monthly or Less Alcohol Intake Frequency Comment: Holidays Hx Substance Use: No Preferred Language: [place] Communication Ability: Effective Lpn Home Health Required: No Beliefs That Will Affect Care: None marital status: Current Living Situation: Family Current Living Situation Comment: unable to determine How many Children do You have: 3 Feels Safe at Home: Yes Assistive Devices: Cane, Nebulizer and Walker Allergies Allergies Allergy/AdvReac Type Severity Reaction Status Date / Time vitamin E (d-alpha Allergy Intermediate ITCHY Verified 08/21/24 11:20 tocopherol) RASH, HIVES--PER [facility] 09/21/21 ENCOUNTER amoxicillin AdvReac Intermediate STOMACH Verified 08/21/24 11:20 UPSET--PER [facility] 09/21/21 ENCOUNTER baclofen AdvReac Intermediate Falls Verified 08/21/24 11:20 clavulanic acid AdvReac Intermediate STOMACH Verified 08/21/24 11:20 UPSET--PER [facility] 09/21/21 ENCOUNTER dulaglutide [From [facility]] AdvReac Intermediate Vomiting Verified 08/21/24 11:20 ropinirole AdvReac Intermediate Falls Verified 08/21/24 11:20 tramadol AdvReac Intermediate Falls Verified 08/21/24 11:20 Home Meds Home Medications Medication Instructions Recorded Confirmed aspirin 81 mg tablet,delayed 81 mg PO QAM 04/10/19 11/05/24 release (Kendra Low Dose Aspirin) atorvastatin 20 mg tablet 20 mg PO QPM 04/10/19 11/05/24 clopidogrel 75 mg tablet 75 mg PO QAM 04/10/19 11/05/24 ferrous sulfate 325 mg (65 mg 325 mg PO [id number] 01/01/22 11/05/24 iron) tablet (FeroSul) gabapentin 300 mg capsule 300 mg PO HS PRN Pain 01/01/22 11/05/24 insulin degludec 200 unit/mL (3 42 unit subcut QAM 01/01/22 11/05/24 mL) subcutaneous pen (Tresiba FlexTouch U-200 insulin) empagliflozin 25 mg tablet 25 mg PO QAM 09/12/22 11/05/24 (Jardiance) furosemide 40 mg tablet 20 mg PO QAM 09/12/22 11/05/24 levothyroxine 100 mcg tablet 100 mcg PO QAM 09/12/22 11/05/24 cranberry 500 mg capsule 500 mg PO HS 07/10/23 11/05/24 fluticasone propionate 50 1 spray intranasal DAILY PRN 07/10/23 11/05/24 mcg/actuation nasal Allergy Symptoms spray,suspension lidocaine 5 % topical patch 1 patch transdermal DIRECTED 07/10/23 11/05/24 PRN Pain trolamine salicylate 10 % topical 1 applic topical DAILY PRN Pain 07/10/23 11/05/24 cream (Aspercreme) hydroxyzine HCl 10 mg tablet 10 mg PO Q12 PRN Itching 09/02/23 11/05/24 melatonin 5 mg chewable tablet 10 mg PO HS 09/02/23 11/05/24 famotidine 40 mg tablet 40 mg PO DAILY 12/18/23 11/05/24 Novolog FlexPen U-100 Insulin 6 - 8 unit subcut TID 11/05/24 11/05/24 Results & Data (ED) Vital Signs Vital Signs - 24 hr 11/05/24 16:21 11/05/24 16:21 11/05/24 17:03 Temperature 36.8 C Temperature Source Oral Pulse Rate 80 80 Pulse Rate from SpO2 Sensor Respiratory Rate 14 Blood Pressure 152/74 H Blood Pressure Mean 100 Pulse Oximetry 96 Oxygen Delivery Method Room Air Room Air Sepsis Recent Fever Within 48 Hours No Sepsis New/Unexplained Change in Mental Status No Sepsis Action Taken by Nursing No Action Required 11/05/24 17:24 11/05/24 18:03 11/05/24 19:06 Temperature Temperature Source Pulse Rate 74 72 69 Pulse Rate from SpO2 Sensor 74 73 70 Respiratory Rate 15 21 15 Blood Pressure 164/56 H 165/74 H 155/59 H Blood Pressure Mean 92 104 91 Pulse Oximetry 89 L 100 100 Oxygen Delivery Method Sepsis Recent Fever Within 48 Hours Sepsis New/Unexplained Change in Mental Status Sepsis Action Taken by Nursing Laboratory Data 11/05/24 16:58 11/05/24 16:58 Lab Results 11/05/24 11/05/24 Range/Units 16:58 19:25 WBC 11.86 H (4.8-10.8) K/ul RBC 4.03 L (4.20-5.40) M/uL Hgb 11.5 L (12.0-16.0) g/dl Hct 35.4 L (37.0-47.0) % MCV 87.8 (80.0-100.0) fL MCH 28.5 (25.0-34.0) pg MCHC 32.5 (32.0-36.0) g/dL RDW Std Deviation 50.4 H (36.4-46.3) fL RDW Coeff of Daniela 15.6 H (11.5-14.5) % Plt Count 146 (130-400) K/uL MPV 10.3 (9.4-12.4) fL Immature Gran % (Auto) 0.5 % Neut % (Auto) 82.8 % Lymph % (Auto) 7.2 % Ray % (Auto) 9.0 % Eos % (Auto) 0.1 % Baso % (Auto) 0.4 % Neut # (Auto) 9.82 H (1.40-6.50) K/uL Lymph # (Auto) 0.85 L (1.20-3.40) K/uL Ray # (Auto) 1.07 H (0.11-0.59) K/uL Eos # (Auto) 0.01 (0.00-0.50) K/uL Baso # (Auto) 0.05 (0.00-0.20) K/uL Immature Gran # (Auto) 0.06 (0.01-0.20) K/uL Sodium 135 L (136-145) mmol/L Potassium 4.4 (3.5-5.1) mmol/L Chloride 103 (98-107) mmol/L Carbon Dioxide 21 (21-32) mmol/L Anion Gap 11 (3-11) BUN 36 H (6-23) mg/dl Creatinine 1.24 H (0.6-1.2) mg/dl Est Cr Clr Drug Dosing 25.4 ml/min eGFR 41.86 BUN/Creatinine Ratio 29.0 H (10-20) Glucose 111 H (70-99(Fasting)) mg/dl Calcium 9.2 (8.6-10.3) mg/dl Magnesium 1.9 (1.7-2.4) mg/dl Total Bilirubin 1.4 H (0.2-1.0) mg/dl AST 27 (13-39) U/L ALT 16 (7-52) U/L Alkaline Phosphatase 116 H (34-104) U/L Troponin I High Sens 20.2 H 19.5 H (0-14) pg/ml Total Protein 6.7 (6.0-8.3) gm/dl Albumin 3.3 L (3.4-5.0) gm/dl Globulin 3.4 (2.5-4.0) gm/dl Albumin/Globulin Ratio 1.0 (0.9-2) TSH 0.442 (0.300-4.500) uIu/ml Blood Type B Positive Antibody Screen NEGATIVE Crossmatch See Detail Administered Medications Pantoprazole Sodium 40 mg/ (Dextrose) 100 mls @ 20 mls/hr IV Q5H AAKASH Stop: 12/05/24 16:59 Last Admin: 11/05/24 17:40 Dose: 8 mg/hr, 20 mls/hr Documented By: ARLEEN Octreotide Acetate 500 mcg/ (Sodium Chloride) 100.5 mls @ 10.05 mls/hr IV .Q10H AAKASH Stop: 12/05/24 19:44 Last Admin: 11/05/24 20:23 Dose: 50 mcg/hr, 10.1 mls/hr Documented By: SANDIP Sodium Chloride (Nss) 1,000 mls @ 80 mls/hr IV .[id number] AAKASH Stop: 11/06/24 08:39 Last Admin: 11/05/24 21:42 Dose: 80 mls/hr Documented By: SANDIP Lactobacillus Acidophilus (Advanced Probiotic 625 Mg Capsule) 1,250 mg PO DAILY AAKASH Stop: 12/05/24 20:44 Last Admin: 11/05/24 21:43 Dose: 1,250 mg Documented By: SANDIP Discontinued Medications Famotidine (Pepcid 20mg Iv Push) 20 mg in 5 mls @ 2.5 mls/min IV NOW STA Stop: 11/05/24 16:41 Last Admin: 11/05/24 17:23 Dose: 2.5 mls/min Documented By: SANDIP Pantoprazole Sodium 80 mg/ (Dextrose) 120 mls @ 480 mls/hr IV NOW ONE Stop: 11/05/24 16:54 Last Infusion: 11/05/24 17:39 Dose: Infused Documented By: Admin: 11/05/24 17:24 Dose: 480 mls/hr Documented By: SANDIP Ciprofloxacin (Cipro / D5w) 400 mg in 200 mls @ 100 mls/hr IV NOW STA; Protocol Stop: 11/05/24 19:40 Last Admin: 11/05/24 20:22 Dose: Not Given Documented By: SANDIP Metronidazole (Flagyl) 500 mg in 100 mls @ 100 mls/hr IV NOW STA; Protocol Stop: 11/05/24 18:40 Last Infusion: 11/05/24 20:14 Dose: Infused Documented By: Admin: 11/05/24 19:07 Dose: 100 mls/hr Documented By: STACIAK Piperacillin Sod/Tazobactam Sod (Zosyn) 4.5 gm in 100 mls @ 200 mls/hr IV NOW STA; Protocol Stop: 11/05/24 21:04 Last Admin: 11/05/24 21:47 Dose: 200 mls/hr Documented By: STACIAK Morphine Sulfate (Morphine Sulfate 2 Mg/Ml Carp) 2 mg IV NOW STA Stop: 11/05/24 16:41 Last Admin: 11/05/24 17:21 Dose: 2 mg Documented By: BMK Ondansetron HCl (Ondansetron Inj 2 Mg/Ml 2 Ml Vial) 4 mg IV NOW STA Stop: 11/05/24 16:41 Last Admin: 11/05/24 17:19 Dose: 4 mg Documented By: STACIAK Pantoprazole Sodium (Pantoprazole Bolus/Drip) 1 each IV NOW STA Stop: 11/05/24 16:41 Last Admin: 11/05/24 21:41 Dose: Not Given Documented By: STACIAK Imaging Data Radiologist's Impression: Chest X-Ray 11/05/24 16:25 EXAM: Radiograph of the Chest 1 View INDICATION: Weakness. TECHNIQUE: Frontal view of the chest. COMPARISON: 09/08/2023 FINDINGS: Lungs and pleural spaces: Stable interstitial scarring. No consolidation or pulmonary edema. No pleural effusion or pneumothorax. Heart: Shape and configuration within normal limits allowing for technique. Mediastinum: Normal contour. Bones/joints: Old bilateral rib fractures. Soft tissues: No abnormality noted. No radiopaque foreign body noted. Vasculature: Stable ectatic calcified aorta with left carotid stent. Upper abdomen: No abnormality noted. IMPRESSION: Chronic changes. No acute disease. ACT 112: Negative or not required by law. Electronically signed by Bibi Goss 11-05-2024 4:55 PM Abdomen/Pelvis CT 11/05/24 16:40 EXAM: CT Abdomen and Pelvis Without Intravenous Contrast INDICATION: Vomiting. Black tarry stools. TECHNIQUE: Axial computed tomography images of the abdomen and pelvis without intravenous contrast. Sagittal and coronal reformatted images were created and reviewed. This CT exam was performed using one or more of the following dose reduction techniques: automated exposure control, adjustment of the mA and/or kV according to patient size, and/or use of iterative reconstruction technique. COMPARISON: 03/27/2023 FINDINGS: Limitations: None. Lung bases: No abnormality noted. Pleural space: No visualized pleural effusion or pneumothorax. Heart: No abnormality noted. Mediastinum: No abnormality noted. ABDOMEN: Liver: Cirrhotic appearance of the liver is unchanged. No visible mass or ductal dilatation. Gallbladder and bile ducts: Multiple gallstones present. No ductal dilatation or stone. Pancreas: Atrophic pancreas. No inflammatory process or mass noted. Spleen: Stable enlarged spleen measuring 15 cm long. Adrenals: No significant abnormality noted. Kidneys and ureters: Simple left renal cyst/s. No simple cyst follow-up necessary. Right kidney appears normal. No renal stone, hydronephrosis or perinephric fluid. Right kidney appears normal. Stomach and bowel: There is mild prominent fluid layering throughout the intestinal tract without obstruction. There are multiple colonic diverticula. There is mild inflammation of the distal ascending colon and surrounding mesentery. PELVIS: Appendix: No findings to suggest acute appendicitis. Bladder: Appears normal for the degree of filling. No stones or inflammation. No large mass. Masses may not be detected in the absence of opacification. Reproductive: No abnormalities noted. ABDOMEN and PELVIS: Intraperitoneal space: Some free fluid noted. No abscess or free air. Bones/joints: Degenerative changes noted throughout the spine. No acute osseous abnormality seen. Moderate degenerative changes noted in both hips. Soft tissues: Umbilical hernia containing fat. Vasculature: Stable dense atherosclerotic calcification of the aorta and branches. Stable distal abdominal aortic aneurysm of 3.5 cm. No hemorrhage. Lymph nodes: No pathologically enlarged lymph nodes. IMPRESSION: 1. Mild acute ascending colonic diverticulitis without complication. 2. Cirrhosis and splenomegaly. Mild ascites. 3. Cholelithiasis. 4. Stable 3.5 cm distal abdominal aortic aneurysm without rupture. ACR White Paper guidelines (Shazia, et al. JACR 2013; 10(10):789-94) suggest abdomen/pelvis CT or MR imaging follow-up in 2 years. ACT 112: Negative or not required by law. Electronically signed by Bibi Goss 11-05-2024 5:27 PM Discharge Plan Visit Data Chief Complaint: Weakness Stated Complaint: WEKNESS ED Provider: Juan Chen Discharge Problem: Diverticulitis, Abdominal pain, lower, Acute GI bleeding Discharge Instructions Interventions: ED Discharge Assessment Last Done: 11/05/24 20:11
[2024-11-05] MEDS: metroNIDAZOLE 500 MG/100 ML BAG IV STA (19:07)
--- NOTE | 2024-11-05 19:17 | History & Physical Report ---
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 Acute GI Bleeding: Patient with melena since last . FOBT positive in the ED. Hgb stable on admission at 11.5; IV Protonix bolus and drip initiated in the ED - will continue. 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 Suspect possible upper GI bleed in this case given her melena. Will start her on IV octreotide drip as a precaution due to risk of possible variceal bleeding. Continue to trend H/H every 6 hours. GI consult pending. Will likely need scoped however patient is adamant against doing so. NPO for now. Continue gentle IVF. Type/cross ordered by ED provider however no need for transfusion at this time. Hold anticoagulation at this time including her home aspirin and Plavix. Home famotidine on hold while she is receiving an IV PPI. Acute Diverticulitis of Ascending Colon: Patient with generalized weakness, nausea/vomiting and lower abdominal pain since last . CTAP findings consistent with mild acute ascending colonic diverticulitis. Also noted mild leukocytosis on admitting labs. S/p IV ciprofloxacin and IV Flagyl in the ED. Will continue antibiotic coverage with IV Zosyn for now. Probiotic added on. Gentle IVF as per above. Mildly Elevated Troponin: Initial troponin 20.2, repeat troponin 19.5; presenting EKG without any evidence of acute ST changes. Patient without any chest pain at this time. Likely demand ischemia in setting of acute GI bleed. Will continue to trend troponin Q6H for now. EKG daily x 2. EKG with chest pain PRN. Will obtain resting echocardiogram as a precaution given her extensive cardiac history. Portal Hypertensive Gastropathy Liver Cirrhosis 2/2 DE LA FUENTE with Esophageal Varices: Most recent endoscopy from 09/04/2023 revealed grade 1 varices in the lower third of the esophagus and severe portal hypertensive gastropathy in the entire examined stomach. LFTs appear to be stable. Will continue to monitor liver function. Patient at significant risk for esophageal variceal bleeding as per above. She follows with ADAM Walton [GI] at [facility]. H/O Pancytopenia Iron Deficiency Anemia: Patient follows with ADAM Pastrana [Heme/Onc] at [facility]. Pancytopenia likely related to her liver cirrhosis and splenomegaly. Patient has previously had to receive IV Venofer injections back in January of this year. Currently on oral iron supplementation - which will hold for now. Patient's baseline hemoglobin has been trending around 8-11 this year per chart review. Will continue to monitor her hemoglobin closely in the setting of her acute GI bleed. Most recent iron studies from 10/04/2024 --> Iron 336, TIBC 336, TSat 100 and Ferritin 85. Other Chronic Medical Conditions: * HLD/CAD - Continue atorvastatin. Hypothyroidism - Continue levothyroxine. HTN - Hold home Lasix in the setting of relative hypotension/dehydration. * DM Type II - Hold home agents. Basal/bolus regimen while inpatient. BSG checks ACHS. Hgb A1c was 9.1% on 09/25/2024. Glycemic pharmacy consulted. DVT Prophylaxis: SCDs/TEDs in the setting of an acute GI bleed as per above. Code Status: FULL CODE - Per direct conversation with the patient at bedside in the ED. PCP: Lizzie Vaca MD Disposition: Admit to PCU/Telemetry for further inpatient evaluation. PT/OT consults pending to further evaluate the patient's overall mobility status. Patient seen in collaboration with Dr. Hamilton. Please see addendum. I spent a total of 65 minutes coordinating, documenting, and providing care for this patient excluding time spent in the performance of separately billed services. This included personally reviewing all current laboratories and imaging studies, medical reconciliation, outpatient chart review and discussion with specialists. This chart was completed in part utilizing Speech Voice Recognition Software. Grammatical errors, random word insertions, pronoun errors, and incomplete sentences are an occasional consequence of this system due to software limitations, ambient noise, and hardware issues. Any formal questions or concerns about the content, text, or information contained within the body of this dictation should be directly addressed to the provider for clarification. History of Present Illness Chief Complaint: Generalized Weakness, N/V & Dark Stools Primary Care Provider: Lizzie Vaca MD Sharifa Jenkins is an 89-year-old female with past medical history significant for insulin-requiring DM type II, hypothyroidism, hyperparathyroidism, CKD stage III, COPD, abdominal aortic aneurysm, peripheral vascular disease s/p multiple stents + right FEA, CAD, HTN, severe left carotid artery stenosis, portal hypertensive gastropathy, liver cirrhosis secondary to DE [place] FUENTE with esophageal varices, mixed stress and urge urinary incontinence, inflammatory arthritis, peripheral polyneuropathy, pancytopenia, mild mitral regurgitation, iron deficiency anemia and osteoporosis who presented to the ED on 11/05/2024 for evaluation of generalized weakness, N/V and dark stools. History obtained from the patient, patient's son at bedside and associated chart review. Patient seen at bedside with Dr. Hamilton in the ED. Patient has been experiencing dark, runny stools since last . She has also been experiencing some lower abdominal pain since then as well. She reports that the pain is typically dull and achy in nature however it does become sharp at times. She notes tenderness to palpation in both of her lower abdominal quadrants. She had an episode of nausea and vomiting yesterday. Denies any blood in her vomit. Patient has had poor oral intake since last due to her abdominal pain. She has been feeling progressively weaker and more lethargic since this all began. No reported fevers but she does endorse some chills. She denies any shortness of breath or chest pain. She has been experiencing some nausea today but has had no further episodes of diarrhea. Allergies Allergy/AdvReac Type Severity Reaction Status Date / Time vitamin E (d-alpha Allergy Intermediate ITCHY Verified 08/21/24 11:20 tocopherol) RASH, HIVES--PER [facility] 09/21/21 ENCOUNTER amoxicillin AdvReac Intermediate STOMACH Verified 08/21/24 11:20 UPSET--PER [facility] 09/21/21 ENCOUNTER baclofen AdvReac Intermediate Falls Verified 08/21/24 11:20 clavulanic acid AdvReac Intermediate STOMACH Verified 08/21/24 11:20 UPSET--PER [facility] 09/21/21 ENCOUNTER [facility]ag[facility] AdvReac Intermediate Vomiting Verified 08/21/24 11:20 ropinirole AdvReac Intermediate Falls Verified 08/21/24 11:20 tramadol AdvReac Intermediate Falls Verified 08/21/24 11:20 Home Medications Medication Instructions Recorded Confirmed Type aspirin 81 mg tablet,delayed 81 mg PO QAM 04/10/19 11/05/24 History release (Kendra Low Dose Aspirin) atorvastatin 20 mg tablet 20 mg PO QPM 04/10/19 11/05/24 History clopidogrel 75 mg tablet 75 mg PO QAM 04/10/19 11/05/24 History ferrous sulfate 325 mg (65 mg 325 mg PO 3XWK 01/01/22 11/05/24 History iron) tablet (FeroSul) gabapentin 300 mg capsule 300 mg PO HS PRN Pain 01/01/22 11/05/24 History insulin degludec 200 unit/mL (3 42 unit subcut QAM 01/01/22 11/05/24 History mL) subcutaneous pen (Tresiba FlexTouch U-200 insulin) empagliflozin 25 mg tablet 25 mg PO QAM 09/12/22 11/05/24 History (Jardiance) furosemide 40 mg tablet 20 mg PO QAM 09/12/22 11/05/24 History levothyroxine 100 mcg tablet 100 mcg PO QAM 09/12/22 11/05/24 History cranberry 500 mg capsule 500 mg PO HS 07/10/23 11/05/24 History fluticasone propionate 50 1 spray intranasal DAILY PRN 07/10/23 11/05/24 History mcg/actuation nasal Allergy Symptoms spray,suspension lidocaine 5 % topical patch 1 patch transdermal DIRECTED 07/10/23 11/05/24 History PRN Pain trolamine salicylate 10 % topical 1 applic topical DAILY PRN Pain 07/10/23 11/05/24 History cream (Aspercreme) hydroxyzine HCl 10 mg tablet 10 mg PO Q12 PRN Itching 09/02/23 11/05/24 History melatonin 5 mg chewable tablet 10 mg PO HS 09/02/23 11/05/24 History famotidine 40 mg tablet 40 mg PO DAILY 12/18/23 11/05/24 History Novolog FlexPen U-100 Insulin 6 - 8 unit subcut TID 11/05/24 11/05/24 History Past Med/Surg History Problem List Diverticulitis of ascending colon Acute GI bleeding (Acute) Abdominal pain, lower (Acute) Diverticulitis (Acute) Sensorineural hearing loss (SNHL) of left ear with restricted hearing of right ear 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 with restricted hearing of left ear Ear drum perforation History of Clostridioides difficile colitis Antiplatelet or antithrombotic long-term use (Acute) Rectal bleed (Acute) Shortness of breath (Acute) Acute exacerbation of CHF (congestive heart failure) (Acute) Non-ST elevation VA (NSTEMI) (Acute) Anemia requiring transfusions (Acute) Pulmonary edema (Acute) Compression fracture of body of thoracic vertebra Hypothyroid Type 2 diabetes mellitus Fall (Acute) Cholelithiasis (Acute) Cirrhosis (Chronic) Thrombocytopenia (Chronic) Abdominal pain, RUQ (Acute) Epigastric abdominal pain (Acute) Back pain (Acute) Encounter for pre-operative examination COPD (chronic obstructive pulmonary disease) Pneumonia (Acute) Aneurysm of infrarenal abdominal aorta GI bleed Total bilirubin, elevated Cholelithiasis Thickened endometrium Anemia (Acute) Emphysema History of intravascular stent placement Reported Left subclavian, superior mesenteric artery, L iliac, L fempop bypass - [facility] History of appendectomy Medical History History of Graves' disease History of acute renal failure Disorder of acid-base balance CKD (chronic kidney disease) stage 3, GFR 30-59 ml/min DVT prophylaxis EARL (acute kidney injury) Metabolic acidosis Hypoglycemic episode in patient with diabetes mellitus Pneumonia Sinus bradycardia Hypertension PAF (paroxysmal atrial fibrillation) Atrial fibrillation with rapid ventricular response Cirrhosis Sepsis Acute metabolic encephalopathy Hypothyroidism PAD (peripheral artery disease) DM II (diabetes mellitus, type II), controlled Cholelithiasis Pancytopenia Cirrhosis Aneurysm of infrarenal abdominal aorta GERD (gastroesophageal reflux disease) Graves disease Chest pain CKD (chronic kidney disease), stage III COPD (chronic obstructive pulmonary disease) PAD (peripheral artery disease) HLD (hyperlipidemia) Diabetes mellitus, type II Anemia HTN (hypertension) Family History Other Diabetes Hypertension Social History Smoking Status: Former smoker Hx Alcohol Use: Yes Alcohol Intake Frequency: Monthly or Less Alcohol Intake Frequency Comment: Holidays Hx Substance Use: No Preferred Language: Burmese Communication Ability: Effective 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 Physical Exam Physical Exam: Please refer to Dr. Hamilton's addendum for physical examination findings. Results & Data Results & Data Vital Signs (Past 12 Hours) Vital Signs Temp Pulse Resp BP Pulse Ox O2 Del Method 11/05/24 18:03 72 21 165/74 H 100 11/05/24 17:24 74 15 164/56 H 89 L 11/05/24 17:03 80 11/05/24 16:21 Room Air 11/05/24 16:21 36.8 C 80 14 152/74 H 96 Room Air Laboratory Results Short CBC 11/05/24 Range/Units 16:58 WBC 11.86 H (4.8-10.8) K/ul Hgb 11.5 L (12.0-16.0) g/dl Hct 35.4 L (37.0-47.0) % Plt Count 146 (130-400) K/uL BMP 11/05/24 16:58 Sodium 135 L Potassium 4.4 Chloride 103 Carbon Dioxide 21 BUN 36 H Creatinine 1.24 H Glucose 111 H Calcium 9.2 Liver Function 11/05/24 Range/Units 16:58 Total Bilirubin 1.4 H (0.2-1.0) mg/dl AST 27 (13-39) U/L ALT 16 (7-52) U/L Alkaline Phosphatase 116 H (34-104) U/L Albumin 3.3 L (3.4-5.0) gm/dl Diagnostic Findings Chest X-Ray 11/05/24 16:25 EXAM: Radiograph of the Chest 1 View INDICATION: Weakness. TECHNIQUE: Frontal view of the chest. COMPARISON: 09/08/2023 FINDINGS: Lungs and pleural spaces: Stable interstitial scarring. No consolidation or pulmonary edema. No pleural effusion or pneumothorax. Heart: Shape and configuration within normal limits allowing for technique. Mediastinum: Normal contour. Bones/joints: Old bilateral rib fractures. Soft tissues: No abnormality noted. No radiopaque foreign body noted. Vasculature: Stable ectatic calcified aorta with left carotid stent. Upper abdomen: No abnormality noted. IMPRESSION: Chronic changes. No acute disease. ACT 112: Negative or not required by law. Electronically signed by Bibi Goss 11-05-2024 4:55 PM Abdomen/Pelvis CT 11/05/24 16:40 EXAM: CT Abdomen and Pelvis Without Intravenous Contrast INDICATION: Vomiting. Black tarry stools. TECHNIQUE: Axial computed tomography images of the abdomen and pelvis without intravenous contrast. Sagittal and coronal reformatted images were created and reviewed. This CT exam was performed using one or more of the following dose reduction techniques: automated exposure control, adjustment of the mA and/or kV according to patient size, and/or use of iterative reconstruction technique. COMPARISON: 03/27/2023 FINDINGS: Limitations: None. Lung bases: No abnormality noted. Pleural space: No visualized pleural effusion or pneumothorax. Heart: No abnormality noted. Mediastinum: No abnormality noted. ABDOMEN: Liver: Cirrhotic appearance of the liver is unchanged. No visible mass or ductal dilatation. Gallbladder and bile ducts: Multiple gallstones present. No ductal dilatation or stone. Pancreas: Atrophic pancreas. No inflammatory process or mass noted. Spleen: Stable enlarged spleen measuring 15 cm long. Adrenals: No significant abnormality noted. Kidneys and ureters: Simple left renal cyst/s. No simple cyst follow-up necessary. Right kidney appears normal. No renal stone, hydronephrosis or perinephric fluid. Right kidney appears normal. Stomach and bowel: There is mild prominent fluid layering throughout the intestinal tract without obstruction. There are multiple colonic diverticula. There is mild inflammation of the distal ascending colon and surrounding mesentery. PELVIS: Appendix: No findings to suggest acute appendicitis. Bladder: Appears normal for the degree of filling. No stones or inflammation. No large mass. Masses may not be detected in the absence of opacification. Reproductive: No abnormalities noted. ABDOMEN and PELVIS: Intraperitoneal space: Some free fluid noted. No abscess or free air. Bones/joints: Degenerative changes noted throughout the spine. No acute osseous abnormality seen. Moderate degenerative changes noted in both hips. Soft tissues: Umbilical hernia containing fat. Vasculature: Stable dense atherosclerotic calcification of the aorta and branches. Stable distal abdominal aortic aneurysm of 3.5 cm. No hemorrhage. Lymph nodes: No pathologically enlarged lymph nodes. IMPRESSION: 1. Mild acute ascending colonic diverticulitis without complication. 2. Cirrhosis and splenomegaly. Mild ascites. 3. Cholelithiasis. 4. Stable 3.5 cm distal abdominal aortic aneurysm without rupture. ACR White Paper guidelines (Shazia, et al. JACR 2013; 10(10):789-64) suggest abdomen/pelvis CT or MR imaging follow-up in 2 years. ACT 112: Negative or not required by law. Electronically signed by Bibi Goss 11-05-2024 5:27 PM Medications Administered Pantoprazole Sodium 40 mg/ (Dextrose) 100 mls @ 20 mls/hr IV Q5H AAKASH Stop: 12/05/24 16:59 Last Admin: 11/05/24 17:40 Dose: 8 mg/hr, 20 mls/hr Documented By: Discontinued Medications Famotidine (Pepcid 20mg Iv Push) 20 mg in 5 mls @ 2.5 mls/min IV NOW STA Stop: 11/05/24 16:41 Last Admin: 11/05/24 17:23 Dose: 2.5 mls/min Documented By: SANDIP Pantoprazole Sodium 80 mg/ (Dextrose) 120 mls @ 480 mls/hr IV NOW ONE Stop: 11/05/24 16:54 Last Admin: 11/05/24 17:24 Dose: 480 mls/hr Documented By: SANDIP Metronidazole (Flagyl) 500 mg in 100 mls @ 100 mls/hr IV NOW STA; Protocol Stop: 11/05/24 18:40 Last Admin: 11/05/24 19:07 Dose: 100 mls/hr Documented By: SANDIP Morphine Sulfate (Morphine Sulfate 2 Mg/Ml Carp) 2 mg IV NOW STA Stop: 11/05/24 16:41 Last Admin: 12/31/24 17:21 Dose: 2 mg Documented By: SANDIP Ondansetron HCl (Ondansetron Inj 2 Mg/Ml 2 Ml Vial) 4 mg IV NOW STA Stop: 11/05/24 16:41 Last Admin: 11/05/24 17:19 Dose: 4 mg Documented By: SANDIP Code Status & VTE Plan Code Status FULL CODE Supervising Physician Co-Signing Physician Notes Attending Addendum: Case reviewed with the advanced practitioner. I have personally performed a history and physical examination on the patient. I have reviewed the advanced practitioner's documentation on the date of service referenced in note, and I agree with, and take responsibility for the plan of care. please refer to her notes for full details patient seen and examined, records reviewed by myself as well on exam, patient seen resting in bed, comfortable, not in distress Does report crampy abdominal pain, lower quadrants No active nausea, shortness of breath, palpitations, chest pain no other symptoms VS noted and reviewed General- oriented x 3, not in distress, speaks in sentences with no effort or accessory muscle use Head- atraumatic Eyes- PERRL, EOMI, anicteric ENT- oropharynx clear Neck- supple, no JVD, no adenopathy, no thyromegaly; carotids +2/2, no bruits appreciated Lungs- clear to auscultation bilaterally, no rales/wheezes Heart- normal rate, regular rhythm; no murmur, no gallop, no rub appreciated Abdomen- normal bowel sounds, nondistended, soft, (+) moderate tenderness lower quadrants, no masses or hepatosplenomegaly Extremities- no pretibial edema, no calf tenderness; peripheral pulses intact Neuro- alert, oriented x 3; CN 2-12 grossly intact; motor 5/5 bilaterally;sensation 100% on all extremities; no other gross focal neurologic deficits Skin- warm & dry all labs, imaging noted and reviewed ASSESSMENT AND PLAN> Melena, possible upper GI versus lower GI bleed Acute diverticulitis on CT History of portal hypertension Protonix drip, octreotide drip IV Zosyn N.p.o., IV fluids GI consult for possible EGD and colonoscopy Monitor H&H other diagnoses and plan of care as per advanced practitioner's notes Francois Hamilton MD
[2024-11-05] MEDS ORDERED: STAT IV/IM STA (19:32)
[2024-11-05] MEDS ORDERED: POLYETHYLENE (MIRALAX) 17 GM PACK PO PRN (20:10)
[2024-11-05] MEDS ORDERED: MAGNESIUM HYDROXIDE SUSP 30 ML UDC PO PRN (20:10)
[2024-11-05] MEDS ORDERED: PROMETHAZINE 6.25 MG/50.25 ML BAG IV PRN (20:10)
[2024-11-05] MEDS: CIPROFLOXACIN / D5W 400 MG/200 ML BAG IV STA (20:22)
[2024-11-05] MEDS: OCTREOTIDE ACETATE 500 MCG in SODIUM CHLORIDE 0.9% 100 ML IV SCH (20:23)
[2024-11-05] MEDS ORDERED: FLUTICASONE PROPIONATE NA SPR 16 GM BTL PRN (21:14)
[2024-11-05] MEDS ORDERED: GLUCOSE 10 TAB/TUBE PO PRN (21:25)
[2024-11-05] MEDS ORDERED: GLUCOSE 40% GEL 15 GM TUBE PO PRN (21:25)
[2024-11-05] MEDS ORDERED: DEXTROSE 50% 50 ML SYRINGE IV PRN (21:25)
[2024-11-05] MEDS ORDERED: GLUCAGON FOR INJ 1 MG VIAL SQ PRN (21:25)
[2024-11-05] MEDS ORDERED: CARBOHYDRATES FOR HYPOGLYCEMIA PO PRN (21:25)
[2024-11-05] MEDS ORDERED: PHARMACY GLYCEMIC MGMT CONSULT PRN (21:25)
[2024-11-05] MEDS: PANTOPRAZOLE BOLUS/DRIP IV STA (21:41)
[2024-11-05] MEDS: SODIUM CHLORIDE 0.9% 1,000 ML IV SCH (21:42)
[2024-11-05] MEDS: ADVANCED PROBIOTIC 625 MG CAPSULE PO SCH (21:43)
[2024-11-05] MEDS: PIPERACILLIN/TAZOBACTAM 4.5 GM/100 ML BAG IV STA (21:47)
[2024-11-05 23:44] LABS: Hematocrit (blood only) 31.1 % (37.0-47.0); Hemoglobin 10.2 g/dl (12.0-16.0)
[2024-11-06] MEDS: INSULIN ASPART PER UNIT CHARGE SC SCH ×2 (00:04→17:41)
[2024-11-06] MEDS: PIPERACILLIN/TAZOBACTAM 4.5 GM/100 ML BAG IV SCH (02:42)
[2024-11-06 04:00] LABS: Hematocrit (blood only) 30.4 % (37.0-47.0); Hemoglobin 9.9 g/dl (12.0-16.0); Mean Corpuscular Hemoglobin 28.4 pg (25.0-34.0); Mean Corpuscular Hgb Conc 32.6 g/dL (32.0-36.0); Mean Corpuscular Volume 87.1 fL (80.0-100.0); Mean Platelet Volume 10.5 fL (9.4-12.4); Platelet Count 121 K/uL (130-400); RDW Coefficient of Variation 15.4 % (11.5-14.5); RDW Standard Deviation 49.1 fL (36.4-46.3); Red Blood Count 3.49 M/uL (4.20-5.40); White Blood Count 8.83 K/ul (4.8-10.8)
[2024-11-06 04:22] LABS: Albumin Level 2.8 gm/dl (3.4-5.0); BUN Creatinine Ratio 28.9 (10-20); Bilirubin,Total 1.1 mg/dl (0.2-1.0); Calcium 8.4 mg/dl (8.6-10.3); Globulin 2.9 gm/dl (2.5-4.0); Magnesium 1.9 mg/dl (1.7-2.4); Phosphorus 2.8 mg/dl (2.5-4.9); Total Protein 5.7 gm/dl (6.0-8.3)
[2024-11-06 04:28] LABS: Troponin I High Sensitivity 22.6 pg/ml (0-14)
[2024-11-06] MEDS: LANTUS PER UNIT CHARGE SQ SCH (11:10)
[2024-11-06] MEDS: LEVOTHYROXINE SODIUM 100 MCG TABLET PO SCH (11:11)
--- NOTE | 2024-11-06 11:39 | Gastrointestinal Consultation ---
Date of Consultation November 06, 2024 Assessment & Plan (1) Acute GI bleeding: Pleasant lady with melenic stools by history. This could well be related to her portal hypertensive gastropathy. Does not seem consistent with variceal hemorrhage. She could also have developed an ulcer at some point. I agree with PPI. She is on octreotide now so will have to stay on it for 72 hours. She is adamantly refusing EGD so will observe at this time. History of Present Illness Reason for Consultation: melena Attending Physician: Brigido Shanks MD History of Present Illness 89 year old female who says she has had black stools over the last couple of days but none since yesterday. She says she was having only one and maybe two stools at a time. She does take iron but only every other day and she says her stools are usually not black. She has not been complaining of abdominal pain although she does say that on occasion she gets some discomfort in her lower abdomen. She does see bright red blood on occasion, she says from hemorrhoids. She had an EGD in August 2023 and says she is "not going to have another one no matter what". Hemoglobin has remained stable since admit. Allergies Allergy/AdvReac Type Severity Reaction Status Date / Time vitamin E (d-alpha Allergy Intermediate ITCHY Verified 08/21/24 11:20 tocopherol) RASH, HIVES--PER [facility] 09/21/21 ENCOUNTER amoxicillin AdvReac Intermediate STOMACH Verified 08/21/24 11:20 UPSET--PER [facility] 09/21/21 ENCOUNTER baclofen AdvReac Intermediate Falls Verified 08/21/24 11:20 clavulanic acid AdvReac Intermediate STOMACH Verified 08/21/24 11:20 UPSET--PER [facility] 09/21/21 ENCOUNTER dulaglutide [From [facility]] AdvReac Intermediate Vomiting Verified 08/21/24 11:20 ropinirole AdvReac Intermediate Falls Verified 08/21/24 11:20 tramadol AdvReac Intermediate Falls Verified 08/21/24 11:20 Home Medications Medication Instructions Recorded Confirmed Type aspirin 81 mg tablet,delayed 81 mg PO QAM 04/10/19 11/05/24 History release (Kendra Low Dose Aspirin) atorvastatin 20 mg tablet 20 mg PO QPM 04/10/19 11/05/24 History clopidogrel 75 mg tablet 75 mg PO QAM 04/10/19 11/05/24 History ferrous sulfate 325 mg (65 mg 325 mg PO 3XWK 01/01/22 11/05/24 History iron) tablet (FeroSul) gabapentin 300 mg capsule 300 mg PO HS PRN Pain 01/01/22 11/05/24 History insulin degludec 200 unit/mL (3 42 unit subcut QAM 01/01/22 11/05/24 History mL) subcutaneous pen (Tresiba FlexTouch U-200 insulin) empagliflozin 25 mg tablet 25 mg PO QAM 09/12/22 11/05/24 History (Jardiance) furosemide 40 mg tablet 20 mg PO QAM 09/12/22 11/05/24 History levothyroxine 100 mcg tablet 100 mcg PO QAM 09/12/22 11/05/24 History cranberry 500 mg capsule 500 mg PO HS 07/10/23 11/05/24 History fluticasone propionate 50 1 spray intranasal DAILY PRN 07/10/23 11/05/24 History mcg/actuation nasal Allergy Symptoms spray,suspension lidocaine 5 % topical patch 1 patch transdermal DIRECTED 07/10/23 11/05/24 History PRN Pain trolamine salicylate 10 % topical 1 applic topical DAILY PRN Pain 07/10/23 11/05/24 History cream (Aspercreme) hydroxyzine HCl 10 mg tablet 10 mg PO Q12 PRN Itching 09/02/23 11/05/24 History melatonin 5 mg chewable tablet 10 mg PO HS 09/02/23 11/05/24 History famotidine 40 mg tablet 40 mg PO DAILY 12/18/23 11/05/24 History Novolog FlexPen U-100 Insulin 6 - 8 unit subcut TID 11/05/24 11/05/24 History Patient History Medical History History of Graves' disease History of acute renal failure Disorder of acid-base balance CKD (chronic kidney disease) stage 3, GFR 30-59 ml/min DVT prophylaxis EARL (acute kidney injury) Metabolic acidosis Hypoglycemic episode in patient with diabetes mellitus Pneumonia Sinus bradycardia Hypertension PAF (paroxysmal atrial fibrillation) Atrial fibrillation with rapid ventricular response Cirrhosis Sepsis Acute metabolic encephalopathy Hypothyroidism PAD (peripheral artery disease) DM II (diabetes mellitus, type II), controlled Cholelithiasis Pancytopenia Cirrhosis Aneurysm of infrarenal abdominal aorta GERD (gastroesophageal reflux disease) Graves disease Chest pain CKD (chronic kidney disease), stage III COPD (chronic obstructive pulmonary disease) PAD (peripheral artery disease) HLD (hyperlipidemia) Diabetes mellitus, type II Anemia HTN (hypertension) Family History Other Diabetes Hypertension Social History Smoking Status: Former smoker Hx Alcohol Use: Yes Alcohol Intake Frequency: Monthly or Less Alcohol Intake Frequency Comment: Holidays Hx Substance Use: No Preferred Language: Tajik Communication Ability: Effective [employer] Required: No Beliefs That Will Affect Care: None marital status: Current Living Situation: Alone Current Living Situation Comment: unable to determine How many Children do You have: 3 Feels Safe at Home: Yes Safety Concerns: Feels Safe At This Time Assistive Devices: Cane, Glasses and Walker Review of Systems Review of Systems: All systems reviewed & are unremarkable except as noted in HPI & below Physical Exam Physical Exam: Pleasant elderly woman in no distress Constitutional: WD/WN, vitals as above Neck: trachea midline, no thyromegaly Respiratory: normal respiratory effort, lungs clear to auscultation Cardiovascular: RRR, no murmur, no edema Gastrointestinal (Abdomen): Inspection/Auscultation: abdomen normal to inspection Percussion/Palpation: + abdomen tender (in the midepigastrium) and abdomen soft Musculoskeletal: Extremities: extremities normal to inspection Results & Data Vital Signs (Past 12 Hours) Vital Signs Pulse Resp BP Pulse Ox O2 Del Method O2 Flow Rate 11/06/24 11:00 63 14 156/43 H 92 Room Air 11/06/24 10:12 63 17 141/38 H 99 Room Air 11/06/24 09:00 54 L 16 120/40 L 95 Room Air 11/06/24 08:00 59 L 14 125/55 L 97 Room Air 11/06/24 07:17 63 11/06/24 07:07 68 19 140/56 L 97 11/06/24 06:18 63 17 97 Nasal Cannula 2 11/06/24 03:08 Nasal Cannula 2 11/06/24 03:02 61 14 168/87 H 98 Nasal Cannula 2 11/06/24 02:05 63 14 171/64 H 99 Nasal Cannula 2 11/06/24 01:08 65 18 132/103 H 94 Room Air Laboratory Results 11/06/24 11/06/24 11/06/24 Range/Units 06:07 03:23 03:23 WBC 8.83 (4.8-10.8) K/ul RBC 3.49 L (4.20-5.40) M/uL Hgb 9.9 L (12.0-16.0) g/dl Hct 30.4 L (37.0-47.0) % MCV 87.1 (80.0-100.0) fL MCH 28.4 (25.0-34.0) pg MCHC 32.6 (32.0-36.0) g/dL RDW Std Deviation 49.1 H (36.4-46.3) fL RDW Coeff of Daniela 15.4 H (11.5-14.5) % Plt Count 121 L (130-400) K/uL MPV 10.5 (9.4-12.4) fL Immature Gran % (Auto) % Neut % (Auto) % Lymph % (Auto) % [place] % (Auto) % Eos % (Auto) % Baso % (Auto) % Neut # (Auto) (1.40-6.50) K/uL Lymph # (Auto) (1.20-3.40) K/uL [place] # (Auto) (0.11-0.59) K/uL Eos # (Auto) (0.00-0.50) K/uL Baso # (Auto) (0.00-0.20) K/uL Immature Gran # (Auto) (0.01-0.20) K/uL Sodium 133 L (136-145) mmol/L Potassium 4.0 (3.5-5.1) mmol/L Chloride 104 (98-107) mmol/L Carbon Dioxide 21 (21-32) mmol/L Anion Gap 8 (3-11) BUN 35 H (6-23) mg/dl Creatinine 1.21 H (0.6-1.2) mg/dl Est Cr Clr Drug Dosing 26.0 ml/min eGFR 43.11 BUN/Creatinine Ratio 28.9 H (10-20) Glucose 114 H (70-99(Fasting)) mg/dl POC Glucose 137 H (70-99) mg/dl Calcium 8.4 L (8.6-10.3) mg/dl Phosphorus 2.8 (2.5-4.9) mg/dl Magnesium 1.9 (1.7-2.4) mg/dl Total Bilirubin 1.1 H (0.2-1.0) mg/dl AST 20 (13-39) U/L ALT 12 (7-52) U/L Alkaline Phosphatase 92 (34-104) U/L Troponin I High Sens 33.7 H D 22.6 H (0-14) pg/ml Total Protein 5.7 L (6.0-8.3) gm/dl Albumin 2.8 L (3.4-5.0) gm/dl Globulin 2.9 (2.5-4.0) gm/dl Albumin/Globulin Ratio 1.0 (0.9-2) TSH (0.300-4.500) uIu/ml Blood Type Antibody Screen Crossmatch 11/05/24 11/05/24 11/05/24 Range/Units 23:55 23:25 22:51 WBC (4.8-10.8) K/ul RBC (4.20-5.40) M/uL Hgb 10.2 L (12.0-16.0) g/dl Hct 31.1 L (37.0-47.0) % MCV (80.0-100.0) fL MCH (25.0-34.0) pg MCHC (32.0-36.0) g/dL RDW Std Deviation (36.4-46.3) fL RDW Coeff of Daniela (11.5-14.5) % Plt Count (130-400) K/uL MPV (9.4-12.4) fL Immature Gran % (Auto) % Neut % (Auto) % Lymph % (Auto) % [place] % (Auto) % Eos % (Auto) % Baso % (Auto) % Neut # (Auto) (1.40-6.50) K/uL Lymph # (Auto) (1.20-3.40) K/uL [place] # (Auto) (0.11-0.59) K/uL Eos # (Auto) (0.00-0.50) K/uL Baso # (Auto) (0.00-0.20) K/uL Immature Gran # (Auto) (0.01-0.20) K/uL Sodium (136-145) mmol/L Potassium (3.5-5.1) mmol/L Chloride (98-107) mmol/L Carbon Dioxide (21-32) mmol/L Anion Gap (3-11) BUN (6-23) mg/dl Creatinine (0.6-1.2) mg/dl Est Cr Clr Drug Dosing ml/min eGFR BUN/Creatinine Ratio (10-20) Glucose (70-99(Fasting)) mg/dl POC Glucose 106 H 112 H (70-99) mg/dl Calcium (8.6-10.3) mg/dl Phosphorus (2.5-4.9) mg/dl Magnesium (1.7-2.4) mg/dl Total Bilirubin (0.2-1.0) mg/dl AST (13-39) U/L ALT (7-52) U/L Alkaline Phosphatase (34-104) U/L Troponin I High Sens (0-14) pg/ml Total Protein (6.0-8.3) gm/dl Albumin (3.4-5.0) gm/dl Globulin (2.5-4.0) gm/dl Albumin/Globulin Ratio (0.9-2) TSH (0.300-4.500) uIu/ml Blood Type Antibody Screen Crossmatch 11/05/24 11/05/24 Range/Units 19:25 16:58 WBC 11.86 H (4.8-10.8) K/ul RBC 4.03 L (4.20-5.40) M/uL Hgb 11.5 L (12.0-16.0) g/dl Hct 35.4 L (37.0-47.0) % MCV 87.8 (80.0-100.0) fL MCH 28.5 (25.0-34.0) pg MCHC 32.5 (32.0-36.0) g/dL RDW Std Deviation 50.4 H (36.4-46.3) fL RDW Coeff of Daniela 15.6 H (11.5-14.5) % Plt Count 146 (130-400) K/uL MPV 10.3 (9.4-12.4) fL Immature Gran % (Auto) 0.5 % Neut % (Auto) 82.8 % Lymph % (Auto) 7.2 % [place] % (Auto) 9.0 % Eos % (Auto) 0.1 % Baso % (Auto) 0.4 % Neut # (Auto) 9.82 H (1.40-6.50) K/uL Lymph # (Auto) 0.85 L (1.20-3.40) K/uL [place] # (Auto) 1.07 H (0.11-0.59) K/uL Eos # (Auto) 0.01 (0.00-0.50) K/uL Baso # (Auto) 0.05 (0.00-0.20) K/uL Immature Gran # (Auto) 0.06 (0.01-0.20) K/uL Sodium 135 L (136-145) mmol/L Potassium 4.4 (3.5-5.1) mmol/L Chloride 103 (98-107) mmol/L Carbon Dioxide 21 (21-32) mmol/L Anion Gap 11 (3-11) BUN 36 H (6-23) mg/dl Creatinine 1.24 H (0.6-1.2) mg/dl Est Cr Clr Drug Dosing 25.4 ml/min eGFR 41.86 BUN/Creatinine Ratio 29.0 H (10-20) Glucose 111 H (70-99(Fasting)) mg/dl POC Glucose (70-99) mg/dl Calcium 9.2 (8.6-10.3) mg/dl Phosphorus (2.5-4.9) mg/dl Magnesium 1.9 (1.7-2.4) mg/dl Total Bilirubin 1.4 H (0.2-1.0) mg/dl AST 27 (13-39) U/L ALT 16 (7-52) U/L Alkaline Phosphatase 116 H (34-104) U/L Troponin I High Sens 19.5 H 20.2 H (0-14) pg/ml Total Protein 6.7 (6.0-8.3) gm/dl Albumin 3.3 L (3.4-5.0) gm/dl Globulin 3.4 (2.5-4.0) gm/dl Albumin/Globulin Ratio 1.0 (0.9-2) TSH 0.442 (0.300-4.500) uIu/ml Blood Type B Positive Antibody Screen NEGATIVE Crossmatch See Detail Diagnostic Findings Chest X-Ray 11/05/24 16:25 EXAM: Radiograph of the Chest 1 View INDICATION: Weakness. TECHNIQUE: Frontal view of the chest. COMPARISON: 09/08/2023 FINDINGS: Lungs and pleural spaces: Stable interstitial scarring. No consolidation or pulmonary edema. No pleural effusion or pneumothorax. Heart: Shape and configuration within normal limits allowing for technique. Mediastinum: Normal contour. Bones/joints: Old bilateral rib fractures. Soft tissues: No abnormality noted. No radiopaque foreign body noted. Vasculature: Stable ectatic calcified aorta with left carotid stent. Upper abdomen: No abnormality noted. IMPRESSION: Chronic changes. No acute disease. ACT 112: Negative or not required by law. Electronically signed by Bibi Goss 11-05-2024 4:55 PM Abdomen/Pelvis CT 11/05/24 16:40 EXAM: CT Abdomen and Pelvis Without Intravenous Contrast INDICATION: Vomiting. Black tarry stools. TECHNIQUE: Axial computed tomography images of the abdomen and pelvis without intravenous contrast. Sagittal and coronal reformatted images were created and reviewed. This CT exam was performed using one or more of the following dose reduction techniques: automated exposure control, adjustment of the mA and/or kV according to patient size, and/or use of iterative reconstruction technique. COMPARISON: 03/27/2023 FINDINGS: Limitations: None. Lung bases: No abnormality noted. Pleural space: No visualized pleural effusion or pneumothorax. Heart: No abnormality noted. Mediastinum: No abnormality noted. ABDOMEN: Liver: Cirrhotic appearance of the liver is unchanged. No visible mass or ductal dilatation. Gallbladder and bile ducts: Multiple gallstones present. No ductal dilatation or stone. Pancreas: Atrophic pancreas. No inflammatory process or mass noted. Spleen: Stable enlarged spleen measuring 15 cm long. Adrenals: No significant abnormality noted. Kidneys and ureters: Simple left renal cyst/s. No simple cyst follow-up necessary. Right kidney appears normal. No renal stone, hydronephrosis or perinephric fluid. Right kidney appears normal. Stomach and bowel: There is mild prominent fluid layering throughout the intestinal tract without obstruction. There are multiple colonic diverticula. There is mild inflammation of the distal ascending colon and surrounding mesentery. PELVIS: Appendix: No findings to suggest acute appendicitis. Bladder: Appears normal for the degree of filling. No stones or inflammation. No large mass. Masses may not be detected in the absence of opacification. Reproductive: No abnormalities noted. ABDOMEN and PELVIS: Intraperitoneal space: Some free fluid noted. No abscess or free air. Bones/joints: Degenerative changes noted throughout the spine. No acute osseous abnormality seen. Moderate degenerative changes noted in both hips. Soft tissues: Umbilical hernia containing fat. Vasculature: Stable dense atherosclerotic calcification of the aorta and branches. Stable distal abdominal aortic aneurysm of 3.5 cm. No hemorrhage. Lymph nodes: No pathologically enlarged lymph nodes. IMPRESSION: 1. Mild acute ascending colonic diverticulitis without complication. 2. Cirrhosis and splenomegaly. Mild ascites. 3. Cholelithiasis. 4. Stable 3.5 cm distal abdominal aortic aneurysm without rupture. ACR White Paper guidelines (Shazia et al. JACR 2013; 10(10):789-94) suggest abdomen/pelvis CT or MR imaging follow-up in 2 years. ACT 112: Negative or not required by law. Electronically signed by Bibi Goss 11-05-2024 5:27 PM
--- NOTE | 2024-11-06 12:49 | Hospitalist Progress Note ---
Date of Service November 06, 2024 Assessment & Plan (1) Acute GI bleeding: Plan: This is more acute on chronic and likely because of underlying portal gastropathy plus minus variceal bleed, patient refused EGD as apparently in the past no pathology was found and she does not want to undergo another one. Recommendation by gastroenterology was reviewed, continue monitoring H&H and transfuse as needed, hemoglobin today is 9.9 which is somewhat dropped from yesterday but not significantly. Continue with octreotide for 72 hours. Continue with Protonix infusion and monitor. (2) Diverticulitis of ascending colon: Plan: This is not clinically significant, patient is not symptomatic patient is clinically stable, afebrile with no leukocytosis, may run Zosyn for 1 more day but then we can transition to oral antibiotic such as Augmentin. (3) Elevated troponin: Plan: Troponin was initially 19 which went to 33, echocardiogram showed concentric LVH, ejection fraction of 65 to 70%, grade 1 diastolic LV dysfunction. this elevated troponin is probably nonischemic, this could be due to demand ischemia as well as decreased clearance because of underlying kidney dysfunction. May monitor for now and keep the patient on telemetry. (4) CKD (chronic kidney disease) stage 3, GFR 30-59 ml/min: Plan: Kidney function is at baseline corresponding with creatinine of 1.2, no nephrotoxins. (5) Hypothyroidism (acquired): Plan: Continue with Synthroid 100 mcg daily. (6) DM II (diabetes mellitus, type II), controlled: Plan: Glycemic control is adequate, continue with Lantus 10 units twice daily and sliding scale coverage. Plan Patient to complete 72 hours of octreotide, continue with Protonix infusion, monitor H&H daily and transfuse as needed. Will start diet, potentially transition to p.o. antibiotic likely tomorrow. Admission and Anticipated Discharge Date Admission Date: November 05, 2024 Subjective Patient is an 89-year-old very pleasant female with history of diabetes mellitus type 2, hypothyroidism, CKD stage III, COPD, peripheral vascular disease status post stenting, coronary artery disease and severe left carotid artery disease and portal hypertensive gastropathy and liver cirrhosis due to [place] with esophageal varices, patient has had chronic ongoing anemia with intermittent dark stool, patient has been getting transfusion almost periodically as outpatient. Patient comes in with 1 event of coffee-ground emesis and also intermittent dark stool. Her hemoglobin and hematocrit was slightly lower than baseline. It seems that at baseline she is around 11.5. Patient was placed on octreotide, seen by gastroenterology who recommended this to be continued for 72 hours, patient has been refusing EGD because she underwent several of them and no culprit was found. Patient was seen and examined, clinically stable, appears slightly pale, her son was at bedside. Plan of care was discussed Physical Exam Physical Exam: VITALS: Reviewed. WEIGHT/BMI reviewed. GEN: Healthy appearing, well-developed, NAD. PSYCH: Good Judgment. AOx3. Normal memory, mood, and affect. HEENT: Appears pale nonicteric. ABD: Soft, NT/ND, NBS, no masses or organomegaly. MSK: No deformities, Normal gait. EXT: No clubbing, cyanosis, or edema. NEURO: Normal muscle strength and tone. No focal deficits. Results & Data Results & Data Vital Signs (Past 12 Hours) Vital Signs Pulse Resp BP Pulse Ox O2 Del Method O2 Flow Rate 11/06/24 11:00 63 14 156/43 H 92 Room Air 11/06/24 10:12 63 17 141/38 H 99 Room Air 11/06/24 09:00 54 L 16 120/40 L 95 Room Air 11/06/24 08:00 59 L 14 125/55 L 97 Room Air 11/06/24 07:17 63 11/06/24 07:07 68 19 140/56 L 97 11/06/24 06:18 63 17 97 Nasal Cannula 2 11/06/24 03:08 Nasal Cannula 2 11/06/24 03:02 61 14 168/87 H 98 Nasal Cannula 2 11/06/24 02:05 63 14 171/64 H 99 Nasal Cannula 2 11/06/24 01:08 65 18 132/103 H 94 Room Air Laboratory Results Laboratory Results - last 24 hr 11/05/24 11/05/24 11/05/24 16:58 19:25 22:51 WBC 11.86 H RBC 4.03 L Hgb 11.5 L Hct 35.4 L MCV 87.8 MCH 28.5 MCHC 32.5 RDW Std Deviation 50.4 H RDW Coeff of Daniela 15.6 H Plt Count 146 MPV 10.3 Immature Gran % (Auto) 0.5 Neut % (Auto) 82.8 Lymph % (Auto) 7.2 [place] % (Auto) 9.0 Eos % (Auto) 0.1 Baso % (Auto) 0.4 Neut # (Auto) 9.82 H Lymph # (Auto) 0.85 L [place] # (Auto) 1.07 H Eos # (Auto) 0.01 Baso # (Auto) 0.05 Immature Gran # (Auto) 0.06 Sodium 135 L Potassium 4.4 Chloride 103 Carbon Dioxide 21 Anion Gap 11 BUN 36 H Creatinine 1.24 H Est Cr Clr Drug Dosing 25.4 eGFR 41.86 BUN/Creatinine Ratio 29.0 H Glucose 111 H POC Glucose 112 H Calcium 9.2 Phosphorus Magnesium 1.9 Total Bilirubin 1.4 H AST 27 ALT 16 Alkaline Phosphatase 116 H Troponin I High Sens 20.2 H 19.5 H Total Protein 6.7 Albumin 3.3 L Globulin 3.4 Albumin/Globulin Ratio 1.0 TSH 0.442 Blood Type B Positive Antibody Screen NEGATIVE Crossmatch See Detail 11/05/24 11/05/24 11/06/24 23:25 23:55 03:23 WBC 8.83 RBC 3.49 L Hgb 10.2 L 9.9 L Hct 31.1 L 30.4 L MCV 87.1 MCH 28.4 MCHC 32.6 RDW Std Deviation 49.1 H RDW Coeff of Daniela 15.4 H Plt Count 121 L MPV 10.5 Immature Gran % (Auto) Neut % (Auto) Lymph % (Auto) [place] % (Auto) Eos % (Auto) Baso % (Auto) Neut # (Auto) Lymph # (Auto) [place] # (Auto) Eos # (Auto) Baso # (Auto) Immature Gran # (Auto) Sodium 133 L Potassium 4.0 Chloride 104 Carbon Dioxide 21 Anion Gap 8 BUN 35 H Creatinine 1.21 H Est Cr Clr Drug Dosing 26.0 eGFR 43.11 BUN/Creatinine Ratio 28.9 H Glucose 114 H POC Glucose 106 H Calcium 8.4 L Phosphorus 2.8 Magnesium 1.9 Total Bilirubin 1.1 H AST 20 ALT 12 Alkaline Phosphatase 92 Troponin I High Sens 22.6 H Total Protein Albumin Globulin Albumin/Globulin Ratio TSH Blood Type Antibody Screen Crossmatch 11/06/24 11/06/24 03:23 06:07 WBC RBC Hgb Hct MCV MCH MCHC RDW Std Deviation RDW Coeff of Daniela Plt Count MPV Immature Gran % (Auto) Neut % (Auto) Lymph % (Auto) [place] % (Auto) Eos % (Auto) Baso % (Auto) Neut # (Auto) Lymph # (Auto) [place] # (Auto) Eos # (Auto) Baso # (Auto) Immature Gran # (Auto) Sodium Potassium Chloride Carbon Dioxide Anion Gap BUN Creatinine Est Cr Clr Drug Dosing eGFR BUN/Creatinine Ratio Glucose POC Glucose 137 H Calcium Phosphorus Magnesium Total Bilirubin AST ALT Alkaline Phosphatase Troponin I High Sens 33.7 H D Total Protein 5.7 L Albumin 2.8 L Globulin 2.9 Albumin/Globulin Ratio 1.0 TSH Blood Type Antibody Screen Crossmatch Diagnostic Findings Chest X-Ray 11/05/24 16:25 EXAM: Radiograph of the Chest 1 View INDICATION: Weakness. TECHNIQUE: Frontal view of the chest. COMPARISON: 09/08/2023 FINDINGS: Lungs and pleural spaces: Stable interstitial scarring. No consolidation or pulmonary edema. No pleural effusion or pneumothorax. Heart: Shape and configuration within normal limits allowing for technique. Mediastinum: Normal contour. Bones/joints: Old bilateral rib fractures. Soft tissues: No abnormality noted. No radiopaque foreign body noted. Vasculature: Stable ectatic calcified aorta with left carotid stent. Upper abdomen: No abnormality noted. IMPRESSION: Chronic changes. No acute disease. ACT 112: Negative or not required by law. Electronically signed by Bibi Goss 11-05-2024 4:55 PM Abdomen/Pelvis CT 11/05/24 16:40 EXAM: CT Abdomen and Pelvis Without Intravenous Contrast INDICATION: Vomiting. Black tarry stools. TECHNIQUE: Axial computed tomography images of the abdomen and pelvis without intravenous contrast. Sagittal and coronal reformatted images were created and reviewed. This CT exam was performed using one or more of the following dose reduction techniques: automated exposure control, adjustment of the mA and/or kV according to patient size, and/or use of iterative reconstruction technique. COMPARISON: 03/27/2023 FINDINGS: Limitations: None. Lung bases: No abnormality noted. Pleural space: No visualized pleural effusion or pneumothorax. Heart: No abnormality noted. Mediastinum: No abnormality noted. ABDOMEN: Liver: Cirrhotic appearance of the liver is unchanged. No visible mass or ductal dilatation. Gallbladder and bile ducts: Multiple gallstones present. No ductal dilatation or stone. Pancreas: Atrophic pancreas. No inflammatory process or mass noted. Spleen: Stable enlarged spleen measuring 15 cm long. Adrenals: No significant abnormality noted. Kidneys and ureters: Simple left renal cyst/s. No simple cyst follow-up necessary. Right kidney appears normal. No renal stone, hydronephrosis or perinephric fluid. Right kidney appears normal. Stomach and bowel: There is mild prominent fluid layering throughout the intestinal tract without obstruction. There are multiple colonic diverticula. There is mild inflammation of the distal ascending colon and surrounding mesentery. PELVIS: Appendix: No findings to suggest acute appendicitis. Bladder: Appears normal for the degree of filling. No stones or inflammation. No large mass. Masses may not be detected in the absence of opacification. Reproductive: No abnormalities noted. ABDOMEN and PELVIS: Intraperitoneal space: Some free fluid noted. No abscess or free air. Bones/joints: Degenerative changes noted throughout the spine. No acute osseous abnormality seen. Moderate degenerative changes noted in both hips. Soft tissues: Umbilical hernia containing fat. Vasculature: Stable dense atherosclerotic calcification of the aorta and branches. Stable distal abdominal aortic aneurysm of 3.5 cm. No hemorrhage. Lymph nodes: No pathologically enlarged lymph nodes. IMPRESSION: 1. Mild acute ascending colonic diverticulitis without complication. 2. Cirrhosis and splenomegaly. Mild ascites. 3. Cholelithiasis. 4. Stable 3.5 cm distal abdominal aortic aneurysm without rupture. ACR White Paper guidelines (Shazia, et al. JACR 2013; 10(10):789-94) suggest abdomen/pelvis CT or MR imaging follow-up in 2 years. ACT 112: Negative or not required by law. Electronically signed by Bibi Goss 11-05-2024 5:27 PM Medications Administered Current Inpatient Medications Acetaminophen (Acetaminophen 325 Mg Tab) 650 mg PO Q4H PRN PRN Reason: Pain or Fever Stop: 12/05/24 20:09 Atorvastatin Calcium (Atorvastatin 20 Mg Tab) 20 mg PO QPM AAKASH Stop: 12/06/24 20:59 Dextrose (Dextrose 50% 50 Ml Syringe) 25 - 50 ml IV UD PRN; Protocol PRN Reason: Hypoglycemia Protocol Stop: 12/05/24 21:24 Fluticasone Propionate (Fluticasone Propionate Na Spr 16 Gm Btl) 1 sprays NA DAILY PRN PRN Reason: Allergy Symptoms Stop: 12/05/24 21:13 Glucagon (Glucagon For Inj 1 Mg Vial) 1 mg SQ UD PRN; Protocol PRN Reason: Hypoglycemia Protocol Stop: 12/05/24 21:24 Glucose (Glucose 40% Gel 15 Gm Tube) 15 - 30 gm PO UD PRN; Protocol PRN Reason: Hypoglycemia Protocol Stop: 12/05/24 21:24 Glucose (Glucose 10 Tab/Tube) 4 - 8 tab PO UD PRN; Protocol PRN Reason: Hypoglycemia Protocol Stop: 12/05/24 21:24 Pantoprazole Sodium 40 mg/ (Dextrose) 100 mls @ 20 mls/hr IV Q5H [facility] Stop: 12/05/24 16:59 Last Admin: 11/06/24 08:58 Dose: 8 mg/hr, 20 mls/hr Octreotide Acetate 500 mcg/ (Sodium Chloride) 100.5 mls @ 10.05 mls/hr IV .Q10H [facility] Stop: 12/05/24 19:44 Last Admin: 11/06/24 06:06 Dose: 50 mcg/hr, 10.1 mls/hr Piperacillin Sod/Tazobactam Sod (Zosyn) 4.5 gm in 100 mls @ 25 mls/hr IV Q8H [facility]; Protocol Stop: 11/16/24 01:59 Last Admin: 11/06/24 11:11 Dose: 25 mls/hr Promethazine HCl (Phenergan) 6.25 mg in 50.25 mls @ 201 mls/hr IV Q6H PRN PRN Reason: Nausea And Vomiting Stop: 12/05/24 20:09 Insulin Aspart (Insulin Aspart Per Unit Charge) 0 units SC Q6 [facility] Stop: 12/06/24 00:00 Last Admin: 11/06/24 06:10 Dose: Not Given Insulin Glargine (Lantus Per Unit Charge) 10 units SQ BID [facility] Stop: 12/06/24 08:59 Last Admin: 11/06/24 11:10 Dose: 10 units Lactobacillus Acidophilus (Advanced Probiotic 625 Mg Capsule) 1,250 mg PO DAILY [facility] Stop: 12/05/24 20:44 Last Admin: 11/06/24 11:11 Dose: 1,250 mg Levothyroxine Sodium (Levothyroxine Sodium 100 Mcg Tablet) 100 mcg PO DAILYBB [facility] Stop: 12/06/24 06:29 Last Admin: 11/06/24 11:11 Dose: 100 mcg Magnesium Hydroxide (Magnesium Hydroxide Susp 30 Ml Udc) 30 ml PO Q12H PRN PRN Reason: Constipation Stop: 12/05/24 20:09 Melatonin (Melatonin 3 Mg Tab) 9 mg PO HS AAKASH Stop: 12/06/24 20:59 Miscellaneous (Carbohydrates For Hypoglycemia ) 15 - 30 gm PO UD PRN PRN Reason: Hypoglycemia Protocol Stop: 12/05/24 21:24 Miscellaneous Information (Pharmacy Glycemic Mgmt Consult) 1 each N/A UD PRN PRN Reason: Consult Stop: 12/05/24 21:24 Polyethylene Glycol (Polyethylene (Miralax) 17 Gm Pack) 17 gm PO DAILY PRN PRN Reason: Constipation Stop: 12/05/24 20:09 (4) CKD (chronic kidney disease) stage 3, GFR 30-59 ml/min Chronic kidney disease stage 3 subtype: stage 3b (GFR 30-44) Qualified Code(s): N18.32 - Chronic kidney disease, stage 3b (6) DM II (diabetes mellitus, type II), controlled Diabetes mellitus technician terminal and repeater insulin use: with technician terminal and repeater use Diabetes mellitus complication status: with kidney complications Diabetes mellitus complication detail: with chronic kidney disease Chronic kidney disease stage: stage 3 (moderate) Qualified Code(s): E11.22 - Type 2 diabetes mellitus with diabetic chronic kidney disease; N18.30 - Chronic kidney disease, stage 3 unspecified; 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
--- NOTE | 2024-11-06 15:22 | Pharmacy Report ---
Pharmacy Glycemic Short Note 2 - Date of Service November 06, 2024 - Glycemic Short BSG Results (Last 24 hours): 11/05/24 11/05/24 11/05/24 16:58 22:51 23:55 Glucose 111 H POC Glucose 112 H 106 H 11/06/24 11/06/24 11/06/24 03:23 06:07 13:31 Glucose 114 H POC Glucose 137 H 145 H OUTPATIENT ANTIDIABETIC REGIMEN: * Tresiba 42 units SC AM * Novolog 6-8 units SC AC * Jardiance 25 mg PO AM HbA1c: * pending ASSESSMENT: * 89 yo F admitted on 11/05/24 secondary to acute GI bleed. Pharmacy has been consulted to assist with inpatient glycemic management. Patient is a Type 2 diabetic as an outpatient. Please refer to outpatient regimen and most recent HbA1c above. * Started on 10 units of basal BID overnight. Will continue for now. Was NPO but now is ordered a clear liquid diet. * Novolog started based on weight/stress of 2. Continue for now. * On octreotide and protonix drips for GI bleed. Zosyn for abx coverage. PLAN FOR INPATIENT GLYCEMIC CONTROL: * Hold outpatient oral diabetes medications * Basal insulin * Lantus 10 units SQ BID * Bolus insulin * NovoLog per scale ACHS or Q6hrs while NPO * Goal Range: Low 120 mg/dL - High 160 mg/dL * Correction Factor: 40 mg/dL/unit * Nutritional / Prandial insulin per carb ratio of 1 unit per 13 grams CHO consumed
[2024-11-06 16:09] LABS: Appearance Urine Cloudy (Clear); Bacteria Urine Automated None Seen (None Seen); Bilirubin Urine Negative (Negative); Blood Urine Negative (Negative); Color Urine Yellow; Epithelial Cell Urine Auto 0-2 /hpf (0-2); Glucose Urine UA 3+ (Negative); Ketones Urine Negative (Negative); Leukocyte Esterase Urine 2+ (Negative); Nitrite Urine Negative (Negative); Protein Urine 2+ (Negative); RBC Urine Automated 0-2 /hpf (0-2); Specific Gravity Urine 1.024 (1.000-1.030); Urobilinogen Urine Negative (Negative); WBC Urine Automated >50 /hpf (0-5); pH Urine 7.5 (4.5-7.5)
[2024-11-06] MEDS ORDERED: Nursing to Pharmacy Communication SCH (17:15)
[2024-11-06] MEDS: ACETAMINOPHEN 325 MG TAB PO PRN (20:34)
[2024-11-06] MEDS: MELATONIN 3 MG TAB PO SCH (20:34)
[2024-11-06] MEDS: ATORVASTATIN 20 MG TAB PO SCH (20:35)
--- NOTE | 2024-11-06 21:57 | Electrocardiogram Report ---
Test Reason : Blood Pressure : */* mmHG Vent. Rate : 78 BPM Atrial Rate : 78 BPM P-R Int : 198 ms QRS Dur : 88 ms QT Int : 394 ms P-R-T Axes : 71 -23 78 degrees QTcB Int : 449 ms Normal sinus rhythm Normal ECG When compared with ECG of 08-Sep-2023 14:09, Criteria for Septal infarct are no longer Present Criteria for Inferior infarct are no longer Present Confirmed by Marquise Silva ([id number]) on 11/06/2024 9:56:58 PM Referred By: REFERRED SELF Confirmed By: Marquise Silva
[2024-11-07] MEDS: oxyCODONE HCL IR 5 MG TAB (IMMEDIATE RELEASE) PO STA (01:08)
--- NOTE | 2024-11-07 01:14 | Communication Note ---
Date of Service: November 07, 2024 Notified by RN of vulvar/perineal raw area with denuded mucosa. Recurrent episodes for many years now as per patient. 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 PPE External tender boggy vulva AP Vulvitis Philosophy And Religion Instructor consult Hold steroid Rx until patient seen by specialist.
[2024-11-07 06:11] LABS: Basophils # (auto) 0.01 K/uL (0.00-0.20); Basophils % (auto) 0.1 %; Eosinophils # (auto) 0.19 K/uL (0.00-0.50); Eosinophils % (auto) 2.7 %; Hematocrit (blood only) 29.4 % (37.0-47.0); Hemoglobin 9.5 g/dl (12.0-16.0); Immature Granulocytes # (auto) 0.02 K/uL (0.01-0.20); Immature Granulocytes % (auto) 0.3 %; Lymphocytes # (auto) 0.75 K/uL (1.20-3.40); Lymphocytes % (auto) 10.5 %; Mean Corpuscular Hemoglobin 28.5 pg (25.0-34.0); Mean Corpuscular Hgb Conc 32.3 g/dL (32.0-36.0); Mean Corpuscular Volume 88.3 fL (80.0-100.0); Mean Platelet Volume 10.5 fL (9.4-12.4); Monocytes # (auto) 0.94 K/uL (0.11-0.59); Monocytes % (auto) 13.1 %; Neutrophils # (auto) 5.25 K/uL (1.40-6.50); Neutrophils % (auto) 73.3 %; Platelet Count 98 K/uL (130-400); RDW Coefficient of Variation 15.3 % (11.5-14.5); RDW Standard Deviation 49.5 fL (36.4-46.3); Red Blood Count 3.33 M/uL (4.20-5.40); White Blood Count 7.16 K/ul (4.8-10.8)
[2024-11-07 06:26] LABS: BUN Creatinine Ratio 21.2 (10-20); Calcium 7.9 mg/dl (8.6-10.3); Creatinine Clr Calc Pharmacy 19.1 ml/min; Potassium 3.6 mmol/L (3.5-5.1)
[2024-11-07] MEDS: LANTUS PER UNIT CHARGE SQ SCH (09:27)
--- NOTE | 2024-11-07 09:35 | Hospitalist Progress Note ---
Date of Service November 07, 2024 Assessment & Plan (1) Acute GI bleeding: Plan: Again this is acute on chronic and likely because of underlying portal gastropathy plus minus variceal bleed, patient refused EGD as apparently in the past no pathology was found and she does not want to undergo another one. Recommendation by gastroenterology was reviewed, hemoglobin today is 9.5 down from 9.9 yesterday, continue to monitor CBC and transfuse as needed. Continue with Protonix IV push twice daily and the single IV line that she has will be dedicated for octreotide. The 72 hours of her octreotide infusion will complete tomorrow. (2) Diverticulitis of ascending colon: Plan: Will transition to oral Augmentin. Advance diet. (3) Elevated troponin: Plan: Troponin was initially 19 which went to 33, echocardiogram showed concentric LVH, ejection fraction of 65 to 70%, grade 1 diastolic LV dysfunction. this elevated troponin is probably nonischemic, this could be due to demand ischemia as well as decreased clearance because of underlying kidney dysfunction. May continue with telemetry. Patient was not complaining of any chest pain. (4) CKD (chronic kidney disease) stage 3, GFR 30-59 ml/min: Plan: Kidney function is at baseline around creatinine of 1.2, today is 1.6, this is still within normal and nonconcerning range although there could be an additional small EARL, will continue monitoring. (5) Hypothyroidism (acquired): Plan: Continue with Synthroid 100 mcg daily. (6) DM II (diabetes mellitus, type II), controlled: Plan: Glycemic control is adequate, continue with Lantus 10 units twice daily and sliding scale coverage. Plan Patient to complete 72 hours of octreotide, which is going to be tomorrow, continue with Protonix IV twice daily, transition to p.o. Augmentin, advance diet, reevaluate tomorrow and if the H&H are stable we might be able to disch arge her home. I explained to her that even after discharge her previous plan of periodical CBC monitoring and transfusion as needed as outpatient need to be continued. Admission and Anticipated Discharge Date Admission Date: November 05, 2024 Subjective Patient is an 89-year-old very pleasant female with history of diabetes mellitus type 2, hypothyroidism, CKD stage III, COPD, peripheral vascular disease status post stenting, coronary artery disease and severe left carotid artery disease and portal hypertensive gastropathy and liver cirrhosis due to [place] F[place] with esophageal varices, patient has had chronic ongoing anemia with intermittent dark stool, patient has been getting transfusion almost periodically as outpatient. Patient comes in with 1 event of coffee-ground emesis and also intermittent dark stool. Her hemoglobin and hematocrit was slightly lower than baseline. It seems that at baseline she is around 11.5. Patient was placed on octreotide, seen by gastroenterology who recommended this to be continued for 72 hours, patient has been refusing EGD because she underwent several of them and no culprit was found. Patient was seen and examined, she is clinically stable, she had issues with her IV line and so we are down to 1 functioning IV line. Will transition to p.o. antibiotic for her diverticulitis, will increase her diet. Her hemoglobin today is 9.5 down from 9.9. Overall there is no overt bleeding. Physical Exam Physical Exam: VITALS: Reviewed. HEENT: Appears pale nonicteric. ABD: Soft, NT/ND, NBS, no masses or organomegaly. MSK: No deformities, Normal gait. EXT: No clubbing, cyanosis, or edema. NEURO: Normal muscle strength and tone. No focal deficits. Results & Data Results & Data Vital Signs (Past 12 Hours) Vital Signs Temp Pulse Pulse Resp BP Pulse Ox O2 Del Method 11/07/24 08:00 56 L 11/07/24 08:00 Room Air 11/07/24 07:55 36.5 C 61 18 123/46 L 91 Room Air 11/07/24 03:00 36.8 C 56 L 17 116/52 L 90 Room Air 11/06/24 23:40 61 11/06/24 22:15 36.7 C 53 L 18 108/52 L 95 Room Air Laboratory Results Laboratory Results - last 24 hr 11/06/24 11/06/24 11/06/24 13:31 15:55 17:00 WBC RBC Hgb Hct MCV MCH MCHC RDW Std Deviation RDW Coeff of Daniela Plt Count MPV Immature Gran % (Auto) Neut % (Auto) Lymph % (Auto) [place] % (Auto) Eos % (Auto) Baso % (Auto) Neut # (Auto) Lymph # (Auto) [place] # (Auto) Eos # (Auto) Baso # (Auto) Immature Gran # (Auto) Sodium Potassium Chloride Carbon Dioxide Anion Gap BUN Creatinine Est Cr Clr Drug Dosing eGFR BUN/Creatinine Ratio Glucose POC Glucose 145 H 259 H Estimat Average Glucose Hemoglobin A1c Calcium Urine Color Yellow Urine Appearance Cloudy A Urine pH 7.5 Ur Specific [place] 1.024 Urine Protein 2+ H Urine Glucose (UA) 3+ H Urine Ketones Negative Urine Blood Negative Urine Nitrite Negative Urine Bilirubin Negative Urine Urobilinogen Negative Ur Leukocyte Esterase 2+ H Urine WBC (Auto) >50 H Urine RBC (Auto) 0-2 U Hyaline Cast (Auto) 3-5 H U Epithel Cells (Auto) 0-2 Urine Bacteria (Auto) None Seen 11/06/24 11/07/24 11/07/24 20:40 05:28 08:04 WBC 7.16 RBC 3.33 L Hgb 9.5 L Hct 29.4 L MCV 88.3 MCH 28.5 MCHC 32.3 RDW Std Deviation 49.5 H RDW Coeff of Daniela 15.3 H Plt Count 98 L MPV 10.5 Immature Gran % (Auto) 0.3 Neut % (Auto) 73.3 Lymph % (Auto) 10.5 [place] % (Auto) 13.1 Eos % (Auto) 2.7 Baso % (Auto) 0.1 Neut # (Auto) 5.25 Lymph # (Auto) 0.75 L [place] # (Auto) 0.94 H Eos # (Auto) 0.19 Baso # (Auto) 0.01 Immature Gran # (Auto) 0.02 Sodium 133 L Potassium 3.6 Chloride 105 Carbon Dioxide 21 Anion Gap 7 BUN 35 H Creatinine 1.65 H D Est Cr Clr Drug Dosing 19.1 eGFR 29.71 BUN/Creatinine Ratio 21.2 H Glucose 81 POC Glucose 333 H* 86 Estimat Average Glucose Pending Hemoglobin A1c Pending Calcium 7.9 L Urine Color Urine Appearance Urine pH Ur Specific [place] Urine Protein Urine Glucose (UA) Urine Ketones Urine Blood Urine Nitrite Urine Bilirubin Urine Urobilinogen Ur Leukocyte Esterase Urine WBC (Auto) Urine RBC (Auto) U Hyaline Cast (Auto) U Epithel Cells (Auto) Urine Bacteria (Auto) Medications Administered Current Inpatient Medications Acetaminophen (Acetaminophen 325 Mg Tab) 650 mg PO Q4H PRN PRN Reason: Pain or Fever Stop: 12/05/24 20:09 Last Admin: 11/07/24 01:08 Dose: 650 mg Atorvastatin Calcium (Atorvastatin 20 Mg Tab) 20 mg PO QPM AAKASH Stop: 12/06/24 20:59 Last Admin: 11/06/24 20:35 Dose: 20 mg Dextrose (Dextrose 50% 50 Ml Syringe) 25 - 50 ml IV UD PRN; Protocol PRN Reason: Hypoglycemia Protocol Stop: 12/05/24 21:24 Fluticasone Propionate (Fluticasone Propionate Na Spr 16 Gm Btl) 1 sprays NA DAILY PRN PRN Reason: Allergy Symptoms Stop: 12/05/24 21:13 Glucagon (Glucagon For Inj 1 Mg Vial) 1 mg SQ UD PRN; Protocol PRN Reason: Hypoglycemia Protocol Stop: 12/05/24 21:24 Glucose (Glucose 40% Gel 15 Gm Tube) 15 - 30 gm PO UD PRN; Protocol PRN Reason: Hypoglycemia Protocol Stop: 12/05/24 21:24 Glucose (Glucose 10 Tab/Tube) 4 - 8 tab PO UD PRN; Protocol PRN Reason: Hypoglycemia Protocol Stop: 12/05/24 21:24 Pantoprazole Sodium 40 mg/ (Dextrose) 100 mls @ 20 mls/hr IV Q5H [facility] Stop: 12/05/24 16:59 Last Admin: 11/07/24 07:32 Dose: 8 mg/hr, 20 mls/hr Octreotide Acetate 500 mcg/ (Sodium Chloride) 100.5 mls @ 10.05 mls/hr IV .Q10H [facility] Stop: 12/05/24 19:44 Last Admin: 11/07/24 01:56 Dose: 50 mcg/hr, 10.1 mls/hr Piperacillin Sod/Tazobactam Sod (Zosyn) 4.5 gm in 100 mls @ 25 mls/hr IV Q8H AAKASH; Protocol Stop: 11/16/24 01:59 Last Admin: 11/07/24 09:30 Dose: 25 mls/hr Promethazine HCl (Phenergan) 6.25 mg in 50.25 mls @ 201 mls/hr IV Q6H PRN PRN Reason: Nausea And Vomiting Stop: 12/05/24 20:09 Insulin Aspart (Insulin Aspart Per Unit Charge) 0 units SC ACHS [facility] Stop: 12/06/24 17:29 Last Admin: 11/07/24 09:27 Dose: Not Given Insulin Glargine (Lantus Per Unit Charge) 20 units SQ DAILY [facility] Stop: 12/07/24 08:59 Last Admin: 11/07/24 09:27 Dose: 20 units Lactobacillus Acidophilus (Advanced Probiotic 625 Mg Capsule) 1,250 mg PO DAILY [facility] Stop: 12/05/24 20:44 Last Admin: 11/07/24 09:28 Dose: 1,250 mg Levothyroxine Sodium (Levothyroxine Sodium 100 Mcg Tablet) 100 mcg PO DAILYBB [facility] Stop: 12/06/24 06:29 Last Admin: 11/07/24 06:09 Dose: 100 mcg Magnesium Hydroxide (Magnesium Hydroxide Susp 30 Ml Udc) 30 ml PO Q12H PRN PRN Reason: Constipation Stop: 12/05/24 20:09 Melatonin (Melatonin 3 Mg Tab) 9 mg PO HS [facility] Stop: 12/06/24 20:59 Last Admin: 11/06/24 20:34 Dose: 9 mg Miscellaneous (Carbohydrates For Hypoglycemia ) 15 - 30 gm PO UD PRN PRN Reason: Hypoglycemia Protocol Stop: 12/05/24 21:24 Miscellaneous Information (Pharmacy Glycemic Mgmt Consult) 1 each N/A UD PRN PRN Reason: Consult Stop: 12/05/24 21:24 Polyethylene Glycol (Polyethylene (Miralax) 17 Gm Pack) 17 gm PO DAILY PRN PRN Reason: Constipation Stop: 12/05/24 20:09 (4) CKD (chronic kidney disease) stage 3, GFR 30-59 ml/min Chronic kidney disease stage 3 subtype: stage 3b (GFR 30-44) Qualified Code(s): N18.32 - Chronic kidney disease, stage 3b (6) DM II (diabetes mellitus, type II), controlled 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
--- NOTE | 2024-11-07 09:54 | Pharmacy Report ---
Pharmacy Glycemic Short Note 2 - Date of Service November 07, 2024 - Glycemic Short BSG Results (Last 24 hours): 11/06/24 11/06/24 11/06/24 13:31 17:00 20:40 Glucose POC Glucose 145 H 259 H 333 H* 11/07/24 11/07/24 05:28 08:04 Glucose 81 POC Glucose 86 OUTPATIENT ANTIDIABETIC REGIMEN: * Tresiba 42 units SC AM * Novolog 6-8 units SC AC * Jardiance 25 mg PO AM HbA1c: * pending ASSESSMENT: 11/07/24 * Patient received 30 units of insulin yesterday, 20 units basal (10 units BID) - change basal to QAM dosing as patient takes all basal in the morning at home. * Blood sugars rising throughout the day and dropping overnight, will tighten CF/CR if this continues today, but for now just move basal insulin. * Patient on clear liquid diet that started yesterday, advancing, transitioning to PO antibiotics. * Patient to complete 72 hours of octreotide tomorrow, continuing with Protonix IV twice daily, if H&H are stable tomorrow, may discharge home. 11/06/24 * 89 yo F admitted on 11/05/24 secondary to acute GI bleed. Pharmacy has been consulted to assist with inpatient glycemic management. Patient is a Type 2 diabetic as an outpatient. Please refer to outpatient regimen and most recent HbA1c above. * Started on 10 units of basal BID overnight. Will continue for now. Was NPO but now is ordered a clear liquid diet. * Novolog started based on weight/stress of 2. Continue for now. * On octreotide and protonix drips for GI bleed. Zosyn for abx coverage. PLAN FOR INPATIENT GLYCEMIC CONTROL: * Hold outpatient oral diabetes medications * Basal insulin * Lantus 20 units SQ daily * Bolus insulin * NovoLog per scale ACHS or Q6hrs while NPO * Goal Range: Low 120 mg/dL - High 160 mg/dL - higher goal range d/t patient age * Correction Factor: 40 mg/dL/unit * Nutritional / Prandial insulin per carb ratio of 1 unit per 13 grams CHO consumed
[2024-11-07 11:06] LABS: Estimated Average Glucose 203 mg/dl; Hemoglobin A1C 8.7 % (4.5-5.6)
--- NOTE | 2024-11-07 11:27 | Communication Note ---
Date of Service: November 07, 2024 [facility] resuming care after call coverage from [facility]. Patient was evaluated by Dr. Dickinson for the issue of melena. She has a history of portal hypertensive gastropathy and is cared for by [facility]. She has declined endoscopic evaluation of any kind. H/H 9.5/29.4. At this point, would proceed with current conservative management plan with PPI and Octreotide, continue to monitor H/H, and notify [facility] if overtly bleeding or if she changes her mind regarding endoscopic evaluation.
--- NOTE | 2024-11-07 12:40 | Electrocardiogram Report ---
Test Reason : Blood Pressure : */* mmHG Vent. Rate : 65 BPM Atrial Rate : 65 BPM P-R Int : 192 ms QRS Dur : 100 ms QT Int : 424 ms P-R-T Axes : 69 -35 59 degrees QTcB Int : 440 ms Normal sinus rhythm Left axis deviation Abnormal ECG When compared with ECG of 05-Nov-2024 16:31, No significant change was found Confirmed by Evans Washington ([id number]) on 11/07/2024 12:40:33 PM Referred By: REFERRED SELF Confirmed By: Evans Washington
--- NOTE | 2024-11-07 13:39 | Consultation ---
Date of Consultation November 07, 2024 Assessment & Plan (1) Monilial vulvovaginitis: Lotrisone cream 3 times daily. Plan Lotrisone cream 3 times daily. History of Present Illness Requesting Physician: Brigido Shanks Reason for Consultation: Rash of the labia Attending Physician: Brigido Shanks MD History of Present Illness Patient is an 89-year-old 3 para 3. Her menses stopped in her 40s when she was diagnosed with Graves' disease. She has had no bleeding since. States the last time she had a pelvic exam was 8 years ago. Presently using [id number] hydrocortisone cream on both of her labia. Has some problem with urinary stress incontinence. Patient has multiple medical conditions. And is on multiple medications. Allergies Allergy/AdvReac Type Severity Reaction Status Date / Time vitamin E (d-alpha Allergy Intermediate ITCHY Verified 08/21/24 11:20 tocopherol) RASH, HIVES--PER [facility] 09/21/21 ENCOUNTER amoxicillin AdvReac Intermediate STOMACH Verified 08/21/24 11:20 UPSET--PER [facility] 09/21/21 ENCOUNTER baclofen AdvReac Intermediate Falls Verified 08/21/24 11:20 clavulanic acid AdvReac Intermediate STOMACH Verified 08/21/24 11:20 UPSET--PER [facility] 09/21/21 ENCOUNTER dulaglutide [[facility]] AdvReac Intermediate Vomiting Verified 08/21/24 11:20 ropinirole AdvReac Intermediate Falls Verified 08/21/24 11:20 tramadol AdvReac Intermediate Falls Verified 08/21/24 11:20 Home Medications Medication Instructions Recorded Confirmed Type aspirin 81 mg tablet,delayed 81 mg PO QAM 04/10/19 11/05/24 History release (Kendra Low Dose Aspirin) atorvastatin 20 mg tablet 20 mg PO QPM 04/10/19 11/05/24 History clopidogrel 75 mg tablet 75 mg PO QAM 04/10/19 11/05/24 History ferrous sulfate 325 mg (65 mg 325 mg PO 3XWK 01/01/22 11/05/24 History iron) tablet (FeroSul) gabapentin 300 mg capsule 300 mg PO HS PRN Pain 01/01/22 11/05/24 History insulin degludec 200 unit/mL (3 42 unit subcut QAM 01/01/22 11/05/24 History mL) subcutaneous pen (Tresiba FlexTouch U-200 insulin) empagliflozin 25 mg tablet 25 mg PO QAM 09/12/22 11/05/24 History (Jardiance) furosemide 40 mg tablet 20 mg PO QAM 09/12/22 11/05/24 History levothyroxine 100 mcg tablet 100 mcg PO QAM 09/12/22 11/05/24 History cranberry 500 mg capsule 500 mg PO HS 07/10/23 11/05/24 History fluticasone propionate 50 1 spray intranasal DAILY PRN 07/10/23 11/05/24 History mcg/actuation nasal Allergy Symptoms spray,suspension lidocaine 5 % topical patch 1 patch transdermal DIRECTED 07/10/23 11/05/24 History PRN Pain trolamine salicylate 10 % topical 1 applic topical DAILY PRN Pain 07/10/23 11/05/24 History cream (Aspercreme) hydroxyzine HCl 10 mg tablet 10 mg PO Q12 PRN Itching 09/02/23 11/05/24 History melatonin 5 mg chewable tablet 10 mg PO HS 09/02/23 11/05/24 History famotidine 40 mg tablet 40 mg PO DAILY 12/18/23 11/05/24 History Novolog FlexPen U-100 Insulin 6 - 8 unit subcut TID 11/05/24 11/05/24 History Patient History Medical History History of Graves' disease History of acute renal failure Disorder of acid-base balance CKD (chronic kidney disease) stage 3, GFR 30-59 ml/min DVT prophylaxis EARL (acute kidney injury) Metabolic acidosis Hypoglycemic episode in patient with diabetes mellitus Pneumonia Sinus bradycardia Hypertension PAF (paroxysmal atrial fibrillation) Atrial fibrillation with rapid ventricular response Cirrhosis Sepsis Acute metabolic encephalopathy Hypothyroidism PAD (peripheral artery disease) DM II (diabetes mellitus, type II), controlled Cholelithiasis Pancytopenia Cirrhosis Aneurysm of infrarenal abdominal aorta GERD (gastroesophageal reflux disease) Graves disease Chest pain CKD (chronic kidney disease), stage III COPD (chronic obstructive pulmonary disease) PAD (peripheral artery disease) HLD (hyperlipidemia) Diabetes mellitus, type II Anemia HTN (hypertension) Family History Other Diabetes Hypertension Social History Smoking Status: Former smoker Hx Alcohol Use: Yes Alcohol Intake Frequency: Monthly or Less Alcohol Intake Frequency Comment: Holidays Hx Substance Use: No Preferred Language: Tristanian Communication Ability: Effective It Security Project Manager Required: No Beliefs That Will Affect Care: None marital status: Current Living Situation: Alone Current Living Situation Comment: unable to determine How many Children do You have: 3 Feels Safe at Home: Yes Safety Concerns: Feels Safe At This Time Assistive Devices: Cane, Nebulizer and Walker Physical Exam Physical Exam: Patient is an 89-year-old white female in no acute distress. Is not totally oriented. Chest was clear trachea midline no cervical adenopathy. Heart had a regular rhythm. Abdomen soft and nontender. Visual inspection of the labia revealed redness of both labia majora covering approximately 40% of the surface area the skin is intact and not excoriated. Results & Data Vital Signs (Past 12 Hours) Vital Signs Temp Pulse Pulse Resp BP Pulse Ox O2 Del Method 11/07/24 11:21 92 Room Air 11/07/24 11:05 36.7 C 59 L 18 129/71 11/07/24 08:00 56 L 11/07/24 08:00 Room Air 11/07/24 07:55 36.5 C 61 18 123/46 L 91 Room Air 11/07/24 03:00 36.8 C 56 L 17 116/52 L 90 Room Air
--- NOTE | 2024-11-07 14:11 | Electrocardiogram Report ---
Test Reason : Blood Pressure : */* mmHG Vent. Rate : 55 BPM Atrial Rate : 55 BPM P-R Int : 190 ms QRS Dur : 102 ms QT Int : 448 ms P-R-T Axes : 68 -23 54 degrees QTcB Int : 428 ms Sinus bradycardia Low voltage QRS Cannot rule out Anterior infarct , age undetermined Abnormal ECG When compared with ECG of 06-Nov-2024 16:44, (unconfirmed) Minimal criteria for Anterior infarct are now Present Confirmed by Evans Washington ([id number]) on 11/07/2024 2:11:06 PM Referred By: REFERRED SELF Confirmed By: Evans Washington
[2024-11-07] MEDS: CLOTRIMAZOLE/BETAMETHASONE CR 15 GM TUBE EXT SCH (17:09)
[2024-11-07] MEDS: AMOXICILLIN/CLAVULANATE 500 MG TAB PO SCH (17:28)
[2024-11-07] MEDS: PANTOprazole 40 MG/10 ML SYR IV SCH (21:28)
[2024-11-08 08:24] LABS: Basophils # (auto) 0.02 K/uL (0.00-0.20); Basophils % (auto) 0.3 %; Eosinophils # (auto) 0.12 K/uL (0.00-0.50); Eosinophils % (auto) 1.7 %; Hematocrit (blood only) 32.4 % (37.0-47.0); Hemoglobin 10.3 g/dl (12.0-16.0); Immature Granulocytes # (auto) 0.03 K/uL (0.01-0.20); Immature Granulocytes % (auto) 0.4 %; Lymphocytes % (auto) 8.4 %; Mean Corpuscular Hemoglobin 28.3 pg (25.0-34.0); Mean Corpuscular Hgb Conc 31.8 g/dL (32.0-36.0); Mean Platelet Volume 10.2 fL (9.4-12.4); Monocytes # (auto) 0.75 K/uL (0.11-0.59); Monocytes % (auto) 10.5 %; Neutrophils # (auto) 5.61 K/uL (1.40-6.50); Neutrophils % (auto) 78.7 %; Platelet Count 100 K/uL (130-400); RDW Coefficient of Variation 15.3 % (11.5-14.5); Red Blood Count 3.64 M/uL (4.20-5.40); White Blood Count 7.13 K/ul (4.8-10.8)
--- NOTE | 2024-11-08 09:16 | Discharge Summary ---
Discharge Summary Date of Service November 08, 2024 Principal Dx & Hospital Course #1 = Principal Diagnosis (1) Acute GI bleeding: (2) Diverticulitis of ascending colon: (3) Elevated troponin: (4) CKD (chronic kidney disease) stage 3, GFR 30-59 ml/min: (5) Hypothyroidism (acquired): (6) DM II (diabetes mellitus, type II), controlled: Notes For Next Care Provider Medication Changes From Visit Lotrisone cream 3 times daily Augmentin 500/125 mg twice daily for 7 days Admission HPI Per Admitting Provider Sharifa Jenkins is an 89-year-old female with past medical history significant for insulin-requiring DM type II, hypothyroidism, hyperparathyroidism, CKD stage III, COPD, abdominal aortic aneurysm, peripheral vascular disease s/p multiple stents + Stacy is an 89-year-old very pleasant female with history of diabetes mellitus type 2, hypothyroidism, CKD stage III, COPD, peripheral vascular disease status post stenting, coronary artery disease and severe left carotid artery disease and portal hypertensive gastropathy and liver cirrhosis due to [place] with esophageal varices, patient has had chronic ongoing anemia with intermittent dark stool, patient has been getting transfusion almost periodically as outpatient. Patient comes in with 1 event of coffee-ground emesis and also intermittent dark stool. Her hemoglobin and hematocrit was slightly lower than baseline. It seems that at baseline she is around 11.5. Patient was placed on octreotide, seen by gastroenterology who recommended this to be continued for 72 hours, patient has been refusing EGD because she underwent several of them and no culprit was found. Patient continued to do well. Initially had some drop in her H&H however today her hemoglobin was 10.3. The patient was seen and examined today, case was discussed with her daughter over the phone. I am happy to recommend returning to outpatient follow-up and patient be discharged home. I do not think that anything else is needed considering that they never found any obvious bleeding site on previous endoscopies. Patient can follow-up with outpatient periodic CBC and in case of ongoing drop could be transfused as outpatient. Updated Medication List Medication Instructions Recorded Confirmed Type aspirin 81 mg tablet,delayed 81 mg PO QAM 04/10/19 11/05/24 History release (Kendra Low Dose Aspirin) atorvastatin 20 mg tablet 20 mg PO QPM 04/10/19 11/05/24 History clopidogrel 75 mg tablet 75 mg PO QAM 04/10/19 11/05/24 History ferrous sulfate 325 mg (65 mg 325 mg PO 3XWK 01/01/22 11/05/24 History iron) tablet (FeroSul) gabapentin 300 mg capsule 300 mg PO HS PRN Pain 01/01/22 11/05/24 History insulin degludec 200 unit/mL (3 42 unit subcut QAM 01/01/22 11/05/24 History mL) subcutaneous pen (Tresiba FlexTouch U-200 insulin) empagliflozin 25 mg tablet 25 mg PO QAM 09/12/22 11/05/24 History (Jardiance) furosemide 40 mg tablet 20 mg PO QAM 09/12/22 11/05/24 History levothyroxine 100 mcg tablet 100 mcg PO QAM 09/12/22 11/05/24 History cranberry 500 mg capsule 500 mg PO HS 07/10/23 11/05/24 History fluticasone propionate 50 1 spray intranasal DAILY PRN 07/10/23 11/05/24 History mcg/actuation nasal Allergy Symptoms spray,suspension lidocaine 5 % topical patch 1 patch transdermal DIRECTED 07/10/23 11/05/24 History PRN Pain trolamine salicylate 10 % topical 1 applic topical DAILY PRN Pain 07/10/23 11/05/24 History cream (Aspercreme) hydroxyzine HCl 10 mg tablet 10 mg PO Q12 PRN Itching 09/02/23 11/05/24 History melatonin 5 mg chewable tablet 10 mg PO HS 09/02/23 11/05/24 History famotidine 40 mg tablet 40 mg PO DAILY 12/18/23 11/05/24 History Novolog FlexPen U-100 Insulin 6 - 8 unit subcut TID 11/05/24 11/05/24 History amoxicillin 500 mg-potassium 1 tab PO BIDM 7 days #14 tabs 11/08/24 Rx clavulanate 125 mg tablet clotrimazole-betamethasone 1 1 applic EXT [id number] #45 grams 11/08/24 Rx %-0.05 % topical cream Hospital Stay Data Consultations 11/05/24 19:35 Consult Gastroenterology Routine 11/07/24 01:14 Consult Gynecology Routine Diagnostic Imagining Performed 11/05/24 16:40 CT Abd and Pelvis [CT abd pelvis wo con] Stat Pending Results Patient Have Any Pending Studies at Discharge: No Discharge Instructions Given to Patient (Per Discharging Provider) Patient continues to have the same plan of follow-up as outpatient which is periodic CBC checking and transfusion as outpatient as she seems to have an obscure GI blood loss which requires her to get transfused periodically. Total Time Total Time Spent Total Time Spent (In Minutes): More than 35-minute
[2024-11-08] MEDS ORDERED: methylPREDNISolone 10 mg/mL (For Ped Dose < 7mg) IV STA (12:27)
[2024-11-08 12:59] VITALS: BP 131/68; PULSE 61; RESP 18; TEMP 97.2; O2SAT 91
[2024-11-08] MEDS: methylPREDNISolone 40 MG in SYRINGE 0 ML IV STA (13:02)
[2024-11-08] MEDS: KETOROLAC TROMETHAMINE 15 MG/ML VIAL IV ONE (13:07)
== END 2024-11-08 16:18 | disposition home health service (06) | DRG 442 ==
LOC: ED 15:54 → SUATTDRO 19:32 → EDINP 19:32 → 4W 20:11

== ENCOUNTER 2025-09-16 18:10 | Inpatient (IN) ==
--- NOTE | 2025-09-16 18:36 | Emergency Department Note ---
Impression & Plan Rectal bleed, Anemia, Thrombocytopenia ED Provider Note NAME: JIMENEZ SIMMONS AGE: 89 SEX: F : 1935 ARRIVES VIA: Ambulance INFORMANT: Patient ED PROVIDER(S): Dex Tan DO CHIEF COMPLAINT: Bright red blood per rectum HPI: Patient is an 89-year-old female who presents to the ER for bright red blood per rectum. She notes that this started today around 3:30 PM while sitting on the toilet. Denies any chest pain or shortness of breath. Admits to some mild abdominal bloating. No dysuria, urgency, or frequency. She was sitting on the toilet and urinating noticed blood from her rectum when she has pain in her rectum. No vaginal bleeding. ADDITIONAL HISTORY OBTAINED: Per HPI Chronic Medical/Social Conditions Affecting Care: Per HPI PAST MEDICAL HISTORY:See Below PAST SURGICAL HISTORY:See Below FAMILY HISTORY:See Below SOCIAL HISTORY:See Below HOME MEDICATIONS:See Below ALLERGIES:See Below VITALS:See Below PHYSICAL EXAMINATION: GENERAL: Sitting up in bed, alert, well appearing, well nourished, no distress, non-toxic EYE EXAM: normal conjunctiva. PERRL and EOM's grossly intact. OROPHARYNX: mucous membranes are moist NECK: supple, no nuchal rigidity, no adenopathy, non-tender LUNGS: Clear to auscultation. Normal chest wall mechanics HEART: no murmurs, S1 normal and S2 normal ABDOMEN: abdomen soft, non-tender, normo-active bowel sounds, no masses, no rebound or guarding. BACK: Back is symmetrical on inspection and there is no deformity, no midline tenderness, no CVA tenderness. RECTAL: External hemorrhoids with clot hanging off of hemorrhoid at 3:00. Is acutely tender. No active bleeding at this time. Hemorrhoid was white. UPPER EXTREMITIES: upper extremities are grossly normal. LOWER EXTREMITIES: No pitting edema. NEURO EXAM: Normal sensorium, cranial nerves II-XII grossly intact, normal speech, no gross weakness of arms, no gross weakness of legs. MEDICAL DECISION MAKING: Patient is a 89-year-old female who presents ER for the above-stated complaint. IV was established and blood work is obtained. Labs show mild leukopenia at 4. Hemoglobin at 8 down from baseline of what appear to be 10. Platelets slightly low at 93. BMP with slightly elevated glucose at 350. LFTs bilirubin and lipase is unremarkable. UA was contaminated. No urinary symptoms. On exam she did have a bleeding hemorrhoid. Bleeding stopped. Reevaluated twice while here with no active bleeding. CT abdomen pelvis showed colitis. Updated bedside and discussed with the hospitalist for further evaluation management treatment. Consults/Care Managements Discussions: Per [facility] Triage Nursing notes reviewed. Limited review of prior medical records performed Vital Signs: reviewed and remarkable for no significant abnormalities Differential diagnosis: Differential diagnoses includes but is not limited to gastritis, peptic ulcer disease, GERD, gallbladder disease, pancreatitis, small bowel obstruction, appendicitis, diverticulitis, hernia, urinary tract infection, torsion, perforation, trauma, infectious. ER treatment provided: See below Diagnostics interpreted by me include EKG and cardiac monitoring as listed below: -Cardiac Monitoring: An order was placed for continuous cardiac monitoring. The monitor shows a rate of 70 with sinus rhythm. -ECG: Sinus tachycardia rate 77 Left axis No PVCs QTc 466 -Laboratory studies:Interpreted by me as stated above in MDM and shown below. Imaging studies: Xrays: As interpreted by me: Portable AP upright 1 view of the chest shows no focal trait CTs show: CT abdomen pelvis as described above Procedures:none Critical Care: None Past Med/Surg History Problem List (Updated 12/09/24 @ 00:06 by Background Daemon) Thrombocytopenia (Acute) Anemia (Acute) Perforation of right tympanic membrane Monilial vulvovaginitis DM II (diabetes mellitus, type II), controlled Hypothyroidism (acquired) CKD (chronic kidney disease) stage 3, GFR 30-59 ml/min Diverticulitis of ascending colon Acute GI bleeding (Acute) Abdominal pain, lower (Acute) Diverticulitis (Acute) Sensorineural hearing loss (SNHL) of left ear with restricted hearing of right ear 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 with restricted hearing of left ear Ear drum perforation History of Clostridioides difficile colitis Antiplatelet or antithrombotic long-term use (Acute) Rectal bleed (Acute) Shortness of breath (Acute) Acute exacerbation of CHF (congestive heart failure) (Acute) Non-ST elevation MN (NSTEMI) (Acute) Anemia requiring transfusions (Acute) Pulmonary edema (Acute) Compression fracture of body of thoracic vertebra Hypothyroid Type 2 diabetes mellitus Fall (Acute) Cholelithiasis (Acute) Cirrhosis (Chronic) Thrombocytopenia (Chronic) Abdominal pain, RUQ (Acute) Epigastric abdominal pain (Acute) Back pain (Acute) Encounter for pre-operative examination COPD (chronic obstructive pulmonary disease) Pneumonia (Acute) Aneurysm of infrarenal abdominal aorta GI bleed Total bilirubin, elevated Cholelithiasis Thickened endometrium Anemia (Acute) Emphysema History of intravascular stent placement Reported Left subclavian, superior mesenteric artery, L iliac, L fempop bypass - Dr Lupe Dorman History of appendectomy Medical History (Updated 09/17/25 @ 00:00 by Dex Tan DO) Bilateral high frequency sensorineural hearing loss History of Graves' disease History of acute renal failure Disorder of acid-base balance DVT prophylaxis EARL (acute kidney injury) Metabolic acidosis Hypoglycemic episode in patient with diabetes mellitus Pneumonia Sinus bradycardia Hypertension PAF (paroxysmal atrial fibrillation) Atrial fibrillation with rapid ventricular response Cirrhosis Sepsis Acute metabolic encephalopathy Hypothyroidism PAD (peripheral artery disease) Cholelithiasis Pancytopenia Cirrhosis Aneurysm of infrarenal abdominal aorta GERD (gastroesophageal reflux disease) Graves disease Chest pain CKD (chronic kidney disease), stage III COPD (chronic obstructive pulmonary disease) PAD (peripheral artery disease) HLD (hyperlipidemia) Diabetes mellitus, type II Anemia HTN (hypertension) Family History Other Diabetes Hypertension Social History Smoking Status: Former smoker Hx Alcohol Use: Yes Alcohol Intake Frequency: Monthly or Less Alcohol Intake Frequency Comment: Holidays Hx Substance Use: No Preferred Language: Bhutanese Communication Ability: Effective 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 Beliefs That Will Affect Care: None marital status: Current Living Situation: Alone Current Living Situation Comment: unable to determine How many Children do You have: 3 Feels Safe at Home: Yes Assistive Devices: Cane, Nebulizer and Walker Allergies Allergies Allergy/AdvReac Type Severity Reaction Status Date / Time camphor Allergy Intermediate Itching Verified 09/16/25 18:42 vitamin E (d-alpha Allergy Intermediate ITCHY Verified 09/16/25 18:42 tocopherol) RASH, HIVES albuterol [From [facility] HFA] AdvReac Intermediate SORE MOUTH Verified 09/16/25 18:42 & TONGUE amoxicillin AdvReac Intermediate CAUSED Verified 09/16/25 18:42 C-DIFF baclofen AdvReac Intermediate Falls Verified 09/16/25 18:42 clavulanic acid AdvReac Intermediate CAUSED Verified 09/16/25 18:42 C-DIFF dulaglutide [From [facility]] AdvReac Intermediate NAUSEA/VOMI Verified 09/16/25 18:42 TING ropinirole AdvReac Intermediate Falls Verified 09/16/25 18:42 tramadol AdvReac Intermediate Falls Verified 09/16/25 18:42 [id number] Reductase AdvReac Unknown TOLERATES Verified 09/16/25 18:42 Inhibitor CRESTOR ONLY Home Meds Home Medications Medication Instructions Recorded Confirmed aspirin 81 mg tablet,delayed 81 mg PO QAM 04/10/19 09/16/25 release (Kendra Low Dose Aspirin) atorvastatin 20 mg tablet 20 mg PO QAM 04/10/19 09/16/25 clopidogrel 75 mg tablet 75 mg PO QAM 04/10/19 09/16/25 ferrous sulfate 325 mg (65 mg 325 mg PO 3XWK 01/01/22 09/16/25 iron) tablet (FeroSul) gabapentin 300 mg capsule 300 mg PO HS Pain 01/01/22 09/16/25 insulin degludec 200 unit/mL (3 44 unit subcut QAM 01/01/22 09/16/25 mL) subcutaneous pen (Tresiba FlexTouch U-200 insulin) empagliflozin 25 mg tablet 25 mg PO QAM 09/12/22 09/16/25 (Jardiance) furosemide 40 mg tablet 20 mg PO QAM 09/12/22 09/16/25 fluticasone propionate 50 1 spray intranasal BID 07/10/23 09/16/25 mcg/actuation nasal spray,suspension hydroxyzine HCl 10 mg tablet 10 mg PO Q12 PRN Itching 09/02/23 09/16/25 melatonin 5 mg chewable tablet 10 mg PO HS PRN Sleep 09/02/23 09/16/25 famotidine 40 mg tablet 40 mg PO DAILY 12/18/23 09/16/25 Lactobacillus acidophilus 1 tab PO DAILY 09/16/25 09/16/25 (Acidophilus chewable tablet) acetaminophen 500 mg tablet 1,000 mg PO BID PRN Pain 09/16/25 09/16/25 (Tylenol Extra Strength) albuterol sulfate 90 mcg/actuation 2 puff inhalation Q4H PRN 09/16/25 09/16/25 aerosol inhaler Shortness Of Breath Or Wheezing cholecalciferol (vitamin D3) 1,250 1,250 mcg PO WK 09/16/25 09/16/25 mcg (50,000 unit) capsule cranberry extract 500 mg capsule 500 mg PO HS 09/16/25 09/16/25 (Cranberry Concentrate) guaifenesin 100 mg/5 mL oral liquid 400 mg PO TID PRN Cough 09/16/25 09/16/25 insulin aspart U-100 100 unit/mL 6 - 8 unit subcut TIDM 09/16/25 09/16/25 (3 mL) subcutaneous pen (Novolog FlexPen U-100 Insulin aspart) levothyroxine 88 mcg tablet 88 mcg PO DAILYBB 09/16/25 09/16/25 nystatin 100,000 unit/gram topical 1 applic topical BID PRN Skin 09/16/25 09/16/25 cream Irritation nystatin 100,000 unit/mL oral 5 ml PO QID 09/16/25 09/16/25 suspension pantoprazole 20 mg tablet,delayed 20 mg PO DAILYBB 09/16/25 09/16/25 release spironolactone 50 mg tablet 50 mg PO BID 09/16/25 09/16/25 Results & Data (ED) Vital Signs Vital Signs - 24 hr 09/16/25 18:22 09/16/25 18:24 09/16/25 19:21 Temperature 36.9 C Temperature Source Oral Pulse Rate 81 76 81 Pulse Rate from SpO2 Sensor 81 Respiratory Rate 20 20 Blood Pressure 129/63 159/54 H Blood Pressure Mean 85 89 Pulse Oximetry 95 95 Oxygen Delivery Method Room Air Room Air Sepsis Recent Fever Within 48 Hours No Sepsis New/Unexplained Change in Mental Status N/A Sepsis Action Taken by Nursing No Action Required 09/16/25 20:00 Temperature Temperature Source Pulse Rate 83 Pulse Rate from SpO2 Sensor 83 Respiratory Rate 24 Blood Pressure 166/75 H Blood Pressure Mean 105 Pulse Oximetry 94 Oxygen Delivery Method Room Air Sepsis Recent Fever Within 48 Hours Sepsis New/Unexplained Change in Mental Status Sepsis Action Taken by Nursing Laboratory Data 09/16/25 23:07 09/16/25 18:25 Lab Results 09/16/25 09/16/25 09/16/25 Range/Units 18:25 18:29 19:08 WBC 4.99 (4.8-10.8) K/ul RBC 2.93 L (4.20-5.40) M/uL Hgb 8.1 L (12.0-16.0) g/dL POC Hgb 8.8 L (12.0-16.0) g/dl Hct 26.4 L (37.0-47.0) % POC Hct 26 L (37-47) % MCV 90.1 (80.0-100.0) fL MCH 27.6 (25.0-34.0) pg MCHC 30.7 L (32.0-36.0) g/dL RDW Std Deviation 55.2 H (36.4-46.3) fL RDW Coeff of Daniela 17.0 H (11.5-14.5) % Plt Count 93 L (130-400) K/uL MPV 11.1 (9.4-12.4) fL Immature Gran % (Auto) 0.6 % Neut % (Auto) 63.2 % Lymph % (Auto) 20.4 % Gillespie % (Auto) 11.0 % Eos % (Auto) 4.2 % Baso % (Auto) 0.6 % Neut # (Auto) 3.15 (1.40-6.50) K/uL Lymph # (Auto) 1.02 L (1.20-3.40) K/uL Gillespie # (Auto) 0.55 (0.11-0.59) K/uL Eos # (Auto) 0.21 (0.00-0.50) K/uL Baso # (Auto) 0.03 (0.00-0.20) K/uL Immature Gran # (Auto) 0.03 (0.01-0.20) K/uL POC Sodium 139 (135-144) mmol/L Sodium 138 (136-145) mmol/L POC Potassium 4.9 (3.3-5.0) mmol/L Potassium 4.9 (3.5-5.1) mmol/L POC Chloride 106 (101-112) mmol/L Chloride 107 (98-107) mmol/L Carbon Dioxide 25 (21-32) mmol/L POC Total CO2 22 L (24-31) mmol/L Anion Gap 6 (3-11) POC Anion Gap 17.0 (16-25) mmol/L POC BUN 18 (7-18) mg/dl BUN 18 (6-23) mg/dl Creatinine 1.24 H (0.6-1.2) mg/dl POC Creatinine 1.4 H (0.6-1.3) mg/dl Est Cr Clr Drug Dosing 27.5 ml/min eGFR 41.86 BUN/Creatinine Ratio 14.5 (10-20) Glucose 355 H* (70-99(Fasting)) mg/dl POC Glucose (other) 328 H (70-99) mg/dl Calcium 9.3 (8.6-10.3) mg/dl POC Ioniz Calcium Dimple 1.25 (1.12-1.32) mmol/l Magnesium 2.1 (1.7-2.4) mg/dl Total Bilirubin 1.2 H (0.2-1.0) mg/dl AST 28 (13-39) U/L ALT 20 (7-52) U/L Alkaline Phosphatase 105 H (34-104) U/L Total Protein 6.2 (6.0-8.3) gm/dl Albumin 3.3 L (3.4-5.0) gm/dl Globulin 2.9 (2.5-4.0) gm/dl Albumin/Globulin Ratio 1.1 (0.9-2) Lipase 57 (11-82) U/L Urine Color [place] Urine Appearance Cloudy A (Clear) Urine pH 6.0 (4.5-7.5) Ur Specific Kathleen 1.019 (1.000-1.030) Urine Protein 2+ H (Negative) Urine Glucose (UA) 3+ H (Negative) Urine Ketones Negative (Negative) Urine Blood 3+ H (Negative) Urine Nitrite Positive A (Negative) Urine Bilirubin Negative (Negative) Urine Urobilinogen Negative (Negative) Ur Leukocyte Esterase 2+ H (Negative) Urine WBC (Auto) >50 H (0-5) /hpf Urine RBC (Auto) >20 H (0-2) /hpf U Hyaline Cast (Auto) 0-2 (0-2) /lpf U Epithel Cells (Auto) 6-10 H (0-2) /hpf Urine Bacteria (Auto) 4+ H (None Seen) Urine Comment Administered Medications Sodium Chloride (Nss) 1,000 mls @ 50 mls/hr IV .Q20H ONE Stop: 09/17/25 16:50 Last Admin: 09/16/25 21:20 Dose: 50 mls/hr Documented By: RACHEL Discontinued Medications Metronidazole (Flagyl) 500 mg in 100 mls @ 100 mls/hr IV ONE ONE; Protocol Stop: 09/16/25 22:14 Last Infusion: 09/16/25 23:47 Dose: Infused Documented By: Admin: 09/16/25 21:22 Dose: 100 mls/hr Documented By: RACHEL Ceftriaxone Sodium (Rocephin) 2,000 mg in 50 mls @ 100 mls/hr IV ONE ONE Stop: 09/16/25 21:44 Last Infusion: 09/16/25 23:47 Dose: Infused Documented By: Admin: 09/16/25 21:24 Dose: 100 mls/hr Documented By: RACHEL Ioversol (Optiray 320 100ml) 93 ml IV ONCE ONE Stop: 09/16/25 19:14 Last Admin: 09/16/25 19:13 Dose: 93 ml Documented By: HUSAM Imaging Data Radiologist's Impression: Abdomen/Pelvis CT 09/16/25 18:34 EXAMINATION: Abdomen and pelvis CT with CLINICAL HISTORY: GI bleed PRIORS: 11/05/2024 TECHNIQUE: Contiguous axial images were obtained through the abdomen and pelvis with the use of intravenous contrast. Sagittal and coronal reformations are supplied. FINDINGS: Images are acquired in venous phase. Hypoventilatory changes at the right lung base, unchanged. Hepatic cirrhosis is noted with small appearance of the liver and nodular border, progressed. Moderate perihepatic ascites is present. Multiple layering gallstones noted, unchanged. Mild to moderate abdominal ascites and fluid in the pelvis. The stomach is under distended. Portal vein enhances normally. Pancreas is atrophic. Spleen is not enlarged. Paraesophageal varices noted. Advanced atherosclerotic disease of the abdominal aorta and takeoff of the great vessels. A infrarenal abdominal aortic aneurysm is identified, image 39, series 2 measuring approximately 3.6 x 3.9 cm, unchanged when compared to 11/05/2024. No surrounding inflammatory change. Atrophic uterus is present not further characterized. Urinary bladder distends normally. Kidneys are atrophic. Left renal low-attenuation lesion noted, possibly cyst. Allowing for venous phase, severe diverticulosis of the descending and sigmoid colon present. No dilated or fluid-filled loops of bowel. Mild cecal and ascending colon bowel wall thickening and pericolonic inflammatory change, extending to the proximal transverse colon, images 63 through 70 series 300 and images 33?40, axial series 2. Mild anasarca noted. No adenopathy or extraluminal gas. No extravasation of contrast, allowing for venous phase. Moderate osseous demineralization noted. Moderate degenerative change throughout the spine. IMPRESSION: 1. Mild ascending colon wall thickening and pericolonic inflammatory change favoring Colitis. Please correlate clinically. 2. Hepatic cirrhosis, progressed, with moderate ascites, and abdominal varices. 3. Advanced atherosclerotic disease of the abdominal aorta and mesenteric vessels with infrarenal abdominal aortic aneurysm measuring 3.6-3.9 cm, unchanged. 4. Severe diverticulosis of the descending and sigmoid colon with no pericolonic inflammatory change. No bowel obstruction. ACT 112: Positive. There are findings on this examination that require communication between the performing entity and the patient following Patient Test Result Information Act ([place] ACT 112) guidelines. Electronically signed by Liz Mcghee 09-16-2025 8:53 PM Discharge Plan Visit Data Chief Complaint: Rectal Bleed Stated Complaint: rectal bleeding ED Provider: Dex Tan Discharge Problem: Rectal bleed, Anemia, Thrombocytopenia Patient Disposition: Admitted As Inpatient Condition: Fair Discharge Instructions Interventions: ED Discharge Assessment Last Done: 09/16/25 22:28 Discharge Problem: Anemia Qualifiers: Anemia type: unspecified type Qualified Code(s): D64.9 - Anemia, unspecified
[2025-09-16 18:47] LABS: Hematocrit (blood only) 26.4 % (37.0-47.0); Hemoglobin 8.1 g/dL (12.0-16.0); Mean Corpuscular Hemoglobin 27.6 pg (25.0-34.0); Mean Corpuscular Volume 90.1 fL (80.0-100.0); Red Blood Count 2.93 M/uL (4.20-5.40); White Blood Count 4.99 K/ul (4.8-10.8)
[2025-09-16 18:48] LABS: Immature Granulocytes # (auto) 0.03 K/uL (0.01-0.20); Immature Granulocytes % (auto) 0.6 %; Platelet Count 93 K/uL (130-400); RDW Standard Deviation 55.2 fL (36.4-46.3)
[2025-09-16 19:10] LABS: Alanine Aminotransferase 20.0 U/L (7-52); Albumin Globulin Ratio 1.1 (0.9-2); Albumin Level 3.3 gm/dl (3.4-5.0); Alkaline Phosphatase 105.0 U/L (34-104); Anion Gap 6.0 (3-11); Bilirubin,Total 1.2 mg/dl (0.2-1.0); Blood Urea Nitrogen 18.0 mg/dl (6-23); Calcium 9.3 mg/dl (8.6-10.3); Carbon Dioxide 25.0 mmol/L (21-32); Chloride 107.0 mmol/L (98-107); Creatinine Clr Calc Pharmacy 27.5 ml/min; Globulin 2.9 gm/dl (2.5-4.0); Glucose 355.0 mg/dl (70-99(Fasting)); Lipase 57.0 U/L (11-82); Potassium 4.9 mmol/L (3.5-5.1); Sodium 138.0 mmol/L (136-145); Total Protein 6.2 gm/dl (6.0-8.3)
[2025-09-16] MEDS: OPTIRAY 320 100ml IV ONE (19:13)
[2025-09-16 19:40] LABS: Appearance Urine Cloudy (Clear); Bacteria Urine Automated 4+ (None Seen); Cast Urine Automated 0-2 /lpf (0-2); Glucose Urine UA 3+ (Negative); RBC Urine Automated >20 /hpf (0-2); WBC Urine Automated >50 /hpf (0-5)
--- NOTE | 2025-09-16 20:53 | CT Scan Report ---
EXAMINATION: Abdomen and pelvis CT with CLINICAL HISTORY: GI bleed PRIORS: 11/05/2024 TECHNIQUE: Contiguous axial images were obtained through the abdomen and pelvis with the use of intravenous contrast. Sagittal and coronal reformations are supplied. FINDINGS: Images are acquired in venous phase. Hypoventilatory changes at the right lung base, unchanged. Hepatic cirrhosis is noted with small appearance of the liver and nodular border, progressed. Moderate perihepatic ascites is present. Multiple layering gallstones noted, unchanged. Mild to moderate abdominal ascites and fluid in the pelvis. The stomach is under distended. Portal vein enhances normally. Pancreas is atrophic. Spleen is not enlarged. Paraesophageal varices noted. Advanced atherosclerotic disease of the abdominal aorta and takeoff of the great vessels. A infrarenal abdominal aortic aneurysm is identified, image 39, series 2 measuring approximately 3.6 x 3.9 cm, unchanged when compared to 11/05/2024. No surrounding inflammatory change. Atrophic uterus is present not further characterized. Urinary bladder distends normally. Kidneys are atrophic. Left renal low-attenuation lesion noted, possibly cyst. Allowing for venous phase, severe diverticulosis of the descending and sigmoid colon present. No dilated or fluid-filled loops of bowel. Mild cecal and ascending colon bowel wall thickening and pericolonic inflammatory change, extending to the proximal transverse colon, images 63 through 70 series 300 and images 33?40, axial series 2. Mild anasarca noted. No adenopathy or extraluminal gas. No extravasation of contrast, allowing for venous phase. Moderate osseous demineralization noted. Moderate degenerative change throughout the spine. IMPRESSION: 1. Mild ascending colon wall thickening and pericolonic inflammatory change favoring Colitis. Please correlate clinically. 2. Hepatic cirrhosis, progressed, with moderate ascites, and abdominal varices. 3. Advanced atherosclerotic disease of the abdominal aorta and mesenteric vessels with infrarenal abdominal aortic aneurysm measuring 3.6-3.9 cm, unchanged. 4. Severe diverticulosis of the descending and sigmoid colon with no pericolonic inflammatory change. No bowel obstruction. ACT 112: Positive. There are findings on this examination that require communication between the performing entity and the patient following Patient Test Result Information Act ([place] ACT 112) guidelines. Electronically signed by Liz Mcghee 09-16-2025 8:53 PM
--- NOTE | 2025-09-16 20:59 | History & Physical Report ---
Date of Service September 16, 2025 Assessment & Plan (1) Abdominal pain: Plan: Assessment and plan below following discussion of case with ED provider and reviewing patient history/pertinent normal/abnormal diagnostic test results. Abdominal pain Multifactorial 1. Hemorrhagic colitis Rule out recurrent C. difficile Patient currently hemodynamically stable. 2. Complicated UTI, no sepsis for now 3. Painful ascites possible SBP history MASLD with cirrhosis Hypertensive urgency secondary to illness, patient not on maintenance medications other than diuretic Rx PAF, patient NSR ARF on CKD secondary to illness hx CAD status post stent/PVD status post surgery, on Plavix COPD, chronic cough symptoms DM 2 insulin requiring, suboptimal control as of recent hemoglobin A1c 8.7 last July 2025 Graves' disease status post ablation/hypothyroidism, euthyroid as of recent outpatient TSH from 2 months ago chronic anemia, hemoglobin at baseline chronic thrombocytopenia, secondary to liver disease past tobacco abuse Admit to med/tele Clear liquid diet for now Hold antiplatelet Rx Ceftriaxone, Flagyl for now Follow final urine CS, stool C. difficile Albumin in addition to ceftriaxone for possible SBP, diagnostic/therapeutic paracentesis in a.m. GI consult re: ascites, decompensated cirrhosis Follow H&H, transfuse PRBC to maintain hemoglobin of at least 8 Amlodipine if with persistent BP elevation Monitor creatinine response to IVF, hold home diuretic until creatinine back to baseline (Patient intolerant to spironolactone Rx prescribed by aix architect citing nausea vomiting symptoms.) Basal bolus insulin adjusted for clear liquid diet, ISS BG goal 110-140, carb con coverage DVT prophylaxis. SCDs re: GI bleed DNR as per patient prior wishes. Patient daughter requesting updates providers. Shahrzad Melany Sterling,, contact #[phone]. Text document was generated using [employer] voice recognition software. It may contain grammatical or spelling errors. Kindly contact undersigned for clarification of any documentation item in qu estion. History of Present Illness Chief Complaint: Bloody bowel movement Primary Care Provider: Kaia Almendarez MD History obtained from patient, family, and records. Medical history significant for CAD status post stent/PVD status post surgery, PAF, hypertension, COPD, MASLD cirrhosis, recurrent C. difficile, DM 2 insulin requiring, Graves' disease status post ablation, hypothyroidism, CRI (baseline creatinine 1.2), chronic anemia (baseline hemoglobin 8-9), chronic thrombocytopenia, RLS, past tobacco abuse. Last confinement November 2024 for UGIB. Patient refused endoscopy. This afternoon, patient noted bloody bowel movement associated with achy lower abdominal pain. Increased abdominal distention. Denies hematuria symptoms. No chest pain. 1 episode of bilious emesis last night. Chronic cough symptoms. Patient more short of breath than usual. Dizziness described as lightheadedness. Denies headache symptoms. No recent antibiotics, out-of-town travel, or known sick contacts. Highest SBP of 180s documented at the ER. Medical History as above 2022 EGD showed portal hypertensive gastropathy, esophageal varices No recent colonoscopies on file. 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 Allergies Allergy/AdvReac Type Severity Reaction Status Date / Time camphor Allergy Intermediate Itching Verified 09/16/25 18:42 vitamin E (d-alpha Allergy Intermediate ITCHY Verified 09/16/25 18:42 tocopherol) RASH, HIVES albuterol [From ProAir HFA] AdvReac Intermediate SORE MOUTH Verified 09/16/25 18:42 & TONGUE amoxicillin AdvReac Intermediate CAUSED Verified 09/16/25 18:42 C-DIFF baclofen AdvReac Intermediate Falls Verified 09/16/25 18:42 clavulanic acid AdvReac Intermediate CAUSED Verified 09/16/25 18:42 C-DIFF dulaglutide [From Trulicity] AdvReac Intermediate NAUSEA/VOMI Verified 09/16/25 18:42 TING ropinirole AdvReac Intermediate Falls Verified 09/16/25 18:42 tramadol AdvReac Intermediate Falls Verified 09/16/25 18:42 [id number] Reductase AdvReac Unknown TOLERATES Verified 09/16/25 18:42 Inhibitor CRESTOR ONLY Home Medications Medication Instructions Recorded Confirmed Type aspirin 81 mg tablet,delayed 81 mg PO QAM 04/10/19 09/16/25 History release (Kendra Low Dose Aspirin) atorvastatin 20 mg tablet 20 mg PO QAM 04/10/19 09/16/25 History clopidogrel 75 mg tablet 75 mg PO QAM 04/10/19 09/16/25 History ferrous sulfate 325 mg (65 mg 325 mg PO 3XWK 01/01/22 09/16/25 History iron) tablet (FeroSul) gabapentin 300 mg capsule 300 mg PO HS Pain 01/01/22 09/16/25 History insulin degludec 200 unit/mL (3 44 unit subcut QAM 01/01/22 09/16/25 History mL) subcutaneous pen (Tresiba FlexTouch U-200 insulin) empagliflozin 25 mg tablet 25 mg PO QAM 09/12/22 09/16/25 History (Jardiance) furosemide 40 mg tablet 20 mg PO QAM 09/12/22 09/16/25 History fluticasone propionate 50 1 spray intranasal BID 07/10/23 09/16/25 History mcg/actuation nasal spray,suspension hydroxyzine HCl 10 mg tablet 10 mg PO Q12 PRN Itching 09/02/23 09/16/25 History melatonin 5 mg chewable tablet 10 mg PO HS PRN Sleep 09/02/23 09/16/25 History famotidine 40 mg tablet 40 mg PO DAILY 12/18/23 09/16/25 History Lactobacillus acidophilus 1 tab PO DAILY 09/16/25 09/16/25 History (Acidophilus chewable tablet) acetaminophen 500 mg tablet 1,000 mg PO BID PRN Pain 09/16/25 09/16/25 History (Tylenol Extra Strength) albuterol sulfate 90 mcg/actuation 2 puff inhalation Q4H PRN 09/16/25 09/16/25 History aerosol inhaler Shortness Of Breath Or Wheezing cholecalciferol (vitamin D3) 1,250 1,250 mcg PO WK 09/16/25 09/16/25 History mcg (50,000 unit) capsule cranberry extract 500 mg capsule 500 mg PO HS 09/16/25 09/16/25 History (Cranberry Concentrate) guaifenesin 100 mg/5 mL oral liquid 400 mg PO TID PRN Cough 09/16/25 09/16/25 History insulin aspart U-100 100 unit/mL 6 - 8 unit subcut TIDM 09/16/25 09/16/25 History (3 mL) subcutaneous pen (Novolog FlexPen U-100 Insulin aspart) levothyroxine 88 mcg tablet 88 mcg PO DAILYBB 09/16/25 09/16/25 History nystatin 100,000 unit/gram topical 1 applic topical BID PRN Skin 09/16/25 09/16/25 History cream Irritation nystatin 100,000 unit/mL oral 5 ml PO QID 09/16/25 09/16/25 History suspension pantoprazole 20 mg tablet,delayed 20 mg PO DAILYBB 09/16/25 09/16/25 History release spironolactone 50 mg tablet 50 mg PO BID 09/16/25 09/16/25 History Past Med/Surg History Problem List (Updated 12/09/24 @ 00:06 by Mickey Soto) Colitis Thrombocytopenia (Acute) Anemia (Acute) Perforation of right tympanic membrane Monilial vulvovaginitis DM II (diabetes mellitus, type II), controlled Hypothyroidism (acquired) CKD (chronic kidney disease) stage 3, GFR 30-59 ml/min Diverticulitis of ascending colon Acute GI bleeding (Acute) Abdominal pain, lower (Acute) Diverticulitis (Acute) Sensorineural hearing loss (SNHL) of left ear with restricted hearing of right ear 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 with restricted hearing of left ear Ear drum perforation History of Clostridioides difficile colitis Antiplatelet or antithrombotic long-term use (Acute) Rectal bleed (Acute) Shortness of breath (Acute) Acute exacerbation of CHF (congestive heart failure) (Acute) Non-ST elevation [place] (NSTEMI) (Acute) Anemia requiring transfusions (Acute) Pulmonary edema (Acute) Compression fracture of body of thoracic vertebra Hypothyroid Type 2 diabetes mellitus Fall (Acute) Cholelithiasis (Acute) Cirrhosis (Chronic) Thrombocytopenia (Chronic) Abdominal pain, RUQ (Acute) Epigastric abdominal pain (Acute) Back pain (Acute) Encounter for pre-operative examination COPD (chronic obstructive pulmonary disease) Pneumonia (Acute) Aneurysm of infrarenal abdominal aorta GI bleed Total bilirubin, elevated Cholelithiasis Thickened endometrium Anemia (Acute) Emphysema History of intravascular stent placement Reported Left subclavian, superior mesenteric artery, L iliac, L fempop bypass - [facility] Andrade [facility] History of appendectomy Medical History (Updated 09/17/25 @ 03:58 by Donta Schuler MD) Bilateral high frequency sensorineural hearing loss History of Graves' disease History of acute renal failure Disorder of acid-base balance DVT prophylaxis EARL (acute kidney injury) Metabolic acidosis Hypoglycemic episode in patient with diabetes mellitus Pneumonia Sinus bradycardia Hypertension PAF (paroxysmal atrial fibrillation) Atrial fibrillation with rapid ventricular response Cirrhosis Sepsis Acute metabolic encephalopathy Hypothyroidism PAD (peripheral artery disease) Cholelithiasis Pancytopenia Cirrhosis Aneurysm of infrarenal abdominal aorta GERD (gastroesophageal reflux disease) Graves disease Chest pain CKD (chronic kidney disease), stage III COPD (chronic obstructive pulmonary disease) PAD (peripheral artery disease) HLD (hyperlipidemia) Diabetes mellitus, type II Anemia HTN (hypertension) Family History Other Diabetes Hypertension Social History Smoking Status: Former smoker Tobacco Type: Cigarettes Second Hand Exposure: No; Do You Dip or Chew Tobacco: No; Tobacco Cessation Education Requested by Patient: No Hx Alcohol Use: Yes Alcohol type: beer Alcohol Intake Frequency: Monthly or Less Alcohol Intake Frequency Comment: Holidays Hx Substance Use: No Preferred Language: Yakut Communication Ability: Effective 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 Beliefs That Will Affect Care: None marital status: Current Living Situation: Alone Current Living Situation Comment: pt lives in apartment alone How many Children do You have: 3 Other Information That Helps Us Care for You: No Feels Safe at Home: Yes Safety Concerns: Feels Safe At This Time Assistive Devices: Denture - Upper, Denture - Lower, Hearing Aid - Bilateral, Hospital Bed and Walker Review of Systems Review of Systems: As per HPI, all other systems reviewed and negative Physical Exam Physical Exam: GENERAL: Comfortable, slightly anxious, slightly hard of hearing, no respiratory distress SKIN: Pallor, warm HEENT: Pale palpebral conjunctivae, no ptosis, dry buccal mucosa, nasal cannula in place NECK : Supple, no tenderness CHEST : Decreased breath sounds, no tenderness HEART : RRR, no obvious murmurs ABDOMEN: Abdominal distention, minimal hypogastric tenderness EXTREMITIES : No LE swelling/tenderness, palpable pulses, no other conspicuous deformities noted NEUROLOGIC : Coherent, no facial asymmetry, mild hearing impairment, no other gross focality Results & Data Results & Data Vital Signs (Past 12 Hours) Vital Signs Temp Pulse Resp BP Pulse Ox O2 Del Method 09/16/25 18:24 76 09/16/25 18:22 36.9 C 81 20 129/63 95 Room Air Laboratory Results Laboratory Results WBC 4.99 K/ul (4.8-10.8) 09/16/25 18:25 RBC 2.93 M/uL (4.20-5.40) L 09/16/25 18: Hgb 8.1 g/dL (12.0-16.0) L 09/16/25 18: POC Hgb 8.8 g/dl (12.0-16.0) L 09/16/25 18: Hct 26.4 % (37.0-47.0) L 09/16/25 18: POC Hct 26 % (37-47) L 09/16/25 18: MCV 90.1 fL (80.0-100.0) 09/16/25 18: MCH 27.6 pg (25.0-34.0) 09/16/25 18: MCHC 30.7 g/dL (32.0-36.0) L 09/16/25 18: RDW Std Deviation 55.2 fL (36.4-46.3) H 09/16/25: RDW Coeff of Daniela 17.0 % (11.5-14.5) H 09/16/25: Plt Count 93 K/uL (130-400) L 09/16/25 18: MPV 11.1 fL (9.4-12.4) 09/16/25: Immature Gran % (Auto) 0.6 % 09/16/25: Neut % (Auto) 63.2 % 09/16/25 18: Lymph % (Auto) 20.4 % 09/16/25 18: Elliott % (Auto) 11.0 % 09/16/25 18: Eos % (Auto) 4.2 % 09/16/25: Baso % (Auto) 0.6 % 09/16/25: Neut # (Auto) 3.15 K/uL (1.40-6.50) 09/16/25 18: Lymph # (Auto) 1.02 K/uL (1.20-3.40) L 09/16/25: Elliott # (Auto) 0.55 K/uL (0.11-0.59) 09/16/25 18: Eos # (Auto) 0.21 K/uL (0.00-0.50) 09/16/25 18: Baso # (Auto) 0.03 K/uL (0.00-0.20) 09/16/25 18:25 Immature Gran # (Auto) 0.03 K/uL (0.01-0.20) 09/16/25 18:25 POC Sodium 139 mmol/L (135-144) 09/16/25 18:29 Sodium 138 mmol/L (136-145) 09/16/25 18:25 POC Potassium 4.9 mmol/L (3.3-5.0) 09/16/25 18: Potassium 4.9 mmol/L (3.5-5.1) 09/16/25 18:25 POC Chloride 106 mmol/L (101-112) 09/16/25 18: Chloride 107 mmol/L (98-107) 09/16/25 18: Carbon Dioxide 25 mmol/L (21-32) 09/16/25 18: POC Total CO2 22 mmol/L (24-31) L 09/16/25 18:29 Anion Gap 6 (3-11) 09/16/25 18: POC Anion Gap 17.0 mmol/L (16-25) 09/16/25 18:29 POC BUN 18 mg/dl (7-18) 09/16/25 18: BUN 18 mg/dl (6-23) 09/16/25 18: Creatinine 1.24 mg/dl (0.6-1.2) H 09/16/25 18: POC Creatinine 1.4 mg/dl (0.6-1.3) H 09/16/25 18: Est Cr Clr Drug Dosing 27.5 ml/min 09/16/25 18: eGFR 41.86 09/16/25 18:25 BUN/Creatinine Ratio 14.5 (10-20) 09/16/25 18:25 Glucose 355 mg/dl (70-99(Fasting)) H* 09/16/25 18: POC Glucose (other) 328 mg/dl (70-99) H 09/16/25 18:29 Calcium 9.3 mg/dl (8.6-10.3) 09/16/25 18:25 POC Ioniz Calcium Dimple 1.25 mmol/l (1.12-1.32) 09/16/25 18: Total Bilirubin 1.2 mg/dl (0.2-1.0) H 09/16/25 18:25 AST 28 U/L (13-39) 09/16/25 18:25 ALT 20 U/L (7-52) 09/16/25 18:25 Alkaline Phosphatase 105 U/L (34-104) H 09/16/25 18:25 Total Protein 6.2 gm/dl (6.0-8.3) 09/16/25 18: Albumin 3.3 gm/dl (3.4-5.0) L 09/16/25 18: Globulin 2.9 gm/dl (2.5-4.0) 09/16/25 18: Albumin/Globulin Ratio 1.1 (0.9-2) 09/16/25 18: Lipase 57 U/L (11-82) 09/16/25 18:25 Urine Color [place] 09/16/25 19:08 Urine Appearance Cloudy (Clear) A 09/16/25 19:08 Urine pH 6.0 (4.5-7.5) 09/16/25 19:08 Ur Specific [place] 1.019 (1.000-1.030) 09/16/25 19:08 Urine Protein 2+ (Negative) H 09/16/25 19:08 Urine Glucose (UA) 3+ (Negative) H 09/16/25 19:08 Urine Ketones Negative (Negative) 09/16/25 19:08 Urine Blood 3+ (Negative) H 09/16/25 19:08 Urine Nitrite Positive (Negative) A 09/16/25 19:08 Urine Bilirubin Negative (Negative) 09/16/25 19:08 Urine Urobilinogen Negative (Negative) 09/16/25 19:08 Ur Leukocyte Esterase 2+ (Negative) H 09/16/25 19:08 Urine WBC (Auto) >50 /hpf (0-5) H 09/16/25 19:08 Urine RBC (Auto) >20 /hpf (0-2) H 09/16/25 19:08 U Hyaline Cast (Auto) 0-2 /lpf (0-2) 09/16/25 19:08 U Epithel Cells (Auto) 6-10 /hpf (0-2) H 09/16/25 19:08 Urine Bacteria (Auto) 4+ (None Seen) H 09/16/25 19:08 Urine Comment 09/16/25 19:08 Impressions Abdomen/Pelvis CT 09/16/25 18:34 EXAMINATION: Abdomen and pelvis CT with CLINICAL HISTORY: GI bleed PRIORS: 11/05/2024 TECHNIQUE: Contiguous axial images were obtained through the abdomen and pelvis with the use of intravenous contrast. Sagittal and coronal reformations are supplied. FINDINGS: Images are acquired in venous phase. Hypoventilatory changes at the right lung base, unchanged. Hepatic cirrhosis is noted with small appearance of the liver and nodular border, progressed. Moderate perihepatic ascites is present. Multiple layering gallstones noted, unchanged. Mild to moderate abdominal ascites and fluid in the pelvis. The stomach is under distended. Portal vein enhances normally. Pancreas is atrophic. Spleen is not enlarged. Paraesophageal varices noted. Advanced atherosclerotic disease of the abdominal aorta and takeoff of the great vessels. A infrarenal abdominal aortic aneurysm is identified, image 39, series 2 measuring approximately 3.6 x 3.9 cm, unchanged when compared to 11/05/2024. No surrounding inflammatory change. Atrophic uterus is present not further characterized. Urinary bladder distends normally. Kidneys are atrophic. Left renal low-attenuation lesion noted, possibly cyst. Allowing for venous phase, severe diverticulosis of the descending and sigmoid colon present. No dilated or fluid-filled loops of bowel. Mild cecal and ascending colon bowel wall thickening and pericolonic inflammatory change, extending to the proximal transverse colon, images 63 through 70 series 300 and images 33?40, axial series 2. Mild anasarca noted. No adenopathy or extraluminal gas. No extravasation of contrast, allowing for venous phase. Moderate osseous demineralization noted. Moderate degenerative change throughout the spine. IMPRESSION: 1. Mild ascending colon wall thickening and pericolonic inflammatory change favoring Colitis. Please correlate clinically. 2. Hepatic cirrhosis, progressed, with moderate ascites, and abdominal varices. 3. Advanced atherosclerotic disease of the abdominal aorta and mesenteric vessels with infrarenal abdominal aortic aneurysm measuring 3.6-3.9 cm, unchanged. 4. Severe diverticulosis of the descending and sigmoid colon with no pericolonic inflammatory change. No bowel obstruction. ACT 112: Positive. There are findings on this examination that require communication between the performing entity and the patient following Patient Test Result Information Act ([place] ACT 112) guidelines. Electronically signed by Liz Mcghee 09-16-2025 8:53 PM Diagnostic Findings Chest x-ray as per my interpretation : Atelectasis, borderline cardiomegaly
[2025-09-16] MEDS: SODIUM CHLORIDE 0.9% 1,000 ML IV ONE (21:20)
[2025-09-16] MEDS: metroNIDAZOLE 500 MG/100 ML BAG IV ONE (21:22)
[2025-09-16] MEDS: cefTRIAXone SODIUM 2,000 MG/50 ML BAG IV ONE (21:24)
[2025-09-16 21:26] LABS: Magnesium 2.1 mg/dl (1.7-2.4)
[2025-09-16] MEDS ORDERED: PROMETHAZINE 6.25 MG/50.25 ML BAG IV PRN (21:56)
[2025-09-16] MEDS ORDERED: MELATONIN 3 MG TAB PO PRN (22:01)
[2025-09-16 23:23] LABS: Hematocrit (blood only) 25.2 % (37.0-47.0); Hemoglobin 7.7 g/dL (12.0-16.0)
[2025-09-16] MEDS ORDERED: SODIUM CHLORIDE 0.9% 100 ML IV PRN (23:29)
[2025-09-16] MEDS ORDERED: GLUCOSE 10 TAB/TUBE PO PRN (23:45)
[2025-09-16] MEDS ORDERED: GLUCOSE 40% GEL 15 GM TUBE PO PRN (23:45)
[2025-09-16] MEDS ORDERED: GLUCAGON FOR INJ 1 MG VIAL SQ PRN (23:45)
[2025-09-16] MEDS ORDERED: DEXTROSE 50% 50 ML SYRINGE IV PRN (23:45)
--- NOTE | 2025-09-16 23:55 | XRay Report ---
Exam(s): XR CXR 1 VIEW EXAM: XR Chest, 1 View CLINICAL HISTORY: Reason for exam: sob. TECHNIQUE: Frontal view of the chest. COMPARISON: 11/05/2024. FINDINGS: Lungs: Unremarkable. No consolidation. Pleural space: Unremarkable. No pneumothorax. Heart: Unremarkable. No cardiomegaly. Mediastinum: Unremarkable. Normal mediastinal contour. Bones/joints: Unremarkable. No acute fracture. IMPRESSION: No acute pulmonary pathology Electronically signed by: Dex Carrasco MD 09/16/25 23:54 PM
[2025-09-17] MEDS: GABAPENTIN 300 MG CAP PO SCH
[2025-09-17] MEDS: LANTUS PER UNIT CHARGE SQ STA (00:13)
[2025-09-17] MEDS: INSULIN ASPART PER UNIT CHARGE SC SCH (00:13)
[2025-09-17] MEDS: LEVOTHYROXINE SODIUM 88 MCG TABLET PO SCH (05:38)
[2025-09-17] MEDS: metroNIDAZOLE 500 MG/100 ML BAG IV SCH (05:38)
[2025-09-17] MEDS: ALBUMIN 25% 25 GM/100 ML VIAL IV SCH (05:38)
[2025-09-17 07:15] LABS: Hematocrit (blood only) 29.5 % (37.0-47.0); Hemoglobin 9.1 g/dL (12.0-16.0); Immature Granulocytes # (auto) 0.03 K/uL (0.01-0.20); Immature Granulocytes % (auto) 0.5 %; Mean Corpuscular Hemoglobin 27.2 pg (25.0-34.0); Mean Corpuscular Volume 88.1 fL (80.0-100.0); Platelet Count 72 K/uL (130-400); RDW Standard Deviation 53.6 fL (36.4-46.3); Red Blood Count 3.35 M/uL (4.20-5.40); White Blood Count 6.01 K/ul (4.8-10.8)
[2025-09-17 07:34] LABS: Anion Gap 6.0 (3-11); Blood Urea Nitrogen 17.0 mg/dl (6-23); Calcium 9.2 mg/dl (8.6-10.3); Carbon Dioxide 25.0 mmol/L (21-32); Chloride 110.0 mmol/L (98-107); Creatinine Clr Calc Pharmacy 28.9 ml/min; Glucose 56.0 mg/dl (70-99(Fasting)); Potassium 4.5 mmol/L (3.5-5.1); Sodium 141.0 mmol/L (136-145)
[2025-09-17 07:38] LABS: INR 1.2 (0.9-1.1); Prothrombin Time 12.1 Seconds (9.0-12.0)
[2025-09-17] MEDS ORDERED: ONDANSETRON INJ 2 MG/ML 2 ML VIAL IV PRN (07:49)
[2025-09-17] MEDS: CARBOHYDRATES FOR HYPOGLYCEMIA PO PRN (08:00)
[2025-09-17] MEDS: FLUTICASONE PROPIONATE NA SPR 16 GM BTL SCH (08:16)
[2025-09-17] MEDS: ATORVASTATIN 20 MG TAB PO SCH (08:16)
[2025-09-17] MEDS ORDERED: LACTOBACILLUS ACIDOPHILUS PO SCH (09:00)
[2025-09-17] MEDS ORDERED: FERROUS SULFATE 325 MG TAB PO SCH (09:00)
[2025-09-17] MEDS: LANTUS PER UNIT CHARGE SQ SCH (10:15)
[2025-09-17] MEDS: FAMOTIDINE 40 MG TABLET PO SCH (11:07)
--- NOTE | 2025-09-17 11:52 | Gastrointestinal Consultation ---
Date of Consultation September 17, 2025 Assessment & Plan (1) Rectal bleed: H/H 9.1/29.5. BUN/Cr normal. BP stable. CT shows possible ascending colitis. Patient has consistently declined colonoscopy evaluation. Would plan to monitor H/H and monitor for further GI bleeding while here. Will also check a stool PCR due to colitis findings on CT. (2) Ascites: -Awaiting paracentesis with fluid studies as ordered by primary team -2 gm Na restricted diet -Would encourage compliance with diuretics -Will need ongoing outpatient management with Dr. Jiménez of hepatology for her ongoing cirrhosis monitoring. Supervising Physician Co-Signing Physician Notes I personally saw and examined the patient. I have reviewed the chart and agree with the documentation provided by the BELLMAN CAPTAIN including discussion about the assessment, treatment and plan. Briefly, 89 yo female with PMH of cirrhosis, DM2, diverticulitis, C diff, CHF, hypothyroidism, pulmonary edema, COPD who presented to the hospital with blood bowel movements. There are different variations of the story reported since presentation to the ED, but patient reports to me she had an abrupt onset of BRBPR yesterday. She denies abdominal pain but notes pressure and an urgency to move her bowels. She also notes that she did not pass stool--only blood. Unclear if she has had a colonoscopy in the past, but has had similar episodes and has consistently refused colonoscopy evaluations. At this point I would treat her conservatively and rule out infectious colitis. It is unclear to me whether this is portal colopathy due to her ascites or infection. She has had no further bleeding while she is here. Her hemoglobin is close to baseline. Check stool bio fiber and C. difficile. Tap Ascites and supportive care. History of Present Illness Reason for Consultation: Ascites Attending Physician: Sriram Castaneda MD History of Present Illness Patient is an 89 yo female with PMH of cirrhosis, DM2, diverticulitis, C diff, CHF, hypothyroidism, pulmonary edema, COPD who presented to the hospital with blood bowel movements. There are different variations of the story reported since presentation to the ED, but patient reports to me she had an abrupt onset of BRBPR yesterday. She denies abdominal pain but notes pressure and an urgency to move her bowels. She also notes that she did not pass stool--only blood. Unclear if she has had a colonoscopy in the past, but has had similar episodes and has consistently refused colonoscopy evaluations. Her current H/H is 9.1/29.5. 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 She last had an EGD in 2022 that showed grade 1 varices. She refused an EGD earlier this year during an admission. CT abdomen/pelvis this admission: IMPRESSION: 1. Mild ascending colon wall thickening and pericolonic inflammatory change favoring Colitis. Please correlate clinically. 2. Hepatic cirrhosis, progressed, with moderate ascites, and abdominal varices. 3. Advanced atherosclerotic disease of the abdominal aorta and mesenteric vessels with infrarenal abdominal aortic aneurysm measuring 3.6-3.9 cm, unchanged. 4. Severe diverticulosis of the descending and sigmoid colon with no pericolonic inflammatory change. No bowel obstruction. ACT 112: Positive. There are findings on this examination that require communication between the performing entity and the patient following Patient Test Result Information Act ([place] ACT 112) guidelines. Her primary team has ordered a paracentesis given her ascites. She is awaiting that at present. She appears to have been put on empiric treatment for SBP. She does not consistently take her diuretics at home. It does not seem like she strictly monitors her sodium intake. She is not sure when her next hepatology evaluation is. Current MELD is 10. Allergies Allergy/AdvReac Type Severity Reaction Status Date / Time camphor Allergy Intermediate Itching Verified 09/16/25 18:42 vitamin E (d-alpha Allergy Intermediate ITCHY Verified 09/16/25 18:42 tocopherol) RASH, HIVES albuterol [From ProAir HFA] AdvReac Intermediate SORE MOUTH Verified 09/16/25 18:42 & TONGUE amoxicillin AdvReac Intermediate CAUSED Verified 09/16/25 18:42 C-DIFF baclofen AdvReac Intermediate Falls Verified 09/16/25 18:42 clavulanic acid AdvReac Intermediate CAUSED Verified 09/16/25 18:42 C-DIFF [facility]aglutide [facility] AdvReac Intermediate NAUSEA/VOMI Verified 09/16/25 18:42 TING ropinirole AdvReac Intermediate Falls Verified 09/16/25 18:42 tramadol AdvReac Intermediate Falls Verified 09/16/25 18:42 [id number] Reductase AdvReac Unknown TOLERATES Verified 09/16/25 18:42 Inhibitor CRESTOR ONLY Home Medications Medication Instructions Recorded Confirmed Type aspirin 81 mg tablet,delayed 81 mg PO QAM 04/10/19 09/16/25 History release (Kendra Low Dose Aspirin) atorvastatin 20 mg tablet 20 mg PO QAM 04/10/19 09/16/25 History clopidogrel 75 mg tablet 75 mg PO QAM 04/10/19 09/16/25 History ferrous sulfate 325 mg (65 mg 325 mg PO 3XWK 01/01/22 09/16/25 History iron) tablet (FeroSul) gabapentin 300 mg capsule 300 mg PO HS Pain 01/01/22 09/16/25 History insulin degludec 200 unit/mL (3 44 unit subcut QAM 01/01/22 09/16/25 History mL) subcutaneous pen (Tresiba FlexTouch U-200 insulin) empagliflozin 25 mg tablet 25 mg PO QAM 09/12/22 09/16/25 History (Jardiance) furosemide 40 mg tablet 20 mg PO QAM 09/12/22 09/16/25 History fluticasone propionate 50 1 spray intranasal BID 07/10/23 09/16/25 History mcg/actuation nasal spray,suspension hydroxyzine HCl 10 mg tablet 10 mg PO Q12 PRN Itching 09/02/23 09/16/25 History melatonin 5 mg chewable tablet 10 mg PO HS PRN Sleep 09/02/23 09/16/25 History famotidine 40 mg tablet 40 mg PO DAILY 12/18/23 09/16/25 History Lactobacillus acidophilus 1 tab PO DAILY 09/16/25 09/16/25 History (Acidophilus chewable tablet) acetaminophen 500 mg tablet 1,000 mg PO BID PRN Pain 09/16/25 09/16/25 History (Tylenol Extra Strength) albuterol sulfate 90 mcg/actuation 2 puff inhalation Q4H PRN 09/16/25 09/16/25 History aerosol inhaler Shortness Of Breath Or Wheezing cholecalciferol (vitamin D3) 1,250 1,250 mcg PO WK 09/16/25 09/16/25 History mcg (50,000 unit) capsule cranberry extract 500 mg capsule 500 mg PO HS 09/16/25 09/16/25 History (Cranberry Concentrate) guaifenesin 100 mg/5 mL oral liquid 400 mg PO TID PRN Cough 09/16/25 09/16/25 History insulin aspart U-100 100 unit/mL 6 - 8 unit subcut TIDM 09/16/25 09/16/25 History (3 mL) subcutaneous pen (Novolog FlexPen U-100 Insulin aspart) levothyroxine 88 mcg tablet 88 mcg PO DAILYBB 09/16/25 09/16/25 History nystatin 100,000 unit/gram topical 1 applic topical BID PRN Skin 09/16/25 09/16/25 History cream Irritation nystatin 100,000 unit/mL oral 5 ml PO QID 09/16/25 09/16/25 History suspension pantoprazole 20 mg tablet,delayed 20 mg PO DAILYBB 09/16/25 09/16/25 History release spironolactone 50 mg tablet 50 mg PO BID 09/16/25 09/16/25 History Patient History Medical History Bilateral high frequency sensorineural hearing loss History of Graves' disease History of acute renal failure Disorder of acid-base balance DVT prophylaxis EARL (acute kidney injury) Metabolic acidosis Hypoglycemic episode in patient with diabetes mellitus Pneumonia Sinus bradycardia Hypertension PAF (paroxysmal atrial fibrillation) Atrial fibrillation with rapid ventricular response Cirrhosis Sepsis Acute metabolic encephalopathy Hypothyroidism PAD (peripheral artery disease) Cholelithiasis Pancytopenia Cirrhosis Aneurysm of infrarenal abdominal aorta GERD (gastroesophageal reflux disease) Graves disease Chest pain CKD (chronic kidney disease), stage III COPD (chronic obstructive pulmonary disease) PAD (peripheral artery disease) HLD (hyperlipidemia) Diabetes mellitus, type II Anemia HTN (hypertension) Family History Other Diabetes Hypertension Social History Smoking Status: Former smoker Tobacco Type: Cigarettes Second Hand Exposure: No; Do You Dip or Chew Tobacco: No; Tobacco Cessation Education Requested by Patient: No Hx Alcohol Use: Yes Alcohol type: beer Alcohol Intake Frequency: Monthly or Less Alcohol Intake Frequency Comment: Holidays Hx Substance Use: No Preferred Language: Irish Communication Ability: Effective Nursing Home Manager Required: No Beliefs That Will Affect Care: None marital status: Current Living Situation: Alone Current Living Situation Comment: pt lives in apartment alone How many Children do You have: 3 Other Information That Helps Us Care for You: No Feels Safe at Home: Yes Safety Concerns: Feels Safe At This Time Assistive Devices: Denture - Upper, Denture - Lower, Hearing Aid - Bilateral, Hospital Bed and Walker Review of Systems Constitutional: no fever and no chills Respiratory: no cough and no dyspnea Gastrointestinal: + blood in stools; no abdominal pain Physical Exam Constitutional: well developed Respiratory: normal respiratory effort Cardiovascular: Rate/Rhythm: regular rate Gastrointestinal (Abdomen): normal bowel sounds, soft, nontender, no hepatosplenomegaly Psychiatric: Orientation: alert and oriented x 3 Results & Data Vital Signs (Past 12 Hours) Vital Signs Temp Pulse Pulse Resp BP BP Pulse Ox 09/17/25 07:57 72 09/17/25 07:25 37.1 C 72 18 158/65 H 94 09/17/25 04:18 36.6 C 72 14 170/68 H 96 09/17/25 04:05 36.5 C 80 18 154/67 H 96 09/17/25 03:16 36.4 C L 71 14 152/67 H 94 09/17/25 02:16 36.4 C L 69 14 154/62 H 99 09/17/25 01:46 36.9 C 68 14 154/54 H 95 09/17/25 01:31 36.9 C 67 14 148/63 H 92 09/17/25 01:31 36.9 C 67 14 148/63 H 92 09/17/25 01:10 36.5 C 69 14 154/52 H 96 09/16/25 23:45 36.5 C 69 14 154/52 H 96 09/16/25 23:45 09/16/25 23:02 73 09/16/25 22:45 09/16/25 22:45 36.6 C 79 14 159/72 H 95 09/16/25 22:15 70 Pulse Ox O2 Del Method O2 Del Method O2 Flow Rate 09/17/25 07:57 09/17/25 07:25 Nasal Cannula 2 09/17/25 04:18 09/17/25 04:05 Nasal Cannula 2 09/17/25 03:16 09/17/25 02:16 1 09/17/25 01:46 09/17/25 01:31 09/17/25 01:31 09/17/25 01:10 09/16/25 23:45 Room Air 11/11/25 23:45 95 Room Air 09/16/25 23:02 09/16/25 22:45 Room Air 09/16/25 22:45 Room Air 09/16/25 22:15 PG Care Time/CCT Total # of Minutes Spent Total Time Spent with Patient: Total time spent is greater than 50% in coordination of care (as documented) at patient's floor/unit and/or counseling patient: Coding Level of Care Code 63139 IN/OBS CONSULT LVL 4,60M Diagnoses Rectal bleed K62.5 Ascites R18.8
--- NOTE | 2025-09-17 13:59 | Hospitalist Progress Note ---
Date of Service September 17, 2025 Assessment & Plan (1) Abdominal pain: Plan 89 yo female with pmhx of CAD status post stent/PVD status post surgery, PAF, hypertension, COPD, MASLD cirrhosis, recurrent C. difficile, DM 2 insulin requiring, Graves' disease status post ablation, hypothyroidism, CRI (baseline creatinine 1.2), chronic anemia (baseline hemoglobin 8-9), chronic thrombocytopenia, RLS, past tobacco abuse presenting with hematochezia likely 2/2 ascending colitis. #Hematochezia #Ascending Colitis #Acute Blood Loss Anemia -required blood transfusion last night -blood loss likely 2/2 colitis but could be in setting of diverticular bleed, h emorrhoids, less likely perforation -patient states she does not want a colonoscopy at this time Plan: -trend Hgb -GI consult, appreciate recs -trend Hgb another night given age and not wanting colonoscopy -continue ceftriaxone/flagyl in setting of colitis without possible intervention -stop iron, other medication irritants -clear liquid diet for bowel rest -possible discharge tomorrow -discussed case with daughter at length, would like daily updates #EARL on CKD, resolving -check creatinine AM PAF, patient NSR hx CAD status post stent/PVD status post surgery, on Plavix COPD, chronic cough symptoms DM 2 insulin requiring, suboptimal control as of recent hemoglobin A1c 8.7 last July 2025 Graves' disease status post ablation/hypothyroidism, euthyroid as of recent outpatient TSH from 2 months ago chronic anemia, hemoglobin at baseline chronic thrombocytopenia, secondary to liver disease past tobacco abuse I spent a total of 50 minutes in direct patient care, including [id number] time with the patient and/or family, reviewing medical records, ordering and reviewing diagnostic tests, and coordinating care with other healthcare providers. This time includes: history taking, physical examination, medical decision making, counseling, ECG interpretation, imaging interpretation, lab interpretation, orders, and education, excluding time spent in the performance of separately billed services. Admission and Anticipated Discharge Date Admission Date: September 16, 2025 Subjective Patient seen and examined at bedside. Patient doing ok today. States she had large sherry red blood BM yesterday. Very scary for her. Has happened before. Has been feeling fatigued for past few days. Some mild nausea as well. Did have vomiting a few days ago. Review of Systems Review of Systems: CONSTITUTIONAL: fatigued EYES: Patient denies any visual symptoms. EARS, NOSE, AND THROAT: No difficulties with hearing. No symptoms of rhinitis or sore throat. CARDIOVASCULAR: Patient denies chest pains, palpitations, orthopnea and paroxysmal nocturnal dyspnea. RESPIRATORY: chronic SOB GI: nausea, large hematochezia : No urinary hesitancy or dribbling. No nocturia or urinary frequency. No abnormal urethral discharge. MUSCULOSKELETAL: No myalgias or arthralgias. NEUROLOGIC: No chronic headaches, no seizures. Patient denies numbness, tingling or weakness. PSYCHIATRIC: Patient denies problems with mood disturbance. No problems with anxiety. ENDOCRINE: No excessive urination or excessive thirst. DERMATOLOGIC: Patient denies any rashes or skin changes. Physical Exam Physical Exam: Gen: A&O 3 NAD, sarcopenia noted HEENT: NCAT, EOMI, not icteric. External ears normal. No rhinorrhea. Moist mucous membranes. Neck: Supple, full range of motion, no observable masses, No meningeal sign. Lungs: mild rhonchi CV: RRR, no edema. Abdomen: mild tenderness in LLQ MSK: No joint swelling, no redness. Skin: No rashes, petechiae, lesions. Normal color per patient. Neuro: Normal Gait, Grossly intact. Psych: Appropriate for situation. Results & Data Results & Data Vital Signs (Past 12 Hours) Vital Signs Temp Pulse Pulse Resp BP BP Pulse Ox 09/17/25 11:39 37.2 C 78 18 167/66 H 94 09/17/25 08:00 09/17/25 07:57 72 09/17/25 07:25 37.1 C 72 18 158/65 H 94 09/17/25 04:18 36.6 C 72 14 170/68 H 96 09/17/25 04:05 36.5 C 80 18 154/67 H 96 09/17/25 03:16 36.4 C L 71 14 152/67 H 94 09/17/25 02:16 36.4 C L 69 14 154/62 H 99 O2 Del Method O2 Flow Rate 09/17/25 11:39 Nasal Cannula 2 09/17/25 08:00 Nasal Cannula 1 09/17/25 07:57 09/17/25 07:25 Nasal Cannula 2 09/17/25 04:18 09/17/25 04:05 Nasal Cannula 2 09/17/25 03:16 09/17/25 02:16 1 Laboratory Results -personally reviewed, Hgb improved after blood transfusion, no leukocytosis, creatinine downtrending Medications Administered Amlodipine Besylate (Amlodipine Besylate 5 Mg Tab) 2.5 mg PO [facility] Stop: 10/16/25 21:59 Last Admin: 09/17/25 00:00 Dose: 2.5 mg Documented By: BENNIE Atorvastatin Calcium (Atorvastatin 20 Mg Tab) [address] [facility] Stop: 10/17/25 08:59 Last Admin: 09/17/25 08:16 Dose: 20 mg Documented By: quirino Famotidine (Famotidine 40 Mg Tablet) 40 mg PO DAILY [facility] Stop: 10/17/25 08:59 Last Admin: 09/17/25 11:07 Dose: Not Given Documented By: quirino Fluticasone Propionate (Fluticasone Propionate Na Spr 16 Gm Btl) 1 sprays NA BID [facility] Stop: 10/17/25 08:59 Last Admin: 09/17/25 08:16 Dose: 1 sprays Documented By: quirino Gabapentin (Gabapentin 300 Mg Cap) 300 mg PO [facility] Stop: 10/16/25 21:54 Last Admin: 09/17/25 00:00 Dose: 300 mg Documented By: BENNIE Metronidazole (Flagyl) 500 mg in 100 mls @ 100 mls/hr IV Q8H [facility]; Protocol Stop: 09/27/25 05:59 Last Infusion: 09/17/25 07:09 Dose: Infused Documented By: Admin: 09/17/25 05:38 Dose: 100 mls/hr Documented By: KARAN Albumin Human (Albumin 25%) 25 gm in 100 mls @ 50 mls/hr IV Q8H [facility] Stop: 09/20/25 05:59 Last Infusion: 09/17/25 07:23 Dose: Infused Documented By: Admin: 09/17/25 05:38 Dose: 50 mls/hr Documented By: KARAN Insulin Aspart (Insulin Aspart Per Unit Charge) [facility] Stop: 10/16/25 23:44 Last Admin: 09/17/25 12:42 Dose: Not Given Documented By: cdc Admin: 09/17/25 08:15 Dose: Not Given Documented By: cdc Admin: 09/17/25 00:13 Dose: 3 units Documented By: BENNIE Co-signed By: siobhan Insulin Glargine (Lantus Per Unit Charge) 30 units SQ QAM [facility] Stop: 10/17/25 08:59 Last Admin: 09/17/25 10:15 Dose: Not Given Documented By: quirino Levothyroxine Sodium (Levothyroxine Sodium 88 Mcg Tablet) 88 mcg PO DAILYBB [facility] Stop: 10/17/25 06:29 Last Admin: 09/17/25 05:38 Dose: 88 mcg Documented By: KARAN Pantoprazole Sodium (Pantoprazole 40 Mg Tab) 40 mg PO DAILYBB [facility] Stop: 10/17/25 06:29 Last Admin: 09/17/25 05:38 Dose: 40 mg Documented By: KARAN
[2025-09-17] MEDS ORDERED: NON-FORMULARY MEDICATION (Cranberry Extract [Cranberry Concentrate] 500 mg Capsule) PO SCH (21:00)
[2025-09-17] MEDS: cefTRIAXone SODIUM 2,000 MG/50 ML BAG IV SCH (21:11)
[2025-09-17] MEDS: MELATONIN 3 MG TAB PO PRN (21:11)
[2025-09-18 07:10] LABS: Hematocrit (blood only) 29.0 % (37.0-47.0); Hemoglobin 9.1 g/dL (12.0-16.0); Mean Corpuscular Hemoglobin 27.8 pg (25.0-34.0); Mean Corpuscular Volume 88.7 fL (80.0-100.0); Platelet Count 68 K/uL (130-400); RDW Standard Deviation 56.3 fL (36.4-46.3); Red Blood Count 3.27 M/uL (4.20-5.40); White Blood Count 6.01 K/ul (4.8-10.8)
[2025-09-18 07:30] LABS: Alanine Aminotransferase 14.0 U/L (7-52); Albumin Globulin Ratio 1.4 (0.9-2); Albumin Level 3.4 gm/dl (3.4-5.0); Alkaline Phosphatase 76.0 U/L (34-104); Anion Gap 4.0 (3-11); Bilirubin,Total 1.4 mg/dl (0.2-1.0); Blood Urea Nitrogen 18.0 mg/dl (6-23); Calcium 9.2 mg/dl (8.6-10.3); Carbon Dioxide 26.0 mmol/L (21-32); Chloride 110.0 mmol/L (98-107); Creatinine Clr Calc Pharmacy 24.7 ml/min; Globulin 2.5 gm/dl (2.5-4.0); Glucose 58.0 mg/dl (70-99(Fasting)); Magnesium 1.9 mg/dl (1.7-2.4); Potassium 4.7 mmol/L (3.5-5.1); Sodium 140.0 mmol/L (136-145); Total Protein 5.9 gm/dl (6.0-8.3)
--- NOTE | 2025-09-18 10:17 | Gastroenterology Progress Note ---
Date of Service September 18, 2025 Assessment & Plan (1) Rectal bleed: Plan: Concern for diverticular vs hemorrhoidal bleeding, now resolved. Patient declines colonoscopy. Should she change her mind, she does follow with [facility] hepatology and could consider colonoscopy as an outpatient. (2) Cirrhosis: Plan: -Optimize diuretics -Ensure 2 gm Na restricted diet -Continue diuretics as prescribed by hepatology -Avoid substances harmful to the liver such as alcohol -Limit Tylenol to <2000 mg daily in divided doses q 6 hr; Avoid NSAIDs -Last variceal surveillance in 2022; Will defer further variceal and HCC surveillance to mastic floor layer. Admission and Anticipated Discharge Date Admission Date: September 16, 2025 Subjective Patient is an 89 yo female with rectal bleeding and CT concerning for ascending colitis. Stool PCR and C diff ordered, but not collected yet. She denies further GI bleeding during her admission. H/H 9.1/29.0. It appears her paracentesis was cancelled. She notes she may be going home today. She does follow with GI/hepatology at [facility]. Review of Systems Gastrointestinal: no abdominal pain, no diarrhea/loose stools and no blood in stools Physical Exam Gastrointestinal (Abdomen): Inspection/Auscultation: normal bowel sounds Percussion/Palpation: abdomen soft; abdomen nontender Results & Data Results & Data Vital Signs (Past 12 Hours) Vital Signs Temp Pulse Pulse Resp BP Pulse Ox O2 Del Method 09/18/25 07:24 84 09/18/25 07:23 37.1 C 78 18 133/58 L 90 Nasal Cannula 09/18/25 04:25 36.9 C 78 18 140/57 L 89 L Nasal Cannula 09/17/25 23:25 36.8 C 76 18 151/68 H 94 Nasal Cannula 09/17/25 23:00 78 O2 Flow Rate 09/18/25 07:24 09/18/25 07:23 2 09/18/25 04:25 2 09/17/25 23:25 2 09/17/25 23:00 PG Care Time/CCT Total # of Minutes Spent Total Time Spent with Patient: Total time spent is greater than 50% in coordination of care (as documented) at patient's floor/unit and/or counseling patient: Coding Level of Care Code 31189 SUB INP/OBS CARE 2/35MIN Diagnoses Rectal bleed K62.5 Cirrhosis K74.60
--- NOTE | 2025-09-18 12:56 | Hospitalist Progress Note ---
Date of Service September 18, 2025 Assessment & Plan (1) Abdominal pain: Plan 89 yo female with pmhx of CAD status post stent/PVD status post surgery, PAF, hypertension, COPD, MASLD cirrhosis, recurrent C. difficile, DM 2 insulin requiring, Graves' disease status post ablation, hypothyroidism, CRI (baseline creatinine 1.2), chronic anemia (baseline hemoglobin 8-9), chronic thrombocytopenia, RLS, past tobacco abuse presenting with hematochezia likely 2/2 ascending colitis. #Hematochezia #Ascending Colitis #Acute Blood Loss Anemia #Cirrhosis -required blood transfusion last night -blood loss likely 2/2 colitis but could be in setting of diverticular bleed, hemorrhoids, less likely perforation -patient states she does not want a colonoscopy at this time Plan: -trend Hgb -GI consult, appreciate recs -trend Hgb another night given age and not wanting colonoscopy -continue ceftriaxone/flagyl in setting of colitis without possible intervention -stop iron, other medication irritants -clear liquid diet for bowel rest -possible discharge tomorrow -discussed case with daughter at length, would like daily updates 06/18 resolving no diarrhea Hg stable at 9.1x 2 days Plt 93 --> 72--> 68 Stool studies: pending patient declining Colonoscopy at this time on Ceftri + Flagyl--> will discuss with GI if needs to be continued, has history of C diff ASA + Plavix held (being taken for CAD s/p stent) Paracentesis cancelled--> ascites mild #EARL on CKD baseline 1.1-1.2 crea 1.2--> 1.15--> 1.39 #HTN Amlodipine 2.5mg added last clinical research monitor PAF, patient NSR hx CAD status post stent/PVD status post surgery, on ASA + Plavix COPD, chronic cough symptoms DM 2 insulin requiring, suboptimal control as of recent hemoglobin A1c 8.7 last July 2025 Graves' disease status post ablation/hypothyroidism, euthyroid as of recent outpatient TSH from 2 months ago chronic anemia, hemoglobin at baseline chronic thrombocytopenia, secondary to liver disease--> trending down--> check peripheral smear past tobacco abuse Admission and Anticipated Discharge Date Admission Date: September 16, 2025 Subjective seen resting in chair, comfortable no diarrhea, noted to have blood when wiping after BM today otherwise no sherry hematochezia denies abdominal pain, nausea/vomiting, fever/chills no other symptoms Review of Systems Review of Systems: all noted and negative except for above Physical Exam Physical Exam: General- oriented x 3, not in distress, speaks in sentences with no effort or accessory muscle use Eyes- anicteric Neck- no JVD Lungs- clear breath sounds bilaterally, no rales/wheezes Heart- normal rate, regular rhythm; no murmurs Abdomen- normal bowel sounds, nondistended, soft, nontender Extremities- trace pretibial edema, no calf tenderness Neuro- alert, oriented x 3; no gross focal neurologic deficits Skin- warm & dry Results & Data Results & Data Vital Signs (Past 12 Hours) Vital Signs Temp Pulse Pulse Resp BP Pulse Ox O2 Del Method 09/18/25 11:13 36.9 C 75 18 136/62 95 Nasal Cannula 09/18/25 08:20 Nasal Cannula 09/18/25 07:24 84 09/18/25 07:23 37.1 C 78 18 133/58 L 90 Nasal Cannula 09/18/25 04:25 36.9 C 78 18 140/57 L 89 L Nasal Cannula O2 Flow Rate 09/18/25 11:13 2 09/18/25 08:20 1 09/18/25 07:24 09/18/25 07:23 2 09/18/25 04:25 2 all noted and reviewed including below
[2025-09-18] MEDS: ADVANCED PROBIOTIC 625 MG CAPSULE PO SCH (20:27)
[2025-09-18] MEDS: ERTAPENEM 500MG 500 MG/5 ML SYR IV SCH (20:35)
[2025-09-18] MEDS: ALBUTEROL HFA 8 GM INHALER INH PRN (21:33)
--- NOTE | 2025-09-19 00:09 | XRay Report ---
Exam(s): XR CXR 1 VIEW EXAM: XR Chest, 1 View CLINICAL HISTORY: Reason for exam: wheeze. TECHNIQUE: Frontal view of the chest. COMPARISON: Prior chest x-ray from September 16, 2025. FINDINGS: Lungs: Moderate to heavy peribronchial thickening of the central lower lobe bronchi with subtle patchy opacity at the left lung base. There is hyperinflation lungs and flattening the diaphragms. Pleural space: There is blunting the costophrenic angles. No pneumothorax. Heart: Unremarkable. No cardiomegaly. Mediastinum: Unremarkable. Normal mediastinal contour. Bones/joints: Unremarkable. No acute fracture. IMPRESSION: Bronchitis with right lower lobe infiltrate. Blunting the costophrenic angles, which may represent tiny pleural effusions are chronic pleural disease. Communications: Verify Receipt Electronically signed by: Fatemeh Cotton MD 09/19/25 00:08 AM
[2025-09-19 06:19] LABS: Hematocrit (blood only) 29.3 % (37.0-47.0); Hemoglobin 9.2 g/dL (12.0-16.0); Mean Corpuscular Hemoglobin 28.3 pg (25.0-34.0); Mean Corpuscular Volume 90.2 fL (80.0-100.0); Platelet Count 57 K/uL (130-400); RDW Standard Deviation 56.9 fL (36.4-46.3); Red Blood Count 3.25 M/uL (4.20-5.40); White Blood Count 4.15 K/ul (4.8-10.8)
[2025-09-19 06:45] LABS: Alanine Aminotransferase 13.0 U/L (7-52); Albumin Globulin Ratio 1.4 (0.9-2); Albumin Level 3.3 gm/dl (3.4-5.0); Alkaline Phosphatase 71.0 U/L (34-104); Anion Gap 5.0 (3-11); Bilirubin,Total 1.3 mg/dl (0.2-1.0); Blood Urea Nitrogen 19.0 mg/dl (6-23); Calcium 9.4 mg/dl (8.6-10.3); Carbon Dioxide 25.0 mmol/L (21-32); Chloride 110.0 mmol/L (98-107); Creatinine Clr Calc Pharmacy 27.2 ml/min; Globulin 2.3 gm/dl (2.5-4.0); Glucose 85.0 mg/dl (70-99(Fasting)); Potassium 4.5 mmol/L (3.5-5.1); Sodium 140.0 mmol/L (136-145); Total Protein 5.6 gm/dl (6.0-8.3)
--- NOTE | 2025-09-19 08:30 | Electrocardiogram Report ---
Test Reason : Blood Pressure : */* mmHG Vent. Rate : 77 BPM Atrial Rate : 77 BPM P-R Int : 200 ms QRS Dur : 94 ms QT Int : 412 ms P-R-T Axes : 69 -30 88 degrees QTcB Int : 466 ms Normal sinus rhythm Left axis deviation Septal infarct (cited on or before 07-Nov-2024) Abnormal ECG When compared with ECG of 07-Nov-2024 06:45, Questionable change in initial forces of Anteroseptal leads Confirmed by Celso Winston ([id number]) on 09/19/2025 8:30:36 AM Referred By: REFERRED SELF Confirmed By: Celso Winston
--- NOTE | 2025-09-19 09:43 | Hospitalist Progress Note ---
Date of Service September 19, 2025 Assessment & Plan (1) Abdominal pain: Plan 89 yo female with pmhx of CAD status post stent/PVD status post surgery, PAF, hypertension, COPD, MASLD cirrhosis, recurrent C. difficile, DM 2 insulin requiring, Graves' disease status post ablation, hypothyroidism, CRI (baseline creatinine 1.2), chronic anemia (baseline hemoglobin 8-9), chronic thrombocytopenia, RLS, past tobacco abuse presenting with hematochezia likely 2/2 ascending colitis. #Hematochezia #Ascending Colitis #Acute Blood Loss Anemia #Cirrhosis -required blood transfusion last night -blood loss likely 2/2 colitis but could be in setting of diverticular bleed, hemorrhoids, less likely perforation -patient states she does not want a colonoscopy at this time Plan: -trend Hgb -GI consult, appreciate recs -trend Hgb another night given age and not wanting colonoscopy -continue ceftriaxone/flagyl in setting of colitis without possible intervention -stop iron, other medication irritants -clear liquid diet for bowel rest -possible discharge tomorrow -discussed case with daughter at length, would like daily updates 09/18 resolving no diarrhea Hg stable at 9.1x 2 days Plt 93 --> 72--> 68 Stool studies: pending patient declining Colonoscopy at this time on Ceftri + Flagyl--> will discuss with GI if needs to be continued, has history of C diff ASA + Plavix held (being taken for CAD s/p stent) Paracentesis cancelled--> ascites mild 09/19 Hematochezia resolved Hemoglobin stable at around 9 for the past 3 days Platelets still trending down, monitor closely Stool studies: Positive for EPEC Currently on ertapenem for UTI Hold aspirin, Plavix in light of thrombocytopenia as per above resume Lasix, spironolactone #EARL on CKD baseline 1.1-1.2 crea 1.2--> 1.15--> 1.39, Creatinine improved to 1.2 #HTN Amlodipine 2.5mg added last night filler PAF, patient NSR hx CAD status post stent/PVD status post surgery,HOLD ASA + Plavix COPD, chronic cough symptoms DM 2 insulin requiring, suboptimal control as of recent hemoglobin A1c 8.7 last July 2025 Graves' disease status post ablation/hypothyroidism, euthyroid as of recent outpatient TSH from 2 months ago chronic anemia, hemoglobin at baseline chronic thrombocytopenia, secondary to liver disease--> trending down past tobacco abuse Disposition Admitted to [facility] With telemetry Lives at home by herself plan of care discussed with patient and her daughter over the phone in detail and at length all questions answered they are understanding, agreeable, comfortable with the plan of care Admission and Anticipated Discharge Date Admission Date: September 16, 2025 Subjective seen resting in bed, comfortable, not in distress States she feels tired otherwise feels fine No abdominal pain, diarrhea, hematochezia or melena today No nausea or vomiting Has some mild dysuria, no fevers or chills No other new symptoms Review of Systems Review of Systems: all noted and negative except for above Physical Exam Physical Exam: General- oriented x 3, not in distress, speaks in sentences with no effort or accessory muscle use Eyes- anicteric Neck- no JVD Lungs- clear breath sounds bilaterally, no rales/wheezes Heart- normal rate, regular rhythm; no murmurs Abdomen- normal bowel sounds, nondistended, soft, nontender Extremities- no pretibial edema, no calf tenderness Neuro- alert, oriented x 3; no gross focal neurologic deficits Skin- warm & dry Results & Data Results & Data Vital Signs (Past 12 Hours) Vital Signs Temp Pulse Pulse Resp BP Pulse Ox O2 Del Method 09/19/25 09:00 75 09/19/25 08:03 36.8 C 77 18 144/71 H 91 Nasal Cannula 09/19/25 04:00 36.5 C 73 18 131/60 95 Nasal Cannula 09/18/25 23:17 36.4 C L 87 18 142/64 H 92 Nasal Cannula 09/18/25 22:18 Nasal Cannula 09/18/25 21:55 78 O2 Flow Rate 09/19/25 09:00 09/19/25 08:03 2 09/19/25 04:00 2 09/18/25 23:17 2 09/18/25 22:18 1 09/18/25 21:55 all noted and reviewed including below
[2025-09-19] MEDS: SPIRONOLACTONE 25 MG TAB PO SCH (11:24)
[2025-09-19] MEDS: FUROSEMIDE 20 MG TAB PO SCH (11:24)
--- NOTE | 2025-09-19 11:30 | Infectious Disease Consult ---
Date of Service September 19, 2025 Telehealth Information I performed this visit using a real-time telehealth connection between my location and the patients location ([facility]). After connecting through interactive tele-video, patient was identified by name and date of and/or wristband check.Patient (or authorized healthcare metals sales representative) was informed that this was a telemedicine visit and it was being conducted confidentially over secure lines. My office door was closed and no one else was present in the room with me.Patient (or authorized healthcare metals sales representative) provided consent to proceed with the visit, expressed an understanding of privacy and security of the telemedicine visit, and gave permission to have a hospital metals sales representative in the room in order to assist with the visit and to conduct portions of the visit, as needed. I informed the patient (or authorized healthcare metals sales representative) that I reviewed their record and presented the opportunity for them to ask any questions regarding the visit today. The patient agreed to participate. ESBL Klebsiella pneumoniae UTI Assessment & Plan (1) Abdominal pain, lower: Plan: resolved (2) Urinary tract infection due to ESBL Klebsiella: Plan: On ertapenem Plan 89 y/o F who presented with bleeding hemorrhoids and denies any urinary symptoms but was tested and her urine culture has grown ESBL Klebsiella pneumoniae and she is currently on ertapenem.I would recommend discontinuing ertapenem and monitoring her off antibiotics as she is asymptomatic and is likely colonized .Thank you for allowing us to participate in the care of this patient ID will sign off History of Present Illness History of Present Illness 89 y/o F PMHx CAD status post stent/PVD status post surgery, PAF, hypertension, COPD, MASLD cirrhosis, recurrent C. difficile, DM 2 insulin requiring, Graves' disease status post ablation, hypothyroidism, CRI (baseline creatinine 1.2), chronic anemia (baseline hemoglobin 8-9), chronic thrombocytopenia, RLS, past tobacco abuse who presented with abdominal pain and was found to have ESBL Klebsiella i in urine culture on Ertapenem Allergies Allergy/AdvReac Type Severity Reaction Status Date / Time camphor Allergy Intermediate Itching Verified 09/16/25 18:42 vitamin E (d-alpha Allergy Intermediate ITCHY Verified 09/16/25 18:42 tocopherol) RASH, HIVES albuterol [From [facility] HFA] AdvReac Intermediate SORE MOUTH Verified 09/16/25 18:42 & TONGUE amoxicillin AdvReac Intermediate CAUSED Verified 09/16/25 18:42 C-DIFF baclofen AdvReac Intermediate Falls Verified 09/16/25 18:42 clavulanic acid AdvReac Intermediate CAUSED Verified 09/16/25 18:42 C-DIFF dulaglutide [From [facility]] AdvReac Intermediate NAUSEA/VOMI Verified 09/16/25 18:42 TING ropinirole AdvReac Intermediate Falls Verified 09/16/25 18:42 tramadol AdvReac Intermediate Falls Verified 09/16/25 18:42 [id number] Reductase AdvReac Unknown TOLERATES Verified 09/16/25 18:42 Inhibitor CRESTOR ONLY Home Medications Medication Instructions Recorded Confirmed Type aspirin 81 mg tablet,delayed 81 mg PO QAM 04/10/19 09/16/25 History release (Kendra Low Dose Aspirin) atorvastatin 20 mg tablet 20 mg PO QAM 04/10/19 09/16/25 History clopidogrel 75 mg tablet 75 mg PO QAM 04/10/19 09/16/25 History ferrous sulfate 325 mg (65 mg 325 mg PO 3XWK 01/01/22 09/16/25 History iron) tablet (FeroSul) gabapentin 300 mg capsule 300 mg PO HS Pain 01/01/22 09/16/25 History insulin degludec 200 unit/mL (3 44 unit subcut QAM 01/01/22 09/16/25 History mL) subcutaneous pen (Tresiba FlexTouch U-200 insulin) empagliflozin 25 mg tablet 25 mg PO QAM 09/12/22 09/16/25 History (Jardiance) furosemide 40 mg tablet 20 mg PO QAM 09/12/22 09/16/25 History fluticasone propionate 50 1 spray intranasal BID 07/10/23 09/16/25 History mcg/actuation nasal spray,suspension hydroxyzine HCl 10 mg tablet 10 mg PO Q12 PRN Itching 09/02/23 09/16/25 History melatonin 5 mg chewable tablet 10 mg PO HS PRN Sleep 09/02/23 09/16/25 History famotidine 40 mg tablet 40 mg PO DAILY 12/18/23 09/16/25 History Lactobacillus acidophilus 1 tab PO DAILY 09/16/25 09/16/25 History (Acidophilus chewable tablet) acetaminophen 500 mg tablet 1,000 mg PO BID PRN Pain 09/16/25 09/16/25 History (Tylenol Extra Strength) albuterol sulfate 90 mcg/actuation 2 puff inhalation Q4H PRN 09/16/25 09/16/25 History aerosol inhaler Shortness Of Breath Or Wheezing cholecalciferol (vitamin D3) 1,250 1,250 mcg PO WK 09/16/25 09/16/25 History mcg (50,000 unit) capsule cranberry extract 500 mg capsule 500 mg PO HS 09/16/25 09/16/25 History (Cranberry Concentrate) guaifenesin 100 mg/5 mL oral liquid 400 mg PO TID PRN Cough 09/16/25 09/16/25 History insulin aspart U-100 100 unit/mL 6 - 8 unit subcut TIDM 09/16/25 09/16/25 History (3 mL) subcutaneous pen (Novolog FlexPen U-100 Insulin aspart) levothyroxine 88 mcg tablet 88 mcg PO DAILYBB 09/16/25 09/16/25 History nystatin 100,000 unit/gram topical 1 applic topical BID PRN Skin 09/16/25 09/16/25 History cream Irritation nystatin 100,000 unit/mL oral 5 ml PO QID 09/16/25 09/16/25 History suspension pantoprazole 20 mg tablet,delayed 20 mg PO DAILYBB 09/16/25 09/16/25 History release spironolactone 50 mg tablet 50 mg PO BID 09/16/25 09/16/25 History Patient History Medical History Bilateral high frequency sensorineural hearing loss History of Graves' disease History of acute renal failure Disorder of acid-base balance DVT prophylaxis EARL (acute kidney injury) Metabolic acidosis Hypoglycemic episode in patient with diabetes mellitus Pneumonia Sinus bradycardia Hypertension PAF (paroxysmal atrial fibrillation) Atrial fibrillation with rapid ventricular response Cirrhosis Sepsis Acute metabolic encephalopathy Hypothyroidism PAD (peripheral artery disease) Cholelithiasis Pancytopenia Cirrhosis Aneurysm of infrarenal abdominal aorta GERD (gastroesophageal reflux disease) Graves disease Chest pain CKD (chronic kidney disease), stage III COPD (chronic obstructive pulmonary disease) PAD (peripheral artery disease) HLD (hyperlipidemia) Diabetes mellitus, type II Anemia HTN (hypertension) Family History Other Diabetes Hypertension Social History Smoking Status: Former smoker Tobacco Type: Cigarettes Second Hand Exposure: No; Do You Dip or Chew Tobacco: No; Tobacco Cessation Education Requested by Patient: No Hx Alcohol Use: Yes Alcohol type: beer Alcohol Intake Frequency: Monthly or Less Alcohol Intake Frequency Comment: Holidays Hx Substance Use: No Preferred Language: Guyanese Communication Ability: Effective 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 Beliefs That Will Affect Care: None marital status: Current Living Situation: Alone Current Living Situation Comment: pt lives in apartment alone How many Children do You have: 3 Other Information That Helps Us Care for You: No Feels Safe at Home: Yes Safety Concerns: Feels Safe At This Time Assistive Devices: Cane, Hearing Aid - Bilateral and Walker Review of Systems Denies urinary symptoms Physical Exam Awake alert hearing impaired Results & Data Vital Signs (Past 12 Hours) Vital Signs Temp Pulse Pulse Resp BP Pulse Ox O2 Del Method 09/19/25 11:19 36.8 C 68 18 155/61 H 96 Nasal Cannula 09/19/25 09:00 75 09/19/25 08:03 36.8 C 77 18 144/71 H 91 Nasal Cannula 09/19/25 04:00 36.5 C 73 18 131/60 95 Nasal Cannula O2 Flow Rate 09/19/25 11:19 2 09/19/25 09:00 09/19/25 08:03 2 09/19/25 04:00 2 Laboratory Results ESBL K pne RX M.I.C. --- --------- Amikacin S <=16 Amox/Clav S <=8/4 Amp/Sul S 8/4 Cefazolin R >16 Cefepime R >16 Cefotaxime R >32 Cefoxitin S <=8 Ceftriaxone R >32 Cefuroxime R >16 Ciprofloxacin I 0.5 Ertapenem S <=0.5 Gentamicin S <=2 Levofloxacin S <=0.5 Meropenem S <=1 Nitrofurantoin I 64 Tobramycin S <=2 Trimeth/Sulfa R >2/38 Pip/Tazo S <=8 S = SENSITIVE I = INTERMEDIATE R = RESISTANT Diagnostic Findings IMPRESSION: 1. Mild ascending colon wall thickening and pericolonic inflammatory change favoring Colitis. Please correlate clinically. 2. Hepatic cirrhosis, progressed, with moderate ascites, and abdominal varices. 3. Advanced atherosclerotic disease of the abdominal aorta and mesenteric vessels with infrarenal abdominal aortic aneurysm measuring 3.6-3.9 cm, unchanged. 4. Severe diverticulosis of the descending and sigmoid colon with no pericolonic inflammatory change. No bowel obstruction.
[2025-09-19 11:49] LABS: Cdiff Toxin B Gene (2yr or >) Negative Cdiff Gene (Neg)
[2025-09-19] MEDS ORDERED: CHERRY SYRUP 5 ML UDP PO SCH (12:00)
[2025-09-19] MEDS: VANCOMYCIN HCL 125 MG CAP PO SCH (12:01)
[2025-09-19 12:24] LABS: Adenovirus F 40/41 PCR Not Detected (NotDetected); Campylobacter PCR Not Detected (NotDetected); Enteroaggregative E.coli(EAEC) Not Detected (NotDetected); Shiga-like Toxin E.coli (STEC) Not Detected (NotDetected); Vibrio species PCR Not Detected (NotDetected)
[2025-09-19] MEDS ORDERED: NON-FORMULARY PATIENT'S OWN MED SCH (13:45)
[2025-09-19] MEDS: FUROSEMIDE 20 MG TAB PO ONE (18:30)
[2025-09-19] MEDS: guaiFENesin 600 MG TABCR PO SCH (20:15)
[2025-09-20 07:13] LABS: Hematocrit (blood only) 29.5 % (37.0-47.0); Hemoglobin 9.3 g/dL (12.0-16.0); Mean Corpuscular Hemoglobin 28.1 pg (25.0-34.0); Mean Corpuscular Volume 89.1 fL (80.0-100.0); Platelet Count 61 K/uL (130-400); RDW Standard Deviation 55.4 fL (36.4-46.3); Red Blood Count 3.31 M/uL (4.20-5.40); White Blood Count 4.63 K/ul (4.8-10.8)
[2025-09-20 07:56] LABS: Alanine Aminotransferase 13.0 U/L (7-52); Albumin Globulin Ratio 1.4 (0.9-2); Albumin Level 3.3 gm/dl (3.4-5.0); Alkaline Phosphatase 75.0 U/L (34-104); Anion Gap 4.0 (3-11); Bilirubin,Total 1.3 mg/dl (0.2-1.0); Blood Urea Nitrogen 24.0 mg/dl (6-23); Calcium 9.5 mg/dl (8.6-10.3); Carbon Dioxide 26.0 mmol/L (21-32); Chloride 107.0 mmol/L (98-107); Creatinine Clr Calc Pharmacy 24.8 ml/min; Globulin 2.3 gm/dl (2.5-4.0); Glucose 139.0 mg/dl (70-99(Fasting)); Potassium 4.9 mmol/L (3.5-5.1); Sodium 137.0 mmol/L (136-145); Total Protein 5.6 gm/dl (6.0-8.3)
--- NOTE | 2025-09-20 09:48 | Hospitalist Progress Note ---
Date of Service September 20, 2025 Assessment & Plan (1) Abdominal pain: Plan 89 yo female with pmhx of CAD status post stent/PVD status post surgery, PAF, hypertension, COPD, MASLD cirrhosis, recurrent C. difficile, DM 2 insulin requiring, Graves' disease status post ablation, hypothyroidism, CRI (baseline creatinine 1.2), chronic anemia (baseline hemoglobin 8-9), chronic thrombocytopenia, RLS, past tobacco abuse presenting with hematochezia likely 2/2 ascending colitis. #Hematochezia #Ascending Colitis,(+) EPEC #Acute Blood Loss Anemia #Cirrhosis -required blood transfusion last night -blood loss likely 2/2 colitis but could be in setting of diverticular bleed, hemorrhoids, less likely perforation -patient states she does not want a colonoscopy at this time Plan: -trend Hgb -GI consult, appreciate recs -trend Hgb another night given age and not wanting colonoscopy -continue ceftriaxone/flagyl in setting of colitis without possible intervention -stop iron, other medication irritants -clear liquid diet for bowel rest -possible discharge tomorrow -discussed case with daughter at length, would like daily updates 09/18 resolving no diarrhea Hg stable at 9.1x 2 days Plt 93 --> 72--> 68 Stool studies: pending patient declining Colonoscopy at this time on Ceftri + Flagyl--> will discuss with GI if needs to be continued, has history of C diff ASA + Plavix held (being taken for CAD s/p stent) Paracentesis cancelled--> ascites mild 09/19 Hematochezia resolved Hemoglobin stable at around 9 for the past 3 days Platelets still trending down, monitor closely Stool studies: Positive for EPEC Currently on ertapenem for UTI Hold aspirin, Plavix in light of thrombocytopenia as per above resume Lasix, spironolactone 09/20 hematochezia resolved Hg stable at 9.3 Plt stable around 50-60s continue Ertapenem day 3/3 hold ASA, Plavix for today (day 5 of holding) (+) lower extremity edema Lasix, Spironolactone held for 3 days starting admission day additional Lasix 20mg IV lasix today continue usual PO Lasix plus Aldactone # Klebsiella pneumonia UTI history of recurrent C. difficile - Patient reporting severe dysuria to RN during this admission - ID service consulted, recommending 1 dose of gentamicin IV - will avoid gentamicin IV in light of patient's CKD, advanced age, cirrhosis requiring diuretics - continue ertapenem day number 3 out of 3 vancomycin daily times total of 10-day course for C. difficile colitis prophylaxis #Acute hypoxia Chronic bronchitis, COPD/asthma possible component of volume overload in the setting of cirrhosis - chest x-ray showing signs of bronchitis - patient reports chronic cough and sputum production, has not worsened - patient reports having developed severe oral ulcers with nebulizer treatment--> declines trial of nebulizer treatment encouraged to use incentive spirometry, flutter valve, Mucinex - Lasix IV per above - will need repeat two-step exercise test prior to discharge #EARL on CKD baseline 1.1-1.2 crea 1.2--> 1.15--> 1.39, Creatinine improved to 1.2 #HTN Amlodipine 2.5mg added last quality assurance monitor body PAF, patient NSR hx CAD status post stent/PVD status post surgery,HOLD ASA + Plavix, resume in 1 to 2 days if still without signs of GI bleed COPD, chronic cough symptoms DM 2 insulin requiring, suboptimal control as of recent hemoglobin A1c 8.7 last July 2025 Graves' disease status post ablation/hypothyroidism, euthyroid as of recent outpatient TSH from 2 months ago chronic anemia, hemoglobin at baseline chronic thrombocytopenia, secondary to liver disease--> trending down past tobacco abuse Disposition Admitted to [facility] With telemetry Lives at home by herself Admission and Anticipated Discharge Date Admission Date: September 16, 2025 Subjective seen resting in chair, Sleeping but easily awakened Reports breathing is improving, less cough, able to expectorate more phlegm No chest pain No abdominal pain, no blood in the stools, nausea Reports increased swelling of bilateral lower legs, associated with Significant itching Denies lower leg pain No other new symptoms Review of Systems Review of Systems: all noted and negative except for above Physical Exam Physical Exam: General- oriented x 3, not in distress, speaks in sentences with no effort or accessory muscle use Eyes- anicteric Neck- no JVD Lungs- clear breath sounds bilaterally, no rales/wheezes Heart- normal rate, regular rhythm; no murmurs Abdomen- normal bowel sounds, nondistended, soft, nontender Extremities- (+) grade 1 lower extremity edema, R> L, mild erythema on the right lower leg, no warmth, no tenderness Neuro- alert, oriented x 3; no gross focal neurologic deficits Skin- warm & dry Results & Data Results & Data Vital Signs (Past 12 Hours) Vital Signs Temp Pulse Pulse Resp BP BP Pulse Ox 09/20/25 07:48 09/20/25 07:30 36.6 C 76 18 173/70 H 95 09/20/25 06:48 70 09/20/25 03:53 36.3 C L 76 18 160/72 H 95 09/20/25 00:46 36.3 C L 84 20 153/50 H 92 09/19/25 21:52 72 O2 Del Method O2 Flow Rate 09/20/25 07:48 Nasal Cannula 2 09/20/25 07:30 Nasal Cannula 2 09/20/25 06:48 09/20/25 03:53 Nasal Cannula 2 09/20/25 00:46 Nasal Cannula 2 09/19/25 21:52 all noted and reviewed including below
[2025-09-20] MEDS: FUROSEMIDE INJ 20 MG/2 ML VIAL IV ONE (10:05)
--- NOTE | 2025-09-20 20:26 | Communication Note ---
Date of Service: September 20, 2025 Patient noted to have painful right foot swelling. Has been dealing with issue even before admission as per RN. Foot x-ray Minimally displaced avulsion fracture involving the cuboid only seen on the lateral image. AP Right foot fracture Ortho consult in a.m.
--- NOTE | 2025-09-20 21:21 | XRay Report ---
Three-view views right foot No comparison Impression: Minimally displaced avulsion fracture involving the cuboid only seen on the lateral image. Electronically signed by Dex Carrasco 09-20-2025 9:20 PM
[2025-09-21 09:47] LABS: Hematocrit (blood only) 31.9 % (37.0-47.0); Hemoglobin 9.8 g/dL (12.0-16.0); Immature Granulocytes # (auto) 0.02 K/uL (0.01-0.20); Immature Granulocytes % (auto) 0.3 %; Mean Corpuscular Hemoglobin 27.8 pg (25.0-34.0); Mean Corpuscular Volume 90.4 fL (80.0-100.0); Platelet Count 75 K/uL (130-400); RDW Standard Deviation 56.0 fL (36.4-46.3); Red Blood Count 3.53 M/uL (4.20-5.40); White Blood Count 5.91 K/ul (4.8-10.8)
[2025-09-21 10:01] LABS: Anion Gap 6.0 (3-11); Blood Urea Nitrogen 29.0 mg/dl (6-23); Calcium 9.7 mg/dl (8.6-10.3); Carbon Dioxide 27.0 mmol/L (21-32); Chloride 104.0 mmol/L (98-107); Creatinine Clr Calc Pharmacy 22.2 ml/min; Glucose 171.0 mg/dl (70-99(Fasting)); Potassium 4.9 mmol/L (3.5-5.1); Sodium 137.0 mmol/L (136-145)
[2025-09-21] MEDS: LIDOCAINE 5% 1 PATCH TD SCH (11:08)
--- NOTE | 2025-09-21 14:05 | Orthopedic Consultation ---
Date of Consultation September 21, 2025 Assessment & Plan (1) Gout attack: Discussed with patient that her history and physical examination are most consistent with gout. To definitively diagnose this she would need an aspiration sent for crystals. However she does not have a large effusion either her MTP joint or her ankle joint. Furthermore given her multiple medical comorbidities she would be at risk for developing a secondary infection with an aspiration. Therefore I recommend empiric treatment of her for gout. I think she needs to be on chronic allopurinol to decrease her risk of gouty attacks. She can follow-up with her primary care physician for ongoing management of her gout. Weight-bear as tolerated in normal shoewear. Discussed the x-ray findings that she does not have evidence of an acute fracture. History of Present Illness Reason for Consultation: Right foot pain Attending Physician: Francois Hamilton MD History of Present Illness 89-year-old female, with medical history significant for CAD status post stent/PVD status post surgery, PAF, hypertension, COPD, MASLD cirrhosis, recurrent C. difficile, DM 2 insulin requiring, Graves' disease status post ablation, hypothyroidism, CRI (baseline creatinine 1.2), chronic anemia (baseline hemoglobin 8-9), chronic thrombocytopenia, RLS, past tobacco abuse, admitted to the hospital about 4 days ago with bright red blood per rectum. She has been followed by GI and is on the hospitalist service. She has been complaining of right foot pain. X-rays were obtained and orthopedics was consulted for an opinion on her foot. Patient was seen and examined on the floor. She reports her foot is been bothering her for many years although she cannot quantify exactly how many. She denies any history of trauma to her foot. She has had episodes where the foot pain waxes and wanes. Most recently it started bothering her about 4 days ago. Hurts her to walk sometimes. The pain moves around in her foot. This time it started in her big toe. It is now moved onto her midfoot into her ankle. Pain is sharp in character. She denies any numbness or tingling. Denies any fevers or chills. She says she has been given various diagnoses over the years. She says she has had 1 cortisone shot that gave her some relief. She does not know if she has ever had an aspiration of the joint sent for crystals but she does mention that she was given a diagnosis of gout in the past. Allergies Allergy/AdvReac Type Severity Reaction Status Date / Time camphor Allergy Intermediate Itching Verified 09/16/25 18:42 vitamin E (d-alpha Allergy Intermediate ITCHY Verified 09/16/25 18:42 tocopherol) RASH, HIVES albuterol [From ProAir HFA] AdvReac Intermediate SORE MOUTH Verified 09/16/25 18:42 & TONGUE amoxicillin AdvReac Intermediate CAUSED Verified 09/16/25 18:42 C-DIFF baclofen AdvReac Intermediate Falls Verified 09/16/25 18:42 clavulanic acid AdvReac Intermediate CAUSED Verified 09/16/25 18:42 C-DIFF dulaglutide [From Trulicity] AdvReac Intermediate NAUSEA/VOMI Verified 09/16/25 18:42 TING ropinirole AdvReac Intermediate Falls Verified 09/16/25 18:42 tramadol AdvReac Intermediate Falls Verified 09/16/25 18:42 [id number] Reductase AdvReac Unknown TOLERATES Verified 09/16/25 18:42 Inhibitor CRESTOR ONLY Home Medications Medication Instructions Recorded Confirmed Type aspirin 81 mg tablet,delayed 81 mg PO QAM 04/10/19 09/16/25 History release (Kendra Low Dose Aspirin) atorvastatin 20 mg tablet 20 mg PO QAM 04/10/19 09/16/25 History clopidogrel 75 mg tablet 75 mg PO QAM 04/10/19 09/16/25 History ferrous sulfate 325 mg (65 mg 325 mg PO 3XWK 01/01/22 09/16/25 History iron) tablet (FeroSul) gabapentin 300 mg capsule 300 mg PO HS Pain 01/01/22 09/16/25 History insulin degludec 200 unit/mL (3 44 unit subcut QAM 01/01/22 09/16/25 History mL) subcutaneous pen (Tresiba FlexTouch U-200 insulin) empagliflozin 25 mg tablet 25 mg PO QAM 09/12/22 09/16/25 History (Jardiance) furosemide 40 mg tablet 20 mg PO QAM 09/12/22 09/16/25 History fluticasone propionate 50 1 spray intranasal BID 07/10/23 09/16/25 History mcg/actuation nasal spray,suspension hydroxyzine HCl 10 mg tablet 10 mg PO Q12 PRN Itching 09/02/23 09/16/25 History melatonin 5 mg chewable tablet 10 mg PO HS PRN Sleep 09/02/23 09/16/25 History famotidine 40 mg tablet 40 mg PO DAILY 12/18/23 09/16/25 History Lactobacillus acidophilus 1 tab PO DAILY 09/16/25 09/16/25 History (Acidophilus chewable tablet) acetaminophen 500 mg tablet 1,000 mg PO BID PRN Pain 09/16/25 09/16/25 History (Tylenol Extra Strength) albuterol sulfate 90 mcg/actuation 2 puff inhalation Q4H PRN 09/16/25 09/16/25 History aerosol inhaler Shortness Of Breath Or Wheezing cholecalciferol (vitamin D3) 1,250 1,250 mcg PO WK 09/16/25 09/16/25 History mcg (50,000 unit) capsule cranberry extract 500 mg capsule 500 mg PO HS 09/16/25 09/16/25 History (Cranberry Concentrate) guaifenesin 100 mg/5 mL oral liquid 400 mg PO TID PRN Cough 09/16/25 09/16/25 History insulin aspart U-100 100 unit/mL 6 - 8 unit subcut TIDM 09/16/25 09/16/25 History (3 mL) subcutaneous pen (Novolog FlexPen U-100 Insulin aspart) levothyroxine 88 mcg tablet 88 mcg PO DAILYBB 09/16/25 09/16/25 History nystatin 100,000 unit/gram topical 1 applic topical BID PRN Skin 09/16/25 09/16/25 History cream Irritation nystatin 100,000 unit/mL oral 5 ml PO QID 09/16/25 09/16/25 History suspension pantoprazole 20 mg tablet,delayed 20 mg PO DAILYBB 09/16/25 09/16/25 History release spironolactone 50 mg tablet 50 mg PO BID 09/16/25 09/16/25 History Patient History Medical History Bilateral high frequency sensorineural hearing loss History of Graves' disease History of acute renal failure Disorder of acid-base balance DVT prophylaxis EARL (acute kidney injury) Metabolic acidosis Hypoglycemic episode in patient with diabetes mellitus Pneumonia Sinus bradycardia Hypertension PAF (paroxysmal atrial fibrillation) Atrial fibrillation with rapid ventricular response Cirrhosis Sepsis Acute metabolic encephalopathy Hypothyroidism PAD (peripheral artery disease) Cholelithiasis Pancytopenia Cirrhosis Aneurysm of infrarenal abdominal aorta GERD (gastroesophageal reflux disease) Graves disease Chest pain CKD (chronic kidney disease), stage III COPD (chronic obstructive pulmonary disease) PAD (peripheral artery disease) HLD (hyperlipidemia) Diabetes mellitus, type II Anemia HTN (hypertension) Family History Other Diabetes Hypertension Social History Smoking Status: Former smoker Tobacco Type: Cigarettes Second Hand Exposure: No; Do You Dip or Chew Tobacco: No; Tobacco Cessation Education Requested by Patient: No Hx Alcohol Use: Yes Alcohol type: beer Alcohol Intake Frequency: Monthly or Less Alcohol Intake Frequency Comment: Holidays Hx Substance Use: No Preferred Language: Maori Communication Ability: Effective 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 She is slightly hard of hearing. Right foot exam reveals the patient to be exquisitely tender to palpation over the first MTP joint as well as the right ankle joint. She has mild swelling over the first MTP joint as well as the midfoot and ankle. Faint erythema over the first MTP joint. She has pain with passive range of motion of the first MTP joint and the ankle joint. She is able to fire EHL FHL tib ant gastrocsoleus although she has some discomfort in her ankle and first MTP joints with these motions. She has a palpable dorsalis pedis pulse. Difficult to palpate a posterior tib pulse. Toes are slightly cool to the touch, however cap refill is less than 2 seconds. Sensory intact to light touch throughout the foot. She is completely nontender to palpation along the cuboid and base of the fifth metatarsal. Results & Data Vital Signs (Past 12 Hours) Vital Signs Temp Pulse Pulse Resp BP Pulse Ox O2 Del Method 09/21/25 14:03 69 09/21/25 12:20 67 18 106/45 L 95 Nasal Cannula 09/21/25 11:24 36.5 C 64 19 117/65 94 Nasal Cannula 09/21/25 07:59 36.3 C L 68 16 131/55 L 93 Nasal Cannula 09/21/25 07:52 Room Air 09/21/25 06:45 66 09/21/25 03:57 36.3 C L 64 18 122/53 L 95 Nasal Cannula O2 Flow Rate 09/21/25 14:03 09/21/25 12:20 2 09/21/25 11:24 2 09/21/25 07:59 2 09/21/25 07:52 09/21/25 06:45 09/21/25 03:57 2 Diagnostic Findings I independently interpreted her x-rays done during this hospitalization and 3 views of the right foot. There is a chronic appearing ossification adjacent to the cuboid seen on the oblique view. Given her clinical history and exam this does not represent an acute fracture.
[2025-09-21] MEDS: predniSONE 20 MG TAB PO STA (15:30)
--- NOTE | 2025-09-21 15:45 | Hospitalist Progress Note ---
Date of Service September 21, 2025 Assessment & Plan (1) Abdominal pain: Plan 89 yo female with pmhx of CAD status post stent/PVD status post surgery, PAF, hypertension, COPD, MASLD cirrhosis, recurrent C. difficile, DM 2 insulin requiring, Graves' disease status post ablation, hypothyroidism, CRI (baseline creatinine 1.2), chronic anemia (baseline hemoglobin 8-9), chronic thrombocytopenia, RLS, past tobacco abuse presenting with hematochezia likely 2/2 ascending colitis. #Hematochezia #Ascending Colitis,(+) EPEC #Acute Blood Loss Anemia #Cirrhosis -required blood transfusion last night -blood loss likely 2/2 colitis but could be in setting of diverticular bleed, hemorrhoids, less likely perforation -patient states she does not want a colonoscopy at this time Plan: -trend Hgb -GI consult, appreciate recs -trend Hgb another night given age and not wanting colonoscopy -continue ceftriaxone/flagyl in setting of colitis without possible intervention -stop iron, other medication irritants -clear liquid diet for bowel rest -possible discharge tomorrow -discussed case with daughter at length, would like daily updates 09/18 resolving no diarrhea Hg stable at 9.1x 2 days Plt 93 --> 72--> 68 Stool studies: pending patient declining Colonoscopy at this time on Ceftri + Flagyl--> will discuss with GI if needs to be continued, has history of C diff ASA + Plavix held (being taken for CAD s/p stent) Paracentesis cancelled--> ascites mild 09/19 Hematochezia resolved Hemoglobin stable at around 9 for the past 3 days Platelets still trending down, monitor closely Stool studies: Positive for EPEC Currently on ertapenem for UTI Hold aspirin, Plavix in light of thrombocytopenia as per above resume Lasix, spironolactone 09/20 hematochezia resolved Hg stable at 9.3 Plt stable around 50-60s continue Ertapenem day 3/3 hold ASA, Plavix for today (day 5 of holding) (+) lower extremity edema Lasix, Spironolactone held for 3 days starting admission day additional Lasix 20mg IV lasix today continue usual PO Lasix plus Aldactone 09/21 Hg stable Plt improving completed ertapenem course if hemoglobin still stable, resume aspirin tomorrow Creatinine increased to 1.4 Hold Lasix, spironolactone #Right foot pain, edema Likely acute gout flare Evaluated by orthopedic service- does not feel patient has an ankle fracture Start prednisone 20 mg p.o. daily, NSAIDs, fortunately contraindicated in light of CKD # Klebsiella pneumonia UTI history of recurrent C. difficile - Patient reporting severe dysuria to RN during this admission - ID service consulted, recommending 1 dose of gentamicin IV - will avoid gentamicin IV in light of patient's CKD, advanced age, cirrhosis requiring diuretics - completed ertapenem day number 3 out of 3 vancomycin daily times total of 10-day course for C. difficile colitis prophylaxis #Acute hypoxia Chronic bronchitis, COPD/asthma possible component of volume overload in the setting of cirrhosis - chest x-ray showing signs of bronchitis - patient reports chronic cough and sputum production, has not worsened - patient reports having developed severe oral ulcers with nebulizer treatmen t--> declines trial of nebulizer treatment encouraged to use incentive spirometry, flutter valve, Mucinex - Lasix IV per above -- now on room air - will need repeat two-step exercise test prior to discharge #EARL on CKD baseline 1.1-1.2 crea 1.2--> 1.15--> 1.39, Creatinine 1.4 hold diuretics #HTN Amlodipine 2.5mg added monitor PAF, patient NSR hx CAD status post stent/PVD status post surgery,HOLD ASA + Plavix, resume in 1 to 2 days if still without signs of GI bleed COPD, chronic cough symptoms DM 2 insulin requiring, suboptimal control as of recent hemoglobin A1c 8.7 last July 2025 Graves' disease status post ablation/hypothyroidism, euthyroid as of recent outpatient TSH from 2 months ago chronic anemia, hemoglobin at baseline chronic thrombocytopenia, secondary to liver disease--> trending up past tobacco abuse Disposition Admitted to [facility] With telemetry Lives at home by herself Admission and Anticipated Discharge Date Admission Date: September 16, 2025 Subjective resting in chair, not in distress having severe R foot pain since last night unable to step on the R foot breathing is ok no abdominal pain, hematochezia no fever/chills no other symptoms Review of Systems Review of Systems: all noted and negative except for above Physical Exam Physical Exam: General- oriented x 3, not in distress, speaks in sentences with no effort or accessory muscle use Eyes- anicteric Neck- no JVD Lungs- clear breath sounds bilaterally, no rales/wheezes Heart- normal rate, regular rhythm; no murmurs Abdomen- normal bowel sounds, nondistended, soft, nontender Extremities- no pretibial edema, no calf tenderness R foot: mild edema, mild erythema, moderate tenderness, decreased ROM Neuro- alert, oriented x 3; no gross focal neurologic deficits Skin- warm & dry Results & Data Results & Data Vital Signs (Past 12 Hours) Vital Signs Temp Pulse Pulse Resp BP BP Pulse Ox 09/21/25 15:19 36.9 C 60 16 144/76 H 93 09/21/25 14:03 69 09/21/25 12:20 67 18 106/45 L 95 09/21/25 11:24 36.5 C 64 19 117/65 94 09/21/25 07:59 36.3 C L 68 16 131/55 L 93 09/21/25 07:52 09/21/25 06:45 66 09/21/25 03:57 36.3 C L 64 18 122/53 L 95 O2 Del Method O2 Flow Rate 09/21/25 15:19 Nasal Cannula 2 09/21/25 14:03 09/21/25 12:20 Nasal Cannula 2 09/21/25 11:24 Nasal Cannula 2 09/21/25 07:59 Nasal Cannula 2 09/21/25 07:52 Room Air 09/21/25 06:45 09/21/25 03:57 Nasal Cannula 2 all noted and reviewed including below
[2025-09-21] MEDS: REMOVE LIDODERM PATCH SCH (20:35)
[2025-09-22] MEDS ORDERED: PHARMACY GLYCEMIC MGMT CONSULT SCH (08:15)
[2025-09-22] MEDS: predniSONE 20 MG TAB PO SCH (08:41)
[2025-09-22 08:53] LABS: Alanine Aminotransferase 13.0 U/L (7-52); Albumin Globulin Ratio 1.3 (0.9-2); Albumin Level 3.5 gm/dl (3.4-5.0); Alkaline Phosphatase 81.0 U/L (34-104); Anion Gap 6.0 (3-11); Bilirubin,Total 1.0 mg/dl (0.2-1.0); Blood Urea Nitrogen 40.0 mg/dl (6-23); Calcium 9.6 mg/dl (8.6-10.3); Carbon Dioxide 28.0 mmol/L (21-32); Chloride 102.0 mmol/L (98-107); Creatinine Clr Calc Pharmacy 19.2 ml/min; Globulin 2.8 gm/dl (2.5-4.0); Glucose 197.0 mg/dl (70-99(Fasting)); Potassium 5.4 mmol/L (3.5-5.1); Sodium 136.0 mmol/L (136-145); Total Protein 6.3 gm/dl (6.0-8.3)
--- NOTE | 2025-09-22 08:56 | Pharmacy Report ---
Pharmacy Glycemic Short Note 2 - Date of Service September 22, 2025 - Glycemic Short BSG Results (Last 24 hours): 09/21/25 09/21/25 09/21/25 09:30 12:13 17:12 Glucose 171 H POC Glucose 172 H 154 H 09/21/25 09/22/25 20:21 07:53 Glucose POC Glucose 234 H 189 H OUTPATIENT ANTIDIABETIC REGIMEN: * jardiance 25 mg po Qam, Tresiba 44 units Qam, Novolog 6-8 units TIDM ASSESSMENT: * 89 year old female admitted for colitis, uti, gout flare. Pharmacy consulted for glycemic management. PO intake appears minimal over last several days, has been utilizing only novolog SSI. Started on prednisone last evening for possible gout flare. Anticipate blood sugars to start to increase. Fasting BSG 189 mg/dL - hasn't received basal insulin since 09/17. Will plan to initial low dose Lantus 5 units once daily to cover steroid effects. Will tighten novolog to weight based stress 2 dosing. PLAN FOR INPATIENT GLYCEMIC CONTROL: * Hold outpatient oral diabetes medications * Basal insulin * Lantus 5 units once daily * Bolus insulin * NovoLog per scale ACHS or Q6hrs while NPO * Goal Range: Low 140 mg/dL - High 180 mg/dL * Correction Factor: 35 mg/dL/unit * Nutritional / Prandial insulin per carb ratio of 1 unit per 12 grams CHO consumed
[2025-09-22] MEDS ORDERED: EUCERIN CR 120 GM JAR EXT PRN (10:04)
[2025-09-22] MEDS: ASPIRIN 81 MG ECTAB PO SCH (10:15)
[2025-09-22] MEDS: FEXOFENADINE 60 MG TAB PO SCH (10:15)
[2025-09-22] MEDS: SODIUM CHLORIDE 0.9% 1,000 ML IV SCH (10:15)
[2025-09-22] MEDS: LANTUS PER UNIT CHARGE SC SCH (10:15)
--- NOTE | 2025-09-22 12:39 | Nephrology Consultation ---
Date of Consultation September 22, 2025 Assessment & Plan (1) EARL (acute kidney injury): 89-year-old female with extensive medical problems involving multiple vital organs and does have a pre-existing CKD 3B with a creatinine baseline of 1.2. in such high-risk patient it is perfectly expected that she will have some worsening of kidney function in the setting of acute colitis and acute urinary tract infection. her oral intake might be somewhat marginal as she did not even open her eyes. acute kidney injury is hemodynamic in etiology in the setting of acute colitis UTI concomitant diuretics severe worsening of anemia. it might even have progress to some degree of ATN. agree with holding diuretics and gentle hydration for today specially given low blood pressure 95 systolic as much as possible avoid nephrotoxic antibiotics and agents including NSAIDs contrast. I expect some worsening of the kidney function but I do not expect her to go into full-blown kidney failure requiring renal replacement therapy. daily renal panel and CBC input output charting (2) Urinary tract infection due to ESBL Klebsiella: does add to the acute kidney injury and overall hemodynamic decline (3) Colitis: was associated with the abdominal pain as well as bleeding causing acute drop in hemoglobin below 7 requiring blood test she Plan case complexity moderately severe. Total time spent was 62 minutes in aggregate History of Present Illness Reason for Consultation: Acute kidney injury Attending Physician: Francois Hamilton MD History of Present Illness 89-year-old female was admitted September 16 after she presented to the Emergency Department with bloody bowel movement associated with the abdominal pain as well as distention. she is being managed as colitis. she has extensive medical problem list that includes CAD status post stent/PVD status post surgery, PAF, hypertension, COPD, MASLD cirrhosis, recurrent C. difficile, DM 2 insulin requiring, Graves' disease status post ablation, hypothyroidism, chronic kidney disease stage IIIB (baseline creatinine 1.2), chronic anemia (baseline hemoglobin 8-9), chronic thrombocytopenia, RLS, past tobacco abuse. she was last admitted November 2024 for UGIB. Patient refused endoscopy. for the last few days creatinine has been steadily rising and is up to 1.72 on the blood work from this morning she is getting ceftriaxone and Flagyl for infective colitis ROS-----not possible to get any meaningful history from the patient as patient just kept her eyes closed and did not answer my questions Physical Exam Physical Exam: General- eyes closed and did not answer my questions. Neck- supple and no JVD Lungs- clear breath sounds bilaterally, poor quality exam secondary to lack of inspiratory effort Heart- normal rate, regular rhythm; no murmurs Abdomen- soft, nontender Extremities- no pretibial edema Skin- warm & dry Allergies Allergy/AdvReac Type Severity Reaction Status Date / Time camphor Allergy Intermediate Itching Verified 09/16/25 18:42 vitamin E (d-alpha Allergy Intermediate ITCHY Verified 09/16/25 18:42 tocopherol) RASH, HIVES albuterol [From ProAir HFA] AdvReac Intermediate SORE MOUTH Verified 09/16/25 18:42 & TONGUE amoxicillin AdvReac Intermediate CAUSED Verified 09/16/25 18:42 C-DIFF baclofen AdvReac Intermediate Falls Verified 09/16/25 18:42 clavulanic acid AdvReac Intermediate CAUSED Verified 09/16/25 18:42 C-DIFF dulaglutide [From Trulicity] AdvReac Intermediate NAUSEA/VOMI Verified 09/16/25 18:42 TING ropinirole AdvReac Intermediate Falls Verified 09/16/25 18:42 tramadol AdvReac Intermediate Falls Verified 09/16/25 18:42 Qiexejr-[id number] Reductase AdvReac Unknown TOLERATES Verified 09/16/25 18:42 Inhibitor CRESTOR ONLY Home Medications Medication Instructions Recorded Confirmed Type aspirin 81 mg tablet,delayed 81 mg PO QAM 04/10/19 09/16/25 History release (Kendra Low Dose Aspirin) atorvastatin 20 mg tablet 20 mg PO QAM 04/10/19 09/16/25 History clopidogrel 75 mg tablet 75 mg PO QAM 04/10/19 09/16/25 History ferrous sulfate 325 mg (65 mg 325 mg PO 3XWK 01/01/22 09/16/25 History iron) tablet (FeroSul) gabapentin 300 mg capsule 300 mg PO HS Pain 01/01/22 09/16/25 History insulin degludec 200 unit/mL (3 44 unit subcut QAM 01/01/22 09/16/25 History mL) subcutaneous pen (Tresiba FlexTouch U-200 insulin) empagliflozin 25 mg tablet 25 mg PO QAM 09/12/22 09/16/25 History (Jardiance) furosemide 40 mg tablet 20 mg PO QAM 09/12/22 09/16/25 History fluticasone propionate 50 1 spray intranasal BID 07/10/23 09/16/25 History mcg/actuation nasal spray,suspension hydroxyzine HCl 10 mg tablet 10 mg PO Q12 PRN Itching 09/02/23 09/16/25 History melatonin 5 mg chewable tablet 10 mg PO HS PRN Sleep 09/02/23 09/16/25 History famotidine 40 mg tablet 40 mg PO DAILY 12/18/23 09/16/25 History Lactobacillus acidophilus 1 tab PO DAILY 09/16/25 09/16/25 History (Acidophilus chewable tablet) acetaminophen 500 mg tablet 1,000 mg PO BID PRN Pain 09/16/25 09/16/25 History (Tylenol Extra Strength) albuterol sulfate 90 mcg/actuation 2 puff inhalation Q4H PRN 09/16/25 09/16/25 History aerosol inhaler Shortness Of Breath Or Wheezing cholecalciferol (vitamin D3) 1,250 1,250 mcg PO WK 09/16/25 09/16/25 History mcg (50,000 unit) capsule cranberry extract 500 mg capsule 500 mg PO HS 09/16/25 09/16/25 History (Cranberry Concentrate) guaifenesin 100 mg/5 mL oral liquid 400 mg PO TID PRN Cough 09/16/25 09/16/25 History insulin aspart U-100 100 unit/mL 6 - 8 unit subcut TIDM 09/16/25 09/16/25 History (3 mL) subcutaneous pen (Novolog FlexPen U-100 Insulin aspart) levothyroxine 88 mcg tablet 88 mcg PO DAILYBB 09/16/25 09/16/25 History nystatin 100,000 unit/gram topical 1 applic topical BID PRN Skin 09/16/25 09/16/25 History cream Irritation nystatin 100,000 unit/mL oral 5 ml PO QID 09/16/25 09/16/25 History suspension pantoprazole 20 mg tablet,delayed 20 mg PO DAILYBB 09/16/25 09/16/25 History release spironolactone 50 mg tablet 50 mg PO BID 09/16/25 09/16/25 History Patient History Medical History Bilateral high frequency sensorineural hearing loss History of Graves' disease History of acute renal failure Disorder of acid-base balance DVT prophylaxis EARL (acute kidney injury) Metabolic acidosis Hypoglycemic episode in patient with diabetes mellitus Pneumonia Sinus bradycardia Hypertension PAF (paroxysmal atrial fibrillation) Atrial fibrillation with rapid ventricular response Cirrhosis Sepsis Acute metabolic encephalopathy Hypothyroidism PAD (peripheral artery disease) Cholelithiasis Pancytopenia Cirrhosis Aneurysm of infrarenal abdominal aorta GERD (gastroesophageal reflux disease) Graves disease Chest pain CKD (chronic kidney disease), stage III COPD (chronic obstructive pulmonary disease) PAD (peripheral artery disease) HLD (hyperlipidemia) Diabetes mellitus, type II Anemia HTN (hypertension) Family History Other Diabetes Hypertension Social History Smoking Status: Former smoker Tobacco Type: Cigarettes Second Hand Exposure: No; Do You Dip or Chew Tobacco: No; Tobacco Cessation Education Requested by Patient: No Hx Alcohol Use: Yes Alcohol type: beer Alcohol Intake Frequency: Monthly or Less Alcohol Intake Frequency Comment: Holidays Hx Substance Use: No Preferred Language: Lao Communication Ability: Effective Tool Chaser Required: No Beliefs That Will Affect Care: None marital status: Current Living Situation: Alone Current Living Situation Comment: pt lives in apartment alone How many Children do You have: 3 Other Information That Helps Us Care for You: No Feels Safe at Home: Yes Safety Concerns: Feels Safe At This Time Assistive Devices: Cane, Hearing Aid - Bilateral and Walker Results & Data Vital Signs (Past 12 Hours) Vital Signs Temp Pulse Pulse Resp BP BP Pulse Ox 09/22/25 11:14 36.4 C L 62 16 95/37 L 94 09/22/25 07:38 36.6 C 61 16 112/54 L 91 09/22/25 06:45 62 09/22/25 03:46 36.4 C L 78 20 119/65 96 O2 Del Method O2 Flow Rate 09/22/25 11:14 Nasal Cannula 3 09/22/25 07:38 Room Air 09/22/25 06:45 09/22/25 03:46 Nasal Cannula 2 Laboratory Results reviewed CBC renal panel Diagnostic Findings imaging including CT abdomen and chest x-ray-- no CHF and no evidence of hydronephrosis
--- NOTE | 2025-09-22 16:43 | Hospitalist Progress Note ---
Date of Service September 22, 2025 Assessment & Plan (1) Abdominal pain: Plan 89 yo female with pmhx of CAD status post stent/PVD status post surgery, PAF, hypertension, COPD, MASLD cirrhosis, recurrent C. difficile, DM 2 insulin requiring, Graves' disease status post ablation, hypothyroidism, CRI (baseline creatinine 1.2), chronic anemia (baseline hemoglobin 8-9), chronic thrombocytopenia, RLS, past tobacco abuse presenting with hematochezia likely 2/2 ascending colitis. #Hematochezia #Ascending Colitis,(+) EPEC #Acute Blood Loss Anemia #Cirrhosis -required blood transfusion last night -blood loss likely 2/2 colitis but could be in setting of diverticular bleed, hemorrhoids, less likely perforation -patient states she does not want a colonoscopy at this time Plan: -trend Hgb -GI consult, appreciate recs -trend Hgb another night given age and not wanting colonoscopy -continue ceftriaxone/flagyl in setting of colitis without possible intervention -stop iron, other medication irritants -clear liquid diet for bowel rest -possible discharge tomorrow -discussed case with daughter at length, would like daily updates 09/18 resolving no diarrhea Hg stable at 9.1x 2 days Plt 93 --> 72--> 68 Stool studies: pending patient declining Colonoscopy at this time on Ceftri + Flagyl--> will discuss with GI if needs to be continued, has history of C diff ASA + Plavix held (being taken for CAD s/p stent) Paracentesis cancelled--> ascites mild 09/19 Hematochezia resolved Hemoglobin stable at around 9 for the past 3 days Platelets still trending down, monitor closely Stool studies: Positive for EPEC Currently on ertapenem for UTI Hold aspirin, Plavix in light of thrombocytopenia as per above resume Lasix, spironolactone 09/20 hematochezia resolved Hg stable at 9.3 Plt stable around 50-60s continue Ertapenem day 3/3 hold ASA, Plavix for today (day 5 of holding) (+) lower extremity edema Lasix, Spironolactone held for 3 days starting admission day additional Lasix 20mg IV lasix today continue usual PO Lasix plus Aldactone 09/21 Hg stable Plt improving completed ertapenem course if hemoglobin still stable, resume aspirin tomorrow Creatinine increased to 1.4 Hold Lasix, spironolactone 09/22 Hg stable at ~9 Platelets also improving Has completed ertapenem course for colitis and UTI Resume aspirin 81 mg daily Hold Plavix Creatinine increased to 1.7 likely from acute colitis, UTI Hold diuretics Start gentle IV fluids Nephrology service consulted, appreciate recommendations #Right foot pain, edema Likely acute gout flare Evaluated by orthopedic service- does not feel patient has an ankle fracture Start prednisone 20 mg p.o. daily, NSAIDs, fortunately contraindicated in light of CKD 09/22 Foot pain improved Continue prednisone 20 mg p.o. daily hopefully for 2-3 more days # Klebsiella pneumonia UTI history of recurrent C. difficile - Patient reporting severe dysuria to RN during this admission - ID service consulted, recommending 1 dose of gentamicin IV - will avoid gentamicin IV in light of patient's CKD, advanced age, cirrhosis requiring diuretics - completed ertapenem day number 3 out of 3 vancomycin daily times total of 10-day course for C. difficile colitis prophylaxis #Acute hypoxia Chronic bronchitis, COPD/asthma possible component of volume overload in the setting of cirrhosis - chest x-ray showing signs of bronchitis - patient reports chronic cough and sputum production, has not worsened - patient reports having developed severe oral ulcers with nebulizer treatment--> declines trial of nebulizer treatment encouraged to use incentive spirometry, flutter valve, Mucinex - Lasix IV per above -- now on room air - will need repeat two-step exercise test prior to discharge #EARL on CKD baseline 1.1-1.2 crea 1.2--> 1.15--> 1.39, Creatinine 1.4 hold diuretics 09/22 as per above #HTN Amlodipine 2.5mg added monitor PAF, patient NSR hx CAD status post stent/PVD status post surgery,HOLD ASA + Plavix, resume in 1 to 2 days if still without signs of GI bleed COPD, chronic cough symptoms DM 2 insulin requiring, suboptimal control as of recent hemoglobin A1c 8.7 last July 2025 Graves' disease status post ablation/hypothyroidism, euthyroid as of recent outpatient TSH from 2 months ago chronic anemia, hemoglobin at baseline chronic thrombocytopenia, secondary to liver disease--> trending up past tobacco abuse Disposition Admitted to [facility] With telemetry Lives at home by herself Admission and Anticipated Discharge Date Admission Date: September 16, 2025 Subjective seen resting in bed, sleeping but easily awakened Oriented x 3, answering questions appropriately States right foot pain is better today, from 10 out of 10 currently 6 out of 10 States breathing is fine, minimal cough which is her baseline Denies abdominal pain or melena/hematochezia No other symptoms Review of Systems Review of Systems: all noted and negative except for above Physical Exam Physical Exam: General- oriented x 3, not in distress, speaks in sentences with no effort or accessory muscle use Eyes- anicteric Neck- no JVD Lungs- clear breath sounds BL Heart- normal rate, regular rhythm; no murmurs Abdomen- normal bowel sounds, nondistended, soft, nontender Extremities- R foot: mild edema, mild erythema, range of motion improving Left foot trace edema Neuro- alert, oriented x 3; no gross focal neurologic deficits Skin- warm & dry Results & Data Results & Data Vital Signs (Past 12 Hours) Vital Signs Temp Pulse Pulse Resp BP Pulse Ox O2 Del Method 09/22/25 16:03 36.4 C L 62 16 115/52 L 95 Room Air 09/22/25 13:02 58 L 09/22/25 11:14 36.4 C L 62 16 95/37 L 94 Nasal Cannula 09/22/25 07:38 36.6 C 61 16 112/54 L 91 Room Air 09/22/25 06:45 62 O2 Flow Rate 09/22/25 16:03 09/22/25 13:02 09/22/25 11:14 3 09/22/25 07:38 09/22/25 06:45 all noted and reviewed including below
[2025-09-22] MEDS: IRON SUCROSE 300 MG in SODIUM CHLORIDE 0.9% 250 ML IV ONE (17:48)
[2025-09-22] MEDS: ACETAMINOPHEN 500 MG TAB PO PRN (22:22)
[2025-09-23 07:02] LABS: Alanine Aminotransferase 11.0 U/L (7-52); Albumin Globulin Ratio 1.4 (0.9-2); Albumin Level 3.3 gm/dl (3.4-5.0); Alkaline Phosphatase 65.0 U/L (34-104); Anion Gap 6.0 (3-11); Bilirubin,Total 0.7 mg/dl (0.2-1.0); Blood Urea Nitrogen 46.0 mg/dl (6-23); Calcium 8.7 mg/dl (8.6-10.3); Carbon Dioxide 23.0 mmol/L (21-32); Chloride 107.0 mmol/L (98-107); Creatinine Clr Calc Pharmacy 20.1 ml/min; Globulin 2.3 gm/dl (2.5-4.0); Glucose 277.0 mg/dl (70-99(Fasting)); Potassium 4.8 mmol/L (3.5-5.1); Sodium 136.0 mmol/L (136-145); Total Protein 5.6 gm/dl (6.0-8.3)
--- NOTE | 2025-09-23 07:18 | Pharmacy Report ---
Pharmacy Glycemic Short Note 2 - Date of Service September 23, 2025 - Glycemic Short BSG Results (Last 24 hours): 09/22/25 09/22/25 09/22/25 07:53 08:21 11:55 Glucose 197 H POC Glucose 189 H 298 H 09/22/25 09/22/25 09/23/25 16:53 19:48 05:37 Glucose 277 H POC Glucose 296 H 253 H OUTPATIENT ANTIDIABETIC REGIMEN: * jardiance 25 mg po Qam, Tresiba 44 units Qam, Novolog 6-8 units TIDM ASSESSMENT: 09/23 * Patient received total of 26 units of insulin yesterday, of which 5 units were basal * Fasting BSG >200 - will titrate basal up to 12 units today to cover prednisone effects * Tighten to weight based stress 3 dosing for novolog today 09/22 * 89 year old female admitted for colitis, uti, gout flare. Pharmacy consulted for glycemic management. PO intake appears minimal over last several days, has been utilizing only novolog SSI. Started on prednisone last evening for possible gout flare. Anticipate blood sugars to start to increase. Fasting BSG 189 mg/dL - hasn't received basal insulin since 09/17. Will plan to initial low dose Lantus 5 units once daily to cover steroid effects. Will tighten novolog to weight based stress 2 dosing. PLAN FOR INPATIENT GLYCEMIC CONTROL: * Hold outpatient oral diabetes medications * Basal insulin * Lantus 12 units once daily * Bolus insulin * NovoLog per scale ACHS or Q6hrs while NPO * Goal Range: Low 120 mg/dL - High 160 mg/dL * Correction Factor: 25 mg/dL/unit * Nutritional / Prandial insulin per carb ratio of 1 unit per 8 grams CHO consumed
--- NOTE | 2025-09-23 08:53 | Nephrology Progress Note ---
Date of Service September 23, 2025 Assessment & Plan Admission and Anticipated Discharge Date Admission Date: September 16, 2025 Subjective Assessment & Plan (1) EARL (acute kidney injury): 89-year-old female with extensive medical problems involving multiple vital organs and does have a pre-existing CKD 3B with a creatinine baseline of 1.2. in such high-risk patient it is perfectly expected that she will have some worsening of kidney function in the setting of acute colitis and acute urinary tract infection. acute kidney injury is hemodynamic in etiology in the setting of acute colitis UTI concomitant diuretics severe worsening of anemia. Creat dropped a bit from yesterday. So good sign NO need of IVF but continue to hold Diuretics and RAULITO/ARB She can have highish BP. I do not expect her to go into full-blown kidney failure requiring renal replacement therapy. Daily renal panel and CBC Input output charting (2) Urinary tract infection due to ESBL Klebsiella: does add to the acute kidney injury and overall hemodynamic decline (3) Colitis: was associated with the abdominal pain as well as bleeding causing acute drop in hemoglobin below 7 requiring blood test she S--BP not as low. she finished 90% of meal. renal labs slightly better ROS-----not possible to get any meaningful history from the patient as patient just kept her eyes closed and did not answer my questions Physical Exam Physical Exam: General- eyes closed and did not answer my questions. Neck- supple and no JVD Lungs- clear breath sounds bilaterally, poor quality exam secondary to lack of inspiratory effort Heart- normal rate, regular rhythm; no murmurs Abdomen- soft, nontender Extremities- no pretibial edema Skin- warm & dry Results & Data Vital Signs (Past 12 Hours) Vital Signs Temp Pulse Pulse Resp BP Pulse Ox O2 Del Method 09/23/25 07:41 36.3 C L 71 16 123/64 88 L Nasal Cannula 09/23/25 07:39 72 09/23/25 02:55 36.4 C L 72 18 144/52 H 94 Nasal Cannula 09/23/25 00:02 Room Air, Nasal Cannula 09/23/25 00:00 71 09/22/25 22:26 36.5 C 77 18 142/64 H 95 Nasal Cannula O2 Flow Rate 09/23/25 07:41 2 09/23/25 07:39 09/23/25 02:55 2 09/23/25 00:02 2 09/23/25 00:00 09/22/25 22:26 2
[2025-09-23 09:09] LABS: Hematocrit (blood only) 29.3 % (37.0-47.0); Hemoglobin 9.0 g/dL (12.0-16.0); Immature Granulocytes # (auto) 0.03 K/uL (0.01-0.20); Immature Granulocytes % (auto) 0.6 %; Mean Corpuscular Hemoglobin 27.9 pg (25.0-34.0); Mean Corpuscular Volume 90.7 fL (80.0-100.0); Platelet Count 60 K/uL (130-400); RDW Standard Deviation 54.4 fL (36.4-46.3); Red Blood Count 3.23 M/uL (4.20-5.40); White Blood Count 5.09 K/ul (4.8-10.8)
[2025-09-23] MEDS: LANTUS PER UNIT CHARGE SC SCH (09:45)
--- NOTE | 2025-09-23 17:54 | Hospitalist Progress Note ---
Date of Service September 23, 2025 Assessment & Plan (1) Colitis: (2) Anemia: (3) Urinary tract infection due to ESBL Klebsiella: (4) EARL (acute kidney injury): (5) Gout attack: Plan: 1) Abdominal pain: Plan 89 yo female with pmhx of CAD status post stent/PVD status post surgery, PAF, hypertension, COPD, MASLD cirrhosis, recurrent C. difficile, DM 2 insulin requiring, Graves' disease status post ablation, hypothyroidism, CRI (baseline creatinine 1.2), chronic anemia (baseline hemoglobin 8-9), chronic thrombocytopenia, RLS, past tobacco abuse presenting with hematochezia likely 2/2 ascending colitis. #Hematochezia #Ascending Colitis,(+) EPEC #Acute Blood Loss Anemia #Cirrhosis -required 1 unit PRBC -blood loss likely 2/2 colitis but could be in setting of diverticular bleed, hemorrhoids, less likely perforation -patient states she does not want a colonoscopy at this time - Hg remained stable ASA resumed yesterday, tolerating well Plan: - if Hg, Plt stable, resume Plavix in 2-3 days # Klebsiella pneumonia UTI history of recurrent severe C. difficile - Patient reporting severe dysuria to RN during this admission - ID service consulted, recommending 1 dose of gentamicin IV - avoided gentamicin IV in light of patient's CKD, advanced age, cirrhosis requiring diuretics - completed ertapenem day number 3 out of 3 vancomycin daily , Day #5, total of 10-day course for C. difficile colitis prophylaxis #EARL on CKD baseline 1.1-1.2 crea 1.2---> 1.7--> 1.6 likely secondary to Colitis, acute blood loss anemia, UTI holding usual Lasix and spironolactone Nephrology service on board #Right foot pain, edema Likely acute gout flare Evaluated by orthopedic service- foot xray reviewed, no evidence of ankle fracture, likely acute gout flare Started prednisone 20 mg p.o. daily, NSAIDs, fortunately contraindicated in light of CKD 09/23 Foot pain, swelling responding well to Prednisone, mostly resolved Continue prednisone 20 mg p.o. daily, dc in 1-2 days #Acute hypoxia Chronic bronchitis, COPD/asthma possible component of volume overload in the setting of cirrhosis - chest x-ray showing signs of bronchitis - patient reports having developed severe oral ulcers with nebulizer treatment--> declines trial of nebulizer treatment encouraged to use incentive spirometry, flutter valve, Mucinex - Lasix IV x 1 dose given -- now on room air -- will need repeat two-step exercise test prior to discharge #HTN Amlodipine 2.5mg added monitor PAF, patient NSR hx CAD status post stent/PVD status post surgery,ASA resumed, resume Plavix in 2-3 days if still without signs of GI bleed COPD, chronic cough symptoms DM 2 insulin requiring, suboptimal control as of recent hemoglobin A1c 8.7 last July 2025 Graves' disease status post ablation/hypothyroidism, euthyroid as of recent outpatient TSH from 2 months ago chronic anemia, as per above chronic thrombocytopenia, secondary to liver disease--> trending up past tobacco abuse Disposition Admitted to [facility] With telemetry Lives at home by herself PT recommending acute rehab, will need to be evaluated now that patient's acute gout flare at the foot is mostly resolved Admission and Anticipated Discharge Date Admission Date: September 16, 2025 Subjective seen resting in bed, comfortable states she feels fine overall foot pain is much better- mostly resolved no shortness of breath, cough no problems with urination no other symptoms Review of Systems Review of Systems: all noted and negative except for above Physical Exam Physical Exam: General- oriented x 3, not in distress, speaks in sentences with no effort or accessory muscle use Eyes- anicteric Neck- no JVD Lungs- clear breath sounds BL Heart- normal rate, regular rhythm; no murmurs Abdomen- normal bowel sounds, nondistended, soft, no tenderness Extremities- no pretibial edema, no calf tenderness R foot: no edema, very mild erythema on the dorsal aspect, ROM almost full Neuro- alert, oriented x 3; no gross focal neurologic deficits Skin- warm & dry Results & Data Results & Data Vital Signs (Past 12 Hours) Vital Signs Temp Pulse Pulse Resp BP Pulse Ox O2 Del Method 09/23/25 14:54 36.6 C 68 16 169/65 H 94 Room Air 09/23/25 14:00 58 L 09/23/25 11:36 36.3 C L 70 16 133/56 L 96 Nasal Cannula 09/23/25 11:32 Nasal Cannula 09/23/25 07:41 36.3 C L 71 16 123/64 88 L Nasal Cannula 09/23/25 07:39 72 O2 Flow Rate 09/23/25 14:54 09/23/25 14:00 09/23/25 11:36 2 09/23/25 11:32 2 09/23/25 07:41 2 09/23/25 07:39 all noted and reviewed including below (2) Anemia Anemia type: unspecified type Qualified Code(s): D64.9 - Anemia, unspecified
[2025-09-24 07:02] LABS: Hematocrit (blood only) 29.6 % (37.0-47.0); Hemoglobin 9.3 g/dL (12.0-16.0); Immature Granulocytes # (auto) 0.04 K/uL (0.01-0.20); Immature Granulocytes % (auto) 1.0 %; Mean Corpuscular Hemoglobin 28.5 pg (25.0-34.0); Mean Corpuscular Volume 90.8 fL (80.0-100.0); Platelet Count 57 K/uL (130-400); RDW Standard Deviation 55.8 fL (36.4-46.3); Red Blood Count 3.26 M/uL (4.20-5.40); White Blood Count 3.98 K/ul (4.8-10.8)
[2025-09-24 07:36] LABS: Alanine Aminotransferase 14.0 U/L (7-52); Albumin Globulin Ratio 1.3 (0.9-2); Albumin Level 3.3 gm/dl (3.4-5.0); Alkaline Phosphatase 66.0 U/L (34-104); Anion Gap 6.0 (3-11); Bilirubin,Total 0.6 mg/dl (0.2-1.0); Blood Urea Nitrogen 52.0 mg/dl (6-23); Calcium 9.2 mg/dl (8.6-10.3); Carbon Dioxide 24.0 mmol/L (21-32); Chloride 112.0 mmol/L (98-107); Creatinine Clr Calc Pharmacy 19.8 ml/min; Globulin 2.5 gm/dl (2.5-4.0); Glucose 190.0 mg/dl (70-99(Fasting)); Potassium 5.0 mmol/L (3.5-5.1); Sodium 142.0 mmol/L (136-145); Total Protein 5.8 gm/dl (6.0-8.3)
[2025-09-24 07:55] VITALS: TEMP 97.3
[2025-09-24 11:27] VITALS: BP 142/65; RESP 18; O2SAT 99
--- NOTE | 2025-09-24 11:58 | Discharge Summary ---
Discharge Summary Date of Service September 24, 2025 Principal Dx & Hospital Course #1 = Principal Diagnosis (1) Colitis: (2) Anemia: (3) Urinary tract infection due to ESBL Klebsiella: (4) EARL (acute kidney injury): (5) Gout attack: 89 yo female with pmhx of CAD status post stent/PVD status post surgery, PAF, hypertension, COPD, MASLD cirrhosis, recurrent C. difficile, DM 2 insulin requiring, Graves' disease status post ablation, hypothyroidism, CRI (baseline creatinine 1.2), chronic anemia (baseline hemoglobin 8-9), chronic thrombocytopenia, RLS, past tobacco abuse presenting with hematochezia likely 2/2 ascending colitis. #Hematochezia #Ascending Colitis,(+) EPEC #Acute Blood Loss Anemia #Cirrhosis -required 1 unit PRBC -blood loss likely 2/2 colitis but could be in setting of diverticular bleed, hemorrhoids, less likely perforation -patient states she does not want a colonoscopy at this time - Hg remained stable ASA resumed yesterday, tolerating well Plan: - resume plavix in a few days, hold for now # Klebsiella pneumonia UTI history of recurrent severe C. difficile - Patient reporting severe dysuria to RN during this admission - ID service consulted, recommending 1 dose of gentamicin IV - avoided gentamicin IV in light of patient's CKD, advanced age, cirrhosis requiring diuretics - completed ertapenem day number 3 out of 3 vancomycin daily , Day #6, total of 10-day course for C. difficile colitis prophylaxis #EARL on CKD baseline 1.1-1.2 crea 1.2---> 1.7--> 1.6 likely secondary to Colitis, acute blood loss anemia, UTI holding usual Lasix and spironolactone Nephrology service on board #Right foot pain, edema Likely acute gout flare Evaluated by orthopedic service- foot xray reviewed, no evidence of ankle fracture, likely acute gout flare Started prednisone 20 mg p.o. daily, NSAIDs, fortunately contraindicated in light of CKD 09/23 Foot pain, swelling responding well to Prednisone, mostly resolved Continue prednisone 20 mg p.o. daily, dc in 1-2 days #Acute hypoxia Chronic bronchitis, COPD/asthma possible component of volume overload in the setting of cirrhosis - chest x-ray showing signs of bronchitis - patient reports having developed severe oral ulcers with nebulizer treatment--> declines trial of nebulizer treatment encouraged to use incentive spirometry, flutter valve, Mucinex - Lasix IV x 1 dose given -- now on room air --going home with home oxygen post 2 step #HTN Amlodipine 2.5mg added monitor PAF, patient NSR hx CAD status post stent/PVD status post surgery,ASA resumed, resume Plavix in 2-3 days if still without signs of GI bleed COPD, chronic cough symptoms DM 2 insulin requiring, suboptimal control as of recent hemoglobin A1c 8.7 last July 2025 Graves' disease status post ablation/hypothyroidism, euthyroid as of recent outpatient TSH from 2 months ago chronic anemia, as per above chronic thrombocytopenia, secondary to liver disease--> trending up past tobacco abuse Notes For Next Care Provider 89 yo female with pmhx of CAD status post stent/PVD status post surgery, PAF, hypertension, COPD, MASLD cirrhosis, recurrent C. difficile, DM 2 insulin requiring, Graves' disease status post ablation, hypothyroidism, CRI (baseline creatinine 1.2), chronic anemia (baseline hemoglobin 8-9), chronic thrombocytopenia, RLS, past tobacco abuse presenting with hematochezia. On medicine, found to have EPEC, treated conservatively. Ortho consulted for gout, recommended treatment for gout. ID consulted for EPEC and Klebsiella UTI, recommended stopping abx given likely urinary colonization. Patient vehemently against scopes despite hematochezia.. PT/OT evaluated patient, recommended SNF, patient refused. Patient required oxygen throughout stay, 2 step confirmed home oxygen need, patient agreeable. -92% on room air staying still, 85% with movement, which improves to 95% on 2L NC. See 2 step in chart (not able to copy into this summary) To do: [ ] titrate off of oxygen [ ] titration of lasix and aldactone -Incidental Findings: 3.8cm aortic anurysm, severe diverticulosis, chronic pleural disease, right foot small cuboid fracture Medication Changes From Visit -see below Admission HPI Per Admitting Provider History obtained from patient, family, and records. Medical history significant for CAD status post stent/PVD status post surgery, PAF, hypertension, COPD, MASLD cirrhosis, recurrent C. difficile, DM 2 insulin requiring, Graves' disease status post ablation, hypothyroidism, CRI (baseline creatinine 1.2), chronic anemia (baseline hemoglobin 8-9), chronic thrombocytopenia, RLS, past tobacco abuse. Last confinement November 2024 for UGIB. Patient refused endoscopy. This afternoon, patient noted bloody bowel movement associated with achy lower abdominal pain. Increased abdominal distention. Denies hematuria symptoms. No chest pain. 1 episode of bilious emesis last night. Chronic cough symptoms. Patient more short of breath than usual. Dizziness described as lightheadedness. Denies headache symptoms. No recent antibiotics, out-of-town travel, or known sick contacts. Highest SBP of 180s documented at the ER. Medical History as above 2022 EGD showed portal hypertensive gastropathy, esophageal varices No recent colonoscopies on file. 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 External ears normal. No rhinorrhea. Moist mucous membranes. Neck: Supple, full range of motion, no observable masses, No meningeal sign. Lungs: mild rhonchi CV: RRR, no edema. Abdomen: mild tenderness in LLQ MSK: No joint swelling, no redness. Skin: No rashes, petechiae, lesions. Normal color per patient. Neuro: Normal Gait, Grossly intact. Psych: Appropriate for situation. Updated Medication List Medication Instructions Recorded Confirmed Type aspirin 81 mg tablet,delayed 81 mg PO QAM 04/10/19 09/16/25 History release (Kendra Low Dose Aspirin) atorvastatin 20 mg tablet 20 mg PO QAM 04/10/19 09/16/25 History clopidogrel 75 mg tablet 75 mg PO QAM 04/10/19 09/16/25 History ferrous sulfate 325 mg (65 mg 325 mg PO 3XWK 01/01/22 09/16/25 History iron) tablet (FeroSul) gabapentin 300 mg capsule 300 mg PO HS Pain 01/01/22 09/16/25 History insulin degludec 200 unit/mL (3 44 unit subcut QAM 01/01/22 09/16/25 History mL) subcutaneous pen (Tresiba FlexTouch U-200 insulin) empagliflozin 25 mg tablet 25 mg PO QAM 09/12/22 09/16/25 History (Jardiance) furosemide 40 mg tablet 20 mg PO QAM 09/12/22 09/16/25 History fluticasone propionate 50 1 spray intranasal BID 07/10/23 09/16/25 History mcg/actuation nasal spray,suspension hydroxyzine HCl 10 mg tablet 10 mg PO Q12 PRN Itching 09/02/23 09/16/25 History melatonin 5 mg chewable tablet 10 mg PO HS PRN Sleep 09/02/23 09/16/25 History famotidine 40 mg tablet 40 mg PO DAILY 12/18/23 09/16/25 History Lactobacillus acidophilus 1 tab PO DAILY 09/16/25 09/16/25 History (Acidophilus chewable tablet) acetaminophen 500 mg tablet 1,000 mg PO BID PRN Pain 09/16/25 09/16/25 History (Tylenol Extra Strength) albuterol sulfate 90 mcg/actuation 2 puff inhalation Q4H PRN 09/16/25 09/16/25 History aerosol inhaler Shortness Of Breath Or Wheezing cholecalciferol (vitamin D3) 1,250 1,250 mcg PO WK 09/16/25 09/16/25 History mcg (50,000 unit) capsule cranberry extract 500 mg capsule 500 mg PO HS 09/16/25 09/16/25 History (Cranberry Concentrate) guaifenesin 100 mg/5 mL oral liquid 400 mg PO TID PRN Cough 09/16/25 09/16/25 History insulin aspart U-100 100 unit/mL 6 - 8 unit subcut TIDM 09/16/25 09/16/25 History (3 mL) subcutaneous pen (Novolog FlexPen U-100 Insulin aspart) levothyroxine 88 mcg tablet 88 mcg PO DAILYBB 09/16/25 09/16/25 History nystatin 100,000 unit/gram topical 1 applic topical BID PRN Skin 09/16/25 09/16/25 History cream Irritation nystatin 100,000 unit/mL oral 5 ml PO QID 09/16/25 09/16/25 History suspension pantoprazole 20 mg tablet,delayed 20 mg PO DAILYBB 09/16/25 09/16/25 History release spironolactone 50 mg tablet 50 mg PO BID 09/16/25 09/16/25 History pantoprazole 40 mg tablet,delayed 40 mg PO BID 30 days #60 tabs 09/24/25 Rx release prednisone 20 mg tablet 20 mg PO DAILY 2 days #2 tabs 09/24/25 Rx vancomycin 125 mg capsule 125 mg PO DAILY 5 days #5 caps 09/24/25 Rx Hospital Stay Data Consultations 09/16/25 20:49 ED Decision to Admit Stat 09/17/25 04:19 Consult Gastroenterology Routine 09/18/25 19:03 Consult Infectious Diseases Routine 09/20/25 23:42 Consult Orthopedic Surgery Routine 09/21/25 10:03 Consult Orthopedic Surgery Routine 09/22/25 09:02 Consult Nephrology Routine Diagnostic Imagining Performed 09/16/25 18:34 CT abd pelvis IV con only Stat Pending Results Patient Have Any Pending Studies at Discharge: No Discharge Instructions Given to Patient (Per Discharging Provider) Diagnoses: EPEC Ascending Colitis, Cirrhosis, Klebsiella UTI, Chronic Hypoxic Respiratory Failure, gout Incidental Findings: 3.8cm aortic anurysm, severe diverticulosis, chronic pleural disease, right foot small cuboid fracture Follow Ups: PCP, GI, pulmonary 1. Please follow up with PCP, GI, pulmonary. 2. Stay hydrated! 3. Please wear your oxygen and be careful walking; PT/OT recommended [facility] for rehab but you would like to go home. Total Time Total Time Spent Total Time Spent (In Minutes): I spent a total of 35 minutes in direct patient care, including [id number] time with the patient and/or family, reviewing medical records, ordering and reviewing diagnostic tests, and coordinating care with other healthcare providers. This time includes: history taking, physical examination, medical decision making, counseling, ECG interpretation, imaging interpretation, lab interpretation, orders, and education, excluding time spent in the performance of separately billed services.
[2025-09-24 15:51] VITALS: PULSE 57
== END 2025-09-24 16:27 | disposition home health service (06) | DRG 372 ==
LOC: ED 18:10 → SUATTDRO 21:00 → 2W 21:00